=== PATIENT | female | born 1960 | race Caucasian/White ===

== ENCOUNTER 2016-02-08 15:15 | Outpatient (RCR) | payer MEDICAID ==
--- OUTSIDE RECORDS SUMMARY | 2016-02-04 15:07 | XMS REPORT | Continuity of Care Document ---
[facility] Address Unknown Phone Unavailable Care Team Providers Care Teacher Vocal Name Role Phone Marcus Richard PCP [phone] Source Comments Some departments are not documenting in the electronic medical record. If you do not see the information that you expected, contact Release of Information in the Health Information Management department at [phone] for further assistance in locating additional records.[facility] Active Allergies and Adverse Reactions Allergen Noted Date Severity Reactions Comments Erythromycin 03/23/2008 STOMACH UPSET All mycins Iodine 03/23/2008 HIVES Tolerates "BetaCept," Not Betadine. Iv Contrast Dye, Iodine 03/23/2008 HIVES Major Reaction to Containing Contrast. Latex 03/23/2008 HIVES, RASH, REDNESS Sulfa (Sulfonamide 03/23/2008 STOMACH UPSET Antibiotics) Current Medications Prescription Sig. Disp. Refills Start End Date Status Date alprazolam (XANAX) 0.5 mg Take 1 Tab by mouth Active tablet Daily. metformin (GLUCOPHAGE) Take 1 Tab by mouth Three Active 850 mg tablet Times Daily Before Meals. 30 min prior to each meal fish oil /omega-3 fatty Take 1 Cap by mouth Active acids (SEA-OMEGA) Daily. 340/1000 mg Cap MULTIVITAMINS Take 1 Cap by mouth Active (MULTI-VITAMIN PO) Daily. polysaccharide iron Take 150 mg by mouth Active complex (NIFEREX) 150 mg Twice Daily. Prescribed capsule to take bid, but has been taking 1 tab every other day, as of 03/10/09. hydrocodone/acetaminophen Take 1-2 Tabs by mouth 20 0 03/31/20 Active (VICODIN) 5/500 mg tablet Every 6 Hours as needed for Pain. senna/docusate Take 1 Tab by mouth 40 0 03/31/20 Active (SENOKOT-S) 8.6/50 mg Daily. 09 tablet levofloxacin (LEVAQUIN) Take 1 Tab by mouth 7 0 03/31/20 Active 500 mg tablet Daily. 09 hyoscyamine (LEVSIN/SL) 1 Tab Every 4 Hours as 50 1 03/31/20 Active 0.125 mg tablet needed for Cramps. 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 Pulse 80 03/31/2009 6:00 AM RETAIL ADVERTISING SALES MANAGER Temperature 36.6 C (97.9 F) 03/31/2009 6:00 AM RETAIL ADVERTISING SALES MANAGER Respiratory Rate - - Height 1.549 m (5' 1") 03/23/2009 3:00 PM RETAIL ADVERTISING SALES MANAGER Weight 68.1 kg (150 lb 2.1 oz) 03/23/2009 3:00 PM RETAIL ADVERTISING SALES MANAGER Body Mass Index 28.38 03/23/2009 3:00 PM RETAIL ADVERTISING SALES MANAGER Oxygen Saturation 95% 03/31/2009 6:00 AM RETAIL ADVERTISING SALES MANAGER Plan of Care Health Maintenance Due Date Last Done Comments Physical (Comprehensive) 1965 Exam Pertussis Vaccine 1969 Tetanus Vaccine 11/03/1975 Cervical Cancer Screening 11/03/1979 Breast Cancer Screening 1998 Colorectal Cancer 2008 Screening Influenza Vaccine 12/13/2015 Results from Last 3 Months Not on file
[2016-02-04 16:02] LABS: ANION GAP 12 MMOL/L (5-14); BLOOD UREA NITROGEN 9 MG/DL (7-18); BUN/CREATININE RATIO 23; CALCIUM 9.6 MG/DL (8.5-10.1); CARBON DIOXIDE 25 MMOL/L (21-32); CHLORIDE 103 MMOL/L (98-107); CREATININE SERUM 0.39 MG/DL (0.60-1.30); GFR ESTIMATED > 60; GLUCOSE 82 MG/DL (70-105); POTASSIUM 4.4 MMOL/L (3.6-5.0); SODIUM 140 MMOL/L (135-145)
[2016-02-04 17:00] VITALS: BP 129/73
--- NOTE | 2016-02-04 17:04 | Diagnostic Imaging Report ---
Portable AP view of the chest. INDICATION: PICC line adjustment. FINDINGS: Right PICC line is seen with the tip in the lower SVC level. The lungs are clear. The heart size is mildly enlarged. No effusion or pneumothorax. The mediastinum and sunday appear unremarkable. There is thoracolumbar scoliosis with posterior fusion spine rods seen. IMPRESSION: Right PICC line tip is at the lower SVC level. Dictated by: Dictated on workstation # [id number]
[2016-02-04] MEDS: GENTAMICIN IV SCH (17:15)
[2016-02-04] MEDS: NS IV SCH (17:15)
--- NOTE | 2016-02-04 17:54 | Diagnostic Imaging Report ---
INDICATION: PICC line. FINDINGS: Right PICC catheter malpositioned distally oriented up the neck with tip beyond the wules-ec-scoo passing along the jugular course. IMPRESSION: Malpositioned right PICC catheter distally oriented up the neck beyond the riljj-ee-pecy. Message left on Dr. Gonzalez's phone at 5:54 p.m. 02/04/2016/yvrose Dictated by: Dictated on workstation # [id number]
--- OUTSIDE RECORDS SUMMARY | 2016-02-05 10:05 | XMS REPORT | Continuity of Care Document ---
Author Author [facility] Organization [facility] Address Unknown Phone Unavailable Care Team Providers Care Manufacturing Engineering Technologist Name Role Phone Marcus Richard PCP [phone] Source Comments Some departments are not documenting in the electronic medical record. If you do not see the information that you expected, contact Release of Information in the Health Information Management department at [phone] for further assistance in locating additional records.[facility] Active Allergies and Adverse Reactions Allergen Noted [...] Taken Blood Pressure 114/70 03/31/2009 6:00 AM BLASTING WORKER Pulse 80 03/31/2009 6:00 AM BLASTING WORKER Temperature 36.6 C (97.9 F) 03/31/2009 6:00 AM BLASTING WORKER Respiratory Rate - - Height 1.549 m (5' 1") 03/23/2009 3:00 PM BLASTING WORKER Weight 68.1 kg (150 lb 2.1 oz) 03/23/2009 3:00 PM BLASTING WORKER Body Mass Index 28.38 03/23/2009 3:00 PM BLASTING WORKER Oxygen Saturation 95% 03/31/2009 6:00 AM BLASTING WORKER Plan of Care Health Maintenance Due Date Last Done Comments Physical (Comprehensive) 1965 Exam Pertussis Vaccine 1969 Tetanus Vaccine 11/03/1975 Cervical Cancer Screening 11/03/1979 Breast Cancer Screening 1998 Colorectal Cancer 2008 Screening Influenza Vaccine 12/13/2015 Results from Last 3 Months Not on file
[2016-02-05] MEDS: GENTAMICIN IV SCH (14:05)
[2016-02-05] MEDS: NS IV SCH (14:05)
[2016-02-05 15:22] VITALS: BP 118/71
[2016-02-06] MEDS: NS IV SCH (15:20)
[2016-02-06] MEDS: GENTAMICIN IV SCH (15:20)
[2016-02-06 16:18] VITALS: BP 114/75
[2016-02-07] MEDS: NS IV SCH (15:00)
[2016-02-07] MEDS: GENTAMICIN IV SCH (15:00)
[2016-02-07 16:30] VITALS: BP 110/71
[~2016-02-08] VITALS: Ht 154.9 cm; Wt 61.2 kg
[~2016-02-08 15:15] MED LIST: ALPR.5T; ALPR.5T PO; ALPR0.5T7 PO; BENZ100C8 PO; CIPR-225 PO; CIPR500S2 PO; CODE120S3 PO; CPH500CIP PO; DOXY100T61 PO; FLUC200T PO; GLUC1CAP37; GUAI10SY4 PO; HYDR-2890 PO; HYDR-3720; HYDR-3812 PO; HYDR1TAB; IPRA3AMP11 INH; KEFLEX; LEVO500T2 PO; LEVO500T69; LEVO500T69 PO; LVF500T PO; MENT3.5O TP; METF850T2; METF850T2 PO; METFOR850T PO; MULT-608 PO; NEBU1KIT17 MC; NYST1POW15 TOP; OMG1KC; OXYC10TA63 PO; OXYC10TA7 PO; Prednisone PO; SULF1TAB38; VANC250C4 PO
[2016-02-08] MEDS: NS IV SCH (15:15)
[2016-02-08] MEDS: GENTAMICIN IV SCH (15:15)
[2016-02-08 16:03] LABS: BILIRUBIN,URINE NEGATIVE (NEGATIVE); KETONES,URINE NEGATIVE (NEGATIVE); LEUKOCYTE ESTERASE ,URINE 2+ (NEGATIVE); NITRITE,URINE NEGATIVE (NEGATIVE); PH,URINE 6 (5-9); PROTEIN,URINE 1+ (NEGATIVE); UROBILINOGEN,URINE NORMAL (NORMAL)
[2016-02-08 16:14] LABS: CALCIUM OXALATE CRYSTALS,UR FEW /LPF
[2016-02-08 16:35] VITALS: BP 112/74
[2016-04-26] MEDS ORDERED: HYDR-3820 PO (20:16)
== END 2016-05-04 | disposition home or self-care (01) ==
LOC: SDC 15:15
PROVIDERS: ATTEND Family Medicine
DX: N39.0 Urinary tract infection, site not specified (principal)
CPT/HCPCS: 36415; 36569; 71010; 76937; 80048; 80170; 81000; 87077; 87088; 87186; 96365; 99211

== ENCOUNTER 2016-04-26 19:11 | Emergency (ER) | payer MEDICAID ==
[~2016-04-26] VITALS: Ht 154.9 cm; Wt 61.2 kg
--- OUTSIDE RECORDS SUMMARY | 2016-04-26 19:17 | XMS REPORT | Continuity of Care Document ---
Author Author [facility] Organization [facility] Address Unknown Phone Unavailable Care Team Providers Care Vocational Training Instructor Name Role Phone Marcus Richard PCP [phone] Source Comments Some departments are not documenting in the electronic medical record. If you do not see the information that you expected, contact Release of Information in the Health Information Management department at [phone] for further assistance in locating additional records.[facility] Active Allergies and Adverse Reactions Allergen [...] mg tablet Every 6 Hours as needed 09 for Pain. senna/docusate Take 1 Tab by [...] Taken Blood Pressure 114/70 03/31/2009 6:00 AM DIRECTOR OF FOOD AND BEVERAGE SERVICES Pulse 80 03/31/2009 6:00 AM DIRECTOR OF FOOD AND BEVERAGE SERVICES Temperature 36.6 C (97.9 F) 03/31/2009 6:00 AM DIRECTOR OF FOOD AND BEVERAGE SERVICES Respiratory Rate - - Height 1.549 m (5' 1") 03/23/2009 3:00 PM DIRECTOR OF FOOD AND BEVERAGE SERVICES Weight 68.1 kg (150 lb 2.1 oz) 03/23/2009 3:00 PM DIRECTOR OF FOOD AND BEVERAGE SERVICES Body Mass Index 28.38 03/23/2009 3:00 PM DIRECTOR OF FOOD AND BEVERAGE SERVICES Oxygen Saturation 95% 03/31/2009 6:00 AM DIRECTOR OF FOOD AND BEVERAGE SERVICES Plan of Care Health Maintenance Due Date Last Done Comments Physical (Comprehensive) 1965 Exam Pertussis Vaccine 1969 Tetanus Vaccine 11/03/1975 Cervical Cancer Screening 11/03/1979 Breast Cancer Screening 1998 Colorectal Cancer 2008 Screening Influenza Vaccine 12/13/2015 Results from Last 3 Months Not on file
[2016-04-26] MEDS ORDERED: HYDR-3820 PO (20:16)
[2016-04-26 20:55] LABS: BILIRUBIN,URINE NEGATIVE (NEGATIVE); KETONES,URINE NEGATIVE (NEGATIVE); LEUKOCYTE ESTERASE ,URINE NEGATIVE (NEGATIVE); NITRITE,URINE NEGATIVE (NEGATIVE); PH,URINE 6 (5-9); PROTEIN,URINE NEGATIVE (NEGATIVE); UROBILINOGEN,URINE NORMAL (NORMAL)
[2016-04-26 21:01] LABS: SQUAMOUS EPITHELIAL CELL,UR 0-2 /HPF
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
[2016-04-26 22:17] VITALS: BP 117/56
== END 2016-04-26 22:17 | disposition home or self-care (01) ==
LOC: EDUNIT# 19:11 → ER 19:13
DX: R10.2 Pelvic and perineal pain (principal); T83.021A Displacement of indwelling urethral catheter, initial encounter; E11.9 Type 2 diabetes mellitus without complications; F17.210 Nicotine dependence, cigarettes, uncomplicated; N31.9 Neuromuscular dysfunction of bladder, unspecified; Z79.84 Long term (current) use of oral hypoglycemic drugs
CPT/HCPCS: 51702; 81000

== ENCOUNTER 2016-05-14 15:43 | Emergency (ER) | payer MEDICAID ==
[~2016-05-14] VITALS: Ht 154.9 cm; Wt 61.2 kg
[~2016-05-14 15:43] MED LIST changes: +HYDR-3820 PO
--- OUTSIDE RECORDS SUMMARY | 2016-05-14 15:50 | XMS REPORT | Continuity of Care Document ---
Author Author [facility] Organization [facility] Address Unknown Phone Unavailable Care Team Providers Care Salesperson Automobiles Name Role Phone Marcus Richard PCP [phone] Source Comments Some departments are not documenting in the electronic medical record. If you do not see the information that you expected, contact Release of Information in the Health Information Management department at [phone] for further assistance in locating additional records.[facility] Active Allergies and Adverse Reactions Allergen Noted [...] Taken Blood Pressure 114/70 03/31/2009 6:00 AM UPFITTER Pulse 80 03/31/2009 6:00 AM UPFITTER Temperature 36.6 C (97.9 F) 03/31/2009 6:00 AM UPFITTER Respiratory Rate - - Height 1.549 m (5' 1") 03/23/2009 3:00 PM UPFITTER Weight 68.1 kg (150 lb 2.1 oz) 03/23/2009 3:00 PM UPFITTER Body Mass Index 28.38 03/23/2009 3:00 PM UPFITTER Oxygen Saturation 95% 03/31/2009 6:00 AM UPFITTER Plan of Care Health Maintenance Due Date Last Done Comments Physical (Comprehensive) 1965 Exam Pertussis Vaccine 1969 Tetanus Vaccine 11/03/1975 Cervical Cancer Screening 11/03/1979 Breast Cancer Screening 1998 Colorectal Cancer 2008 Screening Influenza Vaccine 12/13/2015 Results from Last 3 Months Not on file
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
--- NOTE | 2016-05-14 17:51 | Diagnostic Imaging Report ---
EXAMINATION: Abdominal series with PA chest INDICATION: Abdominal pain and constipation. FINDINGS: Scoliotic curvature of the thoracolumbar spine is again demonstrated with previous Hwang johanne fixation. Heart size is stable without evidence of failure. There is no focal alveolar consolidation demonstrated. There is no large effusion or pneumothorax. There are diffusely gaseous filled loops of both small and large bowel with a large degree of stool demonstrated within the colon. There is no significant small bowel dilatation to suggest obstruction. Dystrophic changes of the hips are present. The bones are diffusely osteopenic. IMPRESSION: 1. No evidence of an acute cardiopulmonary process. 2. Gas-filled small and large bowel are demonstrated without significant dilatation to suggest obstruction. There is a large degree of stool within the colon compatible with history of constipation. 3. Marked spinal scoliosis with previous bilateral Hwang johanne fixation. Dictated by: Dictated on workstation # [id number]
[2016-05-14 18:49] VITALS: BP 143/75
== END 2016-05-14 18:51 | disposition home or self-care (01) ==
LOC: EDUNIT# 15:43 → ER 15:44
DX: K59.00 Constipation, unspecified (principal); M41.9 Scoliosis, unspecified
CPT/HCPCS: 74022; 99282

== ENCOUNTER 2016-05-16 19:00 | Observation (INO) | payer MEDICAID ==
[~2016-05-16] VITALS: Ht 154.9 cm; Wt 61.2 kg
[2016-05-16 19:15] VITALS: BP 128/80
--- OUTSIDE RECORDS SUMMARY | 2016-05-16 19:31 | XMS REPORT | Continuity of Care Document ---
Author Author [facility] Organization [facility] Address Unknown Phone Unavailable Care Team Providers Care Environmental Field Office Manager Name Role Phone Marcus Richard PCP [phone] Source Comments Some departments are not documenting in the electronic medical record. 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 [employer] Pulse 80 03/31/2009 6:00 AM [employer] Temperature 36.6 C (97.9 F) 03/31/2009 6:00 AM [employer]NA[employer] Respiratory Rate - - Height 1.549 m (5' 1") 03/23/2009 3:00 PM [employer] Weight 68.1 kg (150 lb 2.1 oz) 03/23/2009 3:00 PM [employer] Body Mass Index 28.38 03/23/2009 3:00 PM [employer] Oxygen Saturation 95% 03/31/2009 6:00 AM [employer] Plan of Care Health Maintenance Due Date Last Done Comments Physical (Comprehensive) 1965 Exam Pertussis Vaccine 1969 Tetanus Vaccine 11/03/1975 Cervical Cancer Screening 11/03/1979 Breast Cancer Screening 1998 Colorectal Cancer 2008 Screening Influenza Vaccine 12/13/2015 Results from Last 3 Months Not on file
[2016-05-16] MEDS ORDERED: MINERAL OIL ENEMA 133 ML BTL PR NR (19:45)
[2016-05-16] MEDS ORDERED: PATIENT MAY USE OWN MED,SINGLE MED PO SCH (19:45)
--- NOTE | 2016-05-16 20:23 | Diagnostic Imaging Report ---
INDICATION: Patient has not defecated in 14 days, recently on antibiotics and was given Imodium to offset the diarrhea, he has been constipated since. FINDINGS: Supine view of the abdomen demonstrates a large amount of stool throughout the colon. Small bowel loops appear unremarkable. Severe scoliosis and postoperative changes are seen in the spine. Degenerative changes are present in the hips. IMPRESSION: There is a large amount of stool throughout the colon. Dictated by: Dictated on workstation # [id number]
[2016-05-16] MEDS: POLYETHYLENE GLYCOL 17 GM (MIRALAX) PACK PO SCH ×2 (20:53→23:04)
[2016-05-16] MEDS: ENOXAPARIN 30 MG/0.3 ML (LOVENOX) SYR SC SCH (20:54)
[2016-05-17] VITALS: BP 115/56
[2016-05-17] MEDS: POLYETHYLENE GLYCOL 17 GM (MIRALAX) PACK PO SCH ×6 (03:34→23:23)
[2016-05-17 04:00] VITALS: BP 125/58
[2016-05-17 04:59] LABS: BASOPHILS % (AUTO) 0 % (0-10); EOSINOPHILS # (AUTO) 0.3 10^3/uL (0.0-0.3); EOSINOPHILS % (AUTO) 3 % (0-10); LYMPHOCYTES # (AUTO) 3.6 X 10^3 (1.0-4.0); LYMPHOCYTES % (AUTO) 39 % (12-44); MEAN CORPUSCULAR HEMOGLOBIN 31 PG (25-34); MEAN CORPUSCULAR HGB CONC 32 G/DL (32-36); MEAN CORPUSCULAR VOLUME 97 FL (80-99); MONOCYTES % (AUTO) 11 % (0-12); NEUTROPHILS # (AUTO) 4.3 X 10^3 (1.8-7.8); NEUTROPHILS % (AUTO) 46 % (42-75); PLATELET COUNT 245 10^3/uL (130-400); RED BLOOD COUNT 4.02 10^6/uL (4.35-5.85); RED CELL DISTRIBUTION WIDTH 14.3 % (10.0-14.5); WHITE BLOOD COUNT 9.3 10^3/uL (4.3-11.0)
[2016-05-17 08:22] VITALS: BP 108/73
[2016-05-17] MEDS ORDERED: BISACODYL 5 MG (DULCOLAX) TABLET PO ONE (11:30)
[2016-05-17] MEDS: HYDROcodone/APAP 10 MG/325 MG (LORTAB) TAB PO SCH ×3 (11:30→23:23)
[2016-05-17] MEDS ORDERED: MINERAL OIL CONCENTRATE 99.9% 15 ML UDC PO ONE (11:30)
[2016-05-17] MEDS ORDERED: BISACODYL 10 MG SUPP (DULCOLAX) PR ONE (11:30)
[2016-05-17] MEDS ORDERED: METHYLNALTREXONE 12 MG/0.6 ML (RELISTOR) VIAL SQ ONE (11:30)
--- NOTE | 2016-05-17 11:33 | Progress Note-Hospitalist ---
Standard Progress Note Progress Notes/Assess & Plan Date Seen 05/17/16 Assess & Plan/Chief Complaint The patient is a 55-year-old white female known to me for many years. She has Charcot Minerva Tooth muscular dystrophy. She was being treated for an Escherichia coli urinary tract infection about 17 days ago. She had been placed on Macrobid and about the second day began to have diarrhea. She states that this has happened before. She is normally relatively constipated with a bowel movement every 2 days. She was given Lomotil in addition to her usual oral narcotic pain relievers. By the second day she had no more stools. She stopped the Lomotil and has not had a bowel movement for now 14 days. She was seen by Dr. Mccullough in the emergency room on 05/14 and given a more aggressive regimen to produce a bowel movement. This had been unsuccessful and she had return to the emergency room. At the behest of both Dr. Mccullough and the patient she was then admitted directly for more aggressive bowel management. The x-rays from 05/14 and 05/16 could basically be carbon copies with distended bowel and a great deal of stool albeit apparently none in the rectum. Physical exam: She is alert and precise as to dates and effects. Lungs are clear to auscultation. CV is regular without murmur. The abdomen is distended and soft. No bowel sounds are heard. Impression: Obstipation. 2.Charcot Minerva tooth muscular dystrophy. Plan: Aggressive use of laxatives. See orders. Labs Laboratory Tests 05/17/16 03:50 HONG SMART MD May 17, 2016 11:33
[2016-05-17 12:00] VITALS: BP 111/53
[2016-05-17 16:32] VITALS: BP 109/53
[2016-05-17] MEDS: metFORMIN 850 MG (GLUCOPHAGE) TAB PO SCH (17:20)
[2016-05-17] MEDS: ENOXAPARIN 30 MG/0.3 ML (LOVENOX) SYR SC SCH (19:45)
[2016-05-17] MEDS: ALPRAZolam 0.5 MG (XANAX) TAB PO PRN (19:51)
[2016-05-17 20:50] VITALS: BP 119/53
[2016-05-18] VITALS: BP 104/53
[2016-05-18] MEDS: POLYETHYLENE GLYCOL 17 GM (MIRALAX) PACK PO SCH ×6 (02:58→23:45)
[2016-05-18 04:20] VITALS: BP 97/49
[2016-05-18] MEDS: HYDROcodone/APAP 10 MG/325 MG (LORTAB) TAB PO SCH ×4 (05:59→22:49)
[2016-05-18 08:00] VITALS: BP 90/50
[2016-05-18] MEDS: metFORMIN 850 MG (GLUCOPHAGE) TAB PO SCH ×3 (08:41→16:00)
--- NOTE | 2016-05-18 10:59 | Diagnostic Imaging Report ---
CLINICAL INDICATION: Patient with history of abdominal pain and constipation. Exam: KUB x-ray. Of note, the left side of the abdomen is not completely imaged. Comparison: KUB x-ray dated 05/16/2016. Findings: There is interval decreased stool burden compared to the prior study. There is a small amount of stool in the rectosigmoid region. Air distended loops of colon are again seen which has decreased compared to the prior study. There is no evidence of intra-abdominal free air seen on this exam. Dextroscoliosis of the lumbar spine with stabilization rods again seen. IMPRESSION: 1: Interval decreased stool burden and interval decrease gaseous distention of the colon compared to the prior study. Dictated by: Dictated on workstation # [id number]
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
[2016-05-18 12:00] VITALS: BP 124/82
--- NOTE | 2016-05-18 12:01 | Progress Note-Hospitalist ---
Standard Progress Note Progress Notes/Assess & Plan Date Seen 05/18/16 Diagnosis Charcot Minerva tooth disease. 2.severe constipation. 3.diabetes on oral agents. Assess & Plan/Chief Complaint There has been no bowel activity to this point. There has been a bit of mucous with slight brown staining. Physical exam: The abdomen seems less distended and KUB suggests that the bowel gas is less. There is now active bowel sounds throughout the abdomen but particularly at the splenic flexure and downward from the left. There is some palpable peristalsis as well. Impression: Evidence of peristalsis Plan: Continue MiraLAX and had 2 Dulcolax suppositories again Labs Laboratory Tests 05/17/16 03:50 HONG SMART MD May 18, 2016 12:01
[2016-05-18] MEDS ORDERED: BISACODYL 10 MG SUPP (DULCOLAX) PR ONE (12:15)
[2016-05-18 16:45] VITALS: BP 106/52
[2016-05-18 20:42] VITALS: BP 121/56
[2016-05-18] MEDS: ENOXAPARIN 30 MG/0.3 ML (LOVENOX) SYR SC SCH (21:06)
[2016-05-19] VITALS: BP 114/54
[2016-05-19] MEDS: POLYETHYLENE GLYCOL 17 GM (MIRALAX) PACK PO SCH ×6 (03:45→23:30)
[2016-05-19] MEDS: metFORMIN 850 MG (GLUCOPHAGE) TAB PO SCH ×3 (06:11→17:24)
[2016-05-19] MEDS: HYDROcodone/APAP 10 MG/325 MG (LORTAB) TAB PO SCH ×4 (06:11→23:29)
[2016-05-19 08:40] VITALS: BP 126/66
[2016-05-19] MEDS ORDERED: FLUT16SP22 NS (10:12)
[2016-05-19] MEDS ORDERED: OXYC10TA7 PO (10:12)
[2016-05-19] MEDS ORDERED: L.AC1CAP6 PO (10:14)
[2016-05-19] MEDS ORDERED: CRAN1CAP7 PO (10:14)
[2016-05-19] MEDS: ALPRAZolam 0.5 MG (XANAX) TAB PO PRN (10:22)
[2016-05-19] MEDS ORDERED: BISACODYL 5 MG (DULCOLAX) TABLET PO NR (13:15)
--- NOTE | 2016-05-19 13:15 | Progress Note-Hospitalist ---
Standard Progress Note Progress Notes/Assess & Plan Date Seen 05/19/16 Diagnosis Charcot Minerva tooth disease. 2.severe constipation. 3.diabetes on oral agents. Assess & Plan/Chief Complaint The patient reports that she has had the passage of a small amount of semi- liquid material which is brown in color. This cannot represent a total of her stool load however it has released the pressure and she reports that she doesn' t really have the discomfort that she had on admission. She has refused her MiraLAX through the night and has been reluctant to go ahead with the soapsuds enema. I have explained the logic to her and she reports she is going to go ahead at this time. Physical exam: She is alert and oriented. Lungs are clear to auscultation. CV is regular without murmur. The abdomen is soft, bowel sounds are active. There is no tenderness to palpation Impression: Continued obstipation now day 16 since last bowel movement Plan: Dulcolax tabs by mouth and soapsuds enema HONG SMART MD May 19, 2016 13:15
[2016-05-19 16:43] VITALS: BP 115/56
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
[2016-05-19] MEDS: ENOXAPARIN 30 MG/0.3 ML (LOVENOX) SYR SC SCH (20:39)
[2016-05-20 00:40] VITALS: BP 104/51
[2016-05-20 02:44] LABS: KETONES,URINE 1+ (NEGATIVE); LEUKOCYTE ESTERASE ,URINE 3+ (NEGATIVE); NITRITE,URINE POSITIVE (NEGATIVE); PH,URINE 5 (5-9); PROTEIN,URINE 1+ (NEGATIVE); UROBILINOGEN,URINE 1 MG/DL (NORMAL)
[2016-05-20 02:59] LABS: BILIRUBIN,URINE 1+ (NEGATIVE)
[2016-05-20 03:00] LABS: WBC,URINE 50-100 /HPF
[2016-05-20] MEDS: POLYETHYLENE GLYCOL 17 GM (MIRALAX) PACK PO SCH ×2 (03:45→07:45)
[2016-05-20] MEDS: HYDROcodone/APAP 10 MG/325 MG (LORTAB) TAB PO SCH (06:31)
[2016-05-20 08:00] VITALS: BP 109/70
[2016-05-20] MEDS: metFORMIN 850 MG (GLUCOPHAGE) TAB PO SCH (09:53)
--- NOTE | 2016-05-20 10:50 | Discharge Summary-Hospitalist ---
Diagnosis/Chief Complaint Date of Admission May 16, 2016 at 19:00 Date of Discharge Discharge Date: May 20, 2016 Discharge Time: 1100 Admission Diagnosis Charcot Minerva tooth disease. 2.severe constipation. 3.diabetes on oral agents. Discharge Diagnosis 1. severe constipation following Lomotil administration 2.diabetes on oral agents. 3. Charcot Minerva tooth disease with subsequent paralysis and severe disability requiring 24/7 caretakers 4. Non-compliance with medical treatments 5. recurrent UTI culture pending at time of discharge the placed empirically on Cipro but likely colonized due to catheter Reason Hospital Visit/Course The patient is a 55-year-old white female known to me. 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 She reports that 3 weeks ago she was thought to have a urinary tract infection and had been given antibiotics. She then developed diarrhea and was given Lomotil by Derrell Ortiz at [facility]. She took that for 2 days and has not had a bowel movement since for a total of 13 days at admission. KUB shows considerable gas and stool throughout the colon but not apparently in the rectum. Her normal function is towards constipation. She uses MiraLAX and hopes for a stool every 2 days. She is also been taking opiates for back pain. Notes from 05/20/2016: Chart Review: Pt is on 4th day of observation and has been noncompliant with medical advice. Pt is currently having loose stools. Pt is suspected of being impacted in upper colon. No fever Vitals stable Ua shows 50-100 double BCs Cx pending Has hx of UTI yeast pusher: RN states that pt is stable for DC, and has been declining medical advice. Patient Interview: Dr. Huerta informs pt that she has discussed DC plans with [facility] with a follow-up with Dr. Choe tomorrow morning at 9:30. Pt states that she will manage DC transportation herself. Pt would like prescriptions sent to [facility]. Dr. Huerta discusses pending urine culture, and treatment plans. Physical exam stable. Patient is not following medical treatments and has a long history of noncompliance so we'll try to support this patient anyway possible that she will allow No fever, vital signs stable, pleasant, oriented 3 Regular rate and rhythm, clear to auscultation bilaterally Catheter in place No edema Plan: Antibiotic empirically but likely colonized and may very well discontinue antibiotics once follow-up assesses patient tomorrow and review Ucx when results when completed Follow-up with Dr. Choe tomorrow morning Scribed by Michele Rivas under the direct supervision of Dr. Huerta. Discharge Summary Discharge Physical Examination Allergies: Coded Allergies: Sulfa (Sulfonamide Antibiotics) (Unverified Allergy, Mild, 07/29/08) Iodinated Contrast Media - Oral and (Verified Allergy, Unknown, 07/30/08) latex (Verified Allergy, Unknown, 07/30/08) povidone-iodine (Unverified Allergy, Unknown, 08/28/13) soap (Unverified Allergy, Unknown, 08/28/13) Uncoded Allergies: CONTRAST DYE (Allergy, Mild, 07/29/08) EES (Allergy, Mild, 07/29/08) Vitals & I&Os Vital Signs Date Time Temp Pulse Resp B/P Pulse Ox O2 Delivery O2 Flow Rate FiO2 05/20/16 09:00 94 Room Air 05/20/16 08:00 96.8 103 24 109/70 Hospital Course Labs (last 24 hrs) Laboratory Tests 05/20/16 02:35: Urine Bacteria LARGEH, Urine Bilirubin 1+H, Urine Casts NONE, Urine Clarity SLIGHTLY CLOUDY, Urine Color YELLOW, Urine Crystals NONE, Urine Culture Indicated YES, Urine Glucose (UA) NEGATIVE, Urine Ketones 1+H, Urine Leukocyte Esterase 3+H, Urine Mucus NEGATIVE, Urine Nitrite POSITIVEH, Urine Protein 1+H, Urine RBC NONE, Urine RBC (Auto) NEGATIVE, Urine Specific [place] 1.020, Urine Squamous Epithelial Cells 2-5, Urine Urobilinogen 1, Urine WBC 50-100H, Urine pH 5 Discharge Home Medications: Active Scripts Active Cipro (Ciprofloxacin HCl) 500 Mg Tablet 500 Mg PO BID Glycolax (Polyethylene Glycol 3350) 119 Gm Powder 119 Gm PO TID Lactulose 20 Gm/30 Ml Solution 30 Gm PO QID Reported Probiotic (L.acidoph & Paracasei,B.lactis) 1 Each Capsule 1 Cap PO DAILY Cranberry Plus Vitamin C Sftgl (Cranberry Conc/Ascorbic Acid) 1 Each Capsule 1 Cap PO DAILY Oxycodone HCl 10 Mg Tablet 10 Mg PO Q6H PRN Fluticasone Propionate 16 Gm [place].susp 1 [place] NS DAILY Hydrocodon-Acetaminophn 10-325 (Hydrocodone/Acetaminophen) 1 Each Tablet 1 Tab PO Q6H PRN Metformin Hcl 850 Mg Tablet 850 Mg PO TIDAC Alprazolam 0.5 Mg Tablet 0.5 Mg PO TID PRN Multiple Vitamin (Multivitamins) 1 Tab Tablet 1 Tab PO DAILY Instructions to patient/family Please see electonic discharge instructions given to patient. Clinical Quality Measures DVT/VTE Risk/Contraindication: Risk Factor Score Per Nursin RFS Level Per Nursing on Admit: 4+=Very High SHORTY HUERTA DO May 20, 2016 10:50
[2016-05-20] MEDS ORDERED: LACT20SO2 PO (11:07)
[2016-05-20] MEDS ORDERED: POLY119P12 PO (11:07)
[2016-05-20] MEDS ORDERED: CIPR-225 PO (11:08)
--- NOTE | 2016-05-20 11:25 | Discharge Instructions ---
Discharge Instructions Discharge Medications New, Converted or Re-Newed RX: Transmitted to Pharmacy New Medications: Ciprofloxacin HCl (Cipro) 500 Mg Tablet 500 MG PO BID #14 TAB Lactulose (Lactulose) 20 Gm/30 Ml Solution 30 GM PO QID #8 OZ Polyethylene Glycol 3350 (Glycolax) 119 Gm Powder 119 GM PO TID #8 OZ Continued Medications: Alprazolam (Alprazolam) 0.5 Mg Tablet 0.5 MG PO TID PRN ANXIETY TAB Cranberry Conc/Ascorbic Acid (Cranberry Plus Vitamin C Sftgl) 1 Each Capsule 1 CAP PO DAILY CAP Fluticasone Propionate (Fluticasone Propionate) 16 Gm [place].susp 1 SPRAY NS DAILY EA Hydrocodone/Acetaminophen (Hydrocodon-Acetaminophn 10-325) 1 Each Tablet 1 TAB PO Q6H PRN PAIN TAB L.acidoph & Paracasei,B.lactis (Probiotic) 1 Each Capsule 1 CAP PO DAILY CAP Metformin Hcl (Metformin Hcl) 850 Mg Tablet 850 MG PO TIDAC TAB Multivitamins (Multiple Vitamin) 1 Tab Tablet 1 TAB PO DAILY TAB Oxycodone HCl (Oxycodone HCl) 10 Mg Tablet 10 MG PO Q6H PRN SEVERE PAIN TAB Patient Instructions Goal/Follow Up Appt: Dr Radha Choe at [facility] 05/21/16 at 0930 Patient Instructions: Take Lactulose and Miralax until bowels have completely evacuated Return to The Hospital For: Severe abdominal pain or severe vomiting Activity & Diet Discharge Diet: No Restrictions Activity as Tolerated: Yes SHORTY HUERTA DO May 20, 2016 11:25
[2016-05-20 13:17] VITALS: BP 109/70
== END 2016-05-20 13:17 | disposition home or self-care (01) ==
LOC: 4TH 19:00 → UNDOADMOB 19:00 → 4TH 19:10
PROVIDERS: ADMIT Internal Medicine; ATTEND Internal Medicine
DX: K59.00 Constipation, unspecified (principal); E11.9 Type 2 diabetes mellitus without complications; Z79.84 Long term (current) use of oral hypoglycemic drugs; G60.0 Hereditary motor and sensory neuropathy; Z91.19 Patient's noncompliance with other medical treatment and regimen; T83.511A Infection and inflammatory reaction due to indwelling urethral catheter, initial encounter
CPT/HCPCS: 36415; 74000; 81000; 82962; 85025; 87088; 87186; 99211; G0378

== ENCOUNTER 2016-09-21 18:49 | Emergency (ER) | payer MEDICAID ==
[~2016-09-21] VITALS: Ht 154.9 cm; Wt 61.2 kg
[~2016-09-21 18:49] MED LIST changes: +CRAN1CAP7 PO; +FLUT16SP22 NS; +L.AC1CAP6 PO; +LACT20SO2 PO; +POLY119P12 PO
[2016-09-21] MEDS ORDERED: AMOX1TAB11 (19:14)
--- NOTE | 2016-09-21 19:59 | ED General ---
General Chief Complaint: -Female Stated Complaint: UTI SYMPTOMS Nursing Triage Note: currently being treated for uti, reports needing outpatient iv antibiotics. Nursing Sepsis Screen: No Definite Risk Source of Information: Patient Exam Limitations: No Limitations History of Present Illness Time Seen by Provider: 19:30 Initial Comments Here with report of urinary tract infection and increasing concerns for the need for IV antibiotics. 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 She's had recent Escherichia coli infection that they have been trying to treat with Augmentin. She had a few rounds of this and it seemed to get better but then got worse over the weekend. She was being evaluated for possible PICC line placement and IV antibiotics. She was unable to wait until tomorrow because she was feeling very bad today. She reports weakness, nausea, fatigue and overall just not feeling well. Has not had vomiting. She has small rash to her chest that has not spread. She is unsure what that is related to. Denies any pain or breathing problems. Denies fever but has chills. Timing/Duration: 1 Week, Changing Over Time, Getting Worse Severity: Moderate Associated Systoms: No Chest Pain, No Cough, Fever/Chills, Loss of Appetite, Nausea/Vomiting, Rash, No Shortness of Air, No Weakness Allergies and Home Medications Allergies Coded Allergies: Sulfa (Sulfonamide Antibiotics) (Unverified Allergy, Mild, 07/29/08) Iodinated Contrast Media - Oral and (Verified Allergy, Unknown, 07/30/08) latex (Verified Allergy, Unknown, 07/30/08) povidone-iodine (Unverified Allergy, Unknown, 08/28/13) soap (Unverified Allergy, Unknown, 08/28/13) Uncoded Allergies: CONTRAST DYE (Allergy, Mild, 07/29/08) EES (Allergy, Mild, 07/29/08) Home Medications Alprazolam 0.5 Mg Tablet, 0.5 MG PO TID PRN for ANXIETY, (Reported) Amoxicillin/Potassium Clav 1 Each Tablet, #30 (Reported) Cranberry Conc/Ascorbic Acid 1 Each Capsule, 1 CAP PO DAILY, (Reported) Fluticasone Propionate 16 Gm [place].susp, 1 SPRAY NS DAILY, (Reported) L.acidoph & Paracasei,B.lactis 1 Each Capsule, 1 CAP PO DAILY, (Reported) Lactulose 20 Gm/30 Ml Solution, 30 GM PO QID, #8 Prescribed by: SHORTY HUERTA on 05/20/16 1107 Metformin Hcl 850 Mg Tablet, 850 MG PO TIDAC, (Reported) Multivitamins 1 Tab Tablet, 1 TAB PO DAILY, (Reported) Oxycodone HCl 10 Mg Tablet, 10 MG PO Q6H PRN for SEVERE PAIN, (Reported) Polyethylene Glycol 3350 119 Gm Powder, 119 GM PO TID, #8 Prescribed by: SHORTY HUERTA on 05/20/167 Constitutional: see HPI, chills, No fever, malaise EENTM: no symptoms reported Respiratory: no symptoms reported, No cough, No short of breath Cardiovascular: No chest pain, No edema, No palpitations Gastrointestinal: see HPI, No diarrhea, nausea, No vomiting Genitourinary: see HPI, No dysuria : No Musculoskeletal: no symptoms reported Skin: see HPI, rash, other (history of sacral wound that is currently under treatment.) Psychiatric/Neurological: No Symptoms Reported All Other Systems Reviewed Negative Unless Noted: Yes Past Vijupis-Dlbczn-Dsblrg Hx Patient Social History Alcohol Use: Denies Use Recreational Drug Use: No Smoking Status: Current Everyday Smoker Type Used: Cigarettes 2nd Hand Smoke Exposure: Yes Recent Foreign Travel: No Contact w/Someone Who Travel: No Recent Infectious Disease Expo: No Recent Hopitalizations: No Immunizations Up To Date Tetanus Booster (TDap): Unknown Date of Pneumonia Vaccine: Feb 28, 2011 Date of Influenza Vaccine: Mar 02, 2016 Seasonal Allergies Seasonal Allergies: Yes Surgeries HX Surgeries: Yes (HEEL CORD LENGTHENING, SPINAL FUSION, ischial tuberocity wound) Surgeries: Gallbladder, Orthopedic Respiratory Hx Respiratory Disorders: Yes Respiratory Disorders: Pneumonia Cardiovascular Hx Cardiac Disorders: No Neurological Hx Neurological Disorders: Yes ([id number], NON-AMBULATORY) Reproductive System : No Hx Reproductive Disorders: Yes 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 Genitourinary Hx Genitourinary Disorders: Yes (INDWELLING LANDRUM SINCE 2008) Genitourinary Disorders: Kidney Stones, Neurogenic Bladder, UTI-Chronic Gastrointestinal Hx Gastrointestinal Disorders: Yes (AGE 14) Gastrointestinal Disorders: Colitis, Ulcer Musculoskeletal Hx Musculoskeletal Disorders: Yes ([id number] AND IS NON-AMBULATORY) Endocrine Hx Endocrine Disorders: Yes Endocrine Disorders: Diabetes, Non-Insulin dep HEENT HX ENT Disorders: No Loss of Vision: Denies Hearing Impairment: Denies Cancer Hx Cancer: No Psychosocial Hx Psychiatric Problems: Yes Behavioral Health Disorders: Anxiety Integumentary HX Skin/Integumentary Disorder: Yes (CHRONIC SACRAL DECUB ULCER SINCE 2008) Blood Transfusions Hx Blood Disorders: No Adverse Reaction to a Blood Tr: No Reviewed Nursing Assessment Reviewed/Agree w Nursing PMH: Yes Family Medical History Family Medial History: FH: breast cancer 19 MOTHER, Onset:Unknown FH: pneumonia 19 FATHER, Onset:60 years & older Gout 19 FATHER, Onset:Unknown Hypertension 19 FATHER, Onset:Unknown Physical Exam-Suspected Sepsis Physical Exam Vital Signs Vital Sign - Last 12Hours 09/21/16 19:15 Temp 97.7 Pulse 99 Resp 18 B/P (MAP) 127/75 Pulse Ox 99 O2 Delivery Room Air Capillary Refill : Less Than 3 Seconds Blood Pressure Mean: 92 General Appearance: No Apparent Distress, WD/WN HEENT: PERRL/EOMI, Pharynx Normal Neck: Normal Inspection, Non Tender, Supple Respiratory: Lungs Clear, Normal Breath Sounds Cardiovascular: Regular Rate, Rhythm, No Murmur Gastrointestinal: Non Tender, Soft Back: Normal Inspection, No CVA Tenderness, No Vertebral Tenderness Extremity: Normal Capillary Refill, Normal Range of Motion, Non Tender Neurologic/Psychiatric: Alert, Oriented x3 Skin: normal color, warm/dry Focused Exam Lactic Acid Level Laboratory Tests Test 09/21/16 20:10 Lactic Acid Level 1.48 MMOL/L (0.50-2.00) Progress/Results/Core Measures Suspected Sepsis Recent Fever Within 48 Hours: No Infection Criteria Present: None New/Unexplained Altered Menta: No Sepsis Screen: No Definite Risk Sepsis Diagnosis: SIRS Temperature:97.7 Pulse: 99 Respiratory Rate: 18 Laboratory Tests 09/21/16 20:10: White Blood Count 9.7 Blood Pressure 127 /75 Mean: 92 Laboratory Tests 09/21/16 20:10: Creatinine 0.42L, Platelet Count 273, Total Bilirubin 0.4 Results/Orders Lab Results Laboratory Tests Test 09/21/16 20:10 Range/Units White Blood Count 9.7 4.3-11.0 10^3/uL Red Blood Count 4.75 4.35-5.85 10^6/uL Hemoglobin 14.5 11.5-16.0 G/DL Hematocrit 45 35-52 % Mean Corpuscular Volume 96 80-99 FL Mean Corpuscular Hemoglobin 31 25-34 PG Mean Corpuscular Hemoglobin Concent 32 32-36 G/DL Red Cell Distribution Width 14.1 10.0-14.5 % Platelet Count 273 130-400 10^3/uL Mean Platelet Volume 9.8 7.4-10.4 FL Neutrophils (%) (Auto) 56 42-75 % Lymphocytes (%) (Auto) 32 12-44 % Monocytes (%) (Auto) 10 0-12 % Eosinophils (%) (Auto) 2 0-10 % Basophils (%) (Auto) 0 0-10 % Neutrophils # (Auto) 5.4 1.8-7.8 X 10^3 Lymphocytes # (Auto) 3.1 1.0-4.0 X 10^3 Monocytes # (Auto) 0.9 0.0-1.0 X 10^3 Eosinophils # (Auto) 0.2 0.0-0.3 10^3/uL Basophils # (Auto) 0.0 0.0-0.1 10^3/uL Urine Color YELLOW Urine Clarity CLEAR Urine pH 6 5-9 Urine Specific [place] 1.020 1.016-1.022 Urine Protein 1+ H NEGATIVE Urine Glucose (UA) NEGATIVE NEGATIVE Urine Ketones NEGATIVE NEGATIVE Urine Nitrite POSITIVE H NEGATIVE Urine Bilirubin NEGATIVE NEGATIVE Urine Urobilinogen 1 NORMAL MG/DL Urine Leukocyte Esterase 3+ H NEGATIVE Urine RBC (Auto) 1+ H NEGATIVE Urine RBC 0-2 /HPF Urine WBC 50-100 H /HPF Urine Squamous Epithelial Cells 2-5 /HPF Urine Crystals NONE /LPF Urine Bacteria FEW H /HPF Urine Casts NONE /LPF Urine Mucus NEGATIVE /LPF Urine Culture Indicated YES Sodium Level 141 135-145 MMOL/L Potassium Level 4.0 3.6-5.0 MMOL/L Chloride Level 103 98-107 MMOL/L Carbon Dioxide Level 25 21-32 MMOL/L Anion Gap 13 5-14 MMOL/L Blood Urea Nitrogen 11 7-18 MG/DL Creatinine 0.42 L 0.60-1.30 MG/DL Estimat Glomerular Filtration Rate > 60 BUN/Creatinine Ratio 26 Glucose Level 90 70-105 MG/DL Lactic Acid Level 1.48 0.50-2.00 MMOL/L Calcium Level 10.0 8.5-10.1 MG/DL Total Bilirubin 0.4 0.1-1.0 MG/DL Aspartate Amino Transf (AST/SGOT) 38 H 5-34 U/L Alanine Aminotransferase (ALT/SGPT) 38 0-55 U/L Alkaline Phosphatase 58 40-136 U/L C-Reactive Protein High Sensitivity 1.38 H 0.00-0.50 MG/DL Total Protein 7.9 6.4-8.2 G/DL Albumin 4.3 3.2-4.5 G/DL My Orders Orders - SHIRLEY KIRKPATRICK MD Cbc With Automated Diff (09/21/16 19:53) Comprehensive Metabolic Panel (09/21/16 19:53) Hs C Reactive Protein (09/21/16 19:53) Lactic Acid Analyzer (09/21/16 19:53) Blood Culture (09/21/16 19:53) Saline Lock/Iv-Start (09/21/16 19:53) Ua Culture If Indicated (09/21/16 19:53) Urine Culture (09/21/16 20:10) Ceftriaxone Injection (Rocephin Injectio (09/21/16 20:45) Medications Given in ED Current Medications Medications Dose Ordered Sig/Bo Route Start Time Stop Time Status Last Admin Dose Admin Ceftriaxone Sodium 1000 mg/ Sodium Chloride 50 ml @ 100 mls/hr ONCE ONCE IV 09/21/16 20:45 09/21/16 21:14 DC 09/21/16 20:53 100 MLS/HR Vital Signs/I&O Vital Sign - Last 12Hours 09/21/16 19:15 Temp 97.7 Pulse 99 Resp 18 B/P (MAP) 127/75 Pulse Ox 99 O2 Delivery Room Air Capillary Refill : Less Than 3 Seconds Blood Pressure Mean: 92 Progress Note : Progress Note Seen and evaluated. IV, labs, UA, blood cultures and lactic acid ordered. I did discuss the case with Dr. Hilario at 6. Patient does have recent cultures at the clinic which show Escherichia coli infection that is sensitive to cephalosporins. Labs pending. We will evaluate for inpatient needs versus outpatient based on laboratory studies. 2114: Rocephin 1 g IV has been given for urinary tract infection noted on UA. Blood counts and markers okay currently. Blood cultures pending. We will initiate outpatient treatment with Ceftin ear. She will follow-up with her primary care doctor on . Discharged home with return precautions. Patient verbalize understanding instructions and agreement with plan. Departure Impression Impression: Primary Impression: Urinary tract infection Qualified Codes: N30.00 - Acute cystitis without hematuria Disposition: ADMITTED INPATIENT Condition: Stable Decision to Admit Reason: Admit from ER (General) Decision to Admit/Date: Sep 21, 2016 Time/Decision to Admit Time: 21:21 Departure-Patient Inst. Decision time for Depature: 21:21 Referrals: [facility] (PCP/Family) Primary Care Physician Patient Instructions: Urinary Tract Infection, Adult (DC) Add. Discharge Instructions: All discharge instructions reviewed with patient and/or family. Voiced understanding. Take medications as directed. Follow-up with your Dr. this week for recheck and further evaluation. Return for worse pain, fever, vomiting, weakness, breathing problems or other concerns as needed. Scripts Ondansetron (Ondansetron Odt) 4 Mg Tab.rapdis 4 MG PO Q6H Y for NAUSEA/VOMITING, #20 TAB 0 Refills Prov: SHIRLEY KIRKPATRICK MD 09/21/16 Cefdinir (Cefdinir) 300 Mg Capsule 300 MG PO BID, #14 CAP 0 Refills Prov: SHIRLEY KIRKPATRICK MD 09/21/16 Copy Copies To 1: JENNIFER HILARIO MD, TIMOTHY D MD Sep 21, 2016 19:59
[2016-09-21 20:24] LABS: BASOPHILS % (AUTO) 0 % (0-10); BILIRUBIN,URINE NEGATIVE (NEGATIVE); EOSINOPHILS # (AUTO) 0.2 10^3/uL (0.0-0.3); EOSINOPHILS % (AUTO) 2 % (0-10); KETONES,URINE NEGATIVE (NEGATIVE); LEUKOCYTE ESTERASE ,URINE 3+ (NEGATIVE); LYMPHOCYTES # (AUTO) 3.1 X 10^3 (1.0-4.0); LYMPHOCYTES % (AUTO) 32 % (12-44); MEAN CORPUSCULAR HEMOGLOBIN 31 PG (25-34); MEAN CORPUSCULAR HGB CONC 32 G/DL (32-36); MEAN CORPUSCULAR VOLUME 96 FL (80-99); MEAN PLATELET VOLUME 9.8 FL (7.4-10.4); MONOCYTES # (AUTO) 0.9 X 10^3 (0.0-1.0); MONOCYTES % (AUTO) 10 % (0-12); NEUTROPHILS # (AUTO) 5.4 X 10^3 (1.8-7.8); NEUTROPHILS % (AUTO) 56 % (42-75); NITRITE,URINE POSITIVE (NEGATIVE); PH,URINE 6 (5-9); PLATELET COUNT 273 10^3/uL (130-400); PROTEIN,URINE 1+ (NEGATIVE); RED BLOOD COUNT 4.75 10^6/uL (4.35-5.85); RED CELL DISTRIBUTION WIDTH 14.1 % (10.0-14.5); UROBILINOGEN,URINE 1 MG/DL (NORMAL); WHITE BLOOD COUNT 9.7 10^3/uL (4.3-11.0)
[2016-09-21 20:32] LABS: WBC,URINE 50-100 /HPF
[2016-09-21 20:40] LABS: ALANINE AMINOTRANSFERASE 38 U/L (0-55); ALBUMIN 4.3 G/DL (3.2-4.5); ANION GAP 13 MMOL/L (5-14); ASPARTATE AMINO TRANSFERASE 38 U/L (5-34); BILIRUBIN,TOTAL 0.4 MG/DL (0.1-1.0); BLOOD UREA NITROGEN 11 MG/DL (7-18); BUN/CREATININE RATIO 26; CARBON DIOXIDE 25 MMOL/L (21-32); CHLORIDE 103 MMOL/L (98-107); CREATININE SERUM 0.42 MG/DL (0.60-1.30); GFR ESTIMATED > 60; GLUCOSE 90 MG/DL (70-105); SODIUM 141 MMOL/L (135-145); TOTAL PROTEIN 7.9 G/DL (6.4-8.2); hs C REACTIVE PROTEIN 1.38 MG/DL (0.00-0.50)
[2016-09-21] MEDS ORDERED: cefTRIAXone INJECTION 1,000 MG in NS (IVPB) 50 ML IV ONE (20:45)
[2016-09-21] MEDS ORDERED: CEFD300C3 PO (21:25)
[2016-09-21] MEDS ORDERED: ONDA4TAB11 PO (21:25)
[2016-09-21 21:35] VITALS: BP 125/62
== END 2016-09-21 21:35 | disposition other institution (70) ==
LOC: EDUNIT# 18:49 → ER 18:50
DX: N39.0 Urinary tract infection, site not specified (principal); E11.9 Type 2 diabetes mellitus without complications; F17.210 Nicotine dependence, cigarettes, uncomplicated; Z87.442 Personal history of urinary calculi; Z79.84 Long term (current) use of oral hypoglycemic drugs
CPT/HCPCS: 36415; 80053; 81000; 83605; 85025; 86141; 87040; 87077; 87088

== ENCOUNTER 2016-09-30 15:53 | Outpatient (RCR) | payer MEDICAID ==
[2016-09-24 14:37] VITALS: BP_SYST 128; BP_SYST 96; BP_DIAS 58; BP_DIAS 80
[2016-09-24] MEDS: CATHETER FLUSH 10 ML SYR IV PRN (16:25)
[2016-09-24 17:25] VITALS: BP 96/58
[2016-09-25 15:09] LABS: ANION GAP 10 MMOL/L (5-14); BLOOD UREA NITROGEN 9 MG/DL (7-18); BUN/CREATININE RATIO 23 (0-20); CALCIUM 9.5 MG/DL (8.5-10.1); CARBON DIOXIDE 26 MMOL/L (21-32); CHLORIDE 104 MMOL/L (98-107); GFR ESTIMATED > 60; GLUCOSE 91 MG/DL (70-105); HEMOLYSIS 12 (0-29); ICTERUS 0.3 (0-1.9); LIPEMIA 4 (0-49); POTASSIUM 4.2 MMOL/L (3.6-5.0); SODIUM 140 MMOL/L (135-145)
[2016-09-25 15:34] VITALS: BP 149/94
[2016-09-25 16:32] VITALS: BP 149/94
[2016-09-26] MEDS: NS IV SCH (15:02)
[2016-09-26] MEDS: GENTAMICIN IV SCH (15:02)
[2016-09-26] MEDS: CATHETER FLUSH 10 ML SYR IV PRN (16:02)
[2016-09-26 16:10] VITALS: BP 110/72
[2016-09-27 15:15] VITALS: BP 106/53
[2016-09-27] MEDS: GENTAMICIN IV SCH (15:28)
[2016-09-27] MEDS: NS IV SCH (15:28)
[2016-09-27] MEDS: CATHETER FLUSH 10 ML SYR IV PRN (15:29)
[2016-09-27 16:37] VITALS: BP 106/53
[2016-09-28 16:00] VITALS: BP 136/63
[2016-09-28] MEDS: GENTAMICIN IV SCH (16:14)
[2016-09-28] MEDS: NS IV SCH (16:14)
[2016-09-29] MEDS: CATHETER FLUSH 10 ML SYR IV PRN (14:50)
[2016-09-29] MEDS: GENTAMICIN IV SCH (15:48)
[2016-09-29] MEDS: NS IV SCH (15:48)
[2016-09-29 15:58] VITALS: BP 88/55
[2016-09-29 16:55] VITALS: BP 88/55
[~2016-09-30] VITALS: Ht 154.9 cm; Wt 59.0 kg
[2016-09-30 15:53] VITALS: BP 0/0
[~2016-09-30 15:53] MED LIST changes: +AMOX1TAB11; +CEFD300C3 PO; +GENTAMICIN IV SCH; +NS IV SCH; +ONDA4TAB11 PO; +TROUGH ORDER-PHARMACY XX NR; +VANCOMYCIN 1 GM/NS 250 ML IVPB IV SCH; +VANCOMYCIN 1250 MG/NS 250 ML IVPB IV NR; +[UNRECOGNIZED DRUG - REMARK] XX NR
[2016-10-17] MEDS ORDERED: DIPH1TAB25 (22:45)
[2016-12-24] MEDS ORDERED: CEPH-507 PO (02:12)
== END 2016-12-23 | disposition home or self-care (01) ==
LOC: SDC 15:53
PROVIDERS: ATTEND Nurse Practitioner Community Health
DX: N39.0 Urinary tract infection, site not specified (principal)
CPT/HCPCS: 36415; 36569; 36592; 76937; 80048; 80170; 96365

== ENCOUNTER 2016-10-17 21:53 | Emergency (ER) | payer MEDICAID ==
[~2016-10-17] VITALS: Ht 154.9 cm; Wt 59.0 kg
[~2016-10-17 21:53] MED LIST changes: -GENTAMICIN IV SCH; -NS IV SCH; -TROUGH ORDER-PHARMACY XX NR; -VANCOMYCIN 1 GM/NS 250 ML IVPB IV SCH; -VANCOMYCIN 1250 MG/NS 250 ML IVPB IV NR; -[UNRECOGNIZED DRUG - REMARK] XX NR
--- NOTE | 2016-10-17 22:19 | ED Cardiac General ---
History of Present Illness General Chief Complaint: Chest Pain Stated Complaint: CHEST PAINS Source: patient, caregiver Exam Limitations: no limitations History of Present Illness Time seen by provider: 22:10 Initial Comments Patient was [place] to [place] [employer] with some friends and she started feeling some weird palpitations in her chest and twinges. She has no history of heart history. She does not have hypertension. She does not have thyroid disorder. She's never had a cardiac workup or heart history. She denies chest pain nausea. She does have some chills and feel a little sweaty. She says recently she was diagnosed with a UTI and she has a indwelling catheter since 2007. She says Derrell at [facility] told her it was Escherichia coli and put her on Augmentin because of her allergies to sulfa and Macrobid. She stopped taking the Augmentin 2 days ago after a vomiting you for about a day secondary to development of diarrhea. Today he sent out Imodium for her but she has not restarted the antibiotics yet. She is taking probiotics once daily at night. She had some chest discomfort earlier in the night she was out to eat but none since then. Allergies and Home Medications Allergies Coded Allergies: Sulfa (Sulfonamide Antibiotics) (Unverified Allergy, Mild, 07/29/08) Iodinated Contrast Media - Oral and (Verified Allergy, Unknown, 07/30/08) latex (Verified Allergy, Unknown, 07/30/08) povidone-iodine (Unverified Allergy, Unknown, 08/28/13) soap (Unverified Allergy, Unknown, 08/28/13) Uncoded Allergies: CONTRAST DYE (Allergy, Mild, 07/29/08) EES (Allergy, Mild, 07/29/08) Home Medications Alprazolam 0.5 Mg Tablet, 0.5 MG PO TID PRN for ANXIETY, (Reported) Amoxicillin/Potassium Clav 1 Each Tablet, #30 (Reported) Cranberry Conc/Ascorbic Acid 1 Each Capsule, 1 CAP PO DAILY, (Reported) Diphenoxylate HCl/Atropine 1 Each Tablet, #60 (Reported) Fluticasone Propionate 16 Gm [place].susp, 1 SPRAY NS DAILY, (Reported) L.acidoph & Paracasei,B.lactis 1 Each Capsule, 1 CAP PO DAILY, (Reported) Lactulose 20 Gm/30 Ml Solution, 30 GM PO QID, #8 Prescribed by: SHORTY HUERTA on 05/20/16 1107 Metformin Hcl 850 Mg Tablet, 850 MG PO TIDAC, (Reported) Multivitamins 1 Tab Tablet, 1 TAB PO DAILY, (Reported) Ondansetron 4 Mg Tab.rapdis, 4 MG PO Q6H PRN for NAUSEA/VOMITING, #20 Ref 0 Prescribed by: SHIRLEY KIRKPATRICK on 09/21/162124 Oxycodone HCl 10 Mg Tablet, 10 MG PO Q6H PRN for SEVERE PAIN, (Reported) Polyethylene Glycol 3350 119 Gm Powder, 119 GM PO TID, #8 Prescribed by: SHORTY HUERTA on 05/20/16 1107 Review of Systems Constitutional: No chills, No diaphoresis, No fever, malaise EENTM: No Eye Pain, No Ear Pain Respiratory: Denies Cough, Denies Shortness of Air Cardiovascular: See HPI, Denies Edema, Lightheadedness, Palpitations, Denies Syncope Gastrointestinal: Denies Abdomen Distended, Denies Abdominal Pain, Denies Constipated, Denies Diarrhea, Denies Nausea Genitourinary: Denies Drainage, Denies Pain Musculoskeletal: No back pain, No joint pain Skin: No dryness, No pruritus, No rash Psychiatric/Neurological: Denies Headache, Denies Numbness Past Uiqjnmz-Ifcznw-Bkhhys Hx Patient Social History Type Used: Cigarettes 2nd Hand Smoke Exposure: Yes Recent Foreign Travel: No Contact w/Someone Who Travel: No Recent Hopitalizations: No Immunizations Up To Date Tetanus Booster (TDap): Unknown Date of Pneumonia Vaccine: Feb 28, 2011 Date of Influenza Vaccine: Mar 02, 2016 Seasonal Allergies Seasonal Allergies: Yes Surgeries HX Surgeries: Yes (HEEL CORD LENGTHENING, SPINAL FUSION, ischial tuberocity wound) Surgeries: Gallbladder, Orthopedic Respiratory Hx Respiratory Disorders: Yes Respiratory Disorders: Pneumonia Cardiovascular Hx Cardiac Disorders: No Neurological Hx Neurological Disorders: Yes ([id number], NON-AMBULATORY) Reproductive System Hx Reproductive Disorders: Yes 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 Genitourinary Hx Genitourinary Disorders: Yes (INDWELLING LANDRUM SINCE 2008) Genitourinary Disorders: Kidney Stones, Neurogenic Bladder, UTI-Chronic Gastrointestinal Hx Gastrointestinal Disorders: Yes (AGE 14) Gastrointestinal Disorders: Colitis, Ulcer Musculoskeletal Hx Musculoskeletal Disorders: Yes ([id number] AND IS NON-AMBULATORY) Endocrine Hx Endocrine Disorders: Yes Endocrine Disorders: Diabetes, Non-Insulin dep HEENT HX ENT Disorders: No Loss of Vision: Denies Hearing Impairment: Denies Cancer Hx Cancer: No Psychosocial Hx Psychiatric Problems: Yes Behavioral Health Disorders: Anxiety Integumentary HX Skin/Integumentary Disorder: Yes (CHRONIC SACRAL DECUB ULCER SINCE 2008) Blood Transfusions Hx Blood Disorders: No Adverse Reaction to a Blood Tr: No Family Medical History Family Medial History: FH: breast cancer 19 MOTHER, Onset:Unknown FH: pneumonia 19 FATHER, Onset:60 years & older Gout 19 FATHER, Onset:Unknown Hypertension 19 FATHER, Onset:Unknown Physical Exam Vital Signs Vital Sign - Last 12Hours 10/17/16 21:54 Temp 98.6 Pulse 98 Resp 22 B/P (MAP) 150/76 Pulse Ox 92 O2 Delivery Room Air Capillary Refill : General Appearance: No Apparent Distress HEENT: PERRL/EOMI, Pharynx Normal Neck: Full Range of Motion, Supple Respiratory: Chest Non Tender, Lungs Clear, Normal Breath Sounds, No Accessory Muscle Use, No Respiratory Distress Cardiovascular: Regular Rate, Rhythm, No Edema, No JVD, No Murmur, Normal Peripheral Pulses Gastrointestinal: Normal Bowel Sounds, Non Tender, Soft Extremity: Normal Capillary Refill, Non Tender, No Pedal Edema Neurologic/Psychiatric: Alert, Oriented x3 Skin: Normal Color, Warm/Dry Lymphatic: No Adenopathy Progress/Results/Core Measures Results/Orders Lab Results Laboratory Tests Test 10/17/16 22:19 10/17/16 23:20 10/18/16 00:18 Range/Units White Blood Count 9.7 4.3-11.0 10^3/uL Red Blood Count 4.79 4.35-5.85 10^6/uL Hemoglobin 14.4 11.5-16.0 G/DL Hematocrit 46 35-52 % Mean Corpuscular Volume 96 80-99 FL Mean Corpuscular Hemoglobin 30 25-34 PG Mean Corpuscular Hemoglobin Concent 31 L 32-36 G/DL Red Cell Distribution Width 14.1 10.0-14.5 % Platelet Count 284 130-400 10^3/uL Mean Platelet Volume 9.4 7.4-10.4 FL Neutrophils (%) (Auto) 53 42-75 % Lymphocytes (%) (Auto) 35 12-44 % Monocytes (%) (Auto) 9 0-12 % Eosinophils (%) (Auto) 2 0-10 % Basophils (%) (Auto) 0 0-10 % Neutrophils # (Auto) 5.1 1.8-7.8 X 10^3 Lymphocytes # (Auto) 3.4 1.0-4.0 X 10^3 Monocytes # (Auto) 0.9 0.0-1.0 X 10^3 Eosinophils # (Auto) 0.2 0.0-0.3 10^3/uL Basophils # (Auto) 0.0 0.0-0.1 10^3/uL Prothrombin Time 12.8 12.2-14.7 SEC INR Comment 1.0 0.8-1.4 Activated Partial Thromboplast Time 28 24-35 SEC Sodium Level 142 135-145 MMOL/L Potassium Level 4.3 3.6-5.0 MMOL/L Chloride Level 102 98-107 MMOL/L Carbon Dioxide Level 24 21-32 MMOL/L Anion Gap 16 H 5-14 MMOL/L Blood Urea Nitrogen 10 7-18 MG/DL Creatinine 0.57 L 0.60-1.30 MG/DL Estimat Glomerular Filtration Rate > 60 BUN/Creatinine Ratio 18 Glucose Level 162 H 70-105 MG/DL Calcium Level 9.9 8.5-10.1 MG/DL Magnesium Level 2.4 1.8-2.4 MG/DL Total Bilirubin 0.4 0.1-1.0 MG/DL Aspartate Amino Transf (AST/SGOT) 32 5-34 U/L Alanine Aminotransferase (ALT/SGPT) 30 0-55 U/L Alkaline Phosphatase 70 40-136 U/L Myoglobin 22.9 10.0-92.0 NG/ML Troponin I < 0.30 < 0.30 <0.30 NG/ML Total Protein 7.9 6.4-8.2 GM/DL Albumin 4.4 3.2-4.5 GM/DL Urine Color YELLOW Urine Clarity SLIGHTLY CLOUDY Urine pH 6.5 5-9 Urine Specific [place] 1.010 L 1.016-1.022 Urine Protein 1+ H NEGATIVE Urine Glucose (UA) NEGATIVE NEGATIVE Urine Ketones NEGATIVE NEGATIVE Urine Nitrite POSITIVE H NEGATIVE Urine Bilirubin NEGATIVE NEGATIVE Urine Urobilinogen NORMAL NORMAL MG/DL Urine Leukocyte Esterase 3+ H NEGATIVE Urine RBC (Auto) 1+ H NEGATIVE Urine RBC NONE /HPF Urine WBC 25-50 H /HPF Urine Squamous Epithelial Cells 5-10 /HPF Urine Crystals NONE /LPF Urine Bacteria LARGE H /HPF Urine Casts NONE /LPF Urine Mucus NEGATIVE /LPF Urine Culture Indicated YES My Orders Orders - RAFIBEST Cbc With Automated Diff (10/17/16 22:19) Magnesium (10/17/16 22:19) Chest 1 View, Ap/Pa Only (10/17/16 22:19) Ekg Tracing (10/17/16 22:19) Cardiac Profile 1 (10/17/16 22:19) Comprehensive Metabolic Panel (10/17/16 22:19) Myoglobin Serum (10/17/16 22:19) Protime With Inr (10/17/16 22:) Partial Thromboplastin Time (10/17/16 22:19) O2 (10/17/16 22:19) Monitor-Rhythm Ecg Trace Only (10/17/16 22:19) Lipid Panel (10/18/16 06:00) Aspirin Chewable Tablet (Baby Aspirin Ch (10/17/16 22:30) Saline Lock/Iv-Start (10/17/16 22:19) Ua Culture If Indicated (10/17/16 23:00) Troponin I (10/18/16 00:30) Urine Culture (10/17/16 23:20) Medications Given in ED Current Medications Medications Dose Ordered Sig/Bo Route Start Time Stop Time Status Last Admin Dose Admin Aspirin 324 mg ONCE ONCE PO 10/17/16 22:30 10/17/16 22:31 DC 10/17/16 22:24 324 MG Vital Signs/I&O Vital Sign - Last 12Hours 10/17/16 10/17/16 21:54 21:54 Temp 98.6 Pulse 98 Resp 22 B/P (MAP) 150/76 Pulse Ox 92 O2 Delivery Room Air Room Air Progress Note : Time: 23:01 Progress Note Initial troponin and EKG were unremarkable. Patient's chest x-ray is stable in appearance as far as acute cardiopulmonary problems only chronic findings. Waiting on UA and will do a delta two-hour troponin rule out. Patient reports at this time she feels better and all of her symptoms have subsided. Departure Impression Impression: Primary Impression: UTI (urinary tract infection) Qualified Codes: N30.01 - Acute cystitis with hematuria Disposition: HOME, SELF-CARE Condition: Improved Departure-Patient Inst. Decision time for Depature: 01:20 Referrals: [facility] (PCP/Family) Primary Care Physician Patient Instructions: Chest Pain That Is Not Caused by the Heart (DC) Add. Discharge Instructions: We've ruled out tonight that anything dangerous is going on with your heart. However you do still have a strong evidence for a UTI. Since you have a culture managed by Derrell at [facility] that indicated Augmentin was a good choice I would encourage to get back on your Augmentin, double up on your probiotics, you can also eat yogurt with active culture and use the Imodium if you started having loose stools. If you started having new or worsening symptoms such as fever or nausea and vomiting this uncontrollable you should return to the ER. Otherwise he should follow-up with her primary care physician. All discharge instructions reviewed with patient and/or family. Voiced understanding. Copy Copies To 1: GILBERTO PRICE TITUS J Oct 17, 2016 22:19
[2016-10-17 22:25] LABS: BASOPHILS % (AUTO) 0 % (0-10); EOSINOPHILS # (AUTO) 0.2 10^3/uL (0.0-0.3); EOSINOPHILS % (AUTO) 2 % (0-10); LYMPHOCYTES # (AUTO) 3.4 X 10^3 (1.0-4.0); LYMPHOCYTES % (AUTO) 35 % (12-44); MEAN CORPUSCULAR HEMOGLOBIN 30 PG (25-34); MEAN CORPUSCULAR HGB CONC 31 G/DL (32-36); MEAN CORPUSCULAR VOLUME 96 FL (80-99); MEAN PLATELET VOLUME 9.4 FL (7.4-10.4); MONOCYTES # (AUTO) 0.9 X 10^3 (0.0-1.0); MONOCYTES % (AUTO) 9 % (0-12); NEUTROPHILS # (AUTO) 5.1 X 10^3 (1.8-7.8); NEUTROPHILS % (AUTO) 53 % (42-75); PLATELET COUNT 284 10^3/uL (130-400); RED BLOOD COUNT 4.79 10^6/uL (4.35-5.85); RED CELL DISTRIBUTION WIDTH 14.1 % (10.0-14.5); WHITE BLOOD COUNT 9.7 10^3/uL (4.3-11.0)
[2016-10-17] MEDS ORDERED: ASPIRIN 81 MG CHEW (CHILDREN'S ASA) PO ONE (22:30)
[2016-10-17 22:35] LABS: PROTHROMBIN TIME PATIENT 12.8 SEC (12.2-14.7)
[2016-10-17 22:43] LABS: ALANINE AMINOTRANSFERASE 30 U/L (0-55); ALBUMIN 4.4 GM/DL (3.2-4.5); ANION GAP 16 MMOL/L (5-14); ASPARTATE AMINO TRANSFERASE 32 U/L (5-34); BILIRUBIN,TOTAL 0.4 MG/DL (0.1-1.0); BLOOD UREA NITROGEN 10 MG/DL (7-18); BUN/CREATININE RATIO 18; CALCIUM 9.9 MG/DL (8.5-10.1); CARBON DIOXIDE 24 MMOL/L (21-32); CHLORIDE 102 MMOL/L (98-107); CREATININE SERUM 0.57 MG/DL (0.60-1.30); GFR ESTIMATED > 60; GLUCOSE 162 MG/DL (70-105); MAGNESIUM 2.4 MG/DL (1.8-2.4); POTASSIUM 4.3 MMOL/L (3.6-5.0); SODIUM 142 MMOL/L (135-145); TOTAL PROTEIN 7.9 GM/DL (6.4-8.2)
[2016-10-17] MEDS ORDERED: DIPH1TAB25 (22:45)
[2016-10-17 22:50] LABS: MYOGLOBIN SERUM 22.9 NG/ML (10.0-92.0)
[2016-10-17 23:26] LABS: BILIRUBIN,URINE NEGATIVE (NEGATIVE); KETONES,URINE NEGATIVE (NEGATIVE); LEUKOCYTE ESTERASE ,URINE 3+ (NEGATIVE); NITRITE,URINE POSITIVE (NEGATIVE); PH,URINE 6.5 (5-9); PROTEIN,URINE 1+ (NEGATIVE); UROBILINOGEN,URINE NORMAL (NORMAL)
[2016-10-17 23:36] LABS: WBC,URINE 25-50 /HPF
[2016-10-18 01:50] VITALS: BP 150/76
--- NOTE | 2016-10-18 08:34 | Diagnostic Imaging Report ---
INDICATION: Chest pain. COMPARISON: Comparison is made with the prior examination dated 02/04/2016. FINDINGS: There is cardiomegaly. The lungs are clear. There is no pleural effusion or pneumothorax. Mediastinum is unremarkable. IMPRESSION: No acute cardiopulmonary abnormality. Cardiomegaly. Dictated by: Dictated on workstation # [id number]
--- OUTSIDE RECORDS SUMMARY | 2016-10-21 08:19 | XMS REPORT | Continuity of Care Document ---
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 If you do not see the information that you expected, contact Release of Information in the Health Information Management department at [phone] for further assistance in locating additional records.[facility] Active Allergies and Adverse Reactions Allergen [...] Taken Blood Pressure 114/70 03/31/2009 6:00 AM FIRST LEVELER Pulse 80 03/31/2009 6:00 AM FIRST LEVELER Temperature 36.6 C (97.9 F) 03/31/2009 6:00 AM FIRST LEVELER Respiratory Rate - - Height 1.549 m (5' 1") 03/23/2009 3:00 PM FIRST LEVELER Weight 68.1 kg (150 lb 2.1 oz) 03/23/2009 3:00 PM FIRST LEVELER Body Mass Index 28.38 03/23/2009 3:00 PM FIRST LEVELER Oxygen Saturation 95% 03/31/2009 6:00 AM FIRST LEVELER Plan of Care Health Maintenance Due Date Last Done Comments Hepatitis C Screening 1958 Physical (Comprehensive) 1965 Exam Pertussis Vaccine 1969 Tetanus Vaccine 11/03/1975 Cervical Cancer Screening 11/03/1979 Breast Cancer Screening 1998 Colorectal Cancer 2008 Screening Influenza Vaccine 12/12/2016 Results from Last 3 Months Not on file
--- OUTSIDE RECORDS SUMMARY | 2016-10-21 08:31 | XMS REPORT | Continuity of Care Document ---
Author Author [facility] of [facility] Address Unknown Phone Unavailable Allergies Active Description Code Type Severity Reaction Onset Reported/Identified Relationship to Patient Clinical Status Yes CONTRAST DYE CONTRAST DYE Mild N/A 07/29/2008 Yes EES EES Mild N/A 07/29/2008 Yes Sulfa (Sulfonamide Antibiotics) [id number] Drug Allergy Mild N/A 07/29/2008 Yes Iodinated Contrast Media - IV Dye [id number] Drug Allergy Unknown N/A 07/30/2008 Yes Iodinated Contrast Media - Oral and [id number] Drug Allergy Unknown N/A 07/30/2008 Yes Iodinated Contrast- Oral and IV Dye [id number] Drug Allergy Unknown N/A 07/30/2008 Yes latex [id number] Drug Allergy Unknown N/A 07/30/[address] dye OA N/A N/A 06/03/2010 Yes erythromycin Drug Allergy N/A N/A 06/03/[address] dye OA Yes erythromycin Drug Allergy 06/03/2010 Yes sulfa drug Drug Allergy 06/03/2010 Yes Macrobid Drug Allergy N/A N/A 07/02/2010 Yes Macrobid Drug Allergy 07/02/2010 Yes voriconazole Drug Allergy N/A N/A 10/09/2010 Yes voriconazole Drug Allergy 10/09/2010 Yes Bactrim DS 800-160 mg tablet Drug Allergy N/A N/A 04/19/2012 Yes Bactrim DS 800-160 mg tablet Drug Allergy 04/19/2012 Yes povidone-iodine [id number] Drug Allergy Unknown N/A 08/28/2013 Yes Soap [id number] Drug Allergy Unknown N/A 08/28/2013 Medications Problems Date Dx Coded Attending Type Code Diagnosis Diagnosed By 02/08/2009 Ot 250.00 02/08/2009 Ot 707.00 02/08/2009 Ot 707.20 05/10/2009 Ot 707.00 05/10/2009 Ot 707.20 06/27/2009 Ot 625.9 06/27/2009 Ot 626.0 08/12/2009 Ot 707.00 08/12/2009 Ot 707.20 11/11/2009 Ot 707.00 11/11/2009 Ot 707.20 12/17/2009 Ot V53.6 02/10/2010 Ot 707.00 02/10/2010 Ot 707.20 02/26/2010 Ot 787.91 05/12/2010 Ot 707.00 05/12/2010 Ot 707.20 06/03/2010 DWAINE BENITO APRN 250.00 DIABETES MELLITUS TYPE 2 06/03/2010 DWAINE BENITO APRN 356.1 PERONEAL MUSCULAR ATROPHY 06/03/2010 DWAINE BENITO APRN 780.79 FATIGUE 06/03/2010 NEIDA TALBOT MD 250.00 DIABETES MELLITUS TYPE 2 06/03/2010 NEIDA TALBOT MD 356.1 PERONEAL MUSCULAR ATROPHY 06/03/2010 NEIDA TALBOT MD 780.79 FATIGUE 06/03/2010 250.00 DIABETES MELLITUS TYPE 2 06/03/2010 356.1 PERONEAL MUSCULAR ATROPHY 06/03/2010 780.79 FATIGUE 06/03/2010 GILBERTO PRICE DO K 250.00 DIABETES MELLITUS TYPE 2 06/03/2010 GILBERTO PRICE DO K 356.1 PERONEAL MUSCULAR ATROPHY 06/03/2010 GILBERTO PRICE DO K 780.79 FATIGUE 06/03/2010 DWAINE BENITO APRN 250.00 DIABETES MELLITUS TYPE 2 06/03/2010 DWAINE BENITO APRN 356.1 PERONEAL MUSCULAR ATROPHY 06/03/2010 DWAINE BENITO APRN 780.79 FATIGUE 06/03/2010 250.00 DIABETES MELLITUS TYPE 2 06/03/2010 356.1 PERONEAL MUSCULAR ATROPHY 06/03/2010 780.79 FATIGUE 06/03/2010 250.00 DIABETES MELLITUS TYPE 2 06/03/2010 356.1 PERONEAL MUSCULAR ATROPHY 06/03/2010 780.79 FATIGUE 06/03/2010 DWAINE BENITO APRN 250.00 DIABETES MELLITUS TYPE 2 06/03/2010 DWAINE BENITO APRN 356.1 PERONEAL MUSCULAR ATROPHY 06/03/2010 DWAINE BENITO APRN 780.79 FATIGUE 06/03/2010 250.00 DIABETES MELLITUS TYPE 2 06/03/2010 356.1 PERONEAL MUSCULAR ATROPHY 06/03/2010 780.79 FATIGUE 06/03/2010 250.00 DIABETES MELLITUS TYPE 2 06/03/2010 356.1 PERONEAL MUSCULAR ATROPHY 06/03/2010 780.79 FATIGUE 06/03/2010 DWAINE BENITO APRN 250.00 DIABETES MELLITUS TYPE 2 06/03/2010 DWAINE BENITO APRN 356.1 PERONEAL MUSCULAR ATROPHY 06/03/2010 DWAINE BENITO APRN 780.79 FATIGUE 06/03/2010 250.00 DIABETES MELLITUS TYPE 2 06/03/2010 356.1 PERONEAL MUSCULAR ATROPHY 06/03/2010 780.79 FATIGUE 06/03/2010 250.00 DIABETES MELLITUS TYPE 2 06/03/2010 356.1 PERONEAL MUSCULAR ATROPHY 06/03/2010 780.79 FATIGUE 06/03/2010 250.00 DIABETES MELLITUS TYPE 2 06/03/2010 356.1 PERONEAL MUSCULAR ATROPHY 06/03/2010 780.79 FATIGUE 06/03/2010 250.00 DIABETES MELLITUS TYPE 2 06/03/2010 356.1 PERONEAL MUSCULAR ATROPHY 06/03/2010 780.79 FATIGUE 06/03/2010 250.00 DIABETES MELLITUS TYPE 2 06/03/2010 356.1 PERONEAL MUSCULAR ATROPHY 06/03/2010 780.79 FATIGUE 06/03/2010 250.00 DIABETES MELLITUS TYPE 2 06/03/2010 356.1 PERONEAL MUSCULAR ATROPHY 06/03/2010 780.79 FATIGUE 06/03/2010 250.00 DIABETES MELLITUS TYPE 2 06/03/2010 356.1 PERONEAL MUSCULAR ATROPHY 06/03/2010 780.79 FATIGUE 06/03/2010 250.00 DIABETES MELLITUS TYPE 2 06/03/2010 356.1 PERONEAL MUSCULAR ATROPHY 06/03/2010 780.79 FATIGUE 06/03/2010 250.00 DIABETES MELLITUS TYPE 2 06/03/2010 356.1 PERONEAL MUSCULAR ATROPHY 06/03/2010 780.79 FATIGUE 06/03/2010 250.00 DIABETES MELLITUS TYPE 2 06/03/2010 356.1 PERONEAL MUSCULAR ATROPHY 06/03/2010 780.79 FATIGUE 06/03/2010 250.00 DIABETES MELLITUS TYPE 2 06/03/2010 356.1 PERONEAL MUSCULAR ATROPHY 06/03/2010 780.79 FATIGUE 06/03/2010 DWAINE BENITO APRN 250.00 DIABETES MELLITUS TYPE 2 06/03/2010 THONG HODGES, DWAINE T 356.1 PERONEAL MUSCULAR ATROPHY 06/03/2010 THONG HODGES DWAINE T 780.79 FATIGUE 06/03/2010 THONG HODGES, DWAINE T 250.00 DIABETES MELLITUS TYPE 2 06/03/2010 THONG HODGES, DWAINE T 356.1 PERONEAL MUSCULAR ATROPHY 06/03/2010 THONG HODGES DWAINE T 780.79 FATIGUE 06/03/2010 NEIDA TALBOT MD 250.00 DIABETES MELLITUS TYPE 2 06/03/2010 NEIDA TALBOT MD 356.1 PERONEAL MUSCULAR ATROPHY 06/03/2010 NEIDA TALBOT MD 780.79 FATIGUE 06/03/2010 DWAINE BENITO APRN T 250.00 DIABETES MELLITUS TYPE 2 06/03/2010 DWAINE BENITO APRN T 356.1 PERONEAL MUSCULAR ATROPHY 06/03/2010 THONG HODGES DWAINE T 780.79 FATIGUE 06/03/2010 NEIDA TALBOT MD 250.00 DIABETES MELLITUS TYPE 2 06/03/2010 NEIDA TALBOT MD 356.1 PERONEAL MUSCULAR ATROPHY 06/03/2010 NEIDA TALBOT MD 780.79 FATIGUE 06/03/2010 THONG HODGES DWAINE T 250.00 DIABETES MELLITUS TYPE 2 06/03/2010 THONG HODGES DWAINE T 356.1 PERONEAL MUSCULAR ATROPHY 06/03/2010 THONG HODGES DWAINE T 780.79 FATIGUE 06/03/2010 NEIDA TALBOT MD 250.00 DIABETES MELLITUS TYPE 2 06/03/2010 NEIDA TALBOT MD 356.1 PERONEAL MUSCULAR ATROPHY 06/03/2010 NEIDA TALBOT MD 780.79 FATIGUE 06/03/2010 THONG HODGES DWAINE T 250.00 DIABETES MELLITUS TYPE 2 06/03/2010 THONG HODGES DWAINE T 356.1 PERONEAL MUSCULAR ATROPHY 06/03/2010 THONG HODGES DWAINE T 780.79 FATIGUE 06/03/2010 THONG HODGES DWAINE T 250.00 DIABETES MELLITUS TYPE 2 06/03/2010 THONG HODGES DWAINE T 356.1 PERONEAL MUSCULAR ATROPHY 06/03/2010 THONG HODGES DWAINE T 780.79 FATIGUE 06/03/2010 THONG HODGES DWAINE T 250.00 DIABETES MELLITUS TYPE 2 06/03/2010 THONG HODGES DWAINE T 356.1 PERONEAL MUSCULAR ATROPHY 06/03/2010 THONG HODGES DWAINE T 780.79 FATIGUE 06/03/2010 THONG BUSINESS OPERATIONS MANAGER, DWAINE T 250.00 DIABETES MELLITUS TYPE 2 06/03/2010 THONG BUSINESS OPERATIONS MANAGER, DWAINE T 356.1 PERONEAL MUSCULAR ATROPHY 06/03/2010 THONG SAAVEDRAN, DWAINE T 780.79 FATIGUE 06/03/2010 THONG BUSINESS OPERATIONS MANAGER, DWAINE T 250.00 DIABETES MELLITUS TYPE 2 06/03/2010 THONG SAAVEDRAN, DWAINE T 356.1 PERONEAL MUSCULAR ATROPHY 06/03/2010 THONG SAAVEDRAN, DWAINE T 780.79 FATIGUE 06/03/2010 THONG SAAVEDRAN, DWAINE T 250.00 DIABETES MELLITUS TYPE 2 06/03/2010 THONG SAAVEDRAN, DWAINE T 356.1 PERONEAL MUSCULAR ATROPHY 06/03/2010 THONG SAAVEDRAN, DWAINE T 780.79 FATIGUE 06/03/2010 THONG SAAVEDRAN, DWAINE T 250.00 DIABETES MELLITUS TYPE 2 06/03/2010 THONG SAAVEDRAN, DWAINE T 356.1 PERONEAL MUSCULAR ATROPHY 06/03/2010 THONG HODGES, DWAINE T 780.79 FATIGUE 06/03/2010 THONG HODGES, DWAINE T 250.00 DIABETES MELLITUS TYPE 2 06/03/2010 THONG HODGES, DWAINE T 356.1 PERONEAL MUSCULAR ATROPHY 06/03/2010 THONG HODGES, DWAINE T 780.79 FATIGUE 06/03/2010 YE ANDRADE MD 250.00 DIABETES MELLITUS TYPE 2 06/03/2010 YE ANDRADE MD M 356.1 PERONEAL MUSCULAR ATROPHY 06/03/2010 YE ANDRADE MD 780.79 FATIGUE 06/03/2010 THONG HODGES, DWAINE T 250.00 DIABETES MELLITUS TYPE 2 06/03/2010 THONG HODGES, DWAINE T 356.1 PERONEAL MUSCULAR ATROPHY 06/03/2010 THONG SAAVEDRAN, DWAINE T 780.79 FATIGUE 06/03/2010 THONG SAAVEDRAN, DWAINE T 250.00 DIABETES MELLITUS TYPE 2 06/03/2010 THONG SAAVEDRAN, DWAINE T 356.1 PERONEAL MUSCULAR ATROPHY 06/03/2010 THONG SAAVEDRAN, DWAINE T 780.79 FATIGUE 06/03/2010 THONG SAAVEDRAN, DWAINE T 250.00 DIABETES MELLITUS TYPE 2 06/03/2010 THONG SAAVEDRAN, DWAINE T 356.1 PERONEAL MUSCULAR ATROPHY 06/03/2010 THONG SAAVEDRAN, DWAINE T 780.79 FATIGUE 06/03/2010 THONG HODGES, DWAINE T 250.00 DIABETES MELLITUS TYPE 2 06/03/2010 THONG SAAVEDRAN, DWAINE T 356.1 PERONEAL MUSCULAR ATROPHY 06/03/2010 THONG SAAVEDRAN, DWAINE T 780.79 FATIGUE 06/03/2010 THONG SAAVEDRAN, DWAINE T 250.00 DIABETES MELLITUS TYPE 2 06/03/2010 THONG SAAVEDRAN, DWAINE T 356.1 PERONEAL MUSCULAR ATROPHY 06/03/2010 THONG SAAVEDRAN, DWAINE T 780.79 FATIGUE 06/03/2010 THONG SAAVEDRAN, DWAINE T 250.00 DIABETES MELLITUS TYPE 2 06/03/2010 THONG SAAVEDRAN, DWAINE T 356.1 PERONEAL MUSCULAR ATROPHY 06/03/2010 THONG SAAVEDRAN, DWAINE T 780.79 FATIGUE 06/03/2010 THONG SAAVEDRAN, DWAINE T 250.00 DIABETES MELLITUS TYPE 2 06/03/2010 THONG SAAVEDRAN, DWAINE T 356.1 PERONEAL MUSCULAR ATROPHY 06/03/2010 THONG SAAVEDRAN, DWAINE T 780.79 FATIGUE 06/03/2010 THONG HODGES, DWAINE T 250.00 DIABETES MELLITUS TYPE 2 06/03/2010 THONG HODGES DWAINE T 356.1 PERONEAL MUSCULAR ATROPHY 06/03/2010 THONG HODGES DWAINE T 780.79 FATIGUE 06/03/2010 THONG HODGES, DWAINE T 250.00 DIABETES MELLITUS TYPE 2 06/03/2010 THONG HODGES, DWAINE T 356.1 PERONEAL MUSCULAR ATROPHY 06/03/2010 THONG HODGES, DWAINE T 780.79 FATIGUE 06/03/2010 NEIDA TALBOT MD 250.00 DIABETES MELLITUS TYPE 2 06/03/2010 NEIDA TALBOT MD 356.1 PERONEAL MUSCULAR ATROPHY 06/03/2010 NEIDA TALBOT MD 780.79 FATIGUE 06/03/2010 THONG HODGES, DWAINE T 250.00 DIABETES MELLITUS TYPE 2 06/03/2010 THONG HODGES, DWAINE T 356.1 PERONEAL MUSCULAR ATROPHY 06/03/2010 THONG HODGES DWAINE T 780.79 FATIGUE 06/03/2010 THONG HODGES, DWAINE T 250.00 DIABETES MELLITUS TYPE 2 06/03/2010 THONG HODGES DWAINE T 356.1 PERONEAL MUSCULAR ATROPHY 06/03/2010 THONG HODGES, DWAINE T 780.79 FATIGUE 06/03/2010 THONG HODGES DWAINE T 250.00 DIABETES MELLITUS TYPE 2 06/03/2010 THONG HODGES DWAINE T 356.1 PERONEAL MUSCULAR ATROPHY 06/03/2010 THONG HODGES DWAINE T 780.79 FATIGUE 06/03/2010 THONG BUSINESS OPERATIONS MANAGER, DWAINE T 250.00 DIABETES MELLITUS TYPE 2 06/03/2010 THONG HODGES, DWAINE T 356.1 PERONEAL MUSCULAR ATROPHY 06/03/2010 THONG HODGES, DWAINE T 780.79 FATIGUE 06/03/2010 THONG HODGES, DWAINE T 250.00 DIABETES MELLITUS TYPE 2 06/03/2010 THONG HODGES, DWAINE T 356.1 PERONEAL MUSCULAR ATROPHY 06/03/2010 THONG HODGES DWAINE T 780.79 FATIGUE 06/03/2010 THONG HODGES, DWAINE T 250.00 DIABETES MELLITUS TYPE 2 06/03/2010 THONG HODGES, DWAINE T 356.1 PERONEAL MUSCULAR ATROPHY 06/03/2010 THONG HODGES, DWAINE T 780.79 FATIGUE 06/03/2010 THONG HODGES, DWAINE T 250.00 DIABETES MELLITUS TYPE 2 06/03/2010 THONG HODGES DWAINE T 356.1 PERONEAL MUSCULAR ATROPHY 06/03/2010 THONG HODGES DWAINE T 780.79 FATIGUE 06/03/2010 NEIDA TALBOT MD 250.00 DIABETES MELLITUS TYPE 2 06/03/2010 NEIDA TALBOT MD 356.1 PERONEAL MUSCULAR ATROPHY 06/03/2010 NEIDA TALBOT MD 780.79 FATIGUE 06/03/2010 250.00 DIABETES MELLITUS TYPE 2 06/03/2010 356.1 PERONEAL MUSCULAR ATROPHY 06/03/2010 780.79 FATIGUE 06/03/2010 THONG HODGES, DWAINE T 250.00 DIABETES MELLITUS TYPE 2 06/03/2010 THONG HODGES DWAINE T 356.1 PERONEAL MUSCULAR ATROPHY 06/03/2010 THONG HODGES DWAINE T 780.79 FATIGUE 06/03/2010 THONG HODGES, DWAINE T 250.00 DIABETES MELLITUS TYPE 2 06/03/2010 THONG HODGES, DWAINE T 356.1 PERONEAL MUSCULAR ATROPHY 06/03/2010 THONG HODGES, DWAINE T 780.79 FATIGUE 06/03/2010 THONG HODGES, DWAINE T 250.00 DIABETES MELLITUS TYPE 2 06/03/2010 THONG HODGES DWAINE T 356.1 PERONEAL MUSCULAR ATROPHY 06/03/2010 THONG HODGES DWAINE T 780.79 FATIGUE 06/03/2010 THONG HODGES DWAINE T 250.00 DIABETES MELLITUS TYPE 2 06/03/2010 THONG HODGES DWAINE T 356.1 PERONEAL MUSCULAR ATROPHY 06/03/2010 THONG HODGES DWAINE T 780.79 FATIGUE 06/03/2010 THONG BUSINESS OPERATIONS MANAGER, DWAINE T 250.00 DIABETES MELLITUS TYPE 2 06/03/2010 THONG HODGES, DWAINE T 356.1 PERONEAL MUSCULAR ATROPHY 06/03/2010 THONG HODGES, DWAINE T 780.79 FATIGUE 06/03/2010 NEIDA TALBOT MD 250.00 DIABETES MELLITUS TYPE 2 06/03/2010 NEIDA TALBOT MD 356.1 PERONEAL MUSCULAR ATROPHY 06/03/2010 NEIDA TALBOT MD 780.79 FATIGUE 06/03/2010 THONG HODGES, DWAINE T 250.00 DIABETES MELLITUS TYPE 2 06/03/2010 THONG HODGES, DWAINE T 356.1 PERONEAL MUSCULAR ATROPHY 06/03/2010 THONG HODGES, DWAINE T 780.79 FATIGUE 06/03/2010 THONG HODGES, DWAINE T 250.00 DIABETES MELLITUS TYPE 2 06/03/2010 THONG HODGES DWAINE T 356.1 PERONEAL MUSCULAR ATROPHY 06/03/2010 THONG HODGES DWAINE T 780.79 FATIGUE 06/03/2010 PRICE DO, GILBERTO K 250.00 DIABETES MELLITUS TYPE 2 06/03/2010 PRICE DO, GILBERTO K 356.1 PERONEAL MUSCULAR ATROPHY 06/03/2010 PRICE DO, GILBERTO K 780.79 FATIGUE 06/03/2010 THONG HODGES, DWAINE T 250.00 DIABETES MELLITUS TYPE 2 06/03/2010 THONG HODGES DWAINE T 356.1 PERONEAL MUSCULAR ATROPHY 06/03/2010 THONG HODGES, DWAINE T 780.79 FATIGUE 06/03/2010 THONG HODGES, DWAINE T 250.00 DIABETES MELLITUS TYPE 2 06/03/2010 THONG HODGES DWAINE T 356.1 PERONEAL MUSCULAR ATROPHY 06/03/2010 THONG HODGES DWAINE T 780.79 FATIGUE 06/03/2010 THONG HODGES, DWAINE T 250.00 DIABETES MELLITUS TYPE 2 06/03/2010 THONG HODGES DWAINE T 356.1 PERONEAL MUSCULAR ATROPHY 06/03/2010 THONG HODGES DWAINE T 780.79 FATIGUE 06/03/2010 THONG HODGES, DWAINE T 250.00 DIABETES MELLITUS TYPE 2 06/03/2010 THONG HODGES DWAINE T 356.1 PERONEAL MUSCULAR ATROPHY 06/03/2010 THONG HODGES DWAINE T 780.79 FATIGUE 06/03/2010 THONG HODGES DWAINE T 250.00 DIABETES MELLITUS TYPE 2 06/03/2010 THONG HODGES DWAINE T 356.1 PERONEAL MUSCULAR ATROPHY 06/03/2010 THONG SAAVEDRAN, DWAINE T 780.79 FATIGUE 06/03/2010 PRICE DO, GILBERTO K 250.00 DIABETES MELLITUS TYPE 2 06/03/2010 PRICE DO, GILBERTO K 356.1 PERONEAL MUSCULAR ATROPHY 06/03/2010 PRICE DO, GILBERTO K 780.79 FATIGUE 06/03/2010 THONG SAAVEDRAN, DWAINE T 250.00 DIABETES MELLITUS TYPE 2 06/03/2010 THONG SAAVEDRAN, DWAINE T 356.1 PERONEAL MUSCULAR ATROPHY 06/03/2010 THONG SAAVEDRAN, DWAINE T 780.79 FATIGUE 06/03/2010 THONG BUSINESS OPERATIONS MANAGER, DWAINE T 250.00 DIABETES MELLITUS TYPE 2 06/03/2010 THONG SAAVEDRAN, DWAINE T 356.1 PERONEAL MUSCULAR ATROPHY 06/03/2010 THONG SAAVEDRAN, DWAINE T 780.79 FATIGUE 06/03/2010 THONG SAAVEDRAN, DWAINE T 250.00 DIABETES MELLITUS TYPE 2 06/03/2010 THONG SAAVEDRAN DWAINE T 356.1 PERONEAL MUSCULAR ATROPHY 06/03/2010 THONG HODGES DWAINE T 780.79 FATIGUE 06/03/2010 THONG SAAVEDRAN, DWAINE T 250.00 DIABETES MELLITUS TYPE 2 06/03/2010 THONG SAAVEDRAN, DWAINE T 356.1 PERONEAL MUSCULAR ATROPHY 06/03/2010 THONG SAAVEDRAN, DWAINE T 780.79 FATIGUE 06/03/2010 THONG SAAVEDRAN, DWAINE T 250.00 DIABETES MELLITUS TYPE 2 06/03/2010 THONG SAAVEDRAN, DWAINE T 356.1 PERONEAL MUSCULAR ATROPHY 06/03/2010 THONG SAAVEDRAN, DWAINE T 780.79 FATIGUE 06/03/2010 THONG SAAVEDRAN, DWAINE T 250.00 DIABETES MELLITUS TYPE 2 06/03/2010 THONG SAAVEDRAN, DWAINE T 356.1 PERONEAL MUSCULAR ATROPHY 06/03/2010 THONG SAAVEDRAN, DWAINE T 780.79 FATIGUE 06/03/2010 THONG SAAVEDRAN, DWAINE T 250.00 DIABETES MELLITUS TYPE 2 06/03/2010 THONG SAAVEDRAN, DWAINE T 356.1 PERONEAL MUSCULAR ATROPHY 06/03/2010 THONG SAAVEDRAN, DWAINE T 780.79 FATIGUE 06/03/2010 THONG SAAVEDRAN, DWAINE T 250.00 DIABETES MELLITUS TYPE 2 06/03/2010 THONG SAAVEDRAN DWAINE T 356.1 PERONEAL MUSCULAR ATROPHY 06/03/2010 THONG HODGES DWAINE T 780.79 FATIGUE 06/03/2010 THONG SAAVEDRAN, DWAINE T 250.00 DIABETES MELLITUS TYPE 2 06/03/2010 DWAINE BENITO APRN 356.1 PERONEAL MUSCULAR ATROPHY 06/03/2010 DWAINE BENITO APRN 780.79 FATIGUE 06/03/2010 DWAINE BENITO APRN 250.00 DIABETES MELLITUS TYPE 2 06/03/2010 DWAINE BENITO APRN 356.1 PERONEAL MUSCULAR ATROPHY 06/03/2010 DWAINE BENITO APRN 780.79 FATIGUE 06/28/2010 DWAINE BENITO APRN 268.9 VITAMIN D DEFICIENCY 06/28/2010 NEIDA TALBOT MD 268.9 VITAMIN D DEFICIENCY 06/28/2010 268.9 VITAMIN D DEFICIENCY 06/28/2010 GILBERTO PRICE DO 268.9 VITAMIN D DEFICIENCY 06/28/2010 DWAINE BENITO APRN 268.9 VITAMIN D DEFICIENCY 06/28/2010 268.9 VITAMIN D DEFICIENCY 06/28/2010 268.9 VITAMIN D DEFICIENCY 06/28/2010 DWAINE BENITO APRN 268.9 VITAMIN D DEFICIENCY 06/28/2010 268.9 VITAMIN D DEFICIENCY 06/28/2010 268.9 VITAMIN D DEFICIENCY 06/28/2010 DWAINE BENITO APRN 268.9 VITAMIN D DEFICIENCY 06/28/2010 268.9 VITAMIN D DEFICIENCY 06/28/2010 268.9 VITAMIN D DEFICIENCY 06/28/2010 268.9 VITAMIN D DEFICIENCY 06/28/2010 268.9 VITAMIN D DEFICIENCY 06/28/2010 268.9 VITAMIN D DEFICIENCY 06/28/2010 268.9 VITAMIN D DEFICIENCY 06/28/2010 268.9 VITAMIN D DEFICIENCY 06/28/2010 268.9 VITAMIN D DEFICIENCY 06/28/2010 268.9 VITAMIN D DEFICIENCY 06/28/2010 268.9 VITAMIN D DEFICIENCY 06/28/2010 268.9 VITAMIN D DEFICIENCY 06/28/2010 DWAINE BENITO APRN 268.9 VITAMIN D DEFICIENCY 06/28/2010 DWAINE BENITO APRN 268.9 VITAMIN D DEFICIENCY 06/28/2010 NEIDA TALBOT MD 268.9 VITAMIN D DEFICIENCY 06/28/2010 DWAINE BENITO APRN 268.9 VITAMIN D DEFICIENCY 06/28/2010 NEIDA TALBOT MD 268.9 VITAMIN D DEFICIENCY 06/28/2010 DWAINE BENITO APRN 268.9 VITAMIN D DEFICIENCY 06/28/2010 NEIDA TALBOT MD 268.9 VITAMIN D DEFICIENCY 06/28/2010 THONG BUSINESS OPERATIONS MANAGER, DWAINE T 268.9 VITAMIN D DEFICIENCY 06/28/2010 THONG BUSINESS OPERATIONS MANAGER DWAINE T 268.9 VITAMIN D DEFICIENCY 06/28/2010 THONG BUSINESS OPERATIONS MANAGER DWAINE T 268.9 VITAMIN D DEFICIENCY 06/28/2010 THONG BUSINESS OPERATIONS MANAGER, DWAINE T 268.9 VITAMIN D DEFICIENCY 06/28/2010 THONG BUSINESS OPERATIONS MANAGER, DWAINE T 268.9 VITAMIN D DEFICIENCY 06/28/2010 THONG BUSINESS OPERATIONS MANAGER DWAINE T 268.9 VITAMIN D DEFICIENCY 06/28/2010 THONG SAAVEDRAN DWAINE T 268.9 VITAMIN D DEFICIENCY 06/28/2010 THONG BUSINESS OPERATIONS MANAGER DWAINE T 268.9 VITAMIN D DEFICIENCY 06/28/2010 YE ANDRADE MD 268.9 VITAMIN D DEFICIENCY 06/28/2010 THONG BUSINESS OPERATIONS MANAGER DWAINE T 268.9 VITAMIN D DEFICIENCY 06/28/2010 THONG SAAVEDRAN DWAINE T 268.9 VITAMIN D DEFICIENCY 06/28/2010 THONG SAAVEDRAN DWAINE T 268.9 VITAMIN D DEFICIENCY 06/28/2010 DWAINE BENITO APRN T 268.9 VITAMIN D DEFICIENCY 06/28/2010 THONG HODGES DWAINE T 268.9 VITAMIN D DEFICIENCY 06/28/2010 THONG HODGES DWAINE T 268.9 VITAMIN D DEFICIENCY 06/28/2010 THONG SAAVEDRAN DWAINE T 268.9 VITAMIN D DEFICIENCY 06/28/2010 THONG BUSINESS OPERATIONS MANAGER DWAINE T 268.9 VITAMIN D DEFICIENCY 06/28/2010 THONG HODGES DWAINE T 268.9 VITAMIN D DEFICIENCY 06/28/2010 ANTIONE MORRISON, NEIDA 268.9 VITAMIN D DEFICIENCY 06/28/2010 THONG HODGES DWAINE T 268.9 VITAMIN D DEFICIENCY 06/28/2010 THONG HODGES DWAINE T 268.9 VITAMIN D DEFICIENCY 06/28/2010 THONG HODGES DWAINE T 268.9 VITAMIN D DEFICIENCY 06/28/2010 THONG SAAVEDRAN DWAINE T 268.9 VITAMIN D DEFICIENCY 06/28/2010 THONG HODGES DWAINE T 268.9 VITAMIN D DEFICIENCY 06/28/2010 THONG HODGES DWAINE T 268.9 VITAMIN D DEFICIENCY 06/28/2010 THONG HODGES DWAINE T 268.9 VITAMIN D DEFICIENCY 06/28/2010 NEIDA TALBOT MD 268.9 VITAMIN D DEFICIENCY 06/28/2010 268.9 VITAMIN D DEFICIENCY 06/28/2010 THONG HODGES DWAINE T 268.9 VITAMIN D DEFICIENCY 06/28/2010 THONG HODGES DWAINE T 268.9 VITAMIN D DEFICIENCY 06/28/2010 DWAINE BENITO APRN T 268.9 VITAMIN D DEFICIENCY 06/28/2010 DWAINE BENITO APRN T 268.9 VITAMIN D DEFICIENCY 06/28/2010 DWAINE BENITO APRN T 268.9 VITAMIN D DEFICIENCY 06/28/2010 NEIDA TALBOT MD 268.9 VITAMIN D DEFICIENCY 06/28/2010 DWAINE BENITO APRN T 268.9 VITAMIN D DEFICIENCY 06/28/2010 DWAINE BENITO APRN T 268.9 VITAMIN D DEFICIENCY 06/28/2010 PRICE DO GILBERTO K 268.9 VITAMIN D DEFICIENCY 06/28/2010 DWAINE BENITO APRN T 268.9 VITAMIN D DEFICIENCY 06/28/2010 DWAINE BENITO APRN T 268.9 VITAMIN D DEFICIENCY 06/28/2010 DWAINE BENITO APRN T 268.9 VITAMIN D DEFICIENCY 06/28/2010 DWAINE BENITO APRN T 268.9 VITAMIN D DEFICIENCY 06/28/2010 DWAINE BENITO APRN T 268.9 VITAMIN D DEFICIENCY 06/28/2010 PRICE DO GILBERTO K 268.9 VITAMIN D DEFICIENCY 06/28/2010 DWAINE BENITO APRN T 268.9 VITAMIN D DEFICIENCY 06/28/2010 DWAINE BENITO APRN T 268.9 VITAMIN D DEFICIENCY 06/28/2010 DWAINE BENITO APRN T 268.9 VITAMIN D DEFICIENCY 06/28/2010 DWAINE BENITO APRN T 268.9 VITAMIN D DEFICIENCY 06/28/2010 DWAINE BENITO APRN T 268.9 VITAMIN D DEFICIENCY 06/28/2010 DWAINE BENITO APRN T 268.9 VITAMIN D DEFICIENCY 06/28/2010 DWAINE BENITO APRN T 268.9 VITAMIN D DEFICIENCY 06/28/2010 DWAINE BENITO APRN T 268.9 VITAMIN D DEFICIENCY 06/28/2010 DWAINE BENITO APRN T 268.9 VITAMIN D DEFICIENCY 06/28/2010 DWAINE BENITO APRN T 268.9 VITAMIN D DEFICIENCY 07/02/2010 DWAINE BENITO APRN T 272.4 HYPERLIPIDEMIA 07/02/2010 NEIDA TALBOT MD 272.4 HYPERLIPIDEMIA 07/02/2010 272.4 HYPERLIPIDEMIA 07/02/2010 PRICE DO, GILBERTO K 272.4 HYPERLIPIDEMIA 07/02/2010 DWAINE BENITO APRN T 272.4 HYPERLIPIDEMIA 07/02/2010 272.4 HYPERLIPIDEMIA 07/02/2010 272.4 HYPERLIPIDEMIA 07/02/2010 DWAINE BENITO APRN T 272.4 HYPERLIPIDEMIA 07/02/2010 272.4 HYPERLIPIDEMIA 07/02/2010 272.4 HYPERLIPIDEMIA 07/02/2010 THONG [employer] OPERATIONS MANAGER, DWAINE T 272.4 HYPERLIPIDEMIA 07/02/2010 272.4 HYPERLIPIDEMIA 07/02/2010 272.4 HYPERLIPIDEMIA 07/02/2010 272.4 HYPERLIPIDEMIA 07/02/2010 272.4 HYPERLIPIDEMIA 07/02/2010 272.4 HYPERLIPIDEMIA 07/02/2010 272.4 HYPERLIPIDEMIA 07/02/2010 272.4 HYPERLIPIDEMIA 07/02/2010 272.4 HYPERLIPIDEMIA 07/02/2010 272.4 HYPERLIPIDEMIA 07/02/2010 272.4 HYPERLIPIDEMIA 07/02/2010 272.4 HYPERLIPIDEMIA 07/02/2010 [employer]ONG [employer] OPERATIONS MANAGER, DAWINE T 272.4 HYPERLIPIDEMIA 07/02/2010 THONG BUSINESS OPERATIONS MANAGER, DWAINE T 272.4 HYPERLIPIDEMIA 07/02/2010 NEIDA TALBOT MD 272.4 HYPERLIPIDEMIA 07/02/2010 THONG BUSINESS OPERATIONS MANAGER, DWAINE T 272.4 HYPERLIPIDEMIA 07/02/2010 NEIDA TALBOT MD 272.4 HYPERLIPIDEMIA 07/02/2010 THONG BUSINESS OPERATIONS MANAGER, DWAINE T 272.4 HYPERLIPIDEMIA 07/02/2010 NEIDA TALBOT MD 272.4 HYPERLIPIDEMIA 07/02/2010 THONG BUSINESS OPERATIONS MANAGER, DWAINE T 272.4 HYPERLIPIDEMIA 07/02/2010 THONG BUSINESS OPERATIONS MANAGER, DWAINE T 272.4 HYPERLIPIDEMIA 07/02/2010 THONG BUSINESS OPERATIONS MANAGER, DWAINE T 272.4 HYPERLIPIDEMIA 07/02/2010 THONG BUSINESS OPERATIONS MANAGER, DWAINE T 272.4 HYPERLIPIDEMIA 07/02/2010 THONG BUSINESS OPERATIONS MANAGER, DWAINE T 272.4 HYPERLIPIDEMIA 07/02/2010 THONG BUSINESS OPERATIONS MANAGER, DWAINE T 272.4 HYPERLIPIDEMIA 07/02/2010 THONG BUSINESS OPERATIONS MANAGER, DWAINE T 272.4 HYPERLIPIDEMIA 07/02/2010 THONG BUSINESS OPERATIONS MANAGER, DWAINE T 272.4 HYPERLIPIDEMIA 07/02/2010 YE ANDRADE MD 272.4 HYPERLIPIDEMIA 07/02/2010 THONG BUSINESS OPERATIONS MANAGER, DWAINE T 272.4 HYPERLIPIDEMIA 07/02/2010 THONG BUSINESS OPERATIONS MANAGER, DWAINE T 272.4 HYPERLIPIDEMIA 07/02/2010 THONG BUSINESS OPERATIONS MANAGER, DWAINE T 272.4 HYPERLIPIDEMIA 07/02/2010 THONG BUSINESS OPERATIONS MANAGER, DWAINE T 272.4 HYPERLIPIDEMIA 07/02/2010 THONG BUSINESS OPERATIONS MANAGER, DWAINE T 272.4 HYPERLIPIDEMIA 07/02/2010 THONG BUSINESS OPERATIONS MANAGER, DWAINE T 272.4 HYPERLIPIDEMIA 07/02/2010 THONG BUSINESS OPERATIONS MANAGER, DWAINE T 272.4 HYPERLIPIDEMIA 07/02/2010 THONG BUSINESS OPERATIONS MANAGER, DWAINE T 272.4 HYPERLIPIDEMIA 07/02/2010 THONG BUSINESS OPERATIONS MANAGER, DWAINE T 272.4 HYPERLIPIDEMIA 07/02/2010 NEIDA TALBOT MD 272.4 HYPERLIPIDEMIA 07/02/2010 THONG BUSINESS OPERATIONS MANAGER, DWAINE T 272.4 HYPERLIPIDEMIA 07/02/2010 THONG BUSINESS OPERATIONS MANAGER, DWAINE T 272.4 HYPERLIPIDEMIA 07/02/2010 THONG BUSINESS OPERATIONS MANAGER, DWAINE T 272.4 HYPERLIPIDEMIA 07/02/2010 THONG BUSINESS OPERATIONS MANAGER, DWAINE T 272.4 HYPERLIPIDEMIA 07/02/2010 THONG BUSINESS OPERATIONS MANAGER, DWAINE T 272.4 HYPERLIPIDEMIA 07/02/2010 THONG BUSINESS OPERATIONS MANAGER, DWAINE T 272.4 HYPERLIPIDEMIA 07/02/2010 THONG BUSINESS OPERATIONS MANAGER, DWAINE T 272.4 HYPERLIPIDEMIA 07/02/2010 NEIDA TALBOT MD 272.4 HYPERLIPIDEMIA 07/02/2010 272.4 HYPERLIPIDEMIA 07/02/2010 THONG BUSINESS OPERATIONS MANAGER, DWAINE T 272.4 HYPERLIPIDEMIA 07/02/2010 THONG BUSINESS OPERATIONS MANAGER, DWAINE T 272.4 HYPERLIPIDEMIA 07/02/2010 THONG BUSINESS OPERATIONS MANAGER, DWAINE T 272.4 HYPERLIPIDEMIA 07/02/2010 THONG BUSINESS OPERATIONS MANAGER, DWAINE T 272.4 HYPERLIPIDEMIA 07/02/2010 THONG BUSINESS OPERATIONS MANAGER, DWAINE T 272.4 HYPERLIPIDEMIA 07/02/2010 NEIDA TALBOT MD 272.4 HYPERLIPIDEMIA 07/02/2010 THONG BUSINESS OPERATIONS MANAGER, DWAINE T 272.4 HYPERLIPIDEMIA 07/02/2010 THONG BUSINESS OPERATIONS MANAGER, DWAINE T 272.4 HYPERLIPIDEMIA 07/02/2010 PRICE DO, GILBERTO K 272.4 HYPERLIPIDEMIA 07/02/2010 THONG BUSINESS OPERATIONS MANAGER, DWAINE T 272.4 HYPERLIPIDEMIA 07/02/2010 THONG BUSINESS OPERATIONS MANAGER, DWAINE T 272.4 HYPERLIPIDEMIA 07/02/2010 THONG BUSINESS OPERATIONS MANAGER, DWAINE T 272.4 HYPERLIPIDEMIA 07/02/2010 THONG BUSINESS OPERATIONS MANAGER, DWAINE T 272.4 HYPERLIPIDEMIA 07/02/2010 THONG BUSINESS OPERATIONS MANAGER, DWAINE T 272.4 HYPERLIPIDEMIA 07/02/2010 PRICE DO, GILBERTO K 272.4 HYPERLIPIDEMIA 07/02/2010 THONG BUSINESS OPERATIONS MANAGER, DWAINE T 272.4 HYPERLIPIDEMIA 07/02/2010 THONG BUSINESS OPERATIONS MANAGER, DWAINE T 272.4 HYPERLIPIDEMIA 07/02/2010 THONG BUSINESS OPERATIONS MANAGER, DWAINE T 272.4 HYPERLIPIDEMIA 07/02/2010 THONG BUSINESS OPERATIONS MANAGER, DWAINE T 272.4 HYPERLIPIDEMIA 07/02/2010 THONG BUSINESS OPERATIONS MANAGER, DWAINE T 272.4 HYPERLIPIDEMIA 07/02/2010 THONG BUSINESS OPERATIONS MANAGER, DWAINE T 272.4 HYPERLIPIDEMIA 07/02/2010 THONG BUSINESS OPERATIONS MANAGER, DWAINE T 272.4 HYPERLIPIDEMIA 07/02/2010 THONG BUSINESS OPERATIONS MANAGER, DWAINE T 272.4 HYPERLIPIDEMIA 07/02/2010 THONG BUSINESS OPERATIONS MANAGER, DWAINE T 272.4 HYPERLIPIDEMIA 07/02/2010 DWAINE BENITO APRN 272.4 HYPERLIPIDEMIA 08/07/2010 DWAIEN BENIOT APRN 707.05 CHRONIC CUTANEOUS ULCER DECUBITUS BUTTOCK 08/07/2010 DWAINE BENITO APRN V58.31 WOUND DRESSING 08/07/2010 NEIDA TALBOT MD 707.05 CHRONIC CUTANEOUS ULCER DECUBITUS BUTTOCK 08/07/2010 NEIDA TALBOT MD V58.31 WOUND DRESSING 08/07/2010 707.05 CHRONIC CUTANEOUS ULCER DECUBITUS BUTTOCK 08/07/2010 V58.31 WOUND DRESSING 08/07/2010 GILBERTO PRICE DO 707.05 CHRONIC CUTANEOUS ULCER DECUBITUS BUTTOCK 08/07/2010 GILBERTO PRICE DO V58.31 WOUND DRESSING 08/07/2010 DWAINE BENITO APRN 707.05 CHRONIC CUTANEOUS ULCER DECUBITUS BUTTOCK 08/07/2010 DWAINE BENITO APRN V58.31 WOUND DRESSING 08/07/2010 707.05 CHRONIC CUTANEOUS ULCER DECUBITUS BUTTOCK 08/07/2010 V58.31 WOUND DRESSING 08/07/2010 707.05 CHRONIC CUTANEOUS ULCER DECUBITUS BUTTOCK 08/07/2010 V58.31 WOUND DRESSING 08/07/2010 DWAINE BENITO APRN 707.05 CHRONIC CUTANEOUS ULCER DECUBITUS BUTTOCK 08/07/2010 DWAINE BENITO APRN V58.31 WOUND DRESSING 08/07/2010 707.05 CHRONIC CUTANEOUS ULCER DECUBITUS BUTTOCK 08/07/2010 V58.31 WOUND DRESSING 08/07/2010 707.05 CHRONIC CUTANEOUS ULCER DECUBITUS BUTTOCK 08/07/2010 V58.31 WOUND DRESSING 08/07/2010 DWAINE BENITO APRN 707.05 CHRONIC CUTANEOUS ULCER DECUBITUS BUTTOCK 08/07/2010 DWAINE BENITO APRN V58.31 WOUND DRESSING 08/07/2010 707.05 CHRONIC CUTANEOUS ULCER DECUBITUS BUTTOCK 08/07/2010 V58.31 WOUND DRESSING 08/07/2010 707.05 CHRONIC CUTANEOUS ULCER DECUBITUS BUTTOCK 08/07/2010 V58.31 WOUND DRESSING 08/07/2010 707.05 CHRONIC CUTANEOUS ULCER DECUBITUS BUTTOCK 08/07/2010 V58.31 WOUND DRESSING 08/07/2010 707.05 CHRONIC CUTANEOUS ULCER DECUBITUS BUTTOCK 08/07/2010 V58.31 WOUND DRESSING 08/07/2010 707.05 CHRONIC CUTANEOUS ULCER DECUBITUS BUTTOCK 08/07/2010 V58.31 WOUND DRESSING 08/07/2010 707.05 CHRONIC CUTANEOUS ULCER DECUBITUS BUTTOCK 08/07/2010 V58.31 WOUND DRESSING 08/07/2010 707.05 CHRONIC CUTANEOUS ULCER DECUBITUS BUTTOCK 08/07/2010 V58.31 WOUND DRESSING 08/07/2010 707.05 CHRONIC CUTANEOUS ULCER DECUBITUS BUTTOCK 08/07/2010 V58.31 WOUND DRESSING 08/07/2010 707.05 CHRONIC CUTANEOUS ULCER DECUBITUS BUTTOCK 08/07/2010 V58.31 WOUND DRESSING 08/07/2010 707.05 CHRONIC CUTANEOUS ULCER DECUBITUS BUTTOCK 08/07/2010 V58.31 WOUND DRESSING 08/07/2010 707.05 CHRONIC CUTANEOUS ULCER DECUBITUS BUTTOCK 08/07/2010 V58.31 WOUND DRESSING 08/07/2010 DWAINE BENITO APRN 707.05 CHRONIC CUTANEOUS ULCER DECUBITUS BUTTOCK 08/07/2010 DWAINE BENITO APRN V58.31 WOUND DRESSING 08/07/2010 DWAINE BENITO APRN 707.05 CHRONIC CUTANEOUS ULCER DECUBITUS BUTTOCK 08/07/2010 DWAINE BENITO APRN V58.31 WOUND DRESSING 08/07/2010 NEIDA TALBOT MD 707.05 CHRONIC CUTANEOUS ULCER DECUBITUS BUTTOCK 08/07/2010 NEIDA TALBOT MD V58.31 WOUND DRESSING 08/07/2010 DWAINE BENITO APRN 707.05 CHRONIC CUTANEOUS ULCER DECUBITUS BUTTOCK 08/07/2010 DWAINE BENITO APRN V58.31 WOUND DRESSING 08/07/2010 NEIDA TALBOT MD 707.05 CHRONIC CUTANEOUS ULCER DECUBITUS BUTTOCK 08/07/2010 NEIDA TALBOT MD V58.31 WOUND DRESSING 08/07/2010 DWAINE BENITO APRN 707.05 CHRONIC CUTANEOUS ULCER DECUBITUS BUTTOCK 08/07/2010 DWAINE BENITO APRN V58.31 WOUND DRESSING 08/07/2010 NEIDA TALBOT MD 707.05 CHRONIC CUTANEOUS ULCER DECUBITUS BUTTOCK 08/07/2010 NEIDA TALBOT MD V58.31 WOUND DRESSING 08/07/2010 DWAINE BENITO APRN 707.05 CHRONIC CUTANEOUS ULCER DECUBITUS BUTTOCK 08/07/2010 THONG SAAVEDRAN, DWAINE T V58.31 WOUND DRESSING 08/07/2010 THONG SAAVEDRAN, DWAINE T 707.05 CHRONIC CUTANEOUS ULCER DECUBITUS BUTTOCK 08/07/2010 THONG SAAVEDRAN, DWAINE T V58.31 WOUND DRESSING 08/07/2010 THONG SAAVEDRAN, DWAINE T 707.05 CHRONIC CUTANEOUS ULCER DECUBITUS BUTTOCK 08/07/2010 THONG SAAVEDRAN, DWAINE T V58.31 WOUND DRESSING 08/07/2010 THONG SAAVEDRAN, DWAINE T 707.05 CHRONIC CUTANEOUS ULCER DECUBITUS BUTTOCK 08/07/2010 THONG SAAVEDRAN, DWAINE T V58.31 WOUND DRESSING 08/07/2010 THONG SAAVEDRAN, DWAINE T 707.05 CHRONIC CUTANEOUS ULCER DECUBITUS BUTTOCK 08/07/2010 THONG SAAVEDRAN, DWAINE T V58.31 WOUND DRESSING 08/07/2010 THONG SAAVEDRAN, DWAINE T 707.05 CHRONIC CUTANEOUS ULCER DECUBITUS BUTTOCK 08/07/2010 THONG HODGES, DWAINE T V58.31 WOUND DRESSING 08/07/2010 DWAINE BENITO APRN T 707.05 CHRONIC CUTANEOUS ULCER DECUBITUS BUTTOCK 08/07/2010 THONG HODGES, DWAINE T V58.31 WOUND DRESSING 08/07/2010 THONG HODGES DWAINE T 707.05 CHRONIC CUTANEOUS ULCER DECUBITUS BUTTOCK 08/07/2010 THONG HODGES, DWAINE T V58.31 WOUND DRESSING 08/07/2010 YE ANDRADE MD 707.05 CHRONIC CUTANEOUS ULCER DECUBITUS BUTTOCK 08/07/2010 YE ANDRADE MD V58.31 WOUND DRESSING 08/07/2010 THONG HODGES DWAINE T 707.05 CHRONIC CUTANEOUS ULCER DECUBITUS BUTTOCK 08/07/2010 THONG HODGES DWAINE T V58.31 WOUND DRESSING 08/07/2010 THONG HODGES DWAINE T 707.05 CHRONIC CUTANEOUS ULCER DECUBITUS BUTTOCK 08/07/2010 THONG HODGES, DWAINE T V58.31 WOUND DRESSING 08/07/2010 THONG HODGES DWAINE T 707.05 CHRONIC CUTANEOUS ULCER DECUBITUS BUTTOCK 08/07/2010 THONG HODGES, DWAINE T V58.31 WOUND DRESSING 08/07/2010 DWAINE BENITO APRN T 707.05 CHRONIC CUTANEOUS ULCER DECUBITUS BUTTOCK 08/07/2010 THONG BUSINESS OPERATIONS MANAGER, DWAINE T V58.31 WOUND DRESSING 08/07/2010 THONG SAAVEDRAN, DWAINE T 707.05 CHRONIC CUTANEOUS ULCER DECUBITUS BUTTOCK 08/07/2010 THONG SAAVEDRAN, DWAINE T V58.31 WOUND DRESSING 08/07/2010 THONG SAAVEDRAN, DWAINE T 707.05 CHRONIC CUTANEOUS ULCER DECUBITUS BUTTOCK 08/07/2010 THONG SAAVEDRAN, DWAINE T V58.31 WOUND DRESSING 08/07/2010 THONG SAAVEDRAN, DWAINE T 707.05 CHRONIC CUTANEOUS ULCER DECUBITUS BUTTOCK 08/07/2010 THONG SAAVEDRAN, DWAINE T V58.31 WOUND DRESSING 08/07/2010 THONG SAAVEDRAN, DWAINE T 707.05 CHRONIC CUTANEOUS ULCER DECUBITUS BUTTOCK 08/07/2010 THONG SAAVEDRAN, DWAINE T V58.31 WOUND DRESSING 08/07/2010 THONG SAAVEDRAN, DWAINE T 707.05 CHRONIC CUTANEOUS ULCER DECUBITUS BUTTOCK 08/07/2010 THONG HODGES, DWAINE T V58.31 WOUND DRESSING 08/07/2010 NEIDA TALBOT MD 707.05 CHRONIC CUTANEOUS ULCER DECUBITUS BUTTOCK 08/07/2010 NEIDA TALBOT MD V58.31 WOUND DRESSING 08/07/2010 THONG HODGES, DWAINE T 707.05 CHRONIC CUTANEOUS ULCER DECUBITUS BUTTOCK 08/07/2010 THONG HODGES, DWAINE T V58.31 WOUND DRESSING 08/07/2010 THONG HODGES, DWAINE T 707.05 CHRONIC CUTANEOUS ULCER DECUBITUS BUTTOCK 08/07/2010 THONG HODGES, DWAINE T V58.31 WOUND DRESSING 08/07/2010 THONG HODGES, DWAINE T 707.05 CHRONIC CUTANEOUS ULCER DECUBITUS BUTTOCK 08/07/2010 THONG HODGES, DWAINE T V58.31 WOUND DRESSING 08/07/2010 THONG SAAVEDRAN, DWAINE T 707.05 CHRONIC CUTANEOUS ULCER DECUBITUS BUTTOCK 08/07/2010 THONG SAAVEDRAN, DWAINE T V58.31 WOUND DRESSING 08/07/2010 THONG SAAVEDRAN, DWAINE T 707.05 CHRONIC CUTANEOUS ULCER DECUBITUS BUTTOCK 08/07/2010 THONG SAAVEDRAN, DWAINE T V58.31 WOUND DRESSING 08/07/2010 THONG HODGES, DWAINE T 707.05 CHRONIC CUTANEOUS ULCER DECUBITUS BUTTOCK 08/07/2010 THONG HODGES DWAINE T V58.31 WOUND DRESSING 08/07/2010 THONG HODGES, DWAINE T 707.05 CHRONIC CUTANEOUS ULCER DECUBITUS BUTTOCK 08/07/2010 THONG HODGES DWAINE T V58.31 WOUND DRESSING 08/07/2010 ANTIONE MORRISON, NEIDA 707.05 CHRONIC CUTANEOUS ULCER DECUBITUS BUTTOCK 08/07/2010 ANTIONE MORRISON, NEIDA V58.31 WOUND DRESSING 08/07/2010 707.05 CHRONIC CUTANEOUS ULCER DECUBITUS BUTTOCK 08/07/2010 V58.31 WOUND DRESSING 08/07/2010 DWAINE BENITO APRN T 707.05 CHRONIC CUTANEOUS ULCER DECUBITUS BUTTOCK 08/07/2010 THONG HODGES DWAINE T V58.31 WOUND DRESSING 08/07/2010 DWAINE BENITO APRN T 707.05 CHRONIC CUTANEOUS ULCER DECUBITUS BUTTOCK 08/07/2010 DWAINE BENITO APRN T V58.31 WOUND DRESSING 08/07/2010 DWAINE BENITO APRN T 707.05 CHRONIC CUTANEOUS ULCER DECUBITUS BUTTOCK 08/07/2010 DWAINE BENITO APRN T V58.31 WOUND DRESSING 08/07/2010 DWAINE BENITO APRN 707.05 CHRONIC CUTANEOUS ULCER DECUBITUS BUTTOCK 08/07/2010 DWAINE BENITO APRN T V58.31 WOUND DRESSING 08/07/2010 DWAINE BENITO APRN T 707.05 CHRONIC CUTANEOUS ULCER DECUBITUS BUTTOCK 08/07/2010 THONG HODGES DWAINE T V58.31 WOUND DRESSING 08/07/2010 NEIDA TALBOT MD 707.05 CHRONIC CUTANEOUS ULCER DECUBITUS BUTTOCK 08/07/2010 NEIDA TALBOT MD V58.31 WOUND DRESSING 08/07/2010 DWAINE BENITO APRN 707.05 CHRONIC CUTANEOUS ULCER DECUBITUS BUTTOCK 08/07/2010 DWAINE BENITO APRN T V58.31 WOUND DRESSING 08/07/2010 DWAINE BENITO APRN T 707.05 CHRONIC CUTANEOUS ULCER DECUBITUS BUTTOCK 08/07/2010 THONG HODGES DWAINE T V58.31 WOUND DRESSING 08/07/2010 GILBERTO PRICE DO K 707.05 CHRONIC CUTANEOUS ULCER DECUBITUS BUTTOCK 08/07/2010 GILBERTO PRICE DO K V58.31 WOUND DRESSING 08/07/2010 DWAINE BENITO APRN T 707.05 CHRONIC CUTANEOUS ULCER DECUBITUS BUTTOCK 08/07/2010 DWAINE BENITO APRN T V58.31 WOUND DRESSING 08/07/2010 DWAINE BENITO APRN T 707.05 CHRONIC CUTANEOUS ULCER DECUBITUS BUTTOCK 08/07/2010 THONG HODGES DWAINE T V58.31 WOUND DRESSING 08/07/2010 DWAINE BENITO APRN T 707.05 CHRONIC CUTANEOUS ULCER DECUBITUS BUTTOCK 08/07/2010 THONG SAAVEDRAN DWAINE T V58.31 WOUND DRESSING 08/07/2010 DWAINE BENITO APRN T 707.05 CHRONIC CUTANEOUS ULCER DECUBITUS BUTTOCK 08/07/2010 THONG SAAVEDRAN DWAINE T V58.31 WOUND DRESSING 08/07/2010 THONG SAAVEDRANDWAINE T 707.05 CHRONIC CUTANEOUS ULCER DECUBITUS BUTTOCK 08/07/2010 THONG SAAVEDRAN DWAINE T V58.31 WOUND DRESSING 08/07/2010 DEE DOERNESTOA K 707.05 CHRONIC CUTANEOUS ULCER DECUBITUS BUTTOCK 08/07/2010 DEE DO GILBERTO K V58.31 WOUND DRESSING 08/07/2010 DWAINE BENITO APRN T 707.05 CHRONIC CUTANEOUS ULCER DECUBITUS BUTTOCK 08/07/2010 THONG HODGES DWAINE T V58.31 WOUND DRESSING 08/07/2010 DWAINE BENITO APRN T 707.05 CHRONIC CUTANEOUS ULCER DECUBITUS BUTTOCK 08/07/2010 THONG HODGES DWAINE T V58.31 WOUND DRESSING 08/07/2010 DWAINE BENITO APRN T 707.05 CHRONIC CUTANEOUS ULCER DECUBITUS BUTTOCK 08/07/2010 THONG HODGES DWAINE T V58.31 WOUND DRESSING 08/07/2010 DWAINE BENITO APRN T 707.05 CHRONIC CUTANEOUS ULCER DECUBITUS BUTTOCK 08/07/2010 DWAINE BENITO APRN T V58.31 WOUND DRESSING 08/07/2010 DWAINE BENITO APRN T 707.05 CHRONIC CUTANEOUS ULCER DECUBITUS BUTTOCK 08/07/2010 THONG HODGES DWAINE T V58.31 WOUND DRESSING 08/07/2010 THONG HODGES DWAINE T 707.05 CHRONIC CUTANEOUS ULCER DECUBITUS BUTTOCK 08/07/2010 THONG HODGES DWAINE T V58.31 WOUND DRESSING 08/07/2010 THONG HODGES DWAINE T 707.05 CHRONIC CUTANEOUS ULCER DECUBITUS BUTTOCK 08/07/2010 THONG HODGES DWAINE T V58.31 WOUND DRESSING 08/07/2010 DWAINE BENITO APRN T 707.05 CHRONIC CUTANEOUS ULCER DECUBITUS BUTTOCK 08/07/2010 DWAINE BENITO APRN V58.31 WOUND DRESSING 08/07/2010 DWAINE BENITO APRN 707.05 CHRONIC CUTANEOUS ULCER DECUBITUS BUTTOCK 08/07/2010 DWAINE BENITO APRN V58.31 WOUND DRESSING 08/07/2010 DWAINE BENITO APRN 707.05 CHRONIC CUTANEOUS ULCER DECUBITUS BUTTOCK 08/07/2010 DWAINE BENITO APRN V58.31 WOUND DRESSING 08/11/2010 Ot 707.00 08/11/2010 Ot 707.20 08/14/2010 DWAINE BENITO APRN 300.00 anxiety 08/14/2010 DWAINE BENITO APRN 338.29 CHRONIC PAIN 08/14/2010 NEIDA TALBOT MD 300.00 anxiety 08/14/2010 NEIDA TALBOT MD 338.29 CHRONIC PAIN 08/14/2010 300.00 anxiety 08/14/2010 338.29 CHRONIC PAIN 08/14/2010 PRICE DOGILBERTO K 300.00 anxiety 08/14/2010 PRICE DOERNESTOA K 338.29 CHRONIC PAIN 08/14/2010 DWAINE BENITO APRN 300.00 anxiety 08/14/2010 DWAINE BENITO APRN 338.29 CHRONIC PAIN 08/14/2010 300.00 anxiety 08/14/2010 338.29 CHRONIC PAIN 08/14/2010 300.00 anxiety 08/14/2010 338.29 CHRONIC PAIN 08/14/2010 DWAINE BENITO APRN 300.00 anxiety 08/14/2010 DWAINE BENITO APRN 338.29 CHRONIC PAIN 08/14/2010 300.00 anxiety 08/14/2010 338.29 CHRONIC PAIN 08/14/2010 300.00 anxiety 08/14/2010 338.29 CHRONIC PAIN 08/14/2010 DWAINE BENITO APRN 300.00 anxiety 08/14/2010 DWAINE BENITO APRN 338.29 CHRONIC PAIN 08/14/2010 300.00 anxiety 08/14/2010 338.29 CHRONIC PAIN 08/14/2010 300.00 anxiety 08/14/2010 338.29 CHRONIC PAIN 08/14/2010 300.00 anxiety 08/14/2010 338.29 CHRONIC PAIN 08/14/2010 300.00 anxiety 08/14/2010 338.29 CHRONIC PAIN 08/14/2010 300.00 anxiety 08/14/2010 338.29 CHRONIC PAIN 08/14/2010 300.00 anxiety 08/14/2010 338.29 CHRONIC PAIN 08/14/2010 300.00 anxiety 08/14/2010 338.29 CHRONIC PAIN 08/14/2010 300.00 anxiety 08/14/2010 338.29 CHRONIC PAIN 08/14/2010 300.00 anxiety 08/14/2010 338.29 CHRONIC PAIN 08/14/2010 300.00 anxiety 08/14/2010 338.29 CHRONIC PAIN 08/14/2010 300.00 anxiety 08/14/2010 338.29 CHRONIC PAIN 08/14/2010 THONG HODGES DWAINE T 300.00 anxiety 08/14/2010 THONG HODGES DWAINE T 338.29 CHRONIC PAIN 08/14/2010 THONG HODGES, DWAINE T 300.00 anxiety 08/14/2010 THONG HODGES DWAINE T 338.29 CHRONIC PAIN 08/14/2010 NEIDA TALBOT MD 300.00 anxiety 08/14/2010 NEIDA TALBOT MD 338.29 CHRONIC PAIN 08/14/2010 THONG HODGES DWAINE T 300.00 anxiety 08/14/2010 DWAINE BENITO APRN T 338.29 CHRONIC PAIN 08/14/2010 NEIDA TALBOT MD 300.00 anxiety 08/14/2010 NEIDA TALBOT MD 338.29 CHRONIC PAIN 08/14/2010 THONG HODGES DWAINE T 300.00 anxiety 08/14/2010 DWAINE BENITO APRN T 338.29 CHRONIC PAIN 08/14/2010 NEIDA TALBOT MD 300.00 anxiety 08/14/2010 NEIDA TALBOT MD 338.29 CHRONIC PAIN 08/14/2010 THONG HODGES DWAINE T 300.00 anxiety 08/14/2010 THONG HODGES DWAINE T 338.29 CHRONIC PAIN 08/14/2010 THONG HODGES DWAINE T 300.00 anxiety 08/14/2010 THONG HODGES DWAINE T 338.29 CHRONIC PAIN 08/14/2010 THONG HODGES DWAINE T 300.00 anxiety 08/14/2010 THONG HODGES DWAINE T 338.29 CHRONIC PAIN 08/14/2010 THONG HODGES DWAINE T 300.00 anxiety 08/14/2010 THONG HODGES DWAINE T 338.29 CHRONIC PAIN 08/14/2010 THONG HODGES DWAINE T 300.00 anxiety 08/14/2010 THONG HODGES DWAINE T 338.29 CHRONIC PAIN 08/14/2010 THONG HODGES DWAINE T 300.00 anxiety 08/14/2010 THONG BUSINESS OPERATIONS MANAGER, DWAINE T 338.29 CHRONIC PAIN 08/14/2010 THONG BUSINESS OPERATIONS MANAGER, DWAINE T 300.00 anxiety 08/14/2010 THONG BUSINESS OPERATIONS MANAGER, DWAINE T 338.29 CHRONIC PAIN 08/14/2010 THONG BUSINESS OPERATIONS MANAGER, DWAINE T 300.00 anxiety 08/14/2010 THONG BUSINESS OPERATIONS MANAGER, DWAINE T 338.29 CHRONIC PAIN 08/14/2010 YE ANDRADE MD 300.00 anxiety 08/14/2010 YE ANDRADE MD 338.29 CHRONIC PAIN 08/14/2010 THONG BUSINESS OPERATIONS MANAGER, DWAINE T 300.00 anxiety 08/14/2010 THONG BUSINESS OPERATIONS MANAGER, DWAINE T 338.29 CHRONIC PAIN 08/14/2010 THONG BUSINESS OPERATIONS MANAGER, DWAINE T 300.00 anxiety 08/14/2010 THONG SAAVEDRAN, DWAINE T 338.29 CHRONIC PAIN 08/14/2010 THONG SAAVEDRAN, DWAINE T 300.00 anxiety 08/14/2010 THONG SAAVEDRAN, DWAINE T 338.29 CHRONIC PAIN 08/14/2010 THONG SAAVEDRAN, DWAINE T 300.00 anxiety 08/14/2010 THONG SAAVEDRAN, DWAINE T 338.29 CHRONIC PAIN 08/14/2010 THONG SAAVEDRAN, DWAINE T 300.00 anxiety 08/14/2010 THONG BUSINESS OPERATIONS MANAGER, DWAINE T 338.29 CHRONIC PAIN 08/14/2010 THONG BUSINESS OPERATIONS MANAGER, DWAINE T 300.00 anxiety 08/14/2010 THONG BUSINESS OPERATIONS MANAGER, DWAINE T 338.29 CHRONIC PAIN 08/14/2010 THONG BUSINESS OPERATIONS MANAGER, DWAINE T 300.00 anxiety 08/14/2010 THONG BUSINESS OPERATIONS MANAGER, DWAINE T 338.29 CHRONIC PAIN 08/14/2010 THONG BUSINESS OPERATIONS MANAGER, DWAINE T 300.00 anxiety 08/14/2010 THONG HODGES, DWAINE T 338.29 CHRONIC PAIN 08/14/2010 THONG SAAVEDRAN, DWAINE T 300.00 anxiety 08/14/2010 THONG BUSINESS OPERATIONS MANAGER, DWAINE T 338.29 CHRONIC PAIN 08/14/2010 NEIDA TALBOT MD 300.00 anxiety 08/14/2010 NEIDA TALBOT MD 338.29 CHRONIC PAIN 08/14/2010 THONG HODGES, DWAINE T 300.00 anxiety 08/14/2010 THONG HODGES, DWAINE T 338.29 CHRONIC PAIN 08/14/2010 THONG HODGES, DWAINE T 300.00 anxiety 08/14/2010 THONG HODGES, DWAINE T 338.29 CHRONIC PAIN 08/14/2010 THONG HODGES, DWAINE T 300.00 anxiety 08/14/2010 THONG HODGES, DWAINE T 338.29 CHRONIC PAIN 08/14/2010 THONG HODGES, DWAINE T 300.00 anxiety 08/14/2010 THONG HODGES, DWAINE T 338.29 CHRONIC PAIN 08/14/2010 THONG HODGES, DWANIE T 300.00 anxiety 08/14/2010 THONG BUSINESS OPERATIONS MANAGER, DWAINE T 338.29 CHRONIC PAIN 08/14/2010 THONG HODGES, DWAINE T 300.00 anxiety 08/14/2010 THONG HODGES DWAINE T 338.29 CHRONIC PAIN 08/14/2010 THONG HODGES, DWAINE T 300.00 anxiety 08/14/2010 THONG HODGES, DWAINE T 338.29 CHRONIC PAIN 08/14/2010 NEIDA TALBOT MD 300.00 anxiety 08/14/2010 NEIDA TALBOT MD 338.29 CHRONIC PAIN 08/14/2010 300.00 anxiety 08/14/2010 338.29 CHRONIC PAIN 08/14/2010 THONG HODGES, DWAINE T 300.00 anxiety 08/14/2010 THONG HODGES DWAINE T 338.29 CHRONIC PAIN 08/14/2010 THONG HODGES DWAINE T 300.00 anxiety 08/14/2010 THONG HODGES DWAINE T 338.29 CHRONIC PAIN 08/14/2010 THONG HODGES, DWAINE T 300.00 anxiety 08/14/2010 THONG HODGES, DWAINE T 338.29 CHRONIC PAIN 08/14/2010 THONG HODGES DWAINE T 300.00 anxiety 08/14/2010 THONG HODGES DWAINE T 338.29 CHRONIC PAIN 08/14/2010 THONG HODGES DWAINE T 300.00 anxiety 08/14/2010 THONG HODGES DWAINE T 338.29 CHRONIC PAIN 08/14/2010 NEIDA TALBOT MD 300.00 anxiety 08/14/2010 NEIDA TALBOT MD 338.29 CHRONIC PAIN 08/14/2010 THONG HODGES DWAINE T 300.00 anxiety 08/14/2010 THONG HODGES DWAINE T 338.29 CHRONIC PAIN 08/14/2010 THONG HODGES DWAINE T 300.00 anxiety 08/14/2010 THONG HODGES DWAINE T 338.29 CHRONIC PAIN 08/14/2010 PRICE DO, GILBERTO K 300.00 anxiety 08/14/2010 PRICE DO, GILBERTO K 338.29 CHRONIC PAIN 08/14/2010 THONG HODGES DWAINE T 300.00 anxiety 08/14/2010 THONG HODGES DWAINE T 338.29 CHRONIC PAIN 08/14/2010 THONG BUSINESS OPERATIONS MANAGER, DWAINE T 300.00 anxiety 08/14/2010 THONG BUSINESS OPERATIONS MANAGER, DWAINE T 338.29 CHRONIC PAIN 08/14/2010 THONG BUSINESS OPERATIONS MANAGER, DWAINE T 300.00 anxiety 08/14/2010 THONG BUSINESS OPERATIONS MANAGER, DWAINE T 338.29 CHRONIC PAIN 08/14/2010 THONG BUSINESS OPERATIONS MANAGER, DWAINE T 300.00 anxiety 08/14/2010 THONG BUSINESS OPERATIONS MANAGER, DWAINE T 338.29 CHRONIC PAIN 08/14/2010 THONG BUSINESS OPERATIONS MANAGER, DWAINE T 300.00 anxiety 08/14/2010 THONG BUSINESS OPERATIONS MANAGER, DWAINE T 338.29 CHRONIC PAIN 08/14/2010 PRICE DO, GILBERTO K 300.00 anxiety 08/14/2010 PRICE DO, GILBERTO K 338.29 CHRONIC PAIN 08/14/2010 THONG BUSINESS OPERATIONS MANAGER, DWAINE T 300.00 anxiety 08/14/2010 THONG BUSINESS OPERATIONS MANAGER, DWAINE T 338.29 CHRONIC PAIN 08/14/2010 THONG BUSINESS OPERATIONS MANAGER, DWAINE T 300.00 anxiety 08/14/2010 THONG SAAVEDRAN, DWAINE T 338.29 CHRONIC PAIN 08/14/2010 THONG SAAVEDRAN DWAINE T 300.00 anxiety 08/14/2010 THONG BUSINESS OPERATIONS MANAGER, DWAINE T 338.29 CHRONIC PAIN 08/14/2010 THONG BUSINESS OPERATIONS MANAGER, DWAINE T 300.00 anxiety 08/14/2010 THONG BUSINESS OPERATIONS MANAGER, DWAINE T 338.29 CHRONIC PAIN 08/14/2010 THONG BUSINESS OPERATIONS MANAGER, DWAINE T 300.00 anxiety 08/14/2010 THONG BUSINESS OPERATIONS MANAGER, DWAINE T 338.29 CHRONIC PAIN 08/14/2010 THONG BUSINESS OPERATIONS MANAGER, DWAINE T 300.00 anxiety 08/14/2010 THONG BUSINESS OPERATIONS MANAGER, DWAINE T 338.29 CHRONIC PAIN 08/14/2010 THONG SAAVEDRAN, DWAINE T 300.00 anxiety 08/14/2010 [employer]ONG BUSINESS OPERATIONS MANAGER, DWAINE T 338.29 CHRONIC PAIN 08/14/2010 [employer] BUSINESS OPERATIONS MANAGER, DWAINE T 300.00 anxiety 08/14/2010 THONG BUSINESS OPERATIONS MANAGER, DWAINE T 338.29 CHRONIC PAIN 08/14/2010 [employer] BUSINESS OPERATIONS MANAGER, DWAINE T 300.00 anxiety 08/14/2010 THONG BUSINESS OPERATIONS MANAGER, DWAINE T 338.29 CHRONIC PAIN 08/14/2010 THONG BUSINESS OPERATIONS MANAGER, DWAINE T 300.00 anxiety 08/14/2010 THONG [employer] OPERATIONS MANAGER, DWAINE T 338.29 CHRONIC PAIN 09/17/2010 Ot 356.1 09/17/2010 Ot 707.09 09/17/2010 Ot 707.20 09/17/2010 Ot V53.6 09/21/2010 DWAINE BENITO APRN T 599.0 URINARY TRACT INFECTION 09/21/2010 NEIDA TALBOT MD 599.0 URINARY TRACT INFECTION 09/21/2010 599.0 URINARY TRACT INFECTION 09/21/2010 DEE GUILLAUME GILBERTO Anjali 599.0 URINARY TRACT INFECTION 09/21/2010 DWAINE BENITO APRN T 599.0 URINARY TRACT INFECTION 09/21/2010 599.0 URINARY TRACT INFECTION 09/21/2010 599.0 URINARY TRACT INFECTION 09/21/2010 DWAINE BENITO APRN T 599.0 URINARY TRACT INFECTION 09/21/2010 599.0 URINARY TRACT INFECTION 09/21/2010 599.0 URINARY TRACT INFECTION 09/21/2010 DWAINE BENITO APRN T 599.0 URINARY TRACT INFECTION 09/21/2010 599.0 URINARY TRACT INFECTION 09/21/2010 599.0 URINARY TRACT INFECTION 09/21/2010 599.0 URINARY TRACT INFECTION 09/21/2010 599.0 URINARY TRACT INFECTION 09/21/2010 599.0 URINARY TRACT INFECTION 09/21/2010 599.0 URINARY TRACT INFECTION 09/21/2010 599.0 URINARY TRACT INFECTION 09/21/2010 599.0 URINARY TRACT INFECTION 09/21/2010 599.0 URINARY TRACT INFECTION 09/21/2010 599.0 URINARY TRACT INFECTION 09/21/2010 599.0 URINARY TRACT INFECTION 09/21/2010 DWAINE BENITO APRN T 599.0 URINARY TRACT INFECTION 09/21/2010 DWAINE BENITO APRN T 599.0 URINARY TRACT INFECTION 09/21/2010 NEIDA TALBOT MD 599.0 URINARY TRACT INFECTION 09/21/2010 DWAINE BENITO APRN T 599.0 URINARY TRACT INFECTION 09/21/2010 NEIDA TALBOT MD 599.0 URINARY TRACT INFECTION 09/21/2010 DWAINE BENITO APRN T 599.0 URINARY TRACT INFECTION 09/21/2010 NEIDA TALBOT MD 599.0 URINARY TRACT INFECTION 09/21/2010 DWAINE BENITO APRN T 599.0 URINARY TRACT INFECTION 09/21/2010 DWAINE BENITO APRN T 599.0 URINARY TRACT INFECTION 09/21/2010 DWAINE BENITO APRN T 599.0 URINARY TRACT INFECTION 09/21/2010 DWAINE BENITO APRN T 599.0 URINARY TRACT INFECTION 09/21/2010 [employer] OPERATIONS MANAGER, DWAINE T 599.0 URINARY TRACT INFECTION 09/21/2010 THONG BUSINESS OPERATIONS MANAGER, DWAINE T 599.0 URINARY TRACT INFECTION 09/21/2010 THONG BUSINESS OPERATIONS MANAGER, DWAINE T 599.0 URINARY TRACT INFECTION 09/21/2010 THONG BUSINESS OPERATIONS MANAGER, DWAINE T 599.0 URINARY TRACT INFECTION 09/21/2010 RAYMOND MORRISON, YE Robles 599.0 URINARY TRACT INFECTION 09/21/2010 THONG BUSINESS OPERATIONS MANAGER, DWAINE T 599.0 URINARY TRACT INFECTION 09/21/2010 THONG BUSINESS OPERATIONS MANAGER, DWAINE T 599.0 URINARY TRACT INFECTION 09/21/2010 THONG BUSINESS OPERATIONS MANAGER, DWAINE T 599.0 URINARY TRACT INFECTION 09/21/2010 THONG BUSINESS OPERATIONS MANAGER, DWAINE T 599.0 URINARY TRACT INFECTION 09/21/2010 THONG BUSINESS OPERATIONS MANAGER, DWAINE T 599.0 URINARY TRACT INFECTION 09/21/2010 THONG BUSINESS OPERATIONS MANAGER, DWAINE T 599.0 URINARY TRACT INFECTION 09/21/2010 THONG BUSINESS OPERATIONS MANAGER, DWAINE T 599.0 URINARY TRACT INFECTION 09/21/2010 THONG BUSINESS OPERATIONS MANAGER, DWAINE T 599.0 URINARY TRACT INFECTION 09/21/2010 THONG BUSINESS OPERATIONS MANAGER, DWAINE T 599.0 URINARY TRACT INFECTION 09/21/2010 NEIDA TALBOT MD 599.0 URINARY TRACT INFECTION 09/21/2010 THONG BUSINESS OPERATIONS MANAGER, DWAINE T 599.0 URINARY TRACT INFECTION 09/21/2010 THONG BUSINESS OPERATIONS MANAGER, DWAINE T 599.0 URINARY TRACT INFECTION 09/21/2010 THONG BUSINESS OPERATIONS MANAGER, DWAINE T 599.0 URINARY TRACT INFECTION 09/21/2010 THONG BUSINESS OPERATIONS MANAGER, DWAINE T 599.0 URINARY TRACT INFECTION 09/21/2010 THONG BUSINESS OPERATIONS MANAGER, DWAINE T 599.0 URINARY TRACT INFECTION 09/21/2010 THONG BUSINESS OPERATIONS MANAGER, DWAINE T 599.0 URINARY TRACT INFECTION 09/21/2010 THONG BUSINESS OPERATIONS MANAGER, DWAINE T 599.0 URINARY TRACT INFECTION 09/21/2010 NEIDA TALBOT MD 599.0 URINARY TRACT INFECTION 09/21/2010 599.0 URINARY TRACT INFECTION 09/21/2010 THONG BUSINESS OPERATIONS MANAGER, DWAINE T 599.0 URINARY TRACT INFECTION 09/21/2010 THONG BUSINESS OPERATIONS MANAGER, DWAINE T 599.0 URINARY TRACT INFECTION 09/21/2010 THONG BUSINESS OPERATIONS MANAGER, DWAINE T 599.0 URINARY TRACT INFECTION 09/21/2010 THONG BUSINESS OPERATIONS MANAGER, DWAINE T 599.0 URINARY TRACT INFECTION 09/21/2010 THONG BUSINESS OPERATIONS MANAGER, DWAINE T 599.0 URINARY TRACT INFECTION 09/21/2010 NEIDA TALBOT MD 599.0 URINARY TRACT INFECTION 09/21/2010 THONG BUSINESS OPERATIONS MANAGER, DWAINE T 599.0 URINARY TRACT INFECTION 09/21/2010 THONG BUSINESS OPERATIONS MANAGER, DWAINE T 599.0 URINARY TRACT INFECTION 09/21/2010 PRICE DO, GILBERTO K 599.0 URINARY TRACT INFECTION 09/21/2010 THONG BUSINESS OPERATIONS MANAGER, DWAINE T 599.0 URINARY TRACT INFECTION 09/21/2010 THONG BUSINESS OPERATIONS MANAGER, DWAINE T 599.0 URINARY TRACT INFECTION 09/21/2010 THONG BUSINESS OPERATIONS MANAGER, DWAINE T 599.0 URINARY TRACT INFECTION 09/21/2010 THONG BUSINESS OPERATIONS MANAGER, DWAINE T 599.0 URINARY TRACT INFECTION 09/21/2010 THONG BUSINESS OPERATIONS MANAGER, DWAINE T 599.0 URINARY TRACT INFECTION 09/21/2010 PRICE DO, GILBERTO K 599.0 URINARY TRACT INFECTION 09/21/2010 THONG BUSINESS OPERATIONS MANAGER, DWAINE T 599.0 URINARY TRACT INFECTION 09/21/2010 THONG BUSINESS OPERATIONS MANAGER, DWAINE T 599.0 URINARY TRACT INFECTION 09/21/2010 THONG BUSINESS OPERATIONS MANAGER, DWAINE T 599.0 URINARY TRACT INFECTION 09/21/2010 THONG BUSINESS OPERATIONS MANAGER, DWAINE T 599.0 URINARY TRACT INFECTION 09/21/2010 THONG BUSINESS OPERATIONS MANAGER, DWAINE T 599.0 URINARY TRACT INFECTION 09/21/2010 THONG BUSINESS OPERATIONS MANAGER, DWAINE T 599.0 URINARY TRACT INFECTION 09/21/2010 THONG BUSINESS OPERATIONS MANAGER, DWAINE T 599.0 URINARY TRACT INFECTION 09/21/2010 THONG BUSINESS OPERATIONS MANAGER, DWAINE T 599.0 URINARY TRACT INFECTION 09/21/2010 THONG BUSINESS OPERATIONS MANAGER, DWAINE T 599.0 URINARY TRACT INFECTION 09/21/2010 THONG BUSINESS OPERATIONS MANAGER, DWAINE T 599.0 URINARY TRACT INFECTION 10/07/2010 Ot 599.0 10/07/2010 Ot V53.6 11/08/2010 THONG HODGES DWAINE T 682.9 CELLULITIS AND ABSCESS OF UNSPECIFIED SITES 11/08/2010 NEIDA TALBOT MD 682.9 CELLULITIS AND ABSCESS OF UNSPECIFIED SITES 11/08/2010 682.9 CELLULITIS AND ABSCESS OF UNSPECIFIED SITES 11/08/2010 PRICE DO, GILBERTO K 682.9 CELLULITIS AND ABSCESS OF UNSPECIFIED SITES 11/08/2010 DWAINE BENITO APRN T 682.9 CELLULITIS AND ABSCESS OF UNSPECIFIED SITES 11/08/2010 682.9 CELLULITIS AND ABSCESS OF UNSPECIFIED SITES 11/08/2010 682.9 CELLULITIS AND ABSCESS OF UNSPECIFIED SITES 11/08/2010 DWAINE BENITO APRN 682.9 CELLULITIS AND ABSCESS OF UNSPECIFIED SITES 11/08/2010 682.9 CELLULITIS AND ABSCESS OF UNSPECIFIED SITES 11/08/2010 682.9 CELLULITIS AND ABSCESS OF UNSPECIFIED SITES 11/08/2010 DWAINE BENITO APRN 682.9 CELLULITIS AND ABSCESS OF UNSPECIFIED SITES 11/08/2010 682.9 CELLULITIS AND ABSCESS OF UNSPECIFIED SITES 11/08/2010 682.9 CELLULITIS AND ABSCESS OF UNSPECIFIED SITES 11/08/2010 682.9 CELLULITIS AND ABSCESS OF UNSPECIFIED SITES 11/08/2010 682.9 CELLULITIS AND ABSCESS OF UNSPECIFIED SITES 11/08/2010 682.9 CELLULITIS AND ABSCESS OF UNSPECIFIED SITES 11/08/2010 682.9 CELLULITIS AND ABSCESS OF UNSPECIFIED SITES 11/08/2010 682.9 CELLULITIS AND ABSCESS OF UNSPECIFIED SITES 11/08/2010 682.9 CELLULITIS AND ABSCESS OF UNSPECIFIED SITES 11/08/2010 682.9 CELLULITIS AND ABSCESS OF UNSPECIFIED SITES 11/08/2010 682.9 CELLULITIS AND ABSCESS OF UNSPECIFIED SITES 11/08/2010 682.9 CELLULITIS AND ABSCESS OF UNSPECIFIED SITES 11/08/2010 DWAINE BENITO APRN 682.9 CELLULITIS AND ABSCESS OF UNSPECIFIED SITES 11/08/2010 DWAINE BENITO APRN 682.9 CELLULITIS AND ABSCESS OF UNSPECIFIED SITES 11/08/2010 NEIDA TALBOT MD 682.9 CELLULITIS AND ABSCESS OF UNSPECIFIED SITES 11/08/2010 DWAINE BENITO APRN 682.9 CELLULITIS AND ABSCESS OF UNSPECIFIED SITES 11/08/2010 NEIDA TALBOT MD 682.9 CELLULITIS AND ABSCESS OF UNSPECIFIED SITES 11/08/2010 DWAINE BENITO APRN 682.9 CELLULITIS AND ABSCESS OF UNSPECIFIED SITES 11/08/2010 NEIDA TALBOT MD 682.9 CELLULITIS AND ABSCESS OF UNSPECIFIED SITES 11/08/2010 DWAINE BENITO APRN 682.9 CELLULITIS AND ABSCESS OF UNSPECIFIED SITES 11/08/2010 DWAINE BENITO APRN 682.9 CELLULITIS AND ABSCESS OF UNSPECIFIED SITES 11/08/2010 DWAINE BENITO APRN 682.9 CELLULITIS AND ABSCESS OF UNSPECIFIED SITES 11/08/2010 DWAINE BENITO APRN T 682.9 CELLULITIS AND ABSCESS OF UNSPECIFIED SITES 11/08/2010 DWAINE BENITO APRN T 682.9 CELLULITIS AND ABSCESS OF UNSPECIFIED SITES 11/08/2010 DWAINE BENITO APRN 682.9 CELLULITIS AND ABSCESS OF UNSPECIFIED SITES 11/08/2010 DWAINE BENITO APRN 682.9 CELLULITIS AND ABSCESS OF UNSPECIFIED SITES 11/08/2010 DWAINE BENITO APRN T 682.9 CELLULITIS AND ABSCESS OF UNSPECIFIED SITES 11/08/2010 RAYMOND MORRISON, YE Robles 682.9 CELLULITIS AND ABSCESS OF UNSPECIFIED SITES 11/08/2010 DWAINE BENITO APRN 682.9 CELLULITIS AND ABSCESS OF UNSPECIFIED SITES 11/08/2010 DWAINE BENITO APRN 682.9 CELLULITIS AND ABSCESS OF UNSPECIFIED SITES 11/08/2010 DWAINE BENITO APRN 682.9 CELLULITIS AND ABSCESS OF UNSPECIFIED SITES 11/08/2010 DWAINE BENITO APRN T 682.9 CELLULITIS AND ABSCESS OF UNSPECIFIED SITES 11/08/2010 DWAINE BENITO APRN T 682.9 CELLULITIS AND ABSCESS OF UNSPECIFIED SITES 11/08/2010 DWAINE BENITO APRN T 682.9 CELLULITIS AND ABSCESS OF UNSPECIFIED SITES 11/08/2010 DWAINE BENITO APRN T 682.9 CELLULITIS AND ABSCESS OF UNSPECIFIED SITES 11/08/2010 DWAINE BENITO APRN 682.9 CELLULITIS AND ABSCESS OF UNSPECIFIED SITES 11/08/2010 DWAINE BENITO APRN 682.9 CELLULITIS AND ABSCESS OF UNSPECIFIED SITES 11/08/2010 ANTIONE MORRISON, NEIDA 682.9 CELLULITIS AND ABSCESS OF UNSPECIFIED SITES 11/08/2010 DWAINE BENITO APRN 682.9 CELLULITIS AND ABSCESS OF UNSPECIFIED SITES 11/08/2010 DWAINE BENITO APRN 682.9 CELLULITIS AND ABSCESS OF UNSPECIFIED SITES 11/08/2010 DWAINE BENITO APRN 682.9 CELLULITIS AND ABSCESS OF UNSPECIFIED SITES 11/08/2010 DWAINE BENITO APRN 682.9 CELLULITIS AND ABSCESS OF UNSPECIFIED SITES 11/08/2010 DWAINE BENITO APRN 682.9 CELLULITIS AND ABSCESS OF UNSPECIFIED SITES 11/08/2010 DWAINE BENITO APRN T 682.9 CELLULITIS AND ABSCESS OF UNSPECIFIED SITES 11/08/2010 DWAINE BENITO APRN 682.9 CELLULITIS AND ABSCESS OF UNSPECIFIED SITES 11/08/2010 NEIDA TALBOT MD 682.9 CELLULITIS AND ABSCESS OF UNSPECIFIED SITES 11/08/2010 682.9 CELLULITIS AND ABSCESS OF UNSPECIFIED SITES 11/08/2010 DWAINE BENITO APRN 682.9 CELLULITIS AND ABSCESS OF UNSPECIFIED SITES 11/08/2010 DWAINE BENITO APRN 682.9 CELLULITIS AND ABSCESS OF UNSPECIFIED SITES 11/08/2010 DWAINE BENITO APRN 682.9 CELLULITIS AND ABSCESS OF UNSPECIFIED SITES 11/08/2010 DWAINE BENITO APRN 682.9 CELLULITIS AND ABSCESS OF UNSPECIFIED SITES 11/08/2010 DWAINE BENITO APRN 682.9 CELLULITIS AND ABSCESS OF UNSPECIFIED SITES 11/08/2010 NEIDA TALBOT MD 682.9 CELLULITIS AND ABSCESS OF UNSPECIFIED SITES 11/08/2010 DWAINE BENITO APRN T 682.9 CELLULITIS AND ABSCESS OF UNSPECIFIED SITES 11/08/2010 DWAINE BNEITO APRN T 682.9 CELLULITIS AND ABSCESS OF UNSPECIFIED SITES 11/08/2010 DEE DOERNESTOA K 682.9 CELLULITIS AND ABSCESS OF UNSPECIFIED SITES 11/08/2010 DWAINE BENITO APRN T 682.9 CELLULITIS AND ABSCESS OF UNSPECIFIED SITES 11/08/2010 DWAINE BENITO APRN 682.9 CELLULITIS AND ABSCESS OF UNSPECIFIED SITES 11/08/2010 DWAINE BENITO APRN 682.9 CELLULITIS AND ABSCESS OF UNSPECIFIED SITES 11/08/2010 DWAINE BENITO APRN T 682.9 CELLULITIS AND ABSCESS OF UNSPECIFIED SITES 11/08/2010 DWAINE BENITO APRN T 682.9 CELLULITIS AND ABSCESS OF UNSPECIFIED SITES 11/08/2010 ERNESTO PRICE DOA K 682.9 CELLULITIS AND ABSCESS OF UNSPECIFIED SITES 11/08/2010 DWAINE BENITO APRN T 682.9 CELLULITIS AND ABSCESS OF UNSPECIFIED SITES 11/08/2010 DWAINE BENITO APRN T 682.9 CELLULITIS AND ABSCESS OF UNSPECIFIED SITES 11/08/2010 DWAINE BENITO APRN 682.9 CELLULITIS AND ABSCESS OF UNSPECIFIED SITES 11/08/2010 DWAINE BENITO APRN 682.9 CELLULITIS AND ABSCESS OF UNSPECIFIED SITES 11/08/2010 DWAIEN BENITO APRN 682.9 CELLULITIS AND ABSCESS OF UNSPECIFIED SITES 11/08/2010 DWAINE BENITO APRN 682.9 CELLULITIS AND ABSCESS OF UNSPECIFIED SITES 11/08/2010 DWAINE BENITO APRN 682.9 CELLULITIS AND ABSCESS OF UNSPECIFIED SITES 11/08/2010 DWAINE BENITO APRN 682.9 CELLULITIS AND ABSCESS OF UNSPECIFIED SITES 11/08/2010 DWAINE BENITO APRN 682.9 CELLULITIS AND ABSCESS OF UNSPECIFIED SITES 11/08/2010 DWAINE BENITO APRN 682.9 CELLULITIS AND ABSCESS OF UNSPECIFIED SITES 01/06/2011 DWAINE BENITO APRN V04.81 FLU DX (3 YRS AND ABOVE, IM) 01/06/2011 NEIDA TALBOT MD V04.81 FLU DX (3 YRS AND ABOVE, IM) 01/06/2011 V04.81 FLU DX (3 YRS AND ABOVE, IM) 01/06/2011 GILBERTO PRICE DO V04.81 FLU DX (3 YRS AND ABOVE, IM) 01/06/2011 DWAINE BENITO APRN V04.81 FLU DX (3 YRS AND ABOVE, IM) 01/06/2011 V04.81 FLU DX (3 YRS AND ABOVE, IM) 01/06/2011 V04.81 FLU DX (3 YRS AND ABOVE, IM) 01/06/2011 DWAINE BENITO APRN V04.81 FLU DX (3 YRS AND ABOVE, IM) 01/06/2011 V04.81 FLU DX (3 YRS AND ABOVE, IM) 01/06/2011 V04.81 FLU DX (3 YRS AND ABOVE, IM) 01/06/2011 DWAINE BENITO APRN V04.81 FLU DX (3 YRS AND ABOVE, IM) 01/06/2011 V04.81 FLU DX (3 YRS AND ABOVE, IM) 01/06/2011 V04.81 FLU DX (3 YRS AND ABOVE, IM) 01/06/2011 V04.81 FLU DX (3 YRS AND ABOVE, IM) 01/06/2011 V04.81 FLU DX (3 YRS AND ABOVE, IM) 01/06/2011 V04.81 FLU DX (3 YRS AND ABOVE, IM) 01/06/2011 V04.81 FLU DX (3 YRS AND ABOVE, IM) 01/06/2011 V04.81 FLU DX (3 YRS AND ABOVE, IM) 01/06/2011 V04.81 FLU DX (3 YRS AND ABOVE, IM) 01/06/2011 V04.81 FLU DX (3 YRS AND ABOVE, IM) 01/06/2011 V04.81 FLU DX (3 YRS AND ABOVE, IM) 01/06/2011 V04.81 FLU DX (3 YRS AND ABOVE, IM) 01/06/2011 DWAINE BENITO APRN T V04.81 FLU DX (3 YRS AND ABOVE, IM) 01/06/2011 DWAINE BENITO APRN T V04.81 FLU DX (3 YRS AND ABOVE, IM) 01/06/2011 NEIDA TALBOT MD V04.81 FLU DX (3 YRS AND ABOVE, IM) 01/06/2011 DWAINE BENITO APRN T V04.81 FLU DX (3 YRS AND ABOVE, IM) 01/06/2011 NEIDA TALBOT MD V04.81 FLU DX (3 YRS AND ABOVE, IM) 01/06/2011 DWAINE BENITO APRN T V04.81 FLU DX (3 YRS AND ABOVE, IM) 01/06/2011 NEIDA TALBOT MD V04.81 FLU DX (3 YRS AND ABOVE, IM) 01/06/2011 DWAINE BENITO APRN T V04.81 FLU DX (3 YRS AND ABOVE, IM) 01/06/2011 DWAINE BENITO APRN T V04.81 FLU DX (3 YRS AND ABOVE, IM) 01/06/2011 THONG HODGES DWAINE T V04.81 FLU DX (3 YRS AND ABOVE, IM) 01/06/2011 THONG HODGES DWAINE T V04.81 FLU DX (3 YRS AND ABOVE, IM) 01/06/2011 THONG HODGES DWAINE T V04.81 FLU DX (3 YRS AND ABOVE, IM) 01/06/2011 THONG HODGES DWAINE T V04.81 FLU DX (3 YRS AND ABOVE, IM) 01/06/2011 DWAINE BENITO APRN T V04.81 FLU DX (3 YRS AND ABOVE, IM) 01/06/2011 THONG HODGES DWAINE T V04.81 FLU DX (3 YRS AND ABOVE, IM) 01/06/2011 RAYMOND MORRISON, YE Robles V04.81 FLU DX (3 YRS AND ABOVE, IM) 01/06/2011 THONG SAAVEDRAN, DWAINE T V04.81 FLU DX (3 YRS AND ABOVE, IM) 01/06/2011 THONG BUSINESS OPERATIONS MANAGER, DWAINE T V04.81 FLU DX (3 YRS AND ABOVE, IM) 01/06/2011 THONG BUSINESS OPERATIONS MANAGER, DWAINE T V04.81 FLU DX (3 YRS AND ABOVE, IM) 01/06/2011 THONG BUSINESS OPERATIONS MANAGER, DWAINE T V04.81 FLU DX (3 YRS AND ABOVE, IM) 01/06/2011 THONG SAAVEDRAN, DWAINE T V04.81 FLU DX (3 YRS AND ABOVE, IM) 01/06/2011 THONG SAAVEDRAN, DWAINE T V04.81 FLU DX (3 YRS AND ABOVE, IM) 01/06/2011 THONG SAAVEDRAN, DWAINE T V04.81 FLU DX (3 YRS AND ABOVE, IM) 01/06/2011 THONG SAAVEDRAN, DWAINE T V04.81 FLU DX (3 YRS AND ABOVE, IM) 01/06/2011 THONG SAAVEDRAN, DWAINE T V04.81 FLU DX (3 YRS AND ABOVE, IM) 01/06/2011 NEIDA TALBOT MD V04.81 FLU DX (3 YRS AND ABOVE, IM) 01/06/2011 THONG HODGES, DWAINE T V04.81 FLU DX (3 YRS AND ABOVE, IM) 01/06/2011 THONG HODGES, DWAINE T V04.81 FLU DX (3 YRS AND ABOVE, IM) 01/06/2011 THONG SAAVEDRAN, DWAINE T V04.81 FLU DX (3 YRS AND ABOVE, IM) 01/06/2011 THONG SAAVEDRAN, DWAINE T V04.81 FLU DX (3 YRS AND ABOVE, IM) 01/06/2011 THONG HODGES, DWAINE T V04.81 FLU DX (3 YRS AND ABOVE, IM) 01/06/2011 THONG HODGES, DWAINE T V04.81 FLU DX (3 YRS AND ABOVE, IM) 01/06/2011 THONG HODGES, DWAINE T V04.81 FLU DX (3 YRS AND ABOVE, IM) 01/06/2011 NEIDA TALBOT MD V04.81 FLU DX (3 YRS AND ABOVE, IM) 01/06/2011 V04.81 FLU DX (3 YRS AND ABOVE, IM) 01/06/2011 THONG SAAVEDRAN, DWAINE T V04.81 FLU DX (3 YRS AND ABOVE, IM) 01/06/2011 THONG BUSINESS OPERATIONS MANAGER, DWAINE T V04.81 FLU DX (3 YRS AND ABOVE, IM) 01/06/2011 THONG BUSINESS OPERATIONS MANAGER, DWAINE T V04.81 FLU DX (3 YRS AND ABOVE, IM) 01/06/2011 THONG BUSINESS OPERATIONS MANAGER, DWAINE T V04.81 FLU DX (3 YRS AND ABOVE, IM) 01/06/2011 THONG SAAVEDRAN, DWAINE T V04.81 FLU DX (3 YRS AND ABOVE, IM) 01/06/2011 NEIDA TALBOT MD V04.81 FLU DX (3 YRS AND ABOVE, IM) 01/06/2011 THONG HODGES, DWAINE T V04.81 FLU DX (3 YRS AND ABOVE, IM) 01/06/2011 THONG SAAVEDRAN, DWAINE T V04.81 FLU DX (3 YRS AND ABOVE, IM) 01/06/2011 GILBERTO PRICE DO K V04.81 FLU DX (3 YRS AND ABOVE, IM) 01/06/2011 THONG SAAVEDRAN, DWAINE T V04.81 FLU DX (3 YRS AND ABOVE, IM) 01/06/2011 THONG SAAVEDRAN, DWAINE T V04.81 FLU DX (3 YRS AND ABOVE, IM) 01/06/2011 THONG SAAVEDRAN, DWAINE T V04.81 FLU DX (3 YRS AND ABOVE, IM) 01/06/2011 THONG SAAVEDRAN, DWAINE T V04.81 FLU DX (3 YRS AND ABOVE, IM) 01/06/2011 THONG SAAVEDRAN, DWAINE T V04.81 FLU DX (3 YRS AND ABOVE, IM) 01/06/2011 GILBERTO PRICE DO K V04.81 FLU DX (3 YRS AND ABOVE, IM) 01/06/2011 THONG SAAVEDRAN, DWAINE T V04.81 FLU DX (3 YRS AND ABOVE, IM) 01/06/2011 THONG SAAVEDRAN, DWAINE T V04.81 FLU DX (3 YRS AND ABOVE, IM) 01/06/2011 THONG SAAVEDRAN, DWAINE T V04.81 FLU DX (3 YRS AND ABOVE, IM) 01/06/2011 THONG SAAVEDRAN, DWAINE T V04.81 FLU DX (3 YRS AND ABOVE, IM) 01/06/2011 THONG SAAVEDRAN, DWAINE T V04.81 FLU DX (3 YRS AND ABOVE, IM) 01/06/2011 DWAINE BENITO APRN V04.81 FLU DX (3 YRS AND ABOVE, IM) 01/06/2011 DWAINE BENITO APRN V04.81 FLU DX (3 YRS AND ABOVE, IM) 01/06/2011 DWAINE BENITO APRN T V04.81 FLU DX (3 YRS AND ABOVE, IM) 01/06/2011 DWAINE BENITO APRN T V04.81 FLU DX (3 YRS AND ABOVE, IM) 01/06/2011 DWAINE BENITO APRN T V04.81 FLU DX (3 YRS AND ABOVE, IM) 03/07/2011 DWAINE BENITO APRN 780.4 DIZZINESS AND GIDDINESS 03/07/2011 NEIDA TALBOT MD 780.4 DIZZINESS AND GIDDINESS 03/07/2011 780.4 DIZZINESS AND GIDDINESS 03/07/2011 GILBERTO PRICE DO 780.4 DIZZINESS AND GIDDINESS 03/07/2011 DWAINE BENITO APRN 780.4 DIZZINESS AND GIDDINESS 03/07/2011 780.4 DIZZINESS AND GIDDINESS 03/07/2011 780.4 DIZZINESS AND GIDDINESS 03/07/2011 DWAINE BENITO APRN 780.4 DIZZINESS AND GIDDINESS 03/07/2011 780.4 DIZZINESS AND GIDDINESS 03/07/2011 780.4 DIZZINESS AND GIDDINESS 03/07/2011 DWAINE BENITO APRN 780.4 DIZZINESS AND GIDDINESS 03/07/2011 780.4 DIZZINESS AND GIDDINESS 03/07/2011 780.4 DIZZINESS AND GIDDINESS 03/07/2011 780.4 DIZZINESS AND GIDDINESS 03/07/2011 780.4 DIZZINESS AND GIDDINESS 03/07/2011 780.4 DIZZINESS AND GIDDINESS 03/07/2011 780.4 DIZZINESS AND GIDDINESS 03/07/2011 780.4 DIZZINESS AND GIDDINESS 03/07/2011 780.4 DIZZINESS AND GIDDINESS 03/07/2011 780.4 DIZZINESS AND GIDDINESS 03/07/2011 780.4 DIZZINESS AND GIDDINESS 03/07/2011 780.4 DIZZINESS AND GIDDINESS 03/07/2011 DWAINE BENITO APRN 780.4 DIZZINESS AND GIDDINESS 03/07/2011 DWAINE BENITO APRN 780.4 DIZZINESS AND GIDDINESS 03/07/2011 NEIDA TALBOT MD 780.4 DIZZINESS AND GIDDINESS 03/07/2011 DWAINE BENITO APRN T 780.4 DIZZINESS AND GIDDINESS 03/07/2011 NEIDA TALBOT MD 780.4 DIZZINESS AND GIDDINESS 03/07/2011 DWAINE BENITO APRN T 780.4 DIZZINESS AND GIDDINESS 03/07/2011 NEIDA TALBOT MD 780.4 DIZZINESS AND GIDDINESS 03/07/2011 DWAINE BENITO APRN T 780.4 DIZZINESS AND GIDDINESS 03/07/2011 THONG HODGES DWAINE T 780.4 DIZZINESS AND GIDDINESS 03/07/2011 THONG BUSINESS OPERATIONS MANAGER DWAINE T 780.4 DIZZINESS AND GIDDINESS 03/07/2011 THONG BUSINESS OPERATIONS MANAGER, DWAINE T 780.4 DIZZINESS AND GIDDINESS 03/07/2011 THONG HODGES DWAINE T 780.4 DIZZINESS AND GIDDINESS 03/07/2011 THONG BUSINESS OPERATIONS MANAGER, DWAINE T 780.4 DIZZINESS AND GIDDINESS 03/07/2011 THONG HODGES DWAINE T 780.4 DIZZINESS AND GIDDINESS 03/07/2011 DWAINE BENITO APRN T 780.4 DIZZINESS AND GIDDINESS 03/07/2011 YE ANDRADE MD 780.4 DIZZINESS AND GIDDINESS 03/07/2011 THONG BUSINESS OPERATIONS MANAGER, DWAINE T 780.4 DIZZINESS AND GIDDINESS 03/07/2011 THONG BUSINESS OPERATIONS MANAGER, DWAINE T 780.4 DIZZINESS AND GIDDINESS 03/07/2011 THONG HODGES DWAINE T 780.4 DIZZINESS AND GIDDINESS 03/07/2011 THONG HODGES DWAINE T 780.4 DIZZINESS AND GIDDINESS 03/07/2011 THONG BUSINESS OPERATIONS MANAGER, DWAINE T 780.4 DIZZINESS AND GIDDINESS 03/07/2011 THONG HODGES DWAINE T 780.4 DIZZINESS AND GIDDINESS 03/07/2011 THONG BUSINESS OPERATIONS MANAGER, DWAINE T 780.4 DIZZINESS AND GIDDINESS 03/07/2011 THONG BUSINESS OPERATIONS MANAGER, DWAINE T 780.4 DIZZINESS AND GIDDINESS 03/07/2011 THONG HODGES DWAINE T 780.4 DIZZINESS AND GIDDINESS 03/07/2011 NEIDA TALBOT MD 780.4 DIZZINESS AND GIDDINESS 03/07/2011 DWAINE BENITO APRN T 780.4 DIZZINESS AND GIDDINESS 03/07/2011 WDAINE BENITO APRN T 780.4 DIZZINESS AND GIDDINESS 03/07/2011 THONG HODGES DWAINE T 780.4 DIZZINESS AND GIDDINESS 03/07/2011 DWAINE BENITO APRN T 780.4 DIZZINESS AND GIDDINESS 03/07/2011 THONG BUSINESS OPERATIONS MANAGERDWAINE Arredondo T 780.4 DIZZINESS AND GIDDINESS 03/07/2011 THONG HODGES DWAINE T 780.4 DIZZINESS AND GIDDINESS 03/07/2011 THONG BUSINESS OPERATIONS MANAGER, DWAINE T 780.4 DIZZINESS AND GIDDINESS 03/07/2011 NEIDA TALBOT MD 780.4 DIZZINESS AND GIDDINESS 03/07/2011 780.4 DIZZINESS AND GIDDINESS 03/07/2011 DWAINE BENITO APRN T 780.4 DIZZINESS AND GIDDINESS 03/07/2011 DWAINE BENITO APRN T 780.4 DIZZINESS AND GIDDINESS 03/07/2011 DWAINE BENITO APRN T 780.4 DIZZINESS AND GIDDINESS 03/07/2011 DWAINE BENITO APRN T 780.4 DIZZINESS AND GIDDINESS 03/07/2011 DWAINE BENITO APRN T 780.4 DIZZINESS AND GIDDINESS 03/07/2011 NEIDA TALBOT MD 780.4 DIZZINESS AND GIDDINESS 03/07/2011 DWAINE BENITO APRN T 780.4 DIZZINESS AND GIDDINESS 03/07/2011 DWAINE BENITO APRN T 780.4 DIZZINESS AND GIDDINESS 03/07/2011 PRICE DO, GILBERTO K 780.4 DIZZINESS AND GIDDINESS 03/07/2011 THONG HODGES DWAINE T 780.4 DIZZINESS AND GIDDINESS 03/07/2011 THONG HODGES DWAINE T 780.4 DIZZINESS AND GIDDINESS 03/07/2011 DWAINE BENITO APRN T 780.4 DIZZINESS AND GIDDINESS 03/07/2011 DWAINE BENITO APRN T 780.4 DIZZINESS AND GIDDINESS 03/07/2011 DWAINE BENITO APRN T 780.4 DIZZINESS AND GIDDINESS 03/07/2011 PRICE DO, GILBERTO K 780.4 DIZZINESS AND GIDDINESS 03/07/2011 THONG HODGES DWAINE T 780.4 DIZZINESS AND GIDDINESS 03/07/2011 DWAINE BENITO APRN T 780.4 DIZZINESS AND GIDDINESS 03/07/2011 DWAINE BENITO APRN T 780.4 DIZZINESS AND GIDDINESS 03/07/2011 DWAINE BENITO APRN T 780.4 DIZZINESS AND GIDDINESS 03/07/2011 DWAINE BENITO APRN T 780.4 DIZZINESS AND GIDDINESS 03/07/2011 DWAINE BENITO APRN T 780.4 DIZZINESS AND GIDDINESS 03/07/2011 DWAINE BENITO APRN T 780.4 DIZZINESS AND GIDDINESS 03/07/2011 DWAINE BENITO APRN T 780.4 DIZZINESS AND GIDDINESS 03/07/2011 DWAINE BENITO APRN T 780.4 DIZZINESS AND GIDDINESS 03/07/2011 DWAINE BENITO APRN T 780.4 DIZZINESS AND GIDDINESS 04/02/2011 Ot 599.0 04/02/2011 Ot V53.6 06/18/2011 Ot 599.0 06/18/2011 Ot V53.6 10/20/2011 Ot 599.0 10/20/2011 Ot V53.6 12/04/2011 Ot 599.0 12/04/2011 Ot 709.8 12/05/2011 Ot 599.0 12/05/2011 Ot 788.1 02/03/2012 Ot 599.0 02/03/2012 Ot V53.6 03/06/2012 Ot 599.0 03/06/2012 Ot 709.8 07/23/2012 564.00 CONSTIPATION 07/23/2012 564.00 CONSTIPATION 07/23/2012 564.00 CONSTIPATION 07/23/2012 564.00 CONSTIPATION 07/23/2012 564.00 CONSTIPATION 07/23/2012 564.00 CONSTIPATION 07/23/2012 564.00 CONSTIPATION 07/23/2012 564.00 CONSTIPATION 07/23/2012 564.00 CONSTIPATION 07/23/2012 564.00 CONSTIPATION 07/23/2012 564.00 CONSTIPATION 07/23/2012 DWAINE BENITO APRN 564.00 CONSTIPATION 07/23/2012 DWAINE BENITO APRN T 564.00 CONSTIPATION 07/23/2012 NEIDA TALBOT MD 564.00 CONSTIPATION 07/23/2012 DWAINE BENITO APRN T 564.00 CONSTIPATION 07/23/2012 NEIDA TALBOT MD 564.00 CONSTIPATION 07/23/2012 DWAINE BENITO APRN 564.00 CONSTIPATION 07/23/2012 NEIDA TALBOT MD 564.00 CONSTIPATION 07/23/2012 DWAINE BENITO APRN 564.00 CONSTIPATION 07/23/2012 DWAINE BENITO APRN 564.00 CONSTIPATION 07/23/2012 DWAINE BENITO APRN 564.00 CONSTIPATION 07/23/2012 THNOG BUSINESS OPERATIONS MANAGER, DWAINE T 564.00 CONSTIPATION 07/23/2012 THONG BUSINESS OPERATIONS MANAGER, DWAINE T 564.00 CONSTIPATION 07/23/2012 THONG BUSINESS OPERATIONS MANAGER, DWAINE T 564.00 CONSTIPATION 07/23/2012 THONG BUSINESS OPERATIONS MANAGER, DWAINE T 564.00 CONSTIPATION 07/23/2012 THONG BUSINESS OPERATIONS MANAGER, DWAINE T 564.00 CONSTIPATION 07/23/2012 RAYMOND MORRISON, YE Robles 564.00 CONSTIPATION 07/23/2012 THONG BUSINESS OPERATIONS MANAGER, DWAINE T 564.00 CONSTIPATION 07/23/2012 THONG BUSINESS OPERATIONS MANAGER, DWAINE T 564.00 CONSTIPATION 07/23/2012 THONG BUSINESS OPERATIONS MANAGER, DWAINE T 564.00 CONSTIPATION 07/23/2012 THONG BUSINESS OPERATIONS MANAGER, DWAINE T 564.00 CONSTIPATION 07/23/2012 THONG BUSINESS OPERATIONS MANAGER, DWAINE T 564.00 CONSTIPATION 07/23/2012 THONG BUSINESS OPERATIONS MANAGER, DWAINE T 564.00 CONSTIPATION 07/23/2012 THONG BUSINESS OPERATIONS MANAGER, DWAINE T 564.00 CONSTIPATION 07/23/2012 THONG BUSINESS OPERATIONS MANAGER, DWAINE T 564.00 CONSTIPATION 07/23/2012 THONG BUSINESS OPERATIONS MANAGER, DWAINE T 564.00 CONSTIPATION 07/23/2012 NEIDA TALBOT MD 564.00 CONSTIPATION 07/23/2012 THONG BUSINESS OPERATIONS MANAGER, DWAINE T 564.00 CONSTIPATION 07/23/2012 THONG BUSINESS OPERATIONS MANAGER, DWAINE T 564.00 CONSTIPATION 07/23/2012 THONG BUSINESS OPERATIONS MANAGER, DWAINE T 564.00 CONSTIPATION 07/23/2012 THONG BUSINESS OPERATIONS MANAGER, DWAINE T 564.00 CONSTIPATION 07/23/2012 THONG BUSINESS OPERATIONS MANAGER, DWAINE T 564.00 CONSTIPATION 07/23/2012 THONG BUSINESS OPERATIONS MANAGER, DWAINE T 564.00 CONSTIPATION 07/23/2012 THONG BUSINESS OPERATIONS MANAGER, DWAINE T 564.00 CONSTIPATION 07/23/2012 NEIDA TALBOT MD4.00 CONSTIPATION 07/23/2012 564.00 CONSTIPATION 07/23/2012 THONG BUSINESS OPERATIONS MANAGER, DWAINE T 564.00 CONSTIPATION 07/23/2012 THONG BUSINESS OPERATIONS MANAGER, DWAINE T 564.00 CONSTIPATION 07/23/2012 THONG BUSINESS OPERATIONS MANAGER, DWAINE T 564.00 CONSTIPATION 07/23/2012 THONG BUSINESS OPERATIONS MANAGER, DWAINE T 564.00 CONSTIPATION 07/23/2012 THONG BUSINESS OPERATIONS MANAGER, DWAINE T 564.00 CONSTIPATION 07/23/2012 NEIDA TALBOT MD4.00 CONSTIPATION 07/23/2012 THONG BUSINESS OPERATIONS MANAGER, DWAINE T 564.00 CONSTIPATION 07/23/2012 THONG BUSINESS OPERATIONS MANAGER, DWAINE T 564.00 CONSTIPATION 07/23/2012 PRICE DO, GILBERTO K 564.00 CONSTIPATION 07/23/2012 THONG BUSINESS OPERATIONS MANAGER, DWAINE T 564.00 CONSTIPATION 07/23/2012 THONG BUSINESS OPERATIONS MANAGER, DWAINE T 564.00 CONSTIPATION 07/23/2012 THONG BUSINESS OPERATIONS MANAGER, DWAINE T 564.00 CONSTIPATION 07/23/2012 THONG BUSINESS OPERATIONS MANAGER, DWAINE T 564.00 CONSTIPATION 07/23/2012 PRICE DO, GILBERTO K 564.00 CONSTIPATION 07/23/2012 THONG BUSINESS OPERATIONS MANAGER, DWAINE T 564.00 CONSTIPATION 07/23/2012 THONG BUSINESS OPERATIONS MANAGER, DWAINE T 564.00 CONSTIPATION 07/23/2012 THONG BUSINESS OPERATIONS MANAGER, DWAINE T 564.00 CONSTIPATION 07/23/2012 THONG BUSINESS OPERATIONS MANAGER, DWAINE T 564.00 CONSTIPATION 07/23/2012 THONG BUSINESS OPERATIONS MANAGER, DWAINE T 564.00 CONSTIPATION 07/23/2012 THONG BUSINESS OPERATIONS MANAGER, DWAINE T 564.00 CONSTIPATION 07/23/2012 THONG BUSINESS OPERATIONS MANAGER, DWAINE T 564.00 CONSTIPATION 07/23/2012 THONG BUSINESS OPERATIONS MANAGER, DWAINE T 564.00 CONSTIPATION 07/23/2012 THONG BUSINESS OPERATIONS MANAGER, DWAINE T 564.00 CONSTIPATION 07/23/2012 THONG BUSINESS OPERATIONS MANAGER, DWAINE T 564.00 CONSTIPATION 08/11/2012 E879.6 URINARY CATHETERIZATION THE CAUSE OF ABNORMAL REACTION OF PATIENT OR OF LATER COMPLICATION WITHOUT MISADVENTURE AT TIME OF PROCED 08/11/2012 E879.6 URINARY CATHETERIZATION THE CAUSE OF ABNORMAL REACTION OF PATIENT OR OF LATER COMPLICATION WITHOUT MISADVENTURE AT TIME OF PROCED 08/11/2012 E879.6 URINARY CATHETERIZATION THE CAUSE OF ABNORMAL REACTION OF PATIENT OR OF LATER COMPLICATION WITHOUT MISADVENTURE AT TIME OF PROCED 08/11/2012 E879.6 URINARY CATHETERIZATION THE CAUSE OF ABNORMAL REACTION OF PATIENT OR OF LATER COMPLICATION WITHOUT MISADVENTURE AT TIME OF PROCED 08/11/2012 E879.6 URINARY CATHETERIZATION THE CAUSE OF ABNORMAL REACTION OF PATIENT OR OF LATER COMPLICATION WITHOUT MISADVENTURE AT TIME OF PROCED 08/11/2012 E879.6 URINARY CATHETERIZATION THE CAUSE OF ABNORMAL REACTION OF PATIENT OR OF LATER COMPLICATION WITHOUT MISADVENTURE AT TIME OF PROCED 08/11/2012 E879.6 URINARY CATHETERIZATION THE CAUSE OF ABNORMAL REACTION OF PATIENT OR OF LATER COMPLICATION WITHOUT MISADVENTURE AT TIME OF PROCED 08/11/2012 E879.6 URINARY CATHETERIZATION THE CAUSE OF ABNORMAL REACTION OF PATIENT OR OF LATER COMPLICATION WITHOUT MISADVENTURE AT TIME OF PROCED 08/11/2012 E879.6 URINARY CATHETERIZATION THE CAUSE OF ABNORMAL REACTION OF PATIENT OR OF LATER COMPLICATION WITHOUT MISADVENTURE AT TIME OF PROCED 08/11/2012 DWAINE BENITO APRN E879.6 URINARY CATHETERIZATION THE CAUSE OF ABNORMAL REACTION OF PATIENT OR OF LATER COMPLICATION WITHOUT MISADVENTURE AT TIME OF PROCED 08/11/2012 DWAINE BENITO APRN E879.6 URINARY CATHETERIZATION THE CAUSE OF ABNORMAL REACTION OF PATIENT OR OF LATER COMPLICATION WITHOUT MISADVENTURE AT TIME OF PROCED 08/11/2012 NEIDA TALBOT MD E879.6 URINARY CATHETERIZATION THE CAUSE OF ABNORMAL REACTION OF PATIENT OR OF LATER COMPLICATION WITHOUT MISADVENTURE AT TIME OF PROCED 08/11/2012 DWAINE BENITO APRN E879.6 URINARY CATHETERIZATION THE CAUSE OF ABNORMAL REACTION OF PATIENT OR OF LATER COMPLICATION WITHOUT MISADVENTURE AT TIME OF PROCED 08/11/2012 NEIDA TALBOT MD E879.6 URINARY CATHETERIZATION THE CAUSE OF ABNORMAL REACTION OF PATIENT OR OF LATER COMPLICATION WITHOUT MISADVENTURE AT TIME OF PROCED 08/11/2012 DWAINE BENITO APRN E879.6 URINARY CATHETERIZATION THE CAUSE OF ABNORMAL REACTION OF PATIENT OR OF LATER COMPLICATION WITHOUT MISADVENTURE AT TIME OF PROCED 08/11/2012 NEIDA TALBOT MD E879.6 URINARY CATHETERIZATION THE CAUSE OF ABNORMAL REACTION OF PATIENT OR OF LATER COMPLICATION WITHOUT MISADVENTURE AT TIME OF PROCED 08/11/2012 DWAINE BENITO APRN E879.6 URINARY CATHETERIZATION THE CAUSE OF ABNORMAL REACTION OF PATIENT OR OF LATER COMPLICATION WITHOUT MISADVENTURE AT TIME OF PROCED 08/11/2012 DWAINE BENITO APRN E879.6 URINARY CATHETERIZATION THE CAUSE OF ABNORMAL REACTION OF PATIENT OR OF LATER COMPLICATION WITHOUT MISADVENTURE AT TIME OF PROCED 08/11/2012 DWAINE BENITO APRN E879.6 URINARY CATHETERIZATION THE CAUSE OF ABNORMAL REACTION OF PATIENT OR OF LATER COMPLICATION WITHOUT MISADVENTURE AT TIME OF PROCED 08/11/2012 DWAINE BENITO APRN E879.6 URINARY CATHETERIZATION THE CAUSE OF ABNORMAL REACTION OF PATIENT OR OF LATER COMPLICATION WITHOUT MISADVENTURE AT TIME OF PROCED 08/11/2012 DWAINE BENITO APRN E879.6 URINARY CATHETERIZATION THE CAUSE OF ABNORMAL REACTION OF PATIENT OR OF LATER COMPLICATION WITHOUT MISADVENTURE AT TIME OF PROCED 08/11/2012 DWAINE BENITO APRN E879.6 URINARY CATHETERIZATION THE CAUSE OF ABNORMAL REACTION OF PATIENT OR OF LATER COMPLICATION WITHOUT MISADVENTURE AT TIME OF PROCED 08/11/2012 DWAINE BENITO APRN T E879.6 URINARY CATHETERIZATION THE CAUSE OF ABNORMAL REACTION OF PATIENT OR OF LATER COMPLICATION WITHOUT MISADVENTURE AT TIME OF PROCED 08/11/2012 DWAINE BENITO APRN T E879.6 URINARY CATHETERIZATION THE CAUSE OF ABNORMAL REACTION OF PATIENT OR OF LATER COMPLICATION WITHOUT MISADVENTURE AT TIME OF PROCED 08/11/2012 RAYMOND MORRISON, YE Robles E879.6 URINARY CATHETERIZATION THE CAUSE OF ABNORMAL REACTION OF PATIENT OR OF LATER COMPLICATION WITHOUT MISADVENTURE AT TIME OF PROCED 08/11/2012 DWAINE BENITO APRN E879.6 URINARY CATHETERIZATION THE CAUSE OF ABNORMAL REACTION OF PATIENT OR OF LATER COMPLICATION WITHOUT MISADVENTURE AT TIME OF PROCED 08/11/2012 DWAINE BENITO APRN E879.6 URINARY CATHETERIZATION THE CAUSE OF ABNORMAL REACTION OF PATIENT OR OF LATER COMPLICATION WITHOUT MISADVENTURE AT TIME OF PROCED 08/11/2012 DWAINE BENITO APRN T E879.6 URINARY CATHETERIZATION THE CAUSE OF ABNORMAL REACTION OF PATIENT OR OF LATER COMPLICATION WITHOUT MISADVENTURE AT TIME OF PROCED 08/11/2012 DWAINE BENITO APRN T E879.6 URINARY CATHETERIZATION THE CAUSE OF ABNORMAL REACTION OF PATIENT OR OF LATER COMPLICATION WITHOUT MISADVENTURE AT TIME OF PROCED 08/11/2012 DWAINE BENITO APRN T E879.6 URINARY CATHETERIZATION THE CAUSE OF ABNORMAL REACTION OF PATIENT OR OF LATER COMPLICATION WITHOUT MISADVENTURE AT TIME OF PROCED 08/11/2012 DWAINE BENITO APRN T E879.6 URINARY CATHETERIZATION THE CAUSE OF ABNORMAL REACTION OF PATIENT OR OF LATER COMPLICATION WITHOUT MISADVENTURE AT TIME OF PROCED 08/11/2012 DWAINE BENITO APRN T E879.6 URINARY CATHETERIZATION THE CAUSE OF ABNORMAL REACTION OF PATIENT OR OF LATER COMPLICATION WITHOUT MISADVENTURE AT TIME OF PROCED 08/11/2012 DWAINE BENITO APRN T E879.6 URINARY CATHETERIZATION THE CAUSE OF ABNORMAL REACTION OF PATIENT OR OF LATER COMPLICATION WITHOUT MISADVENTURE AT TIME OF PROCED 08/11/2012 DWAINE BENITO APRN T E879.6 URINARY CATHETERIZATION THE CAUSE OF ABNORMAL REACTION OF PATIENT OR OF LATER COMPLICATION WITHOUT MISADVENTURE AT TIME OF PROCED 08/11/2012 NEIDA TALBOT MD E879.6 URINARY CATHETERIZATION THE CAUSE OF ABNORMAL REACTION OF PATIENT OR OF LATER COMPLICATION WITHOUT MISADVENTURE AT TIME OF PROCED 08/11/2012 DWAINE BENITO APRN E879.6 URINARY CATHETERIZATION THE CAUSE OF ABNORMAL REACTION OF PATIENT OR OF LATER COMPLICATION WITHOUT MISADVENTURE AT TIME OF PROCED 08/11/2012 DWAINE BENITO APRN E879.6 URINARY CATHETERIZATION THE CAUSE OF ABNORMAL REACTION OF PATIENT OR OF LATER COMPLICATION WITHOUT MISADVENTURE AT TIME OF PROCED 08/11/2012 DWAINE BENITO APRN E879.6 URINARY CATHETERIZATION THE CAUSE OF ABNORMAL REACTION OF PATIENT OR OF LATER COMPLICATION WITHOUT MISADVENTURE AT TIME OF PROCED 08/11/2012 DWAINE BENITO APRN E879.6 URINARY CATHETERIZATION THE CAUSE OF ABNORMAL REACTION OF PATIENT OR OF LATER COMPLICATION WITHOUT MISADVENTURE AT TIME OF PROCED 08/11/2012 DWAINE BENITO APRN E879.6 URINARY CATHETERIZATION THE CAUSE OF ABNORMAL REACTION OF PATIENT OR OF LATER COMPLICATION WITHOUT MISADVENTURE AT TIME OF PROCED 08/11/2012 DWAINE BENITO APRN E879.6 URINARY CATHETERIZATION THE CAUSE OF ABNORMAL REACTION OF PATIENT OR OF LATER COMPLICATION WITHOUT MISADVENTURE AT TIME OF PROCED 08/11/2012 DWAINE BENITO APRN E879.6 URINARY CATHETERIZATION THE CAUSE OF ABNORMAL REACTION OF PATIENT OR OF LATER COMPLICATION WITHOUT MISADVENTURE AT TIME OF PROCED 08/11/2012 NEIDA TALBOT MD E879.6 URINARY CATHETERIZATION THE CAUSE OF ABNORMAL REACTION OF PATIENT OR OF LATER COMPLICATION WITHOUT MISADVENTURE AT TIME OF PROCED 08/11/2012 E879.6 URINARY CATHETERIZATION THE CAUSE OF ABNORMAL REACTION OF PATIENT OR OF LATER COMPLICATION WITHOUT MISADVENTURE AT TIME OF PROCED 08/11/2012 DWAINE BENITO APRN E879.6 URINARY CATHETERIZATION THE CAUSE OF ABNORMAL REACTION OF PATIENT OR OF LATER COMPLICATION WITHOUT MISADVENTURE AT TIME OF PROCED 08/11/2012 DWAINE BENITO APRN E879.6 URINARY CATHETERIZATION THE CAUSE OF ABNORMAL REACTION OF PATIENT OR OF LATER COMPLICATION WITHOUT MISADVENTURE AT TIME OF PROCED 08/11/2012 DWAINE BENITO APRN E879.6 URINARY CATHETERIZATION THE CAUSE OF ABNORMAL REACTION OF PATIENT OR OF LATER COMPLICATION WITHOUT MISADVENTURE AT TIME OF PROCED 08/11/2012 DWAINE BENITO APRN E879.6 URINARY CATHETERIZATION THE CAUSE OF ABNORMAL REACTION OF PATIENT OR OF LATER COMPLICATION WITHOUT MISADVENTURE AT TIME OF PROCED 08/11/2012 DWAINE BENITO APRN E879.6 URINARY CATHETERIZATION THE CAUSE OF ABNORMAL REACTION OF PATIENT OR OF LATER COMPLICATION WITHOUT MISADVENTURE AT TIME OF PROCED 08/11/2012 NEIDA TALBOT MD E879.6 URINARY CATHETERIZATION THE CAUSE OF ABNORMAL REACTION OF PATIENT OR OF LATER COMPLICATION WITHOUT MISADVENTURE AT TIME OF PROCED 08/11/2012 DWAINE BENITO APRN E879.6 URINARY CATHETERIZATION THE CAUSE OF ABNORMAL REACTION OF PATIENT OR OF LATER COMPLICATION WITHOUT MISADVENTURE AT TIME OF PROCED 08/11/2012 DWAINE BENITO APRN E879.6 URINARY CATHETERIZATION THE CAUSE OF ABNORMAL REACTION OF PATIENT OR OF LATER COMPLICATION WITHOUT MISADVENTURE AT TIME OF PROCED 08/11/2012 GILBERTO PRICE DO E879.6 URINARY CATHETERIZATION THE CAUSE OF ABNORMAL REACTION OF PATIENT OR OF LATER COMPLICATION WITHOUT MISADVENTURE AT TIME OF PROCED 08/11/2012 DWAINE BENITO APRN E879.6 URINARY CATHETERIZATION THE CAUSE OF ABNORMAL REACTION OF PATIENT OR OF LATER COMPLICATION WITHOUT MISADVENTURE AT TIME OF PROCED 08/11/2012 DWAINE BENITO APRN E879.6 URINARY CATHETERIZATION THE CAUSE OF ABNORMAL REACTION OF PATIENT OR OF LATER COMPLICATION WITHOUT MISADVENTURE AT TIME OF PROCED 08/11/2012 DWAINE BENITO APRN E879.6 URINARY CATHETERIZATION THE CAUSE OF ABNORMAL REACTION OF PATIENT OR OF LATER COMPLICATION WITHOUT MISADVENTURE AT TIME OF PROCED 08/11/2012 DWAINE BENITO APRN E879.6 URINARY CATHETERIZATION THE CAUSE OF ABNORMAL REACTION OF PATIENT OR OF LATER COMPLICATION WITHOUT MISADVENTURE AT TIME OF PROCED 08/11/2012 GILBERTO PRICE DO E879.6 URINARY CATHETERIZATION THE CAUSE OF ABNORMAL REACTION OF PATIENT OR OF LATER COMPLICATION WITHOUT MISADVENTURE AT TIME OF PROCED 08/11/2012 DWAINE BENITO APRN E879.6 URINARY CATHETERIZATION THE CAUSE OF ABNORMAL REACTION OF PATIENT OR OF LATER COMPLICATION WITHOUT MISADVENTURE AT TIME OF PROCED 08/11/2012 DWAINE BENITO APRN E879.6 URINARY CATHETERIZATION THE CAUSE OF ABNORMAL REACTION OF PATIENT OR OF LATER COMPLICATION WITHOUT MISADVENTURE AT TIME OF PROCED 08/11/2012 DWAINE BENITO APRN E879.6 URINARY CATHETERIZATION THE CAUSE OF ABNORMAL REACTION OF PATIENT OR OF LATER COMPLICATION WITHOUT MISADVENTURE AT TIME OF PROCED 08/11/2012 DWAINE BENITO APRN T E879.6 URINARY CATHETERIZATION THE CAUSE OF ABNORMAL REACTION OF PATIENT OR OF LATER COMPLICATION WITHOUT MISADVENTURE AT TIME OF PROCED 08/11/2012 DWAINE BENITO APRN E879.6 URINARY CATHETERIZATION THE CAUSE OF ABNORMAL REACTION OF PATIENT OR OF LATER COMPLICATION WITHOUT MISADVENTURE AT TIME OF PROCED 08/11/2012 DWAINE BENITO APRN E879.6 URINARY CATHETERIZATION THE CAUSE OF ABNORMAL REACTION OF PATIENT OR OF LATER COMPLICATION WITHOUT MISADVENTURE AT TIME OF PROCED 08/11/2012 DWAINE BENITO APRN E879.6 URINARY CATHETERIZATION THE CAUSE OF ABNORMAL REACTION OF PATIENT OR OF LATER COMPLICATION WITHOUT MISADVENTURE AT TIME OF PROCED 08/11/2012 DWAINE BENITO APRN E879.6 URINARY CATHETERIZATION THE CAUSE OF ABNORMAL REACTION OF PATIENT OR OF LATER COMPLICATION WITHOUT MISADVENTURE AT TIME OF PROCED 08/11/2012 DWAINE BENITO APRN E879.6 URINARY CATHETERIZATION THE CAUSE OF ABNORMAL REACTION OF PATIENT OR OF LATER COMPLICATION WITHOUT MISADVENTURE AT TIME OF PROCED 08/11/2012 DWAINE BENITO APRN T E879.6 URINARY CATHETERIZATION THE CAUSE OF ABNORMAL REACTION OF PATIENT OR OF LATER COMPLICATION WITHOUT MISADVENTURE AT TIME OF PROCED 09/13/2012 724.3 SCIATICA 09/13/2012 724.3 SCIATICA 09/13/2012 724.3 SCIATICA 09/13/2012 724.3 SCIATICA 09/13/2012 724.3 SCIATICA 09/13/2012 724.3 SCIATICA 09/13/2012 DWAINE BENITO APRN 724.3 SCIATICA 09/13/2012 DWAINE BENITO APRN 724.3 SCIATICA 09/13/2012 NEIDA TALBOT MD 724.3 SCIATICA 09/13/2012 DWAINE BENITO APRN 724.3 SCIATICA 09/13/2012 NEIDA TALBOT MD 724.3 SCIATICA 09/13/2012 DWAINE BENITO APRN 724.3 SCIATICA 09/13/2012 NEIDA TALBOT MD 724.3 SCIATICA 09/13/2012 DWAINE BENITO APRN 724.3 SCIATICA 09/13/2012 THONG BUSINESS OPERATIONS MANAGER, DWAINE T 724.3 SCIATICA 09/13/2012 THONG BUSINESS OPERATIONS MANAGER, DWAINE T 724.3 SCIATICA 09/13/2012 THONG BUSINESS OPERATIONS MANAGER, DWAINE T 724.3 SCIATICA 09/13/2012 THONG BUSINESS OPERATIONS MANAGER, DWAINE T 724.3 SCIATICA 09/13/2012 THONG BUSINESS OPERATIONS MANAGER, DWAINE T 724.3 SCIATICA 09/13/2012 THONG BUSINESS OPERATIONS MANAGER, DWAINE T 724.3 SCIATICA 09/13/2012 THONG SAAVEDRAN, DWAINE T 724.3 SCIATICA 09/13/2012 RAYMOND MORRISON, YE Robles 724.3 SCIATICA 09/13/2012 THONG BUSINESS OPERATIONS MANAGER, DWAINE T 724.3 SCIATICA 09/13/2012 THONG SAAVEDRAN, DWAINE T 724.3 SCIATICA 09/13/2012 THONG SAAVEDRAN, DWAINE T 724.3 SCIATICA 09/13/2012 THONG SAAVEDRAN, DWAINE T 724.3 SCIATICA 09/13/2012 THONG HODGES, DWAINE T 724.3 SCIATICA 09/13/2012 THONG SAAVEDRAN, DWAINE T 724.3 SCIATICA 09/13/2012 THONG SAAVEDRAN, DWAINE T 724.3 SCIATICA 09/13/2012 THONG SAAVEDRAN, DWAINE T 724.3 SCIATICA 09/13/2012 THONG HODGES, DWAINE T 724.3 SCIATICA 09/13/2012 ANTIONE MORRISON, NEIDA 724.3 SCIATICA 09/13/2012 THONG HODGES, DWAINE T 724.3 SCIATICA 09/13/2012 THONG HODGES, DWAINE T 724.3 SCIATICA 09/13/2012 THONG SAAVEDRAN, DWAINE T 724.3 SCIATICA 09/13/2012 THONG SAAVEDRAN, DWAINE T 724.3 SCIATICA 09/13/2012 THONG SAAVEDRAN, DWAINE T 724.3 SCIATICA 09/13/2012 THONG SAAVEDRAN, DWAINE T 724.3 SCIATICA 09/13/2012 THONG HODGES, DWAINE T 724.3 SCIATICA 09/13/2012 ANTIONE MORRISON, NEIDA 724.3 SCIATICA 09/13/2012 724.3 SCIATICA 09/13/2012 THONG HODGES, DWAINE T 724.3 SCIATICA 09/13/2012 THONG HODGES, DWAINE T 724.3 SCIATICA 09/13/2012 THONG BUSINESS OPERATIONS MANAGER, DWAINE T 724.3 SCIATICA 09/13/2012 THONG SAAVEDRAN, DWAINE T 724.3 SCIATICA 09/13/2012 THONG SAAVEDRAN, DWAINE T 724.3 SCIATICA 09/13/2012 NEIDA TALBOT MD 724.3 SCIATICA 09/13/2012 THONG SAAVEDRAN, DWAINE T 724.3 SCIATICA 09/13/2012 THONG SAAVEDRAN, DWAINE T 724.3 SCIATICA 09/13/2012 PRICE DO, GILBERTO K 724.3 SCIATICA 09/13/2012 THONG SAAVEDRAN, DWAINE T 724.3 SCIATICA 09/13/2012 THONG SAAVEDRAN, DWAINE T 724.3 SCIATICA 09/13/2012 THONG SAAVEDRAN, DWAINE T 724.3 SCIATICA 09/13/2012 THONG SAAVEDRAN, DWAINE T 724.3 SCIATICA 09/13/2012 PRICE DO, GILBERTO K 724.3 SCIATICA 09/13/2012 THONG SAAVEDRAN, DWAINE T 724.3 SCIATICA 09/13/2012 THONG SAAVEDRAN, DWAINE T 724.3 SCIATICA 09/13/2012 THONG SAAVEDRAN, DWAINE T 724.3 SCIATICA 09/13/2012 THONG SAAVEDRAN, DWAINE T 724.3 SCIATICA 09/13/2012 THONG SAAVEDRAN, DWAINE T 724.3 SCIATICA 09/13/2012 THONG SAAVEDRAN, DWAINE T 724.3 SCIATICA 09/13/2012 THONG SAAVEDRAN, DWAINE T 724.3 SCIATICA 09/13/2012 THONG SAAVEDRAN, DWAINE T 724.3 SCIATICA 09/13/2012 THONG HODGES, DWAINE T 724.3 SCIATICA 09/13/2012 THONG HODGES, DWAINE T 724.3 SCIATICA 11/30/2012 V76.12 MAMMOGRAM SCREENING 11/30/2012 V76.12 MAMMOGRAM SCREENING 11/30/2012 THONG HODGES, DWAINE T V76.12 MAMMOGRAM SCREENING 11/30/2012 DWAINE BENITO APRN T V76.12 MAMMOGRAM SCREENING 11/30/2012 NEIDA TALBOT MD V76.12 MAMMOGRAM SCREENING 11/30/2012 DWAINE BENITO APRN T V76.12 MAMMOGRAM SCREENING 11/30/2012 NEIDA TALBOT MD V76.12 MAMMOGRAM SCREENING 11/30/2012 DWAINE BENITO APRN T V76.12 MAMMOGRAM SCREENING 11/30/2012 ANTIONE MORRISON, NEIDA V76.12 MAMMOGRAM SCREENING 11/30/2012 THONG BUSINESS OPERATIONS MANAGER, DWAINE T V76.12 MAMMOGRAM SCREENING 11/30/2012 THONG BUSINESS OPERATIONS MANAGER, DWAINE T V76.12 MAMMOGRAM SCREENING 11/30/2012 THONG BUSINESS OPERATIONS MANAGER, DWAINE T V76.12 MAMMOGRAM SCREENING 11/30/2012 THONG BUSINESS OPERATIONS MANAGER, DWAINE T V76.12 MAMMOGRAM SCREENING 11/30/2012 THONG BUSINESS OPERATIONS MANAGER, DWAINE T V76.12 MAMMOGRAM SCREENING 11/30/2012 THONG BUSINESS OPERATIONS MANAGER, DWAINE T V76.12 MAMMOGRAM SCREENING 11/30/2012 THONG BUSINESS OPERATIONS MANAGER, DWAINE T V76.12 MAMMOGRAM SCREENING 11/30/2012 TOHNG BUSINESS OPERATIONS MANAGER, DWAINE T V76.12 MAMMOGRAM SCREENING 11/30/2012 RAYMOND MORRISON, YE Robles V76.12 MAMMOGRAM SCREENING 11/30/2012 THONG BUSINESS OPERATIONS MANAGER, DWAINE T V76.12 MAMMOGRAM SCREENING 11/30/2012 THONG BUSINESS OPERATIONS MANAGER, DWAINE T V76.12 MAMMOGRAM SCREENING 11/30/2012 THONG BUSINESS OPERATIONS MANAGER, DWAINE T V76.12 MAMMOGRAM SCREENING 11/30/2012 THONG BUSINESS OPERATIONS MANAGER, DWAINE T V76.12 MAMMOGRAM SCREENING 11/30/2012 THONG BUSINESS OPERATIONS MANAGER, DWAINE T V76.12 MAMMOGRAM SCREENING 11/30/2012 THONG BUSINESS OPERATIONS MANAGER, DWAINE T V76.12 MAMMOGRAM SCREENING 11/30/2012 THONG BUSINESS OPERATIONS MANAGER, DWAINE T V76.12 MAMMOGRAM SCREENING 11/30/2012 THONG BUSINESS OPERATIONS MANAGER, DWAINE T V76.12 MAMMOGRAM SCREENING 11/30/2012 THONG BUSINESS OPERATIONS MANAGER, DWAINE T V76.12 MAMMOGRAM SCREENING 11/30/2012 ANTIONE MORRISON, NEIDA V76.12 MAMMOGRAM SCREENING 11/30/2012 THONG BUSINESS OPERATIONS MANAGER, DWAINE T V76.12 MAMMOGRAM SCREENING 11/30/2012 THONG BUSINESS OPERATIONS MANAGER, DWAINE T V76.12 MAMMOGRAM SCREENING 11/30/2012 THONG BUSINESS OPERATIONS MANAGER, DWAINE T V76.12 MAMMOGRAM SCREENING 11/30/2012 THONG BUSINESS OPERATIONS MANAGER, DWAINE T V76.12 MAMMOGRAM SCREENING 11/30/2012 THONG BUSINESS OPERATIONS MANAGER, DWAINE T V76.12 MAMMOGRAM SCREENING 11/30/2012 THONG BUSINESS OPERATIONS MANAGER, DWAINE T V76.12 MAMMOGRAM SCREENING 11/30/2012 THONG BUSINESS OPERATIONS MANAGER, DWAINE T V76.12 MAMMOGRAM SCREENING 11/30/2012 ANTIONE MORRISON, NEIDA V76.12 MAMMOGRAM SCREENING 11/30/2012 V76.12 MAMMOGRAM SCREENING 11/30/2012 THONG BUSINESS OPERATIONS MANAGER, DWAINE T V76.12 MAMMOGRAM SCREENING 11/30/2012 THONG BUSINESS OPERATIONS MANAGER, DWAINE T V76.12 MAMMOGRAM SCREENING 11/30/2012 THONG BUSINESS OPERATIONS MANAGER, DWAINE T V76.12 MAMMOGRAM SCREENING 11/30/2012 THONG BUSINESS OPERATIONS MANAGER, DWAINE T V76.12 MAMMOGRAM SCREENING 11/30/2012 THONG BUSINESS OPERATIONS MANAGER, DWAINE T V76.12 MAMMOGRAM SCREENING 11/30/2012 NEIDA TALBOT MD V76.12 MAMMOGRAM SCREENING 11/30/2012 THONG BUSINESS OPERATIONS MANAGER, DWAINE T V76.12 MAMMOGRAM SCREENING 11/30/2012 THONG BUSINESS OPERATIONS MANAGER, DWAINE T V76.12 MAMMOGRAM SCREENING 11/30/2012 PRICE DO, GILBERTO K V76.12 MAMMOGRAM SCREENING 11/30/2012 HTONG BUSINESS OPERATIONS MANAGER, DWAINE T V76.12 MAMMOGRAM SCREENING 11/30/2012 THONG BUSINESS OPERATIONS MANAGER, DWAINE T V76.12 MAMMOGRAM SCREENING 11/30/2012 THONG BUSINESS OPERATIONS MANAGER, DWANIE T V76.12 MAMMOGRAM SCREENING 11/30/2012 THONG BUSINESS OPERATIONS MANAGER, DWAINE T V76.12 MAMMOGRAM SCREENING 11/30/2012 PRICE DO, GILBERTO K V76.12 MAMMOGRAM SCREENING 11/30/2012 THONG BUSINESS OPERATIONS MANAGER, DWAINE T V76.12 MAMMOGRAM SCREENING 11/30/2012 THONG BUSINESS OPERATIONS MANAGER, DWAINE T V76.12 MAMMOGRAM SCREENING 11/30/2012 THONG BUSINESS OPERATIONS MANAGER, DWAINE T V76.12 MAMMOGRAM SCREENING 11/30/2012 THONG BUSINESS OPERATIONS MANAGER, DWAINE T V76.12 MAMMOGRAM SCREENING 11/30/2012 THONG BUSINESS OPERATIONS MANAGER, DWAINE T V76.12 MAMMOGRAM SCREENING 11/30/2012 THONG BUSINESS OPERATIONS MANAGER, DWAINE T V76.12 MAMMOGRAM SCREENING 11/30/2012 THONG BUSINESS OPERATIONS MANAGER, DWAINE T V76.12 MAMMOGRAM SCREENING 11/30/2012 THONG BUSINESS OPERATIONS MANAGER, DWAINE T V76.12 MAMMOGRAM SCREENING 11/30/2012 THONG BUSINESS OPERATIONS MANAGER, DWAINE T V76.12 MAMMOGRAM SCREENING 11/30/2012 THONG BUSINESS OPERATIONS MANAGER, DWAINE T V76.12 MAMMOGRAM SCREENING 01/27/2013 NEIDA TALBOT MD 465.9 UPPER RESPIRATORY INFECTION 01/27/2013 THONG HODGES, DWAINE Rushing 465.9 UPPER RESPIRATORY INFECTION 01/27/2013 NEIDA TALBOT MD 465.9 UPPER RESPIRATORY INFECTION 01/27/2013 THONG BUSINESS OPERATIONS MANAGER, DWAINE T 465.9 UPPER RESPIRATORY INFECTION 01/27/2013 NEIDA TALBOT MD 465.9 UPPER RESPIRATORY INFECTION 01/27/2013 THONG BUSINESS OPERATIONS MANAGER, DWAINE T 465.9 UPPER RESPIRATORY INFECTION 01/27/2013 THONG BUSINESS OPERATIONS MANAGER, DWAINE T 465.9 UPPER RESPIRATORY INFECTION 01/27/2013 THONG BUSINESS OPERATIONS MANAGER, DWAINE T 465.9 UPPER RESPIRATORY INFECTION 01/27/2013 THONG BUSINESS OPERATIONS MANAGER, DWAINE T 465.9 UPPER RESPIRATORY INFECTION 01/27/2013 THONG BUSINESS OPERATIONS MANAGER, DWAINE T 465.9 UPPER RESPIRATORY INFECTION 01/27/2013 THONG BUSINESS OPERATIONS MANAGER, DWAINE T 465.9 UPPER RESPIRATORY INFECTION 01/27/2013 THONG BUSINESS OPERATIONS MANAGER, DWAINE T 465.9 UPPER RESPIRATORY INFECTION 01/27/2013 THONG BUSINESS OPERATIONS MANAGER, DWAINE T 465.9 UPPER RESPIRATORY INFECTION 01/27/2013 RAYMOND MORRISON, YE Robles 465.9 UPPER RESPIRATORY INFECTION 01/27/2013 THONG BUSINESS OPERATIONS MANAGER, DWAINE T 465.9 UPPER RESPIRATORY INFECTION 01/27/2013 THONG BUSINESS OPERATIONS MANAGER, DWAINE T 465.9 UPPER RESPIRATORY INFECTION 01/27/2013 THONG BUSINESS OPERATIONS MANAGER, DWAINE T 465.9 UPPER RESPIRATORY INFECTION 01/27/2013 THONG BUSINESS OPERATIONS MANAGER, DWAINE T 465.9 UPPER RESPIRATORY INFECTION 01/27/2013 THONG BUSINESS OPERATIONS MANAGER, DWAINE T 465.9 UPPER RESPIRATORY INFECTION 01/27/2013 THONG BUSINESS OPERATIONS MANAGER, DWAINE T 465.9 UPPER RESPIRATORY INFECTION 01/27/2013 THONG BUSINESS OPERATIONS MANAGER, DWAINE T 465.9 UPPER RESPIRATORY INFECTION 01/27/2013 THONG BUSINESS OPERATIONS MANAGER, DWAINE T 465.9 UPPER RESPIRATORY INFECTION 01/27/2013 THONG BUSINESS OPERATIONS MANAGER, DWAINE T 465.9 UPPER RESPIRATORY INFECTION 01/27/2013 NEIDA TALBOT MD 465.9 UPPER RESPIRATORY INFECTION 01/27/2013 THONG BUSINESS OPERATIONS MANAGER, DWAINE T 465.9 UPPER RESPIRATORY INFECTION 01/27/2013 THONG BUSINESS OPERATIONS MANAGER, DWAINE T 465.9 UPPER RESPIRATORY INFECTION 01/27/2013 THONG BUSINESS OPERATIONS MANAGER, DWAINE T 465.9 UPPER RESPIRATORY INFECTION 01/27/2013 THONG BUSINESS OPERATIONS MANAGER, DWAINE T 465.9 UPPER RESPIRATORY INFECTION 01/27/2013 THONG BUSINESS OPERATIONS MANAGER, DWAINE T 465.9 UPPER RESPIRATORY INFECTION 01/27/2013 THONG BUSINESS OPERATIONS MANAGER, DWAINE T 465.9 UPPER RESPIRATORY INFECTION 01/27/2013 THONG BUSINESS OPERATIONS MANAGER, DWAINE T 465.9 UPPER RESPIRATORY INFECTION 01/27/2013 NEIDA TALBOT MD 465.9 UPPER RESPIRATORY INFECTION 01/27/2013 465.9 UPPER RESPIRATORY INFECTION 01/27/2013 THONG BUSINESS OPERATIONS MANAGER, DWAINE T 465.9 UPPER RESPIRATORY INFECTION 01/27/2013 THONG BUSINESS OPERATIONS MANAGER, DWAINE T 465.9 UPPER RESPIRATORY INFECTION 01/27/2013 THONG BUSINESS OPERATIONS MANAGER, DWAINE T 465.9 UPPER RESPIRATORY INFECTION 01/27/2013 THONG BUSINESS OPERATIONS MANAGER, DWAINE T 465.9 UPPER RESPIRATORY INFECTION 01/27/2013 THONG BUSINESS OPERATIONS MANAGER, DWAINE T 465.9 UPPER RESPIRATORY INFECTION 01/27/2013 ANTIONE MORRISON, NEIDA 465.9 UPPER RESPIRATORY INFECTION 01/27/2013 THONG BUSINESS OPERATIONS MANAGER, DWAINE T 465.9 UPPER RESPIRATORY INFECTION 01/27/2013 THONG BUSINESS OPERATIONS MANAGER, DWAINE T 465.9 UPPER RESPIRATORY INFECTION 01/27/2013 PRICE DO, GILBERTO K 465.9 UPPER RESPIRATORY INFECTION 01/27/2013 THONG BUSINESS OPERATIONS MANAGER, DWAINE T 465.9 UPPER RESPIRATORY INFECTION 01/27/2013 THONG BUSINESS OPERATIONS MANAGER, DWAINE T 465.9 UPPER RESPIRATORY INFECTION 01/27/2013 THONG BUSINESS OPERATIONS MANAGER, DWAINE T 465.9 UPPER RESPIRATORY INFECTION 01/27/2013 THONG BUSINESS OPERATIONS MANAGER, DWAINE T 465.9 UPPER RESPIRATORY INFECTION 01/27/2013 PRICE DO, GILBERTO K 465.9 UPPER RESPIRATORY INFECTION 01/27/2013 THONG BUSINESS OPERATIONS MANAGER, DWAINE T 465.9 UPPER RESPIRATORY INFECTION 01/27/2013 THONG BUSINESS OPERATIONS MANAGER, DWAINE T 465.9 UPPER RESPIRATORY INFECTION 01/27/2013 THONG BUSINESS OPERATIONS MANAGER, DWAINE T 465.9 UPPER RESPIRATORY INFECTION 01/27/2013 THONG BUSINESS OPERATIONS MANAGER, DWAINE T 465.9 UPPER RESPIRATORY INFECTION 01/27/2013 THONG BUSINESS OPERATIONS MANAGER, DWAINE T 465.9 UPPER RESPIRATORY INFECTION 01/27/2013 THONG BUSINESS OPERATIONS MANAGER, DWAINE T 465.9 UPPER RESPIRATORY INFECTION 01/27/2013 THONG BUSINESS OPERATIONS MANAGER, DWAINE T 465.9 UPPER RESPIRATORY INFECTION 01/27/2013 THONG BUSINESS OPERATIONS MANAGER, DWAINE T 465.9 UPPER RESPIRATORY INFECTION 01/27/2013 THONG BUSINESS OPERATIONS MANAGER, DWAINE T 465.9 UPPER RESPIRATORY INFECTION 01/27/2013 THONG BUSINESS OPERATIONS MANAGER, DWAINE T 465.9 UPPER RESPIRATORY INFECTION 06/14/2013 YE ANDRADE MD 355.9 NEUROPATHY 06/14/2013 YE ANDRADE MD 788.1 pain during urination (dysuria) 06/14/2013 DWAINE BENITO APRN T 355.9 NEUROPATHY 06/14/2013 DWAINE BENITO APRN T 788.1 pain during urination (dysuria) 06/14/2013 THONG BUSINESS OPERATIONS MANAGER, DWAINE T 355.9 NEUROPATHY 06/14/2013 THONG BUSINESS OPERATIONS MANAGER, DWAINE T 788.1 DYSURIA 06/14/2013 THONG BUSINESS OPERATIONS MANAGER, DWAINE T 355.9 NEUROPATHY 06/14/2013 THONG BUSINESS OPERATIONS MANAGER, DWAINE T 788.1 DYSURIA 06/14/2013 THONG BUSINESS OPERATIONS MANAGER, DWAINE T 355.9 NEUROPATHY 06/14/2013 THONG BUSINESS OPERATIONS MANAGER, DWAINE T 788.1 DYSURIA 06/14/2013 THONG BUSINESS OPERATIONS MANAGER, DWAINE T 355.9 NEUROPATHY 06/14/2013 THONG BUSINESS OPERATIONS MANAGER, DWAINE T 788.1 DYSURIA 06/14/2013 THONG BUSINESS OPERATIONS MANAGER, DWAINE T 355.9 NEUROPATHY 06/14/2013 THONG BUSINESS OPERATIONS MANAGER, DWAINE T 788.1 DYSURIA 06/14/2013 THONG BUSINESS OPERATIONS MANAGER, DWAINE T 355.9 NEUROPATHY 06/14/2013 THONG BUSINESS OPERATIONS MANAGER, DWAINE T 788.1 DYSURIA 06/14/2013 THONG BUSINESS OPERATIONS MANAGER, DWAINE T 355.9 NEUROPATHY 06/14/2013 THONG BUSINESS OPERATIONS MANAGER, DWAINE T 788.1 DYSURIA 06/14/2013 THONG BUSINESS OPERATIONS MANAGER, DWAINE T 355.9 NEUROPATHY 06/14/2013 THONG BUSINESS OPERATIONS MANAGER, DWAINE T 788.1 DYSURIA 06/14/2013 NEIDA TALBOT MD 355.9 NEUROPATHY 06/14/2013 NEIDA TALBOT MD 788.1 DYSURIA 06/14/2013 THONG BUSINESS OPERATIONS MANAGER, DWAINE T 355.9 NEUROPATHY 06/14/2013 THONG BUSINESS OPERATIONS MANAGER, DWAINE T 788.1 DYSURIA 06/14/2013 THONG BUSINESS OPERATIONS MANAGER, DWAINE T 355.9 NEUROPATHY 06/14/2013 THONG BUSINESS OPERATIONS MANAGER, DWAINE T 788.1 DYSURIA 06/14/2013 THONG BUSINESS OPERATIONS MANAGER, DWAINE T 355.9 NEUROPATHY 06/14/2013 THONG BUSINESS OPERATIONS MANAGER, DWAINE T 788.1 DYSURIA 06/14/2013 THONG BUSINESS OPERATIONS MANAGER, DWAINE T 355.9 NEUROPATHY 06/14/2013 THONG BUSINESS OPERATIONS MANAGER, DWAINE T 788.1 DYSURIA 06/14/2013 THONG BUSINESS OPERATIONS MANAGER, DWAINE T 355.9 NEUROPATHY 06/14/2013 THONG BUSINESS OPERATIONS MANAGER, DWAINE T 788.1 DYSURIA 06/14/2013 THONG BUSINESS OPERATIONS MANAGER, DWAINE T 355.9 NEUROPATHY 06/14/2013 THONG BUSINESS OPERATIONS MANAGER, DWAINE T 788.1 DYSURIA 06/14/2013 THONG BUSINESS OPERATIONS MANAGER, DWAINE T 355.9 NEUROPATHY 06/14/2013 THONG BUSINESS OPERATIONS MANAGER, DWAINE T 788.1 DYSURIA 06/14/2013 NEIDA TALBOT MD 355.9 NEUROPATHY 06/14/2013 NEIDA TALBOT MD 788.1 DYSURIA 06/14/2013 355.9 NEUROPATHY 06/14/2013 788.1 DYSURIA 06/14/2013 THONG BUSINESS OPERATIONS MANAGER, DWAINE T 355.9 NEUROPATHY 06/14/2013 THONG BUSINESS OPERATIONS MANAGER, DWAINE T 788.1 DYSURIA 06/14/2013 THONG BUSINESS OPERATIONS MANAGER, DWAINE T 355.9 NEUROPATHY 06/14/2013 THONG BUSINESS OPERATIONS MANAGER, DWAINE T 788.1 DYSURIA 06/14/2013 THONG BUSINESS OPERATIONS MANAGER, DWAINE T 355.9 NEUROPATHY 06/14/2013 THONG BUSINESS OPERATIONS MANAGER, DWAINE T 788.1 DYSURIA 06/14/2013 DWAINE BENITO APRN T 355.9 NEUROPATHY 06/14/2013 DWAINE BENITO APRN T 788.1 DYSURIA 06/14/2013 DWAINE BENITO APRN T 355.9 NEUROPATHY 06/14/2013 DWAINE BENITO APRN T 788.1 DYSURIA 06/14/2013 NEIDA TALBOT MD 355.9 NEUROPATHY 06/14/2013 NEIDA TALBOT MD 788.1 DYSURIA 06/14/2013 DWAINE BENITO APRN T 355.9 NEUROPATHY 06/14/2013 THONG BUSINESS OPERATIONS MANAGERDWAINE Arredondo T 788.1 DYSURIA 06/14/2013 DWAINE BENITO APRN T 355.9 NEUROPATHY 06/14/2013 DWAINE BENITO APRN T 788.1 DYSURIA 06/14/2013 PRICE DO, GILBERTO K 355.9 NEUROPATHY 06/14/2013 PRICE DO, GILBERTO K 788.1 DYSURIA 06/14/2013 DWAINE BENITO APRN T 355.9 NEUROPATHY 06/14/2013 THONG BUSINESS OPERATIONS MANAGERDWAINE T 788.1 DYSURIA 06/14/2013 THONG BUSINESS OPERATIONS MANAGERDWAINE T 355.9 NEUROPATHY 06/14/2013 THONG BUSINESS OPERATIONS MANAGERDWAINE T 788.1 DYSURIA 06/14/2013 THONG BUSINESS OPERATIONS MANAGERDWAINE T 355.9 NEUROPATHY 06/14/2013 THONG BUSINESS OPERATIONS MANAGERDWAINE T 788.1 DYSURIA 06/14/2013 THONG BUSINESS OPERATIONS MANAGERDWAINE T 355.9 NEUROPATHY 06/14/2013 THONG BUSINESS OPERATIONS MANAGERDWAINE T 788.1 DYSURIA 06/14/2013 PRICE DO, GILBERTO K 355.9 NEUROPATHY 06/14/2013 PRICE DO, GILBERTO K 788.1 DYSURIA 06/14/2013 THONG SAAVEDRAN, DWAINE T 355.9 NEUROPATHY 06/14/2013 THONG BUSINESS OPERATIONS MANAGER, DWAINE T 788.1 DYSURIA 06/14/2013 THONG BUSINESS OPERATIONS MANAGER, DWAINE T 355.9 NEUROPATHY 06/14/2013 THONG BUSINESS OPERATIONS MANAGER, DWAINE T 788.1 DYSURIA 06/14/2013 THONG BUSINESS OPERATIONS MANAGER, DWAINE T 355.9 NEUROPATHY 06/14/2013 THONG SAAVEDRAN, DWAINE T 788.1 DYSURIA 06/14/2013 THONG BUSINESS OPERATIONS MANAGERDWAINE T 355.9 NEUROPATHY 06/14/2013 THONG BUSINESS OPERATIONS MANAGER, DWAINE T 788.1 DYSURIA 06/14/2013 THONG BUSINESS OPERATIONS MANAGERDWAINE T 355.9 NEUROPATHY 06/14/2013 THONG SAAVEDRANDWAINE T 788.1 DYSURIA 06/14/2013 THONG SAAVEDRANDWAINE T 355.9 NEUROPATHY 06/14/2013 THONG BUSINESS OPERATIONS MANAGERDWAINE T 788.1 DYSURIA 06/14/2013 THONG SAAVEDRANDWAINE T 355.9 NEUROPATHY 06/14/2013 DWAINE BENITO APRN T 788.1 DYSURIA 06/14/2013 DWAINE BENITO APRN T 355.9 NEUROPATHY 06/14/2013 THONG SAAVEDRANDWAINE T 788.1 DYSURIA 06/14/2013 THONG SAAVEDRANDWAINE T 355.9 NEUROPATHY 06/14/2013 THONG SAAVEDRANDWAINE T 788.1 DYSURIA 06/14/2013 DWAINE BENITO APRN T 355.9 NEUROPATHY 06/14/2013 DWAINE BENITO APRN T 788.1 DYSURIA 06/27/2013 DWAINE BENITO APRN T 847.0 SPRAIN/STRAIN NECK 06/27/2013 DWAINE BENITO APRN T 847.0 SPRAIN/STRAIN NECK 06/27/2013 DWAINE BNEITO APRN T 847.0 SPRAIN/STRAIN NECK 06/27/2013 DWAINE BENITO APRN T 847.0 SPRAIN/STRAIN NECK 06/27/2013 DWAINE BENITO APRN T 847.0 SPRAIN/STRAIN NECK 06/27/2013 DWAINE BENITO APRN T 847.0 SPRAIN/STRAIN NECK 06/27/2013 DWAINE BENITO APRN T 847.0 SPRAIN/STRAIN NECK 06/27/2013 NEIDA TALBOT MD 847.0 SPRAIN/STRAIN NECK 06/27/2013 DWAINE BENITO APRN 847.0 SPRAIN/STRAIN NECK 06/27/2013 DWAINE BENITO APRN T 847.0 SPRAIN/STRAIN NECK 06/27/2013 DWAINE BENITO APRN T 847.0 SPRAIN/STRAIN NECK 06/27/2013 DWAINE BENITO APRN T 847.0 SPRAIN/STRAIN NECK 06/27/2013 DWAINE BENITO APRN T 847.0 SPRAIN/STRAIN NECK 06/27/2013 DWAINE BENITO APRN T 847.0 SPRAIN/STRAIN NECK 06/27/2013 DWAINE BENITO APRN 847.0 SPRAIN/STRAIN NECK 06/27/2013 NEIDA TALBOT MD 847.0 SPRAIN/STRAIN NECK 06/27/2013 847.0 SPRAIN/STRAIN NECK 06/27/2013 DWAINE BENITO APRN 847.0 SPRAIN/STRAIN NECK 06/27/2013 DWAINE BENITO APRN T 847.0 SPRAIN/STRAIN NECK 06/27/2013 DWAINE EBNITO APRN T 847.0 SPRAIN/STRAIN NECK 06/27/2013 DWAINE BENITO APRN T 847.0 SPRAIN/STRAIN NECK 06/27/2013 DWAINE BENITO APRN T 847.0 SPRAIN/STRAIN NECK 06/27/2013 NEIDA TALBOT MD 847.0 SPRAIN/STRAIN NECK 06/27/2013 DWAINE BENITO APRN T 847.0 SPRAIN/STRAIN NECK 06/27/2013 DWAINE BENITO APRN T 847.0 SPRAIN/STRAIN NECK 06/27/2013 DEE GUILLAUME GILBERTO K 847.0 SPRAIN/STRAIN NECK 06/27/2013 DWAINE BENITO APRN T 847.0 SPRAIN/STRAIN NECK 06/27/2013 DWAINE BENITO APRN T 847.0 SPRAIN/STRAIN NECK 06/27/2013 DWAINE BENITO APRN T 847.0 SPRAIN/STRAIN NECK 06/27/2013 DWAINE BENITO APRN T 847.0 SPRAIN/STRAIN NECK 06/27/2013 PRICE DO, GILBERTO K 847.0 SPRAIN/STRAIN NECK 06/27/2013 DWAINE BENITO APRN T 847.0 SPRAIN/STRAIN NECK 06/27/2013 DWAINE BENITO APRN T 847.0 SPRAIN/STRAIN NECK 06/27/2013 DWAINE BENITO APRN T 847.0 SPRAIN/STRAIN NECK 06/27/2013 DWAINE BENITO APRN 847.0 SPRAIN/STRAIN NECK 06/27/2013 DWAINE BENITO APRN T 847.0 SPRAIN/STRAIN NECK 06/27/2013 DWAINE BENITO APRN T 847.0 SPRAIN/STRAIN NECK 06/27/2013 DWAINE BENITO APRN T 847.0 SPRAIN/STRAIN NECK 06/27/2013 DWAINE BENITO APRN T 847.0 SPRAIN/STRAIN NECK 06/27/2013 DWAINE BENITO APRN T 847.0 SPRAIN/STRAIN NECK 06/27/2013 DWAINE BENITO APRN T 847.0 SPRAIN/STRAIN NECK 08/03/2013 NEIDA TALBOT MD V53.6 FITTING AND ADJUSTMENT OF URINARY DEVICES 08/03/2013 DWAINE BENITO APRN V53.6 FITTING AND ADJUSTMENT OF URINARY DEVICES 08/03/2013 DWAINE BENITO APRN V53.6 FITTING AND ADJUSTMENT OF URINARY DEVICES 08/03/2013 DWAINE BENITO APRN V53.6 FITTING AND ADJUSTMENT OF URINARY DEVICES 08/03/2013 DWAINE BENITO APRN V53.6 FITTING AND ADJUSTMENT OF URINARY DEVICES 08/03/2013 DWAINE BENITO APRN V53.6 FITTING AND ADJUSTMENT OF URINARY DEVICES 08/03/2013 DWAINE BENITO APRN V53.6 FITTING AND ADJUSTMENT OF URINARY DEVICES 08/03/2013 DWAINE BENITO APRN V53.6 FITTING AND ADJUSTMENT OF URINARY DEVICES 08/03/2013 NEIDA TALBOT MD V53.6 FITTING AND ADJUSTMENT OF URINARY DEVICES 08/03/2013 V53.6 FITTING AND ADJUSTMENT OF URINARY DEVICES 08/03/2013 DWAINE BENITO APRN V53.6 FITTING AND ADJUSTMENT OF URINARY DEVICES 08/03/2013 DWAINE BENITO APRN V53.6 FITTING AND ADJUSTMENT OF URINARY DEVICES 08/03/2013 DWAINE BENITO APRN V53.6 FITTING AND ADJUSTMENT OF URINARY DEVICES 08/03/2013 DWAINE BENITO APRN V53.6 FITTING AND ADJUSTMENT OF URINARY DEVICES 08/03/2013 DWAINE BENITO APRN V53.6 FITTING AND ADJUSTMENT OF URINARY DEVICES 08/03/2013 NEIDA TALBOT MD V53.6 FITTING AND ADJUSTMENT OF URINARY DEVICES 08/03/2013 DWAINE BENITO APRN V53.6 FITTING AND ADJUSTMENT OF URINARY DEVICES 08/03/2013 DWAINE BENITO APRN V53.6 FITTING AND ADJUSTMENT OF URINARY DEVICES 08/03/2013 PRICE DOERNESTOA K V53.6 FITTING AND ADJUSTMENT OF URINARY DEVICES 08/03/2013 DWAINE BENITO APRN V53.6 FITTING AND ADJUSTMENT OF URINARY DEVICES 08/03/2013 DWAINE BENITO APRN V53.6 FITTING AND ADJUSTMENT OF URINARY DEVICES 08/03/2013 DWAINE BENITO APRN V53.6 FITTING AND ADJUSTMENT OF URINARY DEVICES 08/03/2013 DWAINE BENITO APRN V53.6 FITTING AND ADJUSTMENT OF URINARY DEVICES 08/03/2013 DEE DOGILBERTO K V53.6 FITTING AND ADJUSTMENT OF URINARY DEVICES 08/03/2013 DWAINE BENITO APRN V53.6 FITTING AND ADJUSTMENT OF URINARY DEVICES 08/03/2013 DWAINE BENITO APRN V53.6 FITTING AND ADJUSTMENT OF URINARY DEVICES 08/03/2013 DWAINE BENITO APRN V53.6 FITTING AND ADJUSTMENT OF URINARY DEVICES 08/03/2013 DWAINE BENITO APRN V53.6 FITTING AND ADJUSTMENT OF URINARY DEVICES 08/03/2013 DWAINE BENITO APRN V53.6 FITTING AND ADJUSTMENT OF URINARY DEVICES 08/03/2013 DWAINE BENITO APRN V53.6 FITTING AND ADJUSTMENT OF URINARY DEVICES 08/03/2013 DWAINE BENITO APRN V53.6 FITTING AND ADJUSTMENT OF URINARY DEVICES 08/03/2013 DWAINE BENITO APRN V53.6 FITTING AND ADJUSTMENT OF URINARY DEVICES 08/03/2013 DWAINE BENITO APRN V53.6 FITTING AND ADJUSTMENT OF URINARY DEVICES 08/03/2013 DWAINE BENITO APRN V53.6 FITTING AND ADJUSTMENT OF URINARY DEVICES 08/04/2013 DWAINE BENITO APRN 477.0 ALLERGIC RHINITIS DUE TO POLLEN 08/04/2013 DWAINE BENITO APRN 477.0 ALLERGIC RHINITIS DUE TO POLLEN 08/04/2013 DWAINE BENITO APRN 477.0 ALLERGIC RHINITIS DUE TO POLLEN 08/04/2013 DWAINE BENITO APRN 477.0 ALLERGIC RHINITIS DUE TO POLLEN 08/04/2013 DWAINE BENITO APRN 477.0 ALLERGIC RHINITIS DUE TO POLLEN 08/04/2013 DWAINE BENITO APRN 477.0 ALLERGIC RHINITIS DUE TO POLLEN 08/04/2013 DWAINE BENITO APRN 477.0 ALLERGIC RHINITIS DUE TO POLLEN 08/04/2013 NEIDA TALBOT MD 477.0 ALLERGIC RHINITIS DUE TO POLLEN 08/04/2013 477.0 ALLERGIC RHINITIS DUE TO POLLEN 08/04/2013 DWAINE BENITO APRN T 477.0 ALLERGIC RHINITIS DUE TO POLLEN 08/04/2013 DWAINE BENITO APRN T 477.0 ALLERGIC RHINITIS DUE TO POLLEN 08/04/2013 DWAINE BENITO APRN T 477.0 ALLERGIC RHINITIS DUE TO POLLEN 08/04/2013 DWAINE BENITO APRN T 477.0 ALLERGIC RHINITIS DUE TO POLLEN 08/04/2013 DWAINE BENITO APRN T 477.0 ALLERGIC RHINITIS DUE TO POLLEN 08/04/2013 NEIDA TALBOT MD 477.0 ALLERGIC RHINITIS DUE TO POLLEN 08/04/2013 DWAINE BENITO APRN T 477.0 ALLERGIC RHINITIS DUE TO POLLEN 08/04/2013 DWAINE BENITO APRN T 477.0 ALLERGIC RHINITIS DUE TO POLLEN 08/04/2013 PRICE DO, GILBERTO K 477.0 ALLERGIC RHINITIS DUE TO POLLEN 08/04/2013 DWAINE BENITO APRN T 477.0 ALLERGIC RHINITIS DUE TO POLLEN 08/04/2013 DWAINE BENITO APRN T 477.0 ALLERGIC RHINITIS DUE TO POLLEN 08/04/2013 DWAINE BENITO APRN T 477.0 ALLERGIC RHINITIS DUE TO POLLEN 08/04/2013 DWAINE BENITO APRN T 477.0 ALLERGIC RHINITIS DUE TO POLLEN 08/04/2013 PRICE DO, GILBERTO K 477.0 ALLERGIC RHINITIS DUE TO POLLEN 08/04/2013 DWAINE BENITO APRN T 477.0 ALLERGIC RHINITIS DUE TO POLLEN 08/04/2013 DWAINE BENITO APRN T 477.0 ALLERGIC RHINITIS DUE TO POLLEN 08/04/2013 DWAINE BENITO APRN T 477.0 ALLERGIC RHINITIS DUE TO POLLEN 08/04/2013 DWAINE BENITO APRN T 477.0 ALLERGIC RHINITIS DUE TO POLLEN 08/04/2013 DWAINE BENITO APRN T 477.0 ALLERGIC RHINITIS DUE TO POLLEN 08/04/2013 DWAINE BENITO APRN T 477.0 ALLERGIC RHINITIS DUE TO POLLEN 08/04/2013 DWAINE BENITO APRN T 477.0 ALLERGIC RHINITIS DUE TO POLLEN 08/04/2013 DWAINE BENITO APRN T 477.0 ALLERGIC RHINITIS DUE TO POLLEN 08/04/2013 DWAINE BENITO APRN T 477.0 ALLERGIC RHINITIS DUE TO POLLEN 08/04/2013 DWAINE BENITO APRN T 477.0 ALLERGIC RHINITIS DUE TO POLLEN 08/28/2013 BING MORRISON, HONG Alba Ot 079.99 08/28/2013 HONG SMART MD Ot 786.2 11/09/2013 NEIDA TALBOT MD 682.9 CELLULITIS AND ABSCESS OF UNSPECIFIED SITES 11/09/2013 682.9 CELLULITIS AND ABSCESS OF UNSPECIFIED SITES 11/09/2013 DWAINE BENITO APRN 682.9 CELLULITIS AND ABSCESS OF UNSPECIFIED SITES 11/09/2013 DWAINE BENITO APRN 682.9 CELLULITIS AND ABSCESS OF UNSPECIFIED SITES 11/09/2013 DWAINE BENITO APRN 682.9 CELLULITIS AND ABSCESS OF UNSPECIFIED SITES 11/09/2013 DWAINE BENITO APRN 682.9 CELLULITIS AND ABSCESS OF UNSPECIFIED SITES 11/09/2013 DWAINE BENITO APRN 682.9 CELLULITIS AND ABSCESS OF UNSPECIFIED SITES 11/09/2013 NEIDA TALBOT MD 682.9 CELLULITIS AND ABSCESS OF UNSPECIFIED SITES 11/09/2013 DWAINE BENITO APRN 682.9 CELLULITIS AND ABSCESS OF UNSPECIFIED SITES 11/09/2013 DWAINE BENITO APRN T 682.9 CELLULITIS AND ABSCESS OF UNSPECIFIED SITES 11/09/2013 PRICE DO, GILBERTO K 682.9 CELLULITIS AND ABSCESS OF UNSPECIFIED SITES 11/09/2013 DWAINE BENITO APRN T 682.9 CELLULITIS AND ABSCESS OF UNSPECIFIED SITES 11/09/2013 DWAINE BENITO APRN T 682.9 CELLULITIS AND ABSCESS OF UNSPECIFIED SITES 11/09/2013 DWAINE BENITO APRN 682.9 CELLULITIS AND ABSCESS OF UNSPECIFIED SITES 11/09/2013 DWAINE BENITO APRN 682.9 CELLULITIS AND ABSCESS OF UNSPECIFIED SITES 11/09/2013 PRICE DO, GILBERTO K 682.9 CELLULITIS AND ABSCESS OF UNSPECIFIED SITES 11/09/2013 DWAINE BENITO APRN 682.9 CELLULITIS AND ABSCESS OF UNSPECIFIED SITES 11/09/2013 DWAINE BENITO APRN 682.9 CELLULITIS AND ABSCESS OF UNSPECIFIED SITES 11/09/2013 DWAINE BENITO APRN T 682.9 CELLULITIS AND ABSCESS OF UNSPECIFIED SITES 11/09/2013 DWAINE BENITO APRN 682.9 CELLULITIS AND ABSCESS OF UNSPECIFIED SITES 11/09/2013 THONG BUSINESS OPERATIONS MANAGER, DWAINE T 682.9 CELLULITIS AND ABSCESS OF UNSPECIFIED SITES 11/09/2013 THONG BUSINESS OPERATIONS MANAGERDWAINE T 682.9 CELLULITIS AND ABSCESS OF UNSPECIFIED SITES 11/09/2013 THONG SAAVEDRANDWAINE T 682.9 CELLULITIS AND ABSCESS OF UNSPECIFIED SITES 11/09/2013 THONG BUSINESS OPERATIONS MANAGER, DWAINE T 682.9 CELLULITIS AND ABSCESS OF UNSPECIFIED SITES 11/09/2013 DWAINE BENITO APRN T 682.9 CELLULITIS AND ABSCESS OF UNSPECIFIED SITES 11/09/2013 DWAINE BENITO APRN T 682.9 CELLULITIS AND ABSCESS OF UNSPECIFIED SITES 01/16/2014 THONG SAAVEDRAN, DWAINE T 564.00 CONSTIPATION 01/16/2014 PRICE DO GILBERTO K 564.00 CONSTIPATION 01/16/2014 THONG SAAVEDRAN, DWAINE T 564.00 CONSTIPATION 01/16/2014 THONG SAAVEDRAN, DWAINE T 564.00 CONSTIPATION 01/16/2014 THONG SAAVEDRAN, DWAINE T 564.00 CONSTIPATION 01/16/2014 THONG HODGES, DWAINE T 564.00 CONSTIPATION 01/16/2014 ERNESTO PRICE DOA K 564.00 CONSTIPATION 01/16/2014 THONG BUSINESS OPERATIONS MANAGER, DWAINE T 564.00 CONSTIPATION 01/16/2014 THONG BUSINESS OPERATIONS MANAGER, DWAINE T 564.00 CONSTIPATION 01/16/2014 THONG BUSINESS OPERATIONS MANAGER, DWAINE T 564.00 CONSTIPATION 01/16/2014 THONG BUSINESS OPERATIONS MANAGER, DWAINE T 564.00 CONSTIPATION 01/16/2014 THONG BUSINESS OPERATIONS MANAGER, DWAINE T 564.00 CONSTIPATION 01/16/2014 THONG BUSINESS OPERATIONS MANAGER, DWAINE T 564.00 CONSTIPATION 01/16/2014 THONG SAAVEDRAN, DWAINE T 564.00 CONSTIPATION 01/16/2014 THONG SAAVEDRAN, DWAINE T 564.00 CONSTIPATION 01/16/2014 THONG BUSINESS OPERATIONS MANAGER, DWAINE T 564.00 CONSTIPATION 01/16/2014 THONG BUSINESS OPERATIONS MANAGER, DWAINE T 564.00 CONSTIPATION 02/25/2014 DWAINE BENITO APRN T 465.9 UPPER RESPIRATORY INFECTION 02/25/2014 DWAINE BENITO APRN T 465.9 UPPER RESPIRATORY INFECTION 02/25/2014 PRICE DO GILBERTO K 465.9 UPPER RESPIRATORY INFECTION 02/25/2014 THONG SAAVEDRANDWAINE T 465.9 UPPER RESPIRATORY INFECTION 02/25/2014 DWAINE BENITO APRN T 465.9 UPPER RESPIRATORY INFECTION 02/25/2014 DWAINE BENITO APRN T 465.9 UPPER RESPIRATORY INFECTION 02/25/2014 THONG BUSINESS OPERATIONS MANAGER, DWAINE T 465.9 UPPER RESPIRATORY INFECTION 02/25/2014 THONG BUSINESS OPERATIONS MANAGER, DWAINE T 465.9 UPPER RESPIRATORY INFECTION 02/25/2014 THONG BUSINESS OPERATIONS MANAGER, DWAINE T 465.9 UPPER RESPIRATORY INFECTION 02/25/2014 THONG BUSINESS OPERATIONS MANAGER, DWAINE T 465.9 UPPER RESPIRATORY INFECTION 02/25/2014 THONG BUSINESS OPERATIONS MANAGER, DWAINE T 465.9 UPPER RESPIRATORY INFECTION 02/25/2014 THONG BUSINESS OPERATIONS MANAGER, DWAINE T 465.9 UPPER RESPIRATORY INFECTION 02/25/2014 THONG BUSINESS OPERATIONS MANAGER, DWAINE T 465.9 UPPER RESPIRATORY INFECTION 02/27/2014 DINAH CONTEH DO Ot 493.90 02/27/2014 DINAH CONTEH DO Ot 786.2 02/27/2014 Ot 599.0 02/27/2014 Ot 599.0 02/27/2014 Ot 250.00 02/27/2014 Ot 707.00 02/27/2014 Ot 707.24 02/27/2014 Ot 592.1 02/27/2014 Ot 789.1 02/27/2014 Ot 592.1 02/27/2014 Ot V72.83 02/27/2014 Ot 592.0 02/27/2014 Ot 592.1 02/27/2014 Ot 789.09 02/27/2014 Ot 356.1 02/27/2014 Ot 733.90 02/27/2014 Ot 625.9 02/27/2014 Ot 780.60 02/27/2014 Ot 564.00 02/27/2014 Ot 593.89 02/27/2014 Ot 780.60 02/27/2014 Ot 791.9 02/27/2014 Ot 564.00 02/27/2014 Ot 789.09 02/27/2014 Ot 599.0 02/27/2014 Ot 791.9 02/27/2014 Ot 356.1 02/27/2014 Ot 599.0 02/27/2014 Ot V53.6 02/27/2014 Ot V53.6 02/27/2014 Ot 599.0 02/27/2014 Ot V53.6 02/27/2014 Ot V53.6 02/27/2014 Ot 356.1 02/27/2014 Ot 599.0 02/27/2014 Ot V53.6 02/27/2014 Ot V53.6 02/27/2014 Ot 599.0 02/27/2014 Ot V53.6 02/27/2014 Ot 599.0 02/27/2014 Ot 709.8 02/27/2014 RAYMOND MORRISON, YE Robles Ot V76.12 02/27/2014 RYAN MORRISON, APOLLO Castillo Ot 707.05 02/27/2014 RYAN MORRISON, APOLLO Castillo Ot 707.20 02/27/2014 RYAN MORRISON, APOLLO Castillo Ot 707.9 02/27/2014 RYAN MORRISON, APOLLO Castillo Ot 719.45 02/27/2014 DWAINE BENITO FIRE ADJUSTER Ot 707.05 02/27/2014 DWAINE BENITO FIRE ADJUSTER Ot 707.20 03/02/2014 GILBERTO PRICE DO Ot 250.00 03/02/2014 GILBERTO PRICE DO Ot 356.1 03/02/2014 GILBERTO PRICE DO K Ot 465.9 03/02/2014 GILBERTO PRICE DO K Ot 490 03/02/2014 GILBERTO PRICE DO Ot 707.04 03/02/2014 GILBERTO PRICE DO Ot 707.20 03/02/2014 GILBERTO PRICE DO Ot 786.59 03/02/2014 GILBERTO RPICE DO Ot V04.81 08/22/2014 Ot 592.1 08/22/2014 Ot 789.09 08/22/2014 Ot 356.1 08/22/2014 Ot 733.90 08/22/2014 Ot 625.9 08/22/2014 Ot 780.60 08/22/2014 Ot 564.00 08/22/2014 Ot 593.89 08/22/2014 Ot 780.60 08/22/2014 Ot 791.9 08/22/2014 Ot 564.00 08/22/2014 Ot 789.09 08/22/2014 Ot 599.0 08/22/2014 Ot 791.9 08/22/2014 Ot 356.1 08/22/2014 Ot 599.0 08/22/2014 Ot V53.6 08/22/2014 Ot V53.6 08/22/2014 Ot 599.0 08/22/2014 Ot V53.6 08/22/2014 Ot V53.6 08/22/2014 Ot 356.1 08/22/2014 Ot 599.0 08/22/2014 Ot V53.6 08/22/2014 Ot V53.6 08/22/2014 Ot 599.0 08/22/2014 Ot V53.6 08/22/2014 Ot 599.0 08/22/2014 Ot 709.8 08/22/2014 RAYMOND MORRISON, YE Robles Ot V76.12 08/22/2014 RYAN MORRISON, APOLLO Castillo Ot 707.05 08/22/2014 RYAN MORRISON, APOLLO Castillo Ot 707.20 08/22/2014 RYAN MORRISON, APOLLO Castillo Ot 707.9 08/22/2014 RYAN MORRISON, APOLLO Castillo Ot 719.45 08/22/2014 DWAINE BENITO Ot 707.05 08/22/2014 DWAINE BENITO Ot 707.20 08/22/2014 MATTHEW MORRISON, ALYSIA Rushing Ot 786.2 05/29/2015 WERO DO, DINAH K Ot E11.9 05/29/2015 WERO , DINAH K Ot F17.210 05/29/2015 WERO DO, DINAH K Ot N31.9 05/29/2015 WERO DO, DINAH K Ot N39.0 05/29/2015 WERO , DINAH K Ot Z79.899 07/19/2015 SHIRLEY KIRKPATRICK MD Ot F17.210 NICOTINE DEPENDENCE, CIGARETTES, UNCOMPL 07/19/2015 SHIRLEY KIRKPATRICK MD Ot 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 MOTOR AND SENSORY NEUROPATHY 07/19/2015 SHIRLEY KIRKPATRICK MD Ot 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 07/20/2015 SHIRLEY KIRKPATRICK MD Ot F17.210 07/20/2015 SHIRLEY KIRKPATRICK MD Ot G60.0 07/20/2015 SHIRLEY KIRKPATRICK MD Ot T83.098A 07/31/2015 HANLEY DO, ADALID L Ot K59.00 CONSTIPATION, UNSPECIFIED 08/01/2015 HANLEY DO, ADALID L Ot K59.00 CONSTIPATION, UNSPECIFIED 08/06/2015 HANLEY DO, ADALID L Ot K59.00 CONSTIPATION, UNSPECIFIED 01/30/2016 VICENTE MORRISON, MAIKEL Mayberry Ot E11.9 TYPE 2 DIABETES MELLITUS WITHOUT COMPLIC 01/30/2016 ALICIA ZHANG MDNT A Ot F17.210 NICOTINE DEPENDENCE, CIGARETTES, UNCOMPL 01/30/2016 ALICIA ZHANG MDNT A Ot 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 MOTOR AND SENSORY NEUROPATHY 01/30/2016 ALICIA ZHANG MDNT A Ot N39.0 URINARY TRACT INFECTION, SITE NOT SPECIF 01/30/2016 MAIKEL ZHANG MD A Ot R30.0 DYSURIA 01/30/2016 MAIKEL ZHANG MD A Ot Z79.84 [employer] (CURRENT) USE OF ORAL HYPOGLYC 01/30/2016 VICENTE MORRISON MAIKEL A Ot Z79.899 OTHER [facility] (CURRENT) DRUG THERAPY 01/31/2016 ALICIA ZHANG MDNT A Ot E11.9 TYPE 2 DIABETES MELLITUS WITHOUT COMPLIC 01/31/2016 ALICIA ZHANG MDNT A Ot F17.210 NICOTINE DEPENDENCE, CIGARETTES, UNCOMPL 01/31/2016 MAIKEL ZHANG MD A Ot 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 MOTOR AND SENSORY NEUROPATHY 01/31/2016 MAIKEL ZHANG MD A Ot N39.0 URINARY TRACT INFECTION, SITE NOT SPECIF 01/31/2016 MAIKEL ZHANG MD A Ot R30.0 DYSURIA 01/31/2016 ALICIA ZHANG MDNT A Ot Z79.84 [facility] (CURRENT) USE OF ORAL HYPOGLYC 01/31/2016 ALICIA ZHANG MDNT A Ot Z79.899 [facility] (CURRENT) DRUG THERAPY 02/05/2016 MAIKEL ZHANG MD A Ot E11.9 TYPE 2 DIABETES MELLITUS WITHOUT COMPLIC 02/05/2016 ALICIA ZHANG MDNT A Ot F17.210 NICOTINE DEPENDENCE, CIGARETTES, UNCOMPL 02/05/2016 ALICIA ZHANG MDNT A Ot 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 MOTOR AND SENSORY NEUROPATHY 02/05/2016 ALICIA ZHANG MDNT A Ot N39.0 URINARY TRACT INFECTION, SITE NOT SPECIF 02/05/2016 ALICIA ZHANG MDNT A Ot R30.0 DYSURIA 02/05/2016 VICENTE MORRISON MAIKEL A Ot Z79.84 [facility] (CURRENT) USE OF ORAL HYPOGLYC 02/05/2016 VICENTE MORRISON MAIKEL A Ot Z79.899 OTHER [facility] (CURRENT) DRUG THERAPY 02/07/2016 JOVAN CASON MD Ot N39.0 URINARY TRACT INFECTION, SITE NOT SPECIF 02/08/2016 JOVAN CASON MD Ot N39.0 URINARY TRACT INFECTION, SITE NOT SPECIF 02/26/2016 JOVAN CASON MD Ot N39.0 URINARY TRACT INFECTION, SITE NOT SPECIF 04/26/2016 ALYSIA CASTRO MD Ot E11.9 TYPE 2 DIABETES MELLITUS WITHOUT COMPLIC 04/26/2016 ALYSIA CASTRO MD Ot F17.210 NICOTINE DEPENDENCE, CIGARETTES, UNCOMPL 04/26/2016 ALYSIA CASTRO MD Ot N31.9 NEUROMUSCULAR DYSFUNCTION OF BLADDER , UN 04/26/2016 ALYSIA CASTRO MD Ot R10.2 PELVIC AND PERINEAL PAIN 04/26/2016 ALYSIA CASTRO MD Ot T83.021A DISPLACEMENT OF INDWELLING URETHRAL CATH 04/26/2016 ALYSIA CASTRO MD Ot Z79.84 [employer] (CURRENT) USE OF ORAL HYPOGLYC 04/28/2016 ALYSIA CASTRO MD Ot E11.9 TYPE 2 DIABETES MELLITUS WITHOUT COMPLIC 04/28/2016 ALYSIA CASTRO MD Ot F17.210 NICOTINE DEPENDENCE, CIGARETTES, UNCOMPL 04/28/2016 ALYSIA CASTRO MD Ot N31.9 NEUROMUSCULAR DYSFUNCTION OF BLADDER , UN 04/28/2016 ALYSIA CASTRO MD Ot R10.2 PELVIC AND PERINEAL PAIN 04/28/2016 ALYSIA CASTRO MD Ot T83.021A DISPLACEMENT OF INDWELLING URETHRAL CATH 04/28/2016 ALYSIA CASTRO MD Ot Z79.84 [employer] (CURRENT) USE OF ORAL HYPOGLYC 05/04/2016 JOVAN CASON MD Ot N39.0 URINARY TRACT INFECTION, SITE NOT SPECIF 05/06/2016 JOVAN CASON MD Ot N39.0 URINARY TRACT INFECTION, SITE NOT SPECIF 05/10/2016 JOVAN CASON MD Ot N39.0 URINARY TRACT INFECTION, SITE NOT SPECIF 05/14/2016 SHIRLEY KIRKPATRICK MD Ot K59.00 CONSTIPATION, UNSPECIFIED 05/14/2016 SHIRLEY KIRKPATRICK MD Ot M41.9 SCOLIOSIS, UNSPECIFIED 05/15/2016 SHIRLEY KIRKPATRICK MD Ot K59.00 CONSTIPATION, UNSPECIFIED 05/15/2016 SHIRLEY KIRKPATRICK MD, Ot M41.9 SCOLIOSIS, UNSPECIFIED 05/20/2016 HONG SMART MD Ot E11.9 TYPE 2 DIABETES MELLITUS WITHOUT COMPLIC 05/20/2016 HONG SMART MD Ot 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 MOTOR AND SENSORY NEUROPATHY 05/20/2016 HONG SMART MD Ot K59.00 CONSTIPATION, UNSPECIFIED 05/20/2016 HONG SMART MD Ot T83.511A I/I REACT D/T INDWELLING URETHRAL CATHET 05/20/2016 HONG SMART MD Ot Z79.84 [facility] (CURRENT) USE OF ORAL HYPOGLYC 05/20/2016 HONG SMART MD Ot Z91.19 PATIENT'S NONCOMPLIANCE W [facility] TR 09/21/2016 SHIRLEY KIRKPATRICK MD, Ot E11.9 TYPE 2 DIABETES MELLITUS WITHOUT COMPLIC 09/21/2016 SHIRLEY KIRKPATRICK MD, Ot F17.210 NICOTINE DEPENDENCE, CIGARETTES, UNCOMPL 09/21/2016 SHIRLEY KIRKPATRICK MD, Ot N39.0 URINARY TRACT INFECTION, SITE NOT SPECIF 09/21/2016 SHIRLEY KIRKPATRICK MD, Ot Z79.84 [employer] (CURRENT) USE OF ORAL HYPOGLYC 09/21/2016 SHIRLEY KIRKPATRICK MD, Ot Z87.442 PERSONAL HISTORY OF URINARY CALCULI 09/25/2016 DWAINE BENITO FIRE ADJUSTER Ot N39.0 URINARY TRACT INFECTION, SITE NOT SPECIF 09/25/2016 DWAINE BENITO FIRE ADJUSTER Ot N39.0 URINARY TRACT INFECTION, SITE NOT SPECIF 09/25/2016 DWAINE BENITO FIRE ADJUSTER Ot N39.0 URINARY TRACT INFECTION, SITE NOT SPECIF 09/26/2016 DWAINE BENITO FIRE ADJUSTER Ot N39.0 URINARY TRACT INFECTION, SITE NOT SPECIF 09/27/2016 SHIRLEY KIRKPATRICK MD, Ot E11.9 TYPE 2 DIABETES MELLITUS WITHOUT COMPLIC 09/27/2016 SHIRLEY KIRKPATRICK MD, Ot F17.210 NICOTINE DEPENDENCE, CIGARETTES, UNCOMPL 09/27/2016 SHIRLEY KIRKPATRICK MD, Ot N39.0 URINARY TRACT INFECTION, SITE NOT SPECIF 09/27/2016 SHIRLEY KIRKPATRICK MD, Ot Z79.84 [facility] (CURRENT) USE OF ORAL HYPOGLYC 09/27/2016 SHIRLEY KIRKPATRICK MD, Ot Z87.442 PERSONAL HISTORY OF URINARY CALCULI 09/27/2016 THONG DWAINE Rushing FIRE ADJUSTER Ot N39.0 URINARY TRACT INFECTION, SITE NOT SPECIF 09/27/2016 DWAINE BENITO FIRE ADJUSTER Ot N39.0 URINARY TRACT INFECTION, SITE NOT SPECIF 09/28/2016 DWAINE BENITO Сергей FIRE ADJUSTER Ot N39.0 URINARY TRACT INFECTION, SITE NOT SPECIF 09/28/2016 DWAINE BENITO FIRE ADJUSTER Ot N39.0 URINARY TRACT INFECTION, SITE NOT SPECIF 09/28/2016 DWAINE BENITO FIRE ADJUSTER Ot N39.0 URINARY TRACT INFECTION, SITE NOT SPECIF 09/29/2016 THONG DWIANE Rushing FIRE ADJUSTER Ot N39.0 URINARY TRACT INFECTION, SITE NOT SPECIF 09/29/2016 DWAINE BENITO FIRE ADJUSTER Ot N39.0 URINARY TRACT INFECTION, SITE NOT SPECIF 09/30/2016 THONG DWAINE Rushing FIRE ADJUSTER Ot N39.0 URINARY TRACT INFECTION, SITE NOT SPECIF Procedures Code [place] [address] UA W/ CULTURE IF INDICATED 03/01/2012 23936 CULTURE URINE 71434 UA W/ CULTURE IF INDICATED 03/31/2012 88629 CULTURE URINE 08751 UA W/ CULTURE IF INDICATED 04/15/2012 67174 CULTURE URINE 08/2012 64383 INSERT BLADDER CATHETER 06/04/2012 61123 INSERT TEMP BLADDER CATH 06/17/2012 18654 INSERT BLADDER CATHETER 07/02/2012 14009 INSERT BLADDER CATHETER 07/16/2012 52211 UA LONG DIP 07/26 69768 CULTURE URINE 53071 INSERT TEMP BLADDER CATH 07/30/2012 74149 CMP 08/02/2012 19825 LIPID PANEL 08/02 52577 VITAMIN D 25-HYDROXY (D2,D3, TOTAL) 08/02/2012 87913 A1C (IN-HOUSE) 95334 TSH 08/02/2012 79800 CBC 08/02/2012 65767 MAMMOGRAM, SCREENING 11/30/2012 10147 UA LONG DIP 11/30 46652 CULTURE URINE 61209 CULTURE URINE 27779 CULTURE URINE 11/2012 85981 UA W/ CULTURE IF INDICATED 04/20/2013 77122 CULTURE URINE 01/2014 69042 CULTURE WOUND (AEROBIC) 05/23/2013 50366 A1C (IN-HOUSE) 05551 UA W/ CULTURE IF INDICATED 06/20/2013 00733 CULTURE URINE 01/2014 11178 INSERT TEMP BLADDER CATH 06/22/2013 00982 UA LONG DIP 07/01 34170 CULTURE URINE 20196 INSERT TEMP BLADDER CATH 07/06/2013 48773 INSERT TEMP BLADDER CATH 07/20/2013 23138 CULTURE WOUND (AEROBIC) 07/25/2013 97158 CULTURE URINE 42056 CULTURE WOUND (AEROBIC) 11/09/[address] PELVIS W/O CONTRAST 11/10/2013 28824 CULTURE WOUND (AEROBIC) 12/09/2013 14172 UA W/MICROSCOPY 12/16/2013 57876 UA W/MICROSCOPY 12/16/2013 57900 CULTURE URINE 12/2013 26516 CULTURE URINE 02/2014 20112 UA W/ CULTURE IF INDICATED 01/04/2014 95346 CULTURE URINE 06054 CULTURE URINE 54449 CULTURE URINE Results Test Result Range Complete urinalysis with reflex to culture - 01/30/16 16:15 Urine color determination YELLOW NRG Urine clarity determination CLEAR NRG Urine pH measurement by test strip 6.5 5 -9 Specific gravity of urine by test strip 1.010 1.016-1.022 Urine protein assay by test strip, semi-quantitative NEGATIVE NEGATIVE Urine glucose detection by automated test strip NEGATIVE NEGATIVE Erythrocytes detection in urine sediment by light microscopy 1+ NEGATIVE Urine ketones detection by automated test strip NEGATIVE NEGATIVE Urine nitrite detection by test strip NEGATIVE NEGATIVE Urine total bilirubin detection by test strip NEGATIVE NEGATIVE Urine urobilinogen measurement by automated test strip (mass/volume) NORMAL NORMAL Urine leukocyte esterase detection by dipstick 3+ NEGATIVE Automated urine sediment erythrocyte count by microscopy (number/high power field) [HPF] NRG Automated urine sediment leukocyte count by microscopy (number/high power field ) [HPF] NRG Bacteria detection in urine sediment by light microscopy MODERATE NRG Squamous epithelial cells detection in urine sediment by light microscopy 10-25 NRG Crystals detection in urine sediment by light microscopy PRESENT NRG Casts detection in urine sediment by light microscopy NONE NRG Mucus detection in urine sediment by light microscopy NEGATIVE NRG Complete urinalysis with reflex to culture YES NRG Renal epithelial cells detection in urine sediment by light microscopy 0-2 NRG Calcium oxalate crystals detection in urine sediment by light microscopy RARE NRG Bacterial urine culture - 01/30/16 16:15 Bacterial urine culture [id number] NRG COLONY COUNT >100,000/ML NRG FTX;REPORTABLE SENSITIVITY REPORTED AT 0803, 02-01-16 NRG URINE CULTURE RESULTS PLUS NR Bacterial susceptibility panel - 01/30/16 16:15 Gentamicin susceptibility test by minimum inhibitory concentration 4 NRG Tobramycin susceptibility test by minimum inhibitory concentration <= NRG Piperacillin/tazobactam susceptibility test by minimum inhibitory concentration 8 NRG Ciprofloxacin susceptibility test by minimum inhibitory concentration >= NRG Meropenem susceptibility test by minimum inhibitory concentration 1 NRG Cefepime susceptibility test by minimum inhibitory concentration 16 NRG Serum or plasma gentamicin measurement (mass/volume) - 02/04/16 00:15 Serum or plasma gentamicin measurement (mass/volume) 4.6 ug/ mL <=10.0 Whole blood basic metabolic panel - 02/04/16 15:40 Serum or plasma sodium measurement (moles/volume) 140 mmol/ L 135-145 Serum or plasma potassium measurement (moles/volume) 4.4 mmol/L 3.6-5.0 Serum or plasma chloride measurement (moles/volume) 103 mmol /L 98-107 Carbon dioxide 25 mmol/L 21-32 Serum or plasma anion gap determination (moles/volume) 12 mmol/L 5-14 Serum or plasma urea nitrogen measurement (mass/volume) 9 mg /dL 7-18 Serum or plasma creatinine measurement (mass/volume) 0.39 mg /dL 0.60-1.30 Serum or plasma urea nitrogen/creatinine mass ratio 23 NRG Serum or plasma creatinine measurement with calculation of estimated glomerular filtration rate > NRG Serum or plasma glucose measurement (mass/volume) 82 mg/dL 70-105 Serum or plasma calcium measurement (mass/volume) 9.6 mg/dL 8.5-10.1 Serum or plasma gentamicin measurement (mass/volume) - 02/05/16 00:15 Serum or plasma gentamicin measurement (mass/volume) 4.6 ug/ mL <=10.0 Complete urinalysis with reflex to culture - 02/08/16 15:55 Urine color determination YELLOW NRG Urine clarity determination CLEAR NRG Urine pH measurement by test strip 6 5- 9 Specific gravity of urine by test strip 1.020 1.016-1.022 Urine protein assay by test strip, semi-quantitative 1+ NEGATIVE Urine glucose detection by automated test strip NEGATIVE NEGATIVE Erythrocytes detection in urine sediment by light microscopy 5+ NEGATIVE Urine ketones detection by automated test strip NEGATIVE NEGATIVE Urine nitrite detection by test strip NEGATIVE NEGATIVE Urine total bilirubin detection by test strip NEGATIVE NEGATIVE Urine urobilinogen measurement by automated test strip (mass/volume) NORMAL NORMAL Urine leukocyte esterase detection by dipstick 2+ NEGATIVE Automated urine sediment erythrocyte count by microscopy (number/high power field) [HPF] NRG Automated urine sediment leukocyte count by microscopy (number/high power field ) [HPF] NRG Bacteria detection in urine sediment by light microscopy NEGATIVE NRG Squamous epithelial cells detection in urine sediment by light microscopy 2-5 NRG Crystals detection in urine sediment by light microscopy PRESENT NRG Casts detection in urine sediment by light microscopy NONE NRG Mucus detection in urine sediment by light microscopy NEGATIVE NRG Complete urinalysis with reflex to culture NO NRG Calcium oxalate crystals detection in urine sediment by light microscopy FEW NRG Bacterial urine culture - 02/08/16 15:55 Bacterial urine culture [id number] NRG COLONY COUNT 10,000/ML - 100,000/ML NRG FTX;REPORTABLE SENSITIVITY REPORTED 02/10/16 11:05 NRG Bacterial susceptibility panel - 02/08/16 15:55 Gentamicin susceptibility test by minimum inhibitory concentration R NRG Vancomycin susceptibility test by minimum inhibitory concentration 1 NRG Levofloxacin susceptibility test by minimum inhibitory concentration >= NRG Tetracycline susceptibility test by minimum inhibitory concentration >= NRG Ampicillin susceptibility test by minimum inhibitory concentration <= NRG Ciprofloxacin susceptibility test by minimum inhibitory concentration R NRG Nitrofurantoin susceptibility test by minimum inhibitory concentration <= NRG Linezolid susceptibility test by minimum inhibitory concentration 2 NRG Complete urinalysis with reflex to culture - 04/26/16 20:48 Urine color determination YELLOW NRG Urine clarity determination SLIGHTLY CLOUDY NRG Urine pH measurement by test strip 6 5- 9 Specific gravity of urine by test strip 1.010 1.016-1.022 Urine protein assay by test strip, semi-quantitative NEGATIVE NEGATIVE Urine glucose detection by automated test strip NEGATIVE NEGATIVE Erythrocytes detection in urine sediment by light microscopy 5+ NEGATIVE Urine ketones detection by automated test strip NEGATIVE NEGATIVE Urine nitrite detection by test strip NEGATIVE NEGATIVE Urine total bilirubin detection by test strip NEGATIVE NEGATIVE Urine urobilinogen measurement by automated test strip (mass/volume) NORMAL NORMAL Urine leukocyte esterase detection by dipstick NEGATIVE NEGATIVE Automated urine sediment erythrocyte count by microscopy (number/high power field) NONE NRG Automated urine sediment leukocyte count by microscopy (number/high power field ) NONE NRG Bacteria detection in urine sediment by light microscopy NONE NRG Squamous epithelial cells detection in urine sediment by light microscopy 0-2 NRG Crystals detection in urine sediment by light microscopy NONE NRG Casts detection in urine sediment by light microscopy NONE NRG Mucus detection in urine sediment by light microscopy NEGATIVE NRG Complete urinalysis with reflex to culture NO NRG Capillary blood glucose measurement by glucometer (mass/volume) - 05/17/16 02: 40 Capillary blood glucose measurement by glucometer (mass/volume) 96 mg/dL 70-110 Complete blood count (CBC) with automated white blood cell (WBC) differential - 05/17/16 03:50 Blood leukocytes automated count (number/volume) 9.3 10*3/ uL 4.3-11.0 Blood erythrocytes automated count (number/volume) 4.02 10*6 /uL 4.35-5.85 Venous blood hemoglobin measurement (mass/volume) 12.5 g/dL 11.5-16.0 Blood hematocrit (volume fraction) 39 % 35-52 Automated erythrocyte mean corpuscular volume 97 [foz_us] 80-99 Automated erythrocyte mean corpuscular hemoglobin (mass per erythrocyte) 31 pg 25-34 Automated erythrocyte mean corpuscular hemoglobin concentration measurement ( mass/volume) 32 g/dL 32-36 Automated erythrocyte distribution width ratio 14.3 % 10.0-14.5 Automated blood platelet count (count/volume) 245 10*3/uL 130-400 Automated blood platelet mean volume measurement 10.0 [foz_ us] 7.4-10.4 Automated blood neutrophils/100 leukocytes 46 % 42-75 Automated blood lymphocytes/100 leukocytes 39 % 12-44 Blood monocytes/100 leukocytes 11 % 0-12 Automated blood eosinophils/100 leukocytes 3 % 0-10 Automated blood basophils/100 leukocytes 0 % 0-10 Blood neutrophils automated count (number/volume) 4.3 10*3 1.8-7.8 Blood lymphocytes automated count (number/volume) 3.6 10*3 1.0-4.0 Blood monocytes automated count (number/volume) 1.0 10*3 0.0-1.0 Automated eosinophil count 0.3 10*3/uL 0.0-0.3 Automated blood basophil count (count/volume) 0.0 10*3/uL 0.0-0.1 Capillary blood glucose measurement by glucometer (mass/volume) - 05/18/16 05: 37 Capillary blood glucose measurement by glucometer (mass/volume) 86 mg/dL 70-110 Capillary blood glucose measurement by glucometer (mass/volume) - 05/18/16 08: 54 Capillary blood glucose measurement by glucometer (mass/volume) 89 mg/dL 70-110 Capillary blood glucose measurement by glucometer (mass/volume) - 05/19/16 05: 06 Capillary blood glucose measurement by glucometer (mass/volume) 95 mg/dL 70-110 Complete urinalysis with reflex to culture - 05/20/16 02:35 Urine color determination YELLOW NRG Urine clarity determination SLIGHTLY CLOUDY NRG Urine pH measurement by test strip 5 5- 9 Specific gravity of urine by test strip 1.020 1.016-1.022 Urine protein assay by test strip, semi-quantitative 1+ NEGATIVE Urine glucose detection by automated test strip NEGATIVE NEGATIVE Erythrocytes detection in urine sediment by light microscopy NEGATIVE NEGATIVE Urine ketones detection by automated test strip 1+ NEGATIVE Urine nitrite detection by test strip POSITIVE NEGATIVE Urine total bilirubin detection by test strip 1+ NEGATIVE Urine urobilinogen measurement by automated test strip (mass/volume) 1 mg/dL NORMAL Urine leukocyte esterase detection by dipstick 3+ NEGATIVE Automated urine sediment erythrocyte count by microscopy (number/high power field) NONE NRG Automated urine sediment leukocyte count by microscopy (number/high power field ) [HPF] NRG Bacteria detection in urine sediment by light microscopy LARGE NRG Squamous epithelial cells detection in urine sediment by light microscopy 2-5 NRG Crystals detection in urine sediment by light microscopy NONE NRG Casts detection in urine sediment by light microscopy NONE NRG Mucus detection in urine sediment by light microscopy NEGATIVE NRG Complete urinalysis with reflex to culture YES NRG Bacterial urine culture - 05/20/16 02:35 Bacterial urine culture [id number] NRG COLONY COUNT >100,000/ML NRG FTX;REPORTABLE SENSITIVITY REPORTED 05/21/16 7:45 NRG Bacterial susceptibility panel - 05/20/16 02:35 Gentamicin susceptibility test by minimum inhibitory concentration >= NRG Trimethoprim/sulfamethoxazole susceptibility test by minimum inhibitoryconcentration <= NRG Ampicillin susceptibility test by minimum inhibitory concentration >= NRG Tobramycin susceptibility test by minimum inhibitory concentration 8 NRG Cefazolin susceptibility test by minimum inhibitory concentration <= NRG Ceftriaxone susceptibility test by minimum inhibitory concentration <= NRG Ampicillin/sulbactam susceptibility test by minimum inhibitory concentration 16 NRG Piperacillin/tazobactam susceptibility test by minimum inhibitory concentration <= NRG Ciprofloxacin susceptibility test by minimum inhibitory concentration >= NRG Meropenem susceptibility test by minimum inhibitory concentration <= NRG Nitrofurantoin susceptibility test by minimum inhibitory concentration <= NRG Aztreonam susceptibility test by minimum inhibitory concentration <= NRG Extended spectrum beta lactamase (ESBL) producing bacteria susceptibility test by minimum inhibitory concentration - NRG Amikacin susceptibility test by minimum inhibitory concentration S NRG Complete blood count (CBC) with automated white blood cell (WBC) differential - 09/21/16 20:10 Blood leukocytes automated count (number/volume) 9.7 10*3/ uL 4.3-11.0 Blood erythrocytes automated count (number/volume) 4.75 10*6 /uL 4.35-5.85 Venous blood hemoglobin measurement (mass/volume) 14.5 g/dL 11.5-16.0 Blood hematocrit (volume fraction) 45 % 35-52 Automated erythrocyte mean corpuscular volume 96 [foz_us] 80-99 Automated erythrocyte mean corpuscular hemoglobin (mass per erythrocyte) 31 pg 25-34 Automated erythrocyte mean corpuscular hemoglobin concentration measurement ( mass/volume) 32 g/dL 32-36 Automated erythrocyte distribution width ratio 14.1 % 10.0-14.5 Automated blood platelet count (count/volume) 273 10*3/uL 130-400 Automated blood platelet mean volume measurement 9.8 [foz_us ] 7.4-10.4 Automated blood neutrophils/100 leukocytes 56 % 42-75 Automated blood lymphocytes/100 leukocytes 32 % 12-44 Blood monocytes/100 leukocytes 10 % 0-12 Automated blood eosinophils/100 leukocytes 2 % 0-10 Automated blood basophils/100 leukocytes 0 % 0-10 Blood neutrophils automated count (number/volume) 5.4 10*3 1.8-7.8 Blood lymphocytes automated count (number/volume) 3.1 10*3 1.0-4.0 Blood monocytes automated count (number/volume) 0.9 10*3 0.0-1.0 Automated eosinophil count 0.2 10*3/uL 0.0-0.3 Automated blood basophil count (count/volume) 0.0 10*3/uL 0.0-0.1 Complete urinalysis with reflex to culture - 09/21/16 20:10 Urine color determination YELLOW NRG Urine clarity determination CLEAR NRG Urine pH measurement by test strip 6 5- 9 Specific gravity of urine by test strip 1.020 1.016-1.022 Urine protein assay by test strip, semi-quantitative 1+ NEGATIVE Urine glucose detection by automated test strip NEGATIVE NEGATIVE Erythrocytes detection in urine sediment by light microscopy 1+ NEGATIVE Urine ketones detection by automated test strip NEGATIVE NEGATIVE Urine nitrite detection by test strip POSITIVE NEGATIVE Urine total bilirubin detection by test strip NEGATIVE NEGATIVE Urine urobilinogen measurement by automated test strip (mass/volume) 1 mg/dL NORMAL Urine leukocyte esterase detection by dipstick 3+ NEGATIVE Automated urine sediment erythrocyte count by microscopy (number/high power field) [HPF] NRG Automated urine sediment leukocyte count by microscopy (number/high power field ) [HPF] NRG Bacteria detection in urine sediment by light microscopy FEW NRG Squamous epithelial cells detection in urine sediment by light microscopy 2-5 NRG Crystals detection in urine sediment by light microscopy NONE NRG Casts detection in urine sediment by light microscopy NONE NRG Mucus detection in urine sediment by light microscopy NEGATIVE NRG Complete urinalysis with reflex to culture YES NRG Blood lactic acid measurement (moles/volume) - 09/21/16 20:10 Blood lactic acid measurement (moles/volume) 1.48 mmol/L 0.50-2.00 Comprehensive metabolic panel - 09/21/16 20:10 Serum or plasma sodium measurement (moles/volume) 141 mmol/ L 135-145 Serum or plasma potassium measurement (moles/volume) 4.0 mmol/L 3.6-5.0 Serum or plasma chloride measurement (moles/volume) 103 mmol /L 98-107 Carbon dioxide 25 mmol/L 21-32 Serum or plasma anion gap determination (moles/volume) 13 mmol/L 5-14 Serum or plasma urea nitrogen measurement (mass/volume) 11 mg/dL 7-18 Serum or plasma creatinine measurement (mass/volume) 0.42 mg /dL 0.60-1.30 Serum or plasma urea nitrogen/creatinine mass ratio 26 NRG Serum or plasma creatinine measurement with calculation of estimated glomerular filtration rate > NRG Serum or plasma glucose measurement (mass/volume) 90 mg/dL 70-105 Serum or plasma calcium measurement (mass/volume) 10.0 mg/ dL 8.5-10.1 Serum or plasma total bilirubin measurement (mass/volume) 0.4 mg/dL 0.1-1.0 Serum or plasma alkaline phosphatase measurement (enzymatic activity/volume) 58 U/L 40-136 Serum or plasma aspartate aminotransferase measurement (enzymatic activity/ volume) 38 U/L 5-34 Serum or plasma alanine aminotransferase measurement (enzymatic activity/volume ) 38 U/L 0-55 Serum or plasma protein measurement (mass/volume) 7.9 g/dL 6.4-8.2 Serum or plasma albumin measurement (mass/volume) 4.3 g/dL 3.2-4.5 Serum or plasma C reactive protein measurement (mass/volume) - 09/21/16 20:10 Serum or plasma C reactive protein measurement (mass/volume) 1.38 mg/dL 0.00-0.50 Bacterial urine culture - 09/21/16 20:10 Bacterial urine culture [id number] NRG COLONY COUNT 10,000/ML - 100,000/ML NRG FTX;REPORTABLE ID/SENSITIVITY TO FOLLOW NRG Bacterial blood culture - 09/21/16 20:10 Bacterial blood culture NG NRG Bacterial blood culture - 09/21/16 20:30 Bacterial blood culture NG [facility] Whole blood basic metabolic panel - 09/25/16 14:35 Serum or plasma sodium measurement (moles/volume) 140 mmol/ L 135-145 Serum or plasma potassium measurement (moles/volume) 4.2 mmol/L 3.6-5.0 Serum or plasma chloride measurement (moles/volume) 104 mmol /L 98-107 Carbon dioxide 26 mmol/L 21-32 Serum or plasma anion gap determination (moles/volume) 10 mmol/L 5-14 Serum or plasma urea nitrogen measurement (mass/volume) 9 mg /dL 7-18 Serum or plasma creatinine measurement (mass/volume) 0.40 mg /dL 0.60-1.30 Serum or plasma urea nitrogen/creatinine mass ratio 23 0-20 Serum or plasma creatinine measurement with calculation of estimated glomerular filtration rate > NRG Serum or plasma glucose measurement (mass/volume) 91 mg/dL 70-105 Serum or plasma calcium measurement (mass/volume) 9.5 mg/dL 8.5-10.1 Gentamicin trough - 09/25/16 14:35 Gentamicin trough 0.4 ug/mL <=2.0 Gentamicin trough - 09/29/16 14:50 Gentamicin trough 0.5 ug/mL <=2.0 Complete blood count (CBC) with automated white blood cell (WBC) differential - 10/17/16 22:19 Blood leukocytes automated count (number/volume) 9.7 10*3/ uL 4.3-11.0 Blood erythrocytes automated count (number/volume) 4.79 10*6 /uL 4.35-5.85 Venous blood hemoglobin measurement (mass/volume) 14.4 g/dL 11.5-16.0 Blood hematocrit (volume fraction) 46 % 35-52 Automated erythrocyte mean corpuscular volume 96 [foz_us] 80-99 Automated erythrocyte mean corpuscular hemoglobin (mass per erythrocyte) 30 pg 25-34 Automated erythrocyte mean corpuscular hemoglobin concentration measurement ( mass/volume) 31 g/dL 32-36 Automated erythrocyte distribution width ratio 14.1 % 10.0-14.5 Automated blood platelet count (count/volume) 284 10*3/uL 130-400 Automated blood platelet mean volume measurement 9.4 [foz_us ] 7.4-10.4 Automated blood neutrophils/100 leukocytes 53 % 42-75 Automated blood lymphocytes/100 leukocytes 35 % 12-44 Blood monocytes/100 leukocytes 9 % 0-12 Automated blood eosinophils/100 leukocytes 2 % 0-10 Automated blood basophils/100 leukocytes 0 % 0-10 Blood neutrophils automated count (number/volume) 5.1 10*3 1.8-7.8 Blood lymphocytes automated count (number/volume) 3.4 10*3 1.0-4.0 Blood monocytes automated count (number/volume) 0.9 10*3 0.0-1.0 Automated eosinophil count 0.2 10*3/uL 0.0-0.3 Automated blood basophil count (count/volume) 0.0 10*3/uL 0.0-0.1 PT panel in platelet poor plasma by coagulation assay - 10/17/16 22:19 Prothrombin time (PT) in platelet poor plasma by coagulation assay 12.8 s 12.2-14.7 INR in platelet poor plasma or blood by coagulation assay 1.0 0.8-1.4 Activated partial thromboplastin time (aPTT) in platelet poor plasma bycoagulation assay - 10/17/16 22:19 Activated partial thromboplastin time (aPTT) in platelet poor plasma bycoagulation assay 28 s 24-35 Comprehensive metabolic panel - 10/17/16 22:19 Serum or plasma sodium measurement (moles/volume) 142 mmol/ L 135-145 Serum or plasma potassium measurement (moles/volume) 4.3 mmol/L 3.6-5.0 Serum or plasma chloride measurement (moles/volume) 102 mmol /L 98-107 Carbon dioxide 24 mmol/L 21-32 Serum or plasma anion gap determination (moles/volume) 16 mmol/L 5-14 Serum or plasma urea nitrogen measurement (mass/volume) 10 mg/dL 7-18 Serum or plasma creatinine measurement (mass/volume) 0.57 mg /dL 0.60-1.30 Serum or plasma urea nitrogen/creatinine mass ratio 18 NRG Serum or plasma creatinine measurement with calculation of estimated glomerular filtration rate > NRG Serum or plasma glucose measurement (mass/volume) 162 mg/dL 70-105 Serum or plasma calcium measurement (mass/volume) 9.9 mg/dL 8.5-10.1 Serum or plasma total bilirubin measurement (mass/volume) 0.4 mg/dL 0.1-1.0 Serum or plasma alkaline phosphatase measurement (enzymatic activity/volume) 70 U/L 40-136 Serum or plasma aspartate aminotransferase measurement (enzymatic activity/ volume) 32 U/L 5-34 Serum or plasma alanine aminotransferase measurement (enzymatic activity/volume ) 30 U/L 0-55 Serum or plasma protein measurement (mass/volume) 7.9 g/dL 6.4-8.2 Serum or plasma albumin measurement (mass/volume) 4.4 g/dL 3.2-4.5 Magnesium - 10/17/16 22:19 Magnesium 2.4 mg/dL 1.8-2.4 Serum or plasma troponin i.cardiac measurement (mass/volume) - 10/17/16 22:19 Serum or plasma troponin i.cardiac measurement (mass/volume) < ng/mL <0.30 Myoglobin, serum - 10/17/16 22:19 Myoglobin, serum 22.9 ng/mL 10.0-92.0 Complete urinalysis with reflex to culture - 10/17/16 23:20 Urine color determination YELLOW NRG Urine clarity determination SLIGHTLY CLOUDY NRG Urine pH measurement by test strip 6.5 5 -9 Specific gravity of urine by test strip 1.010 1.016-1.022 Urine protein assay by test strip, semi-quantitative 1+ NEGATIVE Urine glucose detection by automated test strip NEGATIVE NEGATIVE Erythrocytes detection in urine sediment by light microscopy 1+ NEGATIVE Urine ketones detection by automated test strip NEGATIVE NEGATIVE Urine nitrite detection by test strip POSITIVE NEGATIVE Urine total bilirubin detection by test strip NEGATIVE NEGATIVE Urine urobilinogen measurement by automated test strip (mass/volume) NORMAL NORMAL Urine leukocyte esterase detection by dipstick 3+ NEGATIVE Automated urine sediment erythrocyte count by microscopy (number/high power field) NONE NRG Automated urine sediment leukocyte count by microscopy (number/high power field ) [HPF] NRG Bacteria detection in urine sediment by light microscopy LARGE NRG Squamous epithelial cells detection in urine sediment by light microscopy 5-10 NRG Crystals detection in urine sediment by light microscopy NONE NRG Casts detection in urine sediment by light microscopy NONE NRG Mucus detection in urine sediment by light microscopy NEGATIVE NRG Complete urinalysis with reflex to culture YES NRG Bacterial urine culture - 10/17/16 23:20 Bacterial urine culture [id number] NRG COLONY COUNT >100,000/ML NRG FTX;REPORTABLE SENSITIVITY REPORTED 10/18/16 17:15 NR Bacterial susceptibility panel - 10/17/16 23:20 Gentamicin susceptibility test by minimum inhibitory concentration >= NRG Trimethoprim/sulfamethoxazole susceptibility test by minimum inhibitoryconcentration <= NRG Ampicillin susceptibility test by minimum inhibitory concentration >= NRG Tobramycin susceptibility test by minimum inhibitory concentration 8 NRG Cefazolin susceptibility test by minimum inhibitory concentration <= NRG Ceftriaxone susceptibility test by minimum inhibitory concentration <= NRG Ampicillin/sulbactam susceptibility test by minimum inhibitory concentration 16 NRG Piperacillin/tazobactam susceptibility test by minimum inhibitory concentration <= NRG Ciprofloxacin susceptibility test by minimum inhibitory concentration >= NRG Meropenem susceptibility test by minimum inhibitory concentration <= NRG Nitrofurantoin susceptibility test by minimum inhibitory concentration <= NRG Aztreonam susceptibility test by minimum inhibitory concentration <= NRG Extended spectrum beta lactamase (ESBL) producing bacteria susceptibility test by minimum inhibitory concentration - NR Amikacin susceptibility test by minimum inhibitory concentration S NRG Serum or plasma troponin i.cardiac measurement (mass/volume) - 10/18/16 00:18 Serum or plasma troponin i.cardiac measurement (mass/volume) < ng/mL <0.30 Encounters ACCT No. Visit Date/Time Discharge Status Pt. Type Provider Facility Loc./Unit Complaint [id number] 07/26/2014 16:57:00 07/26/2014 23: 59:59 [facility] Outpatient WDAINE BENITO APRN [id number] 07/19/2014 17:04:00 07/19/2014 23: 59:59 [facility] Outpatient DWAINE BENITO APRN Сергей [id number] 07/05/2014 16:59:00 07/05/2014 23: 59:59 [facility] Outpatient DWAINE BENITO APRN [id number] 06/21/2014 16:55:00 06/21/2014 23: 59:59 [facility] Outpatient DWAINE BENITO APRN [id number] 05/24/2014 16:53:00 05/24/2014 23: 59:59 [facility] Outpatient DWAINE BENITO APRN [id number] 05/03/2014 18:27:00 05/03/2014 23: 59:59 [facility] Outpatient DWAINE BENITO APRN Сергей [id number] 04/26/2014 17:01:00 04/26/2014 23: 59:59 [facility] Outpatient DWAINE BENITO APRN Сергей [id number] 04/12/2014 15:47:00 04/12/2014 23: 59:59 [facility] Outpatient DWAINE BENITO APRN [id number] 03/29/2014 17:08:00 03/29/2014 23: 59:59 [facility] Outpatient DWAINE BENITO APRN Сергей [id number] 03/24/2014 15:18:00 03/24/2014 23: 59:59 [facility] Outpatient DWAINE BENITO APRN Сергей [id number] 03/15/2014 16:56:00 03/15/2014 23: 59:59 [facility] Outpatient GILBERTO PRICE DO [id number] 03/03/2014 15:57:00 03/03/2014 23: 59:59 [facility] Outpatient DWAINE BENITO APRN Сергей [id number] 02/25/2014 14:23:00 02/25/2014 23: 59:59 [facility] Outpatient THOGN SAAVEDRANDWAINE Сергей [id number] 02/15/2014 17:12:00 02/15/2014 23: 59:59 [facility] Outpatient DWAINE BENITO APRN [id number] 02/01/2014 16:57:00 02/01/2014 23: 59:59 [facility] Outpatient DWAINE BENITO APRN [id number] 01/18/2014 16:59:00 01/18/2014 23: 59:59 CLS Outpatient GILBERTO PRICE DO [id number] 01/16/2014 14:37:00 01/16/2014 23: 59:59 [facility] Outpatient DWAINE BENITO APRN [id number] 01/04/2014 16:56:00 01/04/2014 23: 59:59 [facility] Outpatient DWAINE BENITO APRN [id number] 01/04/2014 16:56:00 01/04/2014 23: 59:59 CLS Outpatient NEIDA TALBOT MD [id number] 12/22/2013 14:42:00 12/22/2013 23: 59:59 [facility] Outpatient DWAINE BENITO APRN [id number] 12/21/2013 16:52:00 12/21/2013 23: 59:59 [facility] Outpatient DWAINE BENITO APRN [id number] 12/16/2013 15:18:00 12/16/2013 23: 59:59 [facility] Outpatient DWAINE BENITO APRN [id number] 12/07/2013 16:35:00 12/07/2013 23: 59:59 [facility] Outpatient DWAINE BENITO APRN [id number] 12/02/2013 15:16:00 12/02/2013 23: 59:59 [facility] Outpatient DWAINE BENITO APRN [id number] 11/09/2013 16:52:00 11/09/2013 23: 59:59 CLS Outpatient NEIDA TALBOT MD [id number] 11/04/2013 14:43:00 11/04/2013 23: 59:59 [facility] Outpatient DWAINE BENITO APRN [id number] 10/26/2013 17:00:00 10/26/2013 23: 59:59 [facility] Outpatient DWAINE BENITO APRN [id number] 10/12/2013 17:02:00 10/12/2013 23: 59:59 [facility] Outpatient DWAINE BENITO APRN [id number] 09/28/2013 16:56:00 09/28/2013 23: 59:59 [facility] Outpatient DWAINE BENITO APRN [id number] 09/14/2013 16:34:00 09/14/2013 23: 59:59 [facility] Outpatient DWAINE BENITO APRN [id number] 08/31/2013 16:23:00 08/31/2013 23: 59:59 [facility] Outpatient DWAINE BENITO APRN [id number] 08/16/2013 11:31:00 08/16/2013 23: 59:59 [facility] Outpatient DWAINE BENITO APRN [id number] 08/03/2013 16:56:00 08/03/2013 23: 59:59 CLS Outpatient NEIDA TALBOT MD [id number] 07/25/2013 15:43:00 07/25/2013 23: 59:59 [facility] Outpatient DWAINE BENITO APRN [id number] 07/20/2013 16:34:00 07/20/2013 23: 59:59 [facility] Outpatient DWAINE BENITO APRN [id number] 07/12/2013 16:40:00 07/12/2013 23: 59:59 [facility] Outpatient DWAINE BENITO APRN [id number] 07/06/2013 16:45:00 07/06/2013 23: 59:59 [facility] Outpatient DWAINE BENITO APRN [id number] 06/28/2013 11:26:00 06/28/2013 23: 59:59 [facility] Outpatient DWAINE BENITO APRN [id number] 06/27/2013 14:41:00 06/27/2013 23: 59:59 [facility] Outpatient DWAINE BENTIO APRN [id number] 06/22/2013 16:40:00 06/22/2013 23: 59:59 [facility] Outpatient DWAINE BENITO APRN [id number] 06/22/2013 16:40:00 06/22/2013 23: 59:59 [facility] Outpatient DWAINE BENITO APRN [id number] 06/20/2013 09:07:00 06/20/2013 23: 59:59 [facility] Outpatient DWAINE BENITO APRN [id number] 06/14/2013 15:48:00 06/14/2013 23: 59:59 CLS Outpatient YE ANDRADE MD [id number] 06/08/2013 16:29:00 06/08/2013 23: 59:59 C[facility] Outpatient DWAINE BENITO APRN [id number] 05/25/2013 16:54:00 05/25/2013 23: 59:59 [facility] Outpatient DWAINE BENITO APRN [id number] 05/23/2013 14:07:00 05/23/2013 23: 59:59 [facility] Outpatient DWAINE BENITO APRN [id number] 05/11/2013 17:01:00 05/11/2013 23: 59:59 [facility] Outpatient DWAINE BENITO APRN [id number] 04/27/2013 17:06:00 04/27/2013 23: 59:59 [facility] Outpatient DWAINE BENITO APRN [id number] 04/20/2013 08:39:00 04/20/2013 23: 59:59 [facility] Outpatient DWAINE BENITO APRN [id number] 04/12/2013 11:34:00 04/12/2013 23: 59:59 [facility] Outpatient DWAINE BENITO APRN [id number] 03/30/2013 16:43:00 03/30/2013 23: 59:59 [facility] Outpatient DWAINE BENITO APRN [id number] 03/16/2013 16:31:00 03/16/2013 23: 59:59 CLS Outpatient NEIDA TALBOT MD [id number] 03/11/2013 09:19:00 03/11/2013 23: 59:59 [facility] Outpatient DWAINE BENITO APRN [id number] 03/02/2013 16:47:00 03/02/2013 23: 59:59 CLS Outpatient NEIDA TALBOT MD [id number] 02/16/2013 16:40:00 02/16/2013 23: 59:59 [facility] Outpatient DWAINE BENITO APRN [id number] 02/02/2013 17:02:00 02/02/2013 23: 59:59 CLS Outpatient NEIDA TALBOT MD [id number] 01/19/2013 16:46:00 01/19/2013 23: 59:59 CLS Outpatient DWAINE BENITO APRN [id number] 01/05/2013 16:36:00 01/05/2013 23: 59:59 CLS Outpatient DWAINE BENITO APRN [id number] 07/14/2012 16:52:00 07/14/2012 23: 59:59 CLS Outpatient DWAINE BENITO APRN [id number] 06/30/2012 16:49:00 06/30/2012 23: 59:59 CLS Outpatient [id number] 06/16/2012 17:03:00 06/16/2012 23: 59:59 CLS Outpatient [id number] 06/02/2012 16:24:00 06/02/2012 23: 59:59 CLS Outpatient DWAINE BENITO APRN [id number] 05/19/2012 14:49:00 05/19/2012 23: 59:59 CLS Outpatient [id number] 05/05/2012 16:58:00 05/05/2012 23: 59:59 CLS Outpatient [id number] 04/21/2012 17:06:00 04/21/2012 23: 59:59 CLS Outpatient DWAINE BENITO APRN [id number] 04/15/2012 08:42:00 04/15/2012 23: 59:59 CLS Outpatient GILBERTO PRICE DO [id number] 04/07/2012 17:05:00 04/07/2012 23: 59:59 CLS Outpatient [id number] 03/31/2012 16:28:00 03/31/2012 23: 59:59 CLS Outpatient NEIDA TALBOT MD [id number] 03/24/2012 17:13:00 03/24/2012 23: 59:59 CLS Outpatient THONG HODGES DWAINE Сергей [id number] 02/11/2012 16:58:00 02/11/2012 23: 59:59 CLS Outpatient THONG SAAVEDRADWAINE Arredondo [id number] 11/23/2013 16:48:00 Document Registration [id number] 12/15/2012 16:50:00 Document Registration [id number] 12/01/2012 16:44:00 Document Registration [id number] 10/06/2012 16:58:00 Document Registration [id number] 09/30/2012 16:25:00 Document Registration [id number] 09/22/2012 16:17:00 Document Registration [id number] 09/13/2012 17:44:00 Document Registration [id number] 09/08/2012 16:49:00 Document Registration [id number] 08/11/2012 14:50:00 Document Registration [id number] 07/28/2012 14:23:00 Document Registration [id number] 07/26/2012 08:56:00 Document Registration [id number] 07/23/2012 15:29:00 Document Registration
== END 2016-10-18 01:50 | disposition home or self-care (01) ==
LOC: EDUNIT# 21:53 → ER 21:54
DX: N39.0 Urinary tract infection, site not specified (principal); F41.9 Anxiety disorder, unspecified; E11.9 Type 2 diabetes mellitus without complications; Z77.22 Contact with and (suspected) exposure to environmental tobacco smoke (acute) (chronic); Z98.1 Arthrodesis status; Z79.84 Long term (current) use of oral hypoglycemic drugs; Z96.0 Presence of urogenital implants; Z87.01 Personal history of pneumonia (recurrent); Z87.442 Personal history of urinary calculi
CPT/HCPCS: 36415; 71010; 80053; 81000; 83735; 83874; 84484; 85025; 85610; 85730; 87088; 87186; 93005; 93041

== ENCOUNTER 2016-12-23 21:40 | Emergency (ER) | payer MEDICAID ==
[~2016-12-23] VITALS: Ht 154.9 cm; Wt 59.0 kg
[~2016-12-23 21:40] MED LIST changes: +DIPH1TAB25
--- OUTSIDE RECORDS SUMMARY | 2016-12-23 21:48 | XMS REPORT | Clinical Summary ---
Author Author [facility] Organization [facility] Address Unknown Phone Unavailable Care Team Providers Care Coal Shooter Name Role Phone PCP Unavailable Source Comments Some departments are not documenting in the electronic medical record. If you do not see the information that you expected, contact Release of Information in the Health Information Management department at [phone] for further assistance in locating additional records.[facility] Allergies Active Allergy Reactions Severity Noted Date Comments Erythromycin STOMACH UPSET 03/23/2008 All mycins Iodine HIVES 03/23/2008 Tolerates "BetaCept," Not Betadine. Iodinated Contrast- Oral HIVES 03/23/2008 Major Reaction to And Iv Dye Contrast. Latex HIVES, RASH, REDNESS 03/23/2008 Sulfa (Sulfonamide STOMACH UPSET 03/23/2008 Antibiotics) Current Medications Prescription Sig. Disp. Refills [...] 07/12/2008 Alcohol Use Drinks/Week oz/Week Comments No Sex Assigned at Date Recorded Not on file Last Filed Vital Signs Vital Sign Reading Time Taken Blood Pressure 114/70 03/31/2009 6:00 AM [employer] Pulse 80 03/31/2009 6:00 AM [employer] Temperature 36.6 C (97.9 F) 03/31/2009 6:00 AM [employer] Respiratory Rate - - Oxygen Saturation 95% 03/31/2009 6:00 AM [employer] Inhaled Oxygen - - Concentration Weight 68.1 kg (150 lb 2.1 oz) 03/23/2009 3:00 PM [employer] Height 154.9 cm (5' 1") 03/23/2009 3:00 PM [employer] Body Mass Index 28.37 03/23/2009 3:00 PM [employer] Plan of Treatment Health Maintenance Due Date Last Done Comments HEPATITIS C SCREENING 1958 PHYSICAL (COMPREHENSIVE) 1965 EXAM PERTUSSIS VACCINE 1969 TETANUS VACCINE 11/03/1975 CERVICAL CANCER SCREENING 1988 BREAST CANCER SCREENING 1998 COLORECTAL CANCER 2008 SCREENING INFLUENZA VACCINE 12/12/2016 Results Not on filefrom Last 3 Months
--- OUTSIDE RECORDS SUMMARY | 2016-12-23 21:49 | XMS REPORT ---
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 Active 559298958 Problem Hypoglycemia E16.2 Active 167055008 Problem Constipation by delayed colonic transit K59.01 Active 83217704 Problem Mood disorder F39 Active 20276450 Problem Type 2 diabetes mellitus without complications E11.9 Active 389609497 Problem Neuropathy G62.9 Active 367245409 Problem Pressure ulcer of left hip, stage 2 L89.222 Active 072159357 Problem Controlled type 2 diabetes mellitus without complication, without long -term current use of insulin E11.9 Active 037693970 ALLERGIES Unknown Allergies SOCIAL HISTORY No smoking Hx information available PLAN OF CARE VITAL SIGNS MEDICATIONS Medication Instructions Dosage Frequency Start Date End Date Duration Status Magnesium Citrate 1.745 GM/30ML Orally Once a day as needed for constipation 30 ml Apr, Active RESULTS No Results PROCEDURES No Known procedures IMMUNIZATIONS No Known Immunizations
--- OUTSIDE RECORDS SUMMARY | 2016-12-23 21:49 | XMS REPORT ---
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 Active 686748706 Problem Hypoglycemia E16.2 Active 093681331 Problem Constipation by delayed colonic transit K59.01 Active 60546308 Problem Mood disorder F39 Active 32698436 Problem Type 2 diabetes mellitus without complications E11.9 Active 263161382 Problem Neuropathy G62.9 Active 696429344 Problem Pressure ulcer of left hip, stage 2 L89.222 Active 776288870 Problem Controlled type 2 diabetes mellitus without complication, without long -term current use of insulin E11.9 Active 007067966 ALLERGIES Substance Reaction Event Type Date Status Latex Gloves hives Drug Allergy Apr, Active Voriconazole Unknown Drug Allergy Apr, Active Macrobid constipation Drug Allergy Apr, Active Erythromycin nausea Drug Allergy Apr, Active Ceftin Unknown Drug Allergy Apr, Active Bactrim DS rash Drug Allergy Apr, Active CT dye hives Non Drug Allergy Apr, Active SOCIAL HISTORY No smoking Hx information available PLAN OF CARE VITAL SIGNS Height 61 in 2016-05-08 Temperature 98.0 degrees Fahrenheit 2016-05-08 Heart Rate 76 bpm 2016-05-08 Respiratory Rate 22 2016-05-08 Blood pressure systolic 118 mmHg 2016-05-08 Blood pressure diastolic 74 mmHg 2016-05-08 MEDICATIONS Medication Instructions Dosage Frequency Start Date End Date Duration Status Xanax 0.5 MG Orally Three times a day 1 tablet 8h Active [place] 10-325 MG Orally every 6 hrs 1 tablet as needed 6h Apr, 28 days Active Probiotic - Active Macrobid 100 MG Orally every 12 hrs 1 capsule with food 12h Apr, Apr, 10 days Active Cranberry 400 MG Orally Three times a day 1 capsule with meals 8h Active Lomotil 2.5-0.025 MG Orally Four times a day 1 tablet as needed 6h Apr, Active Zofran 8 MG Orally 3 times a day 1 tablet 8h 17 Apr, 2016 Active Metformin HCl 850 TAKE ONE TABLET BY MOUTH THREE TIMES A DAY WITH MEALS 30 Active Fluticasone Propionate 50 MCG/ACT Nasally Once a day 1 spray in each nostril 24h 15 Dec, 2015 30 day(s) Active Parafon Forte DSC 500 MG Orally 2 times a day 1 tablet 12h Apr, Jun, 30 day(s) Active RESULTS No Results PROCEDURES Procedure Date Ordered Related Diagnosis Body Site Office Visit, Est Pt., Level 2 May 08, 2016 IMMUNIZATIONS No Known Immunizations
--- OUTSIDE RECORDS SUMMARY | 2016-12-23 21:50 | XMS REPORT ---
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 Active 582046486 Problem Hypoglycemia E16.2 Active 735031765 Problem Constipation by delayed colonic transit K59.01 Active 20938524 Problem Mood disorder F39 Active 88446597 Problem Type 2 diabetes mellitus without complications E11.9 Active 684590486 Problem Neuropathy G62.9 Active 073256511 Problem Pressure ulcer of left hip, stage 2 L89.222 Active 851934699 Problem Controlled type 2 diabetes mellitus without complication, without long -term current use of insulin E11.9 Active 448808888 ALLERGIES Unknown Allergies SOCIAL HISTORY No smoking Hx information available PLAN OF CARE VITAL SIGNS MEDICATIONS Medication Instructions Dosage Frequency Start Date End Date Duration Status Macrobid 100 MG Orally every 12 hrs 1 capsule with food 12h Apr, Apr, 10 days Active Lomotil 2.5-0.025 MG Orally Four times a day 1 tablet as needed 6h Apr, Active RESULTS No Results PROCEDURES No Known procedures IMMUNIZATIONS No Known Immunizations
--- OUTSIDE RECORDS SUMMARY | 2016-12-23 21:51 | XMS REPORT ---
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 Active 178481406 Problem Hypoglycemia E16.2 Active 585408851 Problem Constipation by delayed colonic transit K59.01 Active 69590674 Problem Mood disorder F39 Active 44988614 Problem Type 2 diabetes mellitus without complications E11.9 Active 801088630 Problem Pressure ulcer of right ischium, 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 Active 839050775 Problem Pressure ulcer of left hip, stage 2 L89.222 Active 886598104 Problem Controlled type 2 diabetes mellitus without complication, without long -term current use of insulin E11.9 Active 300945100 ALLERGIES Substance Reaction Event Type Date Status Latex Gloves hives Drug Allergy Mar, Active Voriconazole Unknown Drug Allergy Mar, Active Macrobid constipation Drug Allergy Mar, Active Erythromycin nausea Drug Allergy Mar, Active Ceftin Unknown Drug Allergy Mar, Active Bactrim DS rash Drug Allergy Mar, Active CT dye hives Non Drug Allergy Mar, Active SOCIAL HISTORY No smoking Hx information available PLAN OF CARE VITAL SIGNS Height 61 in 2016-04-10 Temperature 98.1 degrees Fahrenheit 2016-04-10 Heart Rate 84 bpm 2016-04-10 Respiratory Rate 20 2016-04-10 Blood pressure systolic 114 mmHg 2016-04-10 Blood pressure diastolic 72 mmHg 2016-04-10 MEDICATIONS Medication Instructions Dosage Frequency Start Date End Date Duration Status Probiotic - Active Cranberry 400 MG Orally Three times a day 1 capsule with meals 8h Active Pyridium 100 MG Orally 3 times a day 1 capsule 8h Mar, Apr, 03 days Active Xanax 0.5 MG Orally Three times a day 1 tablet 8h Active [place] 10-325 MG Orally every 6 hrs 1 tablet as needed 6h Jul, Active Metformin HCl 850 TAKE ONE TABLET BY MOUTH THREE TIMES A DAY WITH MEALS 30 Active RESULTS No Results PROCEDURES Procedure Date Ordered Related Diagnosis Body Site Office Visit, Est Pt., Level 2 Apr 10, 2016 IMMUNIZATIONS No Known Immunizations
--- OUTSIDE RECORDS SUMMARY | 2016-12-23 21:51 | XMS REPORT ---
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 Active 637429920 Problem Hypoglycemia E16.2 Active 445991901 Problem Constipation by delayed colonic transit K59.01 Active 46965871 Problem Mood disorder F39 Active 98448724 Problem Type 2 diabetes mellitus without complications E11.9 Active 043269298 Problem Pressure ulcer of right ischium, 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 Active 757546328 Problem Pressure ulcer of left hip, stage 2 L89.222 Active 374115552 Problem Controlled type 2 diabetes mellitus without complication, without long -term current use of insulin E11.9 Active 647159151 ALLERGIES Unknown Allergies SOCIAL HISTORY No smoking Hx information available PLAN OF CARE VITAL SIGNS MEDICATIONS Medication Instructions Dosage Frequency Start Date End Date Duration Status [place] 10-325 MG Orally every 6 hrs 1 tablet as needed 6h Apr, 28 days Active RESULTS No Results PROCEDURES No Known procedures IMMUNIZATIONS No Known Immunizations
--- OUTSIDE RECORDS SUMMARY | 2016-12-23 21:52 | XMS REPORT ---
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 Active 750936418 Problem Hypoglycemia E16.2 Active 374748684 Problem Constipation by delayed colonic transit K59.01 Active 53535263 Problem Mood disorder F39 Active 21965590 Problem Type 2 diabetes mellitus without complications E11.9 Active 367533897 Problem Pressure ulcer of right ischium, 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 Active 774956085 Problem Pressure ulcer of left hip, stage 2 L89.222 Active 455323047 Problem Controlled type 2 diabetes mellitus without complication, without long -term current use of insulin E11.9 Active 063852689 ALLERGIES Unknown Allergies SOCIAL HISTORY No smoking Hx information available PLAN OF CARE VITAL SIGNS MEDICATIONS Medication Instructions Dosage Frequency Start Date End Date Duration Status Macrobid 100 MG Orally every 12 hrs 1 capsule with food 12h 18 Mar, 2016 Mar, 10 days Active RESULTS No Results PROCEDURES No Known procedures IMMUNIZATIONS No Known Immunizations
--- OUTSIDE RECORDS SUMMARY | 2016-12-23 21:52 | XMS REPORT ---
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 Active 638446879 Problem Hypoglycemia E16.2 Active 071589628 Problem Constipation by delayed colonic transit K59.01 Active 32882727 Problem Mood disorder F39 Active 06205770 Problem Type 2 diabetes mellitus without complications E11.9 Active 013602673 Problem Neuropathy G62.9 Active 463909425 Problem Pressure ulcer of left hip, stage 2 L89.222 Active 026548929 Problem Controlled type 2 diabetes mellitus without complication, without long -term current use of insulin E11.9 Active 924694879 ALLERGIES Substance Reaction Event Type Date Status [...] times a day 1 tablet 8h Active [place] 10-325 MG Orally every 6 hrs 1 tablet as needed 6h Apr, 28 days Active Parafon Forte DSC 500 MG Orally 2 times a day 1 tablet 12h Apr, Jun, 30 day(s) Active Metformin HCl 850 TAKE ONE TABLET BY MOUTH THREE TIMES A DAY WITH MEALS 30 Active Macrobid 100 MG Orally every 12 hrs 1 capsule with food 12h Apr, Apr, 10 days Active Zofran 8 MG Orally 3 times a day 1 tablet 8h Apr, Active Probiotic - Active Lomotil 2.5-0.025 MG Orally Four times a day 1 tablet as needed 6h Apr, Active Cranberry 400 MG Orally Three times a day 1 capsule with meals 8h Active RESULTS No Results PROCEDURES Procedure Date Ordered Related Diagnosis Body Site Office Visit, Est Pt., Level 2 Apr 29, 2016 IMMUNIZATIONS No Known Immunizations
--- OUTSIDE RECORDS SUMMARY | 2016-12-23 21:53 | XMS REPORT ---
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 Active 825457409 Problem Hypoglycemia E16.2 Active 236196097 Problem Constipation by delayed colonic transit K59.01 Active 94594462 Problem Mood disorder F39 Active 84635709 Problem Type 2 diabetes mellitus without complications E11.9 Active 112721304 Problem Neuropathy G62.9 Active 673402158 Problem Pressure ulcer of left hip, stage 2 L89.222 Active 166687753 Problem Controlled type 2 diabetes mellitus without complication, without long -term current use of insulin E11.9 Active 621872189 ALLERGIES Unknown Allergies SOCIAL HISTORY No smoking Hx information available PLAN OF CARE VITAL SIGNS MEDICATIONS Medication Instructions Dosage Frequency Start Date End Date Duration Status Fluticasone Propionate 50 MCG/ACT Nasally Once a day 1 spray in each nostril 24h 15 Dec, 2015 30 day(s) Active RESULTS No Results PROCEDURES No Known procedures IMMUNIZATIONS No Known Immunizations
--- OUTSIDE RECORDS SUMMARY | 2016-12-23 21:54 | XMS REPORT ---
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 Active 335285685 Problem Hypoglycemia E16.2 Active 572855781 Problem Constipation by delayed colonic transit K59.01 Active 17073022 Problem Mood disorder F39 Active 44205932 Problem Type 2 diabetes mellitus without complications E11.9 Active 458219452 Problem Neuropathy G62.9 Active 654341598 Problem Pressure ulcer of left hip, stage 2 L89.222 Active 007044578 Problem Controlled type 2 diabetes mellitus without complication, without long -term current use of insulin E11.9 Active 475441606 ALLERGIES Substance Reaction Event Type Date Status [...] OF CARE VITAL SIGNS Height 61 in 2016-04-24 Temperature 98.5 degrees Fahrenheit 2016-04-24 Heart Rate 78 bpm 2016-04-24 Respiratory Rate 24 2016-04-24 Blood pressure systolic 108 mmHg 2016-04-24 Blood pressure diastolic 78 mmHg 2016-04-24 MEDICATIONS Medication Instructions Dosage Frequency Start Date End Date Duration Status Metformin HCl 850 TAKE ONE TABLET BY MOUTH THREE TIMES A DAY WITH MEALS 30 Active [place] 10-325 MG Orally every 6 hrs 1 tablet as needed 6h Apr, 28 days Active Parafon Forte DSC 500 MG Orally 2 times a day 1 tablet 12h Apr, Jun, 30 day(s) Active Cranberry 400 MG Orally Three times a day 1 capsule with meals 8h Active Xanax 0.5 MG Orally Three times a day 1 tablet 8h Active Probiotic - Active RESULTS Name Result Date Reference Range CULTURE, URINE 2016-04-24 Urine Culture, Routine Preliminary report Result 1 Gram negative rods CULTURE, URINE 2016-04-24 Urine Culture, Routine Final report Result 1 Antimicrobial Susceptibility PROCEDURES Procedure Date Ordered Related Diagnosis Body Site Office Visit, Est Pt., Level 2 Apr 24, 2016 LAB NOT BILLED BY [facility] Apr 24, 2016 IMMUNIZATIONS No Known Immunizations
--- OUTSIDE RECORDS SUMMARY | 2016-12-23 21:54 | XMS REPORT ---
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 Active 617255354 Problem Hypoglycemia E16.2 Active 894303913 Problem Constipation by delayed colonic transit K59.01 Active 60072251 Problem Mood disorder F39 Active 77439027 Problem Type 2 diabetes mellitus without complications E11.9 Active 789059301 Problem Neuropathy G62.9 Active 868516991 Problem Pressure ulcer of left hip, stage 2 L89.222 Active 872094901 Problem Controlled type 2 diabetes mellitus without complication, without long -term current use of insulin E11.9 Active 940772417 ALLERGIES Unknown Allergies SOCIAL HISTORY No smoking Hx information available PLAN OF CARE VITAL SIGNS MEDICATIONS Unknown Medications RESULTS No Results PROCEDURES No Known procedures IMMUNIZATIONS No Known Immunizations
--- OUTSIDE RECORDS SUMMARY | 2016-12-23 21:56 | XMS REPORT ---
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 Active 843969122 Problem Hypoglycemia E16.2 Active 467627508 Problem Constipation by delayed colonic transit K59.01 Active 78060916 Problem Mood disorder F39 Active 22695848 Problem Type 2 diabetes mellitus without complications E11.9 Active 226548965 Problem Pressure ulcer of right ischium, 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 Active 854737798 Problem Pressure ulcer of left hip, stage 2 L89.222 Active 613933897 Problem Controlled type 2 diabetes mellitus without complication, without long -term current use of insulin E11.9 Active 114724097 ALLERGIES Substance Reaction Event Type Date Status [...] OF CARE VITAL SIGNS Height 61 in 2016-03-27 Temperature 98.5 degrees Fahrenheit 2016-03-27 Heart Rate 82 bpm 2016-03-27 Respiratory Rate 18 2016-03-27 Blood pressure systolic 98 mmHg 2016-03-27 Blood pressure diastolic 64 mmHg 2016-03-27 MEDICATIONS Medication Instructions Dosage Frequency Start Date End Date Duration Status Diflucan 150 MG Orally Once a day 1 tablet 24h Mar, 03 days Active [place] 10-325 MG Orally every 6 hrs 1 tablet as needed 6h Jul, Active Metformin HCl 500 MG Orally Twice a day 1 tablet with meals 12h Active RESULTS Name Result Date Reference Range CULTURE, URINE 2016-03-27 Urine Culture, Routine Preliminary report Result 1 Gram negative rods CULTURE, URINE 2016-03-27 Urine Culture, Routine Final report Result 1 Antimicrobial Susceptibility PROCEDURES Procedure Date Ordered Related Diagnosis Body Site Office Visit, Est Pt., Level 2 Mar 27, 2016 FLUARIX QUAD P-FREE 3 AND UP .50 2015Mar 27, 2016 LAB NOT BILLED BY [facility] Mar 27, 2016 SINGLE IMMUNIZATION ADMIN Mar 27, 2016 IMMUNIZATIONS Vaccine Route Administration Date Status FLUARIX QUAD P-FREE 3 AND UP .50 2015 IM Intramuscular Mar 27, 2016 Administered
[2016-12-23 22:35] LABS: BILIRUBIN,URINE NEGATIVE (NEGATIVE); KETONES,URINE NEGATIVE (NEGATIVE); LEUKOCYTE ESTERASE ,URINE 3+ (NEGATIVE); NITRITE,URINE POSITIVE (NEGATIVE); PH,URINE 6 (5-9); PROTEIN,URINE NEGATIVE (NEGATIVE); UROBILINOGEN,URINE NORMAL (NORMAL)
[2016-12-23 22:45] LABS: SQUAMOUS EPITHELIAL CELL,UR 0-2 /HPF
[2016-12-23] MEDS ORDERED: fentaNYL INJECTION 100 MCG/2 ML AMP IVP ONE (23:30)
[2016-12-23 23:35] LABS: BASOPHILS % (AUTO) 0 % (0-10); EOSINOPHILS # (AUTO) 0.4 10^3/uL (0.0-0.3); EOSINOPHILS % (AUTO) 3 % (0-10); LYMPHOCYTES # (AUTO) 4.7 X 10^3 (1.0-4.0); LYMPHOCYTES % (AUTO) 40 % (12-44); MEAN CORPUSCULAR HEMOGLOBIN 31 PG (25-34); MEAN CORPUSCULAR HGB CONC 32 G/DL (32-36); MEAN CORPUSCULAR VOLUME 97 FL (80-99); MEAN PLATELET VOLUME 10.1 FL (7.4-10.4); MONOCYTES % (AUTO) 8 % (0-12); NEUTROPHILS # (AUTO) 5.7 X 10^3 (1.8-7.8); NEUTROPHILS % (AUTO) 48 % (42-75); PLATELET COUNT 271 10^3/uL (130-400); RED BLOOD COUNT 4.47 10^6/uL (4.35-5.85); RED CELL DISTRIBUTION WIDTH 13.9 % (10.0-14.5); WHITE BLOOD COUNT 11.8 10^3/uL (4.3-11.0)
--- NOTE | 2016-12-23 23:42 | ED Abdominal Pain ---
General Chief Complaint: Abdominal/GI Problems Stated Complaint: RT SIDED ABDOMINAL PAIN Nursing Triage Note: PT BROUGHT TO ROOM BY PERSONAL WHEELCHAIR. PT IS NOT AMBULATORY. PT STATES THAT SINCE LAST THURSDAY WHEN HER URINARY CATH WAS PLACED SHE HAS BEEN HAVING LOWER RIGHT ABD PAIN AND KIDNEY PAIN. PT STATES SHE TOOK A PERCOCET AT 1900. Sepsis Screen: No Definite Risk Source of Information: Patient, Caregiver Exam Limitations: No Limitations (LO WELLS) History of Present Illness Time Seen By Provider: 22:45 Initial Comments Katarina Reno is a 56 year old woman presenting to the ED with right flank pain. She started having abdominal pain on the "left side of the bladder" on Thursday. She saw Dr. Bustamante this afternoon and says he was concerned about a kidney stone. She states she is scheduled for a cystoscopy tomorrow, and thinks probably a CT scan since they were not able to do one today. After she left his office, she started having pain on her right lower back and side and the abdominal pain decreased. The right-sided pain was partially relieved with a Percocet at 1845, but the pain has been increasing again. It is slightly relieved by leaning to the left and she has not noticed anything else making the pain better or worse. She has had some chills the last few days and her tree care foreman noted that her urine has been dark and possibly bloody when she empties her catheter bags in the mornings, but gets contract loader throughout the day. Her blood sugars have been high the last few days. Fasting glucose this morning was 161, usually in the 80s and 90s. She denies nausea, vomiting, diarrhea, chest pain, or shortness of breath. She has had constipation most of the time for the last year that she associates with her Percocet. (LO WELLS) Allergies and Home Medications Allergies Coded Allergies: Sulfa (Sulfonamide Antibiotics) (Unverified Allergy, Mild, 07/29/08) Iodinated Contrast Media - Oral and (Verified Allergy, Unknown, 07/30/08) latex (Verified Allergy, Unknown, 07/30/08) povidone-iodine (Unverified Allergy, Unknown, 08/28/13) soap (Unverified Allergy, Unknown, 08/28/13) Uncoded Allergies: CONTRAST DYE (Allergy, Mild, 07/29/08) EES (Allergy, Mild, 07/29/08) Home Medications Alprazolam 0.5 Mg Tablet, 0.5 MG PO TID PRN for ANXIETY, (Reported) Amoxicillin/Potassium Clav 1 Each Tablet, #30 (Reported) Cephalexin 500 Mg Capsule, 500 MG PO QID, #28 Prescribed by: ALYSIA BIRCH on 12/24/16 0212 Cranberry Conc/Ascorbic Acid 1 Each Capsule, 1 CAP PO DAILY, (Reported) Diphenoxylate HCl/Atropine 1 Each Tablet, #60 (Reported) Fluticasone Propionate 16 Gm [place].susp, 1 SPRAY NS DAILY, (Reported) L.acidoph & Paracasei,B.lactis 1 Each Capsule, 1 CAP PO DAILY, (Reported) Lactulose 20 Gm/30 Ml Solution, 30 GM PO QID, #8 Prescribed by: SHORTY HUERTA on 05/20/16 1107 Metformin Hcl 850 Mg Tablet, 850 MG PO TIDAC, (Reported) Multivitamins 1 Tab Tablet, 1 TAB PO DAILY, (Reported) Ondansetron 4 Mg Tab.rapdis, 4 MG PO Q6H PRN for NAUSEA/VOMITING, #20 Ref 0 Prescribed by: SHIRLEY KIRKPATRICK on 09/21/16 2125 Oxycodone HCl 10 Mg Tablet, 10 MG PO Q6H PRN for SEVERE PAIN, (Reported) Polyethylene Glycol 3350 119 Gm Powder, 119 GM PO TID, #8 Prescribed by: SHORTY HUERTA on 05/20/16 1107 Review of Systems Constitutional: chills EENTM: No Symptoms Reported Respiratory: No Symptoms Reported, Denies Cough, Denies Shortness of Air Cardiovascular: No Symptoms Reported, Denies Chest Pain Gastrointestinal: See HPI, Abdominal Pain (previously lower abdominal pain left of midline, now right low back and side pain), Constipated (most of the time for the last year), Denies Diarrhea, Denies Nausea, Denies Vomiting Genitourinary: See HPI, Flank Pain (right side), Hematuria, Other (dark urine in the mornings) Musculoskeletal: no symptoms reported Skin: no symptoms reported Psychiatric/Neurological: No Symptoms Reported Endocrine: No Symptoms Reported Hematologic/Lymphatic: No Symptoms Reported (LO WELLS) Past Lppenku-Zypqgl-Bquxju Hx Patient Social History Alcohol Use: Denies Use Number of Drinks Today: HH Alcohol Beverage of Choice: Wine Recreational Drug Use: No Smoking Status: Current Everyday Smoker Type Used: Cigarettes 2nd Hand Smoke Exposure: Yes Recent Foreign Travel: No Contact w/Someone Who Travel: No Recent Infectious Disease Expo: No Recent Hopitalizations: No Physical Abuse: No Sexual Abuse: No (LO WELLS) Immunizations Up To Date Tetanus Booster (TDap): Unknown Date of Pneumonia Vaccine: Feb 28, 2011 Date of Influenza Vaccine: Mar 02, 2016 (LO WELLS) Seasonal Allergies Seasonal Allergies: Yes (LO WELLS) Surgeries History of Surgeries: Yes (HEEL CORD LENGTHENING, SPINAL FUSION, ischial tuberocity wound) Surgeries: Gallbladder, Orthopedic (LO WELLS) Respiratory History of Respiratory Disorde: Yes Respiratory Disorders: Pneumonia (LO WELLS) Cardiovascular History of Cardiac Disorders: No (LO WELLS) Neurological History of Neurological Disord: Yes (EMRUJTY-OCVKT-GALTH, NON-AMBULATORY) (LO WELLS) Reproductive System Hx Reproductive Disorders: Yes Female Reproductive Disorders: Ovarian Cyst CLINICAL ADMISSIONS MANAGER History: Menopausal (LO WELLS) Genitourinary History of Genitourinary Disor: Yes Genitourinary Disorders: Kidney Stones, Neurogenic Bladder, UTI-Chronic (LO WELLS) Gastrointestinal History of Gastrointestinal Di: Yes Gastrointestinal Disorders: Colitis, Chronic Diarrhea, Ulcer (LO WELLS) Musculoskeletal History of Musculoskeletal Dis: Yes (PKJRHEE-LLLFC-HGSUN AND IS NON-AMBULATORY) (LO WELLS) Endocrine History of Endocrine Disorders: Yes Endocrine Disorders: Diabetes, Non-Insulin dep (LO WELLS) HEENT History of HEENT Disorders: No Loss of Vision: Denies Hearing Impairment: Denies (LO WELLS) Cancer History of Cancer: No (LO WELLS) Psychosocial History of Psychiatric Problem: Yes Behavioral Health Disorders: Anxiety Suicide Risk Score: 0 (LO WELLS) Integumentary History of Skin or Integumenta: Yes (CHRONIC SACRAL DECUB ULCER SINCE 2008) (LO WELLS) Blood Transfusions History of Blood Disorders: No Adverse Reaction to a Blood Tr: No (LO WELLS) Family Medical History Family Medial History: FH: breast cancer 19 MOTHER, Onset:Unknown FH: pneumonia 19 FATHER, Onset:60 years & older Gout 19 FATHER, Onset:Unknown Hypertension 19 FATHER, Onset:Unknown (LO WELLS) Family Medial History: FH: breast cancer 19 MOTHER, Onset:Unknown FH: pneumonia 19 FATHER, Onset:60 years & older Gout 19 FATHER, Onset:Unknown Hypertension 19 FATHER, Onset:Unknown (ALYSIA CASTRO MD) Physical Exam Vital Signs VS - Last 72 Hours, by Label 12/23/16 22:09 Temp 98.2 Pulse 84 Resp 20 B/P (MAP) 158/94 Pulse Ox 97 O2 Delivery Room Air (ALYSIA CASTRO MD) Vital Signs Capillary Refill : Less Than 3 Seconds (LO WELLS) General Appearance: mild distress, other (sitting up in wheelchair, leaning to left side) HEENT: PERRL/EOMI Neck: non-tender, normal inspection Respiratory: lungs clear, normal breath sounds, no respiratory distress, no accessory muscle use Cardiovascular: regular rate, rhythm, no gallop, no JVD, no murmur Gastrointestinal: soft, distended (mildly distended and tympanic), No guarding , No rebound, tenderness (mild LLQ tenderness to palpation, moderate tenderness lateral RLQ to palpation, right flank tenderness to percussion) Extremities: non-tender, normal inspection (normal for patient), pedal edema ( normal for patient) Back: CVA tenderness (R) Neurologic/Psychiatric: alert, normal mood/affect, oriented x 3 Skin: normal color, warm/dry (LO WELLS) Progress/Results/Core Measures Results/Orders Lab Results Laboratory Tests Test 12/23/16 22:16 12/23/16 22:26 Range/Units Urine Color YELLOW Urine Clarity CLEAR Urine pH 6 5-9 Urine Specific [place] 1.010 L 1.016-1.022 Urine Protein NEGATIVE NEGATIVE Urine Glucose (UA) NEGATIVE NEGATIVE Urine Ketones NEGATIVE NEGATIVE Urine Nitrite POSITIVE H NEGATIVE Urine Bilirubin NEGATIVE NEGATIVE Urine Urobilinogen NORMAL NORMAL MG/DL Urine Leukocyte Esterase 3+ H NEGATIVE Urine RBC (Auto) NEGATIVE NEGATIVE Urine RBC NONE /HPF Urine WBC 5-10 H /HPF Urine Squamous Epithelial Cells 0-2 /HPF Urine Crystals NONE /LPF Urine Bacteria MODERATE H /HPF Urine Casts NONE /LPF Urine Mucus NEGATIVE /LPF Urine Culture Indicated YES White Blood Count 11.8 H 4.3-11.0 10^3/uL Red Blood Count 4.47 4.35-5.85 10^6/uL Hemoglobin 13.9 11.5-16.0 G/DL Hematocrit 43 35-52 % Mean Corpuscular Volume 97 80-99 FL Mean Corpuscular Hemoglobin 31 25-34 PG Mean Corpuscular Hemoglobin Concent 32 32-36 G/DL Red Cell Distribution Width 13.9 10.0-14.5 % Platelet Count 271 130-400 10^3/uL Mean Platelet Volume 10.1 7.4-10.4 FL Neutrophils (%) (Auto) 48 42-75 % Lymphocytes (%) (Auto) 40 12-44 % Monocytes (%) (Auto) 8 0-12 % Eosinophils (%) (Auto) 3 0-10 % Basophils (%) (Auto) 0 0-10 % Neutrophils # (Auto) 5.7 1.8-7.8 X 10^3 Lymphocytes # (Auto) 4.7 H 1.0-4.0 X 10^3 Monocytes # (Auto) 1.0 0.0-1.0 X 10^3 Eosinophils # (Auto) 0.4 H 0.0-0.3 10^3/uL Basophils # (Auto) 0.0 0.0-0.1 10^3/uL Erythrocyte Sedimentation Rate 27 0-30 MM/HR Sodium Level 140 135-145 MMOL/L Potassium Level 4.4 3.6-5.0 MMOL/L Chloride Level 103 98-107 MMOL/L Carbon Dioxide Level 25 21-32 MMOL/L Anion Gap 12 5-14 MMOL/L Blood Urea Nitrogen 11 7-18 MG/DL Creatinine 0.46 L 0.60-1.30 MG/DL Estimat Glomerular Filtration Rate > 60 BUN/Creatinine Ratio 24 Glucose Level 98 70-105 MG/DL Calcium Level 9.9 8.5-10.1 MG/DL Total Bilirubin 0.4 0.1-1.0 MG/DL Aspartate Amino Transf (AST/SGOT) 35 H 5-34 U/L Alanine Aminotransferase (ALT/SGPT) 32 0-55 U/L Alkaline Phosphatase 60 40-136 U/L C-Reactive Protein High Sensitivity 0.77 H 0.00-0.50 MG/DL Total Protein 7.7 6.4-8.2 GM/DL Albumin 4.1 3.2-4.5 GM/DL (ALYSIA CASTRO MD) My Orders Orders - ALYSIA CASTRO MD Ua Culture If Indicated (12/23/16 21:44) Urine Culture (12/23/16 22:16) Cbc With Automated Diff (12/23/16 23:28) Comprehensive Metabolic Panel (12/23/16 23:28) Hs C Reactive Protein (12/23/16 23:28) Erythrocyte Sedimentation Rate (12/23/16 23:28) Saline Lock/Iv-Start (12/23/16 23:28) Fentanyl Injection (Sublimaze Injection (12/23/16 23:30) Ct Abdomen/Pelvis Wo (12/24/16 00:03) Cephalexin Capsule (Keflex Capsule) (12/24/16 02:15) Ketorolac Injection (Toradol Injection) (12/24/16 02:30) (ALYSIA CASTRO MD) Medications Given in ED Current Medications Medications Dose Ordered Sig/Bo Route Start Time Stop Time Status Last Admin Dose Admin Cephalexin HCl 500 mg ONCE ONCE PO 12/24/16 02:15 12/24/16 02:16 DC 12/24/16 02:12 500 MG Fentanyl Citrate 50 mcg ONCE ONCE IVP 12/23/16 23:30 12/23/16 23:31 DC 12/23/16 23:34 50 MCG Ketorolac Tromethamine 15 mg ONCE ONCE IVP 12/24/16 02:30 12/24/16 02:31 DC 12/24/16 02:21 15 MG (ALYSIA CASTRO MD) Vital Signs/I&O Vital Sign - Last 12Hours 12/23/16 22:09 Temp 98.2 Pulse 84 Resp 20 B/P (MAP) 158/94 Pulse Ox 97 O2 Delivery Room Air (ALYSIA CASTRO MD) Blood Pressure Mean: 115 Progress Note : Progress Note Patient interviewed, seen, and examined personally by me along with Lo Renae, 4. I agree with MS for documentation, exam, and assessment with the following additions. This patient is well-known to me from prior encounters. She reports being seen by Dr. Bustamante who was concerned she may have a ureteral stone. CT scan and cystoscopy were planned for Thursday. Patient was developing worsening right sided/flank pain which prompted the ER visit. UA demonstrated signs of infection and she had some mild leukocytosis. CT of the abdomen was performed without contrast due to allergy. No significant findings were observed aside from constipation. Specifically, no ureteral stones were identified. Patient was additionally treated with fentanyl for pain management. Patient was additionally treated with Toradol 15 mg IV and a dose of Keflex prior to dismissal. (ALYSIA CASTRO MD) Diagnostic Imaging Diagonstic Imaging: CT Plain Films/CT/US/NM/MRI: abdomen, pelvis Comments CT abdomen and pelvis was viewed by me and [facility] report reviewed. Metallic hardware obscured the imaging to some extent. There was abundant stool within the colon. No other acute abnormalities were identified. (ALYSIA CASTRO MD) Departure Impression Impression: Primary Impression: Constipation Qualified Codes: K59.00 - Constipation, unspecified Additional Impressions: Abdominal pain Qualified Codes: R10.84 - Generalized abdominal pain Urinary tract infection Qualified Codes: N39.0 - Urinary tract infection, site not specified Disposition: 01 HOME, SELF-CARE Condition: Improved Departure-Patient Inst. Decision time for Depature: 01:45 (ALYSIA CASTRO MD) Referrals: [facility] (PCP/Family) Primary Care Physician Patient Instructions: Constipation, Adult (DC), Urinary Tract Infection, Adult (DC) Add. Discharge Instructions: Complete your antibiotics as prescribed. Follow-up on the urine culture results on Thursday. Contact Dr. Bustamante in the morning to communicate the results of your CT scan and request further instructions regarding your planned cystoscopy. Drink plenty of clear liquids. Eat a diet high in fiber with plenty of fruits, vegetables, and whole grains. Avoid excessive meats, cheeses , processed foods, and fast foods as they may worsen constipation. Discuss medications for opioid-induced constipation with your primary care team. For constipation you may use MiraLAX (polyethylene glycol) 17 g (one capful) dissolved in 8-12 ounces of water or juice 1-3 times daily as needed. Return to the emergency room if symptoms worsen. All discharge instructions reviewed with patient and/or family. Voiced understanding. Scripts Cephalexin (Keflex) 500 Mg Capsule 500 MG PO QID, #28 CAP Prov: ALYSIA CASTRO MD 12/24/16 Copy Copies To 1: SANDOVAL BUSTAMANTE MD Copies To 2: JENNIFER HILARIO MDLO LEE Dec 23, 2016 23:42 ALYSIA CASTRO MD Dec 24, 2016 02:14
[2016-12-23 23:47] LABS: ALANINE AMINOTRANSFERASE 32 U/L (0-55); ALBUMIN 4.1 GM/DL (3.2-4.5); ANION GAP 12 MMOL/L (5-14); ASPARTATE AMINO TRANSFERASE 35 U/L (5-34); BILIRUBIN,TOTAL 0.4 MG/DL (0.1-1.0); BLOOD UREA NITROGEN 11 MG/DL (7-18); BUN/CREATININE RATIO 24; CALCIUM 9.9 MG/DL (8.5-10.1); CARBON DIOXIDE 25 MMOL/L (21-32); CHLORIDE 103 MMOL/L (98-107); CREATININE SERUM 0.46 MG/DL (0.60-1.30); GFR ESTIMATED > 60; GLUCOSE 98 MG/DL (70-105); POTASSIUM 4.4 MMOL/L (3.6-5.0); SODIUM 140 MMOL/L (135-145); TOTAL PROTEIN 7.7 GM/DL (6.4-8.2); hs C REACTIVE PROTEIN 0.77 MG/DL (0.00-0.50)
[2016-12-24 00:13] LABS: ERYTHROCYTE SEDIMENTATION RATE 27 MM/HR (0-30)
[2016-12-24] MEDS ORDERED: CEPH-507 PO (02:12)
[2016-12-24] MEDS ORDERED: CEPHALEXIN 250 MG (KEFLEX) CAP PO ONE (02:15)
[2016-12-24] MEDS ORDERED: KETOROLAC 30 MG/ML VIAL IVP ONE (02:30)
[2016-12-24 02:32] VITALS: BP 148/89
--- NOTE | 2016-12-24 06:59 | Diagnostic Imaging Report ---
PROCEDURE: CT abdomen and pelvis without contrast. TECHNIQUE: Multiple contiguous axial images were obtained through the abdomen and pelvis without the use of intravenous contrast. INDICATION: Right lower quadrant pain. FINDINGS: Chowdhury catheter and its retention balloon inflated within the bladder lumen. There is no abdominal pelvic free intraperitoneal air. Large amount of colonic stool diffusely without small bowel dilatation. Gallbladder absent or contracted. The liver, spleen, adrenals and pancreas nonacute. The kidneys unobstructed. No opaque kidney stone. No focal inflammatory process, the appendix can never be discretely identified. There is no pericecal edema to suggest an inflamed or abnormal underlying appendix. There is no ascites. There is extensive scoliosis and extensive postoperative changes to the spine with metallic hardware limiting sensitivity owing to beam hardening artifact. IMPRESSION: Constipation without obstruction. Chowdhury is within the urinary bladder. No hydronephrosis. No focal inflammatory process or obstructive features. No ascites or fluid collection. No perforation. Dictated by: Dictated on workstation # [id number]
== END 2016-12-24 02:32 | disposition home or self-care (01) ==
LOC: EDUNIT# 21:40 → ER 21:42
DX: N39.0 Urinary tract infection, site not specified (principal); K59.00 Constipation, unspecified; E11.9 Type 2 diabetes mellitus without complications; F41.9 Anxiety disorder, unspecified; F17.210 Nicotine dependence, cigarettes, uncomplicated; Z98.1 Arthrodesis status; Z87.442 Personal history of urinary calculi; Z87.440 Personal history of urinary (tract) infections; Z87.09 Personal history of other diseases of the respiratory system; Z80.3 Family history of malignant neoplasm of breast; Z82.49 Family history of ischemic heart disease and other diseases of the circulatory system; Z79.84 Long term (current) use of oral hypoglycemic drugs
CPT/HCPCS: 36415; 74176; 80053; 81000; 85025; 85652; 86141; 87088; 87186; 96374; 96375

== ENCOUNTER 2017-01-12 16:13 | Emergency (ER) | payer MEDICAID ==
[~2017-01-12] VITALS: Ht 154.9 cm; Wt 59.0 kg
[~2017-01-12 16:13] MED LIST changes: +CEPH-507 PO
--- OUTSIDE RECORDS SUMMARY | 2017-01-12 16:24 | XMS REPORT ---
Author Author DWAINE BENITO 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 949434723 Problem Hypoglycemia E16.2 Active 211065397 Problem Constipation by delayed colonic transit K59.01 Active 28569689 Problem Mood disorder F39 Active 75610407 Problem Type 2 diabetes mellitus without complications E11.9 Active 326484643 Problem Neuropathy G62.9 Active 475884274 Problem Pressure ulcer of left hip, stage 2 L89.222 Active 790412084 Problem Controlled type 2 diabetes mellitus without complication, without long -term current use of insulin E11.9 Active 547376819 ALLERGIES Unknown Allergies SOCIAL HISTORY No smoking Hx information available PLAN OF CARE VITAL SIGNS MEDICATIONS Unknown Medications RESULTS No Results PROCEDURES No Known procedures IMMUNIZATIONS No Known Immunizations
--- OUTSIDE RECORDS SUMMARY | 2017-01-12 16:24 | XMS REPORT | Clinical Summary ---
Author Author [facility] Address Unknown Phone Unavailable Care Team Providers Care Contract Clerk Automobile Name Role Phone PCP Unavailable Source Comments Some departments are not documenting in the electronic medical record. If you do not see the information that you expected, contact Release of Information in the Health Information Management department at [phone] for further assistance in locating additional records.[facility] Allergies Active Allergy Reactions Severity Noted Date [...] Taken Blood Pressure 114/70 03/31/2009 6:00 AM LIFE CLAIMS EXAMINER Pulse 80 03/31/2009 6:00 AM LIFE CLAIMS EXAMINER Temperature 36.6 C (97.9 F) 03/31/2009 6:00 AM LIFE CLAIMS EXAMINER Respiratory Rate - - Oxygen Saturation 95% 03/31/2009 6:00 AM LIFE CLAIMS EXAMINER Inhaled Oxygen - - Concentration Weight 68.1 kg (150 lb 2.1 oz) 03/23/2009 3:00 PM LIFE CLAIMS EXAMINER Height 154.9 cm (5' 1") 03/23/2009 3:00 PM LIFE CLAIMS EXAMINER Body Mass Index 28.37 03/23/2009 3:00 PM LIFE CLAIMS EXAMINER Plan of Treatment Health Maintenance Due Date Last Done Comments HEPATITIS C SCREENING 1958 PHYSICAL (COMPREHENSIVE) 1965 EXAM PERTUSSIS VACCINE 1969 TETANUS VACCINE 11/03/1975 CERVICAL CANCER SCREENING 1988 BREAST CANCER SCREENING 1998 COLORECTAL CANCER 2008 SCREENING INFLUENZA VACCINE 01/11/2017 Results Not on filefrom Last 3 Months
--- OUTSIDE RECORDS SUMMARY | 2017-01-12 16:25 | XMS REPORT ---
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 Active 980970288 Problem Hypoglycemia E16.2 Active 073636709 Problem Constipation by delayed colonic transit K59.01 Active 62195148 Problem Mood disorder F39 Active 27778392 Problem Type 2 diabetes mellitus without complications E11.9 Active 240560763 Problem Neuropathy G62.9 Active 764454340 Problem Pressure ulcer of left hip, stage 2 L89.222 Active 975787237 Problem Controlled type 2 diabetes mellitus without complication, without long -term current use of insulin E11.9 Active 274914157 ALLERGIES Unknown Allergies SOCIAL HISTORY No smoking Hx information available PLAN OF CARE VITAL SIGNS MEDICATIONS Medication Instructions Dosage Frequency Start Date End Date Duration Status Xanax 0.5 MG Orally Three times a day 1 tablet 8h Active RESULTS No Results PROCEDURES No Known procedures IMMUNIZATIONS No Known Immunizations
--- OUTSIDE RECORDS SUMMARY | 2017-01-12 16:25 | XMS REPORT ---
Author Author DWAINE BENITO 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 Active 987622177 Problem Hypoglycemia E16.2 Active 735434760 Problem Constipation by delayed colonic transit K59.01 Active 52216704 Problem Mood disorder F39 Active 01145017 Problem Type 2 diabetes mellitus without complications E11.9 Active 168627659 Problem Neuropathy G62.9 Active 195102501 Problem Pressure ulcer of left hip, stage 2 L89.222 Active 024136577 Problem Controlled type 2 diabetes mellitus without complication, without long -term current use of insulin E11.9 Active 455171068 ALLERGIES No Information SOCIAL HISTORY Never Assessed PLAN OF CARE VITAL SIGNS MEDICATIONS Medication Instructions Dosage Frequency Start Date End Date Duration Status Diflucan 150 MG Orally Once a day 1 tablet 24h Jun, Jun, 03 days Active RESULTS No Results PROCEDURES No Known procedures IMMUNIZATIONS No Known Immunizations MEDICAL (GENERAL) HISTORY Type Description Date Medical History type II diabetes Medical History neuropathy Medical History Charcot [place] muscular atrophy Medical History hyperlipidemia Medical History chronic cutaneous ulcer Medical History sciatica Medical History allergic rhinitis Medical History chronic urinary tract infections-indwelling mark since 2008 Medical History kidney stones Medical History chronic pain Medical History depression Medical History MRSA Surgical History cholecystectomy (open) 1986 Surgical History spine surgery-Herringtons rods coccyx to shoulder blades 1975 Surgical History lithotripsy 2008 Surgical History stone basket 2008 Hospitalization History Chest pain, leukocytosis, and dyspnea 02/2014 Hospitalization History wound infection ([facility]) 2008 Hospitalization History wound infection ([place]) 2010 Hospitalization History at for BM impaction 2017
--- OUTSIDE RECORDS SUMMARY | 2017-01-12 16:25 | XMS REPORT ---
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 Active 946044863 Problem Hypoglycemia E16.2 Active 282498362 Problem Constipation by delayed colonic transit K59.01 Active 29275106 Problem Mood disorder F39 Active 11633218 Problem Type 2 diabetes mellitus without complications E11.9 Active 378738814 Problem Neuropathy G62.9 Active 946825274 Problem Pressure ulcer of left hip, stage 2 L89.222 Active 751495098 Problem Controlled type 2 diabetes mellitus without complication, without long -term current use of insulin E11.9 Active 196660242 ALLERGIES No Information SOCIAL HISTORY Never Assessed PLAN OF CARE VITAL SIGNS MEDICATIONS Medication Instructions Dosage Frequency Start Date End Date Duration Status Cefuroxime Axetil 250 MG Orally Twice a day 1 tablet 12h May, May, 10 day(s) Active RESULTS No Results PROCEDURES No [...] infection ([facility]) 2008 Hospitalization History wound infection ([place]) 2010 Hospitalization History at for BM impaction 2017
--- OUTSIDE RECORDS SUMMARY | 2017-01-12 16:26 | XMS REPORT ---
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 Active 347114378 Problem Hypoglycemia E16.2 Active 281192192 Problem Constipation by delayed colonic transit K59.01 Active 59606504 Problem Mood disorder F39 Active 00753542 Problem Type 2 diabetes mellitus without complications E11.9 Active 873776346 Problem Neuropathy G62.9 Active 523229840 Problem Pressure ulcer of left hip, stage 2 L89.222 Active 591873535 Problem Controlled type 2 diabetes mellitus without complication, without long -term current use of insulin E11.9 Active 618497376 ALLERGIES No Information SOCIAL HISTORY Never Assessed PLAN OF CARE VITAL SIGNS MEDICATIONS Unknown [...] infection ([facility]) 2008 Hospitalization History wound infection ([place]) 2010 Hospitalization History at for BM impaction 2016
--- OUTSIDE RECORDS SUMMARY | 2017-01-12 16:26 | XMS REPORT ---
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 Active 492385283 Problem Hypoglycemia E16.2 Active 966634722 Problem Constipation by delayed colonic transit K59.01 Active 52245143 Problem Mood disorder F39 Active 09360665 Problem Type 2 diabetes mellitus without complications E11.9 Active 229393033 Problem Neuropathy G62.9 Active 523615406 Problem Pressure ulcer of left hip, stage 2 L89.222 Active 500673656 Problem Controlled type 2 diabetes mellitus without complication, without long -term current use of insulin E11.9 Active 099596624 ALLERGIES No Information SOCIAL HISTORY Never Assessed PLAN OF CARE VITAL SIGNS MEDICATIONS Unknown Medications RESULTS Name Result Date Reference Range CULTURE, URINE 2016-05-23 Urine Culture, Routine Final report Result 1 Escherichia coli Antimicrobial Susceptibility PROCEDURES Procedure Date Ordered Result Body Site LAB NOT BILLED BY [facility] May 23, 2016 IMMUNIZATIONS No Known Immunizations MEDICAL (GENERAL) HISTORY [...] dyspnea 02/2014 Hospitalization History wound infection ([facility]) 2009 Hospitalization History wound infection ([place]) 2010 Hospitalization History at for BM impaction 2017
--- OUTSIDE RECORDS SUMMARY | 2017-01-12 16:26 | XMS REPORT ---
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 Active 649626403 Problem Hypoglycemia E16.2 Active 288488449 Problem Constipation by delayed colonic transit K59.01 Active 29176129 Problem Mood disorder F39 Active 57076922 Problem Type 2 diabetes mellitus without complications E11.9 Active 388415048 Problem Neuropathy G62.9 Active 321736258 Problem Pressure ulcer of left hip, stage 2 L89.222 Active 853012443 Problem Controlled type 2 diabetes mellitus without complication, without long -term current use of insulin E11.9 Active 906511115 ALLERGIES No Information SOCIAL HISTORY Never Assessed [...] infection ([facility]) 2008 Hospitalization History wound infection ([place]) 2010 Hospitalization History at for BM impaction 2016
--- OUTSIDE RECORDS SUMMARY | 2017-01-12 16:26 | XMS REPORT ---
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 Active 521359179 Problem Hypoglycemia E16.2 Active 226824851 Problem Constipation by delayed colonic transit K59.01 Active 09710877 Problem Mood disorder F39 Active 11219149 Problem Type 2 diabetes mellitus without complications E11.9 Active 217059567 Problem Neuropathy G62.9 Active 966639079 Problem Pressure ulcer of left hip, stage 2 L89.222 Active 631732590 Problem Controlled type 2 diabetes mellitus without complication, without long -term current use of insulin E11.9 Active 493000651 ALLERGIES Substance Reaction Event Type Date Status Latex Gloves hives Drug Allergy May, Active Voriconazole Unknown Drug Allergy May, Active Macrobid constipation Drug Allergy May, Active Erythromycin nausea Drug Allergy May, Active Ceftin Unknown Drug Allergy May, Active Bactrim DS rash Drug Allergy May, Active CT dye hives Non Drug Allergy May, Active SOCIAL HISTORY Never Assessed PLAN OF CARE VITAL SIGNS Height 61 in 2016-05-22 Temperature 98.0 degrees Fahrenheit 2016-05-22 Heart Rate 82 bpm 2016-05-22 Respiratory Rate 20 2016-05-22 Blood pressure systolic 116 mmHg 2016-05-22 Blood pressure diastolic 76 mmHg 2016-05-22 MEDICATIONS Medication Instructions Dosage Frequency Start Date End Date Duration Status Parafon Forte DSC 500 MG Orally 2 times a day 1 tablet 12h 12 Apr, 2016 Jun, 30 day(s) Active Cranberry 400 MG Orally Three times a day 1 capsule with meals 8h Active Probiotic - Active Magnesium Citrate 1.745 GM/30ML Orally Once a day as needed for constipation 30 ml Apr, Active Metformin HCl 850 TAKE ONE TABLET BY MOUTH THREE TIMES A DAY WITH MEALS 30 Active [place] 10-325 MG Orally every 6 hrs 1 tablet as needed 6h Apr, 28 days Active Fluticasone Propionate 50 MCG/ACT Nasally Once a day 1 spray in each nostril 24h Dec, 30 day(s) Active Lomotil 2.5-0.025 MG Orally Four times a day 1 tablet as needed 6h Apr, Active Zofran 8 MG Orally 3 times a day 1 tablet 8h Apr, Active Xanax 0.5 MG Orally Three times a day 1 tablet 8h Active RESULTS Name Result Date Reference Range TSH 2016-05-22 TSH 2.180 0.450-4.500 CBC 2016-05-22 WBC 9.2 3.4-10.8 RBC 4.47 3.77-5.28 Hemoglobin 13.7 11.1-15.9 Hematocrit 42.2 34.0-46.6 MCV 94 79-97 MCH 30.6 26.6-33.0 MCHC 32.5 31.5-35.7 RDW 13.7 12.3-15.4 Platelets 325 150-379 Neutrophils 52 Lymphs 38 Monocytes 8 Eos 2 Basos 0 Neutrophils (Absolute) 4.7 1.4-7.0 Lymphs (Absolute) 3.5 0.7-3.1 Monocytes(Absolute) 0.7 0.1-0.9 Eos (Absolute) 0.2 0.0-0.4 Baso (Absolute) 0.0 0.0-0.2 Immature Granulocytes 0 Immature Grans (Abs) 0.0 0.0-0.1 CMP 2016-05-22 Glucose, Serum 81 65-99 BUN 8 6-24 Creatinine, Serum 0.17 0.57-1.00 eGFR If NonAfricn Am 154 >59 eGFR If Africn Am 177 >59 BUN/Creatinine Ratio 47 9-23 Sodium, Serum 144 134-144 Potassium, Serum 4.2 3.5-5.2 Chloride, Serum 101 96-106 Carbon Dioxide, Total 23 18-29 Calcium, Serum 9.5 8.7-10.2 Protein, Total, Serum 7.0 6.0-8.5 Albumin, Serum 4.2 3.5-5.5 Globulin, Total 2.8 1.5-4.5 A/G Ratio 1.5 1.1-2.5 Bilirubin, Total 0.5 0.0-1.2 Alkaline Phosphatase, S 72 39-117 AST (SGOT) 45 0-40 ALT (SGPT) 32 0-32 LIPID PANEL 2016-05-22 Cholesterol, Total 228 100-199 Triglycerides 133 0-149 HDL Cholesterol 39 >39 VLDL Cholesterol Chris 27 5-40 LDL Cholesterol Calc 162 0-99 Comment: PROCEDURES Procedure Date Ordered Result Body Site VENIPUNCT, ROUTINE* May 22, 2016 LAB NOT BILLED BY [facility] May 22, 2016 IMMUNIZATIONS No Known Immunizations MEDICAL (GENERAL) [...] and dyspnea 02/2014 Hospitalization History wound infection ([facility]) 2008 Hospitalization History wound infection ([place]) 2010 Hospitalization History at for BM impaction 2016
--- OUTSIDE RECORDS SUMMARY | 2017-01-12 16:26 | XMS REPORT ---
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 Active 646576400 Problem Hypoglycemia E16.2 Active 175903445 Problem Constipation by delayed colonic transit K59.01 Active 99747163 Problem Mood disorder F39 Active 58523594 Problem Type 2 diabetes mellitus without complications E11.9 Active 539683401 Problem Neuropathy G62.9 Active 206899282 Problem Pressure ulcer of left hip, stage 2 L89.222 Active 735946184 Problem Controlled type 2 diabetes mellitus without complication, without long -term current use of insulin E11.9 Active 360619792 ALLERGIES Substance Reaction Event Type Date Status Latex Gloves hives Drug Allergy May, Active Voriconazole Unknown Drug Allergy May, Active Macrobid constipation Drug Allergy May, Active Erythromycin nausea Drug Allergy May, Active Ceftin Unknown Drug Allergy May, Active Bactrim DS rash Drug Allergy May, Active CT dye hives Non Drug Allergy May, Active SOCIAL HISTORY Never Assessed PLAN OF CARE Activity Details Follow Up as scheduled with PCP Reason: VITAL SIGNS Height 61 in 2016-05-21 Heart Rate 80 bpm 2016-05-21 Respiratory Rate 18 2016-05-21 Blood pressure systolic 116 mmHg 2016-05-21 Blood pressure diastolic 80 mmHg 2016-05-21 MEDICATIONS Medication Instructions Dosage Frequency Start Date End Date Duration Status Parafon Forte DSC 500 MG Orally 2 times a day 1 tablet 12h 12 Apr, 2016 Jun, 30 day(s) Active Cranberry 400 MG Orally Three times a day 1 capsule with meals 8h Active Probiotic - Active Magnesium Citrate 1.745 GM/30ML Orally Once a day as needed for constipation 30 ml 30 Apr, 2016 Active Xanax 0.5 MG Orally Three times a day 1 tablet 8h Active Lomotil 2.5-0.025 MG Orally Four times a day 1 tablet as needed 6h 16 Apr, 2016 Active Zofran 8 MG Orally 3 times a day 1 tablet 8h 17 Apr, 2016 Active Metformin HCl 850 TAKE ONE TABLET BY MOUTH THREE TIMES A DAY WITH MEALS 30 Active Fluticasone Propionate 50 MCG/ACT Nasally Once a day 1 spray in each nostril 24h 15 Dec, 2015 30 day(s) Active [place] 10-325 MG Orally every 6 hrs 1 [...] and dyspnea 02/2014 Hospitalization History wound infection ([facility]) 2008 Hospitalization History wound infection ([place]) 2010 Hospitalization History at for BM impaction 2016
--- OUTSIDE RECORDS SUMMARY | 2017-01-12 16:28 | XMS REPORT ---
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 Active 944563224 Problem Hypoglycemia E16.2 Active 580800058 Problem Constipation by delayed colonic transit K59.01 Active 36029429 Problem Mood disorder F39 Active 30325032 Problem Type 2 diabetes mellitus without complications E11.9 Active 790373122 Problem Neuropathy G62.9 Active 077464137 Problem Pressure ulcer of left hip, stage 2 L89.222 Active 496159153 Problem Controlled type 2 diabetes mellitus without complication, without long -term current use of insulin E11.9 Active 017610480 ALLERGIES No Information SOCIAL HISTORY Never Assessed [...] infection ([facility]) 2008 Hospitalization History wound infection ([place]) 2010 Hospitalization History at for BM impaction 2016
--- OUTSIDE RECORDS SUMMARY | 2017-01-12 16:28 | XMS REPORT ---
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 Active 305323333 Problem Hypoglycemia E16.2 Active 660280570 Problem Constipation by delayed colonic transit K59.01 Active 40685453 Problem Mood disorder F39 Active 21427405 Problem Type 2 diabetes mellitus without complications E11.9 Active 346055077 Problem Neuropathy G62.9 Active 664258212 Problem Pressure ulcer of left hip, stage 2 L89.222 Active 528293448 Problem Controlled type 2 diabetes mellitus without complication, without long -term current use of insulin E11.9 Active 427348030 ALLERGIES No Information SOCIAL HISTORY Never Assessed PLAN OF CARE VITAL SIGNS MEDICATIONS Medication Instructions Dosage Frequency Start Date End Date Duration Status Percocet 10-325 MG Orally every 4 hrs 1 tablet as needed 4h May, Active RESULTS No Results PROCEDURES No Known [...] and dyspnea 02/2014 Hospitalization History wound infection ([place]) 2008 Hospitalization History wound infection ([place]) 2010 Hospitalization History at for BM impaction 2017
--- OUTSIDE RECORDS SUMMARY | 2017-01-12 16:29 | XMS REPORT ---
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 Active 704768041 Problem Hypoglycemia E16.2 Active 946456908 Problem Constipation by delayed colonic transit K59.01 Active 34541285 Problem Mood disorder F39 Active 44059034 Problem Type 2 diabetes mellitus without complications E11.9 Active 157371173 Problem Neuropathy G62.9 Active 734242311 Problem Pressure ulcer of left hip, stage 2 L89.222 Active 689439044 Problem Controlled type 2 diabetes mellitus without complication, without long -term current use of insulin E11.9 Active 910884241 ALLERGIES No Information SOCIAL HISTORY Never Assessed [...] infection ([facility]) 2008 Hospitalization History wound infection ([place]) 2010 Hospitalization History at for BM impaction 2016
--- OUTSIDE RECORDS SUMMARY | 2017-01-12 16:32 | XMS REPORT ---
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 Active 575204484 Problem Hypoglycemia E16.2 Active 414890063 Problem Constipation by delayed colonic transit K59.01 Active 91687437 Problem Mood disorder F39 Active 49483017 Problem Type 2 diabetes mellitus without complications E11.9 Active 356470145 Problem Neuropathy G62.9 Active 357591808 Problem Pressure ulcer of left hip, stage 2 L89.222 Active 067614497 Problem Controlled type 2 diabetes mellitus without complication, without long -term current use of insulin E11.9 Active 806994082 ALLERGIES No Information SOCIAL HISTORY Never Assessed [...] infection ([facility]) 2008 Hospitalization History wound infection ([place]) 2010 Hospitalization History at for BM impaction 2016
--- NOTE | 2017-01-12 18:06 | ED GU-Female ---
General Chief Complaint: -Female Stated Complaint: UTI/RASH/DIARRHEA Nursing Triage Note: PT STATES SHE HAS A UTI, WAS TREATED FOR ONE ABOUT 2 WEEKS AGO HERE IN THE ER. FEELING SICK, WENT TO [facility] LAST THURSDAY AND TREATED WITH ANOTHER ABX, CEFTIN, THAT GAVE HER DIARRHEA AND A RASH. RASH RESOLVED WHEN SHE QUIT TAKING THE ABX. Nursing Sepsis Screen: No Definite Risk Source: patient, other, caregiver Exam Limitations: no limitations ([facility]ST MCKEE) History of Present Illness Time seen by provider: 17:57 Initial Comments Patient presents to ER by private conveyance with a caregiver with chief complaint she is having some burning pain darkened urine and floaters in her urinary collection bag consistent with urinary tract. She started having the symptoms 5 or 6 days ago and went to her primary care physician who did not collect a UA but put her on Ceftin. She took the Ceftin until about Thursday but immediately started having a rash that she was not tolerant of so she decided to come here instead. She says about 4 weeks ago she had a urinary tract infection and was treated with Keflex which worked really well for her but when she got done with the 10 days of Keflex she did forgot to go back on her prophylactic dose of Keflex from the urologist and feels this contributed to her urinary tract infection. She does have an indwelling catheter. She's had no nausea, fever, chills, cough, short of breath, chest pain, constipation. Her diarrhea is loose stools with no blood in it. ([facility]ST MCKEE) Allergies and Home Medications Allergies Coded Allergies: Sulfa (Sulfonamide Antibiotics) (Unverified Allergy, Mild, 07/29/08) Iodinated Contrast Media - Oral and (Verified Allergy, Unknown, 07/30/08) latex (Verified Allergy, Unknown, 07/30/08) povidone-iodine (Unverified Allergy, Unknown, 08/28/13) soap (Unverified Allergy, Unknown, 08/28/13) Uncoded Allergies: CONTRAST DYE (Allergy, Mild, 07/29/08) EES (Allergy, Mild, 07/29/08) Home Medications Alprazolam 0.5 Mg Tablet, 0.5 MG PO TID PRN for ANXIETY, (Reported) Amoxicillin/Potassium Clav 1 Each Tablet, #30 (Reported) Ampicillin Trihydrate 500 Mg Capsule, 500 MG PO TID, #45 FOR INFECTION Prescribed by: DINAH MILAN on 01/12/17 1838 Cephalexin 500 Mg Capsule, 500 MG PO QID, #28 Prescribed by: ALYSIA BIRCH on 12/24/16 0212 Cranberry Conc/Ascorbic Acid 1 Each Capsule, 1 CAP PO DAILY, (Reported) Diphenoxylate HCl/Atropine 1 Each Tablet, #60 (Reported) Fluticasone Propionate 16 Gm [place].susp, 1 SPRAY NS DAILY, (Reported) L.acidoph & Paracasei,B.lactis 1 Each Capsule, 1 CAP PO DAILY, (Reported) Lactulose 20 Gm/30 Ml Solution, 30 GM PO QID, #8 Prescribed by: SHORTY HUERTA on 05/20/16 1107 Metformin Hcl 850 Mg Tablet, 850 MG PO TIDAC, (Reported) Multivitamins 1 Tab Tablet, 1 TAB PO DAILY, (Reported) Nitrofurantoin Monohyd/M-Cryst 100 Mg Capsule, 100 MG PO BID, #30 Prescribed by: DINAH MILAN on 01/12/171837 Ondansetron 4 Mg Tab.rapdis, 4 MG PO Q6H PRN for NAUSEA/VOMITING, #20 Ref 0 Prescribed by: SHIRLEY KIRKPATRICK on 09/21/162124 Oxycodone HCl 10 Mg Tablet, 10 MG PO Q6H PRN for SEVERE PAIN, (Reported) Polyethylene Glycol 3350 119 Gm Powder, 119 GM PO TID, #8 Prescribed by: SHORTY HUERTA on 05/20/16 1107 Constitutional: No chills, No diaphoresis, No fever, No malaise EENTM: No ear pain, No eye pain Respiratory: No cough, No short of breath Cardiovascular: No chest pain, No edema Gastrointestinal: No abdominal pain, No constipation, diarrhea, No nausea, No vomiting Genitourinary: burning, denies discharge (no vaginal), dysuria : No Musculoskeletal: No back pain, No joint pain Skin: see HPI, No pruritus, rash (since resolved when she stopped taking the captain on Thursday.) Psychiatric/Neurological: Denies Headache, Denies Numbness, Denies Paresthesia ([facility]) Past Yesmcht-Mxxkpv-Renojd Hx Patient Social History Alcohol Use: Occasionally Uses Number of Drinks Today: HH Alcohol Beverage of Choice: Wine Recreational Drug Use: No Smoking Status: Current Everyday Smoker Type Used: Cigarettes 2nd Hand Smoke Exposure: Yes Recent Foreign Travel: No Contact w/Someone Who Travel: No Recent Infectious Disease Expo: No Recent Hopitalizations: No (BEST MCKEE) Immunizations Up To Date Tetanus Booster (TDap): Unknown Date of Pneumonia Vaccine: Feb 28, 2011 Date of Influenza Vaccine: Mar 02, 2016 (BEST MCKEE) Seasonal Allergies Seasonal Allergies: Yes ([facility]ST MCKEE) Surgeries History of Surgeries: Yes (HEEL CORD LENGTHENING, SPINAL FUSION, ischial tuberocity wound) Surgeries: Gallbladder, Orthopedic ([facility] M[facility]EE) Respiratory History of Respiratory Disorde: Yes Respiratory Disorders: Pneumonia ([facility]) Cardiovascular History of Cardiac Disorders: No ([facility]) Neurological History of Neurological Disord: Yes ([id number], NON-AMBULATORY) (BEST MCKEE) Reproductive System Hx Reproductive Disorders: Yes Female Reproductive Disorders: Ovarian Cyst MAXILLOFACIAL PROSTHETICS DENTIST History: Menopausal ([facility]ST MCKEE) Genitourinary History of Genitourinary Disor: Yes Genitourinary Disorders: Kidney Stones, Neurogenic Bladder, UTI-Chronic ([facility] M[facility]) Gastrointestinal History of Gastrointestinal Di: Yes Gastrointestinal Disorders: Colitis, Chronic Diarrhea, Ulcer ([facility]ST MCKEE) Musculoskeletal History of Musculoskeletal Dis: Yes ([id number] AND IS NON-AMBULATORY) (BEST MCKEE) Endocrine History of Endocrine Disorders: Yes Endocrine Disorders: Diabetes, Non-Insulin dep ([facility]) HEENT History of HEENT Disorders: No Loss of Vision: Denies Hearing Impairment: Denies (BEST MCKEE) Cancer History of Cancer: No (BEST MCKEE) Psychosocial History of Psychiatric Problem: Yes Behavioral Health Disorders: Anxiety ([facility]ST MCKEE) Integumentary History of Skin or Integumenta: Yes (CHRONIC SACRAL DECUB ULCER SINCE 2008) (BEST MCKEE) Blood Transfusions History of Blood Disorders: No Adverse Reaction to a Blood Tr: No ([facility]ST MCKEE) Family Medical History Family Medial History: FH: breast cancer 19 MOTHER, Onset:Unknown FH: pneumonia 19 FATHER, Onset:60 years & older Gout 19 FATHER, Onset:Unknown Hypertension 19 FATHER, Onset:Unknown (BEST MCKEE) Family Medial History: FH: breast cancer 19 MOTHER, Onset:Unknown FH: pneumonia 19 FATHER, Onset:60 years & older Gout 19 FATHER, Onset:Unknown Hypertension 19 FATHER, Onset:Unknown (WERODINAH Anjali GUILLAUME) Physical Exam Vital Signs Vital Sign - Last 12Hours 01/12/17 17:45 Temp 96.9 Pulse 75 Resp 20 B/P (MAP) 123/71 O2 Delivery Room Air (WERODINAH Anjali DO) Vital Signs Capillary Refill : Less Than 3 Seconds (BEST MCKEE) General Appearance: WD/WN, no apparent distress HEENT: PERRL/EOMI, pharynx normal Neck: non-tender, normal inspection Cardiovascular: normal peripheral pulses, no edema Respiratory: no respiratory distress, no accessory muscle use Gastrointestinal: normal bowel sounds, non tender, soft Back: normal inspection, no CVA tenderness Extremities: no pedal edema, normal capillary refill Neurologic/Psychiatric: alert, normal mood/affect, oriented x 3 Skin: normal color, warm/dry, No rash (BEST MCKEE) Progress/Results/Core Measures Results/Orders Lab Results Laboratory Tests Test 01/12/17 18:05 Range/Units Urine Color YELLOW Urine Clarity SLIGHTLY CLOUDY Urine pH 7 5-9 Urine Specific [place] 1.005 L 1.016-1.022 Urine Protein NEGATIVE NEGATIVE Urine Glucose (UA) NEGATIVE NEGATIVE Urine Ketones NEGATIVE NEGATIVE Urine Nitrite POSITIVE H NEGATIVE Urine Bilirubin NEGATIVE NEGATIVE Urine Urobilinogen NORMAL NORMAL MG/DL Urine Leukocyte Esterase 3+ H NEGATIVE Urine RBC (Auto) 2+ H NEGATIVE Urine RBC 0-2 /HPF Urine WBC 10-25 H /HPF Urine Squamous Epithelial Cells 10-25 H /HPF Urine Crystals NONE /LPF Urine Bacteria LARGE H /HPF Urine Casts NONE /LPF Urine Mucus NEGATIVE /LPF Urine Culture Indicated YES (WERODINAH Anjali GUILLAUME) Vital Signs/I&O Vital Sign - Last 12Hours 01/12/17 17:45 Temp 96.9 Pulse 75 Resp 20 B/P (MAP) 123/71 O2 Delivery Room Air (WERODINAH K DO) Blood Pressure Mean: 88 Progress Note : Time: 18:06 Progress Note We will obtain a urinalysis and pass over her care to Dr. Milan. (BEST MCKEE) Progress Note : Progress Note 180--ASSUMED CARE FROM DR. MCKEE, PENDING REVIEWED URINE C&S FROM 12/28/16--GREW OUT E.COLI + LACTOBACILLUS--WILL TREAT ACCORDING TO SENSITIVITY (DINAH MILAN DO) Departure Impression Impression: Primary Impression: Urinary tract infection Additional Impression: Chronic indwelling Chowdhury catheter Disposition: HOME, SELF-CARE Condition: Stable Departure-Patient Inst. Referrals: [facility] (PCP/Family) Primary Care Physician Patient Instructions: How to Prevent Catheter Associated Urinary Tract Infections, Urinary Tract Infection, Adult (DC) Add. Discharge Instructions: LOTS OF CLEAR LIQUIDS INCREASE YOUR PROBIOTIC TO 2 PILLS 4 TIMES A DAY WHILE ON ANTIBIOTICS FOLLOW UP WITH [facility] OR YOUR UROLOGIST IN 7-10 DAYS FOR RECHECK All discharge instructions reviewed with patient and/or family. Voiced understanding. Scripts Ampicillin Trihydrate (Ampicillin Trihydrate) 500 Mg Capsule 500 MG PO TID, #45 CAP FOR INFECTION Prov: DINAH MILAN DO 01/12/17 Nitrofurantoin Monohyd/M-Cryst (Macrobid 100 mg Capsule) 100 Mg Capsule 100 MG PO BID, #30 CAP Prov: DINAH MILAN DO 01/12/17 [facility]EE Jan 12, 2017 18:06 DINAH MILAN DO Jan 12, 2017 18:20
[2017-01-12 18:14] LABS: BILIRUBIN,URINE NEGATIVE (NEGATIVE); KETONES,URINE NEGATIVE (NEGATIVE); LEUKOCYTE ESTERASE ,URINE 3+ (NEGATIVE); NITRITE,URINE POSITIVE (NEGATIVE); PH,URINE 7 (5-9); PROTEIN,URINE NEGATIVE (NEGATIVE); UROBILINOGEN,URINE NORMAL (NORMAL)
[2017-01-12] MEDS ORDERED: AMPI500C9 PO (18:38)
[2017-01-12] MEDS ORDERED: NITR-65 PO (18:38)
[2017-01-12 18:53] VITALS: BP 123/71
== END 2017-01-12 18:53 | disposition home or self-care (01) ==
LOC: EDUNIT# 16:13 → ER 16:14
DX: N39.0 Urinary tract infection, site not specified (principal); E11.9 Type 2 diabetes mellitus without complications; F41.9 Anxiety disorder, unspecified; F17.210 Nicotine dependence, cigarettes, uncomplicated; Z79.84 Long term (current) use of oral hypoglycemic drugs; Z80.3 Family history of malignant neoplasm of breast; Z98.1 Arthrodesis status; Z87.01 Personal history of pneumonia (recurrent); Z87.448 Personal history of other diseases of urinary system; Z87.19 Personal history of other diseases of the digestive system; Z96.0 Presence of urogenital implants
CPT/HCPCS: 81000; 87077; 87088; 99282

== ENCOUNTER → 2017-04-16 | Outpatient (CLI) | payer MEDICAID ==
[~2017-04-16] MED LIST changes: +ACHD5005 PO; +AMPI500C9 PO; -HYDR-3812 PO; +METF500T4 PO; +NITR-65 PO; +OXYC-465 PO
--- NOTE | 2017-04-16 16:01 | Diagnostic Imaging Report ---
PROCEDURE: CT abdomen and pelvis without contrast. TECHNIQUE: Multiple contiguous axial images were obtained through the abdomen and pelvis without the use of intravenous contrast. INDICATION: Abdominal distention and pain. The previous CT abdomen/pelvis exam of 12/24/2016 noted constipation without obstruction. FINDINGS: On this study, there still appears to be a fair amount of fecal material throughout the colon. This includes several dense collections of fecal material in the sigmoid colon. There is no sign of an obstructive mass, however. There is also somewhat greater distention of the small bowel by gas than noted on the prior exam. There is no evidence for a bowel obstruction, however. The appendix was not well visualized, but there are no indirect signs of acute appendicitis. As noted on the prior exam, there is a Chowdhury catheter within the bladder and the bladder is decompressed. The uterus is not well visualized and may be surgically absent. The liver, spleen, pancreas, adrenals, kidneys, aorta, and inferior vena cava show no sign of an acute abnormality. The small low-density lesion associated with the left adrenal gland seen on the prior study is again evident. The stomach is not well distended and consequently difficult to assess. The lung bases are generally clear. As noted on the prior exam, there is pronounced dextroscoliosis of the thoracolumbar spine with orthopedic fixation rods extending from the mid thoracic region to the lower lumbar spine. These finding seem similar to the prior exam. There is no obvious breast mass. The images through the pelvis do show that there is thickening of the skin of the right buttock. There is no decubitus ulcer formation identified, however. IMPRESSION: 1. As noted on the prior exam, there is a fair amount of fecal material throughout the colon. There is no sign of an obstructive mass. 2. There is no acute abnormality of the abdomen or pelvis identified. 3. The pronounced dextroscoliosis of the thoracolumbar spine and the orthopedic hardware seen previously are again evident and do not seem to have changed significantly. Dictated by: Dictated on workstation # [id number]
== END ==
LOC: RAD 13:39
PROVIDERS: ATTEND Nurse Practitioner Community Health
DX: K56.699 Other intestinal obstruction unspecified as to partial versus complete obstruction (principal); M41.85 Other forms of scoliosis, thoracolumbar region; Z96.7 Presence of other bone and tendon implants
CPT/HCPCS: 74176

== ENCOUNTER 2017-04-17 17:55 | Inpatient (IN) | payer MEDICAID ==
[~2017-04-17] VITALS: Ht 154.9 cm; Wt 56.7 kg
[~2017-04-17 17:55] MED LIST changes: -METF500T4 PO; -OXYC-465 PO
[2017-04-17] MEDS ORDERED: NS IV 1000 ML 1,000 ML IV ONE (18:10)
[2017-04-17 18:37] LABS: BASOPHILS % (AUTO) 0 % (0-10); EOSINOPHILS # (AUTO) 0.2 10^3/uL (0.0-0.3); EOSINOPHILS % (AUTO) 2 % (0-10); HEMATOCRIT 40 % (35-52); HEMOGLOBIN 14.2 G/DL (11.5-16.0); LYMPHOCYTES % (AUTO) 36 % (12-44); MEAN CORPUSCULAR HEMOGLOBIN 31 PG (25-34); MEAN CORPUSCULAR HGB CONC 35 G/DL (32-36); MEAN CORPUSCULAR VOLUME 87 FL (80-99); MEAN PLATELET VOLUME 9.6 FL (7.4-10.4); MONOCYTES # (AUTO) 0.9 X 10^3 (0.0-1.0); MONOCYTES % (AUTO) 8 % (0-12); NEUTROPHILS # (AUTO) 6.1 X 10^3 (1.8-7.8); NEUTROPHILS % (AUTO) 54 % (42-75); PLATELET COUNT 260 10^3/uL (130-400); RED BLOOD COUNT 4.61 10^6/uL (4.35-5.85); RED CELL DISTRIBUTION WIDTH 13.7 % (10.0-14.5); WHITE BLOOD COUNT 11.3 10^3/uL (4.3-11.0)
[2017-04-17 19:01] LABS: ALANINE AMINOTRANSFERASE 40 U/L (0-55); ALBUMIN 4.2 GM/DL (3.2-4.5); ALKALINE PHOSPHATASE 78 U/L (40-136); BILIRUBIN,TOTAL 0.4 MG/DL (0.1-1.0); BUN/CREATININE RATIO 17; CALCIUM 9.7 MG/DL (8.5-10.1); CARBON DIOXIDE 24 MMOL/L (21-32); CHLORIDE 101 MMOL/L (98-107); CREATININE SERUM 0.42 MG/DL (0.60-1.30); GFR ESTIMATED > 60; GLUCOSE 93 MG/DL (70-105); MAGNESIUM 2.1 MG/DL (1.8-2.4); POTASSIUM 3.9 MMOL/L (3.6-5.0); SODIUM 141 MMOL/L (135-145)
--- NOTE | 2017-04-17 19:19 | Diagnostic Imaging Report ---
EXAM: ABDOMEN/KUB 1VIEW INDICATION: Abdominal pain. No bowel movement. COMPARISON: CT abdomen and pelvis without contrast 04/16/2017. FINDINGS: Nonspecific bowel gas pattern. Moderate stool burden in the visualized colon, similar to yesterday's CT. Postoperative changes in the visualized spine. No acute osseous findings. IMPRESSION: Nonspecific bowel gas pattern. Stool burden appears similar to yesterday's CT. Dictated by: Dictated on workstation # [id number]
--- NOTE | 2017-04-17 19:32 | ED GI ---
General Chief Complaint: Abdominal/GI Problems Stated Complaint: NO BOWEL MOVEMENT Nursing Triage Note: pt states has no bowel movement x 16 days; states that she had "pastey" diarrhea for her last bowel movement on that Thursday. Currently taking Miralax, senokot, tried soap suds and one fleets enema without only having mucus results. pt states usually goes at least every other day. pt was treated with diflucan for a uti at the beginning of the week. Recently stopped 850mg of metformin per [place], [facility] but restarted d/t too high bs. Sepsis Screen: No Definite Risk History of Present Illness Time Seen By Provider: 18:30 Initial Comments 56-year-old female Patient reports no stool for 16 days. She had an outpatient CT scan of her abdomen and pelvis yesterday which showed retained stool with no signs of bowel obstruction. She reports that with digital removal they have had small pieces of hard formed stool. She tried a fleets enema yesterday with mucous return. She denies abdominal pain. She does report having an appetite and has increased her water intake. She is wheelchair-bound and has assistance with her care at home. Timing/Duration: Other (16 days) Severity/Quality: Mild Location: Generalized Abdomen Radiation: No Radiation Activities at Onset: None Associated Symptoms: Denies Symptoms Allergies and Home Medications Allergies Coded Allergies: Sulfa (Sulfonamide Antibiotics) (Unverified Allergy, Mild, 07/29/08) Iodinated Contrast- Oral and IV Dye (Verified Allergy, Unknown, 07/30/08) latex (Verified Allergy, Unknown, 07/30/08) povidone-iodine (Unverified Allergy, Unknown, 08/28/13) soap (Unverified Allergy, Unknown, 08/28/13) Uncoded Allergies: CONTRAST DYE (Allergy, Mild, 07/29/08) EES (Allergy, Mild, 07/29/08) Home Medications Alprazolam 0.5 Mg Tablet, 0.5 MG PO TID PRN for ANXIETY, (Reported) Amoxicillin/Potassium Clav 1 Each Tablet, #30 (Reported) Ampicillin Trihydrate 500 Mg Capsule, 500 MG PO TID, #45 FOR INFECTION Prescribed by: DINAH CONTEH on 01/12/17 8368 Cephalexin 500 Mg Capsule, 500 MG PO QID, #28 Prescribed by: ALYSIA BIRCH on 12/24/16 0212 Cranberry Conc/Ascorbic Acid 1 Each Capsule, 1 CAP PO DAILY, (Reported) Diphenoxylate HCl/Atropine 1 Each Tablet, #60 (Reported) Fluticasone Propionate 16 Gm [place].susp, 1 SPRAY NS DAILY, (Reported) L.acidoph & Paracasei,B.lactis 1 Each Capsule, 1 CAP PO DAILY, (Reported) Lactulose 20 Gm/30 Ml Solution, 30 GM PO QID, #8 Prescribed by: SHORTY HUERTA on 05/20/16 1107 Metformin Hcl 850 Mg Tablet, 850 MG PO TIDAC, (Reported) Multivitamins 1 Tab Tablet, 1 TAB PO DAILY, (Reported) Nitrofurantoin Monohyd/M-Cryst 100 Mg Capsule, 100 MG PO BID, #30 Prescribed by: DINAH CONTEH on 01/12/17 1838 Ondansetron 4 Mg Tab.rapdis, 4 MG PO Q6H PRN for NAUSEA/VOMITING, #20 Ref 0 Prescribed by: SHIRLEY KIRKPATRICK on 09/21/165 Oxycodone HCl 10 Mg Tablet, 10 MG PO Q6H PRN for SEVERE PAIN, (Reported) Polyethylene Glycol 3350 119 Gm Powder, 119 GM PO TID, #8 Prescribed by: SHORTY HUERTA on 05/20/16 1107 Review of Systems Constitutional: no symptoms reported, see HPI Gastrointestinal: See HPI, Constipated All Other Systems Reviewed Negative Unless Noted: Yes Past Fdtvvhh-Mmuewk-Qybvjp Hx Patient Social History Alcohol Use: Occasionally Uses Number of Drinks Today: Alcohol Beverage of Choice: Wine Recreational Drug Use: No Smoking Status: Current Someday Smoker Type Used: Cigarettes 2nd Hand Smoke Exposure: Yes Recent Foreign Travel: No Contact w/Someone Who Travel: No Recent Infectious Disease Expo: No Recent Hopitalizations: No Immunizations Up To Date Tetanus Booster (TDap): Unknown Date of Pneumonia Vaccine: Feb 28, 2011 Date of Influenza Vaccine: Mar 02, 2016 Seasonal Allergies Seasonal Allergies: Yes Surgeries History of Surgeries: Yes (HEEL CORD LENGTHENING, SPINAL FUSION, ischial tuberocity wound) Surgeries: Gallbladder, Orthopedic Respiratory History of Respiratory Disorde: Yes Respiratory Disorders: Pneumonia Cardiovascular History of Cardiac Disorders: No Neurological History of Neurological Disord: Yes ([id number], NON-AMBULATORY) Reproductive System : No Hx Reproductive Disorders: Yes 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 Genitourinary History of Genitourinary Disor: Yes Genitourinary Disorders: Kidney Stones, Neurogenic Bladder, UTI-Chronic Gastrointestinal History of Gastrointestinal Di: Yes Gastrointestinal Disorders: Colitis, Chronic Diarrhea, Ulcer Musculoskeletal History of Musculoskeletal Dis: Yes (NACOVNE-[id number]-UUQUV AND IS NON-AMBULATORY) Endocrine History of Endocrine Disorders: Yes Endocrine Disorders: Diabetes, Non-Insulin dep HEENT History of HEENT Disorders: No Loss of Vision: Denies Hearing Impairment: Denies Cancer History of Cancer: No Psychosocial History of Psychiatric Problem: Yes Behavioral Health Disorders: Anxiety Integumentary History of Skin or Integumenta: Yes (CHRONIC SACRAL DECUB ULCER SINCE 2008) Blood Transfusions History of Blood Disorders: No Adverse Reaction to a Blood Tr: No Reviewed Nursing Assessment Reviewed/Agree w Nursing PMH: Yes Family Medical History Family Medial History: FH: breast cancer 19 MOTHER, Onset:Unknown FH: pneumonia 19 FATHER, Onset:60 years & older Gout 19 FATHER, Onset:Unknown Hypertension 19 FATHER, Onset:Unknown Physical Exam Vital Signs VS - Last 72 Hours, by Label 04/17/17 18:02 Temp 98.7 Pulse 97 Resp 18 B/P (MAP) 149/71 (97) Pulse Ox 96 O2 Delivery Room Air Capillary Refill : Less Than 3 Seconds General Appearance: WD/WN, no apparent distress HEENT: normal ENT inspection, TMs normal, pharynx normal Neck: non-tender, full range of motion, No lymphadenopathy (R), No lymphadenopathy (L) Respiratory: chest non-tender, lungs clear, normal breath sounds, no respiratory distress Cardiovascular: normal peripheral pulses, regular rate, rhythm Gastrointestinal: normal bowel sounds, non tender, No soft (firm), distended, No rebound, No tenderness Neurologic/Psychiatric: alert, normal mood/affect, oriented x 3 Skin: normal color, warm/dry Progress/Results/Core Measures Results/Orders Lab Results Laboratory Tests Test 04/17/17 18:30 Range/Units White Blood Count 11.3 H 4.3-11.0 10^3/uL Red Blood Count 4.61 4.35-5.85 10^6/uL Hemoglobin 14.2 11.5-16.0 G/DL Hematocrit 40 35-52 % Mean Corpuscular Volume 87 80-99 FL Mean Corpuscular Hemoglobin 31 25-34 PG Mean Corpuscular Hemoglobin Concent 35 32-36 G/DL Red Cell Distribution Width 13.7 10.0-14.5 % Platelet Count 260 130-400 10^3/uL Mean Platelet Volume 9.6 7.4-10.4 FL Neutrophils (%) (Auto) 54 42-75 % Lymphocytes (%) (Auto) 36 12-44 % Monocytes (%) (Auto) 8 0-12 % Eosinophils (%) (Auto) 2 0-10 % Basophils (%) (Auto) 0 0-10 % Neutrophils # (Auto) 6.1 1.8-7.8 X 10^3 Lymphocytes # (Auto) 4.0 1.0-4.0 X 10^3 Monocytes # (Auto) 0.9 0.0-1.0 X 10^3 Eosinophils # (Auto) 0.2 0.0-0.3 10^3/uL Basophils # (Auto) 0.0 0.0-0.1 10^3/uL Sodium Level 141 135-145 MMOL/L Potassium Level 3.9 3.6-5.0 MMOL/L Chloride Level 101 98-107 MMOL/L Carbon Dioxide Level 24 21-32 MMOL/L Anion Gap 16 H 5-14 MMOL/L Blood Urea Nitrogen 7 7-18 MG/DL Creatinine 0.42 L 0.60-1.30 MG/DL Estimat Glomerular Filtration Rate > 60 BUN/Creatinine Ratio 17 Glucose Level 93 70-105 MG/DL Calcium Level 9.7 8.5-10.1 MG/DL Magnesium Level 2.1 1.8-2.4 MG/DL Total Bilirubin 0.4 0.1-1.0 MG/DL Aspartate Amino Transf (AST/SGOT) 45 H 5-34 U/L Alanine Aminotransferase (ALT/SGPT) 40 0-55 U/L Alkaline Phosphatase 78 40-136 U/L C-Reactive Protein High Sensitivity 3.20 H 0.00-0.50 MG/DL Total Protein 8.0 6.4-8.2 GM/DL Albumin 4.2 3.2-4.5 GM/DL My Orders Orders - MARK ORDOÑEZ Cbc With Automated Diff (04/17/17 18:10) Comprehensive Metabolic Panel (04/17/17 18:10) Hs C Reactive Protein (04/17/17 18:10) Magnesium (04/17/17 18:10) Ua Culture If Indicated (04/17/17 18:10) Abdomen/Kub 1view (04/17/17 18:10) Saline Lock/Iv-Start (04/17/17 18:10) Ns Iv 1000 Ml (Sodium Chloride 0.9%) (04/17/17 18:10) Medications Given in ED Current Medications Medications Dose Ordered Sig/Bo Route Start Time Stop Time Status Last Admin Dose Admin Sodium Chloride 1,000 ml @ 0 mls/hr Q0M ONCE IV 04/17/17 18:10 04/17/17 18:12 DC 04/17/17 19:43 0 MLS/HR Vital Signs/I&O Vital Sign - Last 12Hours 04/17/17 18:02 Temp 98.7 Pulse 97 Resp 18 B/P (MAP) 149/71 (97) Pulse Ox 96 O2 Delivery Room Air Blood Pressure Mean: 97 Progress Note : Time: 18:30 Progress Note Initial evaluation completed, will get x-ray of the abdomen and labs 1944 labs within normal limits, spoke to Dr. Cason by phone, agreed to accept patient for observation admission. Patient agreeable with this plan of care. 2030 UA shows UTI, will start Cipro 500 mg po q 12 hours. Patient reports having diarrhea with many antibiotics but she does not believe she has trouble with Cipro. Diagnostic Imaging Diagonstic Imaging: Xray Plain Films/CT/US/NM/MRI: abdomen Comments NAME: LEW GUZMAN [facility] REC#: [id number] PT STATUS: REG ER : 1960 PHYSICIAN: MARK ORDOÑEZ ADMIT DATE: 04/17/17/ER Draft Date of Exam:04/17/17 ABDOMEN/KUB 1VIEW EXAM: ABDOMEN/KUB 1VIEW INDICATION: Abdominal pain. No bowel movement. COMPARISON: CT abdomen and pelvis without contrast 04/16/2017. FINDINGS: Nonspecific bowel gas pattern. Moderate stool burden in the visualized colon, similar to yesterday's CT. Postoperative changes in the visualized spine. No acute osseous findings. IMPRESSION: Nonspecific bowel gas pattern. Stool burden appears similar to yesterday's CT. Dictated on workstation # [id number] Dict: 04/17/171911 Trans: 04/17/171917 [facility] [id number] Interpreted by: LILIAN ZUNIGA MD Electronically signed by: Yousif Imaging: CT Plain Films/CT/US/NM/MRI: abdomen, pelvis Comments NAME: LEW GUZMAN [facility] REC#: [id number] PHYSICIAN: DWAINE BENITO CC: DWAINE BENITO; NOE DELGADO MD Page 2 of 2 RADIOLOGY REPORT VIA [place], [place] CC: DWAINE BENITO; NOE DELGADO MD Page 1 of 2 RADIOLOGY REPORT NAME: LEW GUZMAN [facility] REC#: [id number] PT STATUS: REG CLI : 1960 PHYSICIAN: DWAINE BENITO ADMIT DATE: 04/16/17/RAD Signed Date of Exam: 04/16/17 CT ABDOMEN/PELVIS WO PROCEDURE: CT abdomen and pelvis without contrast. TECHNIQUE: Multiple contiguous axial images were obtained through the abdomen and pelvis without the use of intravenous contrast. INDICATION: Abdominal distention and pain. The previous CT abdomen/pelvis exam of 12/24/2016 noted constipation without obstruction. FINDINGS: On this study, there still appears to be a fair amount of fecal material throughout the colon. This includes several dense collections of fecal material in the sigmoid colon. There is no sign of an obstructive mass, however. There is also somewhat greater distention of the small bowel by gas than noted on the prior exam. There is no evidence for a bowel obstruction, however. The appendix was not well visualized, but there are no indirect signs of acute appendicitis. As noted on the prior exam, there is a Chowdhury catheter within the bladder and the bladder is decompressed. The uterus is not well visualized and may be surgically absent. The liver, spleen, pancreas, adrenals, kidneys, aorta, and inferior vena cava show no sign of an acute abnormality. The small low-density lesion associated with the left adrenal gland seen on the prior study is again evident. The stomach is not well distended and consequently difficult to assess. The lung bases are generally clear. As noted on the prior exam, there is pronounced dextroscoliosis of the thoracolumbar spine with orthopedic fixation rods extending from the mid thoracic region to the lower lumbar spine. These finding seem similar to the prior exam. There is no obvious breast mass. The images through the pelvis do show that there is thickening of the skin of the right buttock. There is no decubitus ulcer formation identified, however. IMPRESSION: 1. As noted on the prior exam, there is a fair amount of fecal material throughout the colon. There is no sign of an obstructive mass. 2. There is no acute abnormality of the abdomen or pelvis identified. 3. The pronounced dextroscoliosis of the thoracolumbar spine and the orthopedic hardware seen previously are again evident and do not seem to have changed significantly. Dictated by: Dictated on workstation # [id number] Dict: 04/16/17 1540 Trans: 04/16/17 1718 Interpreted by: NOE DELGADO MD Electronically signed by: NOE DELGADO MD 04/16/17 1718 Reviewed: Reviewed by Me Departure Impression Impression: Primary Impression: Constipation Qualified Codes: K59.01 - Slow transit constipation Disposition: 09 ADMITTED INPATIENT Condition: Stable Admissions Decision to Admit Reason: Admit from ER (General) Decision to Admit/Date: Apr 17, 2017 Time/Decision to Admit Time: 19:45 Departure-Patient Inst. Referrals: GILBERTO PRICE DO (PCP) Primary Care Physician DWAINE BENITO (Family) Primary Care Physician Copy Copies To 1: JOVAN CASON MD, AMY ARNP Apr 17, 2017 19:32
[2017-04-17 20:21] LABS: BILIRUBIN,URINE NEGATIVE (NEGATIVE); CLARITY,URINE VERY CLOUDY; COLOR,URINE YELLOW; GLUCOSE, URINE (UA) NEGATIVE (NEGATIVE); KETONES,URINE NEGATIVE (NEGATIVE); LEUKOCYTE ESTERASE ,URINE 3+ (NEGATIVE); NITRITE,URINE POSITIVE (NEGATIVE); PH,URINE 5 (5-9); PROTEIN,URINE 1+ (NEGATIVE); UROBILINOGEN,URINE NORMAL (NORMAL)
[2017-04-17 20:28] LABS: RBC,URINE 0-2 /HPF
[2017-04-17 20:29] LABS: BACTERIA,URINE LARGE /HPF
[2017-04-17 21:06] VITALS: BP 125/60
[2017-04-17] MEDS ORDERED: ONDANSETRON 4 MG/2 ML (SDV) Z0FRAN IV PRN (21:30)
[2017-04-17] MEDS: NS IV 1000 ML 1,000 ML IV SCH (21:53)
[2017-04-17] MEDS: CIPROFLOXACIN 500 MG (CIPRO) TABLET PO SCH (21:53)
[2017-04-17 23:59] VITALS: BP 116/57
--- OUTSIDE RECORDS SUMMARY | 2017-04-18 00:38 | XMS REPORT ---
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 Active 144882670 Problem Hypoglycemia E16.2 Active 856096351 Problem Constipation by delayed colonic transit K59.01 Active 60547554 Problem Mood disorder F39 Active 45010111 Problem Type 2 diabetes mellitus without complications E11.9 Active 465752050 Problem Neuropathy G62.9 Active 289279173 Problem Pressure ulcer of left hip, stage 2 L89.222 Active 874172953 Problem Controlled type 2 diabetes mellitus without complication, without long -term current use of insulin E11.9 Active 301737162 ALLERGIES No Information SOCIAL HISTORY Never Assessed PLAN OF CARE VITAL SIGNS Height 61 in 2016-06-19 Temperature 98.5 degrees Fahrenheit 2016-06-19 Heart Rate 88 bpm 2016-06-19 Respiratory Rate 18 2016-06-19 Blood pressure systolic 104 mmHg 2016-06-19 Blood pressure diastolic 64 mmHg 2016-06-19 MEDICATIONS Unknown Medications RESULTS No Results PROCEDURES [...] and dyspnea 02/2014 Hospitalization History wound infection ([facility]) 2008 Hospitalization History wound infection ([place]) 2010 Hospitalization History at for BM impaction 2017
--- OUTSIDE RECORDS SUMMARY | 2017-04-18 00:38 | XMS REPORT | Clinical Summary ---
Author Author [facility] Organization [facility] Address Unknown Phone Unavailable Care Team Providers Care Formula Room Worker Name Role Phone PCP Unavailable Source Comments Some departments are not documenting in the electronic medical record. If you do not see the information that you expected, contact Release of Information in the Health Information Management department at [phone] for further assistance in locating additional records.[facility] Allergies Active Allergy Reactions Severity Noted [...] Taken Blood Pressure 114/70 03/31/2009 6:00 AM [employer] Pulse 80 03/31/2009 6:00 AM [employer] Temperature 36.6 C (97.9 F) 03/31/2009 6:00 AM [employer] Respiratory Rate - - Oxygen Saturation 95% 03/31/2009 6:00 AM [employer] Inhaled Oxygen - - Concentration Weight 68.1 kg (150 lb 2.1 oz) 03/23/2009 3:00 PM [employer] Height 154.9 cm (5' 1") 03/23/2009 3:00 PM [employer] Body Mass Index 28.37 03/23/2009 3:00 PM [employer] Plan of Treatment Health Maintenance Due Date Last Done Comments HEPATITIS C SCREENING 1960 PHYSICAL (COMPREHENSIVE) 1965 EXAM PERTUSSIS VACCINE 1969 TETANUS VACCINE 11/03/1975 CERVICAL CANCER SCREENING 1988 BREAST CANCER SCREENING 1998 COLORECTAL CANCER 2008 SCREENING INFLUENZA VACCINE 11/11/2016 Results Not on filefrom Last 3 Months
--- OUTSIDE RECORDS SUMMARY | 2017-04-18 00:41 | XMS REPORT ---
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 Active 761939693 Problem Hypoglycemia E16.2 Active 929747660 Problem Constipation by delayed colonic transit K59.01 Active 18058109 Problem Mood disorder F39 Active 82077838 Problem Type 2 diabetes mellitus without complications E11.9 Active 470821140 Problem Neuropathy G62.9 Active 281563623 Problem Pressure ulcer of left hip, stage 2 L89.222 Active 938316143 Problem Controlled type 2 diabetes mellitus without complication, without long -term current use of insulin E11.9 Active 850678219 ALLERGIES Substance Reaction Event Type Date Status Latex Gloves hives Drug Allergy Sep, Active Voriconazole Unknown Drug Allergy Sep, Active Macrobid constipation Drug Allergy Sep, Active Erythromycin nausea Drug Allergy Sep, Active Ceftin Unknown Drug Allergy Sep, Active Bactrim DS rash Drug Allergy Sep, Active CT dye hives Non Drug Allergy Sep, Active SOCIAL HISTORY Never Assessed PLAN OF CARE VITAL SIGNS Height 61 in 2016-09-11 Temperature 98.2 degrees Fahrenheit 2016-09-11 Heart Rate 72 bpm 2016-09-11 Respiratory Rate 20 2016-09-11 MEDICATIONS Medication Instructions Dosage Frequency Start Date End Date Duration Status Multi Complete Active Augmentin 500-125 MG Orally 3 times a day 1 tablet 8h August, Active Fluticasone Propionate 50 MCG/ACT Nasally Once a day 1 spray in each nostril 24h Dec, 30 day(s) Active Lexapro 10 mg Orally Once a day 1 tablet 24h Sep, 30 day(s) Active Cranberry 400 MG Orally Three times a day 1 capsule with meals 8h Active Biotin Active Probiotic - Active Metformin HCl 850 TAKE ONE TABLET BY MOUTH THREE TIMES A DAY WITH MEALS 30 Active Percocet 10-325 MG Orally every 4 hrs 1 tablet as needed 4h Sep, 28 days Active Xanax 0.5 MG Orally Three times a day 1 tablet 8h 28 days Active RESULTS Name Result Date Reference Range CULTURE, URINE 2016-09-11 Urine Culture, Routine Final report Result 1 Antimicrobial Susceptibility PROCEDURES Procedure Date Ordered Result Body Site LAB NOT BILLED BY [facility] September 11, 2016 IMMUNIZATIONS No Known Immunizations MEDICAL (GENERAL) [...] and dyspnea 02/2014 Hospitalization History wound infection ([facility]) 2008 Hospitalization History wound infection ([place]) 2010 Hospitalization History at for BM impaction 2017
--- OUTSIDE RECORDS SUMMARY | 2017-04-18 00:42 | XMS REPORT ---
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 Active 957385722 Problem Hypoglycemia E16.2 Active 981991638 Problem Constipation by delayed colonic transit K59.01 Active 72467705 Problem Mood disorder F39 Active 08308063 Problem Type 2 diabetes mellitus without complications E11.9 Active 069209425 Problem Neuropathy G62.9 Active 273113937 Problem Pressure ulcer of left hip, stage 2 L89.222 Active 922893837 Problem Controlled type 2 diabetes mellitus without complication, without long -term current use of insulin E11.9 Active 639548284 ALLERGIES No Information SOCIAL HISTORY Never Assessed [...] infection ([facility]) 2008 Hospitalization History wound infection ([place]) 2010 Hospitalization History at for BM impaction 2016
--- OUTSIDE RECORDS SUMMARY | 2017-04-18 00:42 | XMS REPORT ---
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 Active 164513646 Problem Hypoglycemia E16.2 Active 268384030 Problem Constipation by delayed colonic transit K59.01 Active 40347025 Problem Mood disorder F39 Active 99645630 Problem Type 2 diabetes mellitus without complications E11.9 Active 366957036 Problem Neuropathy G62.9 Active 180192961 Problem Pressure ulcer of left hip, stage 2 L89.222 Active 984550726 Problem Controlled type 2 diabetes mellitus without complication, without long -term current use of insulin E11.9 Active 058663835 ALLERGIES No Information SOCIAL HISTORY Never Assessed PLAN OF CARE VITAL SIGNS MEDICATIONS Medication Instructions Dosage Frequency Start Date End Date Duration Status Percocet 10-325 MG Orally every 4 hrs 1 tablet as needed 4h Jun, Active RESULTS No Results PROCEDURES No Known [...] infection ([facility]) 2008 Hospitalization History wound infection ([place]) 2010 Hospitalization History at for BM impaction 2017
--- OUTSIDE RECORDS SUMMARY | 2017-04-18 00:42 | XMS REPORT ---
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 Active 146827792 Problem Hypoglycemia E16.2 Active 563899609 Problem Constipation by delayed colonic transit K59.01 Active 47056394 Problem Mood disorder F39 Active 27028086 Problem Type 2 diabetes mellitus without complications E11.9 Active 178818304 Problem Neuropathy G62.9 Active 083509303 Problem Pressure ulcer of left hip, stage 2 L89.222 Active 776401750 Problem Controlled type 2 diabetes mellitus without complication, without long -term current use of insulin E11.9 Active 809277338 ALLERGIES Substance Reaction Event Type Date Status Latex Gloves hives Drug Allergy Jun, Active Voriconazole Unknown Drug Allergy Jun, Active Macrobid constipation Drug Allergy Jun, Active Erythromycin nausea Drug Allergy Jun, Active Ceftin Unknown Drug Allergy Jun, Active Bactrim DS rash Drug Allergy Jun, Active CT dye hives Non Drug Allergy Jun, Active SOCIAL HISTORY Never Assessed PLAN OF CARE VITAL SIGNS Height 61 in 2016-07-03 Temperature 98.3 degrees Fahrenheit 2016-07-03 Heart Rate 78 bpm 2016-07-03 Respiratory Rate 18 2016-07-03 Blood pressure systolic 118 mmHg 2016-07-03 Blood pressure diastolic 70 mmHg 2016-07-03 MEDICATIONS Medication Instructions Dosage Frequency Start Date End Date Duration Status Cranberry 400 MG Orally Three times a day 1 capsule with meals 8h Active Metformin HCl 850 TAKE ONE TABLET BY MOUTH THREE TIMES A DAY WITH MEALS 30 Active Probiotic - Active Fluticasone Propionate 50 MCG/ACT Nasally Once a day 1 spray in each nostril 24h Dec, 30 day(s) Active Xanax 0.5 MG Orally Three times a day 1 tablet 8h Active Percocet 10-325 MG Orally every 4 hrs 1 tablet as needed 4h Jun, Active Magnesium Citrate 1.745 GM/30ML Orally Once a day as needed for constipation 30 ml Apr, Active [place] 10-325 MG Orally every 6 hrs 1 tablet as needed 6h Apr, 28 days Active RESULTS Name Result Date Reference Range A1C (IN HOUSE) 2016-07-03 A1C IN HOUSE 5.3 4.3 - 5.6 % Previous A1c N/A Lot [id number] Exp date 04/2018 PROCEDURES Procedure Date Ordered Result Body Site GLYCATED HEMOGLOBIN TEST July 03, 2016 IMMUNIZATIONS No Known Immunizations MEDICAL (GENERAL) [...] and dyspnea 02/2014 Hospitalization History wound infection ([facility]) 2008 Hospitalization History wound infection ([place]) 2010 Hospitalization History at for BM impaction 2016
--- OUTSIDE RECORDS SUMMARY | 2017-04-18 00:43 | XMS REPORT ---
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 Active 345617498 Problem Hypoglycemia E16.2 Active 901060829 Problem Constipation by delayed colonic transit K59.01 Active 38067238 Problem Mood disorder F39 Active 58867823 Problem Type 2 diabetes mellitus without complications E11.9 Active 718679645 Problem Neuropathy G62.9 Active 862801072 Problem Pressure ulcer of left hip, stage 2 L89.222 Active 927661555 Problem Controlled type 2 diabetes mellitus without complication, without long -term current use of insulin E11.9 Active 525164130 ALLERGIES No Information SOCIAL HISTORY Never Assessed PLAN OF CARE VITAL SIGNS MEDICATIONS Medication Instructions Dosage Frequency Start Date End Date Duration Status Augmentin 500-125 MG Orally 3 times a day 1 tablet 8h August, Active RESULTS No Results PROCEDURES No Known [...] infection ([facility]) 2008 Hospitalization History wound infection ([place]) 2010 Hospitalization History at for BM impaction 2017
--- OUTSIDE RECORDS SUMMARY | 2017-04-18 00:43 | XMS REPORT ---
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 Active 440645453 Problem Hypoglycemia E16.2 Active 645780459 Problem Constipation by delayed colonic transit K59.01 Active 94570351 Problem Mood disorder F39 Active 30165129 Problem Type 2 diabetes mellitus without complications E11.9 Active 686349535 Problem Neuropathy G62.9 Active 965876179 Problem Pressure ulcer of left hip, stage 2 L89.222 Active 033903695 Problem Controlled type 2 diabetes mellitus without complication, without long -term current use of insulin E11.9 Active 780516882 ALLERGIES Substance Reaction Event Type Date Status Latex Gloves hives Drug Allergy August, Active Voriconazole Unknown Drug Allergy August, Active Macrobid constipation Drug Allergy August, Active Erythromycin nausea Drug Allergy August, Active Ceftin Unknown Drug Allergy August, Active Bactrim DS rash Drug Allergy August, Active CT dye hives Non Drug Allergy August, Active SOCIAL HISTORY Never Assessed PLAN OF CARE VITAL SIGNS Height 61 in 2016-08-28 Temperature 98.5 degrees Fahrenheit 2016-08-28 Heart Rate 76 bpm 2016-08-28 Respiratory Rate 22 2016-08-28 Blood pressure systolic 114 mmHg 2016-08-28 Blood pressure diastolic 62 mmHg 2016-08-28 MEDICATIONS Medication Instructions Dosage Frequency Start Date End Date Duration Status Xanax 0.5 MG Orally Three times a day 1 tablet 8h 28 days Active Cranberry 400 MG Orally Three times a day 1 capsule with meals 8h Active Metformin HCl 850 TAKE ONE TABLET BY MOUTH THREE TIMES A DAY WITH MEALS 30 Active Multi Complete Active Percocet 10-325 MG Orally every 4 hrs 1 tablet as needed 4h August, 28 days Active Probiotic - Active Fluticasone Propionate 50 MCG/ACT Nasally Once a day 1 spray in each nostril 24h Dec, 30 day(s) Active Biotin Active RESULTS No Results PROCEDURES No Known [...] and dyspnea 02/2014 Hospitalization History wound infection ([facility]) 2008 Hospitalization History wound infection ([place]) 2010 Hospitalization History at for BM impaction 2016
--- OUTSIDE RECORDS SUMMARY | 2017-04-18 00:43 | XMS REPORT ---
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 Active 804593154 Problem Hypoglycemia E16.2 Active 509639584 Problem Constipation by delayed colonic transit K59.01 Active 45101384 Problem Mood disorder F39 Active 22261915 Problem Type 2 diabetes mellitus without complications E11.9 Active 280902079 Problem Neuropathy G62.9 Active 444379670 Problem Pressure ulcer of left hip, stage 2 L89.222 Active 924808834 Problem Controlled type 2 diabetes mellitus without complication, without long -term current use of insulin E11.9 Active 084945804 ALLERGIES No Information SOCIAL HISTORY Never Assessed PLAN OF CARE VITAL SIGNS MEDICATIONS Medication Instructions Dosage Frequency Start Date End Date Duration Status Percocet 10-325 MG Orally every 4 hrs 1 tablet as needed 4h August, 28 days Active Probiotic - Active Metformin HCl 850 TAKE ONE TABLET BY MOUTH THREE TIMES A DAY WITH MEALS 30 Active Augmentin 500-125 MG Orally 3 times a day 1 tablet 8h August,August 10 days Active Cranberry 400 MG Orally Three times a day 1 capsule with meals 8h Active Xanax 0.5 MG Orally Three times a day 1 tablet 8h 28 days Active Multi Complete Active Biotin Active Fluticasone Propionate 50 MCG/ACT Nasally Once a day 1 spray in each nostril 24h Dec, 30 day(s) Active RESULTS No Results PROCEDURES [...] and dyspnea 02/2014 Hospitalization History wound infection ([facility]) 2008 Hospitalization History wound infection ([place]) 2010 Hospitalization History at for BM impaction 2017
--- OUTSIDE RECORDS SUMMARY | 2017-04-18 00:43 | XMS REPORT ---
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 Active 427996926 Problem Hypoglycemia E16.2 Active 299052634 Problem Constipation by delayed colonic transit K59.01 Active 15953036 Problem Mood disorder F39 Active 73104292 Problem Type 2 diabetes mellitus without complications E11.9 Active 954448489 Problem Neuropathy G62.9 Active 083979131 Problem Pressure ulcer of left hip, stage 2 L89.222 Active 995268824 Problem Controlled type 2 diabetes mellitus without complication, without long -term current use of insulin E11.9 Active 794574406 ALLERGIES Substance Reaction Event Type Date Status [...] OF CARE VITAL SIGNS Height 61 in 2016-06-05 Temperature 98.6 degrees Fahrenheit 2016-06-05 Heart Rate 84 bpm 2016-06-05 Respiratory Rate 20 2016-06-05 Blood pressure systolic 122 mmHg 2016-06-05 Blood pressure diastolic 72 mmHg 2016-06-05 MEDICATIONS Medication Instructions Dosage Frequency Start Date End Date Duration Status Probiotic - Active Parafon Forte DSC 500 MG Orally 2 times a day 1 tablet 12h 12 Apr, 2016 Jun, 30 day(s) Active Cranberry 400 MG Orally Three times a day 1 capsule with meals 8h Active [place] 10-325 MG Orally every 6 hrs 1 tablet as needed 6h Apr, 28 days Active Metformin HCl 850 TAKE ONE TABLET BY MOUTH THREE TIMES A DAY WITH MEALS 30 Active Lomotil 2.5-0.025 MG Orally Four times a day 1 tablet as needed 6h 16 Apr, 2016 Active Fluticasone Propionate 50 MCG/ACT Nasally Once a day 1 spray in each nostril 24h 15 Dec, 2015 30 day(s) Active Cefuroxime Axetil 250 MG Orally Twice a day 1 tablet 12h 13 May, 2016 May, 10 day(s) Active Zofran 8 MG Orally 3 times a day 1 tablet 8h 17 Apr, 2016 Active Xanax 0.5 MG Orally Three times a day 1 tablet 8h Active Magnesium Citrate 1.745 GM/30ML Orally Once [...] and dyspnea 02/2014 Hospitalization History wound infection ([facility]) 2008 Hospitalization History wound infection ([place]) 2010 Hospitalization History at for BM impaction 2016
--- OUTSIDE RECORDS SUMMARY | 2017-04-18 00:43 | XMS REPORT ---
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 Active 171534618 Problem Hypoglycemia E16.2 Active 871164723 Problem Constipation by delayed colonic transit K59.01 Active 36910750 Problem Mood disorder F39 Active 02954450 Problem Type 2 diabetes mellitus without complications E11.9 Active 607713493 Problem Neuropathy G62.9 Active 328012252 Problem Pressure ulcer of left hip, stage 2 L89.222 Active 473827873 Problem Controlled type 2 diabetes mellitus without complication, without long -term current use of insulin E11.9 Active 144108512 ALLERGIES No Information SOCIAL HISTORY Never Assessed PLAN OF CARE VITAL SIGNS MEDICATIONS Medication Instructions Dosage Frequency Start Date End Date Duration Status Augmentin 875-125 MG Orally every 12 hrs 1 tablet 12h August, 2 Sep, 2016 10 day(s) Active RESULTS No Results PROCEDURES [...] infection ([facility]) 2009 Hospitalization History wound infection ([place]) 2010 Hospitalization History at for BM impaction 2017
--- OUTSIDE RECORDS SUMMARY | 2017-04-18 00:45 | XMS REPORT ---
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 Active 469423509 Problem Hypoglycemia E16.2 Active 937837184 Problem Constipation by delayed colonic transit K59.01 Active 32515719 Problem Mood disorder F39 Active 96077118 Problem Type 2 diabetes mellitus without complications E11.9 Active 543984407 Problem Neuropathy G62.9 Active 618785479 Problem Pressure ulcer of left hip, stage 2 L89.222 Active 416222793 Problem Controlled type 2 diabetes mellitus without complication, without long -term current use of insulin E11.9 Active 495895323 ALLERGIES No Information SOCIAL HISTORY Never Assessed [...] infection ([facility]) 2008 Hospitalization History wound infection ([place]) 2010 Hospitalization History at for BM impaction 2016
--- OUTSIDE RECORDS SUMMARY | 2017-04-18 00:46 | XMS REPORT ---
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 Active 874095689 Problem Hypoglycemia E16.2 Active 755360251 Problem Constipation by delayed colonic transit K59.01 Active 29683891 Problem Mood disorder F39 Active 08607149 Problem Type 2 diabetes mellitus without complications E11.9 Active 228162497 Problem Neuropathy G62.9 Active 175214775 Problem Pressure ulcer of left hip, stage 2 L89.222 Active 804749896 Problem Controlled type 2 diabetes mellitus without complication, without long -term current use of insulin E11.9 Active 863618586 ALLERGIES No Information SOCIAL HISTORY Never Assessed PLAN OF CARE VITAL SIGNS MEDICATIONS Medication Instructions Dosage Frequency Start Date End Date Duration Status Percocet 10-325 MG Orally every 4 hrs 1 tablet as needed 4h Sep, 28 days Active Xanax 0.5 MG Orally Three times a day 1 tablet 8h 28 days Active RESULTS No Results PROCEDURES [...] and dyspnea 02/2014 Hospitalization History wound infection ([facility]) 2008 Hospitalization History wound infection ([place]) 2010 Hospitalization History at for BM impaction 2017
--- OUTSIDE RECORDS SUMMARY | 2017-04-18 00:52 | XMS REPORT | Continuity of Care Document ---
Author Author [facility] Address Unknown Phone Unavailable Allergies Active Description Code Type Severity Reaction Onset Reported/Identified Relationship to Patient Clinical Status Yes CONTRAST DYE CONTRAST DYE Mild N/A 07/29/2008 Yes EES EES Mild N/A 07/29/2008 Yes Sulfa (Sulfonamide Antibiotics) [id number] Drug Allergy Mild N/A 2008 Yes Iodinated Contrast Media - IV Dye [id number] Drug Allergy Unknown N/A 07/30 Yes Iodinated Contrast Media - Oral and [id number] Drug Allergy Unknown N/A Yes Iodinated Contrast- Oral and IV Dye [id number] Drug Allergy Unknown N/A Yes latex [id number] Drug Allergy Unknown N/A 07/30/[address] dye OA N/A N/A 06/03/2010 Yes erythromycin Drug Allergy N/ A N/A 06/03/[address] dye OA 06/03/2010 Yes erythromycin Drug Allergy 06/03/2010 Yes sulfa drug Drug Allergy 06/03/2010 Yes Macrobid Drug Allergy N/A N/A 07/02/2010 Yes Macrobid Drug Allergy 07/02/2010 Yes voriconazole Drug Allergy N/ A N/A 10/09/2010 Yes voriconazole Drug Allergy 10/09/2010 Yes Bactrim DS 800-160 mg tablet Drug Allergy N/A N/A 04/19/2012 Yes Bactrim DS 800-160 mg tablet Drug Allergy 04/19/2012 Yes povidone-iodine [id number] Drug Allergy Unknown N/A 08/28/2013 Yes Soap [id number] Drug Allergy Unknown N/A 08/28/2013 Medications There is no data. Problems Date Dx Coded Attending Type Code [...] 06/03/2010 780.79 FATIGUE 06/03/2010 GILBERTO PRICE DO 250.00 DIABETES MELLITUS TYPE 2 06/03/2010 GILBERTO PRICE DO 356.1 PERONEAL MUSCULAR ATROPHY 06/03/2010 GILBERTO PRICE DO 780.79 FATIGUE 06/03/2010 DWAINE BENITO APRN 250.00 [...] MUSCULAR ATROPHY 06/03/2010 780.79 FATIGUE 06/03/2010 THONG INDEPENDENT PRODUCER, DWAINE T 250.00 DIABETES MELLITUS TYPE 2 [...] T 356.1 PERONEAL MUSCULAR ATROPHY 06/03/2010 THONG INDEPENDENT PRODUCER, DWAINE T 780.79 FATIGUE 06/03/2010 THONG INDEPENDENT PRODUCER, DWAINE T 250.00 DIABETES MELLITUS TYPE 2 06/03/2010 THONG SAAVEDRAN, DWAINE T 356.1 PERONEAL MUSCULAR ATROPHY 06/03/2010 THONG INDEPENDENT PRODUCER, DWAINE T 780.79 FATIGUE 06/03/2010 THONG INDEPENDENT PRODUCER, DWAINE T 250.00 DIABETES MELLITUS TYPE 2 06/03/2010 THONG SAAVEDRAN, DWAINE T 356.1 PERONEAL MUSCULAR ATROPHY 06/03/2010 THONG SAAVEDRAN, DWAINE T 780.79 FATIGUE 06/03/2010 THONG INDEPENDENT PRODUCER, DWAINE T 250.00 DIABETES MELLITUS TYPE 2 [...] T 356.1 PERONEAL MUSCULAR ATROPHY 06/03/2010 THONG HDOGES, DWAINE T 780.79 FATIGUE 06/03/2010 YE ANDRADE MD 250.00 DIABETES MELLITUS TYPE 2 06/03/2010 YE ANDRADE MD 356.1 PERONEAL MUSCULAR ATROPHY 06/03/2010 YE ANDRADE [...] 250.00 DIABETES MELLITUS TYPE 2 06/03/2010 THONG INDEPENDENT PRODUCER, DWAINE T 356.1 PERONEAL MUSCULAR ATROPHY 06/03/2010 [...] DWAINE T 780.79 FATIGUE 06/03/2010 THONG HODGES, DWAIEN T 250.00 DIABETES MELLITUS TYPE 2 06/03/2010 THONG HODGES DWAINE T 356.1 PERONEAL MUSCULAR ATROPHY 06/03/2010 THONG HODGES, DWAINE T 780.79 FATIGUE 06/03/2010 THONG HODGES, DWAINE T 250.00 DIABETES MELLITUS TYPE 2 06/03/2010 THONG HODGES, DWAINE T 356.1 PERONEAL MUSCULAR ATROPHY 06/03/2010 THONG HODGES, DWAINE T 780.79 FATIGUE 06/03/2010 NEIDA TABLOT MD 250.00 DIABETES MELLITUS TYPE 2 06/03/2010 [...] T 250.00 DIABETES MELLITUS TYPE 2 06/03/2010 THOGN HODGES, DWAINE T 356.1 PERONEAL MUSCULAR ATROPHY 06/03/2010 THONG HODGES DWAINE T 780.79 FATIGUE 06/03/2010 THONG HODGES DWAINE T 250.00 DIABETES MELLITUS TYPE 2 06/03/2010 THONG HODGES DWAINE T 356.1 PERONEAL MUSCULAR ATROPHY 06/03/2010 THONG HODGES DWAINE T 780.79 FATIGUE 06/03/2010 THONG HODGES DWAINE T 250.00 DIABETES MELLITUS TYPE 2 06/03/2010 THONG HODGES DWAINE T 356.1 PERONEAL MUSCULAR ATROPHY 06/03/2010 THONG INDEPENDENT PRODUCER, DWAINE T 780.79 FATIGUE 06/03/2010 THONG HODGES, [...] 250.00 DIABETES MELLITUS TYPE 2 06/03/2010 THONG INDEPENDENT PRODUCER, DWAINE T 356.1 PERONEAL MUSCULAR ATROPHY 06/03/2010 [...] HODGES DWAINE T 780.79 FATIGUE 06/03/2010 THONG INDEPENDENT PRODUCER, DWAINE T 250.00 DIABETES MELLITUS TYPE 2 [...] MD 268.9 VITAMIN D DEFICIENCY 06/28/2010 THONG INDEPENDENT PRODUCER, DWAINE T 268.9 VITAMIN D DEFICIENCY 06/28/2010 THONG INDEPENDENT PRODUCER DWAINE T 268.9 VITAMIN D DEFICIENCY 06/28/2010 THONG INDEPENDENT PRODUCER DWAINE T 268.9 VITAMIN D DEFICIENCY 06/28/2010 THONG INDEPENDENT PRODUCER, DWAINE T 268.9 VITAMIN D DEFICIENCY 06/28/2010 THONG INDEPENDENT PRODUCER, DWAINE T 268.9 VITAMIN D DEFICIENCY 06/28/2010 THONG INDEPENDENT PRODUCER, DWAINE T 268.9 VITAMIN D DEFICIENCY 06/28/2010 THONG INDEPENDENT PRODUCER DWAINE T 268.9 VITAMIN D DEFICIENCY 06/28/2010 THONG INDEPENDENT PRODUCER DWAINE T 268.9 VITAMIN D DEFICIENCY 06/28/2010 RAYMOND MORRISON, YE Robles 268.9 VITAMIN D DEFICIENCY 06/28/2010 THONG INDEPENDENT PRODUCER DWAINE T 268.9 VITAMIN D DEFICIENCY 06/28/2010 THONG SAAVEDRAN DWAINE T 268.9 VITAMIN D DEFICIENCY 06/28/2010 THONG SAAVEDRAN DWAINE T 268.9 VITAMIN D DEFICIENCY 06/28/2010 THONG HODGES DWAINE T 268.9 VITAMIN D DEFICIENCY 06/28/2010 THONG HODGES DWAIEN T 268.9 VITAMIN D DEFICIENCY 06/28/2010 THONG SAAVEDRAN DWAINE T 268.9 VITAMIN D DEFICIENCY 06/28/2010 THONG SAAVEDRAN DWAINE T 268.9 VITAMIN D DEFICIENCY 06/28/2010 THONG HODGES DWAINE T 268.9 VITAMIN D DEFICIENCY 06/28/2010 THONG HODGES DWAINE T 268.9 VITAMIN D DEFICIENCY 06/28/2010 NEIDA TALBOT MD 268.9 VITAMIN D DEFICIENCY 06/28/2010 THONG HODGES [...] DWAINE T 268.9 VITAMIN D DEFICIENCY 06/28/2010 ENIDA TALBOT MD 268.9 VITAMIN D DEFICIENCY 06/28/2010 [...] T 268.9 VITAMIN D DEFICIENCY 06/28/2010 PRICE DO, GILBERTO K 268.9 VITAMIN D DEFICIENCY 06/28/2010 DWAINE BENITO APRN T 268.9 VITAMIN D DEFICIENCY 06/28/2010 DWAINE BENITO APRN T 268.9 VITAMIN D DEFICIENCY 06/28/2010 DWAINE BENITO APRN T 268.9 VITAMIN D DEFICIENCY 06/28/2010 DWAINE BENITO APRN T 268.9 VITAMIN D DEFICIENCY 06/28/2010 DWAINE BENITO APRN T 268.9 VITAMIN D DEFICIENCY 06/28/2010 PRICE DO, GILBERTO K 268.9 VITAMIN D DEFICIENCY 06/28/2010 [...] 272.4 HYPERLIPIDEMIA 07/02/2010 272.4 HYPERLIPIDEMIA 07/02/2010 THONG INDEPENDENT PRODUCER, DWAINE T 272.4 HYPERLIPIDEMIA 07/02/2010 272.4 HYPERLIPIDEMIA 07/02/2010 272.4 HYPERLIPIDEMIA 07/02/2010 272.4 HYPERLIPIDEMIA 07/02/2010 272.4 HYPERLIPIDEMIA 07/02/2010 272.4 HYPERLIPIDEMIA 07/02/2010 272.4 HYPERLIPIDEMIA 07/02/2010 272.4 HYPERLIPIDEMIA 07/02/2010 272.4 HYPERLIPIDEMIA 07/02/2010 272.4 HYPERLIPIDEMIA 07/02/2010 272.4 HYPERLIPIDEMIA 07/02/2010 272.4 HYPERLIPIDEMIA 07/02/2010 THONG INDEPENDENT PRODUCER, DWAINE T 272.4 HYPERLIPIDEMIA 07/02/2010 THONG INDEPENDENT PRODUCER, DWAINE T 272.4 HYPERLIPIDEMIA 07/02/2010 NEIDA TALBOT MD 272.4 HYPERLIPIDEMIA 07/02/2010 THONG INDEPENDENT PRODUCER, DWAINE T 272.4 HYPERLIPIDEMIA 07/02/2010 NEIDA TALBOT MD 272.4 HYPERLIPIDEMIA 07/02/2010 THONG INDEPENDENT PRODUCER, DWAINE T 272.4 HYPERLIPIDEMIA 07/02/2010 NEIDA TALBOT MD 272.4 HYPERLIPIDEMIA 07/02/2010 THONG INDEPENDENT PRODUCER, DWAINE T 272.4 HYPERLIPIDEMIA 07/02/2010 THONG INDEPENDENT PRODUCER, DWAINE T 272.4 HYPERLIPIDEMIA 07/02/2010 THONG INDEPENDENT PRODUCER, DWAINE T 272.4 HYPERLIPIDEMIA 07/02/2010 THONG INDEPENDENT PRODUCER, DWAINE T 272.4 HYPERLIPIDEMIA 07/02/2010 THONG INDEPENDENT PRODUCER, DWAINE T 272.4 HYPERLIPIDEMIA 07/02/2010 THONG INDEPENDENT PRODUCER, DWAINE T 272.4 HYPERLIPIDEMIA 07/02/2010 THONG INDEPENDENT PRODUCER, DWAINE T 272.4 HYPERLIPIDEMIA 07/02/2010 THONG INDEPENDENT PRODUCER, DWAINE T 272.4 HYPERLIPIDEMIA 07/02/2010 YE ANDRADE MD 272.4 HYPERLIPIDEMIA 07/02/2010 THONG INDEPENDENT PRODUCER, DWAINE T 272.4 HYPERLIPIDEMIA 07/02/2010 THONG INDEPENDENT PRODUCER, DWAINE T 272.4 HYPERLIPIDEMIA 07/02/2010 THONG INDEPENDENT PRODUCER, DWAINE T 272.4 HYPERLIPIDEMIA 07/02/2010 THONG INDEPENDENT PRODUCER, DWAINE T 272.4 HYPERLIPIDEMIA 07/02/2010 THONG INDEPENDENT PRODUCER, DWAINE T 272.4 HYPERLIPIDEMIA 07/02/2010 THONG INDEPENDENT PRODUCER, DWAINE T 272.4 HYPERLIPIDEMIA 07/02/2010 THONG INDEPENDENT PRODUCER, DWAINE T 272.4 HYPERLIPIDEMIA 07/02/2010 THONG INDEPENDENT PRODUCER, DWAINE T 272.4 HYPERLIPIDEMIA 07/02/2010 THONG INDEPENDENT PRODUCER, DWAINE T 272.4 HYPERLIPIDEMIA 07/02/2010 NEIDA TALBOT MD 272.4 HYPERLIPIDEMIA 07/02/2010 THONG INDEPENDENT PRODUCER, DWAINE T 272.4 HYPERLIPIDEMIA 07/02/2010 THONG INDEPENDENT PRODUCER, DWAINE T 272.4 HYPERLIPIDEMIA 07/02/2010 THONG INDEPENDENT PRODUCER, DWAINE T 272.4 HYPERLIPIDEMIA 07/02/2010 THONG INDEPENDENT PRODUCER, DWAINE T 272.4 HYPERLIPIDEMIA 07/02/2010 THONG INDEPENDENT PRODUCER, DWAINE T 272.4 HYPERLIPIDEMIA 07/02/2010 THONG INDEPENDENT PRODUCER, DWAINE T 272.4 HYPERLIPIDEMIA 07/02/2010 THONG INDEPENDENT PRODUCER, DWAINE T 272.4 HYPERLIPIDEMIA 07/02/2010 NEIDA TALBOT MD 272.4 HYPERLIPIDEMIA 07/02/2010 272.4 HYPERLIPIDEMIA 07/02/2010 THONG INDEPENDENT PRODUCER, DWAINE T 272.4 HYPERLIPIDEMIA 07/02/2010 THONG INDEPENDENT PRODUCER, DWAINE T 272.4 HYPERLIPIDEMIA 07/02/2010 THONG INDEPENDENT PRODUCER, DWAINE T 272.4 HYPERLIPIDEMIA 07/02/2010 THONG INDEPENDENT PRODUCER, DWAINE T 272.4 HYPERLIPIDEMIA 07/02/2010 THONG INDEPENDENT PRODUCER, DWAINE T 272.4 HYPERLIPIDEMIA 07/02/2010 NEIDA TALBOT MD 272.4 HYPERLIPIDEMIA 07/02/2010 THONG INDEPENDENT PRODUCER, DWAINE T 272.4 HYPERLIPIDEMIA 07/02/2010 THONG INDEPENDENT PRODUCER, DWAINE T 272.4 HYPERLIPIDEMIA 07/02/2010 PRICE DO, GILBERTO K 272.4 HYPERLIPIDEMIA 07/02/2010 THONG INDEPENDENT PRODUCER, DWAINE T 272.4 HYPERLIPIDEMIA 07/02/2010 THONG INDEPENDENT PRODUCER, DWAINE T 272.4 HYPERLIPIDEMIA 07/02/2010 THONG INDEPENDENT PRODUCER, DWAINE T 272.4 HYPERLIPIDEMIA 07/02/2010 THONG INDEPENDENT PRODUCER, DWAINE T 272.4 HYPERLIPIDEMIA 07/02/2010 THONG INDEPENDENT PRODUCER, DWAINE T 272.4 HYPERLIPIDEMIA 07/02/2010 PRICE DO, GILBERTO K 272.4 HYPERLIPIDEMIA 07/02/2010 THONG INDEPENDENT PRODUCER, DWAINE T 272.4 HYPERLIPIDEMIA 07/02/2010 THONG INDEPENDENT PRODUCER, DWAINE T 272.4 HYPERLIPIDEMIA 07/02/2010 THONG INDEPENDENT PRODUCER, DWAINE T 272.4 HYPERLIPIDEMIA 07/02/2010 THONG INDEPENDENT PRODUCER, DWAINE T 272.4 HYPERLIPIDEMIA 07/02/2010 THONG INDEPENDENT PRODUCER, DWAINE T 272.4 HYPERLIPIDEMIA 07/02/2010 THONG INDEPENDENT PRODUCER, DWAINE T 272.4 HYPERLIPIDEMIA 07/02/2010 THONG INDEPENDENT PRODUCER, DWAINE T 272.4 HYPERLIPIDEMIA 07/02/2010 THONG INDEPENDENT PRODUCER, DWAINE T 272.4 HYPERLIPIDEMIA 07/02/2010 THONG INDEPENDENT PRODUCER, DWAINE T 272.4 HYPERLIPIDEMIA 07/02/2010 DWAINE BENITO APRN 272.4 HYPERLIPIDEMIA 08/07/2010 DWANIE BENITO APRN 707.05 CHRONIC CUTANEOUS ULCER DECUBITUS [...] TALBOT MD V58.31 WOUND DRESSING 08/07/2010 THONG INDEPENDENT PRODUCER, DWAINE T 707.05 CHRONIC CUTANEOUS ULCER DECUBITUS [...] DWAINE T V58.31 WOUND DRESSING 08/07/2010 THONG SAAVEDRAN DWAINE T 707.05 CHRONIC CUTANEOUS ULCER DECUBITUS [...] HODGES DWAINE T V58.31 WOUND DRESSING 08/07/2010 YE ANDRADE MD 707.05 CHRONIC CUTANEOUS ULCER DECUBITUS BUTTOCK 08/07/2010 YE ANDRADE MD V58.31 WOUND DRESSING 08/07/2010 DWAINE BENITO [...] CHRONIC CUTANEOUS ULCER DECUBITUS BUTTOCK 08/07/2010 THONG INDEPENDENT PRODUCER, DWAINE T V58.31 WOUND DRESSING 08/07/2010 THONG [...] SAAVEDRAN, DWAINE T V58.31 WOUND DRESSING 08/07/2010 DWAINE [...] BENITO APRN T V58.31 WOUND DRESSING 08/07/2010 DWAIEN BENITO APRN T 707.05 CHRONIC CUTANEOUS ULCER [...] 707.05 CHRONIC CUTANEOUS ULCER DECUBITUS BUTTOCK 08/07/2010 ERNESTO PRICE DOA K V58.31 WOUND DRESSING 08/07/2010 DWAINE BENITO [...] SAAVEDRAN DWAINE T V58.31 WOUND DRESSING 08/07/2010 GILBERTO PRICE DO K 707.05 CHRONIC CUTANEOUS ULCER DECUBITUS BUTTOCK 08/07/2010 ERNESTO PRICE DOA K V58.31 WOUND DRESSING 08/07/2010 DWAINE BENITO [...] 300.00 anxiety 08/14/2010 338.29 CHRONIC PAIN 08/14/2010 GILBERTO PRICE DO 300.00 anxiety 08/14/2010 GILBERTO PRICE DO 338.29 CHRONIC PAIN 08/14/2010 DWAINE BENITO APRN [...] 08/14/2010 NEIDA TALBOT MD 300.00 anxiety 08/14/2010 ENIDA TALBOT MD 338.29 CHRONIC PAIN 08/14/2010 THONG [...] HODGES DWAINE T 300.00 anxiety 08/14/2010 THONG INDEPENDENT PRODUCER, DWAINE T 338.29 CHRONIC PAIN 08/14/2010 THONG INDEPENDENT PRODUCER, DWAINE T 300.00 anxiety 08/14/2010 THONG INDEPENDENT PRODUCER, DWAINE T 338.29 CHRONIC PAIN 08/14/2010 THONG INDEPENDENT PRODUCER, DWAINE T 300.00 anxiety 08/14/2010 THONG INDEPENDENT PRODUCER, DWAINE T 338.29 CHRONIC PAIN 08/14/2010 YE ANDRADE MD 300.00 anxiety 08/14/2010 YE ANDRADE MD 338.29 CHRONIC PAIN 08/14/2010 THONG INDEPENDENT PRODUCER, DWAINE T 300.00 anxiety 08/14/2010 THONG INDEPENDENT PRODUCER, DWAINE T 338.29 CHRONIC PAIN 08/14/2010 THONG INDEPENDENT PRODUCER, DWAINE T 300.00 anxiety 08/14/2010 THONG SAAVEDRAN, DWAINE T 338.29 CHRONIC PAIN 08/14/2010 THONG SAAVEDRAN, DWAINE T 300.00 anxiety 08/14/2010 THONG HODGES DWAINE T 338.29 CHRONIC PAIN 08/14/2010 THONG HODGES, DWAINE T 300.00 anxiety 08/14/2010 THONG SAAVEDRAN DWAINE T 338.29 CHRONIC PAIN 08/14/2010 THONG INDEPENDENT PRODUCER, DWAINE T 300.00 anxiety 08/14/2010 THONG INDEPENDENT PRODUCER, DWAINE T 338.29 CHRONIC PAIN 08/14/2010 THONG INDEPENDENT PRODUCER, DWAINE T 300.00 anxiety 08/14/2010 THONG INDEPENDENT PRODUCER, DWAINE T 338.29 CHRONIC PAIN 08/14/2010 THONG INDEPENDENT PRODUCER, DWAINE T 300.00 anxiety 08/14/2010 THONG INDEPENDENT PRODUCER, DWAINE T 338.29 CHRONIC PAIN 08/14/2010 THONG HODGES, DWAINE T 300.00 anxiety 08/14/2010 THONG HODGES DWAINE T 338.29 CHRONIC PAIN 08/14/2010 THONG INDEPENDENT PRODUCER, DWAINE T 300.00 anxiety 08/14/2010 THONG INDEPENDENT PRODUCER, DWAINE T 338.29 CHRONIC PAIN 08/14/2010 NEIDA TALBOT MD 300.00 anxiety 08/14/2010 NEIDA TALBOT MD 338.29 CHRONIC PAIN 08/14/2010 THONG HODGES DWAINE T 300.00 anxiety 08/14/2010 THONG HODGES, [...] HODGES DWAINE T 300.00 anxiety 08/14/2010 THONG HODGES, [...] BENITO APRN T 338.29 CHRONIC PAIN 08/14/2010 PRICE DO, GILBERTO K 300.00 anxiety 08/14/2010 PRICE DO, GILBERTO K 338.29 CHRONIC PAIN 08/14/2010 THONG HODGES DWAINE T 300.00 anxiety 08/14/2010 THONG HODGES DWAINE T 338.29 CHRONIC PAIN 08/14/2010 THONG INDEPENDENT PRODUCER, DWAINE T 300.00 anxiety 08/14/2010 THONG INDEPENDENT PRODUCER, WDAINE T 338.29 CHRONIC PAIN 08/14/2010 THONG INDEPENDENT PRODUCER, DWAINE T 300.00 anxiety 08/14/2010 THONG INDEPENDENT PRODUCER, DWAINE T 338.29 CHRONIC PAIN 08/14/2010 THONG INDEPENDENT PRODUCER, DWAINE T 300.00 anxiety 08/14/2010 THONG INDEPENDENT PRODUCER, DWAINE T 338.29 CHRONIC PAIN 08/14/2010 THONG INDEPENDENT PRODUCER, DWAINE T 300.00 anxiety 08/14/2010 THONG INDEPENDENT PRODUCER, DWAINE T 338.29 CHRONIC PAIN 08/14/2010 PRICE DO, GILBERTO K 300.00 anxiety 08/14/2010 PRICE DO, GILBERTO K 338.29 CHRONIC PAIN 08/14/2010 THONG INDEPENDENT PRODUCER, DWAINE T 300.00 anxiety 08/14/2010 THONG INDEPENDENT PRODUCER, DWAINE T 338.29 CHRONIC PAIN 08/14/2010 THONG INDEPENDENT PRODUCER, DWAINE T 300.00 anxiety 08/14/2010 THONG INDEPENDENT PRODUCER, DWAINE T 338.29 CHRONIC PAIN 08/14/2010 THONG INDEPENDENT PRODUCER, DWAINE T 300.00 anxiety 08/14/2010 THONG INDEPENDENT PRODUCER, DWAINE T 338.29 CHRONIC PAIN 08/14/2010 THONG INDEPENDENT PRODUCER, DWAINE T 300.00 anxiety 08/14/2010 THONG INDEPENDENT PRODUCER, DWAINE T 338.29 CHRONIC PAIN 08/14/2010 THONG INDEPENDENT PRODUCER, DWAINE T 300.00 anxiety 08/14/2010 THONG INDEPENDENT PRODUCER, DWAINE T 338.29 CHRONIC PAIN 08/14/2010 THONG INDEPENDENT PRODUCER, DWAINE T 300.00 anxiety 08/14/2010 THONG INDEPENDENT PRODUCER, DWAINE T 338.29 CHRONIC PAIN 08/14/2010 THONG INDEPENDENT PRODUCER, DWAINE T 300.00 anxiety 08/14/2010 THONG INDEPENDENT PRODUCER, DWAINE T 338.29 CHRONIC PAIN 08/14/2010 THONG INDEPENDENT PRODUCER, DWAINE T 300.00 anxiety 08/14/2010 THONG INDEPENDENT PRODUCER, DWAINE T 338.29 CHRONIC PAIN 08/14/2010 THONG INDEPENDENT PRODUCER, DWAINE T 300.00 anxiety 08/14/2010 THONG INDEPENDENT PRODUCER, DWAINE T 338.29 CHRONIC PAIN 08/14/2010 THONG INDEPENDENT PRODUCER, DWAINE T 300.00 anxiety 08/14/2010 THONG INDEPENDENT PRODUCER, DWAINE T 338.29 CHRONIC PAIN 09/17/2010 Ot [...] 09/21/2010 599.0 URINARY TRACT INFECTION 09/21/2010 DWAINE BENIOT APRN T 599.0 URINARY TRACT INFECTION 09/21/2010 [...] T 599.0 URINARY TRACT INFECTION 09/21/2010 THONG INDEPENDENT PRODUCER, DWAINE T 599.0 URINARY TRACT INFECTION 09/21/2010 THONG INDEPENDENT PRODUCER, DWAINE T 599.0 URINARY TRACT INFECTION 09/21/2010 THONG INDEPENDENT PRODUCER, DWAINE T 599.0 URINARY TRACT INFECTION 09/21/2010 THONG INDEPENDENT PRODUCER, DWAINE T 599.0 URINARY TRACT INFECTION 09/21/2010 RAYMOND MORRISON, YE M 599.0 URINARY TRACT INFECTION 09/21/2010 THONG INDEPENDENT PRODUCER, DWAINE T 599.0 URINARY TRACT INFECTION 09/21/2010 THONG INDEPENDENT PRODUCER, DWAINE T 599.0 URINARY TRACT INFECTION 09/21/2010 THONG INDEPENDENT PRODUCER, DWAINE T 599.0 URINARY TRACT INFECTION 09/21/2010 THONG INDEPENDENT PRODUCER, DWAINE T 599.0 URINARY TRACT INFECTION 09/21/2010 THONG INDEPENDENT PRODUCER, DWAINE T 599.0 URINARY TRACT INFECTION 09/21/2010 THONG INDEPENDENT PRODUCER, DWAINE T 599.0 URINARY TRACT INFECTION 09/21/2010 THONG INDEPENDENT PRODUCER, DWAINE T 599.0 URINARY TRACT INFECTION 09/21/2010 THONG INDEPENDENT PRODUCER, DWAINE T 599.0 URINARY TRACT INFECTION 09/21/2010 THONG INDEPENDENT PRODUCER, DWAINE T 599.0 URINARY TRACT INFECTION 09/21/2010 ANTIONE MORRISON, NEIDA 599.0 URINARY TRACT INFECTION 09/21/2010 THONG INDEPENDENT PRODUCER, DWAINE T 599.0 URINARY TRACT INFECTION 09/21/2010 THONG INDEPENDENT PRODUCER, DWAINE T 599.0 URINARY TRACT INFECTION 09/21/2010 THONG INDEPENDENT PRODUCER, DWAINE T 599.0 URINARY TRACT INFECTION 09/21/2010 THONG INDEPENDENT PRODUCER, DWAINE T 599.0 URINARY TRACT INFECTION 09/21/2010 THONG INDEPENDENT PRODUCER, DWAINE T 599.0 URINARY TRACT INFECTION 09/21/2010 THONG INDEPENDENT PRODUCER, DWAINE T 599.0 URINARY TRACT INFECTION 09/21/2010 THONG INDEPENDENT PRODUCER, DWAINE T 599.0 URINARY TRACT INFECTION 09/21/2010 NEIDA TALBOT MD 599.0 URINARY TRACT INFECTION 09/21/2010 599.0 URINARY TRACT INFECTION 09/21/2010 THONG INDEPENDENT PRODUCER, DWAINE T 599.0 URINARY TRACT INFECTION 09/21/2010 THONG INDEPENDENT PRODUCER, DWAINE T 599.0 URINARY TRACT INFECTION 09/21/2010 THONG INDEPENDENT PRODUCER, DWAINE T 599.0 URINARY TRACT INFECTION 09/21/2010 THONG INDEPENDENT PRODUCER, DWAINE T 599.0 URINARY TRACT INFECTION 09/21/2010 THONG HODGES, DWAINE T 599.0 URINARY TRACT INFECTION 09/21/2010 NEIDA TALBOT MD 599.0 URINARY TRACT INFECTION 09/21/2010 THONG INDEPENDENT PRODUCER, DWAINE T 599.0 URINARY TRACT INFECTION 09/21/2010 THONG INDEPENDENT PRODUCER, DWAINE T 599.0 URINARY TRACT INFECTION 09/21/2010 PRICE DO, GILBERTO K 599.0 URINARY TRACT INFECTION 09/21/2010 THONG INDEPENDENT PRODUCER, DWAINE T 599.0 URINARY TRACT INFECTION 09/21/2010 THONG INDEPENDENT PRODUCER, DWAINE T 599.0 URINARY TRACT INFECTION 09/21/2010 THONG INDEPENDENT PRODUCER, DWAINE T 599.0 URINARY TRACT INFECTION 09/21/2010 THONG INDEPENDENT PRODUCER, DWAINE T 599.0 URINARY TRACT INFECTION 09/21/2010 THONG INDEPENDENT PRODUCER, DWAINE T 599.0 URINARY TRACT INFECTION 09/21/2010 PRICE DO, GILBERTO K 599.0 URINARY TRACT INFECTION 09/21/2010 THONG INDEPENDENT PRODUCER, DWAINE T 599.0 URINARY TRACT INFECTION 09/21/2010 THONG INDEPENDENT PRODUCERDWAINE T 599.0 URINARY TRACT INFECTION 09/21/2010 THONG INDEPENDENT PRODUCER, DWAINE T 599.0 URINARY TRACT INFECTION 09/21/2010 THONG INDEPENDENT PRODUCER, DWAINE T 599.0 URINARY TRACT INFECTION 09/21/2010 THONG INDEPENDENT PRODUCER, DWAINE T 599.0 URINARY TRACT INFECTION 09/21/2010 THONG INDEPENDENT PRODUCER, DWAINE T 599.0 URINARY TRACT INFECTION 09/21/2010 THONG INDEPENDENT PRODUCER, DWAINE T 599.0 URINARY TRACT INFECTION 09/21/2010 THONG INDEPENDENT PRODUCER, DWAINE T 599.0 URINARY TRACT INFECTION 09/21/2010 THONG INDEPENDENT PRODUCER, DWAINE T 599.0 URINARY TRACT INFECTION 09/21/2010 THONG INDEPENDENT PRODUCER, DWAINE T 599.0 URINARY TRACT INFECTION 10/07/2010 Ot 599.0 10/07/2010 Ot V53.6 11/08/2010 DWAINE BENITO APRN T 682.9 CELLULITIS AND ABSCESS OF UNSPECIFIED SITES 11/08/2010 NEIDA TALBOT MD 682.9 CELLULITIS AND ABSCESS OF UNSPECIFIED SITES 11/08/2010 682.9 CELLULITIS AND ABSCESS OF UNSPECIFIED SITES 11/08/2010 PRCIE DO, GILBERTO K 682.9 CELLULITIS AND ABSCESS [...] CELLULITIS AND ABSCESS OF UNSPECIFIED SITES 11/08/2010 THONG INDEPENDENT PRODUCER, DWAINE T 682.9 CELLULITIS AND ABSCESS OF [...] CELLULITIS AND ABSCESS OF UNSPECIFIED SITES 11/08/2010 GILBERTO PRICE DO 682.9 CELLULITIS AND ABSCESS OF UNSPECIFIED SITES [...] DX (3 YRS AND ABOVE, IM) 01/06/2011 DAWINE BENITO APRN T V04.81 FLU DX (3 [...] (3 YRS AND ABOVE, IM) 01/06/2011 THONG INDEPENDENT PRODUCER, DWAINE T V04.81 FLU DX (3 YRS AND ABOVE, IM) 01/06/2011 THONG INDEPENDENT PRODUCER, DWAINE T V04.81 FLU DX (3 YRS AND ABOVE, IM) 01/06/2011 THONG INDEPENDENT PRODUCER, DWAINE T V04.81 FLU DX (3 YRS AND ABOVE, IM) 01/06/2011 THONG SAAVEDRAN, DWAINE T V04.81 FLU DX (3 YRS AND ABOVE, IM) 01/06/2011 NEIDA TALBOT MD V04.81 FLU DX (3 YRS AND ABOVE, IM) 01/06/2011 THONG HODGES, DWAINE T V04.81 FLU DX (3 YRS AND ABOVE, IM) 01/06/2011 THONG HODGES, DWAINE T V04.81 FLU DX (3 YRS AND ABOVE, IM) 01/06/2011 PRICE DO, GILBERTO K V04.81 FLU DX (3 YRS AND ABOVE, IM) 01/06/2011 THOGN SAAVEDRAN, DWAINE T V04.81 FLU DX (3 [...] DX (3 YRS AND ABOVE, IM) 01/06/2011 RPICE DO, GILBERTO K V04.81 FLU DX (1 YRS AND [...] MD 780.4 DIZZINESS AND GIDDINESS 03/07/2011 THONG INDEPENDENT PRODUCER, DWAINE T 780.4 DIZZINESS AND GIDDINESS 03/07/2011 THONG HODGES DWAINE T 780.4 DIZZINESS AND GIDDINESS 03/07/2011 THONG HODGES DWAINE T 780.4 DIZZINESS AND GIDDINESS 03/07/2011 THONG HODGES DWAINE T 780.4 DIZZINESS AND GIDDINESS 03/07/2011 THONG HODGES DWAINE T 780.4 DIZZINESS AND GIDDINESS 03/07/2011 THONG HODGES DWAINE T 780.4 DIZZINESS AND GIDDINESS 03/07/2011 HTONG HODGES DWAINE T 780.4 DIZZINESS AND GIDDINESS 03/07/2011 THONG HODGES DWAINE T 780.4 DIZZINESS AND GIDDINESS 03/07/2011 THONG HODGES DWAINE T 780.4 DIZZINESS AND GIDDINESS 03/07/2011 NEIDA TALBOT MD 780.4 DIZZINESS AND GIDDINESS 03/07/2011 DWAINE BENITO APRN T 780.4 DIZZINESS AND GIDDINESS 03/07/2011 DWAINE BENITO APRN T 780.4 DIZZINESS AND GIDDINESS 03/07/2011 THONG HODGES DWAINE T 780.4 DIZZINESS AND GIDDINESS 03/07/2011 THONG INDEPENDENT PRODUCER DWAINE T 780.4 DIZZINESS AND GIDDINESS 03/07/2011 THONG INDEPENDENT PRODUCERDWAINE Arredondo T 780.4 DIZZINESS AND GIDDINESS 03/07/2011 THONG INDEPENDENT PRODUCERDWAINE T 780.4 DIZZINESS AND GIDDINESS 03/07/2011 DWAINE BENITO APRN T 780.4 DIZZINESS AND GIDDINESS 03/07/2011 NEIDA TALBOT MD 780.4 DIZZINESS AND GIDDINESS 03/07/2011 780.4 DIZZINESS AND GIDDINESS 03/07/2011 THNOG INDEPENDENT PRODUCERDWAINE Arredondo T 780.4 DIZZINESS AND GIDDINESS 03/07/2011 DWAINE [...] GILBERTO K 780.4 DIZZINESS AND GIDDINESS 03/07/2011 DWAINE BENITO APRN T 780.4 DIZZINESS AND GIDDINESS 03/07/2011 DWAINE BENITO APRN T 780.4 DIZZINESS AND GIDDINESS 03/07/2011 DWAINE BENITO APRN T 780.4 DIZZINESS AND GIDDINESS 03/07/2011 DWAINE BENITO APRN T 780.4 DIZZINESS AND GIDDINESS 03/07/2011 THONG HODGES DWAINE T 780.4 DIZZINESS AND GIDDINESS 03/07/2011 PRICE DO, GILBERTO K 780.4 DIZZINESS AND GIDDINESS 03/07/2011 DWAINE BENITO [...] 07/23/2012 564.00 CONSTIPATION 07/23/2012 DWAINE BENITO APRN T 564.00 CONSTIPATION 07/23/2012 DWAINE BENITO APRN T 564.00 CONSTIPATION 07/23/2012 NEIDA TALBOT MD 564.00 CONSTIPATION 07/23/2012 DWAINE BENITO APRN T 564.00 CONSTIPATION 07/23/2012 NEIDA TALBOT MD 564.00 CONSTIPATION 07/23/2012 DWAINE BENITO APRN T 564.00 CONSTIPATION 07/23/2012 NEIDA TALBOT MD 564.00 CONSTIPATION 07/23/2012 DWAINE BENITO APRN T 564.00 CONSTIPATION 07/23/2012 DWAINE BENITO APRN 564.00 CONSTIPATION 07/23/2012 DWAINE BENITO APRN T 564.00 CONSTIPATION 07/23/2012 THONG INDEPENDENT PRODUCER, DWAINE T 564.00 CONSTIPATION 07/23/2012 THONG INDEPENDENT PRODUCER, DWAINE T 564.00 CONSTIPATION 07/23/2012 THONG INDEPENDENT PRODUCER, DWAINE T 564.00 CONSTIPATION 07/23/2012 THONG INDEPENDENT PRODUCER, DWAINE T 564.00 CONSTIPATION 07/23/2012 THONG INDEPENDENT PRODUCER, DWAINE T 564.00 CONSTIPATION 07/23/2012 YE ANDRADE MD 564.00 CONSTIPATION 07/23/2012 THONG INDEPENDENT PRODUCER, DWAINE T 564.00 CONSTIPATION 07/23/2012 THONG INDEPENDENT PRODUCER, DWAINE T 564.00 CONSTIPATION 07/23/2012 THONG INDEPENDENT PRODUCER, DWAINE T 564.00 CONSTIPATION 07/23/2012 THONG INDEPENDENT PRODUCER, DWAINE T 564.00 CONSTIPATION 07/23/2012 THONG INDEPENDENT PRODUCER, DWAINE T 564.00 CONSTIPATION 07/23/2012 THONG INDEPENDENT PRODUCER, DWAINE T 564.00 CONSTIPATION 07/23/2012 THONG INDEPENDENT PRODUCER, DWAINE T 564.00 CONSTIPATION 07/23/2012 THONG INDEPENDENT PRODUCER, DWAINE T 564.00 CONSTIPATION 07/23/2012 THONG INDEPENDENT PRODUCER, DWAINE T 564.00 CONSTIPATION 07/23/2012 NEIDA TALBOT MD 564.00 CONSTIPATION 07/23/2012 THONG INDEPENDENT PRODUCER, DWAINE T 564.00 CONSTIPATION 07/23/2012 THONG INDEPENDENT PRODUCER, DWAINE T 564.00 CONSTIPATION 07/23/2012 THONG INDEPENDENT PRODUCER, DWAINE T 564.00 CONSTIPATION 07/23/2012 THONG INDEPENDENT PRODUCER, DWAINE T 564.00 CONSTIPATION 07/23/2012 THONG INDEPENDENT PRODUCER, DWAINE T 564.00 CONSTIPATION 07/23/2012 THONG INDEPENDENT PRODUCER, DWAINE T 564.00 CONSTIPATION 07/23/2012 THONG INDEPENDENT PRODUCER, DWAINE T 564.00 CONSTIPATION 07/23/2012 NEIDA TALBOT MD 564.00 CONSTIPATION 07/23/2012 564.00 CONSTIPATION 07/23/2012 THONG INDEPENDENT PRODUCER, DWAINE T 564.00 CONSTIPATION 07/23/2012 THONG INDEPENDENT PRODUCER, DWAINE T 564.00 CONSTIPATION 07/23/2012 THONG INDEPENDENT PRODUCER, DWAINE T 564.00 CONSTIPATION 07/23/2012 THONG INDEPENDENT PRODUCER, DWAINE T 564.00 CONSTIPATION 07/23/2012 THONG SAAVEDRAN, DWAINE T 564.00 CONSTIPATION 07/23/2012 NEIDA TALBOT MD 564.00 CONSTIPATION 07/23/2012 THONG INDEPENDENT PRODUCER, DWAINE T 564.00 CONSTIPATION 07/23/2012 THONG INDEPENDENT PRODUCER, DWAINE T 564.00 CONSTIPATION 07/23/2012 PRICE DO, GILBERTO K 564.00 CONSTIPATION 07/23/2012 THONG INDEPENDENT PRODUCER, DWAINE T 564.00 CONSTIPATION 07/23/2012 THONG INDEPENDENT PRODUCER, DWAINE T 564.00 CONSTIPATION 07/23/2012 THONG INDEPENDENT PRODUCER, DWAINE T 564.00 CONSTIPATION 07/23/2012 THONG INDEPENDENT PRODUCER, DWAINE T 564.00 CONSTIPATION 07/23/2012 PRICE DO, GILBERTO K 564.00 CONSTIPATION 07/23/2012 THONG INDEPENDENT PRODUCER, DWAINE T 564.00 CONSTIPATION 07/23/2012 THONG INDEPENDENT PRODUCER, DWAINE T 564.00 CONSTIPATION 07/23/2012 THONG INDEPENDENT PRODUCER, DWAINE T 564.00 CONSTIPATION 07/23/2012 THONG INDEPENDENT PRODUCER, DWAINE T 564.00 CONSTIPATION 07/23/2012 THONG INDEPENDENT PRODUCER, DWAINE T 564.00 CONSTIPATION 07/23/2012 THONG INDEPENDENT PRODUCER, DWAINE T 564.00 CONSTIPATION 07/23/2012 THONG INDEPENDENT PRODUCER, DWAINE T 564.00 CONSTIPATION 07/23/2012 THONG INDEPENDENT PRODUCER, DWAINE T 564.00 CONSTIPATION 07/23/2012 THONG INDEPENDENT PRODUCER, DWAINE T 564.00 CONSTIPATION 07/23/2012 THONG INDEPENDENT PRODUCER, DWAINE T 564.00 CONSTIPATION 08/11/2012 E879.6 URINARY [...] WITHOUT MISADVENTURE AT TIME OF PROCED 08/11/2012 THONG INDEPENDENT PRODUCER, DWAINE T E879.6 URINARY CATHETERIZATION THE CAUSE OF [...] WITHOUT MISADVENTURE AT TIME OF PROCED 08/11/2012 YE ANDRADE MD E879.6 URINARY CATHETERIZATION THE CAUSE OF [...] WITHOUT MISADVENTURE AT TIME OF PROCED 08/11/2012 DWIANE BENITO APRN E879.6 URINARY CATHETERIZATION THE CAUSE [...] NEIDA TALBOT MD 724.3 SCIATICA 09/13/2012 THONG INDEPENDENT PRODUCER, DWAINE T 724.3 SCIATICA 09/13/2012 THONG INDEPENDENT PRODUCER, DWAINE T 724.3 SCIATICA 09/13/2012 THONG INDEPENDENT PRODUCER, DWAINE T 724.3 SCIATICA 09/13/2012 THONG INDEPENDENT PRODUCER, DWAINE T 724.3 SCIATICA 09/13/2012 THONG INDEPENDENT PRODUCER, DWAINE T 724.3 SCIATICA 09/13/2012 THONG INDEPENDENT PRODUCER, DWAINE T 724.3 SCIATICA 09/13/2012 THONG INDEPENDENT PRODUCER, DWAINE T 724.3 SCIATICA 09/13/2012 THONG INDEPENDENT PRODUCER, DWAINE T 724.3 SCIATICA 09/13/2012 RAYMOND MORRISON, YE Robles 724.3 SCIATICA 09/13/2012 THONG INDEPENDENT PRODUCER, DWAINE T 724.3 SCIATICA 09/13/2012 THONG INDEPENDENT PRODUCER, DWAINE T 724.3 SCIATICA 09/13/2012 THONG INDEPENDENT PRODUCER, DWAINE T 724.3 SCIATICA 09/13/2012 THONG SAAVEDRAN, DWAINE T 724.3 SCIATICA 09/13/2012 THONG SAAVEDRAN, DWAINE T 724.3 SCIATICA 09/13/2012 THONG SAAVEDRAN, DWAINE T 724.3 SCIATICA 09/13/2012 THONG SAAVEDRAN, DWAINE T 724.3 SCIATICA 09/13/2012 THONG SAAVEDRAN, DWAINE T 724.3 SCIATICA 09/13/2012 THONG SAAVEDRAN, DWAINE T 724.3 SCIATICA 09/13/2012 ANTIONE MORRISON, NEIDA 724.3 SCIATICA 09/13/2012 THONG HODGES, DWAINE T 724.3 SCIATICA 09/13/2012 THONG SAAVEDRAN, DWAINE T 724.3 SCIATICA 09/13/2012 THONG SAAVEDRAN, DWAINE T 724.3 SCIATICA 09/13/2012 THONG INDEPENDENT PRODUCER, DWAINE T 724.3 SCIATICA 09/13/2012 THONG INDEPENDENT PRODUCER, DWAINE T 724.3 SCIATICA 09/13/2012 THONG SAAVEDRAN, DWAINE T 724.3 SCIATICA 09/13/2012 THONG SAAVEDRAN, DWAINE T 724.3 SCIATICA 09/13/2012 ANTIONE MORRISON, NEIDA 724.3 SCIATICA 09/13/2012 724.3 SCIATICA 09/13/2012 THONG HODGES, DWAINE T 724.3 SCIATICA 09/13/2012 THONG SAAVEDRAN, DWAINE T 724.3 SCIATICA 09/13/2012 THONG HODGES, DWAINE T 724.3 SCIATICA 09/13/2012 THONG SAAVEDRAN, DWAINE T 724.3 SCIATICA 09/13/2012 THONG SAAVEDRAN, DWAINE T 724.3 SCIATICA 09/13/2012 ANTIONE MORRISON, [...] PRICE DO, GILBERTO K 724.3 SCIATICA 09/13/2012 TOHNG HODGES, DWAINE T 724.3 SCIATICA 09/13/2012 THONG [...] MAMMOGRAM SCREENING 11/30/2012 V76.12 MAMMOGRAM SCREENING 11/30/2012 DWAINE BENITO APRN T V76.12 MAMMOGRAM SCREENING 11/30/2012 DWAINE BENITO APRN T V76.12 MAMMOGRAM SCREENING 11/30/2012 NEIDA TALBOT MD V76.12 MAMMOGRAM SCREENING 11/30/2012 DWAINE BENITO APRN T V76.12 MAMMOGRAM SCREENING 11/30/2012 NEIDA TALBOT MD V76.12 MAMMOGRAM SCREENING 11/30/2012 DWAINE BENITO APRN T V76.12 MAMMOGRAM SCREENING 11/30/2012 ANTIONE MORRISON, NEIDA V76.12 MAMMOGRAM SCREENING 11/30/2012 THONG INDEPENDENT PRODUCER, DWAINE T V76.12 MAMMOGRAM SCREENING 11/30/2012 THONG INDEPENDENT PRODUCER, DWAINE T V76.12 MAMMOGRAM SCREENING 11/30/2012 THONG INDEPENDENT PRODUCER, DWAINE T V76.12 MAMMOGRAM SCREENING 11/30/2012 THONG INDEPENDENT PRODUCER, DWAINE T V76.12 MAMMOGRAM SCREENING 11/30/2012 THONG INDEPENDENT PRODUCER, DWAINE T V76.12 MAMMOGRAM SCREENING 11/30/2012 THONG INDEPENDENT PRODUCER, DWAINE T V76.12 MAMMOGRAM SCREENING 11/30/2012 THONG INDEPENDENT PRODUCER, DWAINE T V76.12 MAMMOGRAM SCREENING 11/30/2012 THONG INDEPENDENT PRODUCER, DWAINE T V76.12 MAMMOGRAM SCREENING 11/30/2012 RAYMOND MORRISON, YE Robles V76.12 MAMMOGRAM SCREENING 11/30/2012 THONG INDEPENDENT PRODUCER, DWAINE T V76.12 MAMMOGRAM SCREENING 11/30/2012 THONG INDEPENDENT PRODUCER, DWAINE T V76.12 MAMMOGRAM SCREENING 11/30/2012 THONG INDEPENDENT PRODUCER, DWAINE T V76.12 MAMMOGRAM SCREENING 11/30/2012 THONG INDEPENDENT PRODUCER, DWAINE T V76.12 MAMMOGRAM SCREENING 11/30/2012 THONG INDEPENDENT PRODUCER, DWAINE T V76.12 MAMMOGRAM SCREENING 11/30/2012 THONG INDEPENDENT PRODUCER, DWAINE T V76.12 MAMMOGRAM SCREENING 11/30/2012 THONG INDEPENDENT PRODUCER, DWAINE T V76.12 MAMMOGRAM SCREENING 11/30/2012 THONG INDEPENDENT PRODUCER, DWAINE T V76.12 MAMMOGRAM SCREENING 11/30/2012 THONG INDEPENDENT PRODUCER, DWAINE T V76.12 MAMMOGRAM SCREENING 11/30/2012 ANTIONE MORRISON, NEIDA V76.12 MAMMOGRAM SCREENING 11/30/2012 THONG INDEPENDENT PRODUCER, DWAINE T V76.12 MAMMOGRAM SCREENING 11/30/2012 THONG INDEPENDENT PRODUCER, DWAINE T V76.12 MAMMOGRAM SCREENING 11/30/2012 THONG INDEPENDENT PRODUCER, DWAINE T V76.12 MAMMOGRAM SCREENING 11/30/2012 THONG INDEPENDENT PRODUCER, DWAINE T V76.12 MAMMOGRAM SCREENING 11/30/2012 THONG INDEPENDENT PRODUCER, DWAINE T V76.12 MAMMOGRAM SCREENING 11/30/2012 THONG INDEPENDENT PRODUCER, DWAINE T V76.12 MAMMOGRAM SCREENING 11/30/2012 THONG INDEPENDENT PRODUCER, DWAINE T V76.12 MAMMOGRAM SCREENING 11/30/2012 ANTIONE MORRISON, NEIDA V76.12 MAMMOGRAM SCREENING 11/30/2012 V76.12 MAMMOGRAM SCREENING 11/30/2012 THONG INDEPENDENT PRODUCER, DWAINE T V76.12 MAMMOGRAM SCREENING 11/30/2012 THONG INDEPENDENT PRODUCER, DWAINE T V76.12 MAMMOGRAM SCREENING 11/30/2012 THONG INDEPENDENT PRODUCER, DWAINE T V76.12 MAMMOGRAM SCREENING 11/30/2012 THONG INDEPENDENT PRODUCER, DWAINE T V76.12 MAMMOGRAM SCREENING 11/30/2012 THONG INDEPENDENT PRODUCER, DWAINE T V76.12 MAMMOGRAM SCREENING 11/30/2012 ANTIONE MORRISON, NEIDA V76.12 MAMMOGRAM SCREENING 11/30/2012 THONG INDEPENDENT PRODUCER, DWAINE T V76.12 MAMMOGRAM SCREENING 11/30/2012 THONG INDEPENDENT PRODUCER, DWAINE T V76.12 MAMMOGRAM SCREENING 11/30/2012 PRICE DO, GILBERTO K V76.12 MAMMOGRAM SCREENING 11/30/2012 THONG INDEPENDENT PRODUCER, DWAINE T V76.12 MAMMOGRAM SCREENING 11/30/2012 THONG INDEPENDENT PRODUCER, DWAINE T V76.12 MAMMOGRAM SCREENING 11/30/2012 THONG INDEPENDENT PRODUCER, DWAINE T V76.12 MAMMOGRAM SCREENING 11/30/2012 THONG INDEPENDENT PRODUCER, DWAINE T V76.12 MAMMOGRAM SCREENING 11/30/2012 PRICE DO, GILBERTO K V76.12 MAMMOGRAM SCREENING 11/30/2012 THONG INDEPENDENT PRODUCER, DWAINE T V76.12 MAMMOGRAM SCREENING 11/30/2012 THONG INDEPENDENT PRODUCER, DWAINE T V76.12 MAMMOGRAM SCREENING 11/30/2012 THONG INDEPENDENT PRODUCER, DWAINE T V76.12 MAMMOGRAM SCREENING 11/30/2012 THONG INDEPENDENT PRODUCER, DWAINE T V76.12 MAMMOGRAM SCREENING 11/30/2012 THONG INDEPENDENT PRODUCER, DWAINE T V76.12 MAMMOGRAM SCREENING 11/30/2012 THONG INDEPENDENT PRODUCER, DWAINE T V76.12 MAMMOGRAM SCREENING 11/30/2012 THONG INDEPENDENT PRODUCER, DWAINE T V76.12 MAMMOGRAM SCREENING 11/30/2012 THONG INDEPENDENT PRODUCER, DWAINE T V76.12 MAMMOGRAM SCREENING 11/30/2012 THONG INDEPENDENT PRODUCER, DWAINE T V76.12 MAMMOGRAM SCREENING 11/30/2012 THONG INDEPENDENT PRODUCER, DWAINE T V76.12 MAMMOGRAM SCREENING 01/27/2013 NEIDA TALBOT MD 465.9 UPPER RESPIRATORY INFECTION 01/27/2013 THONG HODGES, DWAINE Rushing 465.9 UPPER RESPIRATORY INFECTION 01/27/2013 HUERTER MD, NEIDA 465.9 UPPER RESPIRATORY INFECTION 01/27/2013 THOGN INDEPENDENT PRODUCER, DWAINE T 465.9 UPPER RESPIRATORY INFECTION 01/27/2013 NEIDA TALBOT MD 465.9 UPPER RESPIRATORY INFECTION 01/27/2013 THONG INDEPENDENT PRODUCER, DWAINE T 465.9 UPPER RESPIRATORY INFECTION 01/27/2013 THONG INDEPENDENT PRODUCER, DWAINE T 465.9 UPPER RESPIRATORY INFECTION 01/27/2013 THONG INDEPENDENT PRODUCER, DWAINE T 465.9 UPPER RESPIRATORY INFECTION 01/27/2013 THONG INDEPENDENT PRODUCER, DWAINE T 465.9 UPPER RESPIRATORY INFECTION 01/27/2013 THONG INDEPENDENT PRODUCER, DWAINE T 465.9 UPPER RESPIRATORY INFECTION 01/27/2013 THONG INDEPENDENT PRODUCER, DWAINE T 465.9 UPPER RESPIRATORY INFECTION 01/27/2013 THONG INDEPENDENT PRODUCER, DWAINE T 465.9 UPPER RESPIRATORY INFECTION 01/27/2013 THONG INDEPENDENT PRODUCER, DWAINE T 465.9 UPPER RESPIRATORY INFECTION 01/27/2013 RAYMOND MORRISON, YE Robles 465.9 UPPER RESPIRATORY INFECTION 01/27/2013 THONG INDEPENDENT PRODUCER, DWAINE T 465.9 UPPER RESPIRATORY INFECTION 01/27/2013 THONG INDEPENDENT PRODUCER, DWAINE T 465.9 UPPER RESPIRATORY INFECTION 01/27/2013 THONG INDEPENDENT PRODUCER, DWAINE T 465.9 UPPER RESPIRATORY INFECTION 01/27/2013 THONG INDEPENDENT PRODUCER, DWAINE T 465.9 UPPER RESPIRATORY INFECTION 01/27/2013 THONG INDEPENDENT PRODUCER, DWAINE T 465.9 UPPER RESPIRATORY INFECTION 01/27/2013 THONG INDEPENDENT PRODUCER, DWAINE T 465.9 UPPER RESPIRATORY INFECTION 01/27/2013 THONG INDEPENDENT PRODUCER, DWAINE T 465.9 UPPER RESPIRATORY INFECTION 01/27/2013 THONG INDEPENDENT PRODUCER, DWAINE T 465.9 UPPER RESPIRATORY INFECTION 01/27/2013 THONG INDEPENDENT PRODUCER, DWAINE T 465.9 UPPER RESPIRATORY INFECTION 01/27/2013 NEIDA TALBOT MD 465.9 UPPER RESPIRATORY INFECTION 01/27/2013 THONG INDEPENDENT PRODUCER, DWAINE T 465.9 UPPER RESPIRATORY INFECTION 01/27/2013 THONG INDEPENDENT PRODUCER, DWAINE T 465.9 UPPER RESPIRATORY INFECTION 01/27/2013 THONG INDEPENDENT PRODUCER, DWAINE T 465.9 UPPER RESPIRATORY INFECTION 01/27/2013 THONG INDEPENDENT PRODUCER, DWAINE T 465.9 UPPER RESPIRATORY INFECTION 01/27/2013 THONG INDEPENDENT PRODUCER, DWAINE T 465.9 UPPER RESPIRATORY INFECTION 01/27/2013 THONG INDEPENDENT PRODUCER, DWAINE T 465.9 UPPER RESPIRATORY INFECTION 01/27/2013 THONG INDEPENDENT PRODUCER, DWAINE T 465.9 UPPER RESPIRATORY INFECTION 01/27/2013 NEIDA TALBOT MD 465.9 UPPER RESPIRATORY INFECTION 01/27/2013 465.9 UPPER RESPIRATORY INFECTION 01/27/2013 THONG INDEPENDENT PRODUCER, DWAINE T 465.9 UPPER RESPIRATORY INFECTION 01/27/2013 THONG INDEPENDENT PRODUCER, DWAINE T 465.9 UPPER RESPIRATORY INFECTION 01/27/2013 THONG INDEPENDENT PRODUCER, DWAINE T 465.9 UPPER RESPIRATORY INFECTION 01/27/2013 THONG INDEPENDENT PRODUCER, DWAINE T 465.9 UPPER RESPIRATORY INFECTION 01/27/2013 THONG INDEPENDENT PRODUCER, DWAINE T 465.9 UPPER RESPIRATORY INFECTION 01/27/2013 NEIDA TALBOT MD 465.9 UPPER RESPIRATORY INFECTION 01/27/2013 THONG INDEPENDENT PRODUCER, DWAINE T 465.9 UPPER RESPIRATORY INFECTION 01/27/2013 THONG INDEPENDENT PRODUCER, DWAINE T 465.9 UPPER RESPIRATORY INFECTION 01/27/2013 PRICE DO, GILBERTO K 465.9 UPPER RESPIRATORY INFECTION 01/27/2013 THONG INDEPENDENT PRODUCER, DWAINE T 465.9 UPPER RESPIRATORY INFECTION 01/27/2013 THONG INDEPENDENT PRODUCER, DWAINE T 465.9 UPPER RESPIRATORY INFECTION 01/27/2013 THONG INDEPENDENT PRODUCER, DWAINE T 465.9 UPPER RESPIRATORY INFECTION 01/27/2013 THONG INDEPENDENT PRODUCER, DWAINE T 465.9 UPPER RESPIRATORY INFECTION 01/27/2013 PRICE DO, GILBERTO K 465.9 UPPER RESPIRATORY INFECTION 01/27/2013 THONG INDEPENDENT PRODUCER, DWAINE T 465.9 UPPER RESPIRATORY INFECTION 01/27/2013 THONG INDEPENDENT PRODUCER, DWAINE T 465.9 UPPER RESPIRATORY INFECTION 01/27/2013 THONG INDEPENDENT PRODUCER, DWAINE T 465.9 UPPER RESPIRATORY INFECTION 01/27/2013 THONG INDEPENDENT PRODUCER, DWAINE T 465.9 UPPER RESPIRATORY INFECTION 01/27/2013 THONG INDEPENDENT PRODUCER, DWAINE T 465.9 UPPER RESPIRATORY INFECTION 01/27/2013 THONG INDEPENDENT PRODUCER, DWAINE T 465.9 UPPER RESPIRATORY INFECTION 01/27/2013 THONG INDEPENDENT PRODUCER, DWAINE T 465.9 UPPER RESPIRATORY INFECTION 01/27/2013 THONG INDEPENDENT PRODUCER, DWAINE T 465.9 UPPER RESPIRATORY INFECTION 01/27/2013 THONG INDEPENDENT PRODUCER, DWAINE T 465.9 UPPER RESPIRATORY INFECTION 01/27/2013 THONG INDEPENDENT PRODUCER, DWAINE T 465.9 UPPER RESPIRATORY INFECTION 06/14/2013 YE ANDRADE MD 355.9 NEUROPATHY 06/14/2013 YE ANDRADE MD 788.1 pain during urination (dysuria) 06/14/2013 DWAINE BENITO APRN T 355.9 NEUROPATHY 06/14/2013 THONG HODGES DWAINE T 788.1 pain during urination (dysuria) 06/14/2013 THONG INDEPENDENT PRODUCER, DWAINE T 355.9 NEUROPATHY 06/14/2013 THONG INDEPENDENT PRODUCER, DWAINE T 788.1 DYSURIA 06/14/2013 THONG INDEPENDENT PRODUCER, DWAINE T 355.9 NEUROPATHY 06/14/2013 THONG INDEPENDENT PRODUCER, DWAINE T 788.1 DYSURIA 06/14/2013 THONG INDEPENDENT PRODUCER, DWAINE T 355.9 NEUROPATHY 06/14/2013 THONG INDEPENDENT PRODUCER, DWAINE T 788.1 DYSURIA 06/14/2013 THONG INDEPENDENT PRODUCER, DWAINE T 355.9 NEUROPATHY 06/14/2013 THONG INDEPENDENT PRODUCER, DWAINE T 788.1 DYSURIA 06/14/2013 THONG INDEPENDENT PRODUCER, DWAINE T 355.9 NEUROPATHY 06/14/2013 THONG INDEPENDENT PRODUCER, DWAINE T 788.1 DYSURIA 06/14/2013 THONG INDEPENDENT PRODUCER, DWAINE T 355.9 NEUROPATHY 06/14/2013 THONG INDEPENDENT PRODUCER, DWAINE T 788.1 DYSURIA 06/14/2013 THONG INDEPENDENT PRODUCER, DWAINE T 355.9 NEUROPATHY 06/14/2013 THONG INDEPENDENT PRODUCER, DWAINE T 788.1 DYSURIA 06/14/2013 THONG INDEPENDENT PRODUCER, DWAINE T 355.9 NEUROPATHY 06/14/2013 THONG INDEPENDENT PRODUCER, DWAINE T 788.1 DYSURIA 06/14/2013 NEIDA TALBOT MD 355.9 NEUROPATHY 06/14/2013 NEIDA TALBOT MD 788.1 DYSURIA 06/14/2013 THONG INDEPENDENT PRODUCER, DWAINE T 355.9 NEUROPATHY 06/14/2013 THONG INDEPENDENT PRODUCER, DWAINE T 788.1 DYSURIA 06/14/2013 THONG INDEPENDENT PRODUCER, DWAINE T 355.9 NEUROPATHY 06/14/2013 THONG INDEPENDENT PRODUCER, DWAINE T 788.1 DYSURIA 06/14/2013 THONG INDEPENDENT PRODUCER, DWAINE T 355.9 NEUROPATHY 06/14/2013 THONG INDEPENDENT PRODUCER, DWAINE T 788.1 DYSURIA 06/14/2013 THONG INDEPENDENT PRODUCER, DWAINE T 355.9 NEUROPATHY 06/14/2013 THONG INDEPENDENT PRODUCER, DWAINE T 788.1 DYSURIA 06/14/2013 THONG INDEPENDENT PRODUCER, DWAINE T 355.9 NEUROPATHY 06/14/2013 THONG INDEPENDENT PRODUCER, DWAINE T 788.1 DYSURIA 06/14/2013 THONG INDEPENDENT PRODUCER, DWAINE T 355.9 NEUROPATHY 06/14/2013 THONG INDEPENDENT PRODUCER, DWAINE T 788.1 DYSURIA 06/14/2013 THONG INDEPENDENT PRODUCER, DWAINE T 355.9 NEUROPATHY 06/14/2013 THONG INDEPENDENT PRODUCER, DWAINE T 788.1 DYSURIA 06/14/2013 NEIDA TALBOT MD 355.9 NEUROPATHY 06/14/2013 NEIDA TALBOT MD 788.1 DYSURIA 06/14/2013 355.9 NEUROPATHY 06/14/2013 788.1 DYSURIA 06/14/2013 THONG INDEPENDENT PRODUCER, DWAINE T 355.9 NEUROPATHY 06/14/2013 THONG INDEPENDENT PRODUCER, DWAINE T 788.1 DYSURIA 06/14/2013 THONG INDEPENDENT PRODUCER, DWAINE T 355.9 NEUROPATHY 06/14/2013 THONG INDEPENDENT PRODUCER, DWAINE T 788.1 DYSURIA 06/14/2013 THONG INDEPENDENT PRODUCER, DWAINE T 355.9 NEUROPATHY 06/14/2013 THONG INDEPENDENT PRODUCER, DWAINE T 788.1 DYSURIA 06/14/2013 THONG SAAVEDRAN, DWAINE T 355.9 NEUROPATHY 06/14/2013 THONG INDEPENDENT PRODUCER, DWAINE T 788.1 DYSURIA 06/14/2013 DWAINE BENITO APRN T 355.9 NEUROPATHY 06/14/2013 DWAINE BENITO APRN T 788.1 DYSURIA 06/14/2013 NEIDA TALBOT MD 355.9 NEUROPATHY 06/14/2013 NEIDA TALBOT MD 788.1 DYSURIA 06/14/2013 THONG SAAVEDRAN, DWAINE T 355.9 NEUROPATHY 06/14/2013 THONG HODGES, DWAINE T 788.1 DYSURIA 06/14/2013 DWAINE BENITO APRN T 355.9 NEUROPATHY 06/14/2013 THONG INDEPENDENT PRODUCERDWAINE Arredondo T 788.1 DYSURIA 06/14/2013 PRICE DO, GILBERTO K 355.9 NEUROPATHY 06/14/2013 PRICE DO, GILBERTO K 788.1 DYSURIA 06/14/2013 THONG SAAVEDRANDWAINE T 355.9 NEUROPATHY 06/14/2013 THONG INDEPENDENT PRODUCERDWAINE T 788.1 DYSURIA 06/14/2013 THONG INDEPENDENT PRODUCER, DWAINE T 355.9 NEUROPATHY 06/14/2013 THONG INDEPENDENT PRODUCER, DWAINE T 788.1 DYSURIA 06/14/2013 THONG INDEPENDENT PRODUCERDWAINE T 355.9 NEUROPATHY 06/14/2013 THONG INDEPENDENT PRODUCER, DWAINE T 788.1 DYSURIA 06/14/2013 THONG INDEPENDENT PRODUCERDWAINE Arredondo T 355.9 NEUROPATHY 06/14/2013 DWAINE BENITO APRN T 788.1 DYSURIA 06/14/2013 PRICE DO, GILBERTO K 355.9 NEUROPATHY 06/14/2013 PRICE DO, GILBERTO K 788.1 DYSURIA 06/14/2013 THONG INDEPENDENT PRODUCER, DWAINE T 355.9 NEUROPATHY 06/14/2013 THONG INDEPENDENT PRODUCER, DWAINE T 788.1 DYSURIA 06/14/2013 THONG INDEPENDENT PRODUCER, DWAINE T 355.9 NEUROPATHY 06/14/2013 THONG INDEPENDENT PRODUCER, DWAINE T 788.1 DYSURIA 06/14/2013 THONG INDEPENDENT PRODUCER, DWAINE T 355.9 NEUROPATHY 06/14/2013 THONG INDEPENDENT PRODUCERDWAINE T 788.1 DYSURIA 06/14/2013 THONG INDEPENDENT PRODUCERDWAINE T 355.9 NEUROPATHY 06/14/2013 THONG INDEPENDENT PRODUCER, DWAINE T 788.1 DYSURIA 06/14/2013 THONG INDEPENDENT PRODUCERDWAINE T 355.9 NEUROPATHY 06/14/2013 THONG INDEPENDENT PRODUCERDWAINE T 788.1 DYSURIA 06/14/2013 THONG INDEPENDENT PRODUCERDWAINE T 355.9 NEUROPATHY 06/14/2013 THONG INDEPENDENT PRODUCERDWAINE T 788.1 DYSURIA 06/14/2013 THONG INDEPENDENT PRODUCERDWAINE T 355.9 NEUROPATHY 06/14/2013 THONG INDEPENDENT PRODUCERDWAINE T 788.1 DYSURIA 06/14/2013 THONG INDEPENDENT PRODUCERDWAINE T 355.9 NEUROPATHY 06/14/2013 THONG INDEPENDENT PRODUCERDWAINE T 788.1 DYSURIA 06/14/2013 THONG INDEPENDENT PRODUCERDWAINE T 355.9 NEUROPATHY 06/14/2013 THONG INDEPENDENT PRODUCERDWAINE T 788.1 DYSURIA 06/14/2013 THONG INDEPENDENT PRODUCERDWAINE T 355.9 NEUROPATHY 06/14/2013 THONG INDEPENDENT PRODUCERDWAINE T 788.1 DYSURIA 06/27/2013 DWAINE BENITO APRN [...] NEIDA TALBOT MD 847.0 SPRAIN/STRAIN NECK 06/27/2013 DWANIE BENITO APRN T 847.0 SPRAIN/STRAIN NECK 06/27/2013 [...] NEIDA TALBOT MD 847.0 SPRAIN/STRAIN NECK 06/27/2013 DAWINE BENITO APRN T 847.0 SPRAIN/STRAIN NECK 06/27/2013 DWAINE BENITO APRN T 847.0 SPRAIN/STRAIN NECK 06/27/2013 ERNESTO PRICE DOA K 847.0 SPRAIN/STRAIN NECK 06/27/2013 DWAINE BENITO APRN T 847.0 SPRAIN/STRAIN NECK 06/27/2013 DWAINE BENITO APRN T 847.0 SPRAIN/STRAIN NECK 06/27/2013 DWAINE BENITO APRN T 847.0 SPRAIN/STRAIN NECK 06/27/2013 DWAINE BENITO APRN T 847.0 SPRAIN/STRAIN NECK 06/27/2013 PRICE DO GILBERTO K 847.0 SPRAIN/STRAIN NECK 06/27/2013 DWAINE [...] AND ADJUSTMENT OF URINARY DEVICES 08/03/2013 PRICE DO GILBERTO K V53.6 FITTING AND ADJUSTMENT OF URINARY [...] BING MORRISON, HONG Alba Ot 079.99 08/28/2013 BING MORRISON, HONG Alba Ot 786.2 11/09/2013 NEIDA TALBOT MD 682.9 [...] AND ABSCESS OF UNSPECIFIED SITES 11/09/2013 PRICE DO GILBERTO K 682.9 CELLULITIS AND ABSCESS OF UNSPECIFIED SITES 11/09/2013 DWAINE BENITO APRN 682.9 CELLULITIS AND ABSCESS OF UNSPECIFIED SITES 11/09/2013 DWAINE BENITO APRN 682.9 CELLULITIS AND ABSCESS OF UNSPECIFIED SITES 11/09/2013 DWAINE BENITO APRN 682.9 CELLULITIS AND ABSCESS OF UNSPECIFIED SITES 11/09/2013 DWAINE BENITO APRN 682.9 CELLULITIS AND ABSCESS OF UNSPECIFIED SITES 11/09/2013 THONG INDEPENDENT PRODUCER, DWAINE T 682.9 CELLULITIS AND ABSCESS OF UNSPECIFIED SITES 11/09/2013 THONG INDEPENDENT PRODUCERDWAINE T 682.9 CELLULITIS AND ABSCESS OF UNSPECIFIED [...] SAAVEDRAN, DWAINE T 564.00 CONSTIPATION 01/16/2014 THONG INDEPENDENT PRODUCER, DWAINE T 564.00 CONSTIPATION 01/16/2014 THONG INDEPENDENT PRODUCER, DWAINE T 564.00 CONSTIPATION 01/16/2014 THONG SAAVEDRAN, DWAIEN T 564.00 CONSTIPATION 01/16/2014 PRICE DOERNESTOA K 564.00 CONSTIPATION 01/16/2014 THONG INDEPENDENT PRODUCER, DWAINE T 564.00 CONSTIPATION 01/16/2014 THONG INDEPENDENT PRODUCER, DWAINE T 564.00 CONSTIPATION 01/16/2014 THONG INDEPENDENT PRODUCER, DWAINE T 564.00 CONSTIPATION 01/16/2014 THONG INDEPENDENT PRODUCER, DWAINE T 564.00 CONSTIPATION 01/16/2014 THONG INDEPENDENT PRODUCER, DWAINE T 564.00 CONSTIPATION 01/16/2014 THONG INDEPENDENT PRODUCER, DWAINE T 564.00 CONSTIPATION 01/16/2014 THONG INDEPENDENT PRODUCER, DWAINE T 564.00 CONSTIPATION 01/16/2014 THONG INDEPENDENT PRODUCER, DWAINE T 564.00 CONSTIPATION 01/16/2014 THONG INDEPENDENT PRODUCER, DWAINE T 564.00 CONSTIPATION 01/16/2014 THONG INDEPENDENT PRODUCER, DWAINE T 564.00 CONSTIPATION 02/25/2014 DWAINE BENITO APRN T 465.9 UPPER RESPIRATORY INFECTION 02/25/2014 DWAINE BENITO APRN T 465.9 UPPER RESPIRATORY INFECTION 02/25/2014 PRICE DO, GILBERTO K 465.9 UPPER RESPIRATORY INFECTION 02/25/2014 THONG SAAVEDRANDWAINE T 465.9 UPPER RESPIRATORY INFECTION 02/25/2014 DWAINE BENITO APRN T 465.9 UPPER RESPIRATORY INFECTION 02/25/2014 THONG INDEPENDENT PRODUCER, DWAINE T 465.9 UPPER RESPIRATORY INFECTION 02/25/2014 THONG INDEPENDENT PRODUCER, DWAINE T 465.9 UPPER RESPIRATORY INFECTION 02/25/2014 THONG INDEPENDENT PRODUCER, DWAINE T 465.9 UPPER RESPIRATORY INFECTION 02/25/2014 THONG INDEPENDENT PRODUCER, DWAINE T 465.9 UPPER RESPIRATORY INFECTION 02/25/2014 THONG INDEPENDENT PRODUCER, DWAINE T 465.9 UPPER RESPIRATORY INFECTION 02/25/2014 THONG INDEPENDENT PRODUCER, DWAINE T 465.9 UPPER RESPIRATORY INFECTION 02/25/2014 THONG INDEPENDENT PRODUCER, DWAINE T 465.9 UPPER RESPIRATORY INFECTION 02/25/2014 THONG INDEPENDENT PRODUCER, DWAINE T 465.9 UPPER RESPIRATORY INFECTION 02/27/2014 DINAH CONTEH DO Ot 493.90 02/27/2014 DINAH CNOTEH DO Ot 786.2 02/27/2014 Ot 599.0 02/27/2014 [...] APOLLO Castillo Ot 719.45 02/27/2014 DWAINE BENITO STRESS TEST TECHNICIAN Ot 707.05 02/27/2014 DWAINE BENITO STRESS TEST TECHNICIAN Ot 707.20 03/02/2014 GILBERTO PRICE DO K Ot 250.00 03/02/2014 GILBERTO PRICE DO K Ot 356.1 03/02/2014 GILBERTO PRICE DO K Ot 465.9 03/02/2014 GILBERTO PRICE DO K Ot 490 03/02/2014 PRICE DOGILBERTO Ot 707.04 03/02/2014 GILBERTO PRICE DO Ot 707.20 03/02/2014 GILBERTO PRICE DO K Ot 786.59 03/02/2014 GILBERTO PRICE DO Ot V04.81 08/22/2014 Ot 592.1 08/22/2014 [...] MATTHEW MORRISON, ALYSIA Rushing Ot 786.2 05/29/2015 DAVID CONTEH DOA K Ot E11.9 05/29/2015 WERO , DINAH K Ot F17.210 05/29/2015 WERO , DINAH K Ot N31.9 05/29/2015 WERO , DINAH K Ot N39.0 05/29/2015 WERO GUILLAUME, DINAH K Ot Z79.899 07/19/2015 SHIRLEY KIRKPATRICK MD Ot F17.210 NICOTINE DEPENDENCE, CIGARETTES, UNCOMPL 07/19/2015 SHIRLEY KIRKPATRICK MD Ot 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 MOTOR AND SENSORY NEUROPATHY 07/19/2015 SHIRLEY KIRKPATRICK MD Ot 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 07/20/2015 SHIRLEY KIRKPATRICK MD Ot F17.210 07/20/2015 SHIRLEY KIRKPATRICK MD Ot G60.0 07/20/2015 SHIRLEY KIRKPATRICK MD Ot T83.098A 07/31/2015 HANLEY DO, ADALID L Ot K59.00 CONSTIPATION, UNSPECIFIED 08/01/2015 HANLEY DO, ADALID L Ot K59.00 CONSTIPATION, UNSPECIFIED 08/06/2015 HANLEY DO, ADALID L Ot K59.00 CONSTIPATION, UNSPECIFIED 01/30/2016 VICENTE MORRISON, MAIKEL A Ot E11.9 TYPE 2 DIABETES MELLITUS WITHOUT COMPLIC 01/30/2016 VICENTE MORRISON MAIKEL A Ot F17.210 NICOTINE DEPENDENCE, CIGARETTES, UNCOMPL 01/30/2016 ALICIA ZHANG MDNT A Ot 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 MOTOR AND SENSORY NEUROPATHY 01/30/2016 ALICIA ZHANG MDNT A Ot N39.0 URINARY TRACT INFECTION, SITE NOT SPECIF 01/30/2016 MAIKEL ZHANG MD A Ot R30.0 DYSURIA 01/30/2016 ALICIA ZHANG MDNT A Ot Z79.84 ALF (CURRENT) USE OF ORAL HYPOGLYC 01/30/2016 VICENTE MORRISON MAIKEL A Ot Z79.899 OTHER SOCIAL GROUP WORKER (CURRENT) DRUG THERAPY 01/31/2016 MAIKEL ZHANG MD A Ot E11.9 TYPE 2 DIABETES MELLITUS WITHOUT COMPLIC 01/31/2016 ALICIA ZHANG MDNT A Ot F17.210 NICOTINE DEPENDENCE, CIGARETTES, UNCOMPL 01/31/2016 MAIKEL ZHANG MD A Ot 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 MOTOR AND SENSORY NEUROPATHY 01/31/2016 MAIKEL ZHANG MD A Ot N39.0 URINARY TRACT INFECTION, SITE NOT SPECIF 01/31/2016 ALICIA ZHANG MDNT A Ot R30.0 DYSURIA 01/31/2016 ALICIA ZHANG MDNT A Ot Z79.84 ALF (CURRENT) USE OF ORAL HYPOGLYC 01/31/2016 VICENTE MORRISON MAIKEL A Ot Z79.899 OTHER SOCIAL GROUP WORKER (CURRENT) DRUG THERAPY 02/05/2016 MAIKEL ZHANG MD A Ot E11.9 TYPE 2 DIABETES MELLITUS WITHOUT COMPLIC 02/05/2016 ALICIA ZHANG MDNT A Ot F17.210 NICOTINE DEPENDENCE, CIGARETTES, UNCOMPL 02/05/2016 ALICIA ZHANG MDNT A Ot 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 MOTOR AND SENSORY NEUROPATHY 02/05/2016 ALICIA ZHANG MDNT A Ot N39.0 URINARY TRACT INFECTION, SITE NOT SPECIF 02/05/2016 ALICIA ZHANG MDNT A Ot R30.0 DYSURIA 02/05/2016 ALICIA ZHANG MDNT A Ot Z79.84 ALF (CURRENT) USE OF ORAL HYPOGLYC 02/05/2016 VICENTE MORRISON MAIKEL A Ot Z79.899 OTHER SOCIAL GROUP WORKER (CURRENT) DRUG THERAPY 02/07/2016 JOVAN CASON MD [...] CASTRO MD Ot N31.9 NEUROMUSCULAR DYSFUNCTION OF BLADDER, UN 04/26/2016 ALYSIA CASTRO MD Ot R10.2 PELVIC AND PERINEAL PAIN 04/26/2016 ALYSIA CASTRO MD Ot T83.021A DISPLACEMENT OF INDWELLING URETHRAL CATH 04/26/2016 ALYSIA CASTRO MD Ot Z79.84 SOCIAL GROUP WORKER (CURRENT) USE OF ORAL HYPOGLYC 04/28/2016 ALYSIA CASTRO MD Ot E11.9 TYPE 2 DIABETES MELLITUS WITHOUT COMPLIC 04/28/2016 ALYSIA CASTRO MD Ot F17.210 NICOTINE DEPENDENCE, CIGARETTES, UNCOMPL 04/28/2016 ALYSIA CASTRO MD Ot N31.9 NEUROMUSCULAR DYSFUNCTION OF BLADDER, UN 04/28/2016 ALYSIA CASTRO MD Ot R10.2 PELVIC AND PERINEAL PAIN 04/28/2016 ALYSIA CASTRO MD Ot T83.021A DISPLACEMENT OF INDWELLING URETHRAL CATH 04/28/2016 ALYSIA CASTRO MD Ot Z79.84 ALF (CURRENT) USE OF ORAL HYPOGLYC 05/04/2016 JOVAN [...] Ot M41.9 SCOLIOSIS, UNSPECIFIED 05/20/2016 HONG SMART MD, Ot E11.9 TYPE 2 DIABETES MELLITUS WITHOUT COMPLIC 05/20/2016 HONG SMART MD Ot 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 MOTOR AND SENSORY NEUROPATHY 05/20/2016 HONG SMART MD Ot K59.00 CONSTIPATION, UNSPECIFIED 05/20/2016 HONG SMART MD Ot T83.511A I/I REACT D/T INDWELLING URETHRAL CATHET 05/20/2016 HONG SMART MD, Ot Z79.84 SOCIAL GROUP WORKER (CURRENT) USE OF ORAL HYPOGLYC 05/20/2016 HONG SMART MD Ot Z91.19 PATIENT'S NONCOMPLIANCE W [facility] 09/21/2016 SHIRLEY KIRKPATRICK MD, Ot E11.9 TYPE 2 DIABETES MELLITUS WITHOUT COMPLIC 09/21/2016 SHIRLEY KIRKPATRICK MD, Ot F17.210 NICOTINE DEPENDENCE, CIGARETTES, UNCOMPL 09/21/2016 SHIRLEY KIRKPATRICK MD, Ot N39.0 URINARY TRACT INFECTION, SITE NOT SPECIF 09/21/2016 SHIRLEY KIRKPATRICK MD, Ot Z79.84 ALF (CURRENT) USE OF ORAL HYPOGLYC 09/21/2016 SHIRLEY KIRKPATRICK MD, Ot Z87.442 PERSONAL HISTORY OF URINARY CALCULI 09/25/2016 DWAINE BENITO STRESS TEST TECHNICIAN Ot N39.0 URINARY TRACT INFECTION, SITE NOT SPECIF 09/25/2016 DWAINE BENITO STRESS TEST TECHNICIAN Ot N39.0 URINARY TRACT INFECTION, SITE NOT SPECIF 09/25/2016 DWAINE BENITO STRESS TEST TECHNICIAN Ot N39.0 URINARY TRACT INFECTION, SITE NOT SPECIF 09/26/2016 DWAINE BENITO STRESS TEST TECHNICIAN Ot N39.0 URINARY TRACT INFECTION, SITE NOT SPECIF 09/27/2016 SHIRLEY KIRKPATRICK MD, Ot E11.9 TYPE 2 DIABETES MELLITUS WITHOUT COMPLIC 09/27/2016 SHIRLEY KIRKPATRICK MD, Ot F17.210 NICOTINE DEPENDENCE, CIGARETTES, UNCOMPL 09/27/2016 SHIRLEY KIRKPATRICK MD, Ot N39.0 URINARY TRACT INFECTION, SITE NOT SPECIF 09/27/2016 SHIRLEY KIRKPATRICK MD, Ot Z79.84 SOCIAL GROUP WORKER (CURRENT) USE OF ORAL HYPOGLYC 09/27/2016 SHIRLEY KIRKPATRICK MD Ot Z87.442 PERSONAL HISTORY OF URINARY CALCULI 09/27/2016 DWAINE BENITO STRESS TEST TECHNICIAN Ot N39.0 URINARY TRACT INFECTION, SITE NOT SPECIF 09/27/2016 DWAINE BENITO STRESS TEST TECHNICIAN Ot N39.0 URINARY TRACT INFECTION, SITE NOT SPECIF 09/28/2016 DWAINE BENITO STRESS TEST TECHNICIAN Ot N39.0 URINARY TRACT INFECTION, SITE NOT SPECIF 09/28/2016 DWAINE BENITO STRESS TEST TECHNICIAN Ot N39.0 URINARY TRACT INFECTION, SITE NOT SPECIF 09/28/2016 THONGDWAINE STRESS TEST TECHNICIAN Ot N39.0 URINARY TRACT INFECTION, SITE NOT SPECIF 09/29/2016 THONGDWAINE STRESS TEST TECHNICIAN Ot N39.0 URINARY TRACT INFECTION, SITE NOT SPECIF 09/29/2016 THONGDWAINE STRESS TEST TECHNICIAN Ot N39.0 URINARY TRACT INFECTION, SITE NOT SPECIF 09/30/2016 DWAINE BENITO STRESS TEST TECHNICIAN Ot N39.0 URINARY TRACT INFECTION, SITE NOT SPECIF 10/18/2016 BEST MCKEE MD Ot E11.9 TYPE 2 DIABETES MELLITUS WITHOUT COMPLIC 10/18/2016 BEST MCKEE MD Ot F41.9 ANXIETY DISORDER, UNSPECIFIED 10/18/2016 BEST MCKEE MD Ot N39.0 URINARY TRACT INFECTION, SITE NOT SPECIF 10/18/2016 BEST MCKEE MD Ot R00.2 PALPITATIONS 10/18/2016 BEST MCKEE MD Ot Z77.22 CNTCT W AND EXPSR TO ENVIRON TOBACCO SMO 10/18/2016 BEST MCKEE MD Ot Z79.84 SOCIAL GROUP WORKER (CURRENT) USE OF ORAL HYPOGLYC 10/18/2016 BEST MCKEE MD Ot Z87.01 PERSONAL HISTORY OF PNEUMONIA (RECURRENT 10/18/2016 BEST MCKEE MD Ot Z87.442 PERSONAL HISTORY OF URINARY CALCULI 10/18/2016 BEST MCKEE MD Ot Z96.0 PRESENCE OF UROGENITAL IMPLANTS 10/18/2016 BEST MCKEE MD Ot Z98.1 ARTHRODESIS STATUS 10/20/2016 BEST MCKEE MD Ot E11.9 TYPE 2 DIABETES MELLITUS WITHOUT COMPLIC 10/20/2016 BEST MCKEE MD Ot F17.210 NICOTINE DEPENDENCE, CIGARETTES, UNCOMPL 10/20/2016 BEST MCKEE MD Ot F41.9 ANXIETY DISORDER, UNSPECIFIED 10/20/2016 BEST MCKEE MD Ot N39.0 URINARY TRACT INFECTION, SITE NOT SPECIF 10/20/2016 BEST MCKEE MD Ot R00.2 PALPITATIONS 10/20/2016 BEST MCKEE MD, Ot Z79.84 ALF (CURRENT) USE OF ORAL HYPOGLYC 10/20/2016 BEST MCKEE MD Ot Z87.01 PERSONAL HISTORY OF PNEUMONIA (RECURRENT 10/20/2016 BEST MCKEE MD, Ot Z87.442 PERSONAL HISTORY OF URINARY CALCULI 10/20/2016 BEST MCKEE MD Ot Z96.0 PRESENCE OF UROGENITAL IMPLANTS 10/20/2016 BEST MCKEE MD, Ot Z98.1 ARTHRODESIS STATUS 11/25/2016 DWAINE BENITO Ot N39.0 URINARY TRACT INFECTION, SITE NOT SPECIF 12/23/2016 DWAINE BENITO STRESS TEST TECHNICIAN Ot N39.0 URINARY TRACT INFECTION, SITE NOT SPECIF 12/24/2016 ALYSIA CASTRO MD Ot E11.9 TYPE 2 DIABETES MELLITUS WITHOUT COMPLIC 12/24/2016 ALYSIA CASTRO MD Ot F17.210 NICOTINE DEPENDENCE, CIGARETTES, UNCOMPL 12/24/2016 ALYSIA CASTRO MD Ot F41.9 ANXIETY DISORDER, UNSPECIFIED 12/24/2016 ALYSIA CASTRO MD Ot K59.00 CONSTIPATION, UNSPECIFIED 12/24/2016 ALYSIA CASTRO MD, Ot N39.0 URINARY TRACT INFECTION, SITE NOT SPECIF 12/24/2016 ALYSIA CASTRO MD Ot R10.9 UNSPECIFIED ABDOMINAL PAIN 12/24/2016 ALYSIA CASTRO MD, Ot Z79.84 ALF (CURRENT) USE OF ORAL HYPOGLYC 12/24/2016 ALYSIA CASTRO MD, Ot Z80.3 FAMILY HISTORY OF MALIGNANT NEOPLASM OF 12/24/2016 ALYSIA CASTRO MD, Ot Z82.49 FAMILY HX OF ISCHEM HEART DIS AND OTH DI 12/24/2016 ALYSIA CASTRO MD, Ot Z87.09 PERSONAL HISTORY OF OTHER DISEASES OF 12/24/2016 ALYSIA CASTRO MD Ot Z87.440 PERSONAL HISTORY OF URINARY (TRACT) INFE 12/24/2016 ALYSIA CASTRO MD Ot Z87.442 PERSONAL HISTORY OF URINARY CALCULI 12/24/2016 ALYSIA CASTRO MD Ot Z98.1 ARTHRODESIS STATUS 12/24/2016 DWAINE BENITO Ot N39.0 URINARY TRACT INFECTION, SITE NOT SPECIF 12/25/2016 ALYSIA CASTRO MD Ot E11.9 TYPE 2 DIABETES MELLITUS WITHOUT COMPLIC 12/25/2016 ALYSIA CASTRO MD Ot F17.210 NICOTINE DEPENDENCE, CIGARETTES, UNCOMPL 12/25/2016 ALYSIA CASTRO MD Ot F41.9 ANXIETY DISORDER, UNSPECIFIED 12/25/2016 ALYSIA CASTRO MD Ot K59.00 CONSTIPATION, UNSPECIFIED 12/25/2016 ALYSIA CASTRO MD Ot N39.0 URINARY TRACT INFECTION, SITE NOT SPECIF 12/25/2016 ALYSIA CASTRO MD Ot R10.9 UNSPECIFIED ABDOMINAL PAIN 12/25/2016 ALYSIA CASTRO MD Ot Z79.84 ALF (CURRENT) USE OF ORAL HYPOGLYC 12/25/2016 ALYSIA CASTRO MD Ot Z80.3 FAMILY HISTORY OF MALIGNANT NEOPLASM OF 12/25/2016 ALYSIA CASTRO MD Ot Z82.49 FAMILY HX OF ISCHEM HEART DIS AND OTH DI 12/25/2016 ALYSIA CASTRO MD Ot Z87.09 PERSONAL HISTORY OF OTHER DISEASES OF TH 12/25/2016 ALYSIA CASTRO MD Ot Z87.440 PERSONAL HISTORY OF URINARY (TRACT) INFE 12/25/2016 ALYSIA CASTRO MD Ot Z87.442 PERSONAL HISTORY OF URINARY CALCULI 12/25/2016 ALYSIA CASTRO MD Ot Z98.1 ARTHRODESIS STATUS 12/29/2016 ALYSIA CASTRO MD Ot E11.9 TYPE 2 DIABETES MELLITUS WITHOUT COMPLIC 12/29/2016 ALYSIA CASTRO MD Ot F17.210 NICOTINE DEPENDENCE, CIGARETTES, UNCOMPL 12/29/2016 ALYSIA CASTRO MD Ot F41.9 ANXIETY DISORDER, UNSPECIFIED 12/29/2016 ALYSIA CASTRO MD Ot K59.00 CONSTIPATION, UNSPECIFIED 12/29/2016 ALYSIA CASTRO MD Ot N39.0 URINARY TRACT INFECTION, SITE NOT SPECIF 12/29/2016 ALYSIA CASTRO MD Ot R10.9 UNSPECIFIED ABDOMINAL PAIN 12/29/2016 ALYSIA CASTRO MD Ot Z79.84 SOCIAL GROUP WORKER (CURRENT) USE OF ORAL HYPOGLYC 12/29/2016 ALYSIA CASTRO MD Ot Z80.3 FAMILY HISTORY OF MALIGNANT NEOPLASM OF 12/29/2016 ALYSIA CASTRO MD Ot Z82.49 FAMILY HX OF ISCHEM HEART DIS AND OTH DI 12/29/2016 ALYSIA CASTRO MD Ot Z87.09 PERSONAL HISTORY OF OTHER DISEASES OF 12/29/2016 ALYSIA CASTRO MD Ot Z87.440 PERSONAL HISTORY OF URINARY (TRACT) INFE 12/29/2016 ALYSIA CASTRO MD Ot Z87.442 PERSONAL HISTORY OF URINARY CALCULI 12/29/2016 ALYSIA CASTRO MD Ot Z98.1 ARTHRODESIS STATUS 01/12/2017 DINAH CONTEH DO Ot E11.9 TYPE 2 DIABETES MELLITUS WITHOUT COMPLIC 01/12/2017 DINAH CONTEH DO Ot F17.210 NICOTINE DEPENDENCE, CIGARETTES, UNCOMPL 01/12/2017 DINAH CONTEH DO Ot F41.9 ANXIETY DISORDER, UNSPECIFIED 01/12/2017 DINAH CONTEH DO Ot N39.0 URINARY TRACT INFECTION, SITE NOT SPECIF 01/12/2017 DINAH CONTEH DO Ot Z79.84 ALF (CURRENT) USE OF ORAL HYPOGLYC 01/12/2017 DINAH CONTEH DO Ot Z80.3 FAMILY HISTORY OF MALIGNANT NEOPLASM OF 01/12/2017 DINAH CONTEH DO Ot Z87.01 PERSONAL HISTORY OF PNEUMONIA (RECURRENT 01/12/2017 DINAH CONTEH DO Ot Z87.19 PERSONAL HISTORY OF OTHER DISEASES OF TH 01/12/2017 DINAH CONTEH DO Ot Z87.448 PERSONAL HISTORY OF OTHER DISEASES OF UR 01/12/2017 DINAH CONTEH DO Ot Z96.0 PRESENCE OF UROGENITAL IMPLANTS 01/12/2017 DINAH CONTEH DO Ot Z98.1 ARTHRODESIS STATUS 01/14/2017 DINAH CONTEH DO Ot E11.9 TYPE 2 DIABETES MELLITUS WITHOUT COMPLIC 01/14/2017 DINAH CONTEH DO Ot F17.210 NICOTINE DEPENDENCE, CIGARETTES, UNCOMPL 01/14/2017 DINAH CONTEH DO Ot F41.9 ANXIETY DISORDER, UNSPECIFIED 01/14/2017 DINAH CONTEH DO Ot N39.0 URINARY TRACT INFECTION, SITE NOT SPECIF 01/14/2017 DINAH CONTEH DO Ot Z79.84 ALF (CURRENT) USE OF ORAL HYPOGLYC 01/14/2017 WERO GUILLAUME DINAH Alba Ot Z80.3 FAMILY HISTORY OF MALIGNANT NEOPLASM OF 01/14/2017 DINAH CONTEH DO Ot Z87.01 PERSONAL HISTORY OF PNEUMONIA (RECURRENT 01/14/2017 WERO GUILLAUME DINAH Alba Ot Z87.19 PERSONAL HISTORY OF OTHER DISEASES OF TH 01/14/2017 DINAH CONTEH DO Anjali Ot Z87.448 PERSONAL HISTORY OF OTHER DISEASES OF UR 01/14/2017 DINAH CONTEH DO Ot Z96.0 PRESENCE OF UROGENITAL IMPLANTS 01/14/2017 DINAH CONTEH DO Ot Z98.1 ARTHRODESIS STATUS Procedures Code Description [place] [address] UA W/ CULTURE IF INDICATED 03/01/2012 67151 CULTURE URINE 03/03/2012 65476 UA W/ CULTURE IF INDICATED 03/31/2012 13988 CULTURE URINE 04/02/2012 90729 UA W/ CULTURE IF INDICATED 04/15/2012 14269 CULTURE URINE 04/17/2012 18106 INSERT BLADDER CATHETER 06/04/2012 80275 INSERT TEMP BLADDER CATH 06/17/2012 32405 INSERT BLADDER CATHETER 07/02/2012 66236 INSERT BLADDER CATHETER 07/16/2012 83375 UA LONG DIP 07/26/2012 31312 CULTURE URINE 07/28/2012 22080 INSERT TEMP BLADDER CATH 07/30/2012 90824 CMP 08/02/2012 78887 LIPID PANEL 08/02/2012 78327 VITAMIN D 25-HYDROXY (D2,D3 , TOTAL) 08/02/2012 65558 A1C (IN-HOUSE) 08/02/2012 03231 TSH 08/02/2012 54678 CBC 08/02/2012 28606 MAMMOGRAM, SCREENING 11/30/2012 81970 UA LONG DIP 11/30/2012 76047 CULTURE URINE 12/01/2012 64860 CULTURE URINE 12/02/2012 78718 CULTURE URINE 02/18/2013 12997 UA W/ CULTURE IF INDICATED 04/20/2013 06284 CULTURE URINE 04/22/2013 81582 CULTURE WOUND (AEROBIC) 05/23/2013 71043 A1C (IN-HOUSE) 06/14/2013 05277 UA W/ CULTURE IF INDICATED 06/20/2013 24918 CULTURE URINE 06/20/2013 90073 INSERT TEMP BLADDER CATH 06/22/2013 95525 UA LONG DIP 07/01/2013 09386 CULTURE URINE 07/02/2013 78148 INSERT TEMP BLADDER CATH 07/06/2013 51550 INSERT TEMP BLADDER CATH 07/20/2013 78174 CULTURE WOUND (AEROBIC) 07/25/2013 70740 CULTURE URINE 08/04/2013 27615 CULTURE WOUND (AEROBIC) 11/09/[address] PELVIS W/O CONTRAST 11/10/2013 24339 CULTURE WOUND (AEROBIC) 12/09/2013 40931 UA W/MICROSCOPY 12/16/2013 13860 UA W/MICROSCOPY 12/16/2013 31157 CULTURE URINE 12/20/2013 54417 CULTURE URINE 12/22/2013 17600 UA W/ CULTURE IF INDICATED 01/04/2014 20703 CULTURE URINE 01/04/2014 10909 CULTURE URINE 05/03/2014 29224 CULTURE URINE 05/05/2014 Results Test Result Range Complete urinalysis with reflex to culture - 01/30/16 16:15 Urine color determination YELLOW NRG Urine clarity determination CLEAR NRG Urine pH measurement by test strip 6.5 5-9 Specific gravity of urine by test strip 1.010 1.016- 1.022 Urine protein assay by test strip, semi-quantitative [...] culture - 01/30/16 16:15 Bacterial urine culture [id number] NRG COLONY COUNT >100,000/ML NRG FTX;REPORTABLE SENSITIVITY REPORTED AT 0803, 02-01-16 NRG URINE CULTURE RESULTS PLUS NRG Bacterial susceptibility panel - 01/30/16 16:15 Gentamicin susceptibility test by minimum inhibitory concentration 4 NRG Tobramycin susceptibility test by minimum inhibitory concentration < = NRG Piperacillin/tazobactam susceptibility test by minimum inhibitory concentration 8 NRG Ciprofloxacin susceptibility test by minimum inhibitory concentration >= NRG Meropenem susceptibility test by minimum inhibitory concentration 1 NRG Cefepime susceptibility test by minimum inhibitory concentration 16 NRG Serum or plasma gentamicin measurement (mass/volume) - 02/04/16 00:15 Serum or plasma gentamicin measurement (mass/volume) 4.6 ug/mL <=10.0 Whole blood basic metabolic panel - 02/04/16 15:40 Serum or plasma sodium measurement (moles/volume) 140 mmol/L 135-145 Serum or plasma potassium measurement (moles/volume) 4.4 mmol/L 3.6-5.0 Serum or plasma chloride measurement (moles/volume) 103 mmol/L 98-107 Carbon dioxide 25 mmol/L 21-32 Serum or plasma anion gap determination (moles/volume) 12 mmol/L 5-14 Serum or plasma urea nitrogen measurement (mass/volume) 9 mg/dL 7-18 Serum or plasma creatinine measurement (mass/volume) 0.39 mg/dL 0.60-1.30 Serum or plasma urea nitrogen/creatinine mass ratio 23 NRG Serum or plasma creatinine measurement with calculation of estimated glomerular filtration rate > NRG Serum or plasma glucose measurement (mass/volume) 82 mg/dL 70-105 Serum or plasma calcium measurement (mass/volume) 9.6 mg/dL 8.5-10.1 Serum or plasma gentamicin measurement (mass/volume) - 02/05/16 00:15 Serum or plasma gentamicin measurement (mass/volume) 4.6 ug/mL <=10.0 Complete urinalysis with reflex to culture - 02/08/16 15:55 Urine color determination YELLOW NRG Urine clarity determination CLEAR NRG Urine pH measurement by test strip 6 5-9 Specific gravity of urine by test strip 1.020 1.016- 1.022 Urine protein assay by test strip, semi-quantitative [...] culture - 02/08/16 15:55 Bacterial urine culture [id number] NRG COLONY COUNT 10,000/ML - 100,000/ML NRG FTX;REPORTABLE SENSITIVITY REPORTED 02/10/16 11:05 NRG Bacterial susceptibility panel - 02/08/16 15:55 Gentamicin susceptibility test by minimum inhibitory concentration R NRG Vancomycin susceptibility test by minimum inhibitory concentration 1 NRG Levofloxacin susceptibility test by minimum inhibitory concentration >= NRG Tetracycline susceptibility test by minimum inhibitory concentration >= NRG Ampicillin susceptibility test by minimum inhibitory concentration < = NRG Ciprofloxacin susceptibility test by minimum inhibitory concentration R NRG Nitrofurantoin susceptibility test by minimum inhibitory concentration <= NRG Linezolid susceptibility test by minimum inhibitory concentration 2 NRG Complete urinalysis with reflex to culture - 04/26/16 20:48 Urine color determination YELLOW NRG Urine clarity determination SLIGHTLY CLOUDY NRG Urine pH measurement by test strip 6 5-9 Specific gravity of urine by test strip 1.010 1.016- 1.022 Urine protein assay by test strip, semi-quantitative [...] 03:50 Blood leukocytes automated count (number/volume) 9.3 10*3/uL 4.3-11.0 Blood erythrocytes automated count (number/volume) 4.02 10*6/uL 4.35-5.85 Venous blood hemoglobin measurement (mass/volume) 12.5 [...] Automated blood platelet mean volume measurement 10.0 [foz_us] 7.4-10.4 Automated blood neutrophils/100 leukocytes 46 % [...] Urine pH measurement by test strip 5 5-9 Specific gravity of urine by test strip 1.020 1.016- 1.022 Urine protein assay by test strip, semi-quantitative [...] culture - 05/20/16 02:35 Bacterial urine culture [id number] NRG COLONY COUNT >100,000/ML NRG FTX;REPORTABLE SENSITIVITY REPORTED 05/21/16 7:45 NRG Bacterial susceptibility panel - 05/20/16 02:35 Gentamicin susceptibility test by minimum inhibitory concentration > = NRG Trimethoprim/sulfamethoxazole susceptibility test by minimum inhibitoryconcentration <= NRG Ampicillin susceptibility test by minimum inhibitory concentration > = NRG Tobramycin susceptibility test by minimum inhibitory concentration 8 NRG Cefazolin susceptibility test by minimum inhibitory concentration < = NRG Ceftriaxone susceptibility test by minimum inhibitory concentration <= NRG Ampicillin/sulbactam susceptibility test by minimum inhibitory concentration 16 NRG Piperacillin/tazobactam susceptibility test by minimum inhibitory concentration <= NRG Ciprofloxacin susceptibility test by minimum inhibitory concentration >= NRG Meropenem susceptibility test by minimum inhibitory concentration < = NRG Nitrofurantoin susceptibility test by minimum inhibitory concentration <= NRG Aztreonam susceptibility test by minimum inhibitory concentration < = NRG Extended spectrum beta lactamase (ESBL) producing bacteria susceptibility test by minimum inhibitory concentration - NRG Amikacin susceptibility test by minimum inhibitory concentration S NRG Complete blood count (CBC) with automated white blood cell (WBC) differential - 09/21/16 20:10 Blood leukocytes automated count (number/volume) 9.7 10*3/uL 4.3-11.0 Blood erythrocytes automated count (number/volume) 4.75 10*6/uL 4.35-5.85 Venous blood hemoglobin measurement (mass/volume) 14.5 [...] Automated blood platelet mean volume measurement 9.8 [foz_us] 7.4-10.4 Automated blood neutrophils/100 leukocytes 56 % [...] Urine pH measurement by test strip 6 5-9 Specific gravity of urine by test strip 1.020 1.016- 1.022 Urine protein assay by test strip, semi-quantitative [...] Serum or plasma sodium measurement (moles/volume) 141 mmol/L 135-145 Serum or plasma potassium measurement (moles/volume) 4.0 mmol/L 3.6-5.0 Serum or plasma chloride measurement (moles/volume) 103 mmol/L 98-107 Carbon dioxide 25 mmol/L 21-32 Serum or plasma anion gap determination (moles/volume) 13 mmol/L 5-14 Serum or plasma urea nitrogen measurement (mass/volume) 11 mg/dL 7-18 Serum or plasma creatinine measurement (mass/volume) 0.42 mg/dL 0.60-1.30 Serum or plasma urea nitrogen/creatinine mass ratio 26 NRG Serum or plasma creatinine measurement with calculation of estimated glomerular filtration rate > NRG Serum or plasma glucose measurement (mass/volume) 90 mg/dL 70-105 Serum or plasma calcium measurement (mass/volume) 10.0 mg/dL 8.5-10.1 Serum or plasma total bilirubin [...] plasma C reactive protein measurement (mass/volume) 1.38 mg /dL 0.00-0.50 Bacterial urine culture - 09/21/16 20:10 Bacterial urine culture [id number] NRG COLONY COUNT 10,000/ML - 100,000/ML NRG FTX;REPORTABLE ID/SENSITIVITY TO FOLLOW NRG Bacterial blood culture - 09/21/16 20:10 Bacterial blood culture NG NRG Bacterial blood culture - 09/21/16 20:30 Bacterial blood culture NG NR Whole blood basic metabolic panel - 09/25/16 14:35 Serum or plasma sodium measurement (moles/volume) 140 mmol/L 135-145 Serum or plasma potassium measurement (moles/volume) 4.2 mmol/L 3.6-5.0 Serum or plasma chloride measurement (moles/volume) 104 mmol/L 98-107 Carbon dioxide 26 mmol/L 21-32 Serum or plasma anion gap determination (moles/volume) 10 mmol/L 5-14 Serum or plasma urea nitrogen measurement (mass/volume) 9 mg/dL 7-18 Serum or plasma creatinine measurement (mass/volume) 0.40 mg/dL 0.60-1.30 Serum or plasma urea nitrogen/creatinine mass ratio 23 0 -20 Serum or plasma creatinine measurement with calculation [...] 22:19 Blood leukocytes automated count (number/volume) 9.7 10*3/uL 4.3-11.0 Blood erythrocytes automated count (number/volume) 4.79 10*6/uL 4.35-5.85 Venous blood hemoglobin measurement (mass/volume) 14.4 [...] Automated blood platelet mean volume measurement 9.4 [foz_us] 7.4-10.4 Automated blood neutrophils/100 leukocytes 53 % [...] Serum or plasma sodium measurement (moles/volume) 142 mmol/L 135-145 Serum or plasma potassium measurement (moles/volume) 4.3 mmol/L 3.6-5.0 Serum or plasma chloride measurement (moles/volume) 102 mmol/L 98-107 Carbon dioxide 24 mmol/L 21-32 Serum or plasma anion gap determination (moles/volume) 16 mmol/L 5-14 Serum or plasma urea nitrogen measurement (mass/volume) 10 mg/dL 7-18 Serum or plasma creatinine measurement (mass/volume) 0.57 mg/dL 0.60-1.30 Serum or plasma urea nitrogen/creatinine mass [...] or plasma troponin i.cardiac measurement (mass/volume) < ng/ mL <0.30 Myoglobin, serum - 10/17/16 22:19 Myoglobin, serum 22.9 ng/mL 10.0-92.0 Complete urinalysis with reflex to culture - 10/17/16 23:20 Urine color determination YELLOW NRG Urine clarity determination SLIGHTLY CLOUDY NRG Urine pH measurement by test strip 6.5 5-9 Specific gravity of urine by test strip 1.010 1.016- 1.022 Urine protein assay by test strip, semi-quantitative [...] culture - 10/17/16 23:20 Bacterial urine culture [id number] NRG COLONY COUNT >100,000/ML NRG FTX;REPORTABLE SENSITIVITY REPORTED 10/18/16 17:15 NRG Bacterial susceptibility panel - 10/17/16 23:20 Gentamicin susceptibility test by minimum inhibitory concentration > = NRG Trimethoprim/sulfamethoxazole susceptibility test by minimum inhibitoryconcentration <= NRG Ampicillin susceptibility test by minimum inhibitory concentration > = NRG Tobramycin susceptibility test by minimum inhibitory concentration 8 NRG Cefazolin susceptibility test by minimum inhibitory concentration < = NRG Ceftriaxone susceptibility test by minimum inhibitory concentration <= NRG Ampicillin/sulbactam susceptibility test by minimum inhibitory concentration 16 NRG Piperacillin/tazobactam susceptibility test by minimum inhibitory concentration <= NRG Ciprofloxacin susceptibility test by minimum inhibitory concentration >= NRG Meropenem susceptibility test by minimum inhibitory concentration < = NRG Nitrofurantoin susceptibility test by minimum inhibitory concentration <= NRG Aztreonam susceptibility test by minimum inhibitory concentration < = NRG Extended spectrum beta lactamase (ESBL) producing bacteria susceptibility test by minimum inhibitory concentration - NRG Amikacin susceptibility test by minimum inhibitory concentration S NRG Serum or plasma troponin i.cardiac measurement (mass/volume) - 10/18/16 00:18 Serum or plasma troponin i.cardiac measurement (mass/volume) < ng/ mL <0.30 Complete urinalysis with reflex to culture - 12/23/16 22:16 Urine color determination YELLOW NRG Urine clarity determination CLEAR NRG Urine pH measurement by test strip 6 5-9 Specific gravity of urine by test strip 1.010 1.016- 1.022 Urine protein assay by test strip, semi-quantitative [...] culture YES NRG Bacterial urine culture - 12/23/16 22:16 Bacterial urine culture [id number] NRG COLONY COUNT >100,000/ML NRG FTX;REPORTABLE SENSITIVITY REPORTED 12/25/16 7:30 NRG FREE TEXT ENTRY 2 PLUS, NRG FREE TEXT ENTRY 3 LACTOBACILLUS 10-100,000/ML NRG Bacterial susceptibility panel - 12/23/16 22:16 Gentamicin susceptibility test by minimum inhibitory concentration > = NRG Trimethoprim/sulfamethoxazole susceptibility test by minimum inhibitoryconcentration <= NRG Ampicillin susceptibility test by minimum inhibitory concentration > = NRG Tobramycin susceptibility test by minimum inhibitory concentration 8 NRG Cefazolin susceptibility test by minimum inhibitory concentration < = NRG Ceftriaxone susceptibility test by minimum inhibitory concentration <= NRG Ampicillin/sulbactam susceptibility test by minimum inhibitory concentration 16 NRG Piperacillin/tazobactam susceptibility test by minimum inhibitory concentration <= NRG Ciprofloxacin susceptibility test by minimum inhibitory concentration >= NRG Meropenem susceptibility test by minimum inhibitory concentration < = NRG Nitrofurantoin susceptibility test by minimum inhibitory concentration <= NRG Aztreonam susceptibility test by minimum inhibitory concentration < = NRG Extended spectrum beta lactamase (ESBL) producing bacteria susceptibility test by minimum inhibitory concentration - NRG Complete blood count (CBC) with automated white blood cell (WBC) differential - 12/23/16 22:26 Blood leukocytes automated count (number/volume) 11.8 10*3/uL 4.3-11.0 Blood erythrocytes automated count (number/volume) 4.47 10*6/uL 4.35-5.85 Venous blood hemoglobin measurement (mass/volume) 13.9 g/dL 11.5-16.0 Blood hematocrit (volume fraction) 43 % 35-52 Automated erythrocyte mean corpuscular volume 97 [foz_us] 80-99 Automated erythrocyte mean corpuscular hemoglobin (mass per erythrocyte) 31 pg 25-34 Automated erythrocyte mean corpuscular hemoglobin concentration measurement ( mass/volume) 32 g/dL 32-36 Automated erythrocyte distribution width ratio 13.9 % 10.0-14.5 Automated blood platelet count (count/volume) 271 10*3/uL 130-400 Automated blood platelet mean volume measurement 10.1 [foz_us] 7.4-10.4 Automated blood neutrophils/100 leukocytes 48 % 42-75 Automated blood lymphocytes/100 leukocytes 40 % 12-44 Blood monocytes/100 leukocytes 8 % 0-12 Automated blood eosinophils/100 leukocytes 3 % 0-10 Automated blood basophils/100 leukocytes 0 % 0-10 Blood neutrophils automated count (number/volume) 5.7 10*3 1.8-7.8 Blood lymphocytes automated count (number/volume) 4.7 10*3 1.0-4.0 Blood monocytes automated count (number/volume) 1.0 10*3 0.0-1.0 Automated eosinophil count 0.4 10*3/uL 0.0-0.3 Automated blood basophil count (count/volume) 0.0 10*3/uL 0.0-0.1 Comprehensive metabolic panel - 12/23/16 22:26 Serum or plasma sodium measurement (moles/volume) 140 mmol/L 135-145 Serum or plasma potassium measurement (moles/volume) 4.4 mmol/L 3.6-5.0 Serum or plasma chloride measurement (moles/volume) 103 mmol/L 98-107 Carbon dioxide 25 mmol/L 21-32 Serum or plasma anion gap determination (moles/volume) 12 mmol/L 5-14 Serum or plasma urea nitrogen measurement (mass/volume) 11 mg/dL 7-18 Serum or plasma creatinine measurement (mass/volume) 0.46 mg/dL 0.60-1.30 Serum or plasma urea nitrogen/creatinine mass ratio 24 NRG Serum or plasma creatinine measurement with calculation of estimated glomerular filtration rate > NRG Serum or plasma glucose measurement (mass/volume) 98 mg/dL 70-105 Serum or plasma calcium measurement (mass/volume) 9.9 mg/dL 8.5-10.1 Serum or plasma total bilirubin measurement (mass/volume) 0.4 mg/dL 0.1-1.0 Serum or plasma alkaline phosphatase measurement (enzymatic activity/volume) 60 U/L 40-136 Serum or plasma aspartate aminotransferase measurement (enzymatic activity/ volume) 35 U/L 5-34 Serum or plasma alanine aminotransferase measurement (enzymatic activity/volume ) 32 U/L 0-55 Serum or plasma protein measurement (mass/volume) 7.7 g/dL 6.4-8.2 Serum or plasma albumin measurement (mass/volume) 4.1 g/dL 3.2-4.5 Serum or plasma C reactive protein measurement (mass/volume) - 12/23/16 22:26 Serum or plasma C reactive protein measurement (mass/volume) 0.77 mg /dL 0.00-0.50 Erythrocyte sedimentation rate by westergren method - 12/23/16 22:26 Erythrocyte sedimentation rate by westergren method 27 mm 0-30 Complete urinalysis with reflex to culture - 01/12/17 18:05 Urine color determination YELLOW NRG Urine clarity determination SLIGHTLY CLOUDY NRG Urine pH measurement by test strip 7 5-9 Specific gravity of urine by test strip 1.005 1.016- 1.022 Urine protein assay by test strip, semi-quantitative NEGATIVE NEGATIVE Urine glucose detection by automated test strip NEGATIVE NEGATIVE Erythrocytes detection in urine sediment by light microscopy 2+ NEGATIVE Urine ketones detection by automated test [...] culture YES NRG Bacterial urine culture - 01/12/17 18:05 Bacterial urine culture [id number] NRG COLONY COUNT >100,000/ML NRG FTX;REPORTABLE SENSITIVITY REPORTED 01/14/17 10:15 NRG FREE TEXT ENTRY 2 PLUS, NRG FREE TEXT ENTRY 3 LACTOBACILLUS 10-100,000/ML NRG Bacterial susceptibility panel - 01/12/17 18:05 Gentamicin susceptibility test by minimum inhibitory concentration > = NRG Trimethoprim/sulfamethoxazole susceptibility test by minimum inhibitoryconcentration <= NRG Ampicillin susceptibility test by minimum inhibitory concentration > = NRG Tobramycin susceptibility test by minimum inhibitory concentration 2 NRG Cefazolin susceptibility test by minimum inhibitory concentration < = NRG Ceftriaxone susceptibility test by minimum inhibitory concentration <= NRG Ampicillin/sulbactam susceptibility test by minimum inhibitory concentration 16 NRG Piperacillin/tazobactam susceptibility test by minimum inhibitory concentration <= NRG Ciprofloxacin susceptibility test by minimum inhibitory concentration >= NRG Meropenem susceptibility test by minimum inhibitory concentration < = NRG Nitrofurantoin susceptibility test by minimum inhibitory concentration <= NRG Aztreonam susceptibility test by minimum inhibitory concentration < = NRG Extended spectrum beta lactamase (ESBL) producing bacteria susceptibility test by minimum inhibitory concentration - NRG Complete blood count (CBC) with automated white blood cell (WBC) differential - 04/17/17 18:30 Blood leukocytes automated count (number/volume) 11.3 10*3/uL 4.3-11.0 Blood erythrocytes automated count (number/volume) 4.61 10*6/uL 4.35-5.85 Venous blood hemoglobin measurement (mass/volume) 14.2 g/dL 11.5-16.0 Blood hematocrit (volume fraction) 40 % 35-52 Automated erythrocyte mean corpuscular volume 87 [foz_us] 80-99 Automated erythrocyte mean corpuscular hemoglobin (mass per erythrocyte) 31 pg 25-34 Automated erythrocyte mean corpuscular hemoglobin concentration measurement ( mass/volume) 35 g/dL 32-36 Automated erythrocyte distribution width ratio 13.7 % 10.0-14.5 Automated blood platelet count (count/volume) 260 10*3/uL 130-400 Automated blood platelet mean volume measurement 9.6 [foz_us] 7.4-10.4 Automated blood neutrophils/100 leukocytes 54 % 42-75 Automated blood lymphocytes/100 leukocytes 36 % 12-44 Blood monocytes/100 leukocytes 8 % 0-12 Automated blood eosinophils/100 leukocytes 2 % 0-10 Automated blood basophils/100 leukocytes 0 % 0-10 Blood neutrophils automated count (number/volume) 6.1 10*3 1.8-7.8 Blood lymphocytes automated count (number/volume) 4.0 10*3 1.0-4.0 Blood monocytes automated count (number/volume) 0.9 10*3 0.0-1.0 Automated eosinophil count 0.2 10*3/uL 0.0-0.3 Automated blood basophil count (count/volume) 0.0 10*3/uL 0.0-0.1 Comprehensive metabolic panel - 04/17/17 18:30 Serum or plasma sodium measurement (moles/volume) 141 mmol/L 135-145 Serum or plasma potassium measurement (moles/volume) 3.9 mmol/L 3.6-5.0 Serum or plasma chloride measurement (moles/volume) 101 mmol/L 98-107 Carbon dioxide 24 mmol/L 21-32 Serum or plasma anion gap determination (moles/volume) 16 mmol/L 5-14 Serum or plasma urea nitrogen measurement (mass/volume) 7 mg/dL 7-18 Serum or plasma creatinine measurement (mass/volume) 0.42 mg/dL 0.60-1.30 Serum or plasma urea nitrogen/creatinine mass ratio 17 NRG Serum or plasma creatinine measurement with calculation of estimated glomerular filtration rate > NRG Serum or plasma glucose measurement (mass/volume) 93 mg/dL 70-105 Serum or plasma calcium measurement (mass/volume) 9.7 mg/dL 8.5-10.1 Serum or plasma total bilirubin measurement (mass/volume) 0.4 mg/dL 0.1-1.0 Serum or plasma alkaline phosphatase measurement (enzymatic activity/volume) 78 U/L 40-136 Serum or plasma aspartate aminotransferase measurement (enzymatic activity/ volume) 45 U/L 5-34 Serum or plasma alanine aminotransferase measurement (enzymatic activity/volume ) 40 U/L 0-55 Serum or plasma protein measurement (mass/volume) 8.0 g/dL 6.4-8.2 Serum or plasma albumin measurement (mass/volume) 4.2 g/dL 3.2-4.5 Magnesium - 04/17/17 18:30 Magnesium 2.1 mg/dL 1.8-2.4 Serum or plasma C reactive protein measurement (mass/volume) - 04/17/17 18:30 Serum or plasma C reactive protein measurement (mass/volume) 3.20 mg /dL 0.00-0.50 Complete urinalysis with reflex to culture - 04/17/17 20:16 Urine color determination YELLOW NRG Urine clarity determination VERY CLOUDY NRG Urine pH measurement by test strip 5 5-9 Specific gravity of urine by test strip 1.020 1.016- 1.022 Urine protein assay by test strip, semi-quantitative [...] urinalysis with reflex to culture YES NRG Encounters ACCT No. Visit Date/Time Discharge Status Pt. Type Provider Facility Loc./Unit Complaint [id number] 07/26/2014 16:57:00 07/26/2014 23:59:59 CLS Outpatient DWAINE BENITO APRN [id number] 07/19/2014 17:04:00 07/19/2014 23:59:59 CLS Outpatient DWAINE BENITO APRN [id number] 07/05/2014 16:59:00 07/05/2014 23:59:59 CLS Outpatient DWAINE BENITO APRN [id number] 06/21/2014 16:55:00 06/21/2014 23:59:59 CLS Outpatient DWAINE BENITO APRN [id number] 05/24/2014 16:53:00 05/24/2014 23:59:59 CLS Outpatient DWAINE BENITO APRN [id number] 05/03/2014 18:27:00 05/03/2014 23:59:59 CLS Outpatient DWAINE BENITO APRN [id number] 04/26/2014 17:01:00 04/26/2014 23:59:59 CLS Outpatient DWAINE BENITO APRN [id number] 04/12/2014 15:47:00 04/12/2014 23:59:59 CLS Outpatient DWAINE BENITO APRN [id number] 03/29/2014 17:08:00 03/29/2014 23:59:59 CLS Outpatient DWAINE BENITO APRN [id number] 03/24/2014 15:18:00 03/24/2014 23:59:59 CLS Outpatient DWAINE BENITO APRN [id number] 03/15/2014 16:56:00 03/15/2014 23:59:59 CLS Outpatient DEE GUILLAUME GILBERTO Anjali [id number] 03/03/2014 15:57:00 03/03/2014 23:59:59 CLS Outpatient DWAINE BENITO APRN [id number] 02/25/2014 14:23:00 02/25/2014 23:59:59 CLS Outpatient DWAINE BENITO APRN [id number] 02/15/2014 17:12:00 02/15/2014 23:59:59 CLS Outpatient DWAINE BENITO APRN [id number] 02/01/2014 16:57:00 02/01/2014 23:59:59 CLS Outpatient DWAINE BENITO APRN [id number] 01/18/2014 16:59:00 01/18/2014 23:59:59 CLS Outpatient GILBERTO PRICE DO [id number] 01/16/2014 14:37:00 01/16/2014 23:59:59 CLS Outpatient DWAINE BENITO APRN [id number] 01/04/2014 16:56:00 01/04/2014 23:59:59 CLS Outpatient DWAINE BENITO APRN [id number] 01/04/2014 16:56:00 01/04/2014 23:59:59 CLS Outpatient NEIDA TALBOT MD [id number] 12/22/2013 14:42:00 12/22/2013 23:59:59 CLS Outpatient DWAINE BENITO APRN [id number] 12/21/2013 16:52:00 12/21/2013 23:59:59 CLS Outpatient DWAINE BENITO APRN [id number] 12/16/2013 15:18:00 12/16/2013 23:59:59 CLS Outpatient DWAINE BENITO APRN [id number] 12/07/2013 16:35:00 12/07/2013 23:59:59 CLS Outpatient DWAINE BENITO APRN [id number] 12/02/2013 15:16:00 12/02/2013 23:59:59 CLS Outpatient DWAINE BENITO APRN [id number] 11/09/2013 16:52:00 11/09/2013 23:59:59 CLS Outpatient NEIDA TALBOT MD [id number] 11/04/2013 14:43:00 11/04/2013 23:59:59 CLS Outpatient DWAINE BENITO APRN [id number] 10/26/2013 17:00:00 10/26/2013 23:59:59 CLS Outpatient DWAINE BENITO APRN [id number] 10/12/2013 17:02:00 10/12/2013 23:59:59 CLS Outpatient DWAINE BENITO APRN [id number] 09/28/2013 16:56:00 09/28/2013 23:59:59 CLS Outpatient DWAINE BENITO APRN [id number] 09/14/2013 16:34:00 09/14/2013 23:59:59 CLS Outpatient DWAINE BENITO APRN [id number] 08/31/2013 16:23:00 08/31/2013 23:59:59 CLS Outpatient DWAINE BENITO APRN [id number] 08/16/2013 11:31:00 08/16/2013 23:59:59 CLS Outpatient DWAINE BENITO APRN [id number] 08/03/2013 16:56:00 08/03/2013 23:59:59 CLS Outpatient NEIDA TALBOT MD [id number] 07/25/2013 15:43:00 07/25/2013 23:59:59 CLS Outpatient DWAINE BENITO APRN [id number] 07/20/2013 16:34:00 07/20/2013 23:59:59 CLS Outpatient DWAINE BENITO APRN [id number] 07/12/2013 16:40:00 07/12/2013 23:59:59 CLS Outpatient DWAINE BENITO APRN [id number] 07/06/2013 16:45:00 07/06/2013 23:59:59 CLS Outpatient DWAINE BENITO APRN [id number] 06/28/2013 11:26:00 06/28/2013 23:59:59 CLS Outpatient DWAINE BENITO APRN [id number] 06/27/2013 14:41:00 06/27/2013 23:59:59 CLS Outpatient DWAINE BENITO APRN [id number] 06/22/2013 16:40:00 06/22/2013 23:59:59 CLS Outpatient DWAINE BENITO APRN [id number] 06/22/2013 16:40:00 06/22/2013 23:59:59 CLS Outpatient DWAINE BENITO APRN [id number] 06/20/2013 09:07:00 06/20/2013 23:59:59 CLS Outpatient DWAINE BENITO APRN [id number] 06/14/2013 15:48:00 06/14/2013 23:59:59 CLS Outpatient YE ANDRADE MD [id number] 06/08/2013 16:29:00 06/08/2013 23:59:59 CLS Outpatient DWAIEN BENITO APRN [id number] 05/25/2013 16:54:00 05/25/2013 23:59:59 CLS Outpatient DWAINE BENITO APRN [id number] 05/23/2013 14:07:00 05/23/2013 23:59:59 CLS Outpatient DWAINE BENITO APRN [id number] 05/11/2013 17:01:00 05/11/2013 23:59:59 CLS Outpatient DWAINE BENITO APRN [id number] 04/27/2013 17:06:00 04/27/2013 23:59:59 CLS Outpatient DWAINE BENITO APRN [id number] 04/20/2013 08:39:00 04/20/2013 23:59:59 CLS Outpatient DWAINE BENITO APRN [id number] 04/12/2013 11:34:00 04/12/2013 23:59:59 CLS Outpatient DWAINE BENITO APRN [id number] 03/30/2013 16:43:00 03/30/2013 23:59:59 CLS Outpatient DWAINE BENITO APRN [id number] 03/16/2013 16:31:00 03/16/2013 23:59:59 CLS Outpatient NEIDA TALBOT MD [id number] 03/11/2013 09:19:00 03/11/2013 23:59:59 CLS Outpatient DWAINE BENITO APRN [id number] 03/02/2013 16:47:00 03/02/2013 23:59:59 CLS Outpatient NEIDA TALBOT MD [id number] 02/16/2013 16:40:00 02/16/2013 23:59:59 CLS Outpatient DWAINE BENITO APRN [id number] 02/02/2013 17:02:00 02/02/2013 23:59:59 CLS Outpatient NEIDA TALBOT MD [id number] 01/19/2013 16:46:00 01/19/2013 23:59:59 CLS Outpatient DWAINE BENITO APRN [id number] 01/05/2013 16:36:00 01/05/2013 23:59:59 CLS Outpatient DWAINE BENIOT APRN [id number] 07/14/2012 16:52:00 07/14/2012 23:59:59 CLS Outpatient DWAINE BENITO APRN [id number] 06/30/2012 16:49:00 06/30/2012 23:59:59 CLS Outpatient [id number] 06/16/2012 17:03:00 06/16/2012 23:59:59 CLS Outpatient [id number] 06/02/2012 16:24:00 06/02/2012 23:59:59 CLS Outpatient DWAINE BENITO APRN [id number] 05/19/2012 14:49:00 05/19/2012 23:59:59 CLS Outpatient [id number] 05/05/2012 16:58:00 05/05/2012 23:59:59 CLS Outpatient [id number] 04/21/2012 17:06:00 04/21/2012 23:59:59 CLS Outpatient DWAINE BENITO APRN [id number] 04/15/2012 08:42:00 04/15/2012 23:59:59 CLS Outpatient GILBERTO PRICE DO [id number] 04/07/2012 17:05:00 04/07/2012 23:59:59 CLS Outpatient [id number] 03/31/2012 16:28:00 03/31/2012 23:59:59 CLS Outpatient NEIDA TALBOT MD [id number] 03/24/2012 17:13:00 03/24/2012 23:59:59 CLS Outpatient DWAINE BENITO APRN [id number] 02/11/2012 16:58:00 02/11/2012 23:59:59 CLS Outpatient DWAINE BENITO APRN [id number] 11/23/2013 16:48:00 Document Registration [id number] 12/15/2012 16:50:00 Document Registration [id number] 12/01/2012 16:44:00 Document Registration [id number] 10/06/2012 16:58:00 Document Registration [id number] 09/30/2012 16:25:00 Document Registration [id number] 09/22/2012 16:17:00 Document Registration [id number] 09/13/2012 17:44:00 Document Registration [id number] 09/08/2012 16:49:00 Document Registration [id number] 08/11/2012 14:50:00 Document Registration [id number] 07/28/2012 14:23:00 Document Registration [id number] 07/26/2012 08:56:00 Document Registration [id number] 07/23/2012 15:29:00 Document Registration [id number] 01/12/2017 16:14:00 01/12/2017 18:53:00 DIS Emergency DINAH CONTEH DO [facility] ER UTI/RASH/DIARRHEA [id number] 12/24/2016 08:06:00 12/24/2016 23:59:59 CLS Preadmit SANDOVAL BUSTAMANTE MD [facility] RAD HEMATURIA [id number] 12/24/2016 00:22:00 12/24/2016 23:59:59 CLS Preadmit 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 RECURRENT RESISTANT UTI [id number] 12/23/2016 21:42:00 12/24/2016 02:32:00 DIS Emergency MATTHEW MORRISON, ALYSIA Rushing [facility] ER RT SIDED ABDOMINAL PAIN [id number] 09/30/2016 15:53:00 12/23/2016 00:01:00 DIS Outpatient DWAINE BENITOP [facility] RECURRENT RESISTANT UTI [id number] 10/17/2016 21:54:00 10/18/2016 01:50:00 DIS Emergency BEST MCKEE MD [facility] ER CHEST PAINS [id number] 09/21/2016 18:50:00 09/21/2016 21:35:00 DIS Emergency SHIRLEY KIRKPATRICK MD [facility] ER UTI SYMPTOMS [id number] 05/16/2016 19:10:00 05/20/2016 13:17:00 DIS Inpatient BING MORRISON, HONG Alba [facility] 4TH CONSTIPATION [id number] 05/16/2016 18:21:00 05/16/2016 18:21:00 CAN Preadmit SHIRLEY KIRKPATRICK MD [facility] ER CONSTIPATION [id number] 05/14/2016 15:44:00 05/14/2016 18:51:00 DIS Emergency SHIRLEY KIRKPATRICK MD [facility] ER CONSTIPATION [id number] 05/05/2016 00:10:00 05/05/2016 23:59:59 CLS Preadmit JOVAN CASON MD [facility] UTI [id number] 02/08/2016 15:15:00 05/04/2016 00:01:00 DIS Outpatient JOVAN CASON MD [facility] UTI [id number] 04/26/2016 19:13:00 04/26/2016 22:17:00 DIS Emergency ALYSIA CASTRO MD [facility] ER CATHETER ISSUES, NOT FLOWING [id number] 01/30/2016 15:32:00 01/30/2016 17:32:00 DIS Emergency MAIKEL ZHANG MD [facility] ER UTI [id number] 07/31/2015 17:03:00 07/31/2015 18:35:00 DIS Emergency HANLEY ADALID GUILLAUME [facility] ER [id number] 07/19/2015 01:38:00 07/19/2015 03:06:00 DIS Emergency SHIRLEY KIRKPATRICK MD [facility] ER [id number] 05/29/2015 17:47:00 05/29/2015 19:17:00 DIS Emergency WERO DODINAH K [facility] ER [id number] 08/22/2014 13:25:00 08/22/2014 15:11:00 DIS Emergency MATTHEW MORRISON, ALYSIA Rushing [facility] ER [id number] 03/01/2014 20:13:00 03/02/2014 19:45:00 DIS Inpatient PRICE GILBERTO GUILLAUME Anjali [facility] CSD [id number] 02/27/2014 11:35:00 02/27/2014 16:27:00 DIS Emergency WERO DODINAH [facility] ER [id number] 11/22/2013 16:34:00 11/22/2013 23:59:59 CLS Outpatient DWAINE BENITO [facility] RAD [id number] 10/20/2013 16:05:00 10/20/2013 23:59:59 CLS Outpatient APOLLO DAVIS MD [facility] RAD [id number] 08/28/2013 14:46:00 08/28/2013 15:40:00 DIS Emergency HONG SMART MD [facility] ER [id number] 12/10/2012 14:49:00 12/10/2012 23:59:59 CLS Outpatient YE ANDRADE MD [facility] RAD [id number] 04/17/2017 18:38:00 Document Registration [id number] 08/22/2014 14:35:00 Document Registration [id number] 03/07/2012 00:00:00 Document Registration [id number] 02/04/2012 00:00:00 Document Registration [id number] 12/29/2011 14:30:00 Document Registration [id number] 12/13/2011 11:08:00 Document Registration [id number] 12/05/2011 14:44:00 Document Registration [id number] 09/13/2011 13:30:00 Document Registration [id number] 09/03/2011 20:35:00 Document Registration [id number] 06/18/2011 20:18:00 Document Registration [id number] 04/01/2011 13:51:00 Document Registration [id number] 12/24/2010 20:32:00 Document Registration [id number] 12/10/2010 20:25:00 Document Registration [id number] 11/25/2010 21:35:00 Document Registration [id number] 11/12/2010 21:05:00 Document Registration [id number] 10/23/2010 19:59:00 Document Registration [id number] 10/07/2010 00:22:00 Document Registration [id number] 09/30/2010 20:46:00 Document Registration [id number] 09/27/2010 17:03:00 Document Registration [id number] 09/16/2010 20:43:00 Document Registration [id number] 08/09/2010 13:21:00 Document Registration [id number] 06/03/2010 19:21:00 Document Registration [id number] 05/17/2010 15:29:00 Document Registration [id number] 05/06/2010 19:00:00 Document Registration [id number] 02/04/2010 17:15:00 Document Registration [id number] 01/08/2010 15:39:00 Document Registration [id number] 12/17/2009 01:35:00 Document Registration [id number] 11/29/2009 13:35:00 Document Registration [id number] 11/09/2009 14:00:00 Document Registration [id number] 11/08/2009 09:17:00 Document Registration [id number] 14:48:00 Document Registration [id number] 08/10/2009 15:30:00 Document Registration [id number] 06/26/2009 14:24:00 Document Registration [id number] 06/07/2009 15:19:00 Document Registration [id number] 05/07/2009 18:00:00 Document Registration [id number] 03/06/2009 14:46:00 Document Registration [id number] 02/08/2009 17:00:00 Document Registration [id number] 01/19/2009 16:38:00 Document Registration [id number] 01/16/2009 13:11:00 Document Registration [id number] 01/13/2009 14:36:00 Document Registration [id number] 11/07/2008 15:18:00 Document Registration [id number] 10/31/2008 13:51:00 Document Registration [id number] 10/16/2008 11:32:00 Document Registration
[2017-04-18] MEDS ORDERED: INFLUENZA TRIvalent 2017-2018 0.5 ML/45 MCG SYR IM ONE (07:30)
[2017-04-18 08:10] VITALS: BP 102/54
[2017-04-18] MEDS: CIPROFLOXACIN 500 MG (CIPRO) TABLET PO SCH ×2 (09:12→21:00)
[2017-04-18] MEDS: BISACODYL 5 MG (DULCOLAX) TABLET PO SCH ×3 (09:12→21:00)
[2017-04-18] MEDS ORDERED: OXYC-465 PO (09:25)
[2017-04-18] MEDS ORDERED: METF500T4 PO (09:52)
[2017-04-18] MEDS ORDERED: ALPRAZolam 0.5 MG (XANAX) TAB PO PRN (11:15)
--- NOTE | 2017-04-18 11:29 | History & Physicial (CHS) ---
HPI History of Present Illness: 56 yo female who is wheelchair bound secondary to Jnqqceo-Fljav-Ripor and on chronic opiate therapy presented to ER with complaint of now bowel movement for 17 days. She has been taking miralax at home the last few days without benefit. She is nauseated but has no vomiting. She denies fever, but has had cold symptoms with congestion, cough and loss of voice over last day and a half. She has an indwelling urinary catheter which was changed before last and is typically changed every 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 She has had problems with recurrent urinary tract infections in the past. Chart review from clinic notes that she had called on 04/14 with original concern and used Fleet's enema x 1 without results, plan was for repeat the following day, but she reported Dr. Richard recommended mineral oil, which she tried without relief x [address] scan was obtained which showed moderate stool without obstruction, she was to continue mineral oil enemas, senokot, miralax daily and go to ER if no success. Source: patient Date seen by provider: Apr 18, 2017 Time Seen by Provider: 10:45 Attending Physician Jovan Cason MD PCP Eloise Byers DO Consult Date of Admission Apr 17, 2017 at 8:02 pm Home Medications Home Medications Reviewed patient Home Medication Reconciliation Form Allergies Coded Allergies: Sulfa (Sulfonamide Antibiotics) (Unverified Allergy, Mild, 07/29/08) Iodinated Contrast- Oral and IV Dye (Verified Allergy, Unknown, 07/30/08) latex (Verified Allergy, Unknown, 07/30/08) povidone-iodine (Unverified Allergy, Unknown, 08/28/13) soap (Unverified Allergy, Unknown, 08/28/13) Uncoded Allergies: CONTRAST DYE (Allergy, Mild, 07/29/08) EES (Allergy, Mild, 07/29/08) IMX-Lteusk-Allzjx Hx Patient Social History Alcohol Use: Occasionally Uses Recreational Drug Use: No Smoking Status: Current Someday Smoker Type Used: Cigarettes 2nd Hand Smoke Exposure: Yes Recent Foreign Travel: No Contact w/other who traveled: No Recent Hopitalizations: No Recent Infectious Disease Expo: No Physical Abuse Screen: No Sexual Abuse: No Immunizations Up To Date Tetanus Booster (TDap): Unknown Date of Pneumonia Vaccine: Feb 28, 2011 Date of Influenza Vaccine: Mar 02, 2016 Past Medical History Past Medical History 1. Xsdvlkv-Jfstq-Attaq 2. Indwelling Urinary Catheter- with changes at the clinic 3. Tobaccoism 4. History of Kidney Stone 5. Frequent Urinary Tract Infections 6. Wheelchair bound 7. Diabetes Mellitus 8. Chronic Back Pain 9. 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 Colitis Past Surgical History 1. Cholecystectomy 2. Genital Wound Debridement 2008 3. Kidney Stone basket with stent 2008 [facility] 4. Lithotripsy- 2008 with [facility] 5. Rt. Leg Surgery 1966 6. Muscle Bx 1968 7. Lt and Rt. Ankle Closed Reduction, Rt. Humerus Rt. Femur 99 8. Left Femur Fx, Right Tibia Fibula, 1981 9. Hwang Rods 1975 Family Medical History Family History: FH: breast cancer 19 MOTHER, Onset:Unknown FH: pneumonia 19 FATHER, Onset:60 years & older Gout 19 FATHER, Onset:Unknown Hypertension 19 FATHER, Onset:Unknown Review of Systems ([facility]) Constitutional: No chills, No fever EENTM: nose congestion Respiratory: cough Cardiovascular: No chest pain Gastrointestinal: see HPI Genitourinary: no symptoms reported Musculoskeletal: back pain, muscle pain Skin: see HPI Psychiatric/Neurological: No Symptoms Reported Reviewed Test Results Reviewed Test Results Lab Laboratory Tests Test 04/17/17 18:30 04/17/17 20:16 Range/Units White Blood Count 11.3 H 4.3-11.0 10^3/uL Red Blood Count 4.61 4.35-5.85 10^6/uL Hemoglobin 14.2 11.5-16.0 G/DL Hematocrit 40 35-52 % Mean Corpuscular Volume 87 80-99 FL Mean Corpuscular Hemoglobin 31 25-34 PG Mean Corpuscular Hemoglobin Concent 35 32-36 G/DL Red Cell Distribution Width 13.7 10.0-14.5 % Platelet Count 260 130-400 10^3/uL Mean Platelet Volume 9.6 7.4-10.4 FL Neutrophils (%) (Auto) 54 42-75 % Lymphocytes (%) (Auto) 36 12-44 % Monocytes (%) (Auto) 8 0-12 % Eosinophils (%) (Auto) 2 0-10 % Basophils (%) (Auto) 0 0-10 % Neutrophils # (Auto) 6.1 1.8-7.8 X 10^3 Lymphocytes # (Auto) 4.0 1.0-4.0 X 10^3 Monocytes # (Auto) 0.9 0.0-1.0 X 10^3 Eosinophils # (Auto) 0.2 0.0-0.3 10^3/uL Basophils # (Auto) 0.0 0.0-0.1 10^3/uL Sodium Level 141 135-145 MMOL/L Potassium Level 3.9 3.6-5.0 MMOL/L Chloride Level 101 98-107 MMOL/L Carbon Dioxide Level 24 21-32 MMOL/L Anion Gap 16 H 5-14 MMOL/L Blood Urea Nitrogen 7 7-18 MG/DL Creatinine 0.42 L 0.60-1.30 MG/DL Estimat Glomerular Filtration Rate > 60 BUN/Creatinine Ratio 17 Glucose Level 93 70-105 MG/DL Calcium Level 9.7 8.5-10.1 MG/DL Magnesium Level 2.1 1.8-2.4 MG/DL Total Bilirubin 0.4 0.1-1.0 MG/DL Aspartate Amino Transf (AST/SGOT) 45 H 5-34 U/L Alanine Aminotransferase (ALT/SGPT) 40 0-55 U/L Alkaline Phosphatase 78 40-136 U/L C-Reactive Protein High Sensitivity 3.20 H 0.00-0.50 MG/DL Total Protein 8.0 6.4-8.2 GM/DL Albumin 4.2 3.2-4.5 GM/DL Urine Color YELLOW Urine Clarity VERY CLOUDY H Urine pH 5 5-9 Urine Specific [place] 1.020 1.016-1.022 Urine Protein 1+ H NEGATIVE Urine Glucose (UA) NEGATIVE NEGATIVE Urine Ketones NEGATIVE NEGATIVE Urine Nitrite POSITIVE H NEGATIVE Urine Bilirubin NEGATIVE NEGATIVE Urine Urobilinogen NORMAL NORMAL MG/DL Urine Leukocyte Esterase 3+ H NEGATIVE Urine RBC (Auto) 1+ H NEGATIVE Urine RBC 0-2 /HPF Urine WBC 10-25 H /HPF Urine Squamous Epithelial Cells 5-10 /HPF Urine Crystals NONE /LPF Urine Bacteria LARGE H /HPF Urine Casts NONE /LPF Urine Mucus NEGATIVE /LPF Urine Culture Indicated YES Radiology Abd x-ray 04/17: IMPRESSION: Nonspecific bowel gas pattern. Stool burden appears similar to yesterday's CT. Physical Exam-([facility]) Physical Exam Vital Signs VS - Last 72 Hours, by Label 04/17/17 04/17/17 04/17/17 04/17/17 18:02 21:06 21:10 23:59 Temp 98.7 98.4 98.4 98.1 Pulse 97 77 77 89 Resp 18 18 18 18 B/P (MAP) 149/71 (97) 125/60 (81) 116/57 (76) Pulse Ox 96 99 99 97 O2 Delivery Room Air Room Air Room Air Room Air 04/18/17 08:10 Temp 97.4 Pulse 60 Resp 16 B/P (MAP) 102/54 (70) Pulse Ox 98 O2 Delivery Room Air Capillary Refill : Less Than 3 Seconds General Appearance: WD/WN, no apparent distress Respiratory: lungs clear, normal breath sounds Cardiovascular: regular rate, rhythm, no murmur Gastrointestinal: non tender, soft, abnormal bowel sounds (hypoactive) Extremities: no pedal edema Neurologic/Psychiatric: alert, normal mood/affect Skin: normal color, warm/dry Clinical Quality Measures DVT/VTE Risk/Contraindication: Risk Factor Score Per Nursin RFS Level Per Nursing on Admit: 4+=Very High Assessment/Plan Assessment/Plan (1) Constipation Status: Acute Assessment & Plan: Failed outpatient treatment with miralax daily, senokot and Fleet's enema and mineral oil enema. Xray without obstruction. Is on chronic opiate therapy. Soap suds enema overnight x 3 with small amount of stool, will try methylnatrexone today given chronic opiate therapy, increase miralax to TID Qualifiers: Qualified Codes: K59.03 - Drug induced constipation (2) Cough Status: Acute Assessment & Plan: Symptoms and vitals/labs consistent with viral upper respiratory infection, symptomatic treatment (3) Pressure ulcer of right ischium Status: Chronic Assessment & Plan: Air mattress Will increase dressing changes to daily given frequent enemas, etc during hospitalization- clean with saline, cover with Aquacell with silver and medipore (4) Diabetes mellitus type 2, controlled, without complications Status: Chronic Assessment & Plan: Diabetic diet Resume home metformin (5) Chronic pain Status: Chronic Assessment & Plan: Continue home Percocet Qualifiers: Qualified Codes: G89.29 - Other chronic pain (6) Chronic indwelling Chowdhury catheter Status: Chronic Assessment & Plan: Not due for change yet, UA/culture concerning for possible infection, however unclear if may be colonization. (7) Urinary tract infection Status: Acute Assessment & Plan: UA/culture concerning for possible infection, however unclear if may be colonization. Started on cipro from ER, will follow up sensitivities. Qualifiers: Qualified Codes: T83.511A - Infection and inflammatory reaction due to indwelling urethral catheter, initial encounter; N39.0 - Urinary tract infection , site not specified (8) DVT prophylaxis Status: Acute Assessment & Plan: Enoxaparin, SCDs JOVAN CASON MD Apr 18, 2017 11:29 am
[2017-04-18] MEDS ORDERED: oxyCODONE/APAP 10/325MG (PERCOCET 10) TABLET PO PRN (11:30)
[2017-04-18] MEDS ORDERED: METHYLNALTREXONE 12 MG/0.6 ML (RELISTOR) VIAL SQ NR (11:30)
[2017-04-18] MEDS: POLYETHYLENE GLYCOL 17 GM (MIRALAX) PACK PO SCH ×2 (12:59→21:00)
[2017-04-18] MEDS ORDERED: PATIENT MAY USE OWN MEDS, ALL MC SCH (14:15)
[2017-04-18 15:47] VITALS: BP 104/55
[2017-04-18] MEDS ORDERED: SALINE NASAL SPRAY (OCEAN) 45 ML BTL PRN (16:15)
[2017-04-18] MEDS ORDERED: metFORMIN 500 MG (GLUCOPHAGE) TAB PO SCH (17:00)
[2017-04-18] MEDS: ENOXAPARIN 40 MG/0.4 ML (LOVENOX) SYR SC SCH (17:42)
[2017-04-18] MEDS: NS IV 1000 ML 1,000 ML IV SCH (17:42)
[2017-04-18] MEDS: metFORMIN 500 MG (GLUCOPHAGE) TAB PO SCH (17:43)
[2017-04-18] MEDS ORDERED: NON-FORMULARY MEDICATION 1 EA EA (Cranberry Conc/Ascorbic Acid (Cranberry Plus Vitamin C S PO SCH (21:00)
[2017-04-18] MEDS ORDERED: POLYETHYLENE GLYCOL 17 GM (MIRALAX) PACK PO SCH (21:00)
[2017-04-18] MEDS ORDERED: PARACASEI B LACTIS PO SCH (21:00)
[2017-04-18] MEDS: LACTOBACILLUS Acidoph/Bulgar (LACTINEX/FLORANEX) TAB PO SCH (21:00)
[2017-04-18] MEDS ORDERED: ACIDOPH PO SCH (21:00)
[2017-04-18] MEDS: oxyCODONE/APAP 10/325MG (PERCOCET 10) TABLET PO PRN (21:02)
[2017-04-18] MEDS: ALPRAZolam 0.5 MG (XANAX) TAB PO PRN (21:03)
[2017-04-19 00:52] VITALS: BP 99/53
[2017-04-19 03:22] VITALS: BP 107/55
[2017-04-19] MEDS ORDERED: MAGNESIUM CITRATE 300 ML BTL PO ONE (06:15)
--- NOTE | 2017-04-19 06:26 | Progress Note (SOAP) ---
Subjective Subjective/Events-last exam Chart review notes 2 bowel movements yesterday, patient reports no bowel movements, but no abdominal pain. Review of Systems Date Seen by Provider: Apr 19, 2017 Time Seen by Provider: 05:59 Objective Exam Last Set of Vital Signs Vital Signs Date Time Temp Pulse Resp B/P (MAP) Pulse Ox O2 Delivery O2 Flow Rate FiO2 04/19/17 03:22 107/55 (72) 04/19/17 00:52 97.2 64 17 96 Room Air Capillary Refill : Less Than 3 Seconds I&O Intake and Output 04/19/17 00:00 Intake Total 2200 ml Output Total 3230 ml Balance -1030 ml Intake Oral 1200 ml IV Total 1000 ml Output Urine Total 3230 ml # Bowel Movements 2 General: Alert, No Acute Distress Lungs: Clear to Auscultation, Normal Air Movement Heart: Regular Rate, No Murmurs Abdomen: Normal Bowel Sounds, No Tenderness Psych/Mental Status: Mental Status NL Results/Procedures Lab Microbiology 04/17/17 Urine Culture - Preliminary, Resulted Escherichia Coli Radiology Abd x-ray 04/17: IMPRESSION: Nonspecific bowel gas pattern. Stool burden appears similar to yesterday's CT. Assessment/Plan Assessment/Plan (1) Constipation Status: Acute Assessment & Plan: Failed outpatient treatment with miralax daily, senokot and Fleet's enema and mineral oil enema. Xray without obstruction. Is on chronic opiate therapy. Soap suds enema overnight x 3 with small amount of stool, will try methylnatrexone today given chronic opiate therapy, increase miralax to TID / methylnatrexone and soap suds enema x 3 repeated with small stool, will give magnesium citrate today, consider milk and molasses enema Qualifiers: Qualified Codes: K59.03 - Drug induced constipation (2) Cough Status: Acute (3) Pressure ulcer of right ischium Status: Chronic Assessment & Plan: Air mattress Will increase dressing changes to daily given frequent enemas, etc during hospitalization- clean with saline, cover with Aquacell with silver and medipore (4) Diabetes mellitus type 2, controlled, without complications Status: Chronic Assessment & Plan: Diabetic diet Resume home metformin (5) Chronic pain Status: Chronic Qualifiers: Qualified Codes: G89.29 - Other chronic pain (6) Chronic indwelling Chowdhury catheter Status: Chronic Assessment & Plan: Not due for change yet, UA/culture concerning for possible infection, however unclear if may be colonization. (7) Urinary tract infection Status: Acute Assessment & Plan: UA/culture concerning for possible infection, however unclear if may be colonization. Started on cipro from ER, will follow up sensitivities. Qualifiers: Qualified Codes: T83.511A - Infection and inflammatory reaction due to indwelling urethral catheter, initial encounter; N39.0 - Urinary tract infection , site not specified (8) DVT prophylaxis Status: Acute Assessment & Plan: Enoxaparin, SCDs Clinical Quality Measures DVT/VTE Risk/Contraindication: Risk Factor Score Per Nursin RFS Level Per Nursing on Admit: 4+=Very High OJVAN CASON MD Apr 19, 2017 6:26 am
[2017-04-19 08:40] VITALS: BP 114/55
[2017-04-19] MEDS ORDERED: NON-FORMULARY MEDICATION 1 EA EA (Multivitamins (Multiple Vitamin) 1 TAB) PO SCH (09:00)
[2017-04-19] MEDS: metFORMIN 500 MG (GLUCOPHAGE) TAB PO SCH ×2 (10:06→17:16)
[2017-04-19] MEDS: BISACODYL 5 MG (DULCOLAX) TABLET PO SCH ×3 (10:06→21:37)
[2017-04-19] MEDS: POLYETHYLENE GLYCOL 17 GM (MIRALAX) PACK PO SCH ×3 (10:07→21:37)
[2017-04-19] MEDS: MULTIVIT W/MINERALS TAB (THERAGRAN M) PO SCH (10:07)
[2017-04-19] MEDS: CIPROFLOXACIN 500 MG (CIPRO) TABLET PO SCH (10:07)
[2017-04-19] MEDS: FLUTICASONE NASAL SPRAY (FLONASE) 16 GM BTL NS SCH (10:08)
[2017-04-19] MEDS: oxyCODONE/APAP 10/325MG (PERCOCET 10) TABLET PO PRN ×2 (10:27→18:53)
[2017-04-19] MEDS: ALPRAZolam 0.5 MG (XANAX) TAB PO PRN ×2 (10:27→21:35)
[2017-04-19] MEDS ORDERED: MULT1TAB69 PO (13:08)
[2017-04-19] MEDS ORDERED: BIOT10004 PO (13:08)
[2017-04-19] MEDS ORDERED: ALPR0.5T7 PO (13:08)
[2017-04-19] MEDS ORDERED: FLUC150T2 PO (13:08)
[2017-04-19] MEDS: NS IV 1000 ML 1,000 ML IV SCH (13:32)
[2017-04-19] MEDS ORDERED: METHYLNALTREXONE 12 MG/0.6 ML (RELISTOR) VIAL SQ NR (14:00)
[2017-04-19] MEDS ORDERED: cefTRIAXone 1 GM (ROCEPHIN) VIAL ONE (14:21)
[2017-04-19] MEDS ORDERED: NS (IVPB) 50 ML ONE (14:22)
[2017-04-19] MEDS: cefTRIAXone INJECTION 1,000 MG in NS (IVPB) 50 ML IV SCH (14:28)
[2017-04-19] MEDS: ENOXAPARIN 40 MG/0.4 ML (LOVENOX) SYR SC SCH (15:55)
[2017-04-19 16:18] VITALS: BP 100/54
[2017-04-19] MEDS: LACTOBACILLUS Acidoph/Bulgar (LACTINEX/FLORANEX) TAB PO SCH (21:37)
[2017-04-20] VITALS: BP 128/66
[2017-04-20] MEDS: ACETAMINOPHEN 325 MG TABLET/CAPLET (TYLENOL) PO PRN ×4 (00:43→15:00)
[2017-04-20] MEDS: oxyCODONE/APAP 10/325MG (PERCOCET 10) TABLET PO PRN ×4 (00:56→13:41)
[2017-04-20 04:00] VITALS: BP 111/54
[2017-04-20 07:17] LABS: BUN/CREATININE RATIO 20; CALCIUM 8.3 MG/DL (8.5-10.1); CARBON DIOXIDE 23 MMOL/L (21-32); CHLORIDE 108 MMOL/L (98-107); CREATININE SERUM 0.35 MG/DL (0.60-1.30); GFR ESTIMATED > 60; GLUCOSE 85 MG/DL (70-105); MAGNESIUM 2.2 MG/DL (1.8-2.4); POTASSIUM 4.2 MMOL/L (3.6-5.0); SODIUM 140 MMOL/L (135-145)
[2017-04-20 08:58] VITALS: BP 86/48
[2017-04-20] MEDS: POLYETHYLENE GLYCOL 17 GM (MIRALAX) PACK PO SCH ×3 (09:07→19:24)
[2017-04-20] MEDS: MULTIVIT W/MINERALS TAB (THERAGRAN M) PO SCH (09:07)
[2017-04-20] MEDS: metFORMIN 500 MG (GLUCOPHAGE) TAB PO SCH ×2 (09:07→15:57)
[2017-04-20] MEDS: NS IV 1000 ML 1,000 ML IV SCH (09:07)
[2017-04-20] MEDS: BISACODYL 5 MG (DULCOLAX) TABLET PO SCH ×3 (09:07→19:24)
[2017-04-20] MEDS: cefTRIAXone INJECTION 1,000 MG in NS (IVPB) 50 ML IV SCH (09:08)
[2017-04-20] MEDS: FLUTICASONE NASAL SPRAY (FLONASE) 16 GM BTL NS SCH (09:08)
[2017-04-20 09:21] VITALS: BP 92/55
[2017-04-20] MEDS ORDERED: CEPH-507 PO (11:40)
--- NOTE | 2017-04-20 12:05 | Discharge Instructions ---
Discharge [facility] Discharge Medications New, Converted or Re-Newed RX: Other Continued Medications: Alprazolam (Alprazolam) 0.5 Mg Tablet 0.5 MG PO TID PRN for ANXIETY Biotin (Biotin) 1,000 Mcg Tab.chew 2000 MCG PO DAILY, TAB TAKES 2 (1,000 MCG) GUMMIES Cranberry Conc/Ascorbic Acid (Cranberry Plus Vitamin C Sftgl) 1 Each Capsule 2 CAP PO HS, CAP Fluconazole (Fluconazole) 150 Mg Tablet 150 MG PO DAILY FILLED 04/18/17 #3 FOR A 3 DAY THERAPY Fluticasone Propionate (Fluticasone Propionate) 16 Gm [place].susp 1 SPRAY NS DAILY, EA L.acidoph & Paracasei,B.lactis (Probiotic) 1 Each Capsule 2 CAP PO HS, CAP Metformin HCl (Metformin HCl) 500 Mg Tablet 250 MG PO BID, TAB TAKES 1/2 OF A (500 MG) TABLET Multivitamin (Multivitamins) 1 Each Tablet 1 TAB PO DAILY, TAB Oxycodone HCl/Acetaminophen (Oxycodone-Acetaminophen 10-325) 1 Each Tablet 1 TAB PO Q4H PRN for PAIN-MODERATE Patient Instructions Goal/Follow Up Appt: WITH [facility]IL[facility] ON THURSDAY PREVIOUSLY SCHEDULED Patient Instructions: PLEASE TAKE YOUR REGIMEN PRESCRIBED. WE HAVE ADDED KEFLEX TO TREAT THE URINARY TRACT INFECTION. Return to The Hospital For: INABILITY TO PASS STOOL, FEVER >100.5 Activity & Diet Discharge Diet: No Restrictions Activity as Tolerated: Yes Orders-Post D/C & Referrals Pneu Vac Indicated: Yes Copy Copies To 1: NILO MEZA APRN, MD Apr 20, 2017 11:34
--- NOTE | 2017-04-20 12:05 | Discharge Summary ---
Diagnosis/Chief Complaint Date of Admission Apr 17, 2017 at 20:02 Date of Discharge Apr 20, 2017 Admission Diagnosis Admission Diagnosis SEE BELOW Discharge Diagnosis (1) Constipation Status: Acute Assessment & Plan: Failed outpatient treatment with miralax daily, senokot and Fleet's enema and mineral oil enema. Xray without obstruction. Is on chronic opiate therapy. Soap suds enema overnight x 3 with small amount of stool, will try methylnatrexone today given chronic opiate therapy, increase miralax to TID 1/7 methylnatrexone and soap suds enema x 3 repeated with small stool, will give magnesium citrate today, consider milk and molasses enema Qualifiers: Qualified Codes: K59.03 - Drug induced constipation DISCHARGE: Encouraged pt not to wait quite so long next time. Pt agreeable to go home today because her bowels have started moving successfully. (2) Cough Status: Acute DISCHARGE: No acute issues (3) Pressure ulcer of right ischium Status: Chronic Assessment & Plan: Air mattress Will increase dressing changes to daily given frequent enemas, etc during hospitalization- clean with saline, cover with Aquacell with silver and medipore DISCHARGE: Continue current regimen at discharge. (4) Diabetes mellitus type 2, controlled, without complications Status: Chronic Assessment & Plan: Diabetic diet Resume home metformin DISCHARGE: NO changes (5) Chronic pain Status: Chronic Qualifiers: Qualified Codes: G89.29 - Other chronic pain DISCHARGE: No changes (6) Chronic indwelling Chowdhury catheter Status: Chronic Assessment & Plan: Not due for change yet, UA/culture concerning for possible infection, however unclear if may be colonization. DISCHARGE: to be changed by Derrell on (7) Urinary tract infection Status: Acute Assessment & Plan: UA/culture concerning for possible infection, however unclear if may be colonization. Started on cipro from ER, will follow up sensitivities. Qualifiers: Qualified Codes: T83.511A - Infection and inflammatory reaction due to indwelling urethral catheter, initial encounter; N39.0 - Urinary tract infection , site not specified DISCHARGE: will DC on Keflex. MDR E coli. This was initially thought to be sterile pyuria. However, she had a temp overnight. This has sense resolved and patient has no complaints today. Chief Complaint/HPI Chief Complaint/HPI 56 yo female who is wheelchair bound secondary to Pcziuer-Exhcr-Qmjei and on chronic opiate therapy presented to ER with complaint of now bowel movement for 17 days. She has been taking miralax at home the last few days without benefit. She is nauseated but has no vomiting. She denies fever, but has had cold symptoms with congestion, cough and loss of voice over last day and a half. She has an indwelling urinary catheter which was changed before last and is typically changed every 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 She has had problems with recurrent urinary tract infections in the past. Chart review from clinic notes that she had called on 04/14 with original concern and used Fleet's enema x 1 without results, plan was for repeat the following day, but she reported Dr. Richard recommended mineral oil, which she tried without relief x [address] scan was obtained which showed moderate stool without obstruction, she was to continue mineral oil enemas, senokot, miralax daily and go to ER if no success. Discharge Summary-Simple/Stand Consultations Discharge Physical Examination Allergies: Coded Allergies: Sulfa (Sulfonamide Antibiotics) (Unverified Allergy, Mild, 07/29/08) Iodinated Contrast- Oral and IV Dye (Verified Allergy, Unknown, 07/30/08) latex (Verified Allergy, Unknown, 07/30/08) povidone-iodine (Unverified Allergy, Unknown, 08/28/13) soap (Unverified Allergy, Unknown, 08/28/13) Uncoded Allergies: CONTRAST DYE (Allergy, Mild, 07/29/08) EES (Allergy, Mild, 07/29/08) Vitals & I&Os Vital Sign - Last 12Hours Date Time Temp Pulse Resp B/P (MAP) Pulse Ox O2 Delivery O2 Flow Rate FiO2 04/20/17 09:21 92/55 (67) 04/20/17 08:58 98.4 61 16 95 Room Air Intake and Output 04/20/17 00:00 Intake Total 2322 ml Output Total 1275 ml Balance 1047 ml General Appearance: Alert, Oriented X3, Cooperative, No Acute Distress Respiratory: Clear to Auscultation, Normal Air Movement Cardiovascular: Regular Rate, Normal S1, Normal S2, No Murmurs, Gallops, Rubs Abdominal: Normal Bowel Sounds, Soft, No Tenderness, No Hepatosplenomegaly, No Masses Extremities: No Clubbing, No Cyanosis, No Edema Neuro: Other (pt with poor muscle tone c/w chronic condition) Hospital Course See final discharge diagnosis. Radiology Reviewed Abd x-ray 04/17: IMPRESSION: Nonspecific bowel gas pattern. Stool burden appears similar to yesterday's CT. Discharge Instructions to patient/family Please see electronic discharge instructions given to patient. Discharge Medications Reviewed and agree with Discharge Medication list on patient's Discharge Instruction sheet Clinical Quality Measures DVT/VTE Risk/Contraindication: Risk Factor Score Per Nursin RFS Level Per Nursing on Admit: 4+=Very High Copy Copies To 1: NILO MEZA APRN, MD Apr 20, 2017 12:05
[2017-04-20] MEDS: ALPRAZolam 0.5 MG (XANAX) TAB PO PRN ×2 (12:37→22:24)
[2017-04-20] MEDS: ENOXAPARIN 40 MG/0.4 ML (LOVENOX) SYR SC SCH (15:55)
[2017-04-20 16:43] VITALS: BP 87/73
[2017-04-20] MEDS: LACTOBACILLUS Acidoph/Bulgar (LACTINEX/FLORANEX) TAB PO SCH (20:33)
[2017-04-21] MEDS: IBUPROFEN 800 MG (MOTRIN) TAB PO PRN (00:05)
[2017-04-21 00:17] VITALS: BP 129/60
[2017-04-21] MEDS: NS IV 1000 ML 1,000 ML IV SCH (06:10)
[2017-04-21] MEDS: MULTIVIT W/MINERALS TAB (THERAGRAN M) PO SCH (06:10)
[2017-04-21] MEDS: metFORMIN 500 MG (GLUCOPHAGE) TAB PO SCH ×2 (06:11→18:29)
[2017-04-21 08:00] VITALS: BP 97/55
[2017-04-21] MEDS: cefTRIAXone INJECTION 1,000 MG in NS (IVPB) 50 ML IV SCH (09:30)
[2017-04-21] MEDS: BISACODYL 5 MG (DULCOLAX) TABLET PO SCH ×4 (09:30→20:27)
[2017-04-21] MEDS: FLUTICASONE NASAL SPRAY (FLONASE) 16 GM BTL NS SCH (09:31)
[2017-04-21] MEDS: POLYETHYLENE GLYCOL 17 GM (MIRALAX) PACK PO SCH ×3 (09:33→20:27)
[2017-04-21 09:52] LABS: BASOPHILS % (AUTO) 0 % (0-10); EOSINOPHILS # (AUTO) 0.1 10^3/uL (0.0-0.3); EOSINOPHILS % (AUTO) 1 % (0-10); HEMATOCRIT 36 % (35-52); HEMOGLOBIN 11.6 G/DL (11.5-16.0); LYMPHOCYTES # (AUTO) 1.7 X 10^3 (1.0-4.0); LYMPHOCYTES % (AUTO) 34 % (12-44); MEAN CORPUSCULAR HEMOGLOBIN 31 PG (25-34); MEAN CORPUSCULAR HGB CONC 32 G/DL (32-36); MEAN CORPUSCULAR VOLUME 97 FL (80-99); MEAN PLATELET VOLUME 9.7 FL (7.4-10.4); MONOCYTES # (AUTO) 0.9 X 10^3 (0.0-1.0); MONOCYTES % (AUTO) 18 % (0-12); NEUTROPHILS # (AUTO) 2.3 X 10^3 (1.8-7.8); NEUTROPHILS % (AUTO) 46 % (42-75); PLATELET COUNT 164 10^3/uL (130-400); RED CELL DISTRIBUTION WIDTH 14.7 % (10.0-14.5)
[2017-04-21 10:16] LABS: BAND NEUTROPHILS 4 %; BASOPHILS % (MANUAL) 0 %; EOSINOPHILS % (MANUAL) 0 %; LYMPHOCYTES % (MANUAL) 35 %; MONOCYTES % (MANUAL) 12 %; NEUTROPHILS % (MANUAL) 49 %; RBC MORPH NORMAL
--- NOTE | 2017-04-21 12:12 | Progress Note (SOAP) ---
Subjective Subjective/Events-last exam We had initially discharged Katarina, but she spiked a fever overnight. For this reason, we decided to keep her and do a work up. She has a slight cough but no other symptoms. She does not have abdominal pain (that is quite better), no pain with her catheter, no sputum production. Review of Systems Date Seen by Provider: Apr 21, 2017 Time Seen by Provider: 09:00 General: No Chills HEENT: No Head Aches Pulmonary: No Dyspnea, Cough Cardiovascular: No: Chest Pain Gastrointestinal: No: Nausea Genitourinary: No Dysuria Objective Exam Last Set of Vital Signs Vital Signs Date Time Temp Pulse Resp B/P (MAP) Pulse Ox O2 Delivery O2 Flow Rate FiO2 04/21/17 08:00 96.2 66 24 97/55 (69) 96 Room Air Capillary Refill : Less Than 3 Seconds I&O Intake and Output 04/21/17 00:00 Intake Total 1340 ml Output Total 2300 ml Balance -960 ml Intake Oral 1340 ml Output Urine Total 2300 ml # Bowel Movements 2 General: Alert, No Acute Distress Lungs: Clear to Auscultation, Normal Air Movement Heart: Regular Rate, Normal S1, Normal S2, No Murmurs, Gallops, Rubs Abdomen: Normal Bowel Sounds, Soft, No Tenderness, No Hepatosplenomegaly, No Masses Results/Procedures Lab Laboratory Tests 04/21/17 09:45: White Blood Count 5.0, Red Blood Count 3.70L, Hemoglobin 11.6, Hematocrit 36, Mean Corpuscular Volume 97, Mean Corpuscular Hemoglobin 31, Mean Corpuscular Hemoglobin Concent 32, Red Cell Distribution Width 14.7H, Platelet Count 164, Mean Platelet Volume 9.7, Neutrophils (%) (Auto) 46, Lymphocytes (%) (Auto) 34, Monocytes (%) (Auto) 18H, Eosinophils (%) (Auto) 1, Basophils (%) (Auto) 0, Neutrophils # (Auto) 2.3, Lymphocytes # (Auto) 1.7, Monocytes # (Auto) 0.9, Eosinophils # (Auto) 0.1, Basophils # (Auto) 0.0, Neutrophils % (Manual) 49, Lymphocytes % (Manual) 35, Monocytes % (Manual) 12, Eosinophils % (Manual) 0, Basophils % (Manual) 0, Band Neutrophils 4, Blood Morphology Comment NORMAL Microbiology 04/17/17 Urine Culture - Final, Complete Escherichia Coli Lactobacillus Species Radiology Abd x-ray 04/17: IMPRESSION: Nonspecific bowel gas pattern. Stool burden appears similar to yesterday's CT. Assessment/Plan Assessment/Plan Plan (1) Constipation Status: Acute Assessment & Plan: Failed outpatient treatment with miralax daily, senokot and Fleet's enema and mineral oil enema. Xray without obstruction. Is on chronic opiate therapy. Soap suds enema overnight x 3 with small amount of stool, will try methylnatrexone today given chronic opiate therapy, increase miralax to TID 04/19 methylnatrexone and soap suds enema x 3 repeated with small stool, will give magnesium citrate today, consider milk and molasses enema Qualifiers: Qualified Codes: K59.03 - Drug induced constipation DISCHARGE: Encouraged pt not to wait quite so long next time. Pt agreeable to go home today because her bowels have started moving successfully. 04/21 - resolved (2) Cough Status: Acute DISCHARGE: No acute issues 04/21 - cough with fever. will check flu swab. CXR today shows fluid, so will give a dose of lasix IVF. this would certainly explain the temps as well. (3) Pressure ulcer of right ischium Status: Chronic Assessment & Plan: Air mattress Will increase dressing changes to daily given frequent enemas, etc during hospitalization- clean with saline, cover with Aquacell with silver and medipore DISCHARGE: Continue current regimen at discharge. (4) Diabetes mellitus type 2, controlled, without complications Status: Chronic Assessment & Plan: Diabetic diet Resume home metformin DISCHARGE: NO changes (5) Chronic pain Status: Chronic Qualifiers: Qualified Codes: G89.29 - Other chronic pain DISCHARGE: No changes (6) Chronic indwelling Chowdhury catheter Status: Chronic Assessment & Plan: Not due for change yet, UA/culture concerning for possible infection, however unclear if may be colonization. DISCHARGE: to be changed by Derrell on (7) Urinary tract infection Status: Acute Assessment & Plan: UA/culture concerning for possible infection, however unclear if may be colonization. Started on cipro from ER, will follow up sensitivities. Qualifiers: Qualified Codes: T83.511A - Infection and inflammatory reaction due to indwelling urethral catheter, initial encounter; N39.0 - Urinary tract infection , site not specified DISCHARGE: will DC on Keflex. MDR E coli. This was initially thought to be sterile pyuria. However, she had a temp overnight. This has sense resolved and patient has no complaints today. 04/21 - do not suspect this is related. will dc on the keflex. (1) Constipation Status: Acute Qualifiers: Qualified Codes: K59.03 - Drug induced constipation (2) Cough Status: Acute (3) Pressure ulcer of right ischium Status: Chronic (4) Diabetes mellitus type 2, controlled, without complications Status: Chronic (5) Chronic pain Status: Chronic Qualifiers: Qualified Codes: G89.29 - Other chronic pain (6) Chronic indwelling Chowdhury catheter Status: Chronic (7) Urinary tract infection Status: Acute Qualifiers: Qualified Codes: T83.511A - Infection and inflammatory reaction due to indwelling urethral catheter, initial encounter; N39.0 - Urinary tract infection , site not specified (8) DVT prophylaxis Status: Acute Clinical Quality Measures DVT/VTE Risk/Contraindication: Risk Factor Score Per Nursin RFS Level Per Nursing on Admit: 4+=Very High NILO JONES MD Apr 21, 2017 12:12
[2017-04-21] MEDS: oxyCODONE/APAP 10/325MG (PERCOCET 10) TABLET PO PRN ×3 (13:45→23:09)
[2017-04-21] MEDS: ALPRAZolam 0.5 MG (XANAX) TAB PO PRN ×2 (13:45→20:25)
[2017-04-21] MEDS: ENOXAPARIN 40 MG/0.4 ML (LOVENOX) SYR SC SCH (15:49)
[2017-04-21 16:30] VITALS: BP 130/58
--- NOTE | 2017-04-21 16:40 | Diagnostic Imaging Report ---
INDICATION: Fever of unknown origin. EXAMINATION: AP and lateral views of the chest are obtained. COMPARISON: Comparison is made with study of 10/17/2016. FINDINGS: Study is somewhat limited due to positioning and technique. Overall heart size and pulmonary vascularity are at the upper limits of normal. There is no evidence of pneumothorax. Extensive thoracic spinal deformity and posterior rods are noted. There is blunting of the posterior costophrenic sulcus on the lateral view. No consolidation is seen. IMPRESSION: Limited study with apparent development of pleural fluid since previous examination. If indicated, follow study may be of value for further assessment. Dictated by: Dictated on workstation # [id number]
[2017-04-21] MEDS ORDERED: FUROSEMIDE 40 MG/4 ML INJ (LASIX) IVP NR (20:00)
[2017-04-21] MEDS ORDERED: FUROSEMIDE 40 MG/4 ML INJ (LASIX) ONE (20:13)
[2017-04-21] MEDS: LACTOBACILLUS Acidoph/Bulgar (LACTINEX/FLORANEX) TAB PO SCH ×2 (20:21→20:26)
[2017-04-21] MEDS: RT-ALBUTEROL/IPRATROPIUM 3 ML (DUONEB) VIAL INH SCH ×2 (22:40→22:55)
[2017-04-21 22:55] VITALS: BP 124/79
[2017-04-22] VITALS: BP 124/79
[2017-04-22] MEDS ORDERED: RT-ALBUTEROL/IPRATROPIUM 3 ML (DUONEB) VIAL INH PRN (01:45)
[2017-04-22] MEDS: RT-ALBUTEROL/IPRATROPIUM 3 ML (DUONEB) VIAL INH SCH ×4 (02:41→14:03)
[2017-04-22] MEDS: oxyCODONE/APAP 10/325MG (PERCOCET 10) TABLET PO PRN ×2 (03:00→12:03)
[2017-04-22] MEDS: IBUPROFEN 800 MG (MOTRIN) TAB PO PRN (04:10)
[2017-04-22 07:24] LABS: HEMOGLOBIN 12.3 G/DL (11.5-16.0); MEAN PLATELET VOLUME 9.7 FL (7.4-10.4); RED BLOOD COUNT 3.88 10^6/uL (4.35-5.85); RED CELL DISTRIBUTION WIDTH 14.6 % (10.0-14.5); WHITE BLOOD COUNT 5.7 10^3/uL (4.3-11.0)
[2017-04-22 07:44] LABS: BUN/CREATININE RATIO 21; CALCIUM 8.6 MG/DL (8.5-10.1); CARBON DIOXIDE 25 MMOL/L (21-32); CHLORIDE 102 MMOL/L (98-107); CREATININE SERUM 0.39 MG/DL (0.60-1.30); GFR ESTIMATED > 60; GLUCOSE 87 MG/DL (70-105); POTASSIUM 3.7 MMOL/L (3.6-5.0); SODIUM 139 MMOL/L (135-145)
[2017-04-22] MEDS: MULTIVIT W/MINERALS TAB (THERAGRAN M) PO SCH (09:13)
[2017-04-22] MEDS: POLYETHYLENE GLYCOL 17 GM (MIRALAX) PACK PO SCH ×2 (09:14→12:04)
[2017-04-22] MEDS: metFORMIN 500 MG (GLUCOPHAGE) TAB PO SCH (09:14)
[2017-04-22] MEDS: BISACODYL 5 MG (DULCOLAX) TABLET PO SCH ×2 (09:14→12:04)
[2017-04-22] MEDS: FLUTICASONE NASAL SPRAY (FLONASE) 16 GM BTL NS SCH (09:15)
[2017-04-22] MEDS: cefTRIAXone INJECTION 1,000 MG in NS (IVPB) 50 ML IV SCH (09:16)
[2017-04-22] MEDS ORDERED: FUROSEMIDE 40 MG/4 ML INJ (LASIX) IVP NR (11:35)
[2017-04-22] MEDS: ALPRAZolam 0.5 MG (XANAX) TAB PO PRN (12:03)
[2017-04-22] MEDS: ENOXAPARIN 40 MG/0.4 ML (LOVENOX) SYR SC SCH (15:41)
[2017-04-23] MEDS ORDERED: OSLT75C PO (13:12)
--- NOTE | 2017-04-23 13:17 | Discharge Summary ---
Diagnosis/Chief Complaint Date of Admission Apr 20, 2017 at 16:15 Date of Discharge Apr 22, 2017 at 16:19 Admission Diagnosis Admission Diagnosis SEE BELOW Discharge Diagnosis (1) Constipation Status: Acute Assessment & Plan: Failed outpatient treatment with miralax daily, senokot and Fleet's enema and mineral oil enema. Xray without obstruction. Is on chronic opiate therapy. Soap suds enema overnight x 3 with small amount of stool, will try methylnatrexone today given chronic opiate therapy, increase miralax to TID 04/19 methylnatrexone and soap suds enema x 3 repeated with small stool, will give magnesium citrate today, consider milk and molasses enema Qualifiers: Qualified Codes: K59.03 - Drug induced constipation DISCHARGE: Encouraged pt not to wait quite so long next time. Pt agreeable to go home today because her bowels have started moving successfully. 04/21 - resolved (2) Cough Status: Acute DISCHARGE: No acute issues 04/21 - cough with fever. will check flu swab. CXR today shows fluid, so will give a dose of lasix IVF. this would certainly explain the temps as well. 04/22 - Pt feeling better this morning after the lasix. No fevers in 24h. Will DC home with close follow up on . (3) Pressure ulcer of right ischium Status: Chronic Assessment & Plan: Air mattress Will increase dressing changes to daily given frequent enemas, etc during hospitalization- clean with saline, cover with Aquacell with silver and medipore DISCHARGE: Continue current regimen at discharge. (4) Diabetes mellitus type 2, controlled, without complications Status: Chronic Assessment & Plan: Diabetic diet Resume home metformin DISCHARGE: NO changes (5) Chronic pain Status: Chronic Qualifiers: Qualified Codes: G89.29 - Other chronic pain DISCHARGE: No changes (6) Chronic indwelling Chowdhury catheter Status: Chronic Assessment & Plan: Not due for change yet, UA/culture concerning for possible infection, however unclear if may be colonization. DISCHARGE: to be changed by Derrell on (7) Urinary tract infection Status: Acute Assessment & Plan: UA/culture concerning for possible infection, however unclear if may be colonization. Started on cipro from ER, will follow up sensitivities. Qualifiers: Qualified Codes: T83.511A - Infection and inflammatory reaction due to indwelling urethral catheter, initial encounter; N39.0 - Urinary tract infection , site not specified DISCHARGE: will DC on Keflex. MDR E coli. This was initially thought to be sterile pyuria. However, she had a temp overnight. This has sense resolved and patient has no complaints today. 04/21 - do not suspect this is related. will dc on the keflex. Chief Complaint/HPI Chief Complaint/HPI 56 yo female who is wheelchair bound secondary to [id number] and on chronic opiate therapy presented to ER with complaint of now bowel movement for 17 days. She has been taking miralax at home the last few days without benefit. She is nauseated but has no vomiting. She denies fever, but has had cold symptoms with congestion, cough and loss of voice over last day and a half. She has an indwelling urinary catheter which was changed before last and is typically changed every 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 She has had problems with recurrent urinary tract infections in the past. Chart review from clinic notes that she had called on 04/14 with original concern and used Fleet's enema x 1 without results, plan was for repeat the following day, but she reported Dr. Richard recommended mineral oil, which she tried without relief x [address] scan was obtained which showed moderate stool without obstruction, she was to continue mineral oil enemas, senokot, miralax daily and go to ER if no success. Discharge Summary-Simple/Stand Consultations Discharge Physical Examination Allergies: Coded Allergies: Sulfa (Sulfonamide Antibiotics) (Unverified Allergy, Mild, 07/29/08) Iodinated Contrast- Oral and IV Dye (Verified Allergy, Unknown, 07/30/08) latex (Verified Allergy, Unknown, 07/30/08) povidone-iodine (Unverified Allergy, Unknown, 08/28/13) soap (Unverified Allergy, Unknown, 08/28/13) Uncoded Allergies: CONTRAST DYE (Allergy, Mild, 07/29/08) EES (Allergy, Mild, 07/29/08) Vitals & I&Os Vital Sign - Last 12Hours Date Time Temp Pulse Resp B/P (MAP) Pulse Ox O2 Delivery O2 Flow Rate FiO2 04/22/17 14:03 93 Nasal Cannula 4.00 04/22/17 07:01 97.7 04/22/17 00:00 90 20 124/79 (94) Intake and Output 04/23/17 00:00 Intake Total 750 ml Output Total 1500 ml Balance -750 ml General Appearance: Alert, Oriented X3, Cooperative, No Acute Distress Respiratory: Clear to Auscultation, Normal Air Movement Cardiovascular: Regular Rate, Normal S1, Normal S2, No Murmurs, Gallops, Rubs Abdominal: Normal Bowel Sounds, Soft, No Tenderness, No Hepatosplenomegaly, No Masses Extremities: No Clubbing, No Cyanosis, No Edema Hospital Course See final discharge diagnosis. Labs Laboratory Tests Test 04/21/17 09:45 04/22/17 07:14 Range/Units White Blood Count 5.0 5.7 4.3-11.0 10^3/uL Red Blood Count 3.70 L 3.88 L 4.35-5.85 10^6/uL Hemoglobin 11.6 12.3 11.5-16.0 G/DL Hematocrit 36 37 35-52 % Mean Corpuscular Volume 97 95 80-99 FL Mean Corpuscular Hemoglobin 31 32 25-34 PG Mean Corpuscular Hemoglobin Concent 32 33 32-36 G/DL Red Cell Distribution Width 14.7 H 14.6 H 10.0-14.5 % Platelet Count 164 156 130-400 10^3/uL Mean Platelet Volume 9.7 9.7 7.4-10.4 FL Neutrophils (%) (Auto) 46 42-75 % Lymphocytes (%) (Auto) 34 12-44 % Monocytes (%) (Auto) 18 H 0-12 % Eosinophils (%) (Auto) 1 0-10 % Basophils (%) (Auto) 0 0-10 % Neutrophils # (Auto) 2.3 1.8-7.8 X 10^3 Lymphocytes # (Auto) 1.7 1.0-4.0 X 10^3 Monocytes # (Auto) 0.9 0.0-1.0 X 10^3 Eosinophils # (Auto) 0.1 0.0-0.3 10^3/uL Basophils # (Auto) 0.0 0.0-0.1 10^3/uL Neutrophils % (Manual) 49 % Lymphocytes % (Manual) 35 % Monocytes % (Manual) 12 % Eosinophils % (Manual) 0 % Basophils % (Manual) 0 % Band Neutrophils 4 % Blood Morphology Comment NORMAL Sodium Level 139 135-145 MMOL/L Potassium Level 3.7 3.6-5.0 MMOL/L Chloride Level 102 98-107 MMOL/L Carbon Dioxide Level 25 21-32 MMOL/L Anion Gap 12 5-14 MMOL/L Blood Urea Nitrogen 8 7-18 MG/DL Creatinine 0.39 L 0.60-1.30 MG/DL Estimat Glomerular Filtration Rate > 60 BUN/Creatinine Ratio 21 Glucose Level 87 70-105 MG/DL Calcium Level 8.6 8.5-10.1 MG/DL Radiology Reviewed Abd x-ray 04/17: IMPRESSION: Nonspecific bowel gas pattern. Stool burden appears similar to yesterday's CT. Discharge Instructions to patient/family Please see electronic discharge instructions given to patient. Discharge Medications Reviewed and agree with Discharge Medication list on patient's Discharge Instruction sheet Clinical Quality Measures DVT/VTE Risk/Contraindication: Risk Factor Score Per Nursin RFS Level Per Nursing on Admit: 4+=Very High Copy Copies To 1: NILO MEZA APRN, MD Apr 23, 2017 13:17
== END 2017-04-22 16:19 | disposition home or self-care (01) | DRG 392 ==
LOC: EDUNIT# 17:55 → ER 17:56 → UNDOADMOB 20:02 → 4TH 20:02 → OBSVTOIN 04-20 16:15 → INTOOBSV 04-20 16:15
PROVIDERS: ADMIT Family Medicine; ATTEND Family Medicine
DX: K59.03 Drug induced constipation (principal); T40.2X5A Adverse effect of other opioids, initial encounter; T83.511A Infection and inflammatory reaction due to indwelling urethral catheter, initial encounter; N39.0 Urinary tract infection, site not specified; R05 Cough; L89.219 Pressure ulcer of right hip, unspecified stage; G60.0 Hereditary motor and sensory neuropathy; Z99.3 Dependence on wheelchair; G89.29 Other chronic pain; Z79.891 Long term (current) use of opiate analgesic; F17.210 Nicotine dependence, cigarettes, uncomplicated; Z87.442 Personal history of urinary calculi; Z79.84 Long term (current) use of oral hypoglycemic drugs; M54.9 Dorsalgia, unspecified; F32.9 Major depressive disorder, single episode, unspecified
CPT/HCPCS: 36415; 71046; 74018; 80048; 80053; 81000; 83735; 85007; 85025; 85027; 86141; 87040; 87088; 87186; 94640; 94664; 94760; G0378

== ENCOUNTER 2017-04-22 20:28 | Emergency (ER) | payer MEDICAID ==
[~2017-04-22] VITALS: Ht 154.9 cm; Wt 56.7 kg
[~2017-04-22 20:28] MED LIST changes: +BIOT10004 PO; +FLUC150T2 PO; +METF500T4 PO; +MULT1TAB69 PO; +OXYC-465 PO
[2017-04-22] MEDS ORDERED: RX-OSELTAMIVIR 75 MG (TAMIFLU) BOX OF 10 PO STA (23:10)
[2017-04-22] MEDS ORDERED: RT-ALBUTEROL/IPRATROPIUM 3 ML (DUONEB) VIAL INH ONE (23:45)
[2017-04-23] MEDS ORDERED: RX-ALBUTEROL INHALER (PROAIR) 8 GM IH STA (00:25)
[2017-04-23] MEDS ORDERED: RX-ALBUTEROL INHALER (PROAIR) 8 GM IH ONE (00:25)
--- NOTE | 2017-04-23 00:29 | ED General ---
General Chief Complaint: Fever-Adult/Adol Stated Complaint: FEVER;NOT FEELING WELL Nursing Triage Note: pt was just dc'd from the hospital today. she was being treated for constipation. she received ivf as part of her treatment which caused fluid on her lungs. she was treated with lasix today, which produced 1300ml urine output. she had breathing treatments et IS while in the hospital. she admits to productive cough. she reports she has been unable to produce sputum with her cough since 0430 this morning. reports fever of 101.1 this evening. progressively feeling more weak et fatigued. denies soa, but sao2 is 88% on room air. Nursing Sepsis Screen: No Definite Risk Source of Information: Patient, Old Records Exam Limitations: No Limitations History of Present Illness Time Seen by Provider: 22:00 Initial Comments This 56-year-old woman presents to the emergency room with complaints of shortness of air, cough, and fever. She had recently been admitted to the hospital for treatment of constipation. She had some fluid overload and was subsequently treated with Lasix. She was also diagnosed with urinary tract infection and was started on Keflex. Allergies and Home Medications Allergies Coded Allergies: Sulfa (Sulfonamide Antibiotics) (Unverified Allergy, Mild, 07/29/08) Iodinated Contrast- Oral and IV Dye (Verified Allergy, Unknown, 07/30/08) latex (Verified Allergy, Unknown, 07/30/08) povidone-iodine (Unverified Allergy, Unknown, 08/28/13) soap (Unverified Allergy, Unknown, 08/28/13) Uncoded Allergies: CONTRAST DYE (Allergy, Mild, 07/29/08) EES (Allergy, Mild, 07/29/08) Home Medications Alprazolam 0.5 Mg Tablet, 0.5 MG PO TID PRN for ANXIETY, (Reported) Biotin 1,000 Mcg Tab.chew, 2,000 MCG PO DAILY, (Reported) TAKES 2 (1,000 MCG) GUMMIES Cephalexin 500 Mg Capsule, 500 MG PO QID for 5 Days, #20 Ref 0 Prescribed by: NILO JONES on 04/20/17 1140 Cranberry Conc/Ascorbic Acid 1 Each Capsule, 2 CAP PO HS, (Reported) Fluticasone Propionate 16 Gm [place].susp, 1 SPRAY NS DAILY, (Reported) L.acidoph & Paracasei,B.lactis 1 Each Capsule, 2 CAP PO HS, (Reported) Metformin HCl 500 Mg Tablet, 250 MG PO BID, (Reported) TAKES 1/2 OF A (500 MG) TABLET Multivitamin 1 Each Tablet, 1 TAB PO DAILY, (Reported) Oxycodone HCl/Acetaminophen 1 Each Tablet, 1 TAB PO Q4H PRN for PAIN-MODERATE, ( Reported) Constitutional: see HPI EENTM: no symptoms reported Respiratory: see HPI Cardiovascular: no symptoms reported Gastrointestinal: see HPI Genitourinary: see HPI : No Musculoskeletal: no symptoms reported Skin: no symptoms reported Hematologic/Lymphatic: No Symptoms Reported Past Bzthrpx-Ngrtvv-Hbsper Hx Patient Social History Alcohol Use: Denies Use Number of Drinks Today: Alcohol Beverage of Choice: Wine Recreational Drug Use: No Smoking Status: Current Everyday Smoker Type Used: Cigarettes Former Smoker, Quit: Apr 13, 2017 2nd Hand Smoke Exposure: Yes Recent Foreign Travel: No Contact w/Someone Who Travel: No Recent Infectious Disease Expo: No Recent Hopitalizations: No Physical Abuse: No Sexual Abuse: No Mistreated: No Fear: No Immunizations Up To Date Tetanus Booster (TDap): Unknown Date of Pneumonia Vaccine: Feb 28, 2011 Date of Influenza Vaccine: Mar 02, 2016 Seasonal Allergies Seasonal Allergies: Yes Surgeries History of Surgeries: Yes (HEEL CORD LENGTHENING, SPINAL FUSION, ischial tuberocity wound) Surgeries: Gallbladder, Orthopedic Respiratory History of Respiratory Disorde: Yes Respiratory Disorders: Pneumonia Currently Using CPAP: No Currently Using BIPAP: No Cardiovascular History of Cardiac Disorders: No Neurological History of Neurological Disord: Yes ([id number], NON-AMBULATORY) Reproductive System Hx Reproductive Disorders: Yes 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 Genitourinary History of Genitourinary Disor: Yes Genitourinary Disorders: Kidney Stones, Neurogenic Bladder, UTI-Chronic Gastrointestinal History of Gastrointestinal Di: Yes Gastrointestinal Disorders: Colitis, Chronic Diarrhea, Ulcer Musculoskeletal History of Musculoskeletal Dis: Yes ([id number] AND IS NON-AMBULATORY) Musculoskeletal Disorders: Osteoporosis, Arthritis, Fractures Endocrine History of Endocrine Disorders: Yes Endocrine Disorders: Diabetes, Non-Insulin dep HEENT History of HEENT Disorders: No Loss of Vision: Denies Hearing Impairment: Denies Cancer History of Cancer: No Psychosocial History of Psychiatric Problem: Yes Behavioral Health Disorders: Anxiety Suicide Risk Score: 0 Integumentary History of Skin or Integumenta: Yes (CHRONIC SACRAL DECUB ULCER SINCE 2008) Blood Transfusions History of Blood Disorders: No Adverse Reaction to a Blood Tr: No Family Medical History Family Medial History: FH: breast cancer 19 MOTHER, Onset:Unknown FH: pneumonia 19 FATHER, Onset:60 years & older Gout 19 FATHER, Onset:Unknown Hypertension 19 FATHER, Onset:Unknown Physical Exam Vital Signs Vital Sign - Last 12Hours 04/22/17 21:18 Temp 98.0 Pulse 90 Resp 20 B/P (MAP) 122/66 (84) Pulse Ox 93 O2 Delivery Nasal Cannula O2 Flow Rate 2.00 Capillary Refill : Less Than 3 Seconds General Appearance: WD/WN, Mild Distress (tachypnea) HEENT: PERRL/EOMI, TMs Normal, Normal ENT Inspection, Pharynx Normal Neck: Normal Inspection Respiratory: Lungs Clear, No Accessory Muscle Use, No Respiratory Distress, Decreased Breath Sounds, Other (decreased breath sounds in the bases. Tachypnea. Increased work of breathing) Cardiovascular: Regular Rate, Rhythm, No Edema, Normal Peripheral Pulses Gastrointestinal: Normal Bowel Sounds, Non Tender, Soft Extremity: Normal Inspection, No Pedal Edema, Other (chronic disfigurement from Lgtiqbq-Trzic-Zukok) Neurologic/Psychiatric: Alert, Oriented x3, No Motor/Sensory Deficits, Normal Mood/Affect, shape carver II-XII Norm as Tested Skin: Normal Color, Warm/Dry Progress/Results/Core Measures Suspected Sepsis Recent Fever Within 48 Hours: Yes Infection Criteria Present: Suspected New Infection New/Unexplained Altered Menta: No Sepsis Screen: No Definite Risk Sepsis Diagnosis: SIRS Temperature:98.0 Pulse: 90 Respiratory Rate: 20 Blood Pressure 122 /66 Mean: 84 Results/Orders Micro Results Microbiology 04/22/17 Influenza Types A,B Antigen (AURELIO) - Final, Complete My Orders Orders - ALYSIA CASTRO MD Chest 1 View, Ap/Pa Only (04/22/17 22:00) Influenza A And B Antigens (04/22/17 22:00) Rx-Oseltamivir Caps (Rx-Tamiflu Caps) (04/22/17 23:10) Albuterol/Ipra Inhalation Soln (Duoneb I (04/22/17 23:45) Svn Sm Volume Nebulizer Rt-Rfs (04/22/17 23:42) Rx-Albuterol Inhaler (Rx-Proair) (04/23/17 00:25) Rx-Albuterol Inhaler (Rx-Proair) (04/23/17 00:25) Acetaminophen Tablet/Caplet (Tylenol T (04/23/17 00:30) Medications Given in ED Current Medications Medications Dose Ordered Sig/Bo Route Start Time Stop Time Status Last Admin Dose Admin Acetaminophen 650 mg ONCE ONCE PO 04/23/17 00:30 04/23/17 00:31 DC 04/23/17 00:39 650 MG Albuterol/ Ipratropium 3 ml ONCE ONCE INH 04/22/17 23:45 04/22/17 23:46 DC 04/22/17 23:48 3 ML Vital Signs/I&O Vital Sign - Last 12Hours 04/22/17 04/22/17 04/23/17 04/23/17 21:18 23:49 00:30 00:40 Temp 98.0 Pulse 90 89 Resp 20 18 B/P (MAP) 122/66 (84) Pulse Ox 93 96 91 O2 Delivery Nasal Cannula Nasal Cannula Room Air Room Air O2 Flow Rate 2.00 2.00 Capillary Refill : Less Than 3 Seconds Blood Pressure Mean: 84 Progress Note : Progress Note Patient was found to have influenza B. She initially had oxygen saturations in the upper 80s and required oxygen by nasal cannula. Patient received a DuoNeb treatment and was maintaining oxygen saturations in the 90-93 percent range after the nebulizer. She also had improved aeration on auscultation after the treatment. We discussed admission for observation versus dismissal home with dispensing of an albuterol inhaler. Patient elects to return home. She was dispensed with a take-home packet of Tamiflu as well as an inhaler with spacer. Respiratory therapy provided education on proper use. Patient also received Tylenol while in the ER. Her urine culture from her prior admission was reviewed. Patient was prescribed Keflex which seemed appropriate given sensitivity to cephalosporins on the culture. Patient was given Tylenol for her fever since she did not have any home. Diagnostic Imaging Diagonstic Imaging: Xray Plain Films/CT/US/NM/MRI: chest Comments Chest x-ray viewed by me and compared with prior. Atelectasis in the bases, otherwise unremarkable. Report not yet available. Departure Impression Impression: Primary Impression: Influenza B Disposition: 01 HOME, SELF-CARE Condition: Improved Departure-Patient Inst. Decision time for Depature: 00:20 Referrals: GILBERTO PRICE DO (PCP) Primary Care Physician DWAINE BENITO (Family) Primary Care Physician Patient Instructions: Flu, Adult (DC) Add. Discharge Instructions: Complete your antibiotics as prescribed. Take your first dose tonight when you return home. Complete Tamiflu as prescribed. You may take Tylenol ( acetaminophen) up to 650 mg every 6 hours as needed for fever and pain. Add ibuprofen up to 400 mg every 6 hours as needed for further relief of pain or fever. Please return to the emergency room if you have worsening symptoms, especially if you have worsening shortness of breath not relieved by the inhaler. All discharge instructions reviewed with patient and/or family. Voiced understanding. Copy Copies To 1: GILBERTO PRICE JOSHUA T MD Apr 23, 2017 00:29
[2017-04-23] MEDS ORDERED: ACETAMINOPHEN 325 MG TABLET/CAPLET (TYLENOL) PO ONE (00:30)
[2017-04-23 00:40] VITALS: BP 120/62
--- NOTE | 2017-04-23 07:50 | Diagnostic Imaging Report ---
INDICATION: Cough and fever Portable chest 10:08 PM Heart size and pulmonary vascularity are normal. Lungs are clear. There are no effusions or pneumothoraces. Patient has had orthopedic johanne placement in the spine for scoliosis. IMPRESSION: No acute abnormalities in the chest Dictated by: Dictated on workstation # [id number]
[2017-04-23] MEDS ORDERED: OSLT75C PO (13:12)
--- OUTSIDE RECORDS SUMMARY | 2017-04-23 19:25 | XMS REPORT | Clinical Summary ---
Author Author [facility] Organization [facility] Address Unknown Phone Unavailable Care Team Providers Care Alcohol Rubber Name Role Phone PCP Unavailable Source Comments Some departments are not documenting in the electronic medical record. If you do not see the information that you expected, contact Release of Information in the Health Information Management department at [phone] for further assistance in locating additional records.[facility] Allergies Active Allergy Reactions Severity Noted [...] Taken Blood Pressure 114/70 03/31/2009 6:00 AM HEALTH DIRECTOR Pulse 80 03/31/2009 6:00 AM HEALTH DIRECTOR Temperature 36.6 C (97.9 F) 03/31/2009 6:00 AM HEALTH DIRECTOR Respiratory Rate - - Oxygen Saturation 95% 03/31/2009 6:00 AM HEALTH DIRECTOR Inhaled Oxygen - - Concentration Weight 68.1 kg (150 lb 2.1 oz) 03/23/2009 3:00 PM HEALTH DIRECTOR Height 154.9 cm (5' 1") 03/23/2009 3:00 PM HEALTH DIRECTOR Body Mass Index 28.37 03/23/2009 3:00 PM HEALTH DIRECTOR Plan of Treatment Health Maintenance Due Date Last Done Comments HEPATITIS C SCREENING 1958 PHYSICAL (COMPREHENSIVE) 1965 EXAM PERTUSSIS VACCINE 1969 TETANUS VACCINE 11/03/1975 CERVICAL CANCER SCREENING 1988 BREAST CANCER SCREENING 1998 COLORECTAL CANCER 2008 SCREENING INFLUENZA VACCINE 11/11/2016 Results Not on filefrom Last 3 Months
--- OUTSIDE RECORDS SUMMARY | 2017-04-23 19:39 | XMS REPORT | Continuity of Care Document ---
Author Author [facility] Address Unknown Phone Unavailable Allergies Active Description Code Type Severity Reaction Onset Reported/Identified Relationship to Patient Clinical Status Yes CONTRAST DYE CONTRAST DYE Mild N/A 07/29/2008 Yes EES EES Mild N/A 07/29/2008 Yes Sulfa (Sulfonamide Antibiotics) [id number] Drug Allergy Mild N/A 2008 Yes Iodinated Contrast Media - IV Dye [id number] Drug Allergy Unknown N/A 07/30 Yes Iodinated Contrast Media - Oral and [id number] Drug Allergy Unknown N/A Yes Iodinated Contrast- Oral and IV Dye [id number] Drug Allergy Unknown N/A Yes latex [id number] Drug Allergy Unknown N/A 07/30/[address] [...] mg tablet Drug Allergy 04/19/2012 Yes povidone-iodine [id number] Drug Allergy Unknown N/A 08/28/2013 Yes Soap [id number] Drug Allergy Unknown N/A 08/28/2013 Medications There [...] MUSCULAR ATROPHY 06/03/2010 780.79 FATIGUE 06/03/2010 THONG CLERK TELEVISION PRODUCTION, DWAINE T 250.00 DIABETES MELLITUS TYPE 2 [...] T 356.1 PERONEAL MUSCULAR ATROPHY 06/03/2010 THONG CLERK TELEVISION PRODUCTION, DWAINE T 780.79 FATIGUE 06/03/2010 THONG CLERK TELEVISION PRODUCTION, DWAINE T 250.00 DIABETES MELLITUS TYPE 2 06/03/2010 THONG SAAVEDRAN, DWAINE T 356.1 PERONEAL MUSCULAR ATROPHY 06/03/2010 THONG CLERK TELEVISION PRODUCTION, DWAINE T 780.79 FATIGUE 06/03/2010 THONG CLERK TELEVISION PRODUCTION, DWAINE T 250.00 DIABETES MELLITUS TYPE 2 06/03/2010 THONG SAAVEDRAN, DWAINE T 356.1 PERONEAL MUSCULAR ATROPHY 06/03/2010 THONG SAAVEDRAN, DWAINE T 780.79 FATIGUE 06/03/2010 THONG CLERK TELEVISION PRODUCTION, DWAINE T 250.00 DIABETES MELLITUS TYPE 2 [...] DWAINE T 780.79 FATIGUE 06/03/2010 THONG HODGES, DWANIE T 250.00 DIABETES MELLITUS TYPE 2 06/03/2010 THONG SAAVEDRAN, DWAINE T 356.1 PERONEAL MUSCULAR ATROPHY 06/03/2010 THONG SAAVEDRAN, DWAINE T 780.79 FATIGUE 06/03/2010 THONG SAAVEDRAN, DAWINE T 250.00 DIABETES MELLITUS TYPE 2 06/03/2010 THONG CLERK TELEVISION PRODUCTION, DWAINE T 356.1 PERONEAL MUSCULAR ATROPHY 06/03/2010 [...] HODGES, DWAINE T 780.79 FATIGUE 06/03/2010 THONG HDOGES, DWAINE T 250.00 DIABETES MELLITUS TYPE 2 [...] DIABETES MELLITUS TYPE 2 06/03/2010 THONG HODGES, WDAINE T 356.1 PERONEAL MUSCULAR ATROPHY 06/03/2010 THONG HODGES DWAINE T 780.79 FATIGUE 06/03/2010 THONG HODGES DWAINE T 250.00 DIABETES MELLITUS TYPE 2 06/03/2010 THONG HODGES DWAINE T 356.1 PERONEAL MUSCULAR ATROPHY 06/03/2010 THONG HODGES DWAINE T 780.79 FATIGUE 06/03/2010 THONG HODGES DWAINE T 250.00 DIABETES MELLITUS TYPE 2 06/03/2010 THONG HODGES DWAINE T 356.1 PERONEAL MUSCULAR ATROPHY 06/03/2010 THONG CLERK TELEVISION PRODUCTION, DWAINE T 780.79 FATIGUE 06/03/2010 THONG HODGES, DWAINE T 250.00 DIABETES MELLITUS TYPE 2 06/03/2010 TOHNG HODGES, DWAINE T 356.1 PERONEAL MUSCULAR ATROPHY 06/03/2010 THONG HODGES, DWAINE T 780.79 FATIGUE 06/03/2010 NEIDA TALBOT MD 250.00 DIABETES MELLITUS TYPE 2 06/03/2010 NEIDA TALBOT MD 356.1 PERONEAL MUSCULAR ATROPHY 06/03/2010 NEIDA TALBOT MD 780.79 FATIGUE 06/03/2010 THONG HODGES, DWIANE T 250.00 DIABETES MELLITUS TYPE 2 06/03/2010 THONG HOGDES DWAINE T 356.1 PERONEAL MUSCULAR ATROPHY 06/03/2010 [...] 250.00 DIABETES MELLITUS TYPE 2 06/03/2010 THONG CLERK TELEVISION PRODUCTION, DWAINE T 356.1 PERONEAL MUSCULAR ATROPHY 06/03/2010 [...] HODGES DWAINE T 780.79 FATIGUE 06/03/2010 THONG CLERK TELEVISION PRODUCTION, DWAINE T 250.00 DIABETES MELLITUS TYPE 2 [...] MD 268.9 VITAMIN D DEFICIENCY 06/28/2010 THONG CLERK TELEVISION PRODUCTION, DWAINE T 268.9 VITAMIN D DEFICIENCY 06/28/2010 THONG CLERK TELEVISION PRODUCTION DWAINE T 268.9 VITAMIN D DEFICIENCY 06/28/2010 THONG CLERK TELEVISION PRODUCTION DWAINE T 268.9 VITAMIN D DEFICIENCY 06/28/2010 THONG CLERK TELEVISION PRODUCTION, DWAINE T 268.9 VITAMIN D DEFICIENCY 06/28/2010 THONG CLERK TELEVISION PRODUCTION, DWAINE T 268.9 VITAMIN D DEFICIENCY 06/28/2010 THONG CLERK TELEVISION PRODUCTION, DWAINE T 268.9 VITAMIN D DEFICIENCY 06/28/2010 THONG CLERK TELEVISION PRODUCTION DWAINE T 268.9 VITAMIN D DEFICIENCY 06/28/2010 THONG CLERK TELEVISION PRODUCTION DWAINE T 268.9 VITAMIN D DEFICIENCY 06/28/2010 RAYMOND MORRISON, YE Robles 268.9 VITAMIN D DEFICIENCY 06/28/2010 THONG CLERK TELEVISION PRODUCTION DWAINE T 268.9 VITAMIN D DEFICIENCY 06/28/2010 [...] K 268.9 VITAMIN D DEFICIENCY 06/28/2010 DWAINE BENTIO APRN T 268.9 VITAMIN D DEFICIENCY 06/28/2010 [...] 272.4 HYPERLIPIDEMIA 07/02/2010 272.4 HYPERLIPIDEMIA 07/02/2010 THONG CLERK TELEVISION PRODUCTION, DWAINE T 272.4 HYPERLIPIDEMIA 07/02/2010 272.4 HYPERLIPIDEMIA 07/02/2010 272.4 HYPERLIPIDEMIA 07/02/2010 272.4 HYPERLIPIDEMIA 07/02/2010 272.4 HYPERLIPIDEMIA 07/02/2010 272.4 HYPERLIPIDEMIA 07/02/2010 272.4 HYPERLIPIDEMIA 07/02/2010 272.4 HYPERLIPIDEMIA 07/02/2010 272.4 HYPERLIPIDEMIA 07/02/2010 272.4 HYPERLIPIDEMIA 07/02/2010 272.4 HYPERLIPIDEMIA 07/02/2010 272.4 HYPERLIPIDEMIA 07/02/2010 THONG CLERK TELEVISION PRODUCTION, DWAINE T 272.4 HYPERLIPIDEMIA 07/02/2010 THONG CLERK TELEVISION PRODUCTION, DWAINE T 272.4 HYPERLIPIDEMIA 07/02/2010 NEIDA TALBOT MD 272.4 HYPERLIPIDEMIA 07/02/2010 THONG CLERK TELEVISION PRODUCTION, DWAINE T 272.4 HYPERLIPIDEMIA 07/02/2010 NEIDA TALBOT MD 272.4 HYPERLIPIDEMIA 07/02/2010 THONG CLERK TELEVISION PRODUCTION, DWAINE T 272.4 HYPERLIPIDEMIA 07/02/2010 NEIDA TALBOT MD 272.4 HYPERLIPIDEMIA 07/02/2010 THONG CLERK TELEVISION PRODUCTION, DWAINE T 272.4 HYPERLIPIDEMIA 07/02/2010 THONG CLERK TELEVISION PRODUCTION, DWAINE T 272.4 HYPERLIPIDEMIA 07/02/2010 THONG CLERK TELEVISION PRODUCTION, DWAINE T 272.4 HYPERLIPIDEMIA 07/02/2010 THONG CLERK TELEVISION PRODUCTION, DWAINE T 272.4 HYPERLIPIDEMIA 07/02/2010 THONG CLERK TELEVISION PRODUCTION, DWAINE T 272.4 HYPERLIPIDEMIA 07/02/2010 THONG CLERK TELEVISION PRODUCTION, DWAINE T 272.4 HYPERLIPIDEMIA 07/02/2010 THONG CLERK TELEVISION PRODUCTION, DWAINE T 272.4 HYPERLIPIDEMIA 07/02/2010 THONG CLERK TELEVISION PRODUCTION, DWAINE T 272.4 HYPERLIPIDEMIA 07/02/2010 YE ANDRADE MD 272.4 HYPERLIPIDEMIA 07/02/2010 THONG CLERK TELEVISION PRODUCTION, DWAINE T 272.4 HYPERLIPIDEMIA 07/02/2010 THONG CLERK TELEVISION PRODUCTION, DWAINE T 272.4 HYPERLIPIDEMIA 07/02/2010 THONG CLERK TELEVISION PRODUCTION, DWAINE T 272.4 HYPERLIPIDEMIA 07/02/2010 THONG CLERK TELEVISION PRODUCTION, DWAINE T 272.4 HYPERLIPIDEMIA 07/02/2010 THONG CLERK TELEVISION PRODUCTION, DWAINE T 272.4 HYPERLIPIDEMIA 07/02/2010 THONG CLERK TELEVISION PRODUCTION, DWAINE T 272.4 HYPERLIPIDEMIA 07/02/2010 THONG CLERK TELEVISION PRODUCTION, DWAINE T 272.4 HYPERLIPIDEMIA 07/02/2010 THONG CLERK TELEVISION PRODUCTION, DWAINE T 272.4 HYPERLIPIDEMIA 07/02/2010 THONG CLERK TELEVISION PRODUCTION, DWAINE T 272.4 HYPERLIPIDEMIA 07/02/2010 NEIDA TALBOT MD 272.4 HYPERLIPIDEMIA 07/02/2010 THONG CLERK TELEVISION PRODUCTION, DWAINE T 272.4 HYPERLIPIDEMIA 07/02/2010 THONG CLERK TELEVISION PRODUCTION, DWAINE T 272.4 HYPERLIPIDEMIA 07/02/2010 THONG CLERK TELEVISION PRODUCTION, DWAINE T 272.4 HYPERLIPIDEMIA 07/02/2010 THONG CLERK TELEVISION PRODUCTION, DWAINE T 272.4 HYPERLIPIDEMIA 07/02/2010 THONG CLERK TELEVISION PRODUCTION, DWAINE T 272.4 HYPERLIPIDEMIA 07/02/2010 THONG CLERK TELEVISION PRODUCTION, DWAINE T 272.4 HYPERLIPIDEMIA 07/02/2010 THONG CLERK TELEVISION PRODUCTION, DWAINE T 272.4 HYPERLIPIDEMIA 07/02/2010 NEIDA TALBOT MD 272.4 HYPERLIPIDEMIA 07/02/2010 272.4 HYPERLIPIDEMIA 07/02/2010 THONG CLERK TELEVISION PRODUCTION, DWAINE T 272.4 HYPERLIPIDEMIA 07/02/2010 THONG CLERK TELEVISION PRODUCTION, DWAINE T 272.4 HYPERLIPIDEMIA 07/02/2010 THONG CLERK TELEVISION PRODUCTION, DWAINE T 272.4 HYPERLIPIDEMIA 07/02/2010 THONG CLERK TELEVISION PRODUCTION, DWAINE T 272.4 HYPERLIPIDEMIA 07/02/2010 THONG CLERK TELEVISION PRODUCTION, DWAINE T 272.4 HYPERLIPIDEMIA 07/02/2010 NEIDA TALBOT MD 272.4 HYPERLIPIDEMIA 07/02/2010 THONG CLERK TELEVISION PRODUCTION, DWAINE T 272.4 HYPERLIPIDEMIA 07/02/2010 THONG CLERK TELEVISION PRODUCTION, DWAINE T 272.4 HYPERLIPIDEMIA 07/02/2010 PRICE DO, GILBERTO K 272.4 HYPERLIPIDEMIA 07/02/2010 THONG CLERK TELEVISION PRODUCTION, DWAINE T 272.4 HYPERLIPIDEMIA 07/02/2010 THONG CLERK TELEVISION PRODUCTION, DWAINE T 272.4 HYPERLIPIDEMIA 07/02/2010 THONG CLERK TELEVISION PRODUCTION, DWAINE T 272.4 HYPERLIPIDEMIA 07/02/2010 THONG CLERK TELEVISION PRODUCTION, DWAINE T 272.4 HYPERLIPIDEMIA 07/02/2010 THONG CLERK TELEVISION PRODUCTION, DWAINE T 272.4 HYPERLIPIDEMIA 07/02/2010 PRICE DO, GILBERTO K 272.4 HYPERLIPIDEMIA 07/02/2010 THONG CLERK TELEVISION PRODUCTION, DWAINE T 272.4 HYPERLIPIDEMIA 07/02/2010 THONG CLERK TELEVISION PRODUCTION, DWAINE T 272.4 HYPERLIPIDEMIA 07/02/2010 THONG CLERK TELEVISION PRODUCTION, DWAINE T 272.4 HYPERLIPIDEMIA 07/02/2010 THONG CLERK TELEVISION PRODUCTION, DWAINE T 272.4 HYPERLIPIDEMIA 07/02/2010 THONG CLERK TELEVISION PRODUCTION, DWAINE T 272.4 HYPERLIPIDEMIA 07/02/2010 THONG CLERK TELEVISION PRODUCTION, DWAINE T 272.4 HYPERLIPIDEMIA 07/02/2010 THONG CLERK TELEVISION PRODUCTION, DWAINE T 272.4 HYPERLIPIDEMIA 07/02/2010 THONG CLERK TELEVISION PRODUCTION, DWAINE T 272.4 HYPERLIPIDEMIA 07/02/2010 THONG CLERK TELEVISION PRODUCTION, DWAINE T 272.4 HYPERLIPIDEMIA 07/02/2010 DWAINE BENITO APRN 272.4 HYPERLIPIDEMIA 08/07/2010 DWAINE BENITO APRN 707.05 CHRONIC CUTANEOUS [...] CHRONIC CUTANEOUS ULCER DECUBITUS BUTTOCK 08/07/2010 DWAINE BENTIO APRN V58.31 WOUND DRESSING 08/07/2010 NEIDA TALBOT [...] TALBOT MD V58.31 WOUND DRESSING 08/07/2010 THONG CLERK TELEVISION PRODUCTION, DWAINE T 707.05 CHRONIC CUTANEOUS ULCER DECUBITUS [...] CHRONIC CUTANEOUS ULCER DECUBITUS BUTTOCK 08/07/2010 THONG CLERK TELEVISION PRODUCTION, DWAINE T V58.31 WOUND DRESSING 08/07/2010 THONG [...] DWAINE T V58.31 WOUND DRESSING 08/07/2010 GILBERTO RPICE DO K 707.05 CHRONIC CUTANEOUS ULCER DECUBITUS [...] NEIDA TALBOT MD 338.29 CHRONIC PAIN 08/14/2010 THNOG HODGES DWAINE T 300.00 anxiety 08/14/2010 THONG [...] HODGES DWAINE T 300.00 anxiety 08/14/2010 THONG CLERK TELEVISION PRODUCTION, DWAINE T 338.29 CHRONIC PAIN 08/14/2010 THONG CLERK TELEVISION PRODUCTION, DWAINE T 300.00 anxiety 08/14/2010 THONG CLERK TELEVISION PRODUCTION, DWAINE T 338.29 CHRONIC PAIN 08/14/2010 THONG CLERK TELEVISION PRODUCTION, DWAINE T 300.00 anxiety 08/14/2010 THONG CLERK TELEVISION PRODUCTION, DWAINE T 338.29 CHRONIC PAIN 08/14/2010 YE ANDRADE MD 300.00 anxiety 08/14/2010 YE ANDRADE MD 338.29 CHRONIC PAIN 08/14/2010 THONG CLERK TELEVISION PRODUCTION, DWAINE T 300.00 anxiety 08/14/2010 THONG CLERK TELEVISION PRODUCTION, DWAINE T 338.29 CHRONIC PAIN 08/14/2010 THONG CLERK TELEVISION PRODUCTION, DWAINE T 300.00 anxiety 08/14/2010 THONG SAAVEDRAN, DWAINE T 338.29 CHRONIC PAIN 08/14/2010 THONG SAAVEDRAN, DWAINE T 300.00 anxiety 08/14/2010 THONG HODGES DWAINE T 338.29 CHRONIC PAIN 08/14/2010 THONG HODGES, DWAINE T 300.00 anxiety 08/14/2010 THONG SAAVEDRAN DWAINE T 338.29 CHRONIC PAIN 08/14/2010 THONG CLERK TELEVISION PRODUCTION, DWAINE T 300.00 anxiety 08/14/2010 THONG CLERK TELEVISION PRODUCTION, DWAINE T 338.29 CHRONIC PAIN 08/14/2010 THONG CLERK TELEVISION PRODUCTION, DWAINE T 300.00 anxiety 08/14/2010 THONG CLERK TELEVISION PRODUCTION, DWAINE T 338.29 CHRONIC PAIN 08/14/2010 THONG CLERK TELEVISION PRODUCTION, DWAINE T 300.00 anxiety 08/14/2010 THONG CLERK TELEVISION PRODUCTION, DWAINE T 338.29 CHRONIC PAIN 08/14/2010 THONG HODGES, DWAINE T 300.00 anxiety 08/14/2010 THONG HODGES DWAINE T 338.29 CHRONIC PAIN 08/14/2010 THONG CLERK TELEVISION PRODUCTION, DWAINE T 300.00 anxiety 08/14/2010 THONG CLERK TELEVISION PRODUCTION, DWAINE T 338.29 CHRONIC PAIN 08/14/2010 NEIDA [...] DWAINE T 338.29 CHRONIC PAIN 08/14/2010 THONG CLERK TELEVISION PRODUCTION, DWAINE T 300.00 anxiety 08/14/2010 THONG CLERK TELEVISION PRODUCTION, DWAINE T 338.29 CHRONIC PAIN 08/14/2010 THONG CLERK TELEVISION PRODUCTION, DWAINE T 300.00 anxiety 08/14/2010 THONG CLERK TELEVISION PRODUCTION, DWAINE T 338.29 CHRONIC PAIN 08/14/2010 THONG CLERK TELEVISION PRODUCTION, DWAINE T 300.00 anxiety 08/14/2010 THONG CLERK TELEVISION PRODUCTION, DWAINE T 338.29 CHRONIC PAIN 08/14/2010 THONG CLERK TELEVISION PRODUCTION, DWAINE T 300.00 anxiety 08/14/2010 THONG CLERK TELEVISION PRODUCTION, DWAINE T 338.29 CHRONIC PAIN 08/14/2010 PRICE DO, GILBERTO K 300.00 anxiety 08/14/2010 PRICE DO, GILBERTO K 338.29 CHRONIC PAIN 08/14/2010 THONG CLERK TELEVISION PRODUCTION, DWAINE T 300.00 anxiety 08/14/2010 THONG CLERK TELEVISION PRODUCTION, DWAINE T 338.29 CHRONIC PAIN 08/14/2010 THONG CLERK TELEVISION PRODUCTION, DWAINE T 300.00 anxiety 08/14/2010 THONG CLERK TELEVISION PRODUCTION, DWAINE T 338.29 CHRONIC PAIN 08/14/2010 THONG CLERK TELEVISION PRODUCTION, DWAINE T 300.00 anxiety 08/14/2010 THONG CLERK TELEVISION PRODUCTION, DWAINE T 338.29 CHRONIC PAIN 08/14/2010 THONG CLERK TELEVISION PRODUCTION, DWAINE T 300.00 anxiety 08/14/2010 THONG CLERK TELEVISION PRODUCTION, DWAINE T 338.29 CHRONIC PAIN 08/14/2010 THONG CLERK TELEVISION PRODUCTION, DWAINE T 300.00 anxiety 08/14/2010 THONG CLERK TELEVISION PRODUCTION, DWAINE T 338.29 CHRONIC PAIN 08/14/2010 THONG CLERK TELEVISION PRODUCTION, DWAINE T 300.00 anxiety 08/14/2010 THONG CLERK TELEVISION PRODUCTION, DWAINE T 338.29 CHRONIC PAIN 08/14/2010 THONG CLERK TELEVISION PRODUCTION, DWAINE T 300.00 anxiety 08/14/2010 THONG CLERK TELEVISION PRODUCTION, DWAINE T 338.29 CHRONIC PAIN 08/14/2010 THONG CLERK TELEVISION PRODUCTION, DWAINE T 300.00 anxiety 08/14/2010 THONG CLERK TELEVISION PRODUCTION, DWAINE T 338.29 CHRONIC PAIN 08/14/2010 THONG CLERK TELEVISION PRODUCTION, DWAINE T 300.00 anxiety 08/14/2010 THONG CLERK TELEVISION PRODUCTION, DWAINE T 338.29 CHRONIC PAIN 08/14/2010 THONG CLERK TELEVISION PRODUCTION, DWAINE T 300.00 anxiety 08/14/2010 THONG CLERK TELEVISION PRODUCTION, DWAINE T 338.29 CHRONIC PAIN 09/17/2010 Ot [...] T 599.0 URINARY TRACT INFECTION 09/21/2010 THONG CLERK TELEVISION PRODUCTION, DWAINE T 599.0 URINARY TRACT INFECTION 09/21/2010 THONG CLERK TELEVISION PRODUCTION, DWAINE T 599.0 URINARY TRACT INFECTION 09/21/2010 THONG CLERK TELEVISION PRODUCTION, DWAINE T 599.0 URINARY TRACT INFECTION 09/21/2010 THONG CLERK TELEVISION PRODUCTION, DWAINE T 599.0 URINARY TRACT INFECTION 09/21/2010 RAYMOND MORRISON, YE M 599.0 URINARY TRACT INFECTION 09/21/2010 THONG CLERK TELEVISION PRODUCTION, DWAINE T 599.0 URINARY TRACT INFECTION 09/21/2010 THONG CLERK TELEVISION PRODUCTION, DWAINE T 599.0 URINARY TRACT INFECTION 09/21/2010 THONG CLERK TELEVISION PRODUCTION, DWAINE T 599.0 URINARY TRACT INFECTION 09/21/2010 THONG CLERK TELEVISION PRODUCTION, DWAINE T 599.0 URINARY TRACT INFECTION 09/21/2010 THONG CLERK TELEVISION PRODUCTION, DWAINE T 599.0 URINARY TRACT INFECTION 09/21/2010 THONG CLERK TELEVISION PRODUCTION, DWAINE T 599.0 URINARY TRACT INFECTION 09/21/2010 THONG CLERK TELEVISION PRODUCTION, DWAINE T 599.0 URINARY TRACT INFECTION 09/21/2010 THONG CLERK TELEVISION PRODUCTION, DWAINE T 599.0 URINARY TRACT INFECTION 09/21/2010 THONG CLERK TELEVISION PRODUCTION, DWAINE T 599.0 URINARY TRACT INFECTION 09/21/2010 ANTIONE MORRISON, NEIDA 599.0 URINARY TRACT INFECTION 09/21/2010 THONG CLERK TELEVISION PRODUCTION, DWAINE T 599.0 URINARY TRACT INFECTION 09/21/2010 THONG CLERK TELEVISION PRODUCTION, DWAINE T 599.0 URINARY TRACT INFECTION 09/21/2010 THONG CLERK TELEVISION PRODUCTION, DWAINE T 599.0 URINARY TRACT INFECTION 09/21/2010 THONG CLERK TELEVISION PRODUCTION, DWAINE T 599.0 URINARY TRACT INFECTION 09/21/2010 THONG CLERK TELEVISION PRODUCTION, DWAINE T 599.0 URINARY TRACT INFECTION 09/21/2010 THONG CLERK TELEVISION PRODUCTION, DWAINE T 599.0 URINARY TRACT INFECTION 09/21/2010 THONG CLERK TELEVISION PRODUCTION, DWAINE T 599.0 URINARY TRACT INFECTION 09/21/2010 NEIDA TALBOT MD 599.0 URINARY TRACT INFECTION 09/21/2010 599.0 URINARY TRACT INFECTION 09/21/2010 THONG CLERK TELEVISION PRODUCTION, DWAINE T 599.0 URINARY TRACT INFECTION 09/21/2010 THONG CLERK TELEVISION PRODUCTION, DWAINE T 599.0 URINARY TRACT INFECTION 09/21/2010 THONG CLERK TELEVISION PRODUCTION, DWAINE T 599.0 URINARY TRACT INFECTION 09/21/2010 THONG CLERK TELEVISION PRODUCTION, DWAINE T 599.0 URINARY TRACT INFECTION 09/21/2010 THONG HODGES, DWAINE T 599.0 URINARY TRACT INFECTION 09/21/2010 NEIDA TALBOT MD 599.0 URINARY TRACT INFECTION 09/21/2010 THONG CLERK TELEVISION PRODUCTION, DWAINE T 599.0 URINARY TRACT INFECTION 09/21/2010 THONG CLERK TELEVISION PRODUCTION, DWAINE T 599.0 URINARY TRACT INFECTION 09/21/2010 PRICE DO, GILBERTO K 599.0 URINARY TRACT INFECTION 09/21/2010 THONG CLERK TELEVISION PRODUCTION, DWAINE T 599.0 URINARY TRACT INFECTION 09/21/2010 THONG CLERK TELEVISION PRODUCTION, DWAINE T 599.0 URINARY TRACT INFECTION 09/21/2010 THONG CLERK TELEVISION PRODUCTION, DWAINE T 599.0 URINARY TRACT INFECTION 09/21/2010 THONG CLERK TELEVISION PRODUCTION, DWAINE T 599.0 URINARY TRACT INFECTION 09/21/2010 THONG CLERK TELEVISION PRODUCTION, DWAINE T 599.0 URINARY TRACT INFECTION 09/21/2010 PRICE DO, GILBERTO K 599.0 URINARY TRACT INFECTION 09/21/2010 THONG CLERK TELEVISION PRODUCTION, DWAINE T 599.0 URINARY TRACT INFECTION 09/21/2010 THONG CLERK TELEVISION PRODUCTIONDWAINE T 599.0 URINARY TRACT INFECTION 09/21/2010 THONG CLERK TELEVISION PRODUCTION, DWAINE T 599.0 URINARY TRACT INFECTION 09/21/2010 THONG CLERK TELEVISION PRODUCTION, DWAINE T 599.0 URINARY TRACT INFECTION 09/21/2010 THONG CLERK TELEVISION PRODUCTION, DWAINE T 599.0 URINARY TRACT INFECTION 09/21/2010 THONG CLERK TELEVISION PRODUCTION, DWAINE T 599.0 URINARY TRACT INFECTION 09/21/2010 THONG CLERK TELEVISION PRODUCTION, DWAINE T 599.0 URINARY TRACT INFECTION 09/21/2010 THONG CLERK TELEVISION PRODUCTION, DWAINE T 599.0 URINARY TRACT INFECTION 09/21/2010 THONG CLERK TELEVISION PRODUCTION, DWAINE T 599.0 URINARY TRACT INFECTION 09/21/2010 THONG CLERK TELEVISION PRODUCTION, DWAINE T 599.0 URINARY TRACT INFECTION 10/07/2010 [...] AND ABSCESS OF UNSPECIFIED SITES 11/08/2010 THONG CLERK TELEVISION PRODUCTION, DWAINE T 682.9 CELLULITIS AND ABSCESS OF [...] (3 YRS AND ABOVE, IM) 01/06/2011 THONG CLERK TELEVISION PRODUCTION, DWAINE T V04.81 FLU DX (3 YRS AND ABOVE, IM) 01/06/2011 THOGN CLERK TELEVISION PRODUCTION, DWAINE T V04.81 FLU DX (3 YRS AND ABOVE, IM) 01/06/2011 THONG CLERK TELEVISION PRODUCTION, DWAINE T V04.81 FLU DX (3 YRS [...] (3 YRS AND ABOVE, IM) 01/06/2011 THONG SAVAEDRAN, DWAINE T V04.81 FLU DX (1 YRS [...] MD 780.4 DIZZINESS AND GIDDINESS 03/07/2011 THONG CLERK TELEVISION PRODUCTION, DWAINE T 780.4 DIZZINESS AND GIDDINESS 03/07/2011 THONG HODGES DWAINE T 780.4 DIZZINESS AND GIDDINESS 03/07/2011 THONG OHDGES DWAINE T 780.4 DIZZINESS AND GIDDINESS 03/07/2011 [...] T 780.4 DIZZINESS AND GIDDINESS 03/07/2011 THONG CLERK TELEVISION PRODUCTION DWAINE T 780.4 DIZZINESS AND GIDDINESS 03/07/2011 THONG CLERK TELEVISION PRODUCTIONDWAINE Arredondo T 780.4 DIZZINESS AND GIDDINESS 03/07/2011 THONG CLERK TELEVISION PRODUCTIONDWAINE T 780.4 DIZZINESS AND GIDDINESS 03/07/2011 DWAINE BENITO APRN T 780.4 DIZZINESS AND GIDDINESS 03/07/2011 NEIDA TALBOT MD 780.4 DIZZINESS AND GIDDINESS 03/07/2011 780.4 DIZZINESS AND GIDDINESS 03/07/2011 THONG CLERK TELEVISION PRODUCTIONDWAINE Arredondo T 780.4 DIZZINESS AND GIDDINESS 03/07/2011 [...] BENITO APRN T 564.00 CONSTIPATION 07/23/2012 THONG CLERK TELEVISION PRODUCTION, DWAINE T 564.00 CONSTIPATION 07/23/2012 THONG CLERK TELEVISION PRODUCTION, DWAINE T 564.00 CONSTIPATION 07/23/2012 THONG CLERK TELEVISION PRODUCTION, DWAINE T 564.00 CONSTIPATION 07/23/2012 THONG CLERK TELEVISION PRODUCTION, DWAINE T 564.00 CONSTIPATION 07/23/2012 THONG CLERK TELEVISION PRODUCTION, DWAINE T 564.00 CONSTIPATION 07/23/2012 YE ANDRADE MD 564.00 CONSTIPATION 07/23/2012 THONG CLERK TELEVISION PRODUCTION, DWAINE T 564.00 CONSTIPATION 07/23/2012 THONG CLERK TELEVISION PRODUCTION, DWAINE T 564.00 CONSTIPATION 07/23/2012 THONG CLERK TELEVISION PRODUCTION, DWAINE T 564.00 CONSTIPATION 07/23/2012 THONG CLERK TELEVISION PRODUCTION, DWAINE T 564.00 CONSTIPATION 07/23/2012 THONG CLERK TELEVISION PRODUCTION, DWAINE T 564.00 CONSTIPATION 07/23/2012 THONG CLERK TELEVISION PRODUCTION, DWAINE T 564.00 CONSTIPATION 07/23/2012 THONG CLERK TELEVISION PRODUCTION, DWAINE T 564.00 CONSTIPATION 07/23/2012 THONG CLERK TELEVISION PRODUCTION, DWAINE T 564.00 CONSTIPATION 07/23/2012 THONG CLERK TELEVISION PRODUCTION, DWAINE T 564.00 CONSTIPATION 07/23/2012 NEIDA TALBOT MD 564.00 CONSTIPATION 07/23/2012 THONG CLERK TELEVISION PRODUCTION, DWAINE T 564.00 CONSTIPATION 07/23/2012 THONG CLERK TELEVISION PRODUCTION, DWAINE T 564.00 CONSTIPATION 07/23/2012 THONG CLERK TELEVISION PRODUCTION, DWAINE T 564.00 CONSTIPATION 07/23/2012 THONG CLERK TELEVISION PRODUCTION, DWAINE T 564.00 CONSTIPATION 07/23/2012 THONG CLERK TELEVISION PRODUCTION, DWAINE T 564.00 CONSTIPATION 07/23/2012 THONG CLERK TELEVISION PRODUCTION, DWAINE T 564.00 CONSTIPATION 07/23/2012 THONG CLERK TELEVISION PRODUCTION, DWAINE T 564.00 CONSTIPATION 07/23/2012 NEIDA TALBOT MD 564.00 CONSTIPATION 07/23/2012 564.00 CONSTIPATION 07/23/2012 THONG CLERK TELEVISION PRODUCTION, DWAINE T 564.00 CONSTIPATION 07/23/2012 THONG CLERK TELEVISION PRODUCTION, DWAINE T 564.00 CONSTIPATION 07/23/2012 THONG CLERK TELEVISION PRODUCTION, DWAINE T 564.00 CONSTIPATION 07/23/2012 THONG CLERK TELEVISION PRODUCTION, DWAINE T 564.00 CONSTIPATION 07/23/2012 THONG SAAVEDRAN, DWAINE T 564.00 CONSTIPATION 07/23/2012 NEIDA TALBOT MD 564.00 CONSTIPATION 07/23/2012 THONG CLERK TELEVISION PRODUCTION, DWAINE T 564.00 CONSTIPATION 07/23/2012 THONG CLERK TELEVISION PRODUCTION, DWAINE T 564.00 CONSTIPATION 07/23/2012 PRICE DO, GILBERTO K 564.00 CONSTIPATION 07/23/2012 THONG CLERK TELEVISION PRODUCTION, DWAINE T 564.00 CONSTIPATION 07/23/2012 THONG CLERK TELEVISION PRODUCTION, DWAINE T 564.00 CONSTIPATION 07/23/2012 THONG CLERK TELEVISION PRODUCTION, DWAINE T 564.00 CONSTIPATION 07/23/2012 THONG CLERK TELEVISION PRODUCTION, DWAINE T 564.00 CONSTIPATION 07/23/2012 PRICE DO, GILBERTO K 564.00 CONSTIPATION 07/23/2012 THONG CLERK TELEVISION PRODUCTION, DWAINE T 564.00 CONSTIPATION 07/23/2012 THONG CLERK TELEVISION PRODUCTION, DWAINE T 564.00 CONSTIPATION 07/23/2012 THONG CLERK TELEVISION PRODUCTION, DWAINE T 564.00 CONSTIPATION 07/23/2012 THONG CLERK TELEVISION PRODUCTION, DWAINE T 564.00 CONSTIPATION 07/23/2012 THONG CLERK TELEVISION PRODUCTION, DWAINE T 564.00 CONSTIPATION 07/23/2012 THONG CLERK TELEVISION PRODUCTION, DWAINE T 564.00 CONSTIPATION 07/23/2012 THONG CLERK TELEVISION PRODUCTION, DWAINE T 564.00 CONSTIPATION 07/23/2012 THONG CLERK TELEVISION PRODUCTION, DWAINE T 564.00 CONSTIPATION 07/23/2012 THONG CLERK TELEVISION PRODUCTION, DWAINE T 564.00 CONSTIPATION 07/23/2012 THONG CLERK TELEVISION PRODUCTION, DWAINE T 564.00 CONSTIPATION 08/11/2012 E879.6 URINARY [...] MISADVENTURE AT TIME OF PROCED 08/11/2012 THONG CLERK TELEVISION PRODUCTION, DWAINE T E879.6 URINARY CATHETERIZATION THE CAUSE [...] NEIDA TALBOT MD 724.3 SCIATICA 09/13/2012 THONG CLERK TELEVISION PRODUCTION, DWAINE T 724.3 SCIATICA 09/13/2012 THONG CLERK TELEVISION PRODUCTION, DWAINE T 724.3 SCIATICA 09/13/2012 THONG CLERK TELEVISION PRODUCTION, DWAINE T 724.3 SCIATICA 09/13/2012 THONG CLERK TELEVISION PRODUCTION, DWAINE T 724.3 SCIATICA 09/13/2012 THONG CLERK TELEVISION PRODUCTION, DWAINE T 724.3 SCIATICA 09/13/2012 THONG CLERK TELEVISION PRODUCTION, DWAINE T 724.3 SCIATICA 09/13/2012 THONG CLERK TELEVISION PRODUCTION, DWAINE T 724.3 SCIATICA 09/13/2012 THONG CLERK TELEVISION PRODUCTION, DWAINE T 724.3 SCIATICA 09/13/2012 RAYMOND MORRISON, YE Robles 724.3 SCIATICA 09/13/2012 THONG CLERK TELEVISION PRODUCTION, DWAINE T 724.3 SCIATICA 09/13/2012 THONG CLERK TELEVISION PRODUCTION, DWAINE T 724.3 SCIATICA 09/13/2012 THONG CLERK TELEVISION PRODUCTION, DWAINE T 724.3 SCIATICA 09/13/2012 THONG SAAVEDRAN, [...] SAAVEDRAN, DWAINE T 724.3 SCIATICA 09/13/2012 THONG CLERK TELEVISION PRODUCTION, DWAINE T 724.3 SCIATICA 09/13/2012 THONG CLERK TELEVISION PRODUCTION, DWAINE T 724.3 SCIATICA 09/13/2012 THONG SAAVEDRAN, [...] DO, GILBERTO K 724.3 SCIATICA 09/13/2012 THONG HODGES, DWAINE T [...] MORRISON, NEIDA V76.12 MAMMOGRAM SCREENING 11/30/2012 THONG CLERK TELEVISION PRODUCTION, DWAINE T V76.12 MAMMOGRAM SCREENING 11/30/2012 THONG CLERK TELEVISION PRODUCTION, DWAINE T V76.12 MAMMOGRAM SCREENING 11/30/2012 THONG CLERK TELEVISION PRODUCTION, DWAINE T V76.12 MAMMOGRAM SCREENING 11/30/2012 THONG CLERK TELEVISION PRODUCTION, DWAINE T V76.12 MAMMOGRAM SCREENING 11/30/2012 THONG CLERK TELEVISION PRODUCTION, DWAINE T V76.12 MAMMOGRAM SCREENING 11/30/2012 THONG CLERK TELEVISION PRODUCTION, DWAINE T V76.12 MAMMOGRAM SCREENING 11/30/2012 THONG CLERK TELEVISION PRODUCTION, DWAINE T V76.12 MAMMOGRAM SCREENING 11/30/2012 THONG CLERK TELEVISION PRODUCTION, DWAINE T V76.12 MAMMOGRAM SCREENING 11/30/2012 RAYMOND MORRISON, YE Robles V76.12 MAMMOGRAM SCREENING 11/30/2012 THONG CLERK TELEVISION PRODUCTION, DWAINE T V76.12 MAMMOGRAM SCREENING 11/30/2012 THONG CLERK TELEVISION PRODUCTION, DWAINE T V76.12 MAMMOGRAM SCREENING 11/30/2012 THONG CLERK TELEVISION PRODUCTION, DWAINE T V76.12 MAMMOGRAM SCREENING 11/30/2012 THONG CLERK TELEVISION PRODUCTION, DWAINE T V76.12 MAMMOGRAM SCREENING 11/30/2012 THONG CLERK TELEVISION PRODUCTION, DWAINE T V76.12 MAMMOGRAM SCREENING 11/30/2012 THONG CLERK TELEVISION PRODUCTION, DWAINE T V76.12 MAMMOGRAM SCREENING 11/30/2012 THONG CLERK TELEVISION PRODUCTION, DWAINE T V76.12 MAMMOGRAM SCREENING 11/30/2012 THONG CLERK TELEVISION PRODUCTION, DWAINE T V76.12 MAMMOGRAM SCREENING 11/30/2012 THONG CLERK TELEVISION PRODUCTION, DWAINE T V76.12 MAMMOGRAM SCREENING 11/30/2012 ANTIONE MORRISON, NEIDA V76.12 MAMMOGRAM SCREENING 11/30/2012 THONG CLERK TELEVISION PRODUCTION, DWAINE T V76.12 MAMMOGRAM SCREENING 11/30/2012 THONG CLERK TELEVISION PRODUCTION, DWAINE T V76.12 MAMMOGRAM SCREENING 11/30/2012 THONG CLERK TELEVISION PRODUCTION, DWAINE T V76.12 MAMMOGRAM SCREENING 11/30/2012 THONG CLERK TELEVISION PRODUCTION, DWAINE T V76.12 MAMMOGRAM SCREENING 11/30/2012 THONG CLERK TELEVISION PRODUCTION, DWAINE T V76.12 MAMMOGRAM SCREENING 11/30/2012 THONG CLERK TELEVISION PRODUCTION, DWAINE T V76.12 MAMMOGRAM SCREENING 11/30/2012 THONG CLERK TELEVISION PRODUCTION, DWAINE T V76.12 MAMMOGRAM SCREENING 11/30/2012 ANTIONE MORRISON, NEIDA V76.12 MAMMOGRAM SCREENING 11/30/2012 V76.12 MAMMOGRAM SCREENING 11/30/2012 THONG CLERK TELEVISION PRODUCTION, DWAINE T V76.12 MAMMOGRAM SCREENING 11/30/2012 THONG CLERK TELEVISION PRODUCTION, DWAINE T V76.12 MAMMOGRAM SCREENING 11/30/2012 THONG CLERK TELEVISION PRODUCTION, DWAINE T V76.12 MAMMOGRAM SCREENING 11/30/2012 THONG CLERK TELEVISION PRODUCTION, DWAINE T V76.12 MAMMOGRAM SCREENING 11/30/2012 THONG CLERK TELEVISION PRODUCTION, DWAINE T V76.12 MAMMOGRAM SCREENING 11/30/2012 ANTIONE MORRISON, NEIDA V76.12 MAMMOGRAM SCREENING 11/30/2012 THONG CLERK TELEVISION PRODUCTION, DWAINE T V76.12 MAMMOGRAM SCREENING 11/30/2012 THONG CLERK TELEVISION PRODUCTION, DWAINE T V76.12 MAMMOGRAM SCREENING 11/30/2012 PRICE DO, GILBERTO K V76.12 MAMMOGRAM SCREENING 11/30/2012 THONG CLERK TELEVISION PRODUCTION, DWAINE T V76.12 MAMMOGRAM SCREENING 11/30/2012 THONG CLERK TELEVISION PRODUCTION, DWAINE T V76.12 MAMMOGRAM SCREENING 11/30/2012 THONG CLERK TELEVISION PRODUCTION, DWAINE T V76.12 MAMMOGRAM SCREENING 11/30/2012 THONG CLERK TELEVISION PRODUCTION, DWAINE T V76.12 MAMMOGRAM SCREENING 11/30/2012 PRICE DO, GILBERTO K V76.12 MAMMOGRAM SCREENING 11/30/2012 THONG CLERK TELEVISION PRODUCTION, DWAINE T V76.12 MAMMOGRAM SCREENING 11/30/2012 THONG CLERK TELEVISION PRODUCTION, DWAINE T V76.12 MAMMOGRAM SCREENING 11/30/2012 THONG CLERK TELEVISION PRODUCTION, DWAINE T V76.12 MAMMOGRAM SCREENING 11/30/2012 THONG CLERK TELEVISION PRODUCTION, DWAINE T V76.12 MAMMOGRAM SCREENING 11/30/2012 THONG CLERK TELEVISION PRODUCTION, DWAINE T V76.12 MAMMOGRAM SCREENING 11/30/2012 THONG CLERK TELEVISION PRODUCTION, DWAINE T V76.12 MAMMOGRAM SCREENING 11/30/2012 THONG CLERK TELEVISION PRODUCTION, DWAINE T V76.12 MAMMOGRAM SCREENING 11/30/2012 THONG CLERK TELEVISION PRODUCTION, DWAINE T V76.12 MAMMOGRAM SCREENING 11/30/2012 THONG CLERK TELEVISION PRODUCTION, DWAINE T V76.12 MAMMOGRAM SCREENING 11/30/2012 THONG CLERK TELEVISION PRODUCTION, DWAINE T V76.12 MAMMOGRAM SCREENING 01/27/2013 NEIDA TALBOT MD 465.9 UPPER RESPIRATORY INFECTION 01/27/2013 THONG HODGES, DWAINE Rushing 465.9 UPPER RESPIRATORY INFECTION 01/27/2013 HUERTER MD, NEIDA 465.9 UPPER RESPIRATORY INFECTION 01/27/2013 THONG CLERK TELEVISION PRODUCTION, DWAINE T 465.9 UPPER RESPIRATORY INFECTION 01/27/2013 NEIDA TALBOT MD 465.9 UPPER RESPIRATORY INFECTION 01/27/2013 THONG CLERK TELEVISION PRODUCTION, DWAINE T 465.9 UPPER RESPIRATORY INFECTION 01/27/2013 THONG CLERK TELEVISION PRODUCTION, DWAINE T 465.9 UPPER RESPIRATORY INFECTION 01/27/2013 THONG CLERK TELEVISION PRODUCTION, DWAINE T 465.9 UPPER RESPIRATORY INFECTION 01/27/2013 THONG CLERK TELEVISION PRODUCTION, DWAINE T 465.9 UPPER RESPIRATORY INFECTION 01/27/2013 THONG CLERK TELEVISION PRODUCTION, DWAINE T 465.9 UPPER RESPIRATORY INFECTION 01/27/2013 THONG CLERK TELEVISION PRODUCTION, DWAINE T 465.9 UPPER RESPIRATORY INFECTION 01/27/2013 THONG CLERK TELEVISION PRODUCTION, DWAINE T 465.9 UPPER RESPIRATORY INFECTION 01/27/2013 THONG CLERK TELEVISION PRODUCTION, DWAINE T 465.9 UPPER RESPIRATORY INFECTION 01/27/2013 RAYMOND MORRISON, YE Robles 465.9 UPPER RESPIRATORY INFECTION 01/27/2013 THONG CLERK TELEVISION PRODUCTION, DWAINE T 465.9 UPPER RESPIRATORY INFECTION 01/27/2013 THONG CLERK TELEVISION PRODUCTION, DWAINE T 465.9 UPPER RESPIRATORY INFECTION 01/27/2013 THONG CLERK TELEVISION PRODUCTION, DWAINE T 465.9 UPPER RESPIRATORY INFECTION 01/27/2013 THONG CLERK TELEVISION PRODUCTION, DWAINE T 465.9 UPPER RESPIRATORY INFECTION 01/27/2013 THONG CLERK TELEVISION PRODUCTION, DWAINE T 465.9 UPPER RESPIRATORY INFECTION 01/27/2013 THONG CLERK TELEVISION PRODUCTION, DWAINE T 465.9 UPPER RESPIRATORY INFECTION 01/27/2013 THONG CLERK TELEVISION PRODUCTION, DWAINE T 465.9 UPPER RESPIRATORY INFECTION 01/27/2013 THONG CLERK TELEVISION PRODUCTION, DWAINE T 465.9 UPPER RESPIRATORY INFECTION 01/27/2013 THONG CLERK TELEVISION PRODUCTION, DWAINE T 465.9 UPPER RESPIRATORY INFECTION 01/27/2013 NEIDA TALBOT MD 465.9 UPPER RESPIRATORY INFECTION 01/27/2013 THONG CLERK TELEVISION PRODUCTION, DWAINE T 465.9 UPPER RESPIRATORY INFECTION 01/27/2013 THONG CLERK TELEVISION PRODUCTION, DWAINE T 465.9 UPPER RESPIRATORY INFECTION 01/27/2013 THONG CLERK TELEVISION PRODUCTION, DWAINE T 465.9 UPPER RESPIRATORY INFECTION 01/27/2013 THONG CLERK TELEVISION PRODUCTION, DWAINE T 465.9 UPPER RESPIRATORY INFECTION 01/27/2013 THONG CLERK TELEVISION PRODUCTION, DWAINE T 465.9 UPPER RESPIRATORY INFECTION 01/27/2013 THONG CLERK TELEVISION PRODUCTION, DWAINE T 465.9 UPPER RESPIRATORY INFECTION 01/27/2013 THONG CLERK TELEVISION PRODUCTION, DWAINE T 465.9 UPPER RESPIRATORY INFECTION 01/27/2013 NEIDA TALBOT MD 465.9 UPPER RESPIRATORY INFECTION 01/27/2013 465.9 UPPER RESPIRATORY INFECTION 01/27/2013 THONG CLERK TELEVISION PRODUCTION, DWAINE T 465.9 UPPER RESPIRATORY INFECTION 01/27/2013 THONG CLERK TELEVISION PRODUCTION, DWAINE T 465.9 UPPER RESPIRATORY INFECTION 01/27/2013 THONG CLERK TELEVISION PRODUCTION, DWAIEN T 465.9 UPPER RESPIRATORY INFECTION 01/27/2013 THONG CLERK TELEVISION PRODUCTION, DWAINE T 465.9 UPPER RESPIRATORY INFECTION 01/27/2013 THONG CLERK TELEVISION PRODUCTION, DWAINE T 465.9 UPPER RESPIRATORY INFECTION 01/27/2013 NEIDA TALBOT MD 465.9 UPPER RESPIRATORY INFECTION 01/27/2013 THONG CLERK TELEVISION PRODUCTION, DWAINE T 465.9 UPPER RESPIRATORY INFECTION 01/27/2013 THONG CLERK TELEVISION PRODUCTION, DWAINE T 465.9 UPPER RESPIRATORY INFECTION 01/27/2013 PRICE DO, GILBERTO K 465.9 UPPER RESPIRATORY INFECTION 01/27/2013 THONG CLERK TELEVISION PRODUCTION, DWAINE T 465.9 UPPER RESPIRATORY INFECTION 01/27/2013 THONG CLERK TELEVISION PRODUCTION, DWAINE T 465.9 UPPER RESPIRATORY INFECTION 01/27/2013 THONG CLERK TELEVISION PRODUCTION, DWAINE T 465.9 UPPER RESPIRATORY INFECTION 01/27/2013 THONG CLERK TELEVISION PRODUCTION, DWAINE T 465.9 UPPER RESPIRATORY INFECTION 01/27/2013 PRICE DO, GILBERTO K 465.9 UPPER RESPIRATORY INFECTION 01/27/2013 THONG CLERK TELEVISION PRODUCTION, DWAINE T 465.9 UPPER RESPIRATORY INFECTION 01/27/2013 THONG CLERK TELEVISION PRODUCTION, DWAINE T 465.9 UPPER RESPIRATORY INFECTION 01/27/2013 THONG CLERK TELEVISION PRODUCTION, DWAINE T 465.9 UPPER RESPIRATORY INFECTION 01/27/2013 THONG CLERK TELEVISION PRODUCTION, DWAINE T 465.9 UPPER RESPIRATORY INFECTION 01/27/2013 THONG CLERK TELEVISION PRODUCTION, DWAINE T 465.9 UPPER RESPIRATORY INFECTION 01/27/2013 THONG CLERK TELEVISION PRODUCTION, DWAINE T 465.9 UPPER RESPIRATORY INFECTION 01/27/2013 THONG CLERK TELEVISION PRODUCTION, DWAINE T 465.9 UPPER RESPIRATORY INFECTION 01/27/2013 THONG CLERK TELEVISION PRODUCTION, DWAINE T 465.9 UPPER RESPIRATORY INFECTION 01/27/2013 THONG CLERK TELEVISION PRODUCTION, DWAINE T 465.9 UPPER RESPIRATORY INFECTION 01/27/2013 THONG CLERK TELEVISION PRODUCTION, DWAINE T 465.9 UPPER RESPIRATORY INFECTION 06/14/2013 YE ANDRADE MD 355.9 NEUROPATHY 06/14/2013 YE ANDRADE MD 788.1 pain during urination (dysuria) 06/14/2013 DWAINE BENITO APRN T 355.9 NEUROPATHY 06/14/2013 THONG HODGES DWAINE T 788.1 pain during urination (dysuria) 06/14/2013 THONG CLERK TELEVISION PRODUCTION, DWAINE T 355.9 NEUROPATHY 06/14/2013 THONG CLERK TELEVISION PRODUCTION, DWAINE T 788.1 DYSURIA 06/14/2013 THONG CLERK TELEVISION PRODUCTION, DWAINE T 355.9 NEUROPATHY 06/14/2013 THONG CLERK TELEVISION PRODUCTION, DWAINE T 788.1 DYSURIA 06/14/2013 THONG CLERK TELEVISION PRODUCTION, DWAINE T 355.9 NEUROPATHY 06/14/2013 THONG CLERK TELEVISION PRODUCTION, DWAINE T 788.1 DYSURIA 06/14/2013 THONG CLERK TELEVISION PRODUCTION, DWAINE T 355.9 NEUROPATHY 06/14/2013 THONG CLERK TELEVISION PRODUCTION, DWAINE T 788.1 DYSURIA 06/14/2013 THONG CLERK TELEVISION PRODUCTION, DWAINE T 355.9 NEUROPATHY 06/14/2013 THONG CLERK TELEVISION PRODUCTION, DWAINE T 788.1 DYSURIA 06/14/2013 THONG CLERK TELEVISION PRODUCTION, DWAINE T 355.9 NEUROPATHY 06/14/2013 THONG CLERK TELEVISION PRODUCTION, DWAINE T 788.1 DYSURIA 06/14/2013 THONG CLERK TELEVISION PRODUCTION, DWAINE T 355.9 NEUROPATHY 06/14/2013 THONG CLERK TELEVISION PRODUCTION, WDAINE T 788.1 DYSURIA 06/14/2013 THONG CLERK TELEVISION PRODUCTION, DWAINE T 355.9 NEUROPATHY 06/14/2013 THONG CLERK TELEVISION PRODUCTION, DWAINE T 788.1 DYSURIA 06/14/2013 NEIDA TALBOT MD 355.9 NEUROPATHY 06/14/2013 NEIDA TALBOT MD 788.1 DYSURIA 06/14/2013 THONG CLERK TELEVISION PRODUCTION, DWAINE T 355.9 NEUROPATHY 06/14/2013 THONG CLERK TELEVISION PRODUCTION, DWAINE T 788.1 DYSURIA 06/14/2013 THONG CLERK TELEVISION PRODUCTION, DWAINE T 355.9 NEUROPATHY 06/14/2013 THONG CLERK TELEVISION PRODUCTION, DWAINE T 788.1 DYSURIA 06/14/2013 THONG CLERK TELEVISION PRODUCTION, DWAINE T 355.9 NEUROPATHY 06/14/2013 THONG CLERK TELEVISION PRODUCTION, DWAINE T 788.1 DYSURIA 06/14/2013 THONG CLERK TELEVISION PRODUCTION, DWAINE T 355.9 NEUROPATHY 06/14/2013 THONG CLERK TELEVISION PRODUCTION, DWAINE T 788.1 DYSURIA 06/14/2013 THONG CLERK TELEVISION PRODUCTION, DWAINE T 355.9 NEUROPATHY 06/14/2013 THONG CLERK TELEVISION PRODUCTION, DWAINE T 788.1 DYSURIA 06/14/2013 THONG CLERK TELEVISION PRODUCTION, DWAINE T 355.9 NEUROPATHY 06/14/2013 THONG CLERK TELEVISION PRODUCTION, DWAINE T 788.1 DYSURIA 06/14/2013 THONG CLERK TELEVISION PRODUCTION, DWAINE T 355.9 NEUROPATHY 06/14/2013 THONG CLERK TELEVISION PRODUCTION, DWAINE T 788.1 DYSURIA 06/14/2013 NEIDA TALBOT MD 355.9 NEUROPATHY 06/14/2013 NEIDA TALBOT MD 788.1 DYSURIA 06/14/2013 355.9 NEUROPATHY 06/14/2013 788.1 DYSURIA 06/14/2013 THONG CLERK TELEVISION PRODUCTION, DWAINE T 355.9 NEUROPATHY 06/14/2013 THONG CLERK TELEVISION PRODUCTION, DWAINE T 788.1 DYSURIA 06/14/2013 THONG CLERK TELEVISION PRODUCTION, DWAINE T 355.9 NEUROPATHY 06/14/2013 THONG CLERK TELEVISION PRODUCTION, DWAINE T 788.1 DYSURIA 06/14/2013 THONG CLERK TELEVISION PRODUCTION, DWAINE T 355.9 NEUROPATHY 06/14/2013 THONG CLERK TELEVISION PRODUCTION, DWAINE T 788.1 DYSURIA 06/14/2013 THONG SAAVEDRAN, DWAINE T 355.9 NEUROPATHY 06/14/2013 THONG CLERK TELEVISION PRODUCTION, DWAINE T 788.1 DYSURIA 06/14/2013 DWAINE BENITO APRN T 355.9 NEUROPATHY 06/14/2013 DWAINE BENITO APRN T 788.1 DYSURIA 06/14/2013 NEIDA TALBOT MD 355.9 NEUROPATHY 06/14/2013 NEIDA TALBOT MD 788.1 DYSURIA 06/14/2013 THONG SAAVEDRAN, DWAINE T 355.9 NEUROPATHY 06/14/2013 THONG HODGES, DWAINE T 788.1 DYSURIA 06/14/2013 DWAINE BENITO APRN T 355.9 NEUROPATHY 06/14/2013 THONG CLERK TELEVISION PRODUCTIONDWAINE Arredondo T 788.1 DYSURIA 06/14/2013 PRICE DO, GILBERTO K 355.9 NEUROPATHY 06/14/2013 PRICE DO, GILBERTO K 788.1 DYSURIA 06/14/2013 THONG SAAVEDRANDWAINE T 355.9 NEUROPATHY 06/14/2013 THONG CLERK TELEVISION PRODUCTIONDWAINE T 788.1 DYSURIA 06/14/2013 THONG CLERK TELEVISION PRODUCTION, DWAINE T 355.9 NEUROPATHY 06/14/2013 THONG CLERK TELEVISION PRODUCTION, DWAINE T 788.1 DYSURIA 06/14/2013 THONG CLERK TELEVISION PRODUCTIONDWAINE T 355.9 NEUROPATHY 06/14/2013 THONG CLERK TELEVISION PRODUCTION, DWAINE T 788.1 DYSURIA 06/14/2013 THONG CLERK TELEVISION PRODUCTIONDWAINE Arredondo T 355.9 NEUROPATHY 06/14/2013 DWAINE BENITO APRN T 788.1 DYSURIA 06/14/2013 PRICE DO, GILBERTO K 355.9 NEUROPATHY 06/14/2013 PRICE DO, GILBERTO K 788.1 DYSURIA 06/14/2013 THONG CLERK TELEVISION PRODUCTION, DWAINE T 355.9 NEUROPATHY 06/14/2013 THONG CLERK TELEVISION PRODUCTION, DWAINE T 788.1 DYSURIA 06/14/2013 THONG CLERK TELEVISION PRODUCTION, DWAINE T 355.9 NEUROPATHY 06/14/2013 THONG CLERK TELEVISION PRODUCTION, DWAINE T 788.1 DYSURIA 06/14/2013 THONG CLERK TELEVISION PRODUCTION, DWAINE T 355.9 NEUROPATHY 06/14/2013 THONG CLERK TELEVISION PRODUCTIONDWAINE T 788.1 DYSURIA 06/14/2013 THONG CLERK TELEVISION PRODUCTIONDWAINE T 355.9 NEUROPATHY 06/14/2013 THONG CLERK TELEVISION PRODUCTION, DWAINE T 788.1 DYSURIA 06/14/2013 THONG CLERK TELEVISION PRODUCTIONDWAINE T 355.9 NEUROPATHY 06/14/2013 THONG CLERK TELEVISION PRODUCTIONDWAINE T 788.1 DYSURIA 06/14/2013 THONG CLERK TELEVISION PRODUCTIONDWAINE T 355.9 NEUROPATHY 06/14/2013 THONG CLERK TELEVISION PRODUCTIONDWAINE T 788.1 DYSURIA 06/14/2013 THONG CLERK TELEVISION PRODUCTIONDWAINE T 355.9 NEUROPATHY 06/14/2013 THONG CLERK TELEVISION PRODUCTIONDWAINE T 788.1 DYSURIA 06/14/2013 THONG CLERK TELEVISION PRODUCTIONDWAINE T 355.9 NEUROPATHY 06/14/2013 THONG CLERK TELEVISION PRODUCTIONDWAINE T 788.1 DYSURIA 06/14/2013 THONG CLERK TELEVISION PRODUCTIONDWAINE T 355.9 NEUROPATHY 06/14/2013 THONG CLERK TELEVISION PRODUCTIONDWAINE T 788.1 DYSURIA 06/14/2013 THONG CLERK TELEVISION PRODUCTIONDWAINE T 355.9 NEUROPATHY 06/14/2013 THONG CLERK TELEVISION PRODUCTIONDWAINE T 788.1 DYSURIA 06/27/2013 DWAINE BENITO APRN [...] AND ABSCESS OF UNSPECIFIED SITES 11/09/2013 THONG CLERK TELEVISION PRODUCTION, DWAINE T 682.9 CELLULITIS AND ABSCESS OF UNSPECIFIED SITES 11/09/2013 THONG CLERK TELEVISION PRODUCTIONDWAINE T 682.9 CELLULITIS AND ABSCESS OF UNSPECIFIED [...] SAAVEDRAN, DWAINE T 564.00 CONSTIPATION 01/16/2014 THONG CLERK TELEVISION PRODUCTION, DWAINE T 564.00 CONSTIPATION 01/16/2014 THONG CLERK TELEVISION PRODUCTION, DWAINE T 564.00 CONSTIPATION 01/16/2014 THONG SAAVEDRAN, DWAINE T 564.00 CONSTIPATION 01/16/2014 PRICE DOERNESTOA K 564.00 CONSTIPATION 01/16/2014 THONG CLERK TELEVISION PRODUCTION, DWAINE T 564.00 CONSTIPATION 01/16/2014 THONG CLERK TELEVISION PRODUCTION, DWAINE T 564.00 CONSTIPATION 01/16/2014 THONG CLERK TELEVISION PRODUCTION, DWAINE T 564.00 CONSTIPATION 01/16/2014 THONG CLERK TELEVISION PRODUCTION, DWAINE T 564.00 CONSTIPATION 01/16/2014 THONG CLERK TELEVISION PRODUCTION, DWAINE T 564.00 CONSTIPATION 01/16/2014 THONG CLERK TELEVISION PRODUCTION, DWAINE T 564.00 CONSTIPATION 01/16/2014 THONG CLERK TELEVISION PRODUCTION, DWAINE T 564.00 CONSTIPATION 01/16/2014 THONG CLERK TELEVISION PRODUCTION, DWAINE T 564.00 CONSTIPATION 01/16/2014 THONG CLERK TELEVISION PRODUCTION, DWAINE T 564.00 CONSTIPATION 01/16/2014 THONG CLERK TELEVISION PRODUCTION, DWAINE T 564.00 CONSTIPATION 02/25/2014 DWAINE BENITO APRN T 465.9 UPPER RESPIRATORY INFECTION 02/25/2014 DWAINE BENITO APRN T 465.9 UPPER RESPIRATORY INFECTION 02/25/2014 PRICE DO, GILBERTO K 465.9 UPPER RESPIRATORY INFECTION 02/25/2014 THONG SAAVEDRANDWAINE T 465.9 UPPER RESPIRATORY INFECTION 02/25/2014 DWAINE BENITO APRN T 465.9 UPPER RESPIRATORY INFECTION 02/25/2014 THONG CLERK TELEVISION PRODUCTION, DWAINE T 465.9 UPPER RESPIRATORY INFECTION 02/25/2014 THONG CLERK TELEVISION PRODUCTION, DWAINE T 465.9 UPPER RESPIRATORY INFECTION 02/25/2014 THONG CLERK TELEVISION PRODUCTION, DWAINE T 465.9 UPPER RESPIRATORY INFECTION 02/25/2014 THONG CLERK TELEVISION PRODUCTION, DWAINE T 465.9 UPPER RESPIRATORY INFECTION 02/25/2014 THONG CLERK TELEVISION PRODUCTION, DWAINE T 465.9 UPPER RESPIRATORY INFECTION 02/25/2014 THONG CLERK TELEVISION PRODUCTION, DWAINE T 465.9 UPPER RESPIRATORY INFECTION 02/25/2014 THONG CLERK TELEVISION PRODUCTION, DWAINE T 465.9 UPPER RESPIRATORY INFECTION 02/25/2014 THONG CLERK TELEVISION PRODUCTION, DWAINE T 465.9 UPPER RESPIRATORY INFECTION 02/27/2014 [...] APOLLO Castillo Ot 719.45 02/27/2014 DWAINE BENITO GLASS BENDER Ot 707.05 02/27/2014 DWAINE BENITO GLASS BENDER Ot 707.20 03/02/2014 GILBERTO PRICE DO K [...] DAVID CONTEH DOA K Ot E11.9 05/29/2015 WEOR , DINAH K Ot F17.210 05/29/2015 WERO , DINAH K Ot N31.9 05/29/2015 WERO , DINAH K Ot N39.0 05/29/2015 WERO GUILLAUME, DINAH K Ot Z79.899 07/19/2015 SHIRLEY KIRKPATRICK MD Ot F17.210 NICOTINE DEPENDENCE, CIGARETTES, UNCOMPL 07/19/2015 SHIRLEY KIRKPATRICK MD Ot 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 MOTOR AND SENSORY NEUROPATHY 07/19/2015 SHIRLEY KIRKPATRICK MD Ot T83.098A [facility] COMPL OF OTH INDWELLING URETHRAL CA [...] 01/30/2016 ALICIA ZHANG MDNT A Ot Z79.84 PENITENTIARY (CURRENT) USE OF ORAL HYPOGLYC 01/30/2016 VICENTE MORRISON MAIKEL A Ot Z79.899 OTHER SENIOR [employer]S OFFICER (CURRENT) DRUG THERAPY 01/31/2016 MAIKEL ZHANG MD [...] 01/31/2016 ALICIA ZHANG MDNT A Ot Z79.84 PENITENTIARY (CURRENT) USE OF ORAL HYPOGLYC 01/31/2016 VICENTE MORRISON MAIKEL A Ot Z79.899 OTHER SENIOR [employer]S OFFICER (CURRENT) DRUG THERAPY 02/05/2016 MAIKEL ZHANG MD [...] 02/05/2016 ALICIA ZHANG MDNT A Ot Z79.84 PENITENTIARY (CURRENT) USE OF ORAL HYPOGLYC 02/05/2016 VICENTE MORRISON MAIKEL A Ot Z79.899 OTHER SENIOR GRANTS OFFICER (CURRENT) DRUG THERAPY 02/07/2016 JOVAN CASON MD [...] CATH 04/26/2016 ALYSIA CASTRO MD Ot Z79.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 04/28/2016 ALYSIA [...] CATH 04/28/2016 ALYSIA CASTRO MD Ot Z79.84 PENITENTIARY (CURRENT) USE OF ORAL HYPOGLYC 05/04/2016 JOVAN [...] CATHET 05/20/2016 HONG SMART MD, Ot Z79.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 05/20/2016 HONG SMART MD Ot Z91.19 PATIENT'S NONCOMPLIANCE W [facility] MEDICAL TR 09/21/2016 SHIRLEY KIRKPATRIKC MD, Ot E11.9 TYPE 2 DIABETES MELLITUS WITHOUT COMPLIC 09/21/2016 SHIRLEY KIRKPATRICK MD, Ot F17.210 NICOTINE DEPENDENCE, CIGARETTES, UNCOMPL 09/21/2016 SHIRLEY KIRKPATRICK MD, Ot N39.0 URINARY TRACT INFECTION, SITE NOT SPECIF 09/21/2016 SHIRLEY KIRKPATRICK MD, Ot Z79.84 PENITENTIARY (CURRENT) USE OF ORAL HYPOGLYC 09/21/2016 SHIRLEY KIRKPATRICK MD, Ot Z87.442 PERSONAL HISTORY OF URINARY CALCULI 09/25/2016 DWAINE BENITO GLASS BENDER Ot N39.0 URINARY TRACT INFECTION, SITE NOT SPECIF 09/25/2016 DWAINE BENITO GLASS BENDER Ot N39.0 URINARY TRACT INFECTION, SITE NOT SPECIF 09/25/2016 DWAINE BENITO GLASS BENDER Ot N39.0 URINARY TRACT INFECTION, SITE NOT SPECIF 09/26/2016 DWAINE BENITO GLASS BENDER Ot N39.0 URINARY TRACT INFECTION, SITE NOT SPECIF 09/27/2016 SHIRLEY KIRKPATRICK MD, Ot E11.9 TYPE 2 DIABETES MELLITUS WITHOUT COMPLIC 09/27/2016 SHIRLEY KIRKPATRICK MD, Ot F17.210 NICOTINE DEPENDENCE, CIGARETTES, UNCOMPL 09/27/2016 SHIRLEY KIRKPATRICK MD, Ot N39.0 URINARY TRACT INFECTION, SITE NOT SPECIF 09/27/2016 SHIRLEY KIRKPATRICK MD, Ot 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.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 09/27/2016 SHIRLEY KIRKPATRICK MD Ot Z87.442 PERSONAL HISTORY OF URINARY CALCULI 09/27/2016 DWAINE BENITO GLASS BENDER Ot N39.0 URINARY TRACT INFECTION, SITE NOT SPECIF 09/27/2016 DWAINE BENITO GLASS BENDER Ot N39.0 URINARY TRACT INFECTION, SITE NOT SPECIF 09/28/2016 DWAINE BENITO GLASS BENDER Ot N39.0 URINARY TRACT INFECTION, SITE NOT SPECIF 09/28/2016 DWAINE BENITO GLASS BENDER Ot N39.0 URINARY TRACT INFECTION, SITE NOT SPECIF 09/28/2016 THONGWDAINE GLASS BENDER Ot N39.0 URINARY TRACT INFECTION, SITE NOT SPECIF 09/29/2016 THONGDWAINE GLASS BENDER Ot N39.0 URINARY TRACT INFECTION, SITE NOT SPECIF 09/29/2016 THONGDWAINE GLASS BENDER Ot N39.0 URINARY TRACT INFECTION, SITE NOT SPECIF 09/30/2016 DWAINE BENITO GLASS BENDER Ot N39.0 URINARY TRACT INFECTION, SITE NOT [...] SMO 10/18/2016 BEST MCKEE MD Ot Z79.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 10/18/2016 BEST [...] PALPITATIONS 10/20/2016 BEST MCKEE MD, Ot Z79.84 PENITENTIARY (CURRENT) USE OF ORAL HYPOGLYC 10/20/2016 BEST MCKEE MD Ot Z87.01 PERSONAL HISTORY OF PNEUMONIA (RECURRENT 10/20/2016 BEST MCKEE MD, Ot Z87.442 PERSONAL HISTORY OF URINARY CALCULI 10/20/2016 BEST MCKEE MD Ot Z96.0 PRESENCE OF UROGENITAL IMPLANTS 10/20/2016 BEST MCKEE MD, Ot Z98.1 ARTHRODESIS STATUS 11/25/2016 DWAINE BENITO Ot N39.0 URINARY TRACT INFECTION, SITE NOT SPECIF 12/23/2016 DWAINE BENITO GLASS BENDER Ot N39.0 URINARY TRACT INFECTION, SITE NOT [...] PAIN 12/24/2016 ALYSIA CASTRO MD, Ot Z79.84 PENITENTIARY (CURRENT) USE OF ORAL HYPOGLYC 12/24/2016 ALYSIA [...] PAIN 12/25/2016 ALYSIA CASTRO MD Ot Z79.84 PENITENTIARY (CURRENT) USE OF ORAL HYPOGLYC 12/25/2016 ALYSIA [...] PAIN 12/29/2016 ALYSIA CASTRO MD Ot 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.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 12/29/2016 ALYSIA [...] SPECIF 01/12/2017 DINAH CONTEH DO Ot Z79.84 PENITENTIARY (CURRENT) USE OF ORAL HYPOGLYC 01/12/2017 DINAH [...] URINARY TRACT INFECTION, SITE NOT SPECIF 01/14/2017 WERO GUILLAUME DINAH Alba Ot Z79.84 PENITENTIARY (CURRENT) USE OF ORAL HYPOGLYC 01/14/2017 WERO GUILLAUME DINAH Alba Ot Z80.3 FAMILY HISTORY OF MALIGNANT NEOPLASM OF 01/14/2017 WERO GUILLAUME DINAH Alba Ot Z87.01 PERSONAL HISTORY OF PNEUMONIA (RECURRENT 01/14/2017 WERO GUILLAUME DINAH Alba Ot Z87.19 PERSONAL HISTORY OF OTHER DISEASES OF TH 01/14/2017 WERO GUILLAUME DINAH Anjali Ot Z87.448 PERSONAL HISTORY OF OTHER DISEASES OF UR 01/14/2017 WERO GUILLAUME DINAH Alba Ot Z96.0 PRESENCE OF UROGENITAL IMPLANTS 01/14/2017 DINAH CONTEH DO Ot Z98.1 ARTHRODESIS STATUS 04/17/2017 DWAINE BENITO Ot K56.699 OTHER INTESTNL OBST UNSP TO PARTIAL V 04/17/2017 DWAINE BENITO Ot M41.85 OTHER FORMS OF SCOLIOSIS, THORACOLUMBAR 04/17/2017 DWAINE BENITO Ot Z96.7 PRESENCE OF OTHER BONE AND TENDON IMPLAN Procedures Code Description [place] [address] UA W/ CULTURE IF INDICATED 03/01/2012 64496 CULTURE URINE 03/03/2012 59533 UA W/ CULTURE IF INDICATED 03/31/2012 98783 CULTURE URINE 04/02/2012 62825 UA W/ CULTURE IF INDICATED 04/15/2012 81524 CULTURE URINE 04/17/2012 23036 INSERT BLADDER CATHETER 06/04/2012 15506 INSERT TEMP BLADDER CATH 06/17/2012 63392 INSERT BLADDER CATHETER 07/02/2012 18408 INSERT BLADDER CATHETER 07/16/2012 79149 UA LONG DIP 07/26/2012 12693 CULTURE URINE 07/28/2012 43553 INSERT TEMP BLADDER CATH 07/30/2012 51496 CMP 08/02/2012 52177 LIPID PANEL 08/02/2012 89458 VITAMIN D 25-HYDROXY (D2,D3 , TOTAL) 08/02/2012 21382 A1C (IN-HOUSE) 08/02/2012 61974 TSH 08/02/2012 60003 CBC 08/02/2012 37790 MAMMOGRAM, SCREENING 11/30/2012 28749 UA LONG DIP 11/30/2012 01678 CULTURE URINE 12/01/2012 81044 CULTURE URINE 12/02/2012 53282 CULTURE URINE 02/18/2013 49455 UA W/ CULTURE IF INDICATED 04/20/2013 42407 CULTURE URINE 04/22/2013 16673 CULTURE WOUND (AEROBIC) 05/23/2013 43587 A1C (IN-HOUSE) 06/14/2013 51206 UA W/ CULTURE IF INDICATED 06/20/2013 60650 CULTURE URINE 06/20/2013 18932 INSERT TEMP BLADDER CATH 06/22/2013 63012 UA LONG DIP 07/01/2013 07773 CULTURE URINE 07/02/2013 33909 INSERT TEMP BLADDER CATH 07/06/2013 11335 INSERT TEMP BLADDER CATH 07/20/2013 44975 CULTURE WOUND (AEROBIC) 07/25/2013 16886 CULTURE URINE 08/04/2013 04584 CULTURE WOUND (AEROBIC) 11/09/[address] PELVIS W/O CONTRAST 11/10/2013 38842 CULTURE WOUND (AEROBIC) 12/09/2013 15695 UA W/MICROSCOPY 12/16/2013 42295 UA W/MICROSCOPY 12/16/2013 93494 CULTURE URINE 12/20/2013 55889 CULTURE URINE 12/22/2013 87455 UA W/ CULTURE IF INDICATED 01/04/2014 25701 CULTURE URINE 01/04/2014 76773 CULTURE URINE 05/03/2014 [id number] CULTURE URINE 05/05/2014 Results Test Result Range [...] culture - 01/30/16 16:15 Bacterial urine culture [id number] NRG COLONY COUNT >100,000/ML NRG FTX;REPORTABLE SENSITIVITY [place]PORTED AT 0803, 10--16 NRG URINE CULTURE RESULTS PLUS NRG Bacterial [...] culture - 02/08/16 15:55 Bacterial urine culture [id number] NRG COLONY COUNT 10,000/ML - 100,000/ML NRG [...] culture - 05/20/16 02:35 Bacterial urine culture [id number] NRG COLONY COUNT >100,000/ML NRG FTX;REPORTABLE SENSITIVITY [...] culture - 09/21/16 20:10 Bacterial urine culture [id number] NRG COLONY COUNT 10,000/ML - 100,000/ML NRG FTX;REPORTABLE ID/SENSITIVITY TO FOLLOW NRG Bacterial blood culture - 09/21/16 20:10 Bacterial blood culture NG NRG Bacterial blood culture - 09/21/16 20:30 Bacterial blood culture NG NRG Whole blood basic metabolic panel - 09/25/16 [...] culture - 10/17/16 23:20 Bacterial urine culture [id number] NRG COLONY COUNT >100,000/ML NRG FTX;REPORTABLE SENSITIVITY [...] culture - 12/23/16 22:16 Bacterial urine culture [id number] NRG COLONY COUNT >100,000/ML NRG FTX;REPORTABLE SENSITIVITY REPORTED 12/25/16 7:30 NRG FREE TEXT ENTRY 2 PLUS, NRG FREE TEXT ENTRY 3 LACTOBACILLUS 10-100,000/ML NR Bacterial susceptibility panel - 12/23/16 22:16 Gentamicin [...] test by minimum inhibitory concentration - NR Complete blood count (CBC) with automated white [...] culture - 01/12/17 18:05 Bacterial urine culture [id number] NRG COLONY COUNT >100,000/ML NRG FTX;REPORTABLE SENSITIVITY [...] culture YES NRG Bacterial urine culture - 04/17/17 20:16 Bacterial urine culture [id number] NRG COLONY COUNT 10,000/ML - 100,000/ML NRG FTX;REPORTABLE SENSITIVITY REPORTED 04/19 06:40 NR Bacterial susceptibility panel - 04/17/17 20:16 Gentamicin susceptibility test by minimum inhibitory concentration > = NRG Trimethoprim/sulfamethoxazole susceptibility test by minimum inhibitoryconcentration S NRG Ampicillin susceptibility test by minimum inhibitory concentration > = NRG Tobramycin susceptibility test by minimum inhibitory concentration 8 NRG Cefazolin susceptibility test by minimum inhibitory concentration < = NRG Ceftriaxone susceptibility test by minimum inhibitory concentration <= NRG Ampicillin/sulbactam susceptibility test by minimum inhibitory concentration R NRG Piperacillin/tazobactam susceptibility test by minimum inhibitory concentration S NRG Ciprofloxacin susceptibility test by minimum inhibitory concentration >= NRG Meropenem susceptibility test by minimum inhibitory concentration < = NRG Nitrofurantoin susceptibility test by minimum inhibitory concentration <= NRG Aztreonam susceptibility test by minimum inhibitory concentration < = NRG Extended spectrum beta lactamase (ESBL) producing bacteria susceptibility test by minimum inhibitory concentration - [facility] Whole blood basic metabolic panel - 04/20/17 05:12 Serum or plasma sodium measurement (moles/volume) 140 mmol/L 135-145 Serum or plasma potassium measurement (moles/volume) 4.2 mmol/L 3.6-5.0 Serum or plasma chloride measurement (moles/volume) 108 mmol/L 98-107 Carbon dioxide 23 mmol/L 21-32 Serum or plasma anion gap determination (moles/volume) 9 mmol/L 5-14 Serum or plasma urea nitrogen measurement (mass/volume) 7 mg/dL 7-18 Serum or plasma creatinine measurement (mass/volume) 0.35 mg/dL 0.60-1.30 Serum or plasma urea nitrogen/creatinine mass ratio 20 NRG Serum or plasma creatinine measurement with calculation of estimated glomerular filtration rate > NRG Serum or plasma glucose measurement (mass/volume) 85 mg/dL 70-105 Serum or plasma calcium measurement (mass/volume) 8.3 mg/dL 8.5-10.1 Magnesium - 04/20/17 05:12 Magnesium 2.2 mg/dL 1.8-2.4 Bacterial blood culture - 04/20/17 16:25 Bacterial blood culture NG NRG Bacterial blood culture - 04/20/17 16:30 Bacterial blood culture NG NRG Blood CBC with ordered manual differential panel - 04/21/17 09:45 Blood leukocytes automated count (number/volume) 5.0 10*3/uL 4.3-11.0 Blood erythrocytes automated count (number/volume) 3.70 10*6/uL 4.35-5.85 Venous blood hemoglobin measurement (mass/volume) 11.6 g/dL 11.5-16.0 Blood hematocrit (volume fraction) 36 % 35-52 Automated erythrocyte mean corpuscular volume 97 [foz_us] 80-99 Automated erythrocyte mean corpuscular hemoglobin (mass per erythrocyte) 31 pg 25-34 Automated erythrocyte mean corpuscular hemoglobin concentration measurement ( mass/volume) 32 g/dL 32-36 Automated erythrocyte distribution width ratio 14.7 % 10.0-14.5 Automated blood platelet count (count/volume) 164 10*3/uL 130-400 Automated blood platelet mean volume measurement 9.7 [foz_us] 7.4-10.4 Automated blood neutrophils/100 leukocytes 46 % 42-75 Automated blood lymphocytes/100 leukocytes 34 % 12-44 Blood monocytes/100 leukocytes 12 % NRG Automated blood eosinophils/100 leukocytes 1 % 0-10 Automated blood basophils/100 leukocytes 0 % 0-10 Blood neutrophils automated count (number/volume) 2.3 10*3 1.8-7.8 Blood lymphocytes automated count (number/volume) 1.7 10*3 1.0-4.0 Blood monocytes automated count (number/volume) 0.9 10*3 0.0-1.0 Automated eosinophil count 0.1 10*3/uL 0.0-0.3 Automated blood basophil count (count/volume) 0.0 10*3/uL 0.0-0.1 Manual blood segmented neutrophils/100 leukocytes 49 % NRG Blood band neutrophils/100 leukocytes 4 % NRG Manual blood lymphocytes/100 leukocytes 35 % NRG Manual eosinophils/100 leukocytes in nose 0 % NRG Manual blood basophils/100 leukocytes 0 % NR Blood erythrocyte morphology finding identification [facility] Automated blood complete blood count (hemogram) panel - 04/22/17 07:14 Blood leukocytes automated count (number/volume) 5.7 10*3/uL 4.3-11.0 Blood erythrocytes automated count (number/volume) 3.88 10*6/uL 4.35-5.85 Venous blood hemoglobin measurement (mass/volume) 12.3 g/dL 11.5-16.0 Blood hematocrit (volume fraction) 37 % 35-52 Automated erythrocyte mean corpuscular volume 95 [foz_us] 80-99 Automated erythrocyte mean corpuscular hemoglobin (mass per erythrocyte) 32 pg 25-34 Automated erythrocyte mean corpuscular hemoglobin concentration measurement ( mass/volume) 33 g/dL 32-36 Automated erythrocyte distribution width ratio 14.6 % 10.0-14.5 Automated blood platelet count (count/volume) 156 10*3/uL 130-400 Automated blood platelet mean volume measurement 9.7 [foz_us] 7.4-10.4 Whole blood basic metabolic panel - 04/22/17 07:14 Serum or plasma sodium measurement (moles/volume) 139 mmol/L 135-145 Serum or plasma potassium measurement (moles/volume) 3.7 mmol/L 3.6-5.0 Serum or plasma chloride measurement (moles/volume) 102 mmol/L 98-107 Carbon dioxide 25 mmol/L 21-32 Serum or plasma anion gap determination (moles/volume) 12 mmol/L 5-14 Serum or plasma urea nitrogen measurement (mass/volume) 8 mg/dL 7-18 Serum or plasma creatinine measurement (mass/volume) 0.39 mg/dL 0.60-1.30 Serum or plasma urea nitrogen/creatinine mass ratio 21 NRG Serum or plasma creatinine measurement with calculation of estimated glomerular filtration rate > NRG Serum or plasma glucose measurement (mass/volume) 87 mg/dL 70-105 Serum or plasma calcium measurement (mass/volume) 8.6 mg/dL 8.5-10.1 Influenza virus A and B antigen detection - 04/22/17 22:16 CALL POSITIVES (F1 HELP) CALLED TO [place] IN ED AT 2237 NR FLU RESULT POSITIVE FOR INFLUENZA B ANTIGEN, NEG FOR A ANTIGEN, BY IA [facility] Complete blood count (CBC) with automated white blood cell (WBC) differential - 04/23/17 10:15 Blood leukocytes automated count (number/volume) 6.2 10*3/uL 4.3-11.0 Blood erythrocytes automated count (number/volume) 4.27 10*6/uL 4.35-5.85 Venous blood hemoglobin measurement (mass/volume) 13.4 g/dL 11.5-16.0 Blood hematocrit (volume fraction) 40 % 35-52 Automated erythrocyte mean corpuscular volume 94 [foz_us] 80-99 Automated erythrocyte mean corpuscular hemoglobin (mass per erythrocyte) 31 pg 25-34 Automated erythrocyte mean corpuscular hemoglobin concentration measurement ( mass/volume) 33 g/dL 32-36 Automated erythrocyte distribution width ratio 14.7 % 10.0-14.5 Automated blood platelet count (count/volume) 158 10*3/uL 130-400 Automated blood platelet mean volume measurement 10.1 [foz_us] 7.4-10.4 Automated blood neutrophils/100 leukocytes 63 % 42-75 Automated blood lymphocytes/100 leukocytes 23 % 12-44 Blood monocytes/100 leukocytes 13 % 0-12 Automated blood eosinophils/100 leukocytes 1 % 0-10 Automated blood basophils/100 leukocytes 0 % 0-10 Blood neutrophils automated count (number/volume) 3.9 10*3 1.8-7.8 Blood lymphocytes automated count (number/volume) 1.5 10*3 1.0-4.0 Blood monocytes automated count (number/volume) 0.8 10*3 0.0-1.0 Automated eosinophil count 0.0 10*3/uL 0.0-0.3 Automated blood basophil count (count/volume) 0.0 10*3/uL 0.0-0.1 Blood lactic acid measurement (moles/volume) - 04/23/17 10:15 Blood lactic acid measurement (moles/volume) 0.84 mmol/L 0.50-2.00 PT panel in platelet poor plasma by coagulation assay - 04/23/17 10:15 Prothrombin time (PT) in platelet poor plasma by coagulation assay 12.2 s 12.2-14.7 INR in platelet poor plasma or blood by coagulation assay 0.9 0.8-1.4 Activated partial thromboplastin time (aPTT) in platelet poor plasma bycoagulation assay - 04/23/17 10:15 Activated partial thromboplastin time (aPTT) in platelet poor plasma bycoagulation assay 22 s 24-35 Comprehensive metabolic panel - 04/23/17 10:15 Serum or plasma sodium measurement (moles/volume) 137 mmol/L 135-145 Serum or plasma potassium measurement (moles/volume) 3.5 mmol/L 3.6-5.0 Serum or plasma chloride measurement (moles/volume) 96 mmol/L 98-107 Carbon dioxide 26 mmol/L 21-32 Serum or plasma anion gap determination (moles/volume) 15 mmol/L 5-14 Serum or plasma urea nitrogen measurement (mass/volume) 9 mg/dL 7-18 Serum or plasma creatinine measurement (mass/volume) 0.43 mg/dL 0.60-1.30 Serum or plasma urea nitrogen/creatinine mass ratio 21 NRG Serum or plasma creatinine measurement with calculation of estimated glomerular filtration rate > NRG Serum or plasma glucose measurement (mass/volume) 88 mg/dL 70-105 Serum or plasma calcium measurement (mass/volume) 9.1 mg/dL 8.5-10.1 Serum or plasma total bilirubin measurement (mass/volume) 0.3 mg/dL 0.1-1.0 Serum or plasma alkaline phosphatase measurement (enzymatic activity/volume) 62 U/L 40-136 Serum or plasma aspartate aminotransferase measurement (enzymatic activity/ volume) 96 U/L 5-34 Serum or plasma alanine aminotransferase measurement (enzymatic activity/volume ) 62 U/L 0-55 Serum or plasma protein measurement (mass/volume) 7.3 g/dL 6.4-8.2 Serum or plasma albumin measurement (mass/volume) 3.8 g/dL 3.2-4.5 Encounters ACCT No. Visit Date/Time Discharge Status Pt. Type Provider Facility Loc./Unit Complaint [id number] 07/26/2014 16:57:00 07/26/2014 23:59:59 [facility] Outpatient DWAINE BENITO APRN [id number] 07/19/2014 17:04:00 07/19/2014 23:59:59 [facility] Outpatient DWAINE BENITO APRN [id number] 07/05/2014 16:59:00 07/05/2014 23:59:59 CLS Outpatient DWAINE BENITO APRN [id number] 06/21/2014 16:55:00 06/21/2014 23:59:59 CLS Outpatient DWAINE BENITO APRN [id number] 05/24/2014 16:53:00 05/24/2014 23:59:59 CLS Outpatient DWAINE BENITO APRN [id number] 05/03/2014 18:27:00 05/03/2014 23:59:59 CLS Outpatient DWAINE BENITO APRN [id number] 04/26/2014 17:01:00 04/26/2014 23:59:59 CLS Outpatient DWAINE BENITO APRN [id number] 04/12/2014 15:47:00 04/12/2014 23:59:59 CLS Outpatient DWAINE BENITO APRN [id number] 03/29/2014 17:08:00 03/29/2014 23:59:59 CLS Outpatient DWAINE BENITO APRN [id number] 03/24/2014 15:18:00 03/24/2014 23:59:59 CLS Outpatient DWAINE BENITO APRN [id number] 03/15/2014 16:56:00 03/15/2014 23:59:59 CLS Outpatient GILBERTO PRICE DO [id number] 03/03/2014 15:57:00 03/03/2014 23:59:59 CLS Outpatient DWAINE BENITO APRN [id number] 02/25/2014 14:23:00 02/25/2014 23:59:59 CLS Outpatient DWAINE BENITO APRN [id number] 02/15/2014 17:12:00 02/15/2014 23:59:59 CLS Outpatient DWAINE BENITO APRN [id number] 02/01/2014 16:57:00 02/01/2014 23:59:59 CLS Outpatient DWAINE BENITO APRN [id number] 01/18/2014 16:59:00 01/18/2014 23:59:59 CLS Outpatient DEE GUILLAUMEGILBERTO [id number] 01/16/2014 14:37:00 01/16/2014 23:59:59 CLS Outpatient DWAINE BENITO APRN [id number] 01/04/2014 16:56:00 01/04/2014 23:59:59 CLS Outpatient DWAINE BENITO APRN [id number] 01/04/2014 16:56:00 01/04/2014 23:59:59 CLS Outpatient NEIDA TALBOT MD [id number] 12/22/2013 14:42:00 12/22/2013 23:59:59 CLS Outpatient DWAINE BENITO APRN [id number] 12/21/2013 16:52:00 12/21/2013 23:59:59 CLS Outpatient DWAINE BENITO APRN [id number] 12/16/2013 15:18:00 12/16/2013 23:59:59 CLS Outpatient DWAINE BENITO APRN [id number] 12/07/2013 16:35:00 12/07/2013 23:59:59 CLS Outpatient DWAINE BENITO APRN [id number] 12/02/2013 15:16:00 12/02/2013 23:59:59 CLS Outpatient DWAINE BENITO APRN [id number] 11/09/2013 16:52:00 11/09/2013 23:59:59 CLS Outpatient NEIDA TALBOT MD [id number] 11/04/2013 14:43:00 11/04/2013 23:59:59 CLS Outpatient DWAINE BENITO APRN [id number] 10/26/2013 17:00:00 10/26/2013 23:59:59 CLS Outpatient DWAINE BENITO APRN [id number] 10/12/2013 17:02:00 10/12/2013 23:59:59 CLS Outpatient DWAINE BENITO APRN [id number] 09/28/2013 16:56:00 09/28/2013 23:59:59 CLS Outpatient DWAINE BENITO APRN [id number] 09/14/2013 16:34:00 09/14/2013 23:59:59 CLS Outpatient DWAINE BENITO APRN [id number] 08/31/2013 16:23:00 08/31/2013 23:59:59 CLS Outpatient DWAINE BENITO APRN [id number] 08/16/2013 11:31:00 08/16/2013 23:59:59 CLS Outpatient DWAINE BENITO APRN [id number] 08/03/2013 16:56:00 08/03/2013 23:59:59 CLS Outpatient NEIDA TALBOT MD [id number] 07/25/2013 15:43:00 07/25/2013 23:59:59 CLS Outpatient DWAINE BENITO APRN [id number] 07/20/2013 16:34:00 07/20/2013 23:59:59 CLS Outpatient DWAINE BENITO APRN [id number] 07/12/2013 16:40:00 07/12/2013 23:59:59 CLS Outpatient DWAINE BENITO APRN [id number] 07/06/2013 16:45:00 07/06/2013 23:59:59 CLS Outpatient DWAINE BENITO APRN [id number] 06/28/2013 11:26:00 06/28/2013 23:59:59 CLS Outpatient DWAINE BENITO APRN [id number] 06/27/2013 14:41:00 06/27/2013 23:59:59 CLS Outpatient DWAINE BENITO APRN [id number] 06/22/2013 16:40:00 06/22/2013 23:59:59 CLS Outpatient DWAINE BENITO APRN [id number] 06/22/2013 16:40:00 06/22/2013 23:59:59 CLS Outpatient DWAINE BENITO APRN [id number] 06/20/2013 09:07:00 06/20/2013 23:59:59 CLS Outpatient DWAINE BENITO APRN [id number] 06/14/2013 15:48:00 06/14/2013 23:59:59 CLS Outpatient YE ANDRADE MD [id number] 06/08/2013 16:29:00 06/08/2013 23:59:59 CLS Outpatient DWAINE BENITO APRN [id number] 05/25/2013 16:54:00 05/25/2013 23:59:59 CLS Outpatient DWAINE BENITO APRN [id number] 05/23/2013 14:07:00 05/23/2013 23:59:59 CLS Outpatient DWAINE BENITO APRN [id number] 05/11/2013 17:01:00 05/11/2013 23:59:59 CLS Outpatient DWAINE BENITO APRN [id number] 04/27/2013 17:06:00 04/27/2013 23:59:59 CLS Outpatient DWAINE BENITO APRN [id number] 04/20/2013 08:39:00 04/20/2013 23:59:59 CLS Outpatient DWAINE BENITO APRN [id number] 04/12/2013 11:34:00 04/12/2013 23:59:59 CLS Outpatient DWAINE BENITO APRN [id number] 03/30/2013 16:43:00 03/30/2013 23:59:59 CLS Outpatient DWAINE BENITO APRN [id number] 03/16/2013 16:31:00 03/16/2013 23:59:59 CLS Outpatient NEIDA TALBOT MD [id number] 03/11/2013 09:19:00 03/11/2013 23:59:59 CLS Outpatient DWAINE BENITO APRN [id number] 03/02/2013 16:47:00 03/02/2013 23:59:59 CLS Outpatient NEIDA TALBOT MD [id number] 02/16/2013 16:40:00 02/16/2013 23:59:59 CLS Outpatient DWAINE BENITO APRN [id number] 02/02/2013 17:02:00 02/02/2013 23:59:59 CLS Outpatient NEIDA TALBOT MD [id number] 01/19/2013 16:46:00 01/19/2013 23:59:59 CLS Outpatient DWAINE BENITO APRN [id number] 01/05/2013 16:36:00 01/05/2013 23:59:59 CLS Outpatient DWAINE BENITO APRN [id number] 07/14/2012 16:52:00 07/14/2012 23:59:59 CLS Outpatient DWAINE BENITO APRN [id number] 06/30/2012 16:49:00 06/30/2012 23:59:59 CLS Outpatient [id number] 06/16/2012 17:03:00 06/16/2012 23:59:59 CLS Outpatient [id number] 06/02/2012 16:24:00 06/02/2012 23:59:59 CLS Outpatient DWAINE BENITO APRN [id number] 05/19/2012 14:49:00 05/19/2012 23:59:59 CLS Outpatient [id number] 05/05/2012 16:58:00 05/05/2012 23:59:59 CLS Outpatient [id number] 04/21/2012 17:06:00 04/21/2012 23:59:59 CLS Outpatient DWAINE BENITO APRN [id number] 04/15/2012 08:42:00 04/15/2012 23:59:59 CLS Outpatient GILBERTO PRICE DO [id number] 04/07/2012 17:05:00 04/07/2012 23:59:59 CLS Outpatient [id number] 03/31/2012 16:28:00 03/31/2012 23:59:59 CLS Outpatient NEIDA TALBOT MD [id number] 03/24/2012 17:13:00 03/24/2012 23:59:59 CLS Outpatient DWAINE BENITO APRN [id number] 02/11/2012 16:58:00 02/11/2012 23:59:59 CLS Outpatient DWAINE BENITO APRN Сергей [id number] 11/23/2013 16:48:00 Document Registration [id number] 12/15/2012 16:50:00 Document Registration [id number] 12/01/2012 16:44:00 Document Registration [id number] 10/06/2012 16:58:00 Document Registration [id number] 09/30/2012 16:25:00 Document Registration [id number] 09/22/2012 16:17:00 Document Registration [id number] 09/13/2012 17:44:00 Document Registration [id number] 09/08/2012 16:49:00 Document Registration [id number] 08/11/2012 14:50:00 Document Registration [id number] 07/28/2012 14:23:00 Document Registration [id number] 07/26/2012 08:56:00 Document Registration [id number] 07/23/2012 15:29:00 Document Registration [id number] 04/16/2017 13:39:00 04/16/2017 23:59:59 CLS Outpatient DWAINE BENITO Via [facility] RAD K56.99 INTESTINAL OBSTRUCTION [id number] 01/12/2017 16:14:00 01/12/2017 18:53:00 DIS Emergency DINAH CONTEH DO Via [facility] ER UTI/RASH/DIARRHEA [id number] 12/24/2016 08:06:00 12/24/2016 23:59:59 CLS Preadmit SANDOVAL BUSTAMANET MD Via [facility] RAD HEMATURIA [id number] 12/24/2016 00:22:00 12/24/2016 23:59:59 CLS Preadmit DWAINE BENITO Via [facility] SDC RECURRENT RESISTANT UTI [id number] 12/23/2016 21:42:00 12/24/2016 02:32:00 DIS Emergency ALYSIA CASTRO MD Via [facility] ER RT SIDED ABDOMINAL PAIN [id number] 09/30/2016 15:53:00 12/23/2016 00:01:00 DIS Outpatient DWAINE BENITO Via [facility] SDC RECURRENT RESISTANT UTI [id number] 10/17/2016 21:54:00 10/18/2016 01:50:00 DIS Emergency RAFI MORRISON, BEST Castillo Via [facility] ER CHEST PAINS [id number] 09/21/2016 18:50:00 09/21/2016 21:35:00 DIS Emergency SHIRLEY KIRKPATRICK MD Via [facility] ER UTI SYMPTOMS [id number] 05/16/2016 19:10:00 05/20/2016 13:17:00 DIS Inpatient BING MORRISON, HONG Alba Via [facility] 4TH CONSTIPATION [id number] 05/16/2016 18:21:00 05/16/2016 18:21:00 CAN Preadmit SHIRLEY KIRKPATRICK MD Via [facility] ER CONSTIPATION [id number] 05/14/2016 15:44:00 05/14/2016 18:51:00 DIS Emergency SHIRLEY KIRKPATRICK MD Via [facility] ER CONSTIPATION [id number] 05/05/2016 00:10:00 05/05/2016 23:59:59 CLS Preadmit JOVAN CASON MD Via [facility] UTI [id number] 02/08/2016 15:15:00 05/04/2016 00:01:00 DIS Outpatient JOVAN CASON MD Via [facility] UTI [id number] 04/26/2016 19:13:00 04/26/2016 22:17:00 DIS Emergency ALYSIA CASTRO MD Via [facility] ER CATHETER ISSUES, NOT FLOWING [id number] 01/30/2016 15:32:00 01/30/2016 17:32:00 DIS Emergency MAIKEL ZHANG MD Via [facility] ER UTI [id number] 07/31/2015 17:03:00 07/31/2015 18:35:00 DIS Emergency ADALID HANLEY DO [facility] ER [id number] 07/19/2015 01:38:00 07/19/2015 03:06:00 DIS Emergency SHIRLEY KIRKPATRICK MD Via [facility] ER [id number] 05/29/2015 17:47:00 05/29/2015 19:17:00 DIS Emergency WERO DODINAH [facility] ER [id number] 08/22/2014 13:25:00 08/22/2014 15:11:00 DIS Emergency MATTHEW MORRISON, ALYSIA Rushing [facility] ER [id number] 03/01/2014 20:13:00 03/02/2014 19:45:00 DIS Inpatient GILBERTO PRICE DO Via [facility] CSD [id number] 02/27/2014 11:35:00 02/27/2014 16:27:00 DIS Emergency WERO DODINAH [facility] ER [id number] 11/22/2013 16:34:00 11/22/2013 23:59:59 CLS Outpatient DWAINE BENITO [facility] RAD [id number] 10/20/2013 16:05:00 10/20/2013 23:59:59 CLS Outpatient RYAN MORRISON, APOLLO Castillo [facility] RAD [id number] 08/28/2013 14:46:00 08/28/2013 15:40:00 DIS Emergency BING MORRISON, HONG Alba Via [facility] ER [id number] 12/10/2012 14:49:00 12/10/2012 23:59:59 CLS Outpatient RAYMOND MORRISON, YE Robles Via [facility] RAD [id number] 04/23/2017 10:41:00 Document Registration [id number] 04/22/2017 22:37:00 Document Registration [id number] 04/17/2017 20:02:00 ACT Inpatient JOVAN CASON MD Via [address] CONSTIPATION [id number] 08/22/2014 14:35:00 Document Registration [id number] 03/07/2012 00:00:00 Document Registration [id number] 02/04/2012 00:00:00 Document Registration [id number] 12/29/2011 14:30:00 Document Registration [id number] 12/13/2011 11:08:00 Document Registration [id number] 12/05/2011 14:44:00 Document Registration [id number] 09/13/2011 13:30:00 Document Registration [id number] 09/03/2011 20:35:00 Document Registration [id number] 06/18/2011 20:18:00 Document Registration [id number] 04/01/2011 13:51:00 Document Registration [id number] 12/24/2010 20:32:00 Document Registration [id number] 12/10/2010 20:25:00 Document Registration [id number] 11/25/2010 21:35:00 Document Registration [id number] 11/12/2010 21:05:00 Document Registration [id number] 10/23/2010 19:59:00 Document Registration [id number] 10/07/2010 00:22:00 Document Registration [id number] 09/30/2010 20:46:00 Document Registration [id number] 09/27/2010 17:03:00 Document Registration [id number] 09/16/2010 20:43:00 Document Registration [id number] 08/09/2010 13:21:00 Document Registration [id number] 06/03/2010 19:21:00 Document Registration [id number] 05/17/2010 15:29:00 Document Registration [id number] 05/06/2010 19:00:00 Document Registration [id number] 02/04/2010 17:15:00 Document Registration [id number] 01/08/2010 15:39:00 Document Registration [id number] 12/17/2009 01:35:00 Document Registration [id number] 11/29/2009 13:35:00 Document Registration [id number] 11/09/2009 14:00:00 Document Registration [id number] 11/08/2009 09:17:00 Document Registration [id number] 14:48:00 Document Registration [id number] 08/10/2009 15:30:00 Document Registration [id number] 06/26/2009 14:24:00 Document Registration [id number] 06/07/2009 15:19:00 Document Registration [id number] 05/07/2009 18:00:00 Document Registration [id number] 03/06/2009 14:46:00 Document Registration [id number] 02/08/2009 17:00:00 Document Registration [id number] 01/19/2009 16:38:00 Document Registration [id number] 01/16/2009 13:11:00 Document Registration [id number] 01/13/2009 14:36:00 Document Registration [id number] 11/07/2008 15:18:00 Document Registration [id number] 10/31/2008 13:51:00 Document Registration [id number] 10/16/2008 11:32:00 Document Registration
== END 2017-04-23 00:42 | disposition home or self-care (01) ==
LOC: EDUNIT# 20:28 → ER 20:33
DX: J10.1 Influenza due to other identified influenza virus with other respiratory manifestations (principal); M81.0 Age-related osteoporosis without current pathological fracture; E11.9 Type 2 diabetes mellitus without complications; F41.9 Anxiety disorder, unspecified; F17.210 Nicotine dependence, cigarettes, uncomplicated; Z79.84 Long term (current) use of oral hypoglycemic drugs; Z98.1 Arthrodesis status; Z80.3 Family history of malignant neoplasm of breast; Z87.01 Personal history of pneumonia (recurrent); Z87.448 Personal history of other diseases of urinary system; Z87.19 Personal history of other diseases of the digestive system
CPT/HCPCS: 71045; 87804; 94640; 99283

== ENCOUNTER 2017-04-23 09:46 | Inpatient (IN) | payer MEDICAID ==
[~2017-04-23] VITALS: Ht 154.9 cm; Wt 61.2 kg
--- NOTE | 2017-04-23 10:11 | ED General ---
General Stated Complaint: SOA Source of Information: Patient, EMS Exam Limitations: No Limitations History of Present Illness Time Seen by Provider: 10:00 Initial Comments Here with report of shortness of air that has worsened this morning. Seen last night and diagnosed with influenza B. Initiated on Tamiflu at that time. We' ll get this morning short of breath and use the albuterol inhaler that she was provided. She states that that didn't work and EMS was called. Initial O2 sat at the house was 92 percent. Patient is febrile this morning and initial O2 sat here was 87 percent on room air and this was after a DuoNeb treatment by EMS. Denies nausea and vomiting. She was in the hospital for several days for profound constipation and discharged yesterday. States the constipation problems or improved. Denies nausea or vomiting. Does complain of muscle aches and overall weakness. Timing/Duration: 24 Hours Severity: Moderate Associated Systoms: Cough, Fever/Chills, No Headaches, No Nausea/Vomiting, Shortness of Air, Weakness Allergies and Home Medications Allergies Coded Allergies: Sulfa (Sulfonamide Antibiotics) (Unverified Allergy, Mild, 07/29/08) Iodinated Contrast- Oral and IV Dye (Verified Allergy, Unknown, 07/30/08) latex (Verified Allergy, Unknown, 07/30/08) povidone-iodine (Unverified Allergy, Unknown, 08/28/13) soap (Unverified Allergy, Unknown, 08/28/13) Uncoded Allergies: CONTRAST DYE (Allergy, Mild, 07/29/08) EES (Allergy, Mild, 07/29/08) Home Medications Alprazolam 0.5 Mg Tablet, 0.5 MG PO TID PRN for ANXIETY, (Reported) Biotin 1,000 Mcg Tab.chew, 2,000 MCG PO DAILY, (Reported) TAKES 2 (1,000 MCG) GUMMIES Cephalexin 500 Mg Capsule, 500 MG PO QID for 5 Days, #20 Ref 0 Prescribed by: NILO JONES on 04/20/17 1140 Cranberry Conc/Ascorbic Acid 1 Each Capsule, 2 CAP PO HS, (Reported) Fluticasone Propionate 16 Gm [place].susp, 1 SPRAY NS DAILY, (Reported) L.acidoph & Paracasei,B.lactis 1 Each Capsule, 2 CAP PO HS, (Reported) Metformin HCl 500 Mg Tablet, 250 MG PO BID, (Reported) TAKES 1/2 OF A (500 MG) TABLET Multivitamin 1 Each Tablet, 1 TAB PO DAILY, (Reported) Oxycodone HCl/Acetaminophen 1 Each Tablet, 1 TAB PO Q4H PRN for PAIN-MODERATE, ( Reported) Constitutional: see HPI, chills, fever, malaise, weakness EENTM: nose congestion, No throat pain Respiratory: short of breath, wheezing Cardiovascular: No chest pain, No edema Gastrointestinal: No abdominal pain, No nausea, No vomiting Genitourinary: no symptoms reported Musculoskeletal: no symptoms reported All Other Systems Reviewed Negative Unless Noted: Yes Past Hfoksqh-Pyqevl-Kxbgwf Hx Patient Social History Alcohol Use: Occasionally Uses Alcohol Beverage of Choice: Wine Smoking Status: Former Smoker Type Used: Cigarettes Former Smoker, Quit: Apr 13, 2017 2nd Hand Smoke Exposure: Yes Recent Hopitalizations: No Immunizations Up To Date Tetanus Booster (TDap): Unknown Date of Pneumonia Vaccine: Feb 28, 2011 Date of Influenza Vaccine: Mar 02, 2016 Seasonal Allergies Seasonal Allergies: Yes Surgeries History of Surgeries: Yes (HEEL CORD LENGTHENING, SPINAL FUSION, ischial tuberocity wound) Surgeries: Gallbladder, Orthopedic Respiratory History of Respiratory Disorde: Yes Respiratory Disorders: Pneumonia Currently Using CPAP: No Currently Using BIPAP: No Cardiovascular History of Cardiac Disorders: No Neurological History of Neurological Disord: Yes ([id number], NON-AMBULATORY) Reproductive System Hx Reproductive Disorders: Yes 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 Genitourinary History of Genitourinary Disor: Yes Genitourinary Disorders: Kidney Stones, Neurogenic Bladder, UTI-Chronic Gastrointestinal History of Gastrointestinal Di: Yes Gastrointestinal Disorders: Colitis, Chronic Diarrhea, Ulcer Musculoskeletal History of Musculoskeletal Dis: Yes ([id number] AND IS NON-AMBULATORY) Musculoskeletal Disorders: Osteoporosis, Arthritis, Fractures Endocrine History of Endocrine Disorders: Yes Endocrine Disorders: Diabetes, Non-Insulin dep HEENT History of HEENT Disorders: No Loss of Vision: Denies Hearing Impairment: Denies Cancer History of Cancer: No Psychosocial History of Psychiatric Problem: Yes Behavioral Health Disorders: Anxiety Integumentary History of Skin or Integumenta: Yes (CHRONIC SACRAL DECUB ULCER SINCE 2008) Blood Transfusions History of Blood Disorders: No Adverse Reaction to a Blood Tr: No Reviewed Nursing Assessment Reviewed/Agree w Nursing PMH: Yes Family Medical History Family Medial History: FH: breast cancer 19 MOTHER, Onset:Unknown FH: pneumonia 19 FATHER, Onset:60 years & older Gout 19 FATHER, Onset:Unknown Hypertension 19 FATHER, Onset:Unknown Physical Exam-Suspected Sepsis Physical Exam Vital Signs Vital Sign - Last 12Hours 04/23/17 04/23/17 04/23/17 09:46 09:50 11:31 Temp 100.5 Pulse 98 Resp 24 B/P (MAP) 117/75 (89) Pulse Ox 92 O2 Delivery Room Air O2 Flow Rate 3.00 FiO2 50 Capillary Refill : General Appearance: WD/WN, Mild Distress HEENT: PERRL/EOMI (respiratory), Pharynx Normal Neck: Non Tender, Supple Respiratory: No Accessory Muscle Use, Decreased Breath Sounds (this summer that ), Wheezing Cardiovascular: Regular Rate, Rhythm, No Murmur Gastrointestinal: Non Tender, Soft Back: Normal Inspection, No CVA Tenderness, No Vertebral Tenderness Extremity: Normal Range of Motion, Non Tender Neurologic/Psychiatric: Alert, Oriented x3 Skin: normal color, warm/dry Focused Exam Evaluation Lactate Level Laboratory Tests 04/23/17 10:15: Lactic Acid Level 0.84 Lactic Acid Level Laboratory Tests Test 04/23/17 10:15 Lactic Acid Level 0.84 MMOL/L (0.50-2.00) Progress/Results/Core Measures Suspected Sepsis SIRS Temperature: Pulse: Respiratory Rate: Laboratory Tests 04/23/17 10:15: White Blood Count 6.2 Blood Pressure / Mean: Laboratory Tests 04/23/17 10:15: Lactic Acid Level 0.84 Laboratory Tests 04/23/17 10:15: Creatinine 0.43L, INR Comment 0.9, Platelet Count 158, Total Bilirubin 0.3 Results/Orders Lab Results Laboratory Tests Test 04/23/17 10:15 Range/Units White Blood Count 6.2 4.3-11.0 10^3/uL Red Blood Count 4.27 L 4.35-5.85 10^6/uL Hemoglobin 13.4 11.5-16.0 G/DL Hematocrit 40 35-52 % Mean Corpuscular Volume 94 80-99 FL Mean Corpuscular Hemoglobin 31 25-34 PG Mean Corpuscular Hemoglobin Concent 33 32-36 G/DL Red Cell Distribution Width 14.7 H 10.0-14.5 % Platelet Count 158 130-400 10^3/uL Mean Platelet Volume 10.1 7.4-10.4 FL Neutrophils (%) (Auto) 63 42-75 % Lymphocytes (%) (Auto) 23 12-44 % Monocytes (%) (Auto) 13 H 0-12 % Eosinophils (%) (Auto) 1 0-10 % Basophils (%) (Auto) 0 0-10 % Neutrophils # (Auto) 3.9 1.8-7.8 X 10^3 Lymphocytes # (Auto) 1.5 1.0-4.0 X 10^3 Monocytes # (Auto) 0.8 0.0-1.0 X 10^3 Eosinophils # (Auto) 0.0 0.0-0.3 10^3/uL Basophils # (Auto) 0.0 0.0-0.1 10^3/uL Prothrombin Time 12.2 12.2-14.7 SEC INR Comment 0.9 0.8-1.4 Activated Partial Thromboplast Time 22 L 24-35 SEC Sodium Level 137 135-145 MMOL/L Potassium Level 3.5 L 3.6-5.0 MMOL/L Chloride Level 96 L 98-107 MMOL/L Carbon Dioxide Level 26 21-32 MMOL/L Anion Gap 15 H 5-14 MMOL/L Blood Urea Nitrogen 9 7-18 MG/DL Creatinine 0.43 L 0.60-1.30 MG/DL Estimat Glomerular Filtration Rate > 60 BUN/Creatinine Ratio 21 Glucose Level 88 70-105 MG/DL Lactic Acid Level 0.84 0.50-2.00 MMOL/L Calcium Level 9.1 8.5-10.1 MG/DL Total Bilirubin 0.3 0.1-1.0 MG/DL Aspartate Amino Transf (AST/SGOT) 96 H 5-34 U/L Alanine Aminotransferase (ALT/SGPT) 62 H 0-55 U/L Alkaline Phosphatase 62 40-136 U/L Total Protein 7.3 6.4-8.2 GM/DL Albumin 3.8 3.2-4.5 GM/DL My Orders Orders - SHIRLEY KIRKPATRICK MD Cbc With Automated Diff (04/23/17 10:00) Comprehensive Metabolic Panel (04/23/17 10:00) Lactic Acid Analyzer (04/23/17 10:00) Blood Culture (04/23/17 10:00) Sputum Culture (04/23/17 10:00) Protime With Inr (04/23/17 10:00) Partial Thromboplastin Time (04/23/17 10:00) Chest 1 View, Ap/Pa Only (04/23/17 10:00) O2 (04/23/17 10:00) Vital Signs Adult Sepsis Patie Q1H (04/23/17 10:00) Remove Rings In Anticipation O (04/23/17 10:00) Albuterol Pre-Mix Nebs (Rt) (Proventil (04/23/17 10:14) Albuterol Pre-Mix Nebs (Rt) (Proventil (04/23/17 10:29) Svn Sm Volume Nebulizer Rt-Rfs (04/23/17 10:29) Acetaminophen Tablet (Tylenol Tablet) (04/23/17 10:30) Albuterol Pre-Mix Nebs (Rt) (Proventil (04/23/17 10:29) Acetaminophen Tablet/Caplet (Tylenol T (04/23/17 10:33) Lorazepam Injection (Ativan Injection) (04/23/17 10:45) Prednisone Tablet (Deltasone Tablet) (04/23/17 11:30) Medications Given in ED Current Medications Medications Dose Ordered Sig/Bo Route Start Time Stop Time Status Last Admin Dose Admin Acetaminophen 650 mg ONCE ONCE PO 04/23/17 10:30 04/23/17 10:32 DC 04/23/17 10:39 650 MG Albuterol Sulfate 2.5 mg STK-MED ONCE .ROUTE 04/23/17 10:14 04/23/17 10:17 DC 04/23/17 10:19 2.5 MG Lorazepam 0.5 mg ONCE ONCE IVP 04/23/17 10:45 04/23/17 10:46 DC 04/23/17 10:48 0.5 MG Vital Signs/I&O Vital Sign - Last 12Hours 04/23/17 04/23/17 04/23/17 04/23/17 09:46 09:50 10:19 10:39 Temp 100.5 100.5 Pulse 98 Resp 24 B/P (MAP) 117/75 (89) Pulse Ox 92 92 94 O2 Delivery Room Air Nasal Cannula O2 Flow Rate 3.00 2.00 04/23/17 04/23/17 10:40 11:31 Temp 100.5 Pulse Ox 94 O2 Delivery Vapotherm O2 Flow Rate 20.00 FiO2 50 Capillary Refill : Progress Note : Progress Note Seen and evaluated. Sepsis protocol initiated. Patient did require O2 was placed at 2 L via nasal cannula. Albuterol neb ordered. Patient did receive Tamiflu last night but did not bring it back with her today. We will attempt to get the 5 day pack that she was started on last night. Patient will require admission due to hypoxia requiring oxygen and she is very high risk related to her underlying comorbidities for significant pneumonia or sequela from influenza. Pending labs and x-ray. Monitor patient. Patient received a second albuterol neb and actually became more short of breath. 02 increased to 3 L via nasal cannula. Ativan 0.5 mg IV given. Monitor patient. 1119: Patient 's O2 saturations 88-90 percent on 3 L. I did order Vapotherm. I did discuss the case with Dr. Nilo Jones. She will admit the patient, inpatient status for respiratory distress and influenza. Anticipate admission to med telemetry if Vapotherm proves to be effective. 1158: O2 sats 95-96 percent and better after they put their initiation. Admit, inpatient status to bed telemetry. Patient agrees with plan. Prednisone 40 mg by mouth initiated. Diagnostic Imaging Diagonstic Imaging: Xray Plain Films/CT/US/NM/MRI: chest Comments NAME: LEW GUZMAN [facility] REC#: [id number] PT STATUS: REG ER : 1960 PHYSICIAN: SHIRLEY KIRKPATRICK MD ADMIT DATE: 04/23/17/ER Signed Date of Exam: 04/23/17 CHEST 1 VIEW, AP/PA ONLY INDICATION: Lower respiratory infection EXAM: Portable chest at 10:28 AM FINDINGS: Heart size and pulmonary vascularity are normal. The lungs are clear. There are no effusions or pneumothoraces. IMPRESSION: Negative chest. Dictated by: Dictated on workstation # [id number] Dict: 04/23/17 1042 Trans: 04/23/17 1108 Interpreted by: SHIRLEY DREW MD Electronically signed by: SHIRLEY DREW MD 04/23/17 1108 Departure Communication (Admissions) Time/Spoke to Admitting Phy: 11:19 Impression Impression: Primary Impression: Respiratory distress Additional Impressions: Influenza B Hypoxia Disposition: ADMITTED INPATIENT Condition: Stable Admissions Decision to Admit Reason: Admit from ER (General) Decision to Admit/Date: Apr 23, 2017 Time/Decision to Admit Time: 11:19 Departure-Patient Inst. Referrals: GILBERTO PRICE DO (PCP) Primary Care Physician DWAINE BENITO (Family) Primary Care Physician SHIRLEY KIRKPATRICK MD Apr 23, 2017 10:11
[2017-04-23] MEDS ORDERED: RT-ALBUTEROL SULF 2.5 MG/3 ML PRE-MIX VIAL ONE ×2 (10:14→10:29)
[2017-04-23] MEDS ORDERED: RT-ALBUTEROL SULF 2.5 MG/3 ML PRE-MIX VIAL INH STA (10:29)
[2017-04-23] MEDS ORDERED: ACETAMINOPHEN 500 MG TAB (TYLENOL) PO ONE (10:30)
[2017-04-23] MEDS ORDERED: ACETAMINOPHEN 325 MG TABLET/CAPLET (TYLENOL) ONE (10:33)
[2017-04-23 10:37] LABS: BASOPHILS % (AUTO) 0 % (0-10); EOSINOPHILS % (AUTO) 1 % (0-10); HEMATOCRIT 40 % (35-52); HEMOGLOBIN 13.4 G/DL (11.5-16.0); LYMPHOCYTES # (AUTO) 1.5 X 10^3 (1.0-4.0); LYMPHOCYTES % (AUTO) 23 % (12-44); MEAN CORPUSCULAR HEMOGLOBIN 31 PG (25-34); MEAN CORPUSCULAR HGB CONC 33 G/DL (32-36); MEAN CORPUSCULAR VOLUME 94 FL (80-99); MEAN PLATELET VOLUME 10.1 FL (7.4-10.4); MONOCYTES # (AUTO) 0.8 X 10^3 (0.0-1.0); MONOCYTES % (AUTO) 13 % (0-12); NEUTROPHILS # (AUTO) 3.9 X 10^3 (1.8-7.8); NEUTROPHILS % (AUTO) 63 % (42-75); PLATELET COUNT 158 10^3/uL (130-400); RED BLOOD COUNT 4.27 10^6/uL (4.35-5.85); RED CELL DISTRIBUTION WIDTH 14.7 % (10.0-14.5); WHITE BLOOD COUNT 6.2 10^3/uL (4.3-11.0)
[2017-04-23] MEDS ORDERED: LORazepam INJ 2 MG/ML (ATIVAN) VIAL IVP ONE (10:45)
--- NOTE | 2017-04-23 10:47 | Diagnostic Imaging Report ---
INDICATION: Lower respiratory infection EXAM: Portable chest at 10:28 AM FINDINGS: Heart size and pulmonary vascularity are normal. The lungs are clear. There are no effusions or pneumothoraces. IMPRESSION: Negative chest. Dictated by: Dictated on workstation # [id number]
[2017-04-23 10:58] LABS: INR 0.9 (0.8-1.4); PROTHROMBIN TIME PATIENT 12.2 SEC (12.2-14.7)
[2017-04-23 11:01] LABS: ALANINE AMINOTRANSFERASE 62 U/L (0-55); ALBUMIN 3.8 GM/DL (3.2-4.5); ALKALINE PHOSPHATASE 62 U/L (40-136); BILIRUBIN,TOTAL 0.3 MG/DL (0.1-1.0); BUN/CREATININE RATIO 21; CALCIUM 9.1 MG/DL (8.5-10.1); CARBON DIOXIDE 26 MMOL/L (21-32); CHLORIDE 96 MMOL/L (98-107); CREATININE SERUM 0.43 MG/DL (0.60-1.30); GFR ESTIMATED > 60; GLUCOSE 88 MG/DL (70-105); POTASSIUM 3.5 MMOL/L (3.6-5.0); SODIUM 137 MMOL/L (135-145); TOTAL PROTEIN 7.3 GM/DL (6.4-8.2)
[2017-04-23] MEDS ORDERED: predniSONE 20 MG TAB PO ONE (11:30)
[2017-04-23] MEDS ORDERED: OSLT75C PO (13:12)
[2017-04-23] MEDS ORDERED: LORazepam INJ 2 MG/ML (ATIVAN) VIAL IV PRN (13:30)
[2017-04-23] MEDS ORDERED: CATHETER FLUSH 10 ML SYR IV PRN (13:30)
[2017-04-23] MEDS: NS IV 1000 ML 1,000 ML IV SCH (14:14)
[2017-04-23 16:00] VITALS: BP 112/52
[2017-04-23] MEDS: CEPHALEXIN 250 MG (KEFLEX) CAP PO SCH ×2 (17:42→20:42)
[2017-04-23] MEDS: metFORMIN 500 MG (GLUCOPHAGE) TAB PO SCH (17:42)
[2017-04-23] MEDS: oxyCODONE/APAP 10/325MG (PERCOCET 10) TABLET PO PRN ×2 (17:51→23:33)
[2017-04-23] MEDS: RT-ALBUTEROL/IPRATROPIUM 3 ML (DUONEB) VIAL INH SCH ×2 (19:08→22:41)
[2017-04-23 19:51] VITALS: BP 120/58
--- OUTSIDE RECORDS SUMMARY | 2017-04-23 20:21 | XMS REPORT | Clinical Summary ---
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 If you do not see the information that you expected, contact Release of Information in the Health Information Management department at [phone] for further assistance in locating additional records.[facility] Allergies Active Allergy Reactions Severity [...] Taken Blood Pressure 114/70 03/31/2009 6:00 AM HOME CARE ATTENDANT Pulse 80 03/31/2009 6:00 AM HOME CARE ATTENDANT Temperature 36.6 C (97.9 F) 03/31/2009 6:00 AM HOME CARE ATTENDANT Respiratory Rate - - Oxygen Saturation 95% 03/31/2009 6:00 AM HOME CARE ATTENDANT Inhaled Oxygen - - Concentration Weight 68.1 kg (150 lb 2.1 oz) 03/23/2009 3:00 PM HOME CARE ATTENDANT Height 154.9 cm (5' 1") 03/23/2009 3:00 PM HOME CARE ATTENDANT Body Mass Index 28.37 03/23/2009 3:00 PM HOME CARE ATTENDANT Plan of Treatment Health Maintenance Due Date Last Done Comments HEPATITIS C SCREENING 1958 PHYSICAL (COMPREHENSIVE) 1965 EXAM PERTUSSIS VACCINE 1969 TETANUS VACCINE 11/03/1975 CERVICAL CANCER SCREENING 1988 BREAST CANCER SCREENING 1998 COLORECTAL CANCER 2008 SCREENING INFLUENZA VACCINE 11/11/2016 Results Not on filefrom Last 3 Months
--- OUTSIDE RECORDS SUMMARY | 2017-04-23 20:34 | XMS REPORT | Continuity of Care Document ---
Author Author [facility] Address Unknown Phone Unavailable Allergies Active Description Code Type Severity Reaction Onset Reported/Identified Relationship to Patient Clinical Status Yes CONTRAST DYE CONTRAST DYE Mild N/A 07/29/2008 Yes EES EES Mild N/A 07/29/2008 Yes Sulfa (Sulfonamide Antibiotics) [id number] Drug Allergy Mild N/A 2008 Yes Iodinated Contrast Media - IV Dye [id number] Drug Allergy Unknown N/A 07/30 Yes Iodinated Contrast Media - Oral and [id number] Drug Allergy Unknown N/A Yes Iodinated Contrast- Oral and IV Dye [id number] Drug Allergy Unknown N/A Yes latex [id number] Drug Allergy Unknown N/A 07/30/[address] [...] mg tablet Drug Allergy 04/19/2012 Yes povidone-iodine [id number] Drug Allergy Unknown N/A 08/28/2013 Yes Soap [id number] Drug Allergy Unknown N/A 08/28/2013 Medications There [...] APRN 250.00 DIABETES MELLITUS TYPE 2 06/03/2010 DWANIE BENITO APRN 356.1 PERONEAL MUSCULAR ATROPHY 06/03/2010 [...] MUSCULAR ATROPHY 06/03/2010 780.79 FATIGUE 06/03/2010 THONG STICK PULLER, DWAINE T 250.00 DIABETES MELLITUS TYPE 2 [...] MD 250.00 DIABETES MELLITUS TYPE 2 06/03/2010 NEDIA TALBOT MD 356.1 PERONEAL MUSCULAR ATROPHY 06/03/2010 [...] T 356.1 PERONEAL MUSCULAR ATROPHY 06/03/2010 THONG STICK PULLER, DWAINE T 780.79 FATIGUE 06/03/2010 THONG STICK PULLER, DWAINE T 250.00 DIABETES MELLITUS TYPE 2 06/03/2010 THONG SAAVEDRAN, DWAINE T 356.1 PERONEAL MUSCULAR ATROPHY 06/03/2010 THONG STICK PULLER, DWAINE T 780.79 FATIGUE 06/03/2010 THONG STICK PULLER, DWAINE T 250.00 DIABETES MELLITUS TYPE 2 06/03/2010 TOHNG SAAVEDRAN, DWAINE T 356.1 PERONEAL MUSCULAR ATROPHY 06/03/2010 THONG SAAVEDRAN, DWAINE T 780.79 FATIGUE 06/03/2010 THONG STICK PULLER, DWAINE T 250.00 DIABETES MELLITUS TYPE 2 [...] 250.00 DIABETES MELLITUS TYPE 2 06/03/2010 THONG STICK PULLER, DWAINE T 356.1 PERONEAL MUSCULAR ATROPHY 06/03/2010 [...] THONG HODGES DWAINE T 780.79 FATIGUE 06/03/2010 THNOG HODGES DWAINE T 250.00 DIABETES MELLITUS TYPE [...] T 356.1 PERONEAL MUSCULAR ATROPHY 06/03/2010 THONG STICK PULLER, DWAINE T 780.79 FATIGUE 06/03/2010 THONG HODGES, [...] 250.00 DIABETES MELLITUS TYPE 2 06/03/2010 THONG STICK PULLER, DWAINE T 356.1 PERONEAL MUSCULAR ATROPHY 06/03/2010 THONG SAAVEDRAN, DWAINE T 780.79 FATIGUE 06/03/2010 PRICE DO, GILBERTO K 250.00 DIABETES MELLITUS TYPE 2 06/03/2010 PRICE DO, GILBETRO K 356.1 PERONEAL MUSCULAR ATROPHY 06/03/2010 PRICE [...] HODGES DWAINE T 780.79 FATIGUE 06/03/2010 THONG STICK PULLER, DWAINE T 250.00 DIABETES MELLITUS TYPE 2 [...] MD 268.9 VITAMIN D DEFICIENCY 06/28/2010 THONG STICK PULLER, DWIANE T 268.9 VITAMIN D DEFICIENCY 06/28/2010 THONG STICK PULLER DWAINE T 268.9 VITAMIN D DEFICIENCY 06/28/2010 THONG STICK PULLER DWAINE T 268.9 VITAMIN D DEFICIENCY 06/28/2010 THONG STICK PULLER, DWAINE T 268.9 VITAMIN D DEFICIENCY 06/28/2010 THONG STICK PULLER, DWAINE T 268.9 VITAMIN D DEFICIENCY 06/28/2010 THONG STICK PULLER, DWAINE T 268.9 VITAMIN D DEFICIENCY 06/28/2010 THONG STICK PULLER DWAINE T 268.9 VITAMIN D DEFICIENCY 06/28/2010 THONG STICK PULLER DWAINE T 268.9 VITAMIN D DEFICIENCY 06/28/2010 RAYMOND MORRISON, YE Robles 268.9 VITAMIN D DEFICIENCY 06/28/2010 THONG STICK PULLER DWAINE T 268.9 VITAMIN D DEFICIENCY 06/28/2010 [...] 268.9 VITAMIN D DEFICIENCY 06/28/2010 THONG HODGES WDAINE T 268.9 VITAMIN D DEFICIENCY 06/28/2010 DWAINE [...] APRN T 268.9 VITAMIN D DEFICIENCY 07/02/2010 DWANIE BENITO APRN T 272.4 HYPERLIPIDEMIA 07/02/2010 NEIDA TALBOT MD 272.4 HYPERLIPIDEMIA 07/02/2010 272.4 HYPERLIPIDEMIA 07/02/2010 PRICE DO, GILBERTO K 272.4 HYPERLIPIDEMIA 07/02/2010 DWAINE BENITO APRN T 272.4 HYPERLIPIDEMIA 07/02/2010 272.4 HYPERLIPIDEMIA 07/02/2010 272.4 HYPERLIPIDEMIA 07/02/2010 DWAINE BENITO APRN T 272.4 HYPERLIPIDEMIA 07/02/2010 272.4 HYPERLIPIDEMIA 07/02/2010 272.4 HYPERLIPIDEMIA 07/02/2010 THONG STICK PULLER, DWAINE T 272.4 HYPERLIPIDEMIA 07/02/2010 272.4 HYPERLIPIDEMIA 07/02/2010 272.4 HYPERLIPIDEMIA 07/02/2010 272.4 HYPERLIPIDEMIA 07/02/2010 272.4 HYPERLIPIDEMIA 07/02/2010 272.4 HYPERLIPIDEMIA 07/02/2010 272.4 HYPERLIPIDEMIA 07/02/2010 272.4 HYPERLIPIDEMIA 07/02/2010 272.4 HYPERLIPIDEMIA 07/02/2010 272.4 HYPERLIPIDEMIA 07/02/2010 272.4 HYPERLIPIDEMIA 07/02/2010 272.4 HYPERLIPIDEMIA 07/02/2010 THONG STICK PULLER, DWAINE T 272.4 HYPERLIPIDEMIA 07/02/2010 THONG STICK PULLER, DWAINE T 272.4 HYPERLIPIDEMIA 07/02/2010 NEIDA TALBOT MD 272.4 HYPERLIPIDEMIA 07/02/2010 THONG STICK PULLER, DWAINE T 272.4 HYPERLIPIDEMIA 07/02/2010 NEIDA TALBOT MD 272.4 HYPERLIPIDEMIA 07/02/2010 THONG STICK PULLER, DWAINE T 272.4 HYPERLIPIDEMIA 07/02/2010 NEIDA TALBOT MD 272.4 HYPERLIPIDEMIA 07/02/2010 THONG STICK PULLER, DWAINE T 272.4 HYPERLIPIDEMIA 07/02/2010 THONG STICK PULLER, DWAINE T 272.4 HYPERLIPIDEMIA 07/02/2010 THONG STICK PULLER, DWAINE T 272.4 HYPERLIPIDEMIA 07/02/2010 THONG STICK PULLER, DWAINE T 272.4 HYPERLIPIDEMIA 07/02/2010 THONG STICK PULLER, DWAINE T 272.4 HYPERLIPIDEMIA 07/02/2010 THONG STICK PULLER, DWAINE T 272.4 HYPERLIPIDEMIA 07/02/2010 THONG STICK PULLER, DWAINE T 272.4 HYPERLIPIDEMIA 07/02/2010 THONG STICK PULLER, DWAINE T 272.4 HYPERLIPIDEMIA 07/02/2010 YE ANDRADE MD 272.4 HYPERLIPIDEMIA 07/02/2010 THONG STICK PULLER, DWAINE T 272.4 HYPERLIPIDEMIA 07/02/2010 THONG STICK PULLER, DWAINE T 272.4 HYPERLIPIDEMIA 07/02/2010 THONG STICK PULLER, DWAINE T 272.4 HYPERLIPIDEMIA 07/02/2010 THONG STICK PULLER, DWAINE T 272.4 HYPERLIPIDEMIA 07/02/2010 THONG STICK PULLER, DWAINE T 272.4 HYPERLIPIDEMIA 07/02/2010 THONG STICK PULLER, DWAINE T 272.4 HYPERLIPIDEMIA 07/02/2010 THONG STICK PULLER, DWAINE T 272.4 HYPERLIPIDEMIA 07/02/2010 THONG STICK PULLER, DWAINE T 272.4 HYPERLIPIDEMIA 07/02/2010 THONG STICK PULLER, DWAINE T 272.4 HYPERLIPIDEMIA 07/02/2010 NEIDA TALBOT MD 272.4 HYPERLIPIDEMIA 07/02/2010 THONG STICK PULLER, DWAINE T 272.4 HYPERLIPIDEMIA 07/02/2010 THONG STICK PULLER, DWAINE T 272.4 HYPERLIPIDEMIA 07/02/2010 THONG STICK PULLER, DWAINE T 272.4 HYPERLIPIDEMIA 07/02/2010 THONG STICK PULLER, DWAINE T 272.4 HYPERLIPIDEMIA 07/02/2010 THONG STICK PULLER, DWAINE T 272.4 HYPERLIPIDEMIA 07/02/2010 THONG STICK PULLER, DWAINE T 272.4 HYPERLIPIDEMIA 07/02/2010 THONG STICK PULLER, DWAINE T 272.4 HYPERLIPIDEMIA 07/02/2010 NEIDA TALBOT MD 272.4 HYPERLIPIDEMIA 07/02/2010 272.4 HYPERLIPIDEMIA 07/02/2010 THONG STICK PULLER, DWAINE T 272.4 HYPERLIPIDEMIA 07/02/2010 THONG STICK PULLER, DWAINE T 272.4 HYPERLIPIDEMIA 07/02/2010 THONG STICK PULLER, DWAINE T 272.4 HYPERLIPIDEMIA 07/02/2010 THONG STICK PULLER, DWAINE T 272.4 HYPERLIPIDEMIA 07/02/2010 THONG STICK PULLER, DWAINE T 272.4 HYPERLIPIDEMIA 07/02/2010 NEIDA TALBOT MD 272.4 HYPERLIPIDEMIA 07/02/2010 THONG STICK PULLER, DWAINE T 272.4 HYPERLIPIDEMIA 07/02/2010 THONG STICK PULLER, DWAINE T 272.4 HYPERLIPIDEMIA 07/02/2010 PRICE DO, GILBERTO K 272.4 HYPERLIPIDEMIA 07/02/2010 THONG STICK PULLER, DWAINE T 272.4 HYPERLIPIDEMIA 07/02/2010 THONG STICK PULLER, DWAINE T 272.4 HYPERLIPIDEMIA 07/02/2010 THONG STICK PULLER, DWAINE T 272.4 HYPERLIPIDEMIA 07/02/2010 THONG STICK PULLER, DWAINE T 272.4 HYPERLIPIDEMIA 07/02/2010 THONG STICK PULLER, DWAINE T 272.4 HYPERLIPIDEMIA 07/02/2010 PRICE DO, GILBERTO K 272.4 HYPERLIPIDEMIA 07/02/2010 THONG STICK PULLER, DWAINE T 272.4 HYPERLIPIDEMIA 07/02/2010 THONG STICK PULLER, DWAINE T 272.4 HYPERLIPIDEMIA 07/02/2010 THONG STICK PULLER, DWAINE T 272.4 HYPERLIPIDEMIA 07/02/2010 THONG STICK PULLER, DWAINE T 272.4 HYPERLIPIDEMIA 07/02/2010 THONG STICK PULLER, DWAINE T 272.4 HYPERLIPIDEMIA 07/02/2010 THONG STICK PULLER, DWAINE T 272.4 HYPERLIPIDEMIA 07/02/2010 THONG STICK PULLER, DWAINE T 272.4 HYPERLIPIDEMIA 07/02/2010 THONG STICK PULLER, DWAINE T 272.4 HYPERLIPIDEMIA 07/02/2010 THONG STICK PULLER, DWAINE T 272.4 HYPERLIPIDEMIA 07/02/2010 DWAINE BENITO [...] TALBOT MD V58.31 WOUND DRESSING 08/07/2010 THONG STICK PULLER, DWAINE T 707.05 CHRONIC CUTANEOUS ULCER DECUBITUS [...] CUTANEOUS ULCER DECUBITUS BUTTOCK 08/07/2010 THONG HODGES DWIANE T V58.31 WOUND DRESSING 08/07/2010 YE ANDRADE [...] CHRONIC CUTANEOUS ULCER DECUBITUS BUTTOCK 08/07/2010 THONG STICK PULLER, DWAINE T V58.31 WOUND DRESSING 08/07/2010 THONG [...] HODGES DWAINE T V58.31 WOUND DRESSING 08/07/2010 THOGN HODGES DWAINE T 707.05 CHRONIC CUTANEOUS ULCER [...] CHRONIC CUTANEOUS ULCER DECUBITUS BUTTOCK 08/07/2010 THONG HDOGES DWAINE T V58.31 WOUND DRESSING 08/07/2010 TOHNG HODGES DWAINE T 707.05 CHRONIC CUTANEOUS ULCER [...] HODGES DWAINE T 300.00 anxiety 08/14/2010 THONG STICK PULLER, DWAINE T 338.29 CHRONIC PAIN 08/14/2010 THONG STICK PULLER, DWAINE T 300.00 anxiety 08/14/2010 THONG STICK PULLER, DWAINE T 338.29 CHRONIC PAIN 08/14/2010 THONG STICK PULLER, DWAINE T 300.00 anxiety 08/14/2010 THONG STICK PULLER, DWAINE T 338.29 CHRONIC PAIN 08/14/2010 YE ANDRADE MD 300.00 anxiety 08/14/2010 YE ANDRADE MD 338.29 CHRONIC PAIN 08/14/2010 THONG STICK PULLER, DWAINE T 300.00 anxiety 08/14/2010 THONG STICK PULLER, DWAINE T 338.29 CHRONIC PAIN 08/14/2010 THONG STICK PULLER, DWAINE T 300.00 anxiety 08/14/2010 THONG SAAVEDRAN, DWAINE T 338.29 CHRONIC PAIN 08/14/2010 THONG SAAVEDRAN, DWAINE T 300.00 anxiety 08/14/2010 THONG HODGES DWAINE T 338.29 CHRONIC PAIN 08/14/2010 THONG HODGES, DWAINE T 300.00 anxiety 08/14/2010 THONG SAAVEDRAN DWAINE T 338.29 CHRONIC PAIN 08/14/2010 THONG STICK PULLER, DWAINE T 300.00 anxiety 08/14/2010 THONG STICK PULLER, DWAINE T 338.29 CHRONIC PAIN 08/14/2010 THONG STICK PULLER, DWAINE T 300.00 anxiety 08/14/2010 THONG STICK PULLER, DWAINE T 338.29 CHRONIC PAIN 08/14/2010 THONG STICK PULLER, DWAINE T 300.00 anxiety 08/14/2010 THONG STICK PULLER, DWAINE T 338.29 CHRONIC PAIN 08/14/2010 THONG HODGES, DWAINE T 300.00 anxiety 08/14/2010 THONG HODGES DWAINE T 338.29 CHRONIC PAIN 08/14/2010 THONG STICK PULLER, DWAINE T 300.00 anxiety 08/14/2010 THONG STICK PULLER, DWAINE T 338.29 CHRONIC PAIN 08/14/2010 NEIDA TALBOT MD 300.00 anxiety 08/14/2010 NEIDA TALBOT MD 338.29 CHRONIC PAIN 08/14/2010 THONG HODGES DWAINE T 300.00 anxiety 08/14/2010 THONG HOGDES, DWAINE T 338.29 CHRONIC PAIN 08/14/2010 THONG [...] DWAINE T 338.29 CHRONIC PAIN 08/14/2010 THONG STICK PULLER, DWAINE T 300.00 anxiety 08/14/2010 THONG STICK PULLER, DWAINE T 338.29 CHRONIC PAIN 08/14/2010 THONG STICK PULLER, DWAINE T 300.00 anxiety 08/14/2010 THONG STICK PULLER, DWAINE T 338.29 CHRONIC PAIN 08/14/2010 THONG STICK PULLER, DWAINE T 300.00 anxiety 08/14/2010 THONG STICK PULLER, DWAINE T 338.29 CHRONIC PAIN 08/14/2010 THONG STICK PULLER, DWAINE T 300.00 anxiety 08/14/2010 THONG STICK PULLER, DWAINE T 338.29 CHRONIC PAIN 08/14/2010 PRICE DO, GILBERTO K 300.00 anxiety 08/14/2010 PRICE DO, GILBERTO K 338.29 CHRONIC PAIN 08/14/2010 THONG STICK PULLER, DWAINE T 300.00 anxiety 08/14/2010 THONG STICK PULLER, DWAINE T 338.29 CHRONIC PAIN 08/14/2010 THONG STICK PULLER, DWAINE T 300.00 anxiety 08/14/2010 THONG STICK PULLER, DWAINE T 338.29 CHRONIC PAIN 08/14/2010 THONG STICK PULLER, DWAINE T 300.00 anxiety 08/14/2010 THONG STICK PULLER, DWAINE T 338.29 CHRONIC PAIN 08/14/2010 THONG STICK PULLER, DWAINE T 300.00 anxiety 08/14/2010 THONG STICK PULLER, DWAINE T 338.29 CHRONIC PAIN 08/14/2010 THONG STICK PULLER, DWAINE T 300.00 anxiety 08/14/2010 THONG STICK PULLER, DWAINE T 338.29 CHRONIC PAIN 08/14/2010 THONG STICK PULLER, DWAINE T 300.00 anxiety 08/14/2010 THONG STICK PULLER, DWAINE T 338.29 CHRONIC PAIN 08/14/2010 THONG STICK PULLER, DWAINE T 300.00 anxiety 08/14/2010 THONG STICK PULLER, DWAINE T 338.29 CHRONIC PAIN 08/14/2010 THONG STICK PULLER, DWAINE T 300.00 anxiety 08/14/2010 THONG STICK PULLER, DWAINE T 338.29 CHRONIC PAIN 08/14/2010 THONG STICK PULLER, DWAINE T 300.00 anxiety 08/14/2010 THONG STICK PULLER, DWAINE T 338.29 CHRONIC PAIN 08/14/2010 THONG STICK PULLER, DWAINE T 300.00 anxiety 08/14/2010 THONG STICK PULLER, DWAINE T 338.29 CHRONIC PAIN 09/17/2010 Ot [...] T 599.0 URINARY TRACT INFECTION 09/21/2010 THONG STICK PULLER, DWAINE T 599.0 URINARY TRACT INFECTION 09/21/2010 THONG STICK PULLER, DWAINE T 599.0 URINARY TRACT INFECTION 09/21/2010 THONG STICK PULLER, DWAINE T 599.0 URINARY TRACT INFECTION 09/21/2010 THONG STICK PULLER, DWAINE T 599.0 URINARY TRACT INFECTION 09/21/2010 RAYMOND MORRISON, YE M 599.0 URINARY TRACT INFECTION 09/21/2010 THONG STICK PULLER, DWAINE T 599.0 URINARY TRACT INFECTION 09/21/2010 THONG STICK PULLER, DWAINE T 599.0 URINARY TRACT INFECTION 09/21/2010 HTONG STICK PULLER, DWAINE T 599.0 URINARY TRACT INFECTION 09/21/2010 THONG STICK PULLER, DWAINE T 599.0 URINARY TRACT INFECTION 09/21/2010 THONG STICK PULLER, DWAINE T 599.0 URINARY TRACT INFECTION 09/21/2010 THONG STICK PULLER, DWAINE T 599.0 URINARY TRACT INFECTION 09/21/2010 THONG STICK PULLER, DWAINE T 599.0 URINARY TRACT INFECTION 09/21/2010 THONG STICK PULLER, DWAINE T 599.0 URINARY TRACT INFECTION 09/21/2010 THONG STICK PULLER, DWAINE T 599.0 URINARY TRACT INFECTION 09/21/2010 ANTIONE MORRISON, NEIDA 599.0 URINARY TRACT INFECTION 09/21/2010 THONG STICK PULLER, DWAINE T 599.0 URINARY TRACT INFECTION 09/21/2010 THONG STICK PULLER, DWAINE T 599.0 URINARY TRACT INFECTION 09/21/2010 THONG STICK PULLER, DWAINE T 599.0 URINARY TRACT INFECTION 09/21/2010 THONG STICK PULLER, DWAINE T 599.0 URINARY TRACT INFECTION 09/21/2010 THONG STICK PULLER, DWAINE T 599.0 URINARY TRACT INFECTION 09/21/2010 THONG STICK PULLER, DWAINE T 599.0 URINARY TRACT INFECTION 09/21/2010 THONG STICK PULLER, DWAINE T 599.0 URINARY TRACT INFECTION 09/21/2010 NEIDA TALBOT MD 599.0 URINARY TRACT INFECTION 09/21/2010 599.0 URINARY TRACT INFECTION 09/21/2010 THONG STICK PULLER, DWAINE T 599.0 URINARY TRACT INFECTION 09/21/2010 THONG STICK PULLER, DWAINE T 599.0 URINARY TRACT INFECTION 09/21/2010 THONG STICK PULLER, DWAINE T 599.0 URINARY TRACT INFECTION 09/21/2010 THONG STICK PULLER, DWAINE T 599.0 URINARY TRACT INFECTION 09/21/2010 THONG HODGES, DWAINE T 599.0 URINARY TRACT INFECTION 09/21/2010 NEIDA TALBOT MD 599.0 URINARY TRACT INFECTION 09/21/2010 THONG STICK PULLER, DWAINE T 599.0 URINARY TRACT INFECTION 09/21/2010 THONG STICK PULLER, DWAINE T 599.0 URINARY TRACT INFECTION 09/21/2010 PRICE DO, GILBERTO K 599.0 URINARY TRACT INFECTION 09/21/2010 THONG STICK PULLER, DWAINE T 599.0 URINARY TRACT INFECTION 09/21/2010 THONG STICK PULLER, DWAINE T 599.0 URINARY TRACT INFECTION 09/21/2010 THONG STICK PULLER, DWAINE T 599.0 URINARY TRACT INFECTION 09/21/2010 THONG STICK PULLER, DWAINE T 599.0 URINARY TRACT INFECTION 09/21/2010 THONG STICK PULLER, DWAINE T 599.0 URINARY TRACT INFECTION 09/21/2010 PRICE DO, GILBERTO K 599.0 URINARY TRACT INFECTION 09/21/2010 THONG STICK PULLER, DWAINE T 599.0 URINARY TRACT INFECTION 09/21/2010 THONG STICK PULLERDWAINE T 599.0 URINARY TRACT INFECTION 09/21/2010 THONG STICK PULLER, DWAINE T 599.0 URINARY TRACT INFECTION 09/21/2010 THONG STICK PULLER, DWAINE T 599.0 URINARY TRACT INFECTION 09/21/2010 THONG STICK PULLER, DWAINE T 599.0 URINARY TRACT INFECTION 09/21/2010 THONG STICK PULLER, DWAINE T 599.0 URINARY TRACT INFECTION 09/21/2010 THONG STICK PULLER, DWAINE T 599.0 URINARY TRACT INFECTION 09/21/2010 THONG STICK PULLER, DWAINE T 599.0 URINARY TRACT INFECTION 09/21/2010 THONG STICK PULLER, DWAINE T 599.0 URINARY TRACT INFECTION 09/21/2010 THONG STICK PULLER, DWAINE T 599.0 URINARY TRACT INFECTION 10/07/2010 [...] AND ABSCESS OF UNSPECIFIED SITES 11/08/2010 THONG STICK PULLER, DWAINE T 682.9 CELLULITIS AND ABSCESS OF [...] (3 YRS AND ABOVE, IM) 01/06/2011 THONG STICK PULLER, DWAINE T V04.81 FLU DX (3 YRS AND ABOVE, IM) 01/06/2011 THONG STICK PULLER, DWAINE T V04.81 FLU DX (3 YRS AND ABOVE, IM) 01/06/2011 THONG STICK PULLER, DWAINE T V04.81 FLU DX (3 YRS [...] MD 780.4 DIZZINESS AND GIDDINESS 03/07/2011 THONG STICK PULLER, DWAINE T 780.4 DIZZINESS AND GIDDINESS 03/07/2011 [...] T 780.4 DIZZINESS AND GIDDINESS 03/07/2011 THONG STICK PULLER DWAINE T 780.4 DIZZINESS AND GIDDINESS 03/07/2011 THONG STICK PULLERDWAINE Arredondo T 780.4 DIZZINESS AND GIDDINESS 03/07/2011 THONG STICK PULLERDWAINE T 780.4 DIZZINESS AND GIDDINESS 03/07/2011 DWAINE BENITO APRN T 780.4 DIZZINESS AND GIDDINESS 03/07/2011 NEIDA TALBOT MD 780.4 DIZZINESS AND GIDDINESS 03/07/2011 780.4 DIZZINESS AND GIDDINESS 03/07/2011 THONG STICK PULLERDWAINE Arredondo T 780.4 DIZZINESS AND GIDDINESS 03/07/2011 [...] BENITO APRN T 564.00 CONSTIPATION 07/23/2012 THONG STICK PULLER, DAWINE T 564.00 CONSTIPATION 07/23/2012 THONG STICK PULLER, DWAINE T 564.00 CONSTIPATION 07/23/2012 THONG STICK PULLER, DWAINE T 564.00 CONSTIPATION 07/23/2012 THONG STICK PULLER, DWAINE T 564.00 CONSTIPATION 07/23/2012 THONG STICK PULLER, DWAINE T 564.00 CONSTIPATION 07/23/2012 YE ANDRADE MD 564.00 CONSTIPATION 07/23/2012 THONG STICK PULLER, DWAINE T 564.00 CONSTIPATION 07/23/2012 THONG STICK PULLER, DWAINE T 564.00 CONSTIPATION 07/23/2012 THONG STICK PULLER, DWAINE T 564.00 CONSTIPATION 07/23/2012 THONG STICK PULLER, DWAINE T 564.00 CONSTIPATION 07/23/2012 THONG STICK PULLER, DWAINE T 564.00 CONSTIPATION 07/23/2012 THONG STICK PULLER, DWAINE T 564.00 CONSTIPATION 07/23/2012 THONG STICK PULLER, DWAINE T 564.00 CONSTIPATION 07/23/2012 THONG STICK PULLER, DWAINE T 564.00 CONSTIPATION 07/23/2012 THONG STICK PULLER, DWAINE T 564.00 CONSTIPATION 07/23/2012 NEIDA TALBOT MD 564.00 CONSTIPATION 07/23/2012 THONG STICK PULLER, DWAINE T 564.00 CONSTIPATION 07/23/2012 THONG STICK PULLER, DWAINE T 564.00 CONSTIPATION 07/23/2012 THONG STICK PULLER, DWAINE T 564.00 CONSTIPATION 07/23/2012 THONG STICK PULLER, DWAINE T 564.00 CONSTIPATION 07/23/2012 THONG STICK PULLER, DWAINE T 564.00 CONSTIPATION 07/23/2012 THONG STICK PULLER, DWAINE T 564.00 CONSTIPATION 07/23/2012 THONG STICK PULLER, DWAINE T 564.00 CONSTIPATION 07/23/2012 NEIDA TALBOT MD 564.00 CONSTIPATION 07/23/2012 564.00 CONSTIPATION 07/23/2012 THONG STICK PULLER, DWAINE T 564.00 CONSTIPATION 07/23/2012 THONG STICK PULLER, DWAINE T 564.00 CONSTIPATION 07/23/2012 THONG STICK PULLER, DWAINE T 564.00 CONSTIPATION 07/23/2012 THONG STICK PULLER, DWAINE T 564.00 CONSTIPATION 07/23/2012 THONG SAAVEDRAN, DWAINE T 564.00 CONSTIPATION 07/23/2012 NEIDA TALBOT MD 564.00 CONSTIPATION 07/23/2012 THONG STICK PULLER, DWAINE T 564.00 CONSTIPATION 07/23/2012 THONG STICK PULLER, DWAINE T 564.00 CONSTIPATION 07/23/2012 PRICE DO, GILBERTO K 564.00 CONSTIPATION 07/23/2012 THONG STICK PULLER, DWAINE T 564.00 CONSTIPATION 07/23/2012 THONG STICK PULLER, DWAINE T 564.00 CONSTIPATION 07/23/2012 THONG STICK PULLER, DWAINE T 564.00 CONSTIPATION 07/23/2012 THONG STICK PULLER, DWAINE T 564.00 CONSTIPATION 07/23/2012 PRICE DO, GILBERTO K 564.00 CONSTIPATION 07/23/2012 THONG STICK PULLER, DWAINE T 564.00 CONSTIPATION 07/23/2012 THONG STICK PULLER, DWAINE T 564.00 CONSTIPATION 07/23/2012 THONG STICK PULLER, DWAINE T 564.00 CONSTIPATION 07/23/2012 THONG STICK PULLER, DWAINE T 564.00 CONSTIPATION 07/23/2012 THONG STICK PULLER, DWAINE T 564.00 CONSTIPATION 07/23/2012 THONG STICK PULLER, DWAINE T 564.00 CONSTIPATION 07/23/2012 THONG STICK PULLER, DWAINE T 564.00 CONSTIPATION 07/23/2012 THONG STICK PULLER, DWANIE T 564.00 CONSTIPATION 07/23/2012 THONG STICK PULLER, DWAINE T 564.00 CONSTIPATION 07/23/2012 THONG STICK PULLER, DWAINE T 564.00 CONSTIPATION 08/11/2012 E879.6 URINARY [...] MISADVENTURE AT TIME OF PROCED 08/11/2012 DWAINE BENIOT APRN E879.6 URINARY CATHETERIZATION THE CAUSE OF [...] MISADVENTURE AT TIME OF PROCED 08/11/2012 THONG STICK PULLER, DWAINE T E879.6 URINARY CATHETERIZATION THE CAUSE [...] NEIDA TALBOT MD 724.3 SCIATICA 09/13/2012 THONG STICK PULLER, DWAINE T 724.3 SCIATICA 09/13/2012 THONG STICK PULLER, DWAINE T 724.3 SCIATICA 09/13/2012 THONG STICK PULLER, DWAINE T 724.3 SCIATICA 09/13/2012 THONG STICK PULLER, DWAINE T 724.3 SCIATICA 09/13/2012 THONG STICK PULLER, DWAINE T 724.3 SCIATICA 09/13/2012 THONG STICK PULLER, DWAINE T 724.3 SCIATICA 09/13/2012 THONG STICK PULLER, DWAINE T 724.3 SCIATICA 09/13/2012 THONG STICK PULLER, DWAINE T 724.3 SCIATICA 09/13/2012 RAYMOND MORRISON, YE Robles 724.3 SCIATICA 09/13/2012 THONG STICK PULLER, DWAINE T 724.3 SCIATICA 09/13/2012 THONG STICK PULLER, DWAINE T 724.3 SCIATICA 09/13/2012 THONG STICK PULLER, DWAINE T 724.3 SCIATICA 09/13/2012 THONG SAAVEDRAN, [...] SAAVEDRAN, DWAINE T 724.3 SCIATICA 09/13/2012 THONG STICK PULLER, DWAINE T 724.3 SCIATICA 09/13/2012 THONG STICK PULLER, DWAINE T 724.3 SCIATICA 09/13/2012 THONG SAAVEDRAN, [...] HODGES, DWAINE T 724.3 SCIATICA 09/13/2012 THONG SAAVERDAN, DWAINE T 724.3 SCIATICA 09/13/2012 THONG HODGES, [...] MORRISON, NEIDA V76.12 MAMMOGRAM SCREENING 11/30/2012 THONG STICK PULLER, DWAINE T V76.12 MAMMOGRAM SCREENING 11/30/2012 THONG STICK PULLER, DWAINE T V76.12 MAMMOGRAM SCREENING 11/30/2012 THONG STICK PULLER, DWAINE T V76.12 MAMMOGRAM SCREENING 11/30/2012 THONG STICK PULLER, DWAINE T V76.12 MAMMOGRAM SCREENING 11/30/2012 THONG STICK PULLER, DWAINE T V76.12 MAMMOGRAM SCREENING 11/30/2012 THONG STICK PULLER, DWAINE T V76.12 MAMMOGRAM SCREENING 11/30/2012 THONG STICK PULLER, DWAINE T V76.12 MAMMOGRAM SCREENING 11/30/2012 THONG STICK PULLER, DWAINE T V76.12 MAMMOGRAM SCREENING 11/30/2012 RAYMOND MORRISON, YE Robles V76.12 MAMMOGRAM SCREENING 11/30/2012 THONG STICK PULLER, DWAINE T V76.12 MAMMOGRAM SCREENING 11/30/2012 THONG STICK PULLER, DWAINE T V76.12 MAMMOGRAM SCREENING 11/30/2012 THONG STICK PULLER, DWAINE T V76.12 MAMMOGRAM SCREENING 11/30/2012 THONG STICK PULLER, DWAINE T V76.12 MAMMOGRAM SCREENING 11/30/2012 THONG STICK PULLER, DWAINE T V76.12 MAMMOGRAM SCREENING 11/30/2012 THONG STICK PULLER, DWAINE T V76.12 MAMMOGRAM SCREENING 11/30/2012 THONG STICK PULLER, DWAINE T V76.12 MAMMOGRAM SCREENING 11/30/2012 THONG STICK PULLER, DWAINE T V76.12 MAMMOGRAM SCREENING 11/30/2012 THONG STICK PULLER, DWAINE T V76.12 MAMMOGRAM SCREENING 11/30/2012 ANTIONE MORRISON, NEIDA V76.12 MAMMOGRAM SCREENING 11/30/2012 THONG STICK PULLER, DWAINE T V76.12 MAMMOGRAM SCREENING 11/30/2012 THONG STICK PULLER, DWAINE T V76.12 MAMMOGRAM SCREENING 11/30/2012 THONG STICK PULLER, DWAINE T V76.12 MAMMOGRAM SCREENING 11/30/2012 THONG STICK PULLER, DWAINE T V76.12 MAMMOGRAM SCREENING 11/30/2012 THONG STICK PULLER, DWAINE T V76.12 MAMMOGRAM SCREENING 11/30/2012 THONG STICK PULLER, DWAINE T V76.12 MAMMOGRAM SCREENING 11/30/2012 THONG STICK PULLER, DWAINE T V76.12 MAMMOGRAM SCREENING 11/30/2012 ANTIONE MORRISON, NEIDA V76.12 MAMMOGRAM SCREENING 11/30/2012 V76.12 MAMMOGRAM SCREENING 11/30/2012 THONG STICK PULLER, DWAINE T V76.12 MAMMOGRAM SCREENING 11/30/2012 THONG STICK PULLER, DWAINE T V76.12 MAMMOGRAM SCREENING 11/30/2012 THONG STICK PULLER, DWAINE T V76.12 MAMMOGRAM SCREENING 11/30/2012 THONG STICK PULLER, DWAINE T V76.12 MAMMOGRAM SCREENING 11/30/2012 THONG STICK PULLER, DWAINE T V76.12 MAMMOGRAM SCREENING 11/30/2012 ANTIONE MORRISON, NEIDA V76.12 MAMMOGRAM SCREENING 11/30/2012 THONG STICK PULLER, DWAINE T V76.12 MAMMOGRAM SCREENING 11/30/2012 THONG STICK PULLER, DWAINE T V76.12 MAMMOGRAM SCREENING 11/30/2012 PRICE DO, GILBERTO K V76.12 MAMMOGRAM SCREENING 11/30/2012 THONG STICK PULLER, DWAINE T V76.12 MAMMOGRAM SCREENING 11/30/2012 THONG STICK PULLER, DWAINE T V76.12 MAMMOGRAM SCREENING 11/30/2012 THONG STICK PULLER, DWAINE T V76.12 MAMMOGRAM SCREENING 11/30/2012 THONG STICK PULLER, DWAINE T V76.12 MAMMOGRAM SCREENING 11/30/2012 PRICE DO, GILBERTO K V76.12 MAMMOGRAM SCREENING 11/30/2012 THONG STICK PULLER, DWAINE T V76.12 MAMMOGRAM SCREENING 11/30/2012 THONG STICK PULLER, DWAINE T V76.12 MAMMOGRAM SCREENING 11/30/2012 THONG STICK PULLER, DWAINE T V76.12 MAMMOGRAM SCREENING 11/30/2012 THONG STICK PULLER, DWAINE T V76.12 MAMMOGRAM SCREENING 11/30/2012 THONG STICK PULLER, DWAINE T V76.12 MAMMOGRAM SCREENING 11/30/2012 THONG STICK PULLER, DWAINE T V76.12 MAMMOGRAM SCREENING 11/30/2012 THONG STICK PULLER, DWAINE T V76.12 MAMMOGRAM SCREENING 11/30/2012 THONG STICK PULLER, DWAINE T V76.12 MAMMOGRAM SCREENING 11/30/2012 THONG STICK PULLER, DWAINE T V76.12 MAMMOGRAM SCREENING 11/30/2012 THONG STICK PULLER, DWAINE T V76.12 MAMMOGRAM SCREENING 01/27/2013 NEIDA TALBOT MD 465.9 UPPER RESPIRATORY INFECTION 01/27/2013 THONG HODGES, DWAINE Rushing 465.9 UPPER RESPIRATORY INFECTION 01/27/2013 HUERTER MD, NEIDA 465.9 UPPER RESPIRATORY INFECTION 01/27/2013 THONG STICK PULLER, DWAINE T 465.9 UPPER RESPIRATORY INFECTION 01/27/2013 NEIDA TALBOT MD 465.9 UPPER RESPIRATORY INFECTION 01/27/2013 THONG STICK PULLER, DWAINE T 465.9 UPPER RESPIRATORY INFECTION 01/27/2013 THONG STICK PULLER, DWAINE T 465.9 UPPER RESPIRATORY INFECTION 01/27/2013 THONG STICK PULLER, DWAINE T 465.9 UPPER RESPIRATORY INFECTION 01/27/2013 THONG STICK PULLER, DWAINE T 465.9 UPPER RESPIRATORY INFECTION 01/27/2013 THONG STICK PULLER, DWAINE T 465.9 UPPER RESPIRATORY INFECTION 01/27/2013 THONG STICK PULLER, DWAINE T 465.9 UPPER RESPIRATORY INFECTION 01/27/2013 THONG STICK PULLER, DWAINE T 465.9 UPPER RESPIRATORY INFECTION 01/27/2013 THONG STICK PULLER, DWAINE T 465.9 UPPER RESPIRATORY INFECTION 01/27/2013 RAYMOND MORRISON, YE Robles 465.9 UPPER RESPIRATORY INFECTION 01/27/2013 THONG STICK PULLER, DWAINE T 465.9 UPPER RESPIRATORY INFECTION 01/27/2013 THONG STICK PULLER, DWAINE T 465.9 UPPER RESPIRATORY INFECTION 01/27/2013 THONG STICK PULLER, DWAINE T 465.9 UPPER RESPIRATORY INFECTION 01/27/2013 THONG STICK PULLER, DWAINE T 465.9 UPPER RESPIRATORY INFECTION 01/27/2013 THONG STICK PULLER, DWAINE T 465.9 UPPER RESPIRATORY INFECTION 01/27/2013 THONG STICK PULLER, DWAINE T 465.9 UPPER RESPIRATORY INFECTION 01/27/2013 THONG STICK PULLER, DWAINE T 465.9 UPPER RESPIRATORY INFECTION 01/27/2013 THONG STICK PULLER, DWAINE T 465.9 UPPER RESPIRATORY INFECTION 01/27/2013 THONG STICK PULLER, DWAINE T 465.9 UPPER RESPIRATORY INFECTION 01/27/2013 NEIDA TALBOT MD 465.9 UPPER RESPIRATORY INFECTION 01/27/2013 THONG STICK PULLER, DWAINE T 465.9 UPPER RESPIRATORY INFECTION 01/27/2013 THONG STICK PULLER, DWAINE T 465.9 UPPER RESPIRATORY INFECTION 01/27/2013 THONG STICK PULLER, DWAINE T 465.9 UPPER RESPIRATORY INFECTION 01/27/2013 THONG STICK PULLER, DWAINE T 465.9 UPPER RESPIRATORY INFECTION 01/27/2013 THONG STICK PULLER, DWAINE T 465.9 UPPER RESPIRATORY INFECTION 01/27/2013 THONG STICK PULLER, DWAINE T 465.9 UPPER RESPIRATORY INFECTION 01/27/2013 THONG STICK PULLER, DWAINE T 465.9 UPPER RESPIRATORY INFECTION 01/27/2013 NEIDA TALBOT MD 465.9 UPPER RESPIRATORY INFECTION 01/27/2013 465.9 UPPER RESPIRATORY INFECTION 01/27/2013 THONG STICK PULLER, DWAINE T 465.9 UPPER RESPIRATORY INFECTION 01/27/2013 THONG STICK PULLER, DWAINE T 465.9 UPPER RESPIRATORY INFECTION 01/27/2013 THONG STICK PULLER, DWAINE T 465.9 UPPER RESPIRATORY INFECTION 01/27/2013 THONG STICK PULLER, DWAINE T 465.9 UPPER RESPIRATORY INFECTION 01/27/2013 THONG STICK PULLER, DWAINE T 465.9 UPPER RESPIRATORY INFECTION 01/27/2013 NEIDA TALBOT MD 465.9 UPPER RESPIRATORY INFECTION 01/27/2013 THONG STICK PULLER, DWAINE T 465.9 UPPER RESPIRATORY INFECTION 01/27/2013 THONG STICK PULLER, DWAINE T 465.9 UPPER RESPIRATORY INFECTION 01/27/2013 PRICE DO, GILBERTO K 465.9 UPPER RESPIRATORY INFECTION 01/27/2013 THONG STICK PULLER, DWAINE T 465.9 UPPER RESPIRATORY INFECTION 01/27/2013 THONG STICK PULLER, DWAINE T 465.9 UPPER RESPIRATORY INFECTION 01/27/2013 THONG STICK PULLER, DWAINE T 465.9 UPPER RESPIRATORY INFECTION 01/27/2013 THONG STICK PULLER, DWAINE T 465.9 UPPER RESPIRATORY INFECTION 01/27/2013 PRICE DO, GILBERTO K 465.9 UPPER RESPIRATORY INFECTION 01/27/2013 THONG STICK PULLER, DWAINE T 465.9 UPPER RESPIRATORY INFECTION 01/27/2013 THONG STICK PULLER, DWAINE T 465.9 UPPER RESPIRATORY INFECTION 01/27/2013 THONG STICK PULLER, DWAINE T 465.9 UPPER RESPIRATORY INFECTION 01/27/2013 THONG STICK PULLER, DWAINE T 465.9 UPPER RESPIRATORY INFECTION 01/27/2013 THONG STICK PULLER, DWAINE T 465.9 UPPER RESPIRATORY INFECTION 01/27/2013 THONG STICK PULLER, DWAINE T 465.9 UPPER RESPIRATORY INFECTION 01/27/2013 THONG STICK PULLER, DWAINE T 465.9 UPPER RESPIRATORY INFECTION 01/27/2013 THONG STICK PULLER, DWAINE T 465.9 UPPER RESPIRATORY INFECTION 01/27/2013 THONG STICK PULLER, DWAINE T 465.9 UPPER RESPIRATORY INFECTION 01/27/2013 THONG STICK PULLER, DWAINE T 465.9 UPPER RESPIRATORY INFECTION 06/14/2013 YE ANDRADE MD 355.9 NEUROPATHY 06/14/2013 YE ANDRADE MD 788.1 pain during urination (dysuria) 06/14/2013 DWAINE BENITO APRN T 355.9 NEUROPATHY 06/14/2013 THONG HODGES DWAINE T 788.1 pain during urination (dysuria) 06/14/2013 THONG STICK PULLER, DWAINE T 355.9 NEUROPATHY 06/14/2013 THONG STICK PULLER, DWAINE T 788.1 DYSURIA 06/14/2013 THONG STICK PULLER, DWAINE T 355.9 NEUROPATHY 06/14/2013 THONG STICK PULLER, DWAINE T 788.1 DYSURIA 06/14/2013 THONG STICK PULLER, DWAINE T 355.9 NEUROPATHY 06/14/2013 THONG STICK PULLER, DWAINE T 788.1 DYSURIA 06/14/2013 THONG STICK PULLER, DWAINE T 355.9 NEUROPATHY 06/14/2013 THONG STICK PULLER, DWAINE T 788.1 DYSURIA 06/14/2013 THONG STICK PULLER, DWAINE T 355.9 NEUROPATHY 06/14/2013 THONG STICK PULLER, DWAINE T 788.1 DYSURIA 06/14/2013 HTONG STICK PULLER, DWAINE T 355.9 NEUROPATHY 06/14/2013 THONG STICK PULLER, DWAINE T 788.1 DYSURIA 06/14/2013 THONG STICK PULLER, DWAINE T 355.9 NEUROPATHY 06/14/2013 THONG STICK PULLER, DWAINE T 788.1 DYSURIA 06/14/2013 THONG STICK PULLER, DWAINE T 355.9 NEUROPATHY 06/14/2013 THONG STICK PULLER, DWAINE T 788.1 DYSURIA 06/14/2013 NEIDA TALBOT MD 355.9 NEUROPATHY 06/14/2013 NEIDA TALBOT MD 788.1 DYSURIA 06/14/2013 THONG STICK PULLER, DWAINE T 355.9 NEUROPATHY 06/14/2013 THONG STICK PULLER, DWAINE T 788.1 DYSURIA 06/14/2013 THONG STICK PULLER, DWAINE T 355.9 NEUROPATHY 06/14/2013 THONG STICK PULLER, DWAINE T 788.1 DYSURIA 06/14/2013 THONG STICK PULLER, DWAINE T 355.9 NEUROPATHY 06/14/2013 THONG STICK PULLER, DWAINE T 788.1 DYSURIA 06/14/2013 THONG STICK PULLER, DWAINE T 355.9 NEUROPATHY 06/14/2013 THONG STICK PULLER, DWAINE T 788.1 DYSURIA 06/14/2013 THONG STICK PULLER, DWAINE T 355.9 NEUROPATHY 06/14/2013 THONG STICK PULLER, DWAINE T 788.1 DYSURIA 06/14/2013 THONG STICK PULLER, DWAINE T 355.9 NEUROPATHY 06/14/2013 THONG STICK PULLER, DWAINE T 788.1 DYSURIA 06/14/2013 THONG STICK PULLER, DWAINE T 355.9 NEUROPATHY 06/14/2013 THONG STICK PULLER, DWAINE T 788.1 DYSURIA 06/14/2013 NEIDA TALBOT MD 355.9 NEUROPATHY 06/14/2013 NEIDA TALBOT MD 788.1 DYSURIA 06/14/2013 355.9 NEUROPATHY 06/14/2013 788.1 DYSURIA 06/14/2013 THONG STICK PULLER, DWAINE T 355.9 NEUROPATHY 06/14/2013 THONG STICK PULLER, DWAINE T 788.1 DYSURIA 06/14/2013 THONG STICK PULLER, DWAINE T 355.9 NEUROPATHY 06/14/2013 THONG STICK PULLER, DWAINE T 788.1 DYSURIA 06/14/2013 THONG STICK PULLER, DWAINE T 355.9 NEUROPATHY 06/14/2013 THONG STICK PULLER, DWAINE T 788.1 DYSURIA 06/14/2013 THONG SAAVEDRAN, DWAINE T 355.9 NEUROPATHY 06/14/2013 THONG STICK PULLER, DWAINE T 788.1 DYSURIA 06/14/2013 DWAINE BENITO APRN T 355.9 NEUROPATHY 06/14/2013 DWAINE BENITO APRN T 788.1 DYSURIA 06/14/2013 NEIDA TALBOT MD 355.9 NEUROPATHY 06/14/2013 NEIDA TALBOT MD 788.1 DYSURIA 06/14/2013 THONG SAAVEDRAN, DWAINE T 355.9 NEUROPATHY 06/14/2013 THONG HODGES, DWAINE T 788.1 DYSURIA 06/14/2013 DWAINE BENITO APRN T 355.9 NEUROPATHY 06/14/2013 THONG STICK PULLERDWAINE Arredondo T 788.1 DYSURIA 06/14/2013 PRICE DO, GILBERTO K 355.9 NEUROPATHY 06/14/2013 PRICE DO, GILBERTO K 788.1 DYSURIA 06/14/2013 THONG SAAVEDRANDWAINE T 355.9 NEUROPATHY 06/14/2013 THONG STICK PULLERDWAINE T 788.1 DYSURIA 06/14/2013 THONG STICK PULLER, DWAINE T 355.9 NEUROPATHY 06/14/2013 THONG STICK PULLER, DWAINE T 788.1 DYSURIA 06/14/2013 THONG STICK PULLERDWAINE T 355.9 NEUROPATHY 06/14/2013 THONG STICK PULLER, DWAINE T 788.1 DYSURIA 06/14/2013 THONG STICK PULLERDWAINE Arredondo T 355.9 NEUROPATHY 06/14/2013 DWAINE BENITO APRN T 788.1 DYSURIA 06/14/2013 PRICE DO, GILBERTO K 355.9 NEUROPATHY 06/14/2013 PRICE DO, GILBERTO K 788.1 DYSURIA 06/14/2013 THONG STICK PULLER, DWAINE T 355.9 NEUROPATHY 06/14/2013 THONG STICK PULLER, DWAINE T 788.1 DYSURIA 06/14/2013 THONG STICK PULLER, DWAINE T 355.9 NEUROPATHY 06/14/2013 THONG STICK PULLER, DWAINE T 788.1 DYSURIA 06/14/2013 THONG STICK PULLER, DWAINE T 355.9 NEUROPATHY 06/14/2013 THONG STICK PULLERDWAINE T 788.1 DYSURIA 06/14/2013 THONG STICK PULLERDWAINE T 355.9 NEUROPATHY 06/14/2013 THONG STICK PULLER, DWAINE T 788.1 DYSURIA 06/14/2013 THONG STICK PULLERDWAINE T 355.9 NEUROPATHY 06/14/2013 THONG STICK PULLERDWAINE T 788.1 DYSURIA 06/14/2013 THONG STICK PULLERDWAINE T 355.9 NEUROPATHY 06/14/2013 THONG STICK PULLERDWAINE T 788.1 DYSURIA 06/14/2013 THONG STICK PULLERDWAINE T 355.9 NEUROPATHY 06/14/2013 THONG STICK PULLERDWAINE T 788.1 DYSURIA 06/14/2013 THONG STICK PULLERDWAINE T 355.9 NEUROPATHY 06/14/2013 THONG STICK PULLERDWAINE T 788.1 DYSURIA 06/14/2013 THONG STICK PULLERDWAINE T 355.9 NEUROPATHY 06/14/2013 THONG STICK PULLERDWAINE T 788.1 DYSURIA 06/14/2013 THONG STICK PULLERDWAINE T 355.9 NEUROPATHY 06/14/2013 THONG STICK PULLERDWAINE T 788.1 DYSURIA 06/27/2013 DWAINE BENITO APRN [...] AND ADJUSTMENT OF URINARY DEVICES 08/03/2013 DWAINE BNEITO APRN V53.6 FITTING AND ADJUSTMENT OF URINARY [...] BING MORRISON, HONG Alba Ot 786.2 11/09/2013 NIEDA TALBOT MD 682.9 CELLULITIS AND ABSCESS OF [...] AND ABSCESS OF UNSPECIFIED SITES 11/09/2013 THONG STICK PULLER, DWAINE T 682.9 CELLULITIS AND ABSCESS OF UNSPECIFIED SITES 11/09/2013 THONG STICK PULLERDWAINE T 682.9 CELLULITIS AND ABSCESS OF UNSPECIFIED [...] SAAVEDRAN, DWAINE T 564.00 CONSTIPATION 01/16/2014 THONG STICK PULLER, DWAINE T 564.00 CONSTIPATION 01/16/2014 THONG STICK PULLER, DWAINE T 564.00 CONSTIPATION 01/16/2014 THONG SAAVEDRAN, DWAINE T 564.00 CONSTIPATION 01/16/2014 PRICE DOERNESTOA K 564.00 CONSTIPATION 01/16/2014 THONG STICK PULLER, DWAINE T 564.00 CONSTIPATION 01/16/2014 THONG STICK PULLER, DWAINE T 564.00 CONSTIPATION 01/16/2014 THONG STICK PULLER, DWAINE T 564.00 CONSTIPATION 01/16/2014 THONG STICK PULLER, DWAINE T 564.00 CONSTIPATION 01/16/2014 THONG STICK PULLER, DWAINE T 564.00 CONSTIPATION 01/16/2014 THONG STICK PULLER, DWAINE T 564.00 CONSTIPATION 01/16/2014 THONG STICK PULLER, DWAINE T 564.00 CONSTIPATION 01/16/2014 THONG STICK PULLER, DWAINE T 564.00 CONSTIPATION 01/16/2014 THONG STICK PULLER, DWAINE T 564.00 CONSTIPATION 01/16/2014 THONG STICK PULLER, DWAINE T 564.00 CONSTIPATION 02/25/2014 DWAINE BENITO APRN T 465.9 UPPER RESPIRATORY INFECTION 02/25/2014 DWAINE BENITO APRN T 465.9 UPPER RESPIRATORY INFECTION 02/25/2014 PRICE DO, GILBERTO K 465.9 UPPER RESPIRATORY INFECTION 02/25/2014 THONG SAAVEDRANDWAINE T 465.9 UPPER RESPIRATORY INFECTION 02/25/2014 DWAINE BENITO APRN T 465.9 UPPER RESPIRATORY INFECTION 02/25/2014 THONG STICK PULLER, DWAINE T 465.9 UPPER RESPIRATORY INFECTION 02/25/2014 THONG STICK PULLER, DWAINE T 465.9 UPPER RESPIRATORY INFECTION 02/25/2014 THONG STICK PULLER, DWAINE T 465.9 UPPER RESPIRATORY INFECTION 02/25/2014 THONG STICK PULLER, DWAINE T 465.9 UPPER RESPIRATORY INFECTION 02/25/2014 THONG STICK PULLER, DWAINE T 465.9 UPPER RESPIRATORY INFECTION 02/25/2014 THONG STICK PULLER, DWAINE T 465.9 UPPER RESPIRATORY INFECTION 02/25/2014 THONG STICK PULLER, DWAINE T 465.9 UPPER RESPIRATORY INFECTION 02/25/2014 THONG STICK PULLER, DWAINE T 465.9 UPPER RESPIRATORY INFECTION 02/27/2014 [...] APOLLO Castillo Ot 719.45 02/27/2014 DWAINE BENITO [employer] MACHINE OPERATOR Ot 707.05 02/27/2014 DWAINE BENITO [employer] MACHINE OPERATOR Ot 707.20 03/02/2014 GILBERTO PRICE DO K [...] NEUROPATHY 07/19/2015 SHIRLEY KIRKPATRICK MD Ot T83.098A [facility] COMPL OF OTH INDWELLING URETHRAL CA [...] 01/30/2016 ALICIA ZHANG MDNT A Ot Z79.84 PRISON (CURRENT) USE OF ORAL HYPOGLYC 01/30/2016 VICENTE MORRISON MAIKEL A Ot Z79.899 OTHER SUPPORT DBA (CURRENT) DRUG THERAPY 01/31/2016 MAIKEL ZHANG MD [...] 01/31/2016 ALICIA ZHANG MDNT A Ot Z79.84 PRISON (CURRENT) USE OF ORAL HYPOGLYC 01/31/2016 VICENTE MORRISON MAIKEL A Ot Z79.899 OTHER SUPPORT DBA (CURRENT) DRUG THERAPY 02/05/2016 MAIKEL ZHANG MD [...] 02/05/2016 ALICIA ZHANG MDNT A Ot Z79.84 PRISON (CURRENT) USE OF ORAL HYPOGLYC 02/05/2016 VICENTE MORRISON MAIKEL A Ot Z79.899 OTHER SUPPORT DBA (CURRENT) DRUG THERAPY 02/07/2016 JOVAN CASON MD [...] CATH 04/26/2016 ALYSIA CASTRO MD Ot Z79.84 SUPPORT DBA (CURRENT) USE OF ORAL HYPOGLYC 04/28/2016 ALYSIA [...] CATH 04/28/2016 ALYSIA CASTRO MD Ot Z79.84 PRISON (CURRENT) USE OF ORAL HYPOGLYC 05/04/2016 JOVAN [...] CATHET 05/20/2016 HONG SMART MD, Ot Z79.84 SUPPORT DBA (CURRENT) USE OF ORAL HYPOGLYC 05/20/2016 HONG SMART MD Ot Z91.19 PATIENT'S NONCOMPLIANCE W [facility] MEDICAL TR 09/21/2016 SHIRLEY KIRKPATRICK MD, Ot E11.9 TYPE 2 DIABETES MELLITUS WITHOUT COMPLIC 09/21/2016 SHIRLEY KIRKPATRICK MD, Ot F17.210 NICOTINE DEPENDENCE, CIGARETTES, UNCOMPL 09/21/2016 SHIRLEY KIRKPATRICK MD, Ot N39.0 URINARY TRACT INFECTION, SITE NOT SPECIF 09/21/2016 SHIRLEY KIRKPATRICK MD, Ot Z79.84 PRISON (CURRENT) USE OF ORAL HYPOGLYC 09/21/2016 SHIRLEY KIRKPATRICK MD, Ot Z87.442 PERSONAL HISTORY OF URINARY CALCULI 09/25/2016 DWAINE BENITO [employer] MACHINE OPERATOR Ot N39.0 URINARY TRACT INFECTION, SITE NOT SPECIF 09/25/2016 DWAINE BENITO [employer] MACHINE OPERATOR Ot N39.0 URINARY TRACT INFECTION, SITE NOT SPECIF 09/25/2016 DWAINE BENITO [employer] MACHINE OPERATOR Ot N39.0 URINARY TRACT INFECTION, SITE NOT SPECIF 09/26/2016 DWAINE BENITO [employer] MACHINE OPERATOR Ot N39.0 URINARY TRACT INFECTION, SITE NOT SPECIF 09/27/2016 SHIRLEY KIRKPATRICK MD, Ot E11.9 TYPE 2 DIABETES MELLITUS WITHOUT COMPLIC 09/27/2016 SHIRLEY KIRKPATRICK MD, Ot F17.210 NICOTINE DEPENDENCE, CIGARETTES, UNCOMPL 09/27/2016 SHIRLEY KIRKPATRICK MD, Ot N39.0 URINARY TRACT INFECTION, SITE NOT SPECIF 09/27/2016 SHIRLEY KIRKPATRICK MD, Ot Z79.84 SUPPORT DBA (CURRENT) USE OF ORAL HYPOGLYC 09/27/2016 SHIRLEY KIRKPATRICK MD Ot Z87.442 PERSONAL HISTORY OF URINARY CALCULI 09/27/2016 DWAINE BENITO [employer] MACHINE OPERATOR Ot N39.0 URINARY TRACT INFECTION, SITE NOT SPECIF 09/27/2016 DWAINE BENITO [employer] MACHINE OPERATOR Ot N39.0 URINARY TRACT INFECTION, SITE NOT SPECIF 09/28/2016 DWAINE BENITO [employer] MACHINE OPERATOR Ot N39.0 URINARY TRACT INFECTION, SITE NOT SPECIF 09/28/2016 DWAINE BENITO [employer] MACHINE OPERATOR Ot N39.0 URINARY TRACT INFECTION, SITE NOT SPECIF 09/28/2016 THONGDWAINE [employer] MACHINE OPERATOR Ot N39.0 URINARY TRACT INFECTION, SITE NOT SPECIF 09/29/2016 THONGDWAINE [employer] MACHINE OPERATOR Ot N39.0 URINARY TRACT INFECTION, SITE NOT SPECIF 09/29/2016 THONGDWAINE [employer] MACHINE OPERATOR Ot N39.0 URINARY TRACT INFECTION, SITE NOT SPECIF 09/30/2016 DWAINE BENITO [employer] MACHINE OPERATOR Ot N39.0 URINARY TRACT INFECTION, SITE NOT [...] SMO 10/18/2016 BEST MCKEE MD Ot Z79.84 SUPPORT DBA (CURRENT) USE OF ORAL HYPOGLYC 10/18/2016 BEST [...] BEST MCKEE MD Ot R00.2 PALPITATIONS 10/20/2016 BETS MCKEE MD, Ot Z79.84 PRISON (CURRENT) USE OF ORAL HYPOGLYC 10/20/2016 BEST MCKEE MD Ot Z87.01 PERSONAL HISTORY OF PNEUMONIA (RECURRENT 10/20/2016 BEST MCKEE MD, Ot Z87.442 PERSONAL HISTORY OF URINARY CALCULI 10/20/2016 BEST MCKEE MD Ot Z96.0 PRESENCE OF UROGENITAL IMPLANTS 10/20/2016 BEST MCKEE MD, Ot Z98.1 ARTHRODESIS STATUS 11/25/2016 DWAINE BENITO Ot N39.0 URINARY TRACT INFECTION, SITE NOT SPECIF 12/23/2016 DWAINE BENITO [employer] MACHINE OPERATOR Ot N39.0 URINARY TRACT INFECTION, SITE NOT [...] PAIN 12/24/2016 ALYSIA CASTRO MD, Ot Z79.84 PRISON (CURRENT) USE OF ORAL HYPOGLYC 12/24/2016 ALYSIA [...] PAIN 12/25/2016 ALYSIA CASTRO MD Ot Z79.84 PRISON (CURRENT) USE OF ORAL HYPOGLYC 12/25/2016 ALYSIA [...] PAIN 12/29/2016 ALYSIA CASTRO MD Ot Z79.84 SUPPORT DBA (CURRENT) USE OF ORAL HYPOGLYC 12/29/2016 ALYSIA CASTRO MD Ot Z80.3 FAMILY HISTORY OF MALIGNANT NEOPLASM OF 12/29/2016 AYLSIA CASTRO MD Ot Z82.49 FAMILY HX OF [...] SPECIF 01/12/2017 DINAH CONTEH DO Ot Z79.84 PRISON (CURRENT) USE OF ORAL HYPOGLYC 01/12/2017 DINAH [...] 01/14/2017 WERO GUILLAUME DINAH Alba Ot Z79.84 PRISON (CURRENT) USE OF ORAL HYPOGLYC 01/14/2017 WERO [...] Procedures Code Description [place] [address] UA W/ CULTURE IF INDICATED 03/01/2012 47194 CULTURE URINE 03/03/2012 39884 UA W/ CULTURE IF INDICATED 03/31/2012 57595 CULTURE URINE 04/02/2012 71916 UA W/ CULTURE IF INDICATED 04/15/2012 00662 CULTURE URINE 04/17/2012 26167 INSERT BLADDER CATHETER 06/04/2012 15721 INSERT TEMP BLADDER CATH 06/17/2012 72414 INSERT BLADDER CATHETER 07/02/2012 05160 INSERT BLADDER CATHETER 07/16/2012 70270 UA LONG DIP 07/26/2012 04289 CULTURE URINE 07/28/2012 58020 INSERT TEMP BLADDER CATH 07/30/2012 71772 CMP 08/02/2012 75056 LIPID PANEL 08/02/2012 86475 VITAMIN D 25-HYDROXY (D2,D3 , TOTAL) 08/02/2012 53121 A1C (IN-HOUSE) 08/02/2012 65074 TSH 08/02/2012 93174 CBC 08/02/2012 62435 MAMMOGRAM, SCREENING 11/30/2012 34573 UA LONG DIP 11/30/2012 36540 CULTURE URINE 12/01/2012 68822 CULTURE URINE 12/02/2012 72278 CULTURE URINE 02/18/2013 76162 UA W/ CULTURE IF INDICATED 04/20/2013 54421 CULTURE URINE 04/22/2013 78838 CULTURE WOUND (AEROBIC) 05/23/2013 32460 A1C (IN-HOUSE) 06/14/2013 02493 UA W/ CULTURE IF INDICATED 06/20/2013 94354 CULTURE URINE 06/20/2013 17879 INSERT TEMP BLADDER CATH 06/22/2013 05301 UA LONG DIP 07/01/2013 81509 CULTURE URINE 07/02/2013 34346 INSERT TEMP BLADDER CATH 07/06/2013 49736 INSERT TEMP BLADDER CATH 07/20/2013 69021 CULTURE WOUND (AEROBIC) 07/25/2013 62672 CULTURE URINE 08/04/2013 64776 CULTURE WOUND (AEROBIC) 11/09/[address] PELVIS W/O CONTRAST 11/10/2013 92071 CULTURE WOUND (AEROBIC) 12/09/2013 42193 UA W/MICROSCOPY 12/16/2013 71056 UA W/MICROSCOPY 12/16/2013 35174 CULTURE URINE 12/20/2013 42317 CULTURE URINE 12/22/2013 71006 UA W/ CULTURE IF INDICATED 01/04/2014 39782 CULTURE URINE 01/04/2014 48803 CULTURE URINE 05/03/2014 88802 CULTURE URINE 05/05/2014 Results Test Result Range [...] culture - 01/30/16 16:15 Bacterial urine culture [id number] NRG COLONY COUNT >100,000/ML NRG FTX;REPORTABLE SENSITIVITY [...] culture - 02/08/16 15:55 Bacterial urine culture [id number] NRG COLONY COUNT 10,000/ML - 100,000/ML NRG [...] culture - 05/20/16 02:35 Bacterial urine culture [id number] NRG COLONY COUNT >100,000/ML NRG FTX;REPORTABLE SENSITIVITY [...] culture - 09/21/16 20:10 Bacterial urine culture [id number] NRG COLONY COUNT 10,000/ML - 100,000/ML NRG [...] culture - 10/17/16 23:20 Bacterial urine culture [id number] NRG COLONY COUNT >100,000/ML NRG FTX;REPORTABLE SENSITIVITY [...] culture - 12/23/16 22:16 Bacterial urine culture [id number] NRG COLONY COUNT >100,000/ML NRG FTX;REPORTABLE SENSITIVITY [...] culture - 01/12/17 18:05 Bacterial urine culture [id number] NRG COLONY COUNT >100,000/ML NRG FTX;REPORTABLE SENSITIVITY [...] culture - 04/17/17 20:16 Bacterial urine culture [id number] NRG COLONY COUNT 10,000/ML - 100,000/ML NRG [...] susceptibility test by minimum inhibitory concentration - [facility] Whole blood basic metabolic panel - 04/20/17 [...] NR Blood erythrocyte morphology finding identification NORMAL [facility] Automated blood complete blood count (hemogram) panel [...] ANTIGEN, NEG FOR A ANTIGEN, BY IA [facility] Complete blood count (CBC) with automated white [...] Status Pt. Type Provider Facility Loc./Unit Complaint [id number] 07/26/2014 16:57:00 07/26/2014 23:59:59 [facility] Outpatient DWAINE BENITO APRN [id number] 07/19/2014 17:04:00 07/19/2014 23:59:59 [facility] Outpatient DWAINE BENITO APRN [id number] 07/05/2014 16:59:00 07/05/2014 23:59:59 [facility] Outpatient DWAINE BENITO APRN [id number] 06/21/2014 16:55:00 06/21/2014 23:59:59 C[facility] Outpatient DWAINE BENITO APRN [id number] 05/24/2014 16:53:00 05/24/2014 23:59:59 [facility] Outpatient DWAINE BENITO APRN [id number] 05/03/2014 18:27:00 05/03/2014 23:59:59 CLS Outpatient DWAINE BENITO APRN [id number] 04/26/2014 17:01:00 04/26/2014 23:59:59 CLS Outpatient DWAINE BENITO APRN [id number] 04/12/2014 15:47:00 04/12/2014 23:59:59 CLS Outpatient DWAINE BENITO APRN [id number] 03/29/2014 17:08:00 03/29/2014 23:59:59 CLS Outpatient DWAINE BENITO APRN [id number] 03/24/2014 15:18:00 03/24/2014 23:59:59 CLS Outpatient DWAINE BENITO APRN [id number] 03/15/2014 16:56:00 03/15/2014 23:59:59 CLS Outpatient GILBERTO PRICE DO [id number] 03/03/2014 15:57:00 03/03/2014 23:59:59 CLS Outpatient DWAINE BENITO APRN [id number] 02/25/2014 14:23:00 02/25/2014 23:59:59 CLS Outpatient DWAINE BENITO APRN [id number] 02/15/2014 17:12:00 02/15/2014 23:59:59 CLS Outpatient DWAINE BENITO APRN [id number] 02/01/2014 16:57:00 02/01/2014 23:59:59 CLS Outpatient DWAINE BENITO APRN [id number] 01/18/2014 16:59:00 01/18/2014 23:59:59 CLS Outpatient DEE GUILLAUMEGILBERTO [id number] 01/16/2014 14:37:00 01/16/2014 23:59:59 CLS Outpatient DWAINE BENITO APRN [id number] 01/04/2014 16:56:00 01/04/2014 23:59:59 CLS Outpatient DWAINE BENITO APRN [id number] 01/04/2014 16:56:00 01/04/2014 23:59:59 CLS Outpatient NEIDA TALBOT MD [id number] 12/22/2013 14:42:00 12/22/2013 23:59:59 CLS Outpatient DWAINE BENITO APRN [id number] 12/21/2013 16:52:00 12/21/2013 23:59:59 CLS Outpatient DWAINE BENITO APRN [id number] 12/16/2013 15:18:00 12/16/2013 23:59:59 CLS Outpatient DWAINE BENITO APRN [id number] 12/07/2013 16:35:00 12/07/2013 23:59:59 CLS Outpatient DWAINE BENITO APRN [id number] 12/02/2013 15:16:00 12/02/2013 23:59:59 CLS Outpatient DWAINE BENITO APRN [id number] 11/09/2013 16:52:00 11/09/2013 23:59:59 CLS Outpatient NEIDA TALBOT MD [id number] 11/04/2013 14:43:00 11/04/2013 23:59:59 CLS Outpatient DWAINE BENITO APRN [id number] 10/26/2013 17:00:00 10/26/2013 23:59:59 CLS Outpatient DWAINE BENITO APRN [id number] 10/12/2013 17:02:00 10/12/2013 23:59:59 CLS Outpatient DWAINE BENITO APRN [id number] 09/28/2013 16:56:00 09/28/2013 23:59:59 CLS Outpatient DWAINE BENITO APRN [id number] 09/14/2013 16:34:00 09/14/2013 23:59:59 CLS Outpatient DWAINE BENITO APRN [id number] 08/31/2013 16:23:00 08/31/2013 23:59:59 CLS Outpatient DWAINE BENITO APRN [id number] 08/16/2013 11:31:00 08/16/2013 23:59:59 CLS Outpatient DWAINE BENITO APRN [id number] 08/03/2013 16:56:00 08/03/2013 23:59:59 CLS Outpatient NEIDA TALBOT MD [id number] 07/25/2013 15:43:00 07/25/2013 23:59:59 CLS Outpatient DWAINE BENITO APRN [id number] 07/20/2013 16:34:00 07/20/2013 23:59:59 CLS Outpatient DWAINE BENITO APRN [id number] 07/12/2013 16:40:00 07/12/2013 23:59:59 CLS Outpatient DWAINE BENITO APRN [id number] 07/06/2013 16:45:00 07/06/2013 23:59:59 CLS Outpatient DWAINE BENITO APRN [id number] 06/28/2013 11:26:00 06/28/2013 23:59:59 CLS Outpatient DWAINE BENITO APRN [id number] 06/27/2013 14:41:00 06/27/2013 23:59:59 CLS Outpatient DWAINE BENITO APRN [id number] 06/22/2013 16:40:00 06/22/2013 23:59:59 CLS Outpatient DWAINE BENITO APRN [id number] 06/22/2013 16:40:00 06/22/2013 23:59:59 CLS Outpatient DWAINE BENITO APRN [id number] 06/20/2013 09:07:00 06/20/2013 23:59:59 CLS Outpatient DWAINE BENITO APRN [id number] 06/14/2013 15:48:00 06/14/2013 23:59:59 CLS Outpatient YE ANDRADE MD [id number] 06/08/2013 16:29:00 06/08/2013 23:59:59 CLS Outpatient DWAINE BENITO APRN [id number] 05/25/2013 16:54:00 05/25/2013 23:59:59 CLS Outpatient DWAINE BENITO APRN [id number] 05/23/2013 14:07:00 05/23/2013 23:59:59 CLS Outpatient DWAINE BENITO APRN [id number] 05/11/2013 17:01:00 05/11/2013 23:59:59 CLS Outpatient DWAINE BENITO APRN [id number] 04/27/2013 17:06:00 04/27/2013 23:59:59 CLS Outpatient DWAINE BENITO APRN [id number] 04/20/2013 08:39:00 04/20/2013 23:59:59 CLS Outpatient DWAINE BENITO APRN [id number] 04/12/2013 11:34:00 04/12/2013 23:59:59 CLS Outpatient DWAINE BENITO APRN [id number] 03/30/2013 16:43:00 03/30/2013 23:59:59 CLS Outpatient DWAINE BENITO APRN [id number] 03/16/2013 16:31:00 03/16/2013 23:59:59 CLS Outpatient NEIDA TALBOT MD [id number] 03/11/2013 09:19:00 03/11/2013 23:59:59 CLS Outpatient DWAINE BENITO APRN [id number] 03/02/2013 16:47:00 03/02/2013 23:59:59 CLS Outpatient NEIDA TALBOT MD [id number] 02/16/2013 16:40:00 02/16/2013 23:59:59 CLS Outpatient DWAINE BENITO APRN [id number] 02/02/2013 17:02:00 02/02/2013 23:59:59 CLS Outpatient NEIDA TALBOT MD [id number] 01/19/2013 16:46:00 01/19/2013 23:59:59 CLS Outpatient DWAINE BENITO APRN [id number] 01/05/2013 16:36:00 01/05/2013 23:59:59 CLS Outpatient DWAINE BENITO APRN [id number] 07/14/2012 16:52:00 07/14/2012 23:59:59 CLS Outpatient DWAINE BENITO APRN [id number] 06/30/2012 16:49:00 06/30/2012 23:59:59 CLS Outpatient [id number] 06/16/2012 17:03:00 06/16/2012 23:59:59 CLS Outpatient [id number] 06/02/2012 16:24:00 06/02/2012 23:59:59 CLS Outpatient DWAINE BENITO APRN [id number] 05/19/2012 14:49:00 05/19/2012 23:59:59 CLS Outpatient [id number] 05/05/2012 16:58:00 05/05/2012 23:59:59 CLS Outpatient [id number] 04/21/2012 17:06:00 04/21/2012 23:59:59 CLS Outpatient DWAINE BENITO APRN [id number] 04/15/2012 08:42:00 04/15/2012 23:59:59 CLS Outpatient GILBERTO PRICE DO [id number] 04/07/2012 17:05:00 04/07/2012 23:59:59 CLS Outpatient [id number] 03/31/2012 16:28:00 03/31/2012 23:59:59 CLS Outpatient NEIDA TALBOT MD [id number] 03/24/2012 17:13:00 03/24/2012 23:59:59 CLS Outpatient DWAINE BENITO APRN [id number] 02/11/2012 16:58:00 02/11/2012 23:59:59 CLS Outpatient DWAINE BENITO APRN Сергей [id number] 11/23/2013 16:48:00 Document Registration [id number] 12/15/2012 16:50:00 Document Registration [id number] 12/01/2012 16:44:00 Document Registration [id number] 10/06/2012 16:58:00 Document Registration [id number] 09/30/2012 16:25:00 Document Registration [id number] 09/22/2012 16:17:00 Document Registration [id number] 09/13/2012 17:44:00 Document Registration [id number] 09/08/2012 16:49:00 Document Registration [id number] 08/11/2012 14:50:00 Document Registration [id number] 07/28/2012 14:23:00 Document Registration [id number] 07/26/2012 08:56:00 Document Registration [id number] 07/23/2012 15:29:00 Document Registration [id number] 04/16/2017 13:39:00 04/16/2017 23:59:59 CLS Outpatient DWAINE BENITO Via [facility] RAD K56.99 INTESTINAL OBSTRUCTION [id number] 01/12/2017 16:14:00 01/12/2017 18:53:00 DIS Emergency DINAH CONTEH DO Via [facility] ER UTI/RASH/DIARRHEA [id number] 12/24/2016 08:06:00 12/24/2016 23:59:59 CLS Preadmit SANDOVAL BUSTAMANTE MD Via [facility] RAD HEMATURIA [id number] 12/24/2016 00:22:00 12/24/2016 23:59:59 CLS Preadmit DWAINE BENITO Via [facility] SDC RECURRENT RESISTANT UTI [id number] 12/23/2016 21:42:00 12/24/2016 02:32:00 DIS Emergency ALYSIA CASTRO MD Via [facility] ER RT SIDED ABDOMINAL PAIN [id number] 09/30/2016 15:53:00 12/23/2016 00:01:00 DIS Outpatient DWAINE BENITO Via [facility] SDC RECURRENT RESISTANT UTI [id number] 10/17/2016 21:54:00 10/18/2016 01:50:00 DIS Emergency RAFI MORRISON, BEST Castillo Via [facility] ER CHEST PAINS [id number] 09/21/2016 18:50:00 09/21/2016 21:35:00 DIS Emergency SHIRLEY KIRKPATRICK MD Via [facility] ER UTI SYMPTOMS [id number] 05/16/2016 19:10:00 05/20/2016 13:17:00 DIS Inpatient BING MORRISON, HONG Alba Via [facility] 4TH CONSTIPATION [id number] 05/16/2016 18:21:00 05/16/2016 18:21:00 CAN Preadmit SHIRLEY KIRKPATRICK MD Via [facility] ER CONSTIPATION [id number] 05/14/2016 15:44:00 05/14/2016 18:51:00 DIS Emergency SHIRLEY KIRKPATRICK MD Via [facility] ER CONSTIPATION [id number] 05/05/2016 00:10:00 05/05/2016 23:59:59 CLS Preadmit JOVAN CASON MD Via [facility] UTI [id number] 02/08/2016 15:15:00 05/04/2016 00:01:00 DIS Outpatient JOVAN CASON MD Via [facility] UTI [id number] 04/26/2016 19:13:00 04/26/2016 22:17:00 DIS Emergency ALYSIA CASTRO MD Via [facility] ER CATHETER ISSUES, NOT FLOWING [id number] 01/30/2016 15:32:00 01/30/2016 17:32:00 DIS Emergency MAIKEL ZHANG MD Via [facility] ER UTI [id number] 07/31/2015 17:03:00 07/31/2015 18:35:00 DIS Emergency ADALID HANLEY DO Via [facility] ER [id number] 07/19/2015 01:38:00 07/19/2015 03:06:00 DIS Emergency SHIRLEY KIRKPATRICK MD Via [facility] ER [id number] 05/29/2015 17:47:00 05/29/2015 19:17:00 DIS Emergency WERO DODINAH Via [facility] ER [id number] 08/22/2014 13:25:00 08/22/2014 15:11:00 DIS Emergency MATTHEW MORRISON, ALYSIA Rushing Via [facility] ER [id number] 03/01/2014 20:13:00 03/02/2014 19:45:00 DIS Inpatient GILBERTO PRICE DO Via [facility] CSD [id number] 02/27/2014 11:35:00 02/27/2014 16:27:00 DIS Emergency WERO DODINAH Via [facility] ER [id number] 11/22/2013 16:34:00 11/22/2013 23:59:59 CLS Outpatient DWAINE BENITO Via [facility] RAD [id number] 10/20/2013 16:05:00 10/20/2013 23:59:59 CLS Outpatient RYAN MORRISON, APOLLO Castillo [facility] RAD [id number] 08/28/2013 14:46:00 08/28/2013 15:40:00 DIS Emergency BING MORRISON, HONG Alba Via [facility] ER [id number] 12/10/2012 14:49:00 12/10/2012 23:59:59 CLS Outpatient RAYMOND MORRISON, YE Robles Via [facility] RAD [id number] 04/23/2017 10:41:00 Document Registration [id number] 04/22/2017 22:37:00 Document Registration [id number] 04/17/2017 20:02:00 ACT Inpatient JOVAN CASON MD Via [address] CONSTIPATION [id number] 08/22/2014 14:35:00 Document Registration [id number] 03/07/2012 00:00:00 Document Registration [id number] 02/04/2012 00:00:00 Document Registration [id number] 12/29/2011 14:30:00 Document Registration [id number] 12/13/2011 11:08:00 Document Registration [id number] 12/05/2011 14:44:00 Document Registration [id number] 09/13/2011 13:30:00 Document Registration [id number] 09/03/2011 20:35:00 Document Registration [id number] 06/18/2011 20:18:00 Document Registration [id number] 04/01/2011 13:51:00 Document Registration [id number] 12/24/2010 20:32:00 Document Registration [id number] 12/10/2010 20:25:00 Document Registration [id number] 11/25/2010 21:35:00 Document Registration [id number] 11/12/2010 21:05:00 Document Registration [id number] 10/23/2010 19:59:00 Document Registration [id number] 10/07/2010 00:22:00 Document Registration [id number] 09/30/2010 20:46:00 Document Registration [id number] 09/27/2010 17:03:00 Document Registration [id number] 09/16/2010 20:43:00 Document Registration [id number] 08/09/2010 13:21:00 Document Registration [id number] 06/03/2010 19:21:00 Document Registration [id number] 05/17/2010 15:29:00 Document Registration [id number] 05/06/2010 19:00:00 Document Registration [id number] 02/04/2010 17:15:00 Document Registration [id number] 01/08/2010 15:39:00 Document Registration [id number] 12/17/2009 01:35:00 Document Registration [id number] 11/29/2009 13:35:00 Document Registration [id number] 11/09/2009 14:00:00 Document Registration [id number] 11/08/2009 09:17:00 Document Registration [id number] 14:48:00 Document Registration [id number] 08/10/2009 15:30:00 Document Registration [id number] 06/26/2009 14:24:00 Document Registration [id number] 06/07/2009 15:19:00 Document Registration [id number] 05/07/2009 18:00:00 Document Registration [id number] 03/06/2009 14:46:00 Document Registration [id number] 02/08/2009 17:00:00 Document Registration [id number] 01/19/2009 16:38:00 Document Registration [id number] 01/16/2009 13:11:00 Document Registration [id number] 01/13/2009 14:36:00 Document Registration [id number] 11/07/2008 15:18:00 Document Registration [id number] 10/31/2008 13:51:00 Document Registration [id number] 10/16/2008 11:32:00 Document Registration
[2017-04-23] MEDS: OSELTAMIVIR 75 MG (TAMIFLU) BOX OF 10 PO SCH (20:42)
[2017-04-23] MEDS: LACTOBACILLUS Acidoph/Bulgar (LACTINEX/FLORANEX) TAB PO SCH (20:42)
[2017-04-23] MEDS ORDERED: OSELTAMIVIR 75 MG (TAMIFLU) BOX OF 10 PO SCH (21:00)
--- OUTSIDE RECORDS SUMMARY | 2017-04-23 21:11 | XMS REPORT | Clinical Summary ---
Author Author [facility] Organization [facility] Address Unknown Phone Unavailable Care Team Providers Care Feed Crusher Operator Name Role Phone PCP Unavailable Source Comments Some departments are not documenting in the electronic medical record. If you do not see the information that you expected, contact Release of Information in the Health Information Management department at [phone] for further assistance in locating additional records.[facility] Allergies Active Allergy Reactions Severity Noted [...] Taken Blood Pressure 114/70 03/31/2009 6:00 AM [employer] Pulse 80 03/31/2009 6:00 AM [employer] Temperature 36.6 C (97.9 F) 03/31/2009 6:00 AM [employer] Respiratory Rate - - Oxygen Saturation 95% 03/31/2009 6:00 AM [employer] Inhaled Oxygen - - Concentration Weight 68.1 kg (150 lb 2.1 oz) 03/23/2009 3:00 PM [employer] Height 154.9 cm (5' 1") 03/23/2009 3:00 PM [employer] Body Mass Index 28.37 03/23/2009 3:00 PM [employer] Plan of Treatment Health Maintenance Due Date Last Done Comments HEPATITIS C SCREENING 1958 PHYSICAL (COMPREHENSIVE) 1965 EXAM PERTUSSIS VACCINE 1969 TETANUS VACCINE 11/03/1975 CERVICAL CANCER SCREENING 1988 BREAST CANCER SCREENING 1998 COLORECTAL CANCER 2008 SCREENING INFLUENZA VACCINE 11/11/2016 Results Not on filefrom Last 3 Months
--- OUTSIDE RECORDS SUMMARY | 2017-04-23 21:27 | XMS REPORT | Continuity of Care Document ---
Author Author [facility] Address Unknown Phone Unavailable Allergies Active Description Code Type Severity Reaction Onset Reported/Identified Relationship to Patient Clinical Status Yes CONTRAST DYE CONTRAST DYE Mild N/A 07/29/2008 Yes EES EES Mild N/A 07/29/2008 Yes Sulfa (Sulfonamide Antibiotics) [id number] Drug Allergy Mild N/A 2008 Yes Iodinated Contrast Media - IV Dye [id number] Drug Allergy Unknown N/A 07/30 Yes Iodinated Contrast Media - Oral and [id number] Drug Allergy Unknown N/A Yes Iodinated Contrast- Oral and IV Dye [id number] Drug Allergy Unknown N/A Yes latex [id number] Drug Allergy Unknown N/A 07/30/[address] [...] mg tablet Drug Allergy 04/19/2012 Yes povidone-iodine [id number] Drug Allergy Unknown N/A 08/28/2013 Yes Soap [id number] Drug Allergy Unknown N/A 08/28/2013 Medications There [...] MUSCULAR ATROPHY 06/03/2010 780.79 FATIGUE 06/03/2010 THONG POLICE MAGISTRATE, DWAINE T 250.00 DIABETES MELLITUS TYPE 2 [...] T 356.1 PERONEAL MUSCULAR ATROPHY 06/03/2010 THONG POLICE MAGISTRATE, DWAINE T 780.79 FATIGUE 06/03/2010 THONG POLICE MAGISTRATE, DWAINE T 250.00 DIABETES MELLITUS TYPE 2 06/03/2010 THONG SAAVEDRAN, DWAINE T 356.1 PERONEAL MUSCULAR ATROPHY 06/03/2010 THONG POLICE MAGISTRATE, DWAINE T 780.79 FATIGUE 06/03/2010 THONG POLICE MAGISTRATE, DWAINE T 250.00 DIABETES MELLITUS TYPE 2 06/03/2010 THONG SAAVEDRAN, DWAINE T 356.1 PERONEAL MUSCULAR ATROPHY 06/03/2010 THONG SAAVEDRAN, DWAINE T 780.79 FATIGUE 06/03/2010 THONG POLICE MAGISTRATE, DWAINE T 250.00 DIABETES MELLITUS TYPE 2 [...] 250.00 DIABETES MELLITUS TYPE 2 06/03/2010 THONG POLICE MAGISTRATE, DWAINE T 356.1 PERONEAL MUSCULAR ATROPHY 06/03/2010 [...] T 356.1 PERONEAL MUSCULAR ATROPHY 06/03/2010 THONG POLICE MAGISTRATE, DWAINE T 780.79 FATIGUE 06/03/2010 THONG HODGES, [...] 250.00 DIABETES MELLITUS TYPE 2 06/03/2010 TOHNG POLICE MAGISTRATE, DWAINE T 356.1 PERONEAL MUSCULAR ATROPHY 06/03/2010 [...] HODGES DWAINE T 780.79 FATIGUE 06/03/2010 THONG POLICE MAGISTRATE, DWAINE T 250.00 DIABETES MELLITUS TYPE 2 [...] MD 268.9 VITAMIN D DEFICIENCY 06/28/2010 THONG POLICE MAGISTRATE, DWAINE T 268.9 VITAMIN D DEFICIENCY 06/28/2010 THONG POLICE MAGISTRATE DWAINE T 268.9 VITAMIN D DEFICIENCY 06/28/2010 THONG POLICE MAGISTRATE DWAINE T 268.9 VITAMIN D DEFICIENCY 06/28/2010 THONG POLICE MAGISTRATE, DWAINE T 268.9 VITAMIN D DEFICIENCY 06/28/2010 THONG POLICE MAGISTRATE, DWAINE T 268.9 VITAMIN D DEFICIENCY 06/28/2010 THONG POLICE MAGISTRATE, DWAINE T 268.9 VITAMIN D DEFICIENCY 06/28/2010 THONG POLICE MAGISTRATE DWAINE T 268.9 VITAMIN D DEFICIENCY 06/28/2010 THONG POLICE MAGISTRATE DWAINE T 268.9 VITAMIN D DEFICIENCY 06/28/2010 RAYMOND MORRISON, YE Robles 268.9 VITAMIN D DEFICIENCY 06/28/2010 THONG POLICE MAGISTRATE DWAINE T 268.9 VITAMIN D DEFICIENCY 06/28/2010 [...] T 268.9 VITAMIN D DEFICIENCY 06/28/2010 DWAINE BEINTO APRN T 268.9 VITAMIN D DEFICIENCY 06/28/2010 [...] 272.4 HYPERLIPIDEMIA 07/02/2010 272.4 HYPERLIPIDEMIA 07/02/2010 THONG POLICE MAGISTRATE, DWAINE T 272.4 HYPERLIPIDEMIA 07/02/2010 272.4 HYPERLIPIDEMIA 07/02/2010 272.4 HYPERLIPIDEMIA 07/02/2010 272.4 HYPERLIPIDEMIA 07/02/2010 272.4 HYPERLIPIDEMIA 07/02/2010 272.4 HYPERLIPIDEMIA 07/02/2010 272.4 HYPERLIPIDEMIA 07/02/2010 272.4 HYPERLIPIDEMIA 07/02/2010 272.4 HYPERLIPIDEMIA 07/02/2010 272.4 HYPERLIPIDEMIA 07/02/2010 272.4 HYPERLIPIDEMIA 07/02/2010 272.4 HYPERLIPIDEMIA 07/02/2010 THONG POLICE MAGISTRATE, DWAINE T 272.4 HYPERLIPIDEMIA 07/02/2010 THONG POLICE MAGISTRATE, DWAINE T 272.4 HYPERLIPIDEMIA 07/02/2010 NEIDA TALBOT MD 272.4 HYPERLIPIDEMIA 07/02/2010 THONG POLICE MAGISTRATE, DWAINE T 272.4 HYPERLIPIDEMIA 07/02/2010 NEIDA TALBOT MD 272.4 HYPERLIPIDEMIA 07/02/2010 THONG POLICE MAGISTRATE, DWAINE T 272.4 HYPERLIPIDEMIA 07/02/2010 NEIDA TALBOT MD 272.4 HYPERLIPIDEMIA 07/02/2010 THONG POLICE MAGISTRATE, DWAINE T 272.4 HYPERLIPIDEMIA 07/02/2010 THONG POLICE MAGISTRATE, DWAINE T 272.4 HYPERLIPIDEMIA 07/02/2010 THONG POLICE MAGISTRATE, DWAINE T 272.4 HYPERLIPIDEMIA 07/02/2010 THONG POLICE MAGISTRATE, DWAINE T 272.4 HYPERLIPIDEMIA 07/02/2010 THONG POLICE MAGISTRATE, DWAINE T 272.4 HYPERLIPIDEMIA 07/02/2010 THONG POLICE MAGISTRATE, DWAINE T 272.4 HYPERLIPIDEMIA 07/02/2010 THONG POLICE MAGISTRATE, DWAINE T 272.4 HYPERLIPIDEMIA 07/02/2010 THONG POLICE MAGISTRATE, DWAINE T 272.4 HYPERLIPIDEMIA 07/02/2010 YE ANDRADE MD 272.4 HYPERLIPIDEMIA 07/02/2010 THONG POLICE MAGISTRATE, DWAINE T 272.4 HYPERLIPIDEMIA 07/02/2010 THONG POLICE MAGISTRATE, DWAINE T 272.4 HYPERLIPIDEMIA 07/02/2010 THONG POLICE MAGISTRATE, DWAINE T 272.4 HYPERLIPIDEMIA 07/02/2010 THONG POLICE MAGISTRATE, DWAINE T 272.4 HYPERLIPIDEMIA 07/02/2010 THONG POLICE MAGISTRATE, DWAINE T 272.4 HYPERLIPIDEMIA 07/02/2010 THONG POLICE MAGISTRATE, DWAINE T 272.4 HYPERLIPIDEMIA 07/02/2010 THONG POLICE MAGISTRATE, DWAIEN T 272.4 HYPERLIPIDEMIA 07/02/2010 THONG POLICE MAGISTRATE, DWAINE T 272.4 HYPERLIPIDEMIA 07/02/2010 THONG POLICE MAGISTRATE, DWAINE T 272.4 HYPERLIPIDEMIA 07/02/2010 NEIDA TALBOT MD 272.4 HYPERLIPIDEMIA 07/02/2010 THONG POLICE MAGISTRATE, DWAINE T 272.4 HYPERLIPIDEMIA 07/02/2010 THONG POLICE MAGISTRATE, DWAINE T 272.4 HYPERLIPIDEMIA 07/02/2010 THONG POLICE MAGISTRATE, DWAINE T 272.4 HYPERLIPIDEMIA 07/02/2010 THONG POLICE MAGISTRATE, DWAINE T 272.4 HYPERLIPIDEMIA 07/02/2010 THONG POLICE MAGISTRATE, DWAINE T 272.4 HYPERLIPIDEMIA 07/02/2010 THONG POLICE MAGISTRATE, DWAINE T 272.4 HYPERLIPIDEMIA 07/02/2010 THONG POLICE MAGISTRATE, DWAINE T 272.4 HYPERLIPIDEMIA 07/02/2010 NEIDA TALBOT MD 272.4 HYPERLIPIDEMIA 07/02/2010 272.4 HYPERLIPIDEMIA 07/02/2010 THONG POLICE MAGISTRATE, DWAINE T 272.4 HYPERLIPIDEMIA 07/02/2010 THONG POLICE MAGISTRATE, DWAINE T 272.4 HYPERLIPIDEMIA 07/02/2010 THONG POLICE MAGISTRATE, DWAINE T 272.4 HYPERLIPIDEMIA 07/02/2010 THONG POLICE MAGISTRATE, DWAINE T 272.4 HYPERLIPIDEMIA 07/02/2010 THONG POLICE MAGISTRATE, DWAINE T 272.4 HYPERLIPIDEMIA 07/02/2010 NEIDA TALBOT MD 272.4 HYPERLIPIDEMIA 07/02/2010 THONG POLICE MAGISTRATE, DWAINE T 272.4 HYPERLIPIDEMIA 07/02/2010 THONG POLICE MAGISTRATE, DWAINE T 272.4 HYPERLIPIDEMIA 07/02/2010 PRICE DO, GILBERTO K 272.4 HYPERLIPIDEMIA 07/02/2010 THONG POLICE MAGISTRATE, DWAINE T 272.4 HYPERLIPIDEMIA 07/02/2010 THONG POLICE MAGISTRATE, DWAINE T 272.4 HYPERLIPIDEMIA 07/02/2010 THONG POLICE MAGISTRATE, DWAINE T 272.4 HYPERLIPIDEMIA 07/02/2010 THONG POLICE MAGISTRATE, DWAINE T 272.4 HYPERLIPIDEMIA 07/02/2010 THONG POLICE MAGISTRATE, DWAINE T 272.4 HYPERLIPIDEMIA 07/02/2010 PRICE DO, GILBERTO K 272.4 HYPERLIPIDEMIA 07/02/2010 THONG POLICE MAGISTRATE, DWAINE T 272.4 HYPERLIPIDEMIA 07/02/2010 THONG POLICE MAGISTRATE, DWAINE T 272.4 HYPERLIPIDEMIA 07/02/2010 THONG POLICE MAGISTRATE, DWAINE T 272.4 HYPERLIPIDEMIA 07/02/2010 THONG POLICE MAGISTRATE, DWAINE T 272.4 HYPERLIPIDEMIA 07/02/2010 THONG POLICE MAGISTRATE, DWAINE T 272.4 HYPERLIPIDEMIA 07/02/2010 THONG POLICE MAGISTRATE, DWAINE T 272.4 HYPERLIPIDEMIA 07/02/2010 THONG POLICE MAGISTRATE, DWAINE T 272.4 HYPERLIPIDEMIA 07/02/2010 THONG POLICE MAGISTRATE, DWAINE T 272.4 HYPERLIPIDEMIA 07/02/2010 THONG POLICE MAGISTRATE, DWAINE T 272.4 HYPERLIPIDEMIA 07/02/2010 DWAINE BENITO [...] CHRONIC CUTANEOUS ULCER DECUBITUS BUTTOCK 08/07/2010 DWAINE BNEITO APRN V58.31 WOUND DRESSING 08/07/2010 707.05 CHRONIC [...] TALBOT MD V58.31 WOUND DRESSING 08/07/2010 THONG POLICE MAGISTRATE, DWAINE T 707.05 CHRONIC CUTANEOUS ULCER DECUBITUS [...] CHRONIC CUTANEOUS ULCER DECUBITUS BUTTOCK 08/07/2010 THONG POLICE MAGISTRATE, DWAINE T V58.31 WOUND DRESSING 08/07/2010 THONG [...] DOA K V58.31 WOUND DRESSING 08/07/2010 DWAINE BENTIO APRN T 707.05 CHRONIC CUTANEOUS ULCER DECUBITUS [...] CHRONIC CUTANEOUS ULCER DECUBITUS BUTTOCK 08/07/2010 THONG HOGDES DWAINE T V58.31 WOUND DRESSING 08/07/2010 DWAINE [...] HODGES DWAINE T 300.00 anxiety 08/14/2010 THONG POLICE MAGISTRATE, DWAINE T 338.29 CHRONIC PAIN 08/14/2010 THONG POLICE MAGISTRATE, DWAINE T 300.00 anxiety 08/14/2010 THONG POLICE MAGISTRATE, DWAINE T 338.29 CHRONIC PAIN 08/14/2010 THONG POLICE MAGISTRATE, DWAINE T 300.00 anxiety 08/14/2010 THONG POLICE MAGISTRATE, DWAINE T 338.29 CHRONIC PAIN 08/14/2010 YE ANDRADE MD 300.00 anxiety 08/14/2010 YE ANDRADE MD 338.29 CHRONIC PAIN 08/14/2010 THONG POLICE MAGISTRATE, DWAINE T 300.00 anxiety 08/14/2010 THONG POLICE MAGISTRATE, DWAINE T 338.29 CHRONIC PAIN 08/14/2010 THONG POLICE MAGISTRATE, DWAINE T 300.00 anxiety 08/14/2010 THONG SAAVEDRAN, DWAINE T 338.29 CHRONIC PAIN 08/14/2010 THONG SAAVEDRAN, DWAINE T 300.00 anxiety 08/14/2010 THONG HODGES DWAINE T 338.29 CHRONIC PAIN 08/14/2010 THONG HODGES, DWAINE T 300.00 anxiety 08/14/2010 THONG SAAVEDRAN DWAINE T 338.29 CHRONIC PAIN 08/14/2010 THONG POLICE MAGISTRATE, DWAINE T 300.00 anxiety 08/14/2010 THONG POLICE MAGISTRATE, DWAINE T 338.29 CHRONIC PAIN 08/14/2010 THONG POLICE MAGISTRATE, DWAINE T 300.00 anxiety 08/14/2010 THONG POLICE MAGISTRATE, DWAINE T 338.29 CHRONIC PAIN 08/14/2010 THONG POLICE MAGISTRATE, DWAINE T 300.00 anxiety 08/14/2010 THONG POLICE MAGISTRATE, DWAINE T 338.29 CHRONIC PAIN 08/14/2010 THONG HODGES, DWAINE T 300.00 anxiety 08/14/2010 THONG HODGES DWAINE T 338.29 CHRONIC PAIN 08/14/2010 THONG POLICE MAGISTRATE, DWAINE T 300.00 anxiety 08/14/2010 THONG POLICE MAGISTRATE, DWAINE T 338.29 CHRONIC PAIN 08/14/2010 NEIDA [...] THONG HODGES DWAINE T 300.00 anxiety 08/14/2010 HTONG HODGES DWAINE T 338.29 CHRONIC PAIN 08/14/2010 THONG POLICE MAGISTRATE, DWAINE T 300.00 anxiety 08/14/2010 THONG POLICE MAGISTRATE, DWAINE T 338.29 CHRONIC PAIN 08/14/2010 THONG POLICE MAGISTRATE, DWAINE T 300.00 anxiety 08/14/2010 THONG POLICE MAGISTRATE, DWAINE T 338.29 CHRONIC PAIN 08/14/2010 THONG POLICE MAGISTRATE, DWAINE T 300.00 anxiety 08/14/2010 THONG POLICE MAGISTRATE, DWAINE T 338.29 CHRONIC PAIN 08/14/2010 THONG POLICE MAGISTRATE, DWAINE T 300.00 anxiety 08/14/2010 THONG POLICE MAGISTRATE, DWAINE T 338.29 CHRONIC PAIN 08/14/2010 PRICE DO, GILBERTO K 300.00 anxiety 08/14/2010 PRICE DO, GILBERTO K 338.29 CHRONIC PAIN 08/14/2010 THONG POLICE MAGISTRATE, DWAINE T 300.00 anxiety 08/14/2010 THONG POLICE MAGISTRATE, DWAINE T 338.29 CHRONIC PAIN 08/14/2010 THONG POLICE MAGISTRATE, DWAINE T 300.00 anxiety 08/14/2010 THONG POLICE MAGISTRATE, DWAINE T 338.29 CHRONIC PAIN 08/14/2010 THONG POLICE MAGISTRATE, DWAINE T 300.00 anxiety 08/14/2010 THONG POLICE MAGISTRATE, DWAINE T 338.29 CHRONIC PAIN 08/14/2010 THONG POLICE MAGISTRATE, DWAINE T 300.00 anxiety 08/14/2010 THONG POLICE MAGISTRATE, DWAINE T 338.29 CHRONIC PAIN 08/14/2010 THONG POLICE MAGISTRATE, DWAINE T 300.00 anxiety 08/14/2010 THONG POLICE MAGISTRATE, DWAINE T 338.29 CHRONIC PAIN 08/14/2010 THONG POLICE MAGISTRATE, DWAINE T 300.00 anxiety 08/14/2010 THONG POLICE MAGISTRATE, DWAINE T 338.29 CHRONIC PAIN 08/14/2010 THONG POLICE MAGISTRATE, DWAINE T 300.00 anxiety 08/14/2010 THONG POLICE MAGISTRATE, DWAINE T 338.29 CHRONIC PAIN 08/14/2010 THONG POLICE MAGISTRATE, DWAINE T 300.00 anxiety 08/14/2010 THONG POLICE MAGISTRATE, DWAINE T 338.29 CHRONIC PAIN 08/14/2010 THONG POLICE MAGISTRATE, DWAINE T 300.00 anxiety 08/14/2010 THONG POLICE MAGISTRATE, DWAINE T 338.29 CHRONIC PAIN 08/14/2010 THONG POLICE MAGISTRATE, DWAINE T 300.00 anxiety 08/14/2010 THONG POLICE MAGISTRATE, DWAINE T 338.29 CHRONIC PAIN 09/17/2010 Ot [...] T 599.0 URINARY TRACT INFECTION 09/21/2010 THONG POLICE MAGISTRATE, DWAINE T 599.0 URINARY TRACT INFECTION 09/21/2010 THONG POLICE MAGISTRATE, DWAINE T 599.0 URINARY TRACT INFECTION 09/21/2010 THONG POLICE MAGISTRATE, DWAINE T 599.0 URINARY TRACT INFECTION 09/21/2010 THONG POLICE MAGISTRATE, DWAINE T 599.0 URINARY TRACT INFECTION 09/21/2010 RAYMOND MORRISON, YE M 599.0 URINARY TRACT INFECTION 09/21/2010 THONG POLICE MAGISTRATE, DWAINE T 599.0 URINARY TRACT INFECTION 09/21/2010 THONG POLICE MAGISTRATE, DWAINE T 599.0 URINARY TRACT INFECTION 09/21/2010 THONG POLICE MAGISTRATE, DWAINE T 599.0 URINARY TRACT INFECTION 09/21/2010 THONG POLICE MAGISTRATE, DWAINE T 599.0 URINARY TRACT INFECTION 09/21/2010 THONG POLICE MAGISTRATE, DWAINE T 599.0 URINARY TRACT INFECTION 09/21/2010 THONG POLICE MAGISTRATE, DWAINE T 599.0 URINARY TRACT INFECTION 09/21/2010 THONG POLICE MAGISTRATE, DWAINE T 599.0 URINARY TRACT INFECTION 09/21/2010 THONG POLICE MAGISTRATE, DWAINE T 599.0 URINARY TRACT INFECTION 09/21/2010 THONG POLICE MAGISTRATE, DWAINE T 599.0 URINARY TRACT INFECTION 09/21/2010 ANTIONE MORRISON, NEIDA 599.0 URINARY TRACT INFECTION 09/21/2010 THONG POLICE MAGISTRATE, DWAINE T 599.0 URINARY TRACT INFECTION 09/21/2010 THONG POLICE MAGISTRATE, DWAINE T 599.0 URINARY TRACT INFECTION 09/21/2010 THONG POLICE MAGISTRATE, DWAINE T 599.0 URINARY TRACT INFECTION 09/21/2010 THONG POLICE MAGISTRATE, DWAINE T 599.0 URINARY TRACT INFECTION 09/21/2010 THONG POLICE MAGISTRATE, DWAINE T 599.0 URINARY TRACT INFECTION 09/21/2010 THONG POLICE MAGISTRATE, DWAINE T 599.0 URINARY TRACT INFECTION 09/21/2010 THONG POLICE MAGISTRATE, DWAINE T 599.0 URINARY TRACT INFECTION 09/21/2010 NEIDA TALBOT MD 599.0 URINARY TRACT INFECTION 09/21/2010 599.0 URINARY TRACT INFECTION 09/21/2010 THONG POLICE MAGISTRATE, DWAINE T 599.0 URINARY TRACT INFECTION 09/21/2010 THONG POLICE MAGISTRATE, DWAINE T 599.0 URINARY TRACT INFECTION 09/21/2010 THONG POLICE MAGISTRATE, DWAINE T 599.0 URINARY TRACT INFECTION 09/21/2010 THONG POLICE MAGISTRATE, DWAINE T 599.0 URINARY TRACT INFECTION 09/21/2010 THONG HODGES, DWAINE T 599.0 URINARY TRACT INFECTION 09/21/2010 NEIDA TALBOT MD 599.0 URINARY TRACT INFECTION 09/21/2010 THONG POLICE MAGISTRATE, DWAINE T 599.0 URINARY TRACT INFECTION 09/21/2010 THONG POLICE MAGISTRATE, DWAINE T 599.0 URINARY TRACT INFECTION 09/21/2010 PRICE DO, GILBERTO K 599.0 URINARY TRACT INFECTION 09/21/2010 THONG POLICE MAGISTRATE, DWAINE T 599.0 URINARY TRACT INFECTION 09/21/2010 THONG POLICE MAGISTRATE, DWAINE T 599.0 URINARY TRACT INFECTION 09/21/2010 THONG POLICE MAGISTRATE, DWAINE T 599.0 URINARY TRACT INFECTION 09/21/2010 THONG POLICE MAGISTRATE, DWAINE T 599.0 URINARY TRACT INFECTION 09/21/2010 THONG POLICE MAGISTRATE, DWAINE T 599.0 URINARY TRACT INFECTION 09/21/2010 PRICE DO, GILBERTO K 599.0 URINARY TRACT INFECTION 09/21/2010 THONG POLICE MAGISTRATE, DWAINE T 599.0 URINARY TRACT INFECTION 09/21/2010 THONG POLICE MAGISTRATEDWAINE T 599.0 URINARY TRACT INFECTION 09/21/2010 THONG POLICE MAGISTRATE, DWAINE T 599.0 URINARY TRACT INFECTION 09/21/2010 THONG POLICE MAGISTRATE, DWAINE T 599.0 URINARY TRACT INFECTION 09/21/2010 THONG POLICE MAGISTRATE, DWAINE T 599.0 URINARY TRACT INFECTION 09/21/2010 THONG POLICE MAGISTRATE, DWAINE T 599.0 URINARY TRACT INFECTION 09/21/2010 THONG POLICE MAGISTRATE, DWAINE T 599.0 URINARY TRACT INFECTION 09/21/2010 THONG POLICE MAGISTRATE, DWAINE T 599.0 URINARY TRACT INFECTION 09/21/2010 TOHNG POLICE MAGISTRATE, DWAINE T 599.0 URINARY TRACT INFECTION 09/21/2010 THONG POLICE MAGISTRATE, DWAINE T 599.0 URINARY TRACT INFECTION 10/07/2010 [...] AND ABSCESS OF UNSPECIFIED SITES 11/08/2010 THONG POLICE MAGISTRATE, DWAINE T 682.9 CELLULITIS AND ABSCESS OF [...] AND ABSCESS OF UNSPECIFIED SITES 11/08/2010 DWAINE BEINTO APRN 682.9 CELLULITIS AND ABSCESS OF UNSPECIFIED [...] (3 YRS AND ABOVE, IM) 01/06/2011 THONG POLICE MAGISTRATE, DWAINE T V04.81 FLU DX (3 YRS AND ABOVE, IM) 01/06/2011 THONG POLICE MAGISTRATE, DWAINE T V04.81 FLU DX (3 YRS AND ABOVE, IM) 01/06/2011 THONG POLICE MAGISTRATE, DWAINE T V04.81 FLU DX (3 YRS AND ABOVE, IM) 01/06/2011 THONG SAAVEDRAN, DWAINE T V04.81 FLU DX (3 YRS AND ABOVE, IM) 01/06/2011 ENIDA TALBOT MD V04.81 FLU DX (3 YRS [...] MD 780.4 DIZZINESS AND GIDDINESS 03/07/2011 THONG POLICE MAGISTRATE, DWAINE T 780.4 DIZZINESS AND GIDDINESS 03/07/2011 [...] T 780.4 DIZZINESS AND GIDDINESS 03/07/2011 THONG POLICE MAGISTRATE DWAINE T 780.4 DIZZINESS AND GIDDINESS 03/07/2011 THONG POLICE MAGISTRATEDWAINE Arredondo T 780.4 DIZZINESS AND GIDDINESS 03/07/2011 THONG POLICE MAGISTRATEDWAINE T 780.4 DIZZINESS AND GIDDINESS 03/07/2011 DWAINE BENITO APRN T 780.4 DIZZINESS AND GIDDINESS 03/07/2011 NEIDA TALBOT MD 780.4 DIZZINESS AND GIDDINESS 03/07/2011 780.4 DIZZINESS AND GIDDINESS 03/07/2011 THONG POLICE MAGISTRATEDWAINE Arredondo T 780.4 DIZZINESS AND GIDDINESS 03/07/2011 [...] NEIDA TALBOT MD 564.00 CONSTIPATION 07/23/2012 DWAINE BENIOT APRN T 564.00 CONSTIPATION 07/23/2012 NEIDA TALBOT MD 564.00 CONSTIPATION 07/23/2012 DWAINE BENITO APRN T 564.00 CONSTIPATION 07/23/2012 NEIDA TALBOT MD 564.00 CONSTIPATION 07/23/2012 DWAINE BENITO APRN T 564.00 CONSTIPATION 07/23/2012 DWAINE BENITO APRN 564.00 CONSTIPATION 07/23/2012 DWAINE BENITO APRN T 564.00 CONSTIPATION 07/23/2012 THONG POLICE MAGISTRATE, DWAINE T 564.00 CONSTIPATION 07/23/2012 THONG POLICE MAGISTRATE, DWAINE T 564.00 CONSTIPATION 07/23/2012 THONG POLICE MAGISTRATE, DWAINE T 564.00 CONSTIPATION 07/23/2012 THONG POLICE MAGISTRATE, DWAINE T 564.00 CONSTIPATION 07/23/2012 THONG POLICE MAGISTRATE, DWAINE T 564.00 CONSTIPATION 07/23/2012 YE ANDRADE MD 564.00 CONSTIPATION 07/23/2012 THONG POLICE MAGISTRATE, DWAINE T 564.00 CONSTIPATION 07/23/2012 THONG POLICE MAGISTRATE, DWAINE T 564.00 CONSTIPATION 07/23/2012 THONG POLICE MAGISTRATE, DWAINE T 564.00 CONSTIPATION 07/23/2012 THONG POLICE MAGISTRATE, DWAINE T 564.00 CONSTIPATION 07/23/2012 THONG POLICE MAGISTRATE, DWAINE T 564.00 CONSTIPATION 07/23/2012 THONG POLICE MAGISTRATE, DWAINE T 564.00 CONSTIPATION 07/23/2012 THONG POLICE MAGISTRATE, DWAINE T 564.00 CONSTIPATION 07/23/2012 THONG POLICE MAGISTRATE, DWAINE T 564.00 CONSTIPATION 07/23/2012 THONG POLICE MAGISTRATE, DWAINE T 564.00 CONSTIPATION 07/23/2012 NEIDA TALBOT MD 564.00 CONSTIPATION 07/23/2012 THONG POLICE MAGISTRATE, DWAINE T 564.00 CONSTIPATION 07/23/2012 THONG POLICE MAGISTRATE, DWAINE T 564.00 CONSTIPATION 07/23/2012 THONG POLICE MAGISTRATE, DWAINE T 564.00 CONSTIPATION 07/23/2012 THONG POLICE MAGISTRATE, DWAINE T 564.00 CONSTIPATION 07/23/2012 THONG POLICE MAGISTRATE, DWAINE T 564.00 CONSTIPATION 07/23/2012 THONG POLICE MAGISTRATE, DWAINE T 564.00 CONSTIPATION 07/23/2012 THONG POLICE MAGISTRATE, DWAINE T 564.00 CONSTIPATION 07/23/2012 NEIDA TALBOT MD 564.00 CONSTIPATION 07/23/2012 564.00 CONSTIPATION 07/23/2012 THONG POLICE MAGISTRATE, DWAINE T 564.00 CONSTIPATION 07/23/2012 THONG POLICE MAGISTRATE, DWAINE T 564.00 CONSTIPATION 07/23/2012 THONG POLICE MAGISTRATE, DWAINE T 564.00 CONSTIPATION 07/23/2012 THONG POLICE MAGISTRATE, DWAINE T 564.00 CONSTIPATION 07/23/2012 THONG SAAVEDRAN, DWAINE T 564.00 CONSTIPATION 07/23/2012 NEIDA TALBOT MD 564.00 CONSTIPATION 07/23/2012 THONG POLICE MAGISTRATE, DWAINE T 564.00 CONSTIPATION 07/23/2012 THONG POLICE MAGISTRATE, DWAINE T 564.00 CONSTIPATION 07/23/2012 PRICE DO, GILBERTO K 564.00 CONSTIPATION 07/23/2012 THONG POLICE MAGISTRATE, DWAINE T 564.00 CONSTIPATION 07/23/2012 THONG POLICE MAGISTRATE, DWAINE T 564.00 CONSTIPATION 07/23/2012 THONG POLICE MAGISTRATE, DWAINE T 564.00 CONSTIPATION 07/23/2012 THONG POLICE MAGISTRATE, DWAINE T 564.00 CONSTIPATION 07/23/2012 PRICE DO, GILBERTO K 564.00 CONSTIPATION 07/23/2012 THONG POLICE MAGISTRATE, DWAINE T 564.00 CONSTIPATION 07/23/2012 THONG POLICE MAGISTRATE, DWAINE T 564.00 CONSTIPATION 07/23/2012 THONG POLICE MAGISTRATE, DWAINE T 564.00 CONSTIPATION 07/23/2012 THONG POLICE MAGISTRATE, DWAINE T 564.00 CONSTIPATION 07/23/2012 THONG POLICE MAGISTRATE, DWAINE T 564.00 CONSTIPATION 07/23/2012 THONG POLICE MAGISTRATE, DWAINE T 564.00 CONSTIPATION 07/23/2012 THONG POLICE MAGISTRATE, DWAINE T 564.00 CONSTIPATION 07/23/2012 THONG POLICE MAGISTRATE, DWAINE T 564.00 CONSTIPATION 07/23/2012 THONG POLICE MAGISTRATE, DWAINE T 564.00 CONSTIPATION 07/23/2012 THONG POLICE MAGISTRATE, DWAINE T 564.00 CONSTIPATION 08/11/2012 E879.6 URINARY [...] WITHOUT MISADVENTURE AT TIME OF PROCED 08/11/2012 WDAINE BENITO APRN E879.6 URINARY CATHETERIZATION THE CAUSE [...] MISADVENTURE AT TIME OF PROCED 08/11/2012 THONG POLICE MAGISTRATE, DWAINE T E879.6 URINARY CATHETERIZATION THE CAUSE [...] 09/13/2012 NEIDA TALBOT MD 724.3 SCIATICA 09/13/2012 THNOG POLICE MAGISTRATE, DWAINE T 724.3 SCIATICA 09/13/2012 THONG POLICE MAGISTRATE, DWAINE T 724.3 SCIATICA 09/13/2012 THONG POLICE MAGISTRATE, DWAINE T 724.3 SCIATICA 09/13/2012 THONG POLICE MAGISTRATE, DWAINE T 724.3 SCIATICA 09/13/2012 THONG POLICE MAGISTRATE, DWAINE T 724.3 SCIATICA 09/13/2012 THONG POLICE MAGISTRATE, DWAINE T 724.3 SCIATICA 09/13/2012 THONG POLICE MAGISTRATE, DWAINE T 724.3 SCIATICA 09/13/2012 THONG POLICE MAGISTRATE, DWAINE T 724.3 SCIATICA 09/13/2012 RAYMOND MORRISON, YE Robles 724.3 SCIATICA 09/13/2012 THONG POLICE MAGISTRATE, DWAINE T 724.3 SCIATICA 09/13/2012 THONG POLICE MAGISTRATE, DWAINE T 724.3 SCIATICA 09/13/2012 THONG POLICE MAGISTRATE, DWAINE T 724.3 SCIATICA 09/13/2012 THONG SAAVEDRAN, [...] SAAVEDRAN, DWAINE T 724.3 SCIATICA 09/13/2012 [employer] POL[employer] MAGISTRATE, DWAINE T 724.3 SCIATICA 09/13/2012 [employer] POLICE MAGISTRATE, DWAINE T 724.3 SCIATICA 09/13/2012 THONG SAAVEDRAN, [...] GILBERTO K 724.3 SCIATICA 09/13/2012 THONG SAAVEDRAN, DWIANE T 724.3 SCIATICA 09/13/2012 THONG SAAVEDRAN, DWAINE [...] MORRISON, NEIDA V76.12 MAMMOGRAM SCREENING 11/30/2012 [employer] MAG[employer], DWAINE T V76.12 MAMMOGRAM SCREENING 11/30/2012 [employer] POL[employer] MAGISTRATE, DWAINE T V76.12 MAMMOGRAM SCREENING 11/30/2012 [employer] POLICE MAGISTRATE, DWAINE T V76.12 MAMMOGRAM SCREENING 11/30/2012 [employer] POLICE MAGISTRATE, DWAINE T V76.12 MAMMOGRAM SCREENING 11/30/2012 [employer] POL[employer] MAGISTRATE, DWAINE T V76.12 MAMMOGRAM SCREENING 11/30/2012 [employer] POLICE MAGISTRATE, DWAINE T V76.12 MAMMOGRAM SCREENING 11/30/2012 [employer] POL[employer] MAGISTRATE, DWAINE T V76.12 MAMMOGRAM SCREENING 11/30/2012 [employer] MAGISTRATE, DWAINE T V76.12 MAMMOGRAM SCREENING 11/30/2012 RAYMOND MORRISON, YE Robles V76.12 MAMMOGRAM SCREENING 11/30/2012 [employer] POL[employer] MAGISTRATE, DWAINE T V76.12 MAMMOGRAM SCREENING 11/30/2012 [employer] POL[employer] MAGISTRATE, DWAINE T V76.12 MAMMOGRAM SCREENING 11/30/2012 [employer] POLICE MAGISTRATE, DWAINE T V76.12 MAMMOGRAM SCREENING 11/30/2012 [employer] POL[employer] MAGISTRATE, DWAINE T V76.12 MAMMOGRAM SCREENING 11/30/2012 [employer] POLICE MAGISTRATE, DWAINE T V76.12 MAMMOGRAM SCREENING 11/30/2012 [employer] POLICE MAGISTRATE, DWAINE T V76.12 MAMMOGRAM SCREENING 11/30/2012 [employer] POLICE MAGISTRATE, DWAINE T V76.12 MAMMOGRAM SCREENING 11/30/2012 [employer] POL[employer] MAGISTRATE, DWAINE T V76.12 MAMMOGRAM SCREENING 11/30/2012 [employer] POL[employer] MAGISTRATE, DWAINE T V76.12 MAMMOGRAM SCREENING 11/30/2012 ANTIONE MORRISON, NEIDA V76.12 MAMMOGRAM SCREENING 11/30/2012 [employer] MAGISTRATE, DWAINE T V76.12 MAMMOGRAM SCREENING 11/30/2012 [employer] POL[employer] MAGISTRATE, DWAINE T V76.12 MAMMOGRAM SCREENING 11/30/2012 [employer] POLICE MAGISTRATE, DWAINE T V76.12 MAMMOGRAM SCREENING 11/30/2012 [employer] POLICE MAGISTRATE, DWAINE T V76.12 MAMMOGRAM SCREENING 11/30/2012 [employer] POLICE MAGISTRATE, DWAINE T V76.12 MAMMOGRAM SCREENING 11/30/2012 [employer] POLICE MAGISTRATE, DWAINE T V76.12 MAMMOGRAM SCREENING 11/30/2012 [employer] POL[employer] MAGISTRATE, DWAINE T V76.12 MAMMOGRAM SCREENING 11/30/2012 ANTIONE MORRISON, NEIDA V76.12 MAMMOGRAM SCREENING 11/30/2012 V76.12 MAMMOGRAM SCREENING 11/30/2012 [employer] POL[employer] MAGISTRATE, DWAINE T V76.12 MAMMOGRAM SCREENING 11/30/2012 [employer] POLICE MAGISTRATE, DWAINE T V76.12 MAMMOGRAM SCREENING 11/30/2012 [employer] POLICE MAGISTRATE, DWAINE T V76.12 MAMMOGRAM SCREENING 11/30/2012 [employer] POLICE MAGISTRATE, DWAINE T V76.12 MAMMOGRAM SCREENING 11/30/2012 [employer] POLICE MAGISTRATE, DWAINE T V76.12 MAMMOGRAM SCREENING 11/30/2012 ANTIONE MORRISON, NEIDA V76.12 MAMMOGRAM SCREENING 11/30/2012 [employer] MAGISTRATE, DWAINE T V76.12 MAMMOGRAM SCREENING 11/30/2012 [employer] POL[employer] MAGISTRATE, DWAINE T V76.12 MAMMOGRAM SCREENING 11/30/2012 PRICE DO, GILBERTO K V76.12 MAMMOGRAM SCREENING 11/30/2012 [employer] MAGISTRATE, DWAINE T V76.12 MAMMOGRAM SCREENING 11/30/2012 [employer] POL[employer] MAGISTRATE, DWAINE T V76.12 MAMMOGRAM SCREENING 11/30/2012 [employer] POLICE MAGISTRATE, DWAINE T V76.12 MAMMOGRAM SCREENING 11/30/2012 [employer] POL[employer] MAGISTRATE, DWAINE T V76.12 MAMMOGRAM SCREENING 11/30/2012 PRICE DO, GILBERTO K V76.12 MAMMOGRAM SCREENING 11/30/2012 THONG POLICE MAGISTRATE, DWAINE T V76.12 MAMMOGRAM SCREENING 11/30/2012 THONG POLICE MAGISTRATE, DWAINE T V76.12 MAMMOGRAM SCREENING 11/30/2012 THONG POLICE MAGISTRATE, DWAINE T V76.12 MAMMOGRAM SCREENING 11/30/2012 THONG POLICE MAGISTRATE, DWAINE T V76.12 MAMMOGRAM SCREENING 11/30/2012 THONG POLICE MAGISTRATE, DWAINE T V76.12 MAMMOGRAM SCREENING 11/30/2012 THONG POLICE MAGISTRATE, DWAINE T V76.12 MAMMOGRAM SCREENING 11/30/2012 THONG POLICE MAGISTRATE, DWAINE T V76.12 MAMMOGRAM SCREENING 11/30/2012 THONG POLICE MAGISTRATE, DWAINE T V76.12 MAMMOGRAM SCREENING 11/30/2012 THONG POLICE MAGISTRATE, DWAINE T V76.12 MAMMOGRAM SCREENING 11/30/2012 THONG POLICE MAGISTRATE, DWAINE T V76.12 MAMMOGRAM SCREENING 01/27/2013 NEIDA TALBOT MD 465.9 UPPER RESPIRATORY INFECTION 01/27/2013 THONG HODGES, DWAINE Rushing 465.9 UPPER RESPIRATORY INFECTION 01/27/2013 HUERTER MD, NEIDA 465.9 UPPER RESPIRATORY INFECTION 01/27/2013 THONG POLICE MAGISTRATE, DWAINE T 465.9 UPPER RESPIRATORY INFECTION 01/27/2013 NEIDA TALBOT MD 465.9 UPPER RESPIRATORY INFECTION 01/27/2013 THONG POLICE MAGISTRATE, DWAINE T 465.9 UPPER RESPIRATORY INFECTION 01/27/2013 THONG POLICE MAGISTRATE, DWAINE T 465.9 UPPER RESPIRATORY INFECTION 01/27/2013 THONG POLICE MAGISTRATE, DWAINE T 465.9 UPPER RESPIRATORY INFECTION 01/27/2013 THONG POLICE MAGISTRATE, DWAINE T 465.9 UPPER RESPIRATORY INFECTION 01/27/2013 THONG POLICE MAGISTRATE, DWAINE T 465.9 UPPER RESPIRATORY INFECTION 01/27/2013 THONG POLICE MAGISTRATE, DWAINE T 465.9 UPPER RESPIRATORY INFECTION 01/27/2013 THONG POLICE MAGISTRATE, DWAINE T 465.9 UPPER RESPIRATORY INFECTION 01/27/2013 THONG POLICE MAGISTRATE, DWAINE T 465.9 UPPER RESPIRATORY INFECTION 01/27/2013 RAYMOND MORRISON, YE Robles 465.9 UPPER RESPIRATORY INFECTION 01/27/2013 THONG POLICE MAGISTRATE, DWAINE T 465.9 UPPER RESPIRATORY INFECTION 01/27/2013 THONG POLICE MAGISTRATE, DWAINE T 465.9 UPPER RESPIRATORY INFECTION 01/27/2013 THONG POLICE MAGISTRATE, DWAINE T 465.9 UPPER RESPIRATORY INFECTION 01/27/2013 THONG POLICE MAGISTRATE, DWAINE T 465.9 UPPER RESPIRATORY INFECTION 01/27/2013 THONG POLICE MAGISTRATE, DWAINE T 465.9 UPPER RESPIRATORY INFECTION 01/27/2013 THONG POLICE MAGISTRATE, DWAINE T 465.9 UPPER RESPIRATORY INFECTION 01/27/2013 THONG POLICE MAGISTRATE, DWAINE T 465.9 UPPER RESPIRATORY INFECTION 01/27/2013 THONG POLICE MAGISTRATE, DWAINE T 465.9 UPPER RESPIRATORY INFECTION 01/27/2013 THONG POLICE MAGISTRATE, DWAINE T 465.9 UPPER RESPIRATORY INFECTION 01/27/2013 NEIDA TALBOT MD 465.9 UPPER RESPIRATORY INFECTION 01/27/2013 THONG POLICE MAGISTRATE, DWAINE T 465.9 UPPER RESPIRATORY INFECTION 01/27/2013 THONG POLICE MAGISTRATE, DWAINE T 465.9 UPPER RESPIRATORY INFECTION 01/27/2013 THONG POLICE MAGISTRATE, DWAINE T 465.9 UPPER RESPIRATORY INFECTION 01/27/2013 THONG POLICE MAGISTRATE, DWAINE T 465.9 UPPER RESPIRATORY INFECTION 01/27/2013 THONG POLICE MAGISTRATE, DWAINE T 465.9 UPPER RESPIRATORY INFECTION 01/27/2013 THONG POLICE MAGISTRATE, DWAINE T 465.9 UPPER RESPIRATORY INFECTION 01/27/2013 TOHNG POLICE MAGISTRATE, DWAINE T 465.9 UPPER RESPIRATORY INFECTION 01/27/2013 NEIDA TALBOT MD 465.9 UPPER RESPIRATORY INFECTION 01/27/2013 465.9 UPPER RESPIRATORY INFECTION 01/27/2013 THONG POLICE MAGISTRATE, DWAINE T 465.9 UPPER RESPIRATORY INFECTION 01/27/2013 THONG POLICE MAGISTRATE, DWAINE T 465.9 UPPER RESPIRATORY INFECTION 01/27/2013 THONG POLICE MAGISTRATE, DWAINE T 465.9 UPPER RESPIRATORY INFECTION 01/27/2013 THONG POLICE MAGISTRATE, DWAINE T 465.9 UPPER RESPIRATORY INFECTION 01/27/2013 THONG POLICE MAGISTRATE, DWAINE T 465.9 UPPER RESPIRATORY INFECTION 01/27/2013 NEIDA TALBOT MD 465.9 UPPER RESPIRATORY INFECTION 01/27/2013 THONG POLICE MAGISTRATE, DWAINE T 465.9 UPPER RESPIRATORY INFECTION 01/27/2013 THONG POLICE MAGISTRATE, DWAINE T 465.9 UPPER RESPIRATORY INFECTION 01/27/2013 PRICE DO, GILBERTO K 465.9 UPPER RESPIRATORY INFECTION 01/27/2013 THONG POLICE MAGISTRATE, DWAINE T 465.9 UPPER RESPIRATORY INFECTION 01/27/2013 THONG POLICE MAGISTRATE, DWAINE T 465.9 UPPER RESPIRATORY INFECTION 01/27/2013 THONG POLICE MAGISTRATE, DWAINE T 465.9 UPPER RESPIRATORY INFECTION 01/27/2013 THONG POLICE MAGISTRATE, DWAINE T 465.9 UPPER RESPIRATORY INFECTION 01/27/2013 PRICE DO, GILBERTO K 465.9 UPPER RESPIRATORY INFECTION 01/27/2013 THONG POLICE MAGISTRATE, DWAINE T 465.9 UPPER RESPIRATORY INFECTION 01/27/2013 THONG POLICE MAGISTRATE, DWAINE T 465.9 UPPER RESPIRATORY INFECTION 01/27/2013 THONG POLICE MAGISTRATE, DWAINE T 465.9 UPPER RESPIRATORY INFECTION 01/27/2013 THONG POLICE MAGISTRATE, DWAINE T 465.9 UPPER RESPIRATORY INFECTION 01/27/2013 THONG POLICE MAGISTRATE, DWAINE T 465.9 UPPER RESPIRATORY INFECTION 01/27/2013 THONG POLICE MAGISTRATE, DWAINE T 465.9 UPPER RESPIRATORY INFECTION 01/27/2013 THONG POLICE MAGISTRATE, DWAINE T 465.9 UPPER RESPIRATORY INFECTION 01/27/2013 THONG POLICE MAGISTRATE, DWAINE T 465.9 UPPER RESPIRATORY INFECTION 01/27/2013 THONG POLICE MAGISTRATE, DWAINE T 465.9 UPPER RESPIRATORY INFECTION 01/27/2013 THONG POLICE MAGISTRATE, DWAINE T 465.9 UPPER RESPIRATORY INFECTION 06/14/2013 YE ANDRADE MD 355.9 NEUROPATHY 06/14/2013 YE ANDRADE MD 788.1 pain during urination (dysuria) 06/14/2013 DWAINE BENITO APRN T 355.9 NEUROPATHY 06/14/2013 THONG HODGES DWAINE T 788.1 pain during urination (dysuria) 06/14/2013 THONG POLICE MAGISTRATE, DWAINE T 355.9 NEUROPATHY 06/14/2013 THONG POLICE MAGISTRATE, DWAINE T 788.1 DYSURIA 06/14/2013 THONG POLICE MAGISTRATE, DWAINE T 355.9 NEUROPATHY 06/14/2013 THONG POLICE MAGISTRATE, DWAINE T 788.1 DYSURIA 06/14/2013 THONG POLICE MAGISTRATE, DWAINE T 355.9 NEUROPATHY 06/14/2013 THONG POLICE MAGISTRATE, DWAINE T 788.1 DYSURIA 06/14/2013 THONG POLICE MAGISTRATE, DWAINE T 355.9 NEUROPATHY 06/14/2013 THONG POLICE MAGISTRATE, DWAINE T 788.1 DYSURIA 06/14/2013 THONG POLICE MAGISTRATE, DWAINE T 355.9 NEUROPATHY 06/14/2013 THONG POLICE MAGISTRATE, DWAINE T 788.1 DYSURIA 06/14/2013 THONG POLICE MAGISTRATE, DWAINE T 355.9 NEUROPATHY 06/14/2013 THONG POLICE MAGISTRATE, DWAINE T 788.1 DYSURIA 06/14/2013 THONG POLICE MAGISTRATE, DWAINE T 355.9 NEUROPATHY 06/14/2013 THONG POLICE MAGISTRATE, DWAINE T 788.1 DYSURIA 06/14/2013 THONG POLICE MAGISTRATE, DWAINE T 355.9 NEUROPATHY 06/14/2013 THONG POLICE MAGISTRATE, DWAINE T 788.1 DYSURIA 06/14/2013 NEIDA TALBOT MD 355.9 NEUROPATHY 06/14/2013 NEIDA TALBOT MD 788.1 DYSURIA 06/14/2013 THONG POLICE MAGISTRATE, DWAINE T 355.9 NEUROPATHY 06/14/2013 THONG POLICE MAGISTRATE, DWAINE T 788.1 DYSURIA 06/14/2013 THONG POLICE MAGISTRATE, DWAINE T 355.9 NEUROPATHY 06/14/2013 THONG POLICE MAGISTRATE, DWAINE T 788.1 DYSURIA 06/14/2013 THONG POLICE MAGISTRATE, DWAINE T 355.9 NEUROPATHY 06/14/2013 THONG POLICE MAGISTRATE, DWAINE T 788.1 DYSURIA 06/14/2013 THONG POLICE MAGISTRATE, DWAINE T 355.9 NEUROPATHY 06/14/2013 THONG POLICE MAGISTRATE, DWAINE T 788.1 DYSURIA 06/14/2013 THONG POLICE MAGISTRATE, DWAINE T 355.9 NEUROPATHY 06/14/2013 THONG POLICE MAGISTRATE, DWAINE T 788.1 DYSURIA 06/14/2013 THONG POLICE MAGISTRATE, DWAINE T 355.9 NEUROPATHY 06/14/2013 THONG POLICE MAGISTRATE, DWAINE T 788.1 DYSURIA 06/14/2013 THONG POLICE MAGISTRATE, DWAINE T 355.9 NEUROPATHY 06/14/2013 THONG POLICE MAGISTRATE, DWAINE T 788.1 DYSURIA 06/14/2013 NEIDA TALBOT MD 355.9 NEUROPATHY 06/14/2013 NEIDA TALBOT MD 788.1 DYSURIA 06/14/2013 355.9 NEUROPATHY 06/14/2013 788.1 DYSURIA 06/14/2013 THONG POLICE MAGISTRATE, DWAINE T 355.9 NEUROPATHY 06/14/2013 THONG POLICE MAGISTRATE, DWAINE T 788.1 DYSURIA 06/14/2013 THONG POLICE MAGISTRATE, DWAINE T 355.9 NEUROPATHY 06/14/2013 THONG POLICE MAGISTRATE, DWAINE T 788.1 DYSURIA 06/14/2013 THONG POLICE MAGISTRATE, DWAINE T 355.9 NEUROPATHY 06/14/2013 THONG POLICE MAGISTRATE, DWAINE T 788.1 DYSURIA 06/14/2013 THONG SAAVEDRAN, DWAINE T 355.9 NEUROPATHY 06/14/2013 THONG POLICE MAGISTRATE, DWAINE T 788.1 DYSURIA 06/14/2013 DWAINE BENITO APRN T 355.9 NEUROPATHY 06/14/2013 DWAINE BENITO APRN T 788.1 DYSURIA 06/14/2013 NEIDA TALBOT MD 355.9 NEUROPATHY 06/14/2013 NEIDA TALBOT MD 788.1 DYSURIA 06/14/2013 THONG SAAVEDRAN, DWAINE T 355.9 NEUROPATHY 06/14/2013 THONG HODGES, DWAINE T 788.1 DYSURIA 06/14/2013 DWAINE BENITO APRN T 355.9 NEUROPATHY 06/14/2013 THONG POLICE MAGISTRATEDWAINE Arredondo T 788.1 DYSURIA 06/14/2013 PRICE DO, GILBERTO K 355.9 NEUROPATHY 06/14/2013 PRICE DO, GILBERTO K 788.1 DYSURIA 06/14/2013 THONG SAAVEDRANDWAINE T 355.9 NEUROPATHY 06/14/2013 THONG POLICE MAGISTRATEDWAINE T 788.1 DYSURIA 06/14/2013 THONG POLICE MAGISTRATE, DWAINE T 355.9 NEUROPATHY 06/14/2013 THONG POLICE MAGISTRATE, DWAINE T 788.1 DYSURIA 06/14/2013 THONG POLICE MAGISTRATEDWAINE T 355.9 NEUROPATHY 06/14/2013 THONG POLICE MAGISTRATE, DWAINE T 788.1 DYSURIA 06/14/2013 THONG POLICE MAGISTRATEDWAINE Arredondo T 355.9 NEUROPATHY 06/14/2013 DWAINE BENITO APRN T 788.1 DYSURIA 06/14/2013 PRICE DO, GILBERTO K 355.9 NEUROPATHY 06/14/2013 PRICE DO, GILBERTO K 788.1 DYSURIA 06/14/2013 THONG POLICE MAGISTRATE, DWAINE T 355.9 NEUROPATHY 06/14/2013 THONG POLICE MAGISTRATE, DWAINE T 788.1 DYSURIA 06/14/2013 THONG POLICE MAGISTRATE, DWAINE T 355.9 NEUROPATHY 06/14/2013 THONG POLICE MAGISTRATE, DWAINE T 788.1 DYSURIA 06/14/2013 THONG POLICE MAGISTRATE, DWAINE T 355.9 NEUROPATHY 06/14/2013 THONG POLICE MAGISTRATEDWAINE T 788.1 DYSURIA 06/14/2013 THONG POLICE MAGISTRATEDWAINE T 355.9 NEUROPATHY 06/14/2013 THONG POLICE MAGISTRATE, DWAINE T 788.1 DYSURIA 06/14/2013 THONG POLICE MAGISTRATEDWAINE T 355.9 NEUROPATHY 06/14/2013 THONG POLICE MAGISTRATEDWAINE T 788.1 DYSURIA 06/14/2013 THONG POLICE MAGISTRATEDWAINE T 355.9 NEUROPATHY 06/14/2013 THOGN POLICE MAGISTRATEDWAINE T 788.1 DYSURIA 06/14/2013 THONG POLICE MAGISTRATEDWAINE T 355.9 NEUROPATHY 06/14/2013 THONG POLICE MAGISTRATEDWAINE T 788.1 DYSURIA 06/14/2013 THONG POLICE MAGISTRATEDWAINE T 355.9 NEUROPATHY 06/14/2013 THONG POLICE MAGISTRATEDWAINE T 788.1 DYSURIA 06/14/2013 THONG POLICE MAGISTRATEDWAINE T 355.9 NEUROPATHY 06/14/2013 THONG POLICE MAGISTRATEDWAINE T 788.1 DYSURIA 06/14/2013 THONG POLICE MAGISTRATEDWAINE T 355.9 NEUROPATHY 06/14/2013 THONG POLICE MAGISTRATEDWAINE T 788.1 DYSURIA 06/27/2013 DWAINE BENITO APRN T 847.0 SPRAIN/STRAIN NECK 06/27/2013 DWAINE BENITO APRN T 847.0 SPRAIN/STRAIN NECK 06/27/2013 DWAINE BENITO APRN T 847.0 SPRAIN/STRAIN NECK 06/27/2013 DWAINE BENITO APRN T 847.0 SPRAIN/STRAIN NECK 06/27/2013 DWAINE BENITO APRN T 847.0 SPRAIN/STRAIN NECK 06/27/2013 DWAINE BENTIO APRN T 847.0 SPRAIN/STRAIN NECK 06/27/2013 DWAINE [...] AND ABSCESS OF UNSPECIFIED SITES 11/09/2013 DWAINE BEINTO APRN 682.9 CELLULITIS AND ABSCESS OF UNSPECIFIED [...] AND ABSCESS OF UNSPECIFIED SITES 11/09/2013 THONG POLICE MAGISTRATE, DWAINE T 682.9 CELLULITIS AND ABSCESS OF UNSPECIFIED SITES 11/09/2013 THONG POLICE MAGISTRATEDWAINE T 682.9 CELLULITIS AND ABSCESS OF UNSPECIFIED [...] SAAVEDRAN, DWAINE T 564.00 CONSTIPATION 01/16/2014 THONG POLICE MAGISTRATE, DWAINE T 564.00 CONSTIPATION 01/16/2014 THONG POLICE MAGISTRATE, DWAINE T 564.00 CONSTIPATION 01/16/2014 THONG SAAVEDRAN, DWAINE T 564.00 CONSTIPATION 01/16/2014 PRICE DOERNESTOA K 564.00 CONSTIPATION 01/16/2014 THONG POLICE MAGISTRATE, DWAINE T 564.00 CONSTIPATION 01/16/2014 THONG POLICE MAGISTRATE, DWAINE T 564.00 CONSTIPATION 01/16/2014 THONG POLICE MAGISTRATE, DWAINE T 564.00 CONSTIPATION 01/16/2014 THOGN POLICE MAGISTRATE, DWAINE T 564.00 CONSTIPATION 01/16/2014 THONG POLICE MAGISTRATE, DWAINE T 564.00 CONSTIPATION 01/16/2014 THONG POLICE MAGISTRATE, DWAINE T 564.00 CONSTIPATION 01/16/2014 THONG POLICE MAGISTRATE, DWAINE T 564.00 CONSTIPATION 01/16/2014 THONG POLICE MAGISTRATE, DWAINE T 564.00 CONSTIPATION 01/16/2014 THONG POLICE MAGISTRATE, DWAINE T 564.00 CONSTIPATION 01/16/2014 THONG POLICE MAGISTRATE, DWAINE T 564.00 CONSTIPATION 02/25/2014 DWAINE BENITO APRN T 465.9 UPPER RESPIRATORY INFECTION 02/25/2014 DWAINE BENITO APRN T 465.9 UPPER RESPIRATORY INFECTION 02/25/2014 PRICE DO, GILBERTO K 465.9 UPPER RESPIRATORY INFECTION 02/25/2014 THONG SAAVEDRANDWAINE T 465.9 UPPER RESPIRATORY INFECTION 02/25/2014 DWAINE BENITO APRN T 465.9 UPPER RESPIRATORY INFECTION 02/25/2014 THONG POLICE MAGISTRATE, DWAINE T 465.9 UPPER RESPIRATORY INFECTION 02/25/2014 THONG POLICE MAGISTRATE, DWAINE T 465.9 UPPER RESPIRATORY INFECTION 02/25/2014 THONG POLICE MAGISTRATE, DWAINE T 465.9 UPPER RESPIRATORY INFECTION 02/25/2014 THONG POLICE MAGISTRATE, DWAINE T 465.9 UPPER RESPIRATORY INFECTION 02/25/2014 THONG POLICE MAGISTRATE, DWAINE T 465.9 UPPER RESPIRATORY INFECTION 02/25/2014 THONG POLICE MAGISTRATE, DWAINE T 465.9 UPPER RESPIRATORY INFECTION 02/25/2014 THONG POLICE MAGISTRATE, DWAINE T 465.9 UPPER RESPIRATORY INFECTION 02/25/2014 THONG POLICE MAGISTRATE, DWAINE T 465.9 UPPER RESPIRATORY INFECTION 02/27/2014 [...] APOLLO Castillo Ot 719.45 02/27/2014 DWAINE BENITO ENTERPRISE ACCOUNT EXECUTIVE Ot 707.05 02/27/2014 DWAINE BENITO ENTERPRISE ACCOUNT EXECUTIVE Ot 707.20 03/02/2014 GILBERTO PRICE DO K [...] 599.0 08/22/2014 Ot 709.8 08/22/2014 RAYMOND MORRISON, EY Robles Ot V76.12 08/22/2014 RYAN MORRISON, APOLLO [...] NEUROPATHY 07/19/2015 SHIRLEY KIRKPATRICK MD Ot 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 07/20/2015 [...] 01/30/2016 ALICIA ZHANG MDNT A Ot Z79.84 DETENTION (CURRENT) USE OF ORAL HYPOGLYC 01/30/2016 VICENTE MORRISON MAIKEL A Ot 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.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 01/31/2016 MAIKEL ZHANG MD [...] 01/31/2016 ALICIA ZHANG MDNT A Ot Z79.84 DETENTION (CURRENT) USE OF ORAL HYPOGLYC 01/31/2016 VICENTE MORRISON MAIKEL A Ot 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.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 02/05/2016 MAIKEL ZHANG MD [...] 02/05/2016 ALICIA ZHANG MDNT A Ot Z79.84 DETENTION (CURRENT) USE OF ORAL HYPOGLYC 02/05/2016 VICENTE MORRISON MAIKEL A Ot 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.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 02/07/2016 JOVAN CASON MD [...] CATH 04/26/2016 ALYSIA CASTRO MD Ot Z79.84 AUTOMOTIVE PORTER (CURRENT) USE OF ORAL HYPOGLYC 04/28/2016 ALYSIA [...] CATH 04/28/2016 ALYSIA CASTRO MD Ot Z79.84 DETENTION (CURRENT) USE OF ORAL HYPOGLYC 05/04/2016 JOVAN [...] CATHET 05/20/2016 HONG SMART MD, Ot Z79.84 AUTOMOTIVE PORTER (CURRENT) USE OF ORAL HYPOGLYC 05/20/2016 HONG SMART MD Ot Z91.19 PATIENT'S NONCOMPLIANCE W [facility] 09/21/2016 SHIRLEY KIRKPATRICK MD, Ot E11.9 TYPE 2 DIABETES MELLITUS WITHOUT COMPLIC 09/21/2016 SHIRLEY KIRKPATRICK MD, Ot F17.210 NICOTINE DEPENDENCE, CIGARETTES, UNCOMPL 09/21/2016 SHIRLEY KIRKPATRICK MD, Ot N39.0 URINARY TRACT INFECTION, SITE NOT SPECIF 09/21/2016 SHIRLEY KIRKPATRICK MD, Ot Z79.84 DETENTION (CURRENT) USE OF ORAL HYPOGLYC 09/21/2016 SHIRLEY KIRKPATRICK MD, Ot Z87.442 PERSONAL HISTORY OF URINARY CALCULI 09/25/2016 DWAINE BENITO ENTERPRISE ACCOUNT EXECUTIVE Ot N39.0 URINARY TRACT INFECTION, SITE NOT SPECIF 09/25/2016 DWAINE BENITO ENTERPRISE ACCOUNT EXECUTIVE Ot N39.0 URINARY TRACT INFECTION, SITE NOT SPECIF 09/25/2016 DWAINE BENITO ENTERPRISE ACCOUNT EXECUTIVE Ot N39.0 URINARY TRACT INFECTION, SITE NOT SPECIF 09/26/2016 DWAINE BENITO ENTERPRISE ACCOUNT EXECUTIVE Ot N39.0 URINARY TRACT INFECTION, SITE NOT SPECIF 09/27/2016 SHIRLEY KIRKPATRICK MD, Ot E11.9 TYPE 2 DIABETES MELLITUS WITHOUT COMPLIC 09/27/2016 SHIRLEY KIRKPATRICK MD, Ot F17.210 NICOTINE DEPENDENCE, CIGARETTES, UNCOMPL 09/27/2016 SHIRLEY KIRKPATRICK MD, Ot N39.0 URINARY TRACT INFECTION, SITE NOT SPECIF 09/27/2016 SHIRLEY KIRKPATRICK MD, Ot 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.84 AUTOMOTIVE PORTER (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) USE OF ORAL HYPOGLYC 09/27/2016 SHIRLEY KIRKPATRICK MD Ot Z87.442 PERSONAL HISTORY OF URINARY CALCULI 09/27/2016 DWAINE BENITO ENTERPRISE ACCOUNT EXECUTIVE Ot N39.0 URINARY TRACT INFECTION, SITE NOT SPECIF 09/27/2016 DWAINE BENITO ENTERPRISE ACCOUNT EXECUTIVE Ot N39.0 URINARY TRACT INFECTION, SITE NOT SPECIF 09/28/2016 DWAINE BENITO ENTERPRISE ACCOUNT EXECUTIVE Ot N39.0 URINARY TRACT INFECTION, SITE NOT SPECIF 09/28/2016 DWAINE BENITO ENTERPRISE ACCOUNT EXECUTIVE Ot N39.0 URINARY TRACT INFECTION, SITE NOT SPECIF 09/28/2016 THONGDWAINE ENTERPRISE ACCOUNT EXECUTIVE Ot N39.0 URINARY TRACT INFECTION, SITE NOT SPECIF 09/29/2016 THONGDWAINE ENTERPRISE ACCOUNT EXECUTIVE Ot N39.0 URINARY TRACT INFECTION, SITE NOT SPECIF 09/29/2016 THONGDWAINE ENTERPRISE ACCOUNT EXECUTIVE Ot N39.0 URINARY TRACT INFECTION, SITE NOT SPECIF 09/30/2016 DWAINE BENITO ENTERPRISE ACCOUNT EXECUTIVE Ot N39.0 URINARY TRACT INFECTION, SITE NOT [...] SMO 10/18/2016 BEST MCKEE MD Ot Z79.84 AUTOMOTIVE PORTER (CURRENT) USE OF ORAL HYPOGLYC 10/18/2016 BEST [...] PALPITATIONS 10/20/2016 BEST MCKEE MD, Ot Z79.84 DETENTION (CURRENT) USE OF ORAL HYPOGLYC 10/20/2016 BEST MCKEE MD Ot Z87.01 PERSONAL HISTORY OF PNEUMONIA (RECURRENT 10/20/2016 BEST MCKEE MD, Ot Z87.442 PERSONAL HISTORY OF URINARY CALCULI 10/20/2016 BEST MCKEE MD Ot Z96.0 PRESENCE OF UROGENITAL IMPLANTS 10/20/2016 BEST MCKEE MD, Ot Z98.1 ARTHRODESIS STATUS 11/25/2016 DWAINE BENITO Ot N39.0 URINARY TRACT INFECTION, SITE NOT SPECIF 12/23/2016 DWAINE BENITO ENTERPRISE ACCOUNT EXECUTIVE Ot N39.0 URINARY TRACT INFECTION, SITE NOT [...] PAIN 12/24/2016 ALYSIA CASTRO MD, Ot Z79.84 DETENTION (CURRENT) USE OF ORAL HYPOGLYC 12/24/2016 ALYSIA [...] PAIN 12/25/2016 ALYSIA CASTRO MD Ot Z79.84 DETENTION (CURRENT) USE OF ORAL HYPOGLYC 12/25/2016 ALYSIA [...] MD Ot F41.9 ANXIETY DISORDER, UNSPECIFIED 12/29/2016 ALSYIA CASTRO MD Ot K59.00 CONSTIPATION, UNSPECIFIED 12/29/2016 ALYSIA CASTRO MD Ot N39.0 URINARY TRACT INFECTION, SITE NOT SPECIF 12/29/2016 ALYSIA CASTRO MD Ot R10.9 UNSPECIFIED ABDOMINAL PAIN 12/29/2016 ALYSIA CASTRO MD Ot Z79.84 AUTOMOTIVE PORTER (CURRENT) USE OF ORAL HYPOGLYC 12/29/2016 ALYSIA [...] SPECIF 01/12/2017 DINAH CONTEH DO Ot Z79.84 DETENTION (CURRENT) USE OF ORAL HYPOGLYC 01/12/2017 DINAH [...] 01/14/2017 WERO GUILLAUME DINAH Alba Ot Z79.84 DETENTION (CURRENT) USE OF ORAL HYPOGLYC 01/14/2017 WERO [...] Procedures Code Description [place] [address] UA W/ CULTURE IF INDICATED 03/01/2012 49692 CULTURE URINE 03/03/2012 02006 UA W/ CULTURE IF INDICATED 03/31/2012 86686 CULTURE URINE 04/02/2012 55023 UA W/ CULTURE IF INDICATED 04/15/2012 24492 CULTURE URINE 04/17/2012 51715 INSERT BLADDER CATHETER 06/04/2012 53835 INSERT TEMP BLADDER CATH 06/17/2012 99704 INSERT BLADDER CATHETER 07/02/2012 99032 INSERT BLADDER CATHETER 07/16/2012 19183 UA LONG DIP 07/26/2012 02911 CULTURE URINE 07/28/2012 08199 INSERT TEMP BLADDER CATH 07/30/2012 79526 CMP 08/02/2012 08131 LIPID PANEL 08/02/2012 73788 VITAMIN D 25-HYDROXY (D2,D3 , TOTAL) 08/02/2012 69528 A1C (IN-HOUSE) 08/02/2012 62156 TSH 08/02/2012 08805 CBC 08/02/2012 46355 MAMMOGRAM, SCREENING 11/30/2012 49001 UA LONG DIP 11/30/2012 11657 CULTURE URINE 12/01/2012 64522 CULTURE URINE 12/02/2012 29499 CULTURE URINE 02/18/2013 31808 UA W/ CULTURE IF INDICATED 04/20/2013 66538 CULTURE URINE 04/22/2013 57307 CULTURE WOUND (AEROBIC) 05/23/2013 19388 A1C (IN-HOUSE) 06/14/2013 30848 UA W/ CULTURE IF INDICATED 06/20/2013 66631 CULTURE URINE 06/20/2013 96354 INSERT TEMP BLADDER CATH 06/22/2013 74728 UA LONG DIP 07/01/2013 76878 CULTURE URINE 07/02/2013 32605 INSERT TEMP BLADDER CATH 07/06/2013 41063 INSERT TEMP BLADDER CATH 07/20/2013 00522 CULTURE WOUND (AEROBIC) 07/25/2013 88533 CULTURE URINE 08/04/2013 69571 CULTURE WOUND (AEROBIC) 11/09/[address] PELVIS W/O CONTRAST 11/10/2013 24818 CULTURE WOUND (AEROBIC) 12/09/2013 22140 UA W/MICROSCOPY 12/16/2013 05123 UA W/MICROSCOPY 12/16/2013 85958 CULTURE URINE 12/20/2013 88464 CULTURE URINE 12/22/2013 82601 UA W/ CULTURE IF INDICATED 01/04/2014 11527 CULTURE URINE 01/04/2014 04715 CULTURE URINE 05/03/2014 11084 CULTURE URINE 05/05/2014 Results Test Result Range [...] culture - 01/30/16 16:15 Bacterial urine culture [id number] NRG COLONY COUNT >100,000/ML NRG FTX;REPORTABLE SENSITIVITY [...] culture - 02/08/16 15:55 Bacterial urine culture [id number] NRG COLONY COUNT 10,000/ML - 100,000/ML NRG [...] culture - 05/20/16 02:35 Bacterial urine culture [id number] NRG COLONY COUNT >100,000/ML NRG FTX;REPORTABLE SENSITIVITY [...] culture - 09/21/16 20:10 Bacterial urine culture [id number] NRG COLONY COUNT 10,000/ML - 100,000/ML NRG [...] culture - 10/17/16 23:20 Bacterial urine culture [id number] NRG COLONY COUNT >100,000/ML NRG FTX;REPORTABLE SENSITIVITY [...] culture - 12/23/16 22:16 Bacterial urine culture [id number] NRG COLONY COUNT >100,000/ML NRG FTX;REPORTABLE SENSITIVITY [...] culture - 01/12/17 18:05 Bacterial urine culture [id number] NRG COLONY COUNT >100,000/ML NRG FTX;REPORTABLE SENSITIVITY [...] culture - 04/17/17 20:16 Bacterial urine culture [id number] NRG COLONY COUNT 10,000/ML - 100,000/ML NRG [...] susceptibility test by minimum inhibitory concentration - [facility] Whole blood basic metabolic panel [...] NR Blood erythrocyte morphology finding identification NORMAL [facility] Automated blood complete blood count [...] ANTIGEN, NEG FOR A ANTIGEN, BY IA [facility] Complete blood count (CBC) with [...] Status Pt. Type Provider Facility Loc./Unit Complaint [id number] 07/26/2014 16:57:00 07/26/2014 23:59:59 [facility] Outpatient DWAINE BENITO APRN [id number] 07/19/2014 17:04:00 07/19/2014 23:59:59 [facility] Out[facility] DWAINE BENITO APRN [id number] 07/05/2014 16:59:00 07/05/2014 23:59:59 [facility] Outpatient DWAINE BENITO APRN [id number] 06/21/2014 16:55:00 06/21/2014 23:59:59 [facility] Outpatient DWAINE BENITO APRN [id number] 05/24/2014 16:53:00 05/24/2014 23:59:59 [facility] Outpatient DWAINE BENITO APRN [id number] 05/03/2014 18:27:00 05/03/2014 23:59:59 [facility] Outpatient DWAINE BENITO APRN [id number] 04/26/2014 17:01:00 04/26/2014 23:59:59 [facility] Outpatient DWAINE BENITO APRN [id number] 04/12/2014 15:47:00 04/12/2014 23:59:59 [facility] Outpatient DWAINE BENITO APRN [id number] 03/29/2014 17:08:00 03/29/2014 23:59:59 [facility] Outpatient DWAINE BENITO APRN [id number] 03/24/2014 15:18:00 03/24/2014 23:59:59 [facility] Outpatient DWAINE BENITO APRN [id number] 03/15/2014 16:56:00 03/15/2014 23:59:59 CLS Outpatient GILBERTO PRICE DO [id number] 03/03/2014 15:57:00 03/03/2014 23:59:59 [facility] Outpatient DWAINE BENITO APRN [id number] 02/25/2014 14:23:00 02/25/2014 23:59:59 [facility] Outpatient DWAINE BENITO APRN [id number] 02/15/2014 17:12:00 02/15/2014 23:59:59 [facility] Outpatient DWAINE BENITO APRN [id number] 02/01/2014 16:57:00 02/01/2014 23:59:59 [facility] Outpatient DWAINE BENITO APRN [id number] 01/18/2014 16:59:00 01/18/2014 23:59:59 [facility] Outpatient DEE GUILLAUMEGILBERTO [id number] 01/16/2014 14:37:00 01/16/2014 23:59:59 [facility] Outpatient DWAINE BENITO APRN [id number] 01/04/2014 16:56:00 01/04/2014 23:59:59 [facility] Outpatient DWAINE BENITO APRN [id number] 01/04/2014 16:56:00 01/04/2014 23:59:59 CLS Outpatient NEIDA TALBOT MD [id number] 12/22/2013 14:42:00 12/22/2013 23:59:59 [facility] Outpatient DWAINE BENITO APRN [id number] 12/21/2013 16:52:00 12/21/2013 23:59:59 [facility] Outpatient DWAINE BENITO APRN [id number] 12/16/2013 15:18:00 12/16/2013 23:59:59 [facility] Outpatient DWAINE BENITO APRN [id number] 12/07/2013 16:35:00 12/07/2013 23:59:59 [facility] Outpatient DWAINE BENITO APRN [id number] 12/02/2013 15:16:00 12/02/2013 23:59:59 [facility] Outpatient DWAINE BENITO APRN [id number] 11/09/2013 16:52:00 11/09/2013 23:59:59 CLS Outpatient NEIDA TALBOT MD [id number] 11/04/2013 14:43:00 11/04/2013 23:59:59 [facility] Outpatient DWAINE BENITO APRN [id number] 10/26/2013 17:00:00 10/26/2013 23:59:59 [facility] Outpatient DWAINE BENITO APRN [id number] 10/12/2013 17:02:00 10/12/2013 23:59:59 [facility] Outpatient DWAINE BENITO APRN [id number] 09/28/2013 16:56:00 09/28/2013 23:59:59 C[facility] Outpatient DWAINE BENITO APRN [id number] 09/14/2013 16:34:00 09/14/2013 23:59:59 C[facility] Outpatient DWAINE BENITO APRN [id number] 08/31/2013 16:23:00 08/31/2013 23:59:59 C[facility] Outpatient DWAINE BENITO APRN [id number] 08/16/2013 11:31:00 08/16/2013 23:59:59 C[facility] Outpatient DWAINE BENITO APRN [id number] 08/03/2013 16:56:00 08/03/2013 23:59:59 CLS Outpatient NEIDA TALBOT MD [id number] 07/25/2013 15:43:00 07/25/2013 23:59:59 [facility] Outpatient DWAINE BENITO APRN [id number] 07/20/2013 16:34:00 07/20/2013 23:59:59 [facility] Outpatient DWAINE BENITO APRN [id number] 07/12/2013 16:40:00 07/12/2013 23:59:59 C[facility] Outpatient DWAINE BENITO APRN [id number] 07/06/2013 16:45:00 07/06/2013 23:59:59 [facility] Outpatient DWAINE BENITO APRN [id number] 06/28/2013 11:26:00 06/28/2013 23:59:59 [facility] Outpatient DWAINE BENITO APRN [id number] 06/27/2013 14:41:00 06/27/2013 23:59:59 CLS Outpatient DWAINE BENITO APRN [id number] 06/22/2013 16:40:00 06/22/2013 23:59:59 CLS Outpatient DWAINE BENITO APRN [id number] 06/22/2013 16:40:00 06/22/2013 23:59:59 CLS Outpatient DWAINE BENITO APRN [id number] 06/20/2013 09:07:00 06/20/2013 23:59:59 CLS Outpatient DWAINE BENITO APRN [id number] 06/14/2013 15:48:00 06/14/2013 23:59:59 CLS Outpatient YE ANDRADE MD [id number] 06/08/2013 16:29:00 06/08/2013 23:59:59 CLS Outpatient DWAINE BENITO APRN [id number] 05/25/2013 16:54:00 05/25/2013 23:59:59 CLS Outpatient DWAINE BENITO APRN [id number] 05/23/2013 14:07:00 05/23/2013 23:59:59 CLS Outpatient DWAINE BENITO APRN [id number] 05/11/2013 17:01:00 05/11/2013 23:59:59 CLS Outpatient DWAINE BENITO APRN [id number] 04/27/2013 17:06:00 04/27/2013 23:59:59 CLS Outpatient DWAINE BENITO APRN [id number] 04/20/2013 08:39:00 04/20/2013 23:59:59 CLS Outpatient DWAINE BENITO APRN [id number] 04/12/2013 11:34:00 04/12/2013 23:59:59 CLS Outpatient DWAINE BENITO APRN [id number] 03/30/2013 16:43:00 03/30/2013 23:59:59 CLS Outpatient DWAINE BENITO APRN [id number] 03/16/2013 16:31:00 03/16/2013 23:59:59 CLS Outpatient NEIDA TALBOT MD [id number] 03/11/2013 09:19:00 03/11/2013 23:59:59 CLS Outpatient DWAINE BENITO APRN [id number] 03/02/2013 16:47:00 03/02/2013 23:59:59 CLS Outpatient NEIDA TALBOT MD [id number] 02/16/2013 16:40:00 02/16/2013 23:59:59 CLS Outpatient DWAINE BENITO APRN [id number] 02/02/2013 17:02:00 02/02/2013 23:59:59 CLS Outpatient NEIDA TALBOT MD [id number] 01/19/2013 16:46:00 01/19/2013 23:59:59 CLS Outpatient DWAINE BENITO APRN [id number] 01/05/2013 16:36:00 01/05/2013 23:59:59 CLS Outpatient DWAINE BENITO APRN [id number] 07/14/2012 16:52:00 07/14/2012 23:59:59 CLS Outpatient DWAINE BENITO APRN [id number] 06/30/2012 16:49:00 06/30/2012 23:59:59 CLS Outpatient [id number] 06/16/2012 17:03:00 06/16/2012 23:59:59 CLS Outpatient [id number] 06/02/2012 16:24:00 06/02/2012 23:59:59 CLS Outpatient DWAINE BENITO APRN [id number] 05/19/2012 14:49:00 05/19/2012 23:59:59 CLS Outpatient [id number] 05/05/2012 16:58:00 05/05/2012 23:59:59 CLS Outpatient [id number] 04/21/2012 17:06:00 04/21/2012 23:59:59 CLS Outpatient DWAINE BENITO APRN [id number] 04/15/2012 08:42:00 04/15/2012 23:59:59 CLS Outpatient GILBERTO PRICE DO [id number] 04/07/2012 17:05:00 04/07/2012 23:59:59 CLS Outpatient [id number] 03/31/2012 16:28:00 03/31/2012 23:59:59 CLS Outpatient NEIDA TALBOT MD [id number] 03/24/2012 17:13:00 03/24/2012 23:59:59 CLS Outpatient DWAINE BENITO APRN [id number] 02/11/2012 16:58:00 02/11/2012 23:59:59 CLS Outpatient THONG POLICE MAGISTRATEDWAINE [id number] 11/23/2013 16:48:00 Document Registration [id number] 12/15/2012 16:50:00 Document Registration [id number] 12/01/2012 16:44:00 Document Registration [id number] 10/06/2012 16:58:00 Document Registration [id number] 09/30/2012 16:25:00 Document Registration [id number] 09/22/2012 16:17:00 Document Registration [id number] 09/13/2012 17:44:00 Document Registration [id number] 09/08/2012 16:49:00 Document Registration [id number] 08/11/2012 14:50:00 Document Registration [id number] 07/28/2012 14:23:00 Document Registration [id number] 07/26/2012 08:56:00 Document Registration [id number] 07/23/2012 15:29:00 Document Registration [id number] 04/20/2017 16:15:00 04/22/2017 16:19:00 DIS Inpatient JOVAN CASON MD Via [facility] 4TH CONSTIPATION [id number] 04/16/2017 13:39:00 04/16/2017 23:59:59 CLS Outpatient DWAINE BENITO Via [facility] RAD K56.99 INTESTINAL OBSTRUCTION [id number] 01/12/2017 16:14:00 01/12/2017 18:53:00 DIS Emergency DINAH CONTEH DO K Via [facility] ER UTI/RASH/DIARRHEA [id number] 12/24/2016 08:06:00 12/24/2016 23:59:59 CLS Preadmit SANDOVAL BUSTAMANTE MD Via [facility] RAD HEMATURIA [id number] 12/24/2016 00:22:00 12/24/2016 23:59:59 CLS Preadmit DWAINE BENITO Via [facility] SDC RECURRENT RESISTANT UTI [id number] 12/23/2016 21:42:00 12/24/2016 02:32:00 DIS Emergency ALYSIA CASTRO MD Via [facility] ER RT SIDED ABDOMINAL PAIN [id number] 09/30/2016 15:53:00 12/23/2016 00:01:00 DIS Outpatient DWAINE BENITO CRISTINA Via [facility] RECURRENT RESISTANT UTI [id number] 10/17/2016 21:54:00 10/18/2016 01:50:00 DIS Emergency BEST MCKEE MD Via [facility] ER CHEST PAINS [id number] 09/21/2016 18:50:00 09/21/2016 21:35:00 DIS Emergency SHIRLEY KIRKPATRICK MD Via [facility] ER UTI SYMPTOMS [id number] 05/16/2016 19:10:00 05/20/2016 13:17:00 DIS Inpatient BING MORRISON, HONG Alba Via [facility] 4TH CONSTIPATION [id number] 05/16/2016 18:21:00 05/16/2016 18:21:00 CAN Preadmit SHIRLEY KIRKPATRICK MD Via [facility] ER CONSTIPATION [id number] 05/14/2016 15:44:00 05/14/2016 18:51:00 DIS Emergency SHIRLEY KIRKPATRICK MD Via [facility] ER CONSTIPATION [id number] 05/05/2016 00:10:00 05/05/2016 23:59:59 CLS Preadmit JOVAN CASON MD Via [facility] UTI [id number] 02/08/2016 15:15:00 05/04/2016 00:01:00 DIS Outpatient JOVAN CASON MD Via [facility] UTI [id number] 04/26/2016 19:13:00 04/26/2016 22:17:00 DIS Emergency ALYSIA CASTRO MD Via [facility] ER CATHETER ISSUES, NOT FLOWING [id number] 01/30/2016 15:32:00 01/30/2016 17:32:00 DIS Emergency MAIKEL ZHANG MD Via [facility] ER UTI [id number] 07/31/2015 17:03:00 07/31/2015 18:35:00 DIS Emergency ADALID HANLEY DO Via [facility] ER [id number] 07/19/2015 01:38:00 07/19/2015 03:06:00 DIS Emergency KAYA MORRISON, SHIRLEY Hussein Via [facility] ER [id number] 05/29/2015 17:47:00 05/29/2015 19:17:00 DIS Emergency WERODINAH Martinez DO Via [facility] ER [id number] 08/22/2014 13:25:00 08/22/2014 15:11:00 DIS Emergency MATTHEW MORRISON, ALYSIA Rushing Via [facility] ER [id number] 03/01/2014 20:13:00 03/02/2014 19:45:00 DIS Inpatient PRICE GILBERTO GUILLAUME Via [facility] CSD [id number] 02/27/2014 11:35:00 02/27/2014 16:27:00 DIS Emergency WERODINAH Martinez DO Via [facility] ER [id number] 11/22/2013 16:34:00 11/22/2013 23:59:59 CLS Outpatient DWAINE BENITO Via [facility] RAD [id number] 10/20/2013 16:05:00 10/20/2013 23:59:59 CLS Outpatient APOLLO DAVIS MD Via [facility] RAD [id number] 08/28/2013 14:46:00 08/28/2013 15:40:00 DIS Emergency HONG SMART MD Via [facility] ER [id number] 12/10/2012 14:49:00 12/10/2012 23:59:59 CLS Outpatient YE ANDRADE MD Via [facility] RAD [id number] 04/23/2017 10:41:00 Document Registration [id number] 04/22/2017 22:37:00 Document Registration [id number] 08/22/2014 14:35:00 Document Registration [id number] 03/07/2012 00:00:00 Document Registration [id number] 02/04/2012 00:00:00 Document Registration [id number] 12/29/2011 14:30:00 Document Registration [id number] 12/13/2011 11:08:00 Document Registration [id number] 12/05/2011 14:44:00 Document Registration [id number] 09/13/2011 13:30:00 Document Registration [id number] 09/03/2011 20:35:00 Document Registration [id number] 06/18/2011 20:18:00 Document Registration [id number] 04/01/2011 13:51:00 Document Registration [id number] 12/24/2010 20:32:00 Document Registration [id number] 12/10/2010 20:25:00 Document Registration [id number] 11/25/2010 21:35:00 Document Registration [id number] 11/12/2010 21:05:00 Document Registration [id number] 10/23/2010 19:59:00 Document Registration [id number] 10/07/2010 00:22:00 Document Registration [id number] 09/30/2010 20:46:00 Document Registration [id number] 09/27/2010 17:03:00 Document Registration [id number] 09/16/2010 20:43:00 Document Registration [id number] 08/09/2010 13:21:00 Document Registration [id number] 06/03/2010 19:21:00 Document Registration [id number] 05/17/2010 15:29:00 Document Registration [id number] 05/06/2010 19:00:00 Document Registration [id number] 02/04/2010 17:15:00 Document Registration [id number] 01/08/2010 15:39:00 Document Registration [id number] 12/17/2009 01:35:00 Document Registration [id number] 11/29/2009 13:35:00 Document Registration [id number] 11/09/2009 14:00:00 Document Registration [id number] 11/08/2009 09:17:00 Document Registration [id number] 14:48:00 Document Registration [id number] 08/10/2009 15:30:00 Document Registration [id number] 06/26/2009 14:24:00 Document Registration [id number] 06/07/2009 15:19:00 Document Registration [id number] 05/07/2009 18:00:00 Document Registration [id number] 03/06/2009 14:46:00 Document Registration [id number] 02/08/2009 17:00:00 Document Registration [id number] 01/19/2009 16:38:00 Document Registration [id number] 01/16/2009 13:11:00 Document Registration [id number] 01/13/2009 14:36:00 Document Registration [id number] 11/07/2008 15:18:00 Document Registration [id number] 10/31/2008 13:51:00 Document Registration [id number] 10/16/2008 11:32:00 Document Registration
[2017-04-24] VITALS: BP 119/55
[2017-04-24] MEDS: RT-ALBUTEROL/IPRATROPIUM 3 ML (DUONEB) VIAL INH SCH ×6 (02:45→22:58)
[2017-04-24] MEDS: oxyCODONE/APAP 10/325MG (PERCOCET 10) TABLET PO PRN ×4 (03:26→23:38)
[2017-04-24 03:52] VITALS: BP 122/60
[2017-04-24 06:38] LABS: BASOPHILS % (AUTO) 0 % (0-10); EOSINOPHILS % (AUTO) 0 % (0-10); HEMATOCRIT 35 % (35-52); HEMOGLOBIN 11.6 G/DL (11.5-16.0); LYMPHOCYTES # (AUTO) 1.3 X 10^3 (1.0-4.0); LYMPHOCYTES % (AUTO) 37 % (12-44); MEAN CORPUSCULAR HEMOGLOBIN 31 PG (25-34); MEAN CORPUSCULAR HGB CONC 33 G/DL (32-36); MEAN CORPUSCULAR VOLUME 95 FL (80-99); MEAN PLATELET VOLUME 10.1 FL (7.4-10.4); MONOCYTES # (AUTO) 0.8 X 10^3 (0.0-1.0); MONOCYTES % (AUTO) 24 % (0-12); NEUTROPHILS # (AUTO) 1.3 X 10^3 (1.8-7.8); NEUTROPHILS % (AUTO) 39 % (42-75); PLATELET COUNT 155 10^3/uL (130-400); RED BLOOD COUNT 3.71 10^6/uL (4.35-5.85); RED CELL DISTRIBUTION WIDTH 14.4 % (10.0-14.5); WHITE BLOOD COUNT 3.4 10^3/uL (4.3-11.0)
[2017-04-24 07:02] LABS: ALANINE AMINOTRANSFERASE 52 U/L (0-55); ALBUMIN 3.3 GM/DL (3.2-4.5); ALKALINE PHOSPHATASE 55 U/L (40-136); BILIRUBIN,TOTAL 0.2 MG/DL (0.1-1.0); BUN/CREATININE RATIO 32; CALCIUM 8.5 MG/DL (8.5-10.1); CARBON DIOXIDE 28 MMOL/L (21-32); CHLORIDE 101 MMOL/L (98-107); CREATININE SERUM 0.37 MG/DL (0.60-1.30); GFR ESTIMATED > 60; GLUCOSE 85 MG/DL (70-105); POTASSIUM 3.6 MMOL/L (3.6-5.0); SODIUM 139 MMOL/L (135-145); TOTAL PROTEIN 6.1 GM/DL (6.4-8.2)
[2017-04-24] MEDS: MULTIVIT W/MINERALS TAB (THERAGRAN M) PO SCH (07:26)
[2017-04-24] MEDS: predniSONE 20 MG TAB PO SCH (07:26)
[2017-04-24] MEDS: metFORMIN 500 MG (GLUCOPHAGE) TAB PO SCH ×2 (07:26→17:19)
[2017-04-24 08:00] VITALS: BP 109/56
[2017-04-24] MEDS: FLUTICASONE NASAL SPRAY (FLONASE) 16 GM BTL NS SCH (08:26)
[2017-04-24] MEDS: CEPHALEXIN 250 MG (KEFLEX) CAP PO SCH ×4 (08:26→20:43)
[2017-04-24] MEDS: OSELTAMIVIR 75 MG (TAMIFLU) BOX OF 10 PO SCH ×2 (08:26→20:43)
[2017-04-24] MEDS: ALPRAZolam 0.5 MG (XANAX) TAB PO PRN (08:27)
[2017-04-24] MEDS ORDERED: BIOTIN 2000 MCG PO SCH (09:00)
[2017-04-24 12:00] VITALS: BP 114/56
--- NOTE | 2017-04-24 12:02 | History & Physicial (CHS) ---
HPI History of Present Illness: 56yo woman with Ygegrfz-Kvtkr-Zftnj Disease recently discharged 48h ago after being in hospital for impacted stool returned due to worsening fevers and respiratory distress. Patient had exhibited fever to 101-102 prior to discharge. Flu swab was ordered but not obtained. Patient had fluid on CXR which resolved with lasix and she was afebrile in the 24h prior to discharge. Patient's fever returned after discharge and she returned to ER. Was found to have Influenza B. Patient did not have respiratory distress at the time and was discharged home. She returned after she developed shortness of breath while at home in bed. Was found to have O2 sats in sanchez 80s and required oxygen. She is admitted for treatment of the respiratory distress. Source: patient Exam Limitations: no limitations Date seen by provider: Apr 24, 2017 Time Seen by Provider: 09:00 Attending Physician Nilo Choe MD PCP Eloise Byers DO Consult Date of Admission Apr 23, 2017 at 11:50 Home Medications Home Medications Reviewed patient Home Medication Reconciliation Form Allergies Coded Allergies: Sulfa (Sulfonamide Antibiotics) (Unverified Allergy, Mild, 07/29/08) Iodinated Contrast- Oral and IV Dye (Verified Allergy, Unknown, 07/30/08) latex (Verified Allergy, Unknown, 07/30/08) povidone-iodine (Unverified Allergy, Unknown, 08/28/13) soap (Unverified Allergy, Unknown, 08/28/13) Uncoded Allergies: CONTRAST DYE (Allergy, Mild, 07/29/08) EES (Allergy, Mild, 07/29/08) HNW-Olxmux-Jbxkrs Hx Patient Social History Alcohol Use: Occasionally Uses Recreational Drug Use: No Smoking Status: Former Smoker Type Used: Cigarettes 2nd Hand Smoke Exposure: Yes Recent Foreign Travel: No Contact w/other who traveled: No Recent Hopitalizations: No Recent Infectious Disease Expo: No Physical Abuse Screen: No Sexual Abuse: No Immunizations Up To Date Tetanus Booster (TDap): Unknown Date of Pneumonia Vaccine: Feb 28, 2011 Date of Influenza Vaccine: Mar 02, 2016 Past Medical History Past Medical History 1. Ohdxsyv-Tqojq-Qwkjf 2. Indwelling Urinary Catheter- with changes at the clinic 3. Tobaccoism 4. History of Kidney Stone 5. Frequent Urinary Tract Infections 6. Wheelchair bound 7. Diabetes Mellitus 8. Chronic Back Pain 9. 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 Colitis Past Surgical History 1. Cholecystectomy 2. Genital Wound Debridement 2008 3. Kidney Stone basket with stent 2008 [facility] 4. Lithotripsy- 2008 with Jose Juan 5. Rt. Leg Surgery 1966 6. Muscle Bx 1968 7. Lt and Rt. Ankle Closed Reduction, Rt. Humerus Rt. Femur 99 8. Left Femur Fx, Right Tibia Fibula, 1981 9. Hwang Rods 1975 Family Medical History Family History: FH: breast cancer 19 MOTHER, Onset:Unknown FH: pneumonia 19 FATHER, Onset:60 years & older Gout 19 FATHER, Onset:Unknown Hypertension 19 FATHER, Onset:Unknown Review of Systems ([facility]) Constitutional: no symptoms reported All Other Systems Reviewed Negative Unless Noted: Yes Reviewed Test Results Reviewed Test Results Lab Laboratory Tests Test 04/23/17 10:15 04/24/17 06:05 Range/Units White Blood Count 6.2 3.4 L 4.3-11.0 10^3/uL Red Blood Count 4.27 L 3.71 L 4.35-5.85 10^6/uL Hemoglobin 13.4 11.6 11.5-16.0 G/DL Hematocrit 40 35 35-52 % Mean Corpuscular Volume 94 95 80-99 FL Mean Corpuscular Hemoglobin 31 31 25-34 PG Mean Corpuscular Hemoglobin Concent 33 33 32-36 G/DL Red Cell Distribution Width 14.7 H 14.4 10.0-14.5 % Platelet Count 158 155 130-400 10^3/uL Mean Platelet Volume 10.1 10.1 7.4-10.4 FL Neutrophils (%) (Auto) 63 39 L 42-75 % Lymphocytes (%) (Auto) 23 37 12-44 % Monocytes (%) (Auto) 13 H 24 H 0-12 % Eosinophils (%) (Auto) 1 0 0-10 % Basophils (%) (Auto) 0 0 0-10 % Neutrophils # (Auto) 3.9 1.3 L 1.8-7.8 X 10^3 Lymphocytes # (Auto) 1.5 1.3 1.0-4.0 X 10^3 Monocytes # (Auto) 0.8 0.8 0.0-1.0 X 10^3 Eosinophils # (Auto) 0.0 0.0 0.0-0.3 10^3/uL Basophils # (Auto) 0.0 0.0 0.0-0.1 10^3/uL Prothrombin Time 12.2 12.2-14.7 SEC INR Comment 0.9 0.8-1.4 Activated Partial Thromboplast Time 22 L 24-35 SEC Sodium Level 137 139 135-145 MMOL/L Potassium Level 3.5 L 3.6 3.6-5.0 MMOL/L Chloride Level 96 L 101 98-107 MMOL/L Carbon Dioxide Level 26 28 21-32 MMOL/L Anion Gap 15 H 10 5-14 MMOL/L Blood Urea Nitrogen 9 12 7-18 MG/DL Creatinine 0.43 L 0.37 L 0.60-1.30 MG/DL Estimat Glomerular Filtration Rate > 60 > 60 BUN/Creatinine Ratio 21 32 Glucose Level 88 85 70-105 MG/DL Lactic Acid Level 0.84 0.50-2.00 MMOL/L Calcium Level 9.1 8.5 8.5-10.1 MG/DL Total Bilirubin 0.3 0.2 0.1-1.0 MG/DL Aspartate Amino Transf (AST/SGOT) 96 H 66 H 5-34 U/L Alanine Aminotransferase (ALT/SGPT) 62 H 52 0-55 U/L Alkaline Phosphatase 62 55 40-136 U/L Total Protein 7.3 6.1 L 6.4-8.2 GM/DL Albumin 3.8 3.3 3.2-4.5 GM/DL Physical Exam-([facility]) Physical Exam Vital Signs VS - Last 72 Hours, by Label 04/23/17 04/23/17 04/23/17 04/23/17 09:46 09:50 10:19 10:39 Temp 100.5 100.5 Pulse 98 Resp 24 B/P (MAP) 117/75 (89) Pulse Ox 92 92 94 O2 Delivery Room Air Nasal Cannula O2 Flow Rate 3.00 2.00 04/23/17 04/23/17 04/23/17 04/23/17 10:40 11:30 11:31 14:11 Temp 100.5 100.5 Pulse 92 78 Resp 18 Pulse Ox 93 94 98 O2 Delivery Nasal Cannula Vapotherm O2 Flow Rate 2.00 20.00 FiO2 50 50 04/23/17 04/23/17 04/23/17 1/11/18 16:00 19:00 19:22 19:49 Temp 99.8 Pulse 79 79 Resp 18 B/P (MAP) 112/52 (72) Pulse Ox 97 92 O2 Delivery Vapotherm Vapotherm O2 Flow Rate 20.00 20.00 FiO2 50 50 04/23/17 04/23/17 04/23/17 04/24/17 19:51 20:40 22:42 00:00 Temp 99.3 98.9 Pulse 78 80 Resp 18 16 B/P (MAP) 120/58 (78) 119/55 (76) Pulse Ox 91 96 96 95 O2 Delivery Vapotherm Vapotherm Vapotherm O2 Flow Rate 20.00 20.00 40.00 20.00 FiO2 50 50 04/24/17 04/24/17 04/24/17 04/24/17 01:00 02:48 03:52 07:00 Temp 99.4 Pulse 81 74 62 Resp 19 B/P (MAP) 122/60 (80) Pulse Ox 96 93 O2 Delivery Vapotherm Vapotherm O2 Flow Rate 20.00 30.00 20.00 FiO2 40 04/24/17 04/24/17 04/24/17 04/24/17 07:06 08:00 08:00 10:53 Temp 97.9 Pulse 63 Resp 20 B/P (MAP) 109/56 (73) Pulse Ox 96 97 96 92 O2 Delivery Vapotherm Vapotherm Vapotherm Vapotherm O2 Flow Rate 20.00 30.00 20.00 20.00 20.00 FiO2 30 30 30 04/24/17 04/24/17 04/24/17 04/24/17 12:00 14:36 16:00 19:00 Temp 97.9 97.0 Pulse 84 84 66 Resp 22 22 B/P (MAP) 114/56 (75) 114/56 (75) Pulse Ox 92 96 92 O2 Delivery Vapotherm Vapotherm Vapotherm O2 Flow Rate 30.00 10.00 30.00 20.00 20.00 FiO2 30 04/24/17 04/24/17 04/24/17 04/24/17 19:31 20:00 20:00 23:00 Temp 98.0 Pulse 69 Resp 20 B/P (MAP) 109/53 (71) Pulse Ox 98 92 96 O2 Delivery Vapotherm Vapotherm Vapotherm Vapotherm O2 Flow Rate 10.00 30.00 10.00 10.00 20.00 FiO2 30 30 30 04/25/17 04/25/17 04/25/17 00:00 01:00 02:13 Temp 98.3 Pulse 83 74 Resp 18 B/P (MAP) 128/60 (82) Pulse Ox 93 98 O2 Delivery Vapotherm Vapotherm O2 Flow Rate 30.00 10.00 10.00 FiO2 30 Capillary Refill : Less Than 3 Seconds General Appearance: WD/WN, no apparent distress, obese, other (chronically ill) HEENT: PERRL/EOMI, normal ENT inspection, pharynx normal Neck: non-tender, full range of motion, supple, normal inspection Respiratory: chest non-tender, lungs clear, normal breath sounds, no respiratory distress, no accessory muscle use Cardiovascular: regular rate, rhythm, no edema, no gallop, no JVD, no murmur Gastrointestinal: normal bowel sounds, non tender, soft, no organomegaly, no pulsatile mass Extremities: normal range of motion, non-tender, normal inspection, no pedal edema, no calf tenderness, normal capillary refill, other (deformities c/w CMT) Neurologic/Psychiatric: marketing and development coordinator II-XII nml as tested, no motor/sensory deficits, alert, normal mood/affect, oriented x 3 Skin: normal color, warm/dry Clinical Quality Measures DVT/VTE Risk/Contraindication: Risk Factor Score Per Nursin RFS Level Per Nursing on Admit: 3=High Copy Copies To 1: SILAS BENITO APRN Assessment/Plan Assessment/Plan Admission Dx see below Plan INFLUENZA B RESPIRATORY DISTRESS ADM: Patient currently on Vapotherm and satting in the low 90s. Expect her O2 need will continue through the weekend. Have also started Tamiflu (which she received in ER). Anticipate that the O2 need is going to continue through the weekend d/t her underlying comorbidities. Have started MAT protocol as well. I did start oral steroids as I did not see a benefit of high dose. I did not start antibiotics owing to the clear CXR. PRESSURE ULCER OF RIGHT ISCHIUM ADM: Chronic, needs to be turned frquently DMT2, controlled ADM: ADA diet, home metformin DVT PROPH: NILO Antonio MD Apr 24, 2017 12:02 pm
[2017-04-24] MEDS: NS IV 1000 ML 1,000 ML IV SCH (13:41)
[2017-04-24 16:00] VITALS: BP 114/56
[2017-04-24 20:00] VITALS: BP 109/53
[2017-04-24] MEDS: LACTOBACILLUS Acidoph/Bulgar (LACTINEX/FLORANEX) TAB PO SCH (20:43)
[2017-04-25] VITALS (7 sets, daily range): BP systolic 106–130; BP diastolic 53–89
[2017-04-25] MEDS: RT-ALBUTEROL/IPRATROPIUM 3 ML (DUONEB) VIAL INH SCH ×5 (02:11→19:02)
[2017-04-25] MEDS: MULTIVIT W/MINERALS TAB (THERAGRAN M) PO SCH (06:06)
[2017-04-25] MEDS: predniSONE 20 MG TAB PO SCH (06:06)
[2017-04-25] MEDS: metFORMIN 500 MG (GLUCOPHAGE) TAB PO SCH ×2 (06:06→17:25)
[2017-04-25] MEDS: FLUTICASONE NASAL SPRAY (FLONASE) 16 GM BTL NS SCH (08:39)
[2017-04-25] MEDS: OSELTAMIVIR 75 MG (TAMIFLU) BOX OF 10 PO SCH ×2 (08:39→20:05)
[2017-04-25] MEDS: ALPRAZolam 0.5 MG (XANAX) TAB PO PRN ×2 (08:40→20:30)
[2017-04-25] MEDS: CEPHALEXIN 250 MG (KEFLEX) CAP PO SCH ×4 (08:40→20:06)
[2017-04-25] MEDS: oxyCODONE/APAP 10/325MG (PERCOCET 10) TABLET PO PRN ×2 (08:45→20:30)
[2017-04-25] MEDS: ENOXAPARIN 40 MG/0.4 ML (LOVENOX) SYR SC SCH (08:52)
--- NOTE | 2017-04-25 11:21 | Progress Note (SOAP) ---
Subjective Subjective/Events-last exam Patient states that she is feeling ok this AM. Complaining of pain from nasal canula around ears. Last BM 3 days ago. Pain is well controlled Review of Systems Date Seen by Provider: Apr 25, 2017 Time Seen by Provider: 09:45 General: No Chills, Malaise Pulmonary: Dyspnea, Cough Cardiovascular: No: Chest Pain, Palpitations Gastrointestinal: Constipation, No: Nausea, Vomiting, Abdominal Pain Objective Exam Last Set of Vital Signs Vital Signs Date Time Temp Pulse Resp B/P (MAP) Pulse Ox O2 Delivery O2 Flow Rate FiO2 04/25/17 10:53 91 Vapotherm 10.00 30 04/25/17 08:00 97.7 63 22 110/53 (72) Capillary Refill : Less Than 3 Seconds I&O Intake and Output 04/25/17 00:00 Intake Total 1870 ml Output Total 1675 ml Balance 195 ml Intake Oral 1870 ml Output Urine Total 1675 ml General: Alert, Oriented X3, Cooperative, No Acute Distress Lungs: Other (Diffuse crackles, normal work of breathing, no wheezing) Heart: Regular Rate, No Murmurs Abdomen: Normal Bowel Sounds, Soft, No Tenderness, No Hepatosplenomegaly, No Masses Psych/Mental Status: Mental Status NL, Mood NL Results/Procedures Lab Microbiology 04/23/17 Blood Culture - Preliminary, Resulted No growth Assessment/Plan Assessment/Plan Plan INFLUENZA B RESPIRATORY DISTRESS ADM: Patient currently on Vapotherm and satting in the low 90s. Expect her O2 need will continue through the weekend. Have also started Tamiflu (which she received in ER). Anticipate that the O2 need is going to continue through the weekend d/t her underlying comorbidities. Have started MAT protocol as well. I did start oral steroids as I did not see a benefit of high dose. I did not start antibiotics owing to the clear CXR. 04/25: Continued need for oxygen, Repeat CXR in AM, Ordered IS and encouraged patient to have wheelchair brought to hosp PRESSURE ULCER OF RIGHT ISCHIUM ADM: Chronic, needs to be turned frquently DMT2, controlled ADM: ADA diet, home metformin DVT PROPH: Lovenox Dipso: Continue admission for oxygen needs Clinical Quality Measures DVT/VTE Risk/Contraindication: Risk Factor Score Per Nursin RFS Level Per Nursing on Admit: 3=High JENNIFER HILARIO MD Apr 25, 2017 11:21
--- NOTE | 2017-04-25 13:30 | Physical Therapy Evaluation ---
PT Evaluation-General Medical Diagnosis Admission Date Apr 23, 2017 at 11:50 Medical Diagnosis: Influenza B, respiratory distress Onset Date: Apr 23, 2017 Therapy Diagnosis Therapy Diagnosis: weakness Height/Weight Height (Feet): 5 Height (Inches): 1.00 Weight (Pounds): 135 Weight (Ounces): 0.0 Precautions Precautions/Isolations: Droplet Isolation, Fall Prevention, Pressure Ulcer Weight Bear Status Right Lower Extremity: Right Non Weight Bearing Left Lower Extremity: Left Non Weight Bearing Referral Physician: Mireya Reason for Referral: Strengthening Medical History Pertinent Medical History: DM Additional Medical History Hsonpwb-Ridlz-Iieeb Disease, former smoker, indwelling urinary catheter, chronic back pain, depression, 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 Returned to ER due to worsening fever and respiratory distress. Reviewed History: Yes Social History Home: Single Level Current Living Status: Prior/Core FIM Prior Level of Function Functional [place] Measure 0=Not Assessed/NA 4=Minimal Assistance 1=Total Assistance 5=Supervision or Setup 2=Maximal Assistance 6=Modified [place] 3=Moderate Assistance 7=Complete [place] Bed Mobility: 1 Transfers (B,C,W/C) (FIM): 1 Gait: 0 Wheelchair Mobility: 6 Spoke at length with Pt regarding PLOF. Pt reports she used to utilize SB for transfers but once she developed ischial wound she has been dependent. Pt reports that she has caregivers to assist with dressing and renato-care. Dependent assist x 1 person for supine<->sit TFR. Pt reports that she sits at EOB for meals and dressing "with a wedge and pillows propped on all sides of me ". Pt reports that they utilize draw sheet and two people to "lift me up and over to my chair". Pt utilizes power chair for all mobility OOB. PT Evaluation-Current Subjective Pt reports "groggy today". No pain rating provided but c/o nose hurting due to O2 tubing; nurse notified of c/o. After discussing PLOF, Pt reported, "I don't really know what PT can do for me. Maybe a little arm strengthening but I can't really think of much else". Pt apprehensive about attempting to sit EOB on pressure relief bed. Declined to attempt this date due to fatigue. Pt/Family Goals Return home with caregivers. Objective Patient Orientation: Person, Place, Time, Situation Problem Solving: Good Attachments: Oxygen, [place] Catheter ROM/Strength ROM Upper Extremities Grossly WFL ROM Lower Extremities Not tested Strength Upper Extremities (B) shoulders grossly 3/5, (B) elbow flexion grossly 3+/5, (B) elbow extension grossly 3/5 Strength Lower Extremities Not tested Integumentary/Posture Integumentary See nurses' notes Bladder Incontinence: Chow[place]ury Cath Sensory Vision: Wears Glasses Hearing: Functional Transfers Functional [place] Measure 0=Not Assessed/NA 4=Minimal Assistance 1=Total Assistance 5=Supervision or Setup 2=Maximal Assistance 6=Modified [place] 3=Moderate Assistance 7=Complete [place] Pt dependent at PLOF; declined to move to EOB this date Gait Mode of Locomotion: Wheelchair Anticipated Mode of Locomotion: Wheelchair Wheelchair Training Pt's powerchair not present Balance Special Test Comments Pt declined to attempt EOB this date due to fatigue. Pt reports that at PLOF she sits EOB with "pillows on all sides to prop me up" Treatment Eval. In bed with O2 in situ, needs met. Assessment/Needs Pt is a 56 y.o. female who is dependent for functional mobility at PLOF. Pt may benefit from short term skilled PT for general UE strengthening and activity at EOB to maintain functional strength to maintain LOF to assist caregivers at home. Rehab Potential: Fair PT Detention Goals Mid Level Provider Goals PT Mid Level Provider Goals Time Frame: May 09, 2017 Pt will sit EOB x 10' with CGA-min A x 1 to allow her to resume PLOF with caregivers. PT Plan Problem List Problem List: Activity Tolerance, Functional Strength, Safety, Balance Treatment/Plan Treatment Plan: Continue Plan of Care Treatment Plan: Education, Functional Activity Jen, Functional Strength, Safety Treatment Duration: May 09, 2017 Frequency: 5 times per week Estimated Hrs Per Day: .25 hour per day Patient and/or Family Agrees t: Yes Safety Risks/Education Safety Risk Comments: integumentay integrity Teaching Recipient: Patient Teaching Methods: Discussion Response to Teaching: Verbalize Understanding PT POC Discharge Recommendations Plan Return home with caregivers Therapy D/C Recommendations: Other, See Comments Time/GCodes Time In: 1231 Time Out: 1252 Total Billed Treatment Time: 21 Total Billed Treatment 1, [facility] (high complexity due to multiple co-morbidities, dependent level of care at [facility]) G Codes Necessary: KAMERON Gordon DPT Apr 25, 2017 13:30
[2017-04-25] MEDS: NS IV 1000 ML 1,000 ML IV SCH (13:51)
[2017-04-25] MEDS: LACTOBACILLUS Acidoph/Bulgar (LACTINEX/FLORANEX) TAB PO SCH (20:06)
[2017-04-26] VITALS: BP 112/54
[2017-04-26] MEDS ORDERED: RT-ALBUTEROL/IPRATROPIUM 3 ML (DUONEB) VIAL ONE (02:52)
[2017-04-26] MEDS ORDERED: RT-ALBUTEROL/IPRATROPIUM 3 ML (DUONEB) VIAL INH PRN ×2 (03:00→03:15)
[2017-04-26] MEDS: metFORMIN 500 MG (GLUCOPHAGE) TAB PO SCH ×2 (06:07→16:39)
[2017-04-26] MEDS: predniSONE 20 MG TAB PO SCH (06:07)
[2017-04-26] MEDS: MULTIVIT W/MINERALS TAB (THERAGRAN M) PO SCH (06:07)
[2017-04-26 06:47] LABS: BASOPHILS % (AUTO) 0 % (0-10); EOSINOPHILS % (AUTO) 0 % (0-10); HEMATOCRIT 34 % (35-52); HEMOGLOBIN 10.9 G/DL (11.5-16.0); LYMPHOCYTES # (AUTO) 3.5 X 10^3 (1.0-4.0); LYMPHOCYTES % (AUTO) 57 % (12-44); MEAN CORPUSCULAR HEMOGLOBIN 31 PG (25-34); MEAN CORPUSCULAR HGB CONC 32 G/DL (32-36); MEAN CORPUSCULAR VOLUME 97 FL (80-99); MONOCYTES # (AUTO) 0.8 X 10^3 (0.0-1.0); MONOCYTES % (AUTO) 13 % (0-12); NEUTROPHILS # (AUTO) 1.9 X 10^3 (1.8-7.8); NEUTROPHILS % (AUTO) 30 % (42-75); PLATELET COUNT 143 10^3/uL (130-400); RED BLOOD COUNT 3.52 10^6/uL (4.35-5.85); RED CELL DISTRIBUTION WIDTH 14.8 % (10.0-14.5); WHITE BLOOD COUNT 6.3 10^3/uL (4.3-11.0)
[2017-04-26] MEDS: RT-ALBUTEROL/IPRATROPIUM 3 ML (DUONEB) VIAL INH SCH ×4 (06:53→19:22)
[2017-04-26 07:07] LABS: ALANINE AMINOTRANSFERASE 31 U/L (0-55); ALBUMIN 3.1 GM/DL (3.2-4.5); ALKALINE PHOSPHATASE 45 U/L (40-136); BILIRUBIN,TOTAL 0.2 MG/DL (0.1-1.0); BUN/CREATININE RATIO 30; CALCIUM 8.4 MG/DL (8.5-10.1); CARBON DIOXIDE 24 MMOL/L (21-32); CHLORIDE 107 MMOL/L (98-107); CREATININE SERUM 0.33 MG/DL (0.60-1.30); GFR ESTIMATED > 60; GLUCOSE 73 MG/DL (70-105); POTASSIUM 3.5 MMOL/L (3.6-5.0); SODIUM 141 MMOL/L (135-145); TOTAL PROTEIN 5.7 GM/DL (6.4-8.2)
[2017-04-26 08:00] VITALS: BP 105/59
--- NOTE | 2017-04-26 08:20 | Diagnostic Imaging Report ---
INDICATION: Hypoxia, shortness of breath COMPARISON: 04/23/17 FINDINGS: Single view of the chest demonstrates new and/or increasing atelectasis, effusion and infiltrate in the left base. The right lung is clear. The heart is prominent but stable. No pneumothorax. Spinal rods are present. IMPRESSION: New and/or increasing left basilar atelectasis, effusion and infiltrate. Dictated by: Dictated on workstation # [id number]
[2017-04-26] MEDS: OSELTAMIVIR 75 MG (TAMIFLU) BOX OF 10 PO SCH ×2 (08:26→20:31)
[2017-04-26] MEDS: ENOXAPARIN 40 MG/0.4 ML (LOVENOX) SYR SC SCH (08:26)
[2017-04-26] MEDS: FLUTICASONE NASAL SPRAY (FLONASE) 16 GM BTL NS SCH (08:26)
[2017-04-26] MEDS: CEPHALEXIN 250 MG (KEFLEX) CAP PO SCH ×4 (08:26→20:30)
[2017-04-26] MEDS: ALPRAZolam 0.5 MG (XANAX) TAB PO PRN (09:29)
[2017-04-26] MEDS: oxyCODONE/APAP 10/325MG (PERCOCET 10) TABLET PO PRN ×2 (09:30→20:31)
--- NOTE | 2017-04-26 11:56 | Progress Note (SOAP) ---
MAGUI OLEARY MEDICAL STDENT 04/26/17 1155: Subjective Subjective/Events-last exam 56 yo female states that she is feeling better today. Pt states she feels better when she sits up. She states that she becomes short of breath when she is lying down; she had to sit up in the middle of the night due to this. Pt states she has been taking a lot of naps throughout the day. Pt states her dog is comforting to her. Review of Systems Date Seen by Provider: Apr 26, 2017 Time Seen by Provider: 11:15 Pulmonary: Dyspnea, Cough Gastrointestinal: Constipation Objective Exam Last Set of Vital Signs Vital Signs Date Time Temp Pulse Resp B/P (MAP) Pulse Ox O2 Delivery O2 Flow Rate FiO2 04/26/17 10:18 90 Nasal Cannula 4.00 04/26/17 08:00 97.2 69 18 105/59 (74) 04/25/17 10:53 30 Capillary Refill : Less Than 3 Seconds I&O Intake and Output 04/26/17 00:00 Intake Total 2030 ml Output Total 1550 ml Balance 480 ml Intake Oral 1310 ml IV Total 720 ml Output Urine Total 1550 ml General: Alert, Oriented X3, Cooperative, No Acute Distress HEENT: Atraumatic Lungs: Other (Wheezing present in left lobes) Heart: Regular Rate, Normal S1, Normal S2, No Murmurs Results/Procedures Lab Laboratory Tests 04/26/17 06:05: White Blood Count 6.3, Red Blood Count 3.52L, Hemoglobin 10.9L, Hematocrit 34L, Mean Corpuscular Volume 97, Mean Corpuscular Hemoglobin 31, Mean Corpuscular Hemoglobin Concent 32, Red Cell Distribution Width 14.8H, Platelet Count 143, Mean Platelet Volume 10.0, Neutrophils (%) (Auto) 30L, Lymphocytes (%) (Auto) 57H, Monocytes (%) (Auto) 13H, Eosinophils (%) (Auto) 0, Basophils (%) (Auto) 0 , Neutrophils # (Auto) 1.9, Lymphocytes # (Auto) 3.5, Monocytes # (Auto) 0.8, Eosinophils # (Auto) 0.0, Basophils # (Auto) 0.0, Sodium Level 141, Potassium Level 3.5L, Chloride Level 107, Carbon Dioxide Level 24, Anion Gap 10, Blood Urea Nitrogen 10, Creatinine 0.33L, Estimat Glomerular Filtration Rate > 60, BUN /Creatinine Ratio 30, Glucose Level 73, Calcium Level 8.4L, Total Bilirubin 0.2 , Aspartate Amino Transf (AST/SGOT) 35H, Alanine Aminotransferase (ALT/SGPT) 31 , Alkaline Phosphatase 45, Total Protein 5.7L, Albumin 3.1L Microbiology 04/23/17 Blood Culture - Preliminary, Resulted No growth Radiology CXR 04/26/17: Left lower lobe base atelectasis, effusion, and infiltrate. Right lung clear. Assessment/Plan Assessment/Plan Admission Dx Influenza Plan INFLUENZA B RESPIRATORY DISTRESS ADM: Patient currently on Vapotherm and satting in the low 90s. Expect her O2 need will continue through the weekend. Have also started Tamiflu (which she received in ER). Anticipate that the O2 need is going to continue through the weekend d/t her underlying comorbidities. Have started MAT protocol as well. I did start oral steroids as I did not see a benefit of high dose. I did not start antibiotics owing to the clear CXR. 04/25: Continued need for oxygen, Repeat CXR in AM, Ordered IS and encouraged patient to have wheelchair brought to hosp 04/26: Continued need for oxygen; improving: pt current O2 sat 94% on 4L of O2. Continue to wean O2. Vapotherm discontinued. CXR results show LLL base atelectasis, effusion and infiltrate. Continue to encourage IS and activity in wheelchair. Continue Tamiflu (04/23-04/28). PRESSURE ULCER OF RIGHT ISCHIUM ADM: Chronic, needs to be turned frequently DMT2, controlled ADM: ADA diet, home metformin DVT PROPH: Lovenox Dipso: Continue admission for oxygen needs Clinical Quality Measures DVT/VTE Risk/Contraindication: Risk Factor Score Per Nursin RFS Level Per Nursing on Admit: 3=High JENNIFER HILARIO MD 04/27/17 1645: Subjective Subjective/Events-last exam Still has not had BM for the last 3 days. States that she does not feel any urge to stool at this time. Tolerating PO diet Review of Systems General: No Chills Genitourinary: Other (Catheter in place) Assessment/Plan Assessment/Plan Plan Patient seen and examined with Magui Oleary MS4, agree with above A/P MAGUI OLEARY STDENT Apr 26, 2017 11:55 JENNIFER HILARIO MD Apr 27, 2017 16:45
[2017-04-26 12:00] VITALS: BP 109/59
[2017-04-26] MEDS: NS IV 1000 ML 1,000 ML IV SCH (13:30)
[2017-04-26 16:35] VITALS: BP_SYST 134; BP_SYST 161; BP_DIAS 76; BP_DIAS 89
[2017-04-26] MEDS: LACTOBACILLUS Acidoph/Bulgar (LACTINEX/FLORANEX) TAB PO SCH (20:30)
[2017-04-26] MEDS: POLYETHYLENE GLYCOL 17 GM (MIRALAX) PACK PO PRN (21:14)
[2017-04-27 00:11] VITALS: BP 119/59
[2017-04-27 06:33] LABS: BASOPHILS % (AUTO) 0 % (0-10); EOSINOPHILS % (AUTO) 0 % (0-10); HEMATOCRIT 34 % (35-52); HEMOGLOBIN 11.1 G/DL (11.5-16.0); LYMPHOCYTES % (AUTO) 65 % (12-44); MEAN CORPUSCULAR HEMOGLOBIN 32 PG (25-34); MEAN CORPUSCULAR HGB CONC 33 G/DL (32-36); MEAN CORPUSCULAR VOLUME 97 FL (80-99); MEAN PLATELET VOLUME 9.8 FL (7.4-10.4); MONOCYTES # (AUTO) 0.7 X 10^3 (0.0-1.0); MONOCYTES % (AUTO) 11 % (0-12); NEUTROPHILS # (AUTO) 1.5 X 10^3 (1.8-7.8); NEUTROPHILS % (AUTO) 24 % (42-75); PLATELET COUNT 161 10^3/uL (130-400); RED CELL DISTRIBUTION WIDTH 14.9 % (10.0-14.5); WHITE BLOOD COUNT 6.2 10^3/uL (4.3-11.0)
[2017-04-27] MEDS: metFORMIN 500 MG (GLUCOPHAGE) TAB PO SCH ×2 (06:42→17:23)
[2017-04-27] MEDS: MULTIVIT W/MINERALS TAB (THERAGRAN M) PO SCH (06:42)
[2017-04-27] MEDS: predniSONE 20 MG TAB PO SCH (06:42)
[2017-04-27 06:53] LABS: ALANINE AMINOTRANSFERASE 30 U/L (0-55); ALBUMIN 3.3 GM/DL (3.2-4.5); ALKALINE PHOSPHATASE 44 U/L (40-136); BILIRUBIN,TOTAL 0.2 MG/DL (0.1-1.0); BUN/CREATININE RATIO 29; CALCIUM 8.5 MG/DL (8.5-10.1); CARBON DIOXIDE 25 MMOL/L (21-32); CHLORIDE 108 MMOL/L (98-107); CREATININE SERUM 0.34 MG/DL (0.60-1.30); GFR ESTIMATED > 60; GLUCOSE 71 MG/DL (70-105); POTASSIUM 4.3 MMOL/L (3.6-5.0); SODIUM 143 MMOL/L (135-145)
[2017-04-27] MEDS: RT-ALBUTEROL/IPRATROPIUM 3 ML (DUONEB) VIAL INH SCH ×4 (07:34→20:02)
[2017-04-27 08:00] VITALS: BP 172/74
[2017-04-27] MEDS ORDERED: ONDANSETRON 4 MG/2 ML (SDV) Z0FRAN IVP ONE (09:15)
[2017-04-27] MEDS: CEPHALEXIN 250 MG (KEFLEX) CAP PO SCH ×4 (09:20→20:44)
[2017-04-27] MEDS: ENOXAPARIN 40 MG/0.4 ML (LOVENOX) SYR SC SCH (09:20)
[2017-04-27] MEDS: OSELTAMIVIR 75 MG (TAMIFLU) BOX OF 10 PO SCH ×2 (09:20→20:44)
[2017-04-27] MEDS: FLUTICASONE NASAL SPRAY (FLONASE) 16 GM BTL NS SCH (09:21)
--- NOTE | 2017-04-27 09:54 | Physical Therapy Progress Note ---
Therapy Progress Note Patient caregiver declined PT due to patient is resting comfortably and does not want to be awakened. Patient's dog is present and barking/growling at PT. PT will attempt later today. 1 ref SHELLY POLANCO PT Apr 27, 2017 09:54
[2017-04-27 10:00] VITALS: BP 153/81
--- NOTE | 2017-04-27 11:30 | Physical Therapy Progress Note ---
Therapy Progress Note Patient declined second attempt for PT. Caregiver present. Will attempt in a.m. 1 ref SHELLY POLANCO PT Apr 27, 2017 11:29
--- NOTE | 2017-04-27 11:44 | Progress Note (SOAP) ---
Subjective Subjective/Events-last exam Patient not feeling well this AM. States that after she got her steroid this AM she got nauseous. Denies shortness of breath or chest pain. Tolerating diet but does not have much of any appetite. No BM x4days. Review of Systems Date Seen by Provider: Apr 27, 2017 Time Seen by Provider: 10:45 Pulmonary: No Dyspnea, Cough Cardiovascular: No: Chest Pain, Palpitations Gastrointestinal: Nausea, Constipation, No: Vomiting, Abdominal Pain, Diarrhea Objective Exam Last Set of Vital Signs Vital Signs Date Time Temp Pulse Resp B/P (MAP) Pulse Ox O2 Delivery O2 Flow Rate FiO2 04/27/17 08:00 96.9 70 18 172/74 (106) 92 Nasal Cannula 3.00 04/25/17 10:53 30 Capillary Refill : Less Than 3 Seconds I&O Intake and Output 04/27/17 00:00 Intake Total 1810 ml Output Total 1950 ml Balance -140 ml Intake Oral 1090 ml IV Total 720 ml Output Urine Total 1950 ml General: Alert, Oriented X3, Cooperative, No Acute Distress Lungs: Other (basilar wheezing) Heart: Regular Rate, No Murmurs Extremities: No Edema, No Tenderness/Swelling Results/Procedures Lab Laboratory Tests 04/27/17 06:04: White Blood Count 6.2, Red Blood Count 3.50L, Hemoglobin 11.1L, Hematocrit 34L, Mean Corpuscular Volume 97, Mean Corpuscular Hemoglobin 32, Mean Corpuscular Hemoglobin Concent 33, Red Cell Distribution Width 14.9H, Platelet Count 161, Mean Platelet Volume 9.8, Neutrophils (%) (Auto) 24L, Lymphocytes (%) (Auto) 65H , Monocytes (%) (Auto) 11, Eosinophils (%) (Auto) 0, Basophils (%) (Auto) 0, Neutrophils # (Auto) 1.5L, Lymphocytes # (Auto) 4.0, Monocytes # (Auto) 0.7, Eosinophils # (Auto) 0.0, Basophils # (Auto) 0.0, Sodium Level 143, Potassium Level 4.3, Chloride Level 108H, Carbon Dioxide Level 25, Anion Gap 10, Blood Urea Nitrogen 10, Creatinine 0.34L, Estimat Glomerular Filtration Rate > 60, BUN /Creatinine Ratio 29, Glucose Level 71, Calcium Level 8.5, Total Bilirubin 0.2, Aspartate Amino Transf (AST/SGOT) 32, Alanine Aminotransferase (ALT/SGPT) 30, Alkaline Phosphatase 44, Total Protein 6.0L, Albumin 3.3 04/27/17 10:19: Glucometer 100 Microbiology 04/23/17 Blood Culture - Preliminary, Resulted No growth Radiology CXR 04/26/17: Left lower lobe base atelectasis, effusion, and infiltrate. Right lung clear. Assessment/Plan Assessment/Plan Plan INFLUENZA B RESPIRATORY DISTRESS ADM: Patient currently on Vapotherm and satting in the low 90s. Expect her O2 need will continue through the weekend. Have also started Tamiflu (which she received in ER). Anticipate that the O2 need is going to continue through the weekend d/t her underlying comorbidities. Have started MAT protocol as well. I did start oral steroids as I did not see a benefit of high dose. I did not start antibiotics owing to the clear CXR. 04/25: Continued need for oxygen, Repeat CXR in AM, Ordered IS and encouraged patient to have wheelchair brought to hosp 04/26: Continued need for oxygen; improving: pt current O2 sat 94% on 4L of O2. Continue to wean O2. Vapotherm discontinued. CXR results show LLL base atelectasis, effusion and infiltrate. Continue to encourage IS and activity in wheelchair. Continue Tamiflu (04/23-04/28). 04/27: Increase activity, Patient on 4L today, decreases PO steroid to 20 mg daily PRESSURE ULCER OF RIGHT ISCHIUM ADM: Chronic, needs to be turned frequently DMT2, controlled ADM: ADA diet, home metformin DVT PROPH: Lovenox Dipso: Continue admission for oxygen needs Clinical Quality Measures DVT/VTE Risk/Contraindication: Risk Factor Score Per Nursin RFS Level Per Nursing on Admit: 3=High JENNIFER HILARIO MD Apr 27, 2017 11:44
[2017-04-27] MEDS: oxyCODONE/APAP 10/325MG (PERCOCET 10) TABLET PO PRN ×2 (12:52→17:23)
[2017-04-27] MEDS: NS IV 1000 ML 1,000 ML IV SCH ×2 (12:52→20:44)
[2017-04-27] MEDS: ALPRAZolam 0.5 MG (XANAX) TAB PO PRN (14:20)
[2017-04-27 16:04] VITALS: BP 121/56
[2017-04-27 18:58] VITALS: BP 133/60
[2017-04-27] MEDS: LACTOBACILLUS Acidoph/Bulgar (LACTINEX/FLORANEX) TAB PO SCH (20:44)
[2017-04-28] VITALS: BP 138/72
[2017-04-28 04:00] VITALS: BP 125/68
[2017-04-28 06:38] LABS: BASOPHILS % (AUTO) 0 % (0-10); EOSINOPHILS % (AUTO) 1 % (0-10); HEMATOCRIT 35 % (35-52); HEMOGLOBIN 11.1 G/DL (11.5-16.0); LYMPHOCYTES # (AUTO) 4.7 X 10^3 (1.0-4.0); LYMPHOCYTES % (AUTO) 58 % (12-44); MEAN CORPUSCULAR HEMOGLOBIN 31 PG (25-34); MEAN CORPUSCULAR HGB CONC 32 G/DL (32-36); MEAN CORPUSCULAR VOLUME 98 FL (80-99); MONOCYTES # (AUTO) 0.9 X 10^3 (0.0-1.0); MONOCYTES % (AUTO) 11 % (0-12); NEUTROPHILS # (AUTO) 2.5 X 10^3 (1.8-7.8); NEUTROPHILS % (AUTO) 31 % (42-75); PLATELET COUNT 193 10^3/uL (130-400); RED BLOOD COUNT 3.58 10^6/uL (4.35-5.85); RED CELL DISTRIBUTION WIDTH 14.8 % (10.0-14.5); WHITE BLOOD COUNT 8.1 10^3/uL (4.3-11.0)
[2017-04-28] MEDS: RT-ALBUTEROL/IPRATROPIUM 3 ML (DUONEB) VIAL INH SCH ×5 (06:48→22:33)
[2017-04-28 06:59] LABS: BUN/CREATININE RATIO 40; CALCIUM 8.9 MG/DL (8.5-10.1); CARBON DIOXIDE 27 MMOL/L (21-32); CHLORIDE 105 MMOL/L (98-107); CREATININE SERUM 0.35 MG/DL (0.60-1.30); GFR ESTIMATED > 60; GLUCOSE 74 MG/DL (70-105); POTASSIUM 4.2 MMOL/L (3.6-5.0); SODIUM 143 MMOL/L (135-145)
[2017-04-28] MEDS ORDERED: predniSONE 20 MG TAB PO SCH (07:00)
[2017-04-28 08:00] VITALS: BP 120/56
--- NOTE | 2017-04-28 08:55 | Physical Therapy Daily Note ---
PT Daily Note-Current Subjective Patient agrees to ROM exercises. No c/o. Pain Numeric Pain Scale: 0-No Pain Location: No Pain Reported Mental Status Patient Orientation: Normal For Age Attachments: Oxygen, [place]ury Catheter, IV Transfers Functional [place] Measure 0=Not Assessed/NA 4=Minimal Assistance 1=Total Assistance 5=Supervision or Setup 2=Maximal Assistance 6=Modified [place] 3=Moderate Assistance 7=Complete IndependenceIRFPAI Quality Coding Scale 6 Independent with activity with or without an assistive device 5 Patient requires set up or clean up by helper. Patient completes activity by themselves 4 Supervision or touching assist (CGA). [place] provide cues , steadying assist 3 The helper provides less than half the effort to complete the activity 2 The helper provides more than half the effort to complete the activity 1 Dependent. The helper does all the effort to complete an activity 7 Patient refused to complete or attempt activity 9 The patient did not perform the activity before the current illness or injury 88 Not attempted due to Medical conditions or safety concerns Weight Bearing Right Lower Extremity: Right Non Weight Bearing Left Lower Extremity: Left Non Weight Bearing Exercises Supine Ex: Heel Slides, Straight leg raise, Hip abd/add Supine Reps: 30 (bilaterally AAROM-PROM) Assessment Patient's right LE elevated with pillow to clear right foot for relief. Patient declined other repositioning. PT Dry Paste Supervisor Goals Dry Paste Supervisor Goals PT Jail Goals Time Frame: May 09, 2017 PT Plan Treatment/Plan Treatment Plan: Continue Plan of Care Treatment Plan: Education, Functional Activity Jen, Functional Strength, Safety Treatment Duration: May 09, 2017 Frequency: 5 times per week Estimated Hrs Per Day: .25 hour per day Patient and/or Family Agrees t: Yes Time/GCodes Time In: 825 Time Out: 835 Total Billed Treatment Time: 10 Total Billed Treatment 1 visit EX 10 min SHELLY POLANCO PT Apr 28, 2017 08:55
[2017-04-28] MEDS: POLYETHYLENE GLYCOL 17 GM (MIRALAX) PACK PO PRN ×2 (09:00→20:07)
[2017-04-28] MEDS: oxyCODONE/APAP 10/325MG (PERCOCET 10) TABLET PO PRN ×2 (09:26→20:08)
[2017-04-28] MEDS: metFORMIN 500 MG (GLUCOPHAGE) TAB PO SCH ×2 (09:26→17:38)
[2017-04-28] MEDS: CEPHALEXIN 250 MG (KEFLEX) CAP PO SCH ×2 (09:27→13:37)
[2017-04-28] MEDS: MULTIVIT W/MINERALS TAB (THERAGRAN M) PO SCH (09:27)
[2017-04-28] MEDS: OSELTAMIVIR 75 MG (TAMIFLU) BOX OF 10 PO SCH ×2 (09:28→11:09)
[2017-04-28] MEDS: FLUTICASONE NASAL SPRAY (FLONASE) 16 GM BTL NS SCH (09:28)
[2017-04-28] MEDS: predniSONE 20 MG TAB PO SCH (09:28)
[2017-04-28] MEDS: ENOXAPARIN 40 MG/0.4 ML (LOVENOX) SYR SC SCH (09:28)
[2017-04-28] MEDS: ALPRAZolam 0.5 MG (XANAX) TAB PO PRN ×2 (11:10→23:03)
[2017-04-28 16:00] VITALS: BP 118/58
[2017-04-28 20:00] VITALS: BP 127/60
[2017-04-28] MEDS: LACTOBACILLUS Acidoph/Bulgar (LACTINEX/FLORANEX) TAB PO SCH (20:08)
--- NOTE | 2017-04-28 20:55 | Progress Note (SOAP) ---
Subjective Subjective/Events-last exam Patient upset this AM because she was told that her dog had to leave due to concerns about bitting. Patient has not been up to her wheelchair and is not wanting to participate with therapy. Tolerating PO diet. Denies any BM Review of Systems Date Seen by Provider: Apr 28, 2017 Time Seen by Provider: 10:45 Pulmonary: Dyspnea, No Cough Cardiovascular: No: Chest Pain, Palpitations Gastrointestinal: Nausea, Constipation, No: Abdominal Pain Objective Exam Last Set of Vital Signs Vital Signs Date Time Temp Pulse Resp B/P (MAP) Pulse Ox O2 Delivery O2 Flow Rate FiO2 04/28/17 20:00 97.1 80 20 127/60 (82) 92 High Flow N/C 5.00 04/25/17 10:53 30 Capillary Refill : Less Than 3 Seconds I&O Intake and Output 04/28/17 00:00 Intake Total 3020 ml Output Total 2425 ml Balance 595 ml Intake Oral 2020 ml IV Total 1000 ml Output Urine Total 2425 ml General: Alert, Oriented X3, No Acute Distress HEENT: Mucous Memb Moist/[place] Lungs: Other (+ wheezing diffusely, no crackles) Heart: Regular Rate, No Murmurs Abdomen: Normal Bowel Sounds, Soft, No Tenderness, No Masses Results/Procedures Lab Laboratory Tests 04/28/17 06:05: White Blood Count 8.1, Red Blood Count 3.58L, Hemoglobin 11.1L, Hematocrit 35, Mean Corpuscular Volume 98, Mean Corpuscular Hemoglobin 31, Mean Corpuscular Hemoglobin Concent 32, Red Cell Distribution Width 14.8H, Platelet Count 193, Mean Platelet Volume 10.0, Neutrophils (%) (Auto) 31L, Lymphocytes (%) (Auto) 58H, Monocytes (%) (Auto) 11, Eosinophils (%) (Auto) 1, Basophils (%) (Auto) 0, Neutrophils # (Auto) 2.5, Lymphocytes # (Auto) 4.7H, Monocytes # (Auto) 0.9, Eosinophils # (Auto) 0.0, Basophils # (Auto) 0.0, Sodium Level 143, Potassium Level 4.2, Chloride Level 105, Carbon Dioxide Level 27, Anion Gap 11, Blood Urea Nitrogen 14, Creatinine 0.35L, Estimat Glomerular Filtration Rate > 60, BUN /Creatinine Ratio 40, Glucose Level 74, Calcium Level 8.9 Microbiology 04/23/17 Blood Culture - Final, Complete No growth Radiology CXR 04/26/17: Left lower lobe base atelectasis, effusion, and infiltrate. Right lung clear. Assessment/Plan Assessment/Plan Plan INFLUENZA B RESPIRATORY DISTRESS ADM: Patient currently on Vapotherm and satting in the low 90s. Expect her O2 need will continue through the weekend. Have also started Tamiflu (which she received in ER). Anticipate that the O2 need is going to continue through the weekend d/t her underlying comorbidities. Have started MAT protocol as well. I did start oral steroids as I did not see a benefit of high dose. I did not start antibiotics owing to the clear CXR. 04/25: Continued need for oxygen, Repeat CXR in AM, Ordered IS and encouraged patient to have wheelchair brought to hosp 04/26: Continued need for oxygen; improving: pt current O2 sat 94% on 4L of O2. Continue to wean O2. Vapotherm discontinued. CXR results show LLL base atelectasis, effusion and infiltrate. Continue to encourage IS and activity in wheelchair. Continue Tamiflu (04/23-04/28). 04/27: Increase activity, Patient on 4L today, decreases PO steroid to 20 mg daily 04/28: Encouraged patient to get into chair today, continues to require 5L NC PRESSURE ULCER OF RIGHT ISCHIUM ADM: Chronic, needs to be turned frequently DMT2, controlled ADM: ADA diet, home metformin DVT PROPH: Lovenox Dipso: Patient desires to discharge home tomorrow SW: Will be d/c on home oxygen, PT/OT Clinical Quality Measures DVT/VTE Risk/Contraindication: Risk Factor Score Per Nursin RFS Level Per Nursing on Admit: 3=High JENNIFER HILARIO MD Apr 28, 2017 20:54
[2017-04-28] MEDS: NS IV 1000 ML 1,000 ML IV SCH (23:05)
[2017-04-29] VITALS: BP 107/52
[2017-04-29 04:00] VITALS: BP 124/81
[2017-04-29] MEDS: RT-ALBUTEROL/IPRATROPIUM 3 ML (DUONEB) VIAL INH SCH ×4 (06:50→19:49)
[2017-04-29 07:40] LABS: BASOPHILS % (AUTO) 0 % (0-10); EOSINOPHILS # (AUTO) 0.1 10^3/uL (0.0-0.3); EOSINOPHILS % (AUTO) 1 % (0-10); HEMATOCRIT 36 % (35-52); HEMOGLOBIN 11.2 G/DL (11.5-16.0); LYMPHOCYTES % (AUTO) 59 % (12-44); MEAN CORPUSCULAR HEMOGLOBIN 31 PG (25-34); MEAN CORPUSCULAR HGB CONC 32 G/DL (32-36); MEAN CORPUSCULAR VOLUME 98 FL (80-99); MEAN PLATELET VOLUME 9.8 FL (7.4-10.4); MONOCYTES # (AUTO) 0.8 X 10^3 (0.0-1.0); MONOCYTES % (AUTO) 11 % (0-12); NEUTROPHILS # (AUTO) 1.9 X 10^3 (1.8-7.8); NEUTROPHILS % (AUTO) 29 % (42-75); PLATELET COUNT 222 10^3/uL (130-400); RED BLOOD COUNT 3.63 10^6/uL (4.35-5.85); RED CELL DISTRIBUTION WIDTH 14.5 % (10.0-14.5); WHITE BLOOD COUNT 6.8 10^3/uL (4.3-11.0)
[2017-04-29 08:00] VITALS: BP 105/55
[2017-04-29 08:09] LABS: ALANINE AMINOTRANSFERASE 36 U/L (0-55); ALBUMIN 3.3 GM/DL (3.2-4.5); ALKALINE PHOSPHATASE 41 U/L (40-136); BILIRUBIN,TOTAL 0.4 MG/DL (0.1-1.0); BUN/CREATININE RATIO 36; CALCIUM 8.7 MG/DL (8.5-10.1); CARBON DIOXIDE 29 MMOL/L (21-32); CHLORIDE 106 MMOL/L (98-107); CREATININE SERUM 0.36 MG/DL (0.60-1.30); GFR ESTIMATED > 60; GLUCOSE 77 MG/DL (70-105); POTASSIUM 4.2 MMOL/L (3.6-5.0); SODIUM 143 MMOL/L (135-145)
[2017-04-29] MEDS: ENOXAPARIN 40 MG/0.4 ML (LOVENOX) SYR SC SCH (08:28)
--- NOTE | 2017-04-29 10:26 | Physical Therapy Progress Note ---
Therapy Progress Note Patient is currently eating breakfast and when asked to get OOB, patient states , "I don't know." PT will attempt after she complete breakfast. 1 visit SHELLY POLANCO PT Apr 29, 2017 10:26
[2017-04-29] MEDS ORDERED: FLEET ENEMA ADULT 1 EA BTL PR NR (10:45)
[2017-04-29] MEDS: FLUTICASONE NASAL SPRAY (FLONASE) 16 GM BTL NS SCH (11:17)
[2017-04-29] MEDS: predniSONE 20 MG TAB PO SCH (11:17)
[2017-04-29] MEDS: MULTIVIT W/MINERALS TAB (THERAGRAN M) PO SCH (11:17)
[2017-04-29] MEDS: metFORMIN 500 MG (GLUCOPHAGE) TAB PO SCH ×2 (11:17→18:19)
[2017-04-29] MEDS: ALPRAZolam 0.5 MG (XANAX) TAB PO PRN (11:26)
[2017-04-29] MEDS: oxyCODONE/APAP 10/325MG (PERCOCET 10) TABLET PO PRN (11:26)
--- NOTE | 2017-04-29 11:27 | Physical Therapy Progress Note ---
Therapy Progress Note PT attempted at 1107 for up in w/c, however, patient c/o of lower abdominal pain. RN made aware. PT will attempt later today. 1 visit SHELLY POLANCO PT Apr 29, 2017 11:27
--- NOTE | 2017-04-29 11:31 | Progress Note (SOAP) ---
Subjective Subjective/Events-last exam Patient very apprehensive about going home today. Denies any shortness of breath but she is still requiring 5L NC. Denies any fever or chills. Has not been up in her chair as she has refused per PT. States that she has not had a BM for over a week and would like an enema today, no results with TID Miralax. Review of Systems Date Seen by Provider: Apr 29, 2017 Time Seen by Provider: 10:45 General: No Chills, Malaise Pulmonary: Cough Cardiovascular: No: Chest Pain, Palpitations Gastrointestinal: Abdominal Pain, Constipation, No: Nausea, Vomiting Objective Exam Last Set of Vital Signs Vital Signs Date Time Temp Pulse Resp B/P (MAP) Pulse Ox O2 Delivery O2 Flow Rate FiO2 04/29/17 08:00 97.4 63 24 105/55 (72) 93 High Flow N/C 5.00 04/25/17 10:53 30 Capillary Refill : Less Than 3 Seconds I&O Intake and Output 04/29/17 00:00 Intake Total 2230 ml Output Total 1775 ml Balance 455 ml Intake Oral 1230 ml IV Total 1000 ml Output Urine Total 1775 ml General: Alert, Oriented X3, Cooperative, No Acute Distress Lungs: Other (Diffuse wheezing, no crackles, normal work of breathing.) Heart: Regular Rate, No Murmurs Abdomen: Soft, Other (Mild LLQ ttp, normal Bowel sounds) Extremities: No Edema, No Tenderness/Swelling Neuro: Normal Speech, Sensation Intact, Cranial Nerves 3-12 NL Results/Procedures Lab Laboratory Tests 04/29/17 06:46: White Blood Count 6.8, Red Blood Count 3.63L, Hemoglobin 11.2L, Hematocrit 36, Mean Corpuscular Volume 98, Mean Corpuscular Hemoglobin 31, Mean Corpuscular Hemoglobin Concent 32, Red Cell Distribution Width 14.5, Platelet Count 222, Mean Platelet Volume 9.8, Neutrophils (%) (Auto) 29L, Lymphocytes (%) (Auto) 59H , Monocytes (%) (Auto) 11, Eosinophils (%) (Auto) 1, Basophils (%) (Auto) 0, Neutrophils # (Auto) 1.9, Lymphocytes # (Auto) 4.0, Monocytes # (Auto) 0.8, Eosinophils # (Auto) 0.1, Basophils # (Auto) 0.0, Sodium Level 143, Potassium Level 4.2, Chloride Level 106, Carbon Dioxide Level 29, Anion Gap 8, Blood Urea Nitrogen 13, Creatinine 0.36L, Estimat Glomerular Filtration Rate > 60, BUN/ Creatinine Ratio 36, Glucose Level 77, Calcium Level 8.7, Total Bilirubin 0.4, Aspartate Amino Transf (AST/SGOT) 41H, Alanine Aminotransferase (ALT/SGPT) 36, Alkaline Phosphatase 41, Total Protein 6.0L, Albumin 3.3 Microbiology 04/23/17 Blood Culture - Final, Complete No growth Radiology CXR 04/26/17: Left lower lobe base atelectasis, effusion, and infiltrate. Right lung clear. Assessment/Plan Assessment/Plan Plan INFLUENZA B RESPIRATORY DISTRESS ADM: Patient currently on Vapotherm and satting in the low 90s. Expect her O2 need will continue through the weekend. Have also started Tamiflu (which she received in ER). Anticipate that the O2 need is going to continue through the weekend d/t her underlying comorbidities. Have started MAT protocol as well. I did start oral steroids as I did not see a benefit of high dose. I did not start antibiotics owing to the clear CXR. 04/25: Continued need for oxygen, Repeat CXR in AM, Ordered IS and encouraged patient to have wheelchair brought to hosp 04/26: Continued need for oxygen; improving: pt current O2 sat 94% on 4L of O2. Continue to wean O2. Vapotherm discontinued. CXR results show LLL base atelectasis, effusion and infiltrate. Continue to encourage IS and activity in wheelchair. Continue Tamiflu (04/23-04/28). 04/27: Increase activity, Patient on 4L today, decreases PO steroid to 20 mg daily 04/28: Encouraged patient to get into chair today, continues to require 5L NC 04/29: Discussed with patient that she may need to go home on O2, still requiring 5L NC, Patient must get up to chair today PRESSURE ULCER OF RIGHT ISCHIUM ADM: Chronic, needs to be turned frequently DMT2, controlled ADM: ADA diet, home metformin CONSTIPATION - Miralax TID, Enema today DVT PROPH: Lovenox Dipso: Patient apprehensive to go home today, Discussed with patient the importance of participating in PT and getting up to chair and the role of helping expand her lungs. Patient voiced understanding and agreed to work on getting to chair today. If patient continues to refuse PT and RT then patient can be D/c'ed home with oxygen and outpatient PT/OT or SNF SW: Will be d/c on home oxygen, PT/OT Clinical Quality Measures DVT/VTE Risk/Contraindication: Risk Factor Score Per Nursin RFS Level Per Nursing on Admit: 3=High JENNIFER HILARIO MD Apr 29, 2017 11:31
[2017-04-29 12:00] VITALS: BP 119/57
--- NOTE | 2017-04-29 13:28 | Physical Therapy Progress Note ---
Therapy Progress Note (1311) Patient in bed and continues to c/o lower abdominal pain and waiting for an enema. PT will attempt in a.m. for OOB activity. 1 visit SHELLY POLANCO PT Apr 29, 2017 13:28
[2017-04-29 15:41] VITALS: BP 117/57
[2017-04-29] MEDS ORDERED: MAGNESIUM CITRATE 300 ML BTL PO PRN (17:00)
[2017-04-29] MEDS ORDERED: GOLYTELY POWDER 4000 ML BTL PO PRN (17:00)
[2017-04-29 20:00] VITALS: BP 111/53
[2017-04-29] MEDS: LACTOBACILLUS Acidoph/Bulgar (LACTINEX/FLORANEX) TAB PO SCH (20:40)
[2017-04-30] VITALS: BP 106/69
[2017-04-30] MEDS: oxyCODONE/APAP 10/325MG (PERCOCET 10) TABLET PO PRN ×2 (00:02→09:50)
[2017-04-30 04:00] VITALS: BP 111/71
[2017-04-30 07:00] LABS: BASOPHILS % (AUTO) 0 % (0-10); EOSINOPHILS # (AUTO) 0.1 10^3/uL (0.0-0.3); EOSINOPHILS % (AUTO) 2 % (0-10); HEMATOCRIT 34 % (35-52); LYMPHOCYTES # (AUTO) 4.6 X 10^3 (1.0-4.0); LYMPHOCYTES % (AUTO) 57 % (12-44); MEAN CORPUSCULAR HEMOGLOBIN 31 PG (25-34); MEAN CORPUSCULAR HGB CONC 32 G/DL (32-36); MEAN CORPUSCULAR VOLUME 97 FL (80-99); MEAN PLATELET VOLUME 9.6 FL (7.4-10.4); MONOCYTES # (AUTO) 0.7 X 10^3 (0.0-1.0); MONOCYTES % (AUTO) 9 % (0-12); NEUTROPHILS # (AUTO) 2.6 X 10^3 (1.8-7.8); NEUTROPHILS % (AUTO) 32 % (42-75); PLATELET COUNT 246 10^3/uL (130-400); RED BLOOD COUNT 3.53 10^6/uL (4.35-5.85); RED CELL DISTRIBUTION WIDTH 14.5 % (10.0-14.5)
[2017-04-30] MEDS: RT-ALBUTEROL/IPRATROPIUM 3 ML (DUONEB) VIAL INH SCH ×3 (07:04→15:23)
[2017-04-30 07:25] LABS: BUN/CREATININE RATIO 29; CALCIUM 8.7 MG/DL (8.5-10.1); CARBON DIOXIDE 26 MMOL/L (21-32); CHLORIDE 106 MMOL/L (98-107); CREATININE SERUM 0.38 MG/DL (0.60-1.30); GFR ESTIMATED > 60; GLUCOSE 77 MG/DL (70-105); POTASSIUM 3.8 MMOL/L (3.6-5.0); SODIUM 142 MMOL/L (135-145)
[2017-04-30 08:00] VITALS: BP 113/56
[2017-04-30] MEDS: metFORMIN 500 MG (GLUCOPHAGE) TAB PO SCH ×2 (08:03→18:02)
[2017-04-30] MEDS: NS IV 1000 ML 1,000 ML IV SCH (08:03)
[2017-04-30] MEDS: predniSONE 20 MG TAB PO SCH (08:04)
[2017-04-30] MEDS: MULTIVIT W/MINERALS TAB (THERAGRAN M) PO SCH (08:04)
[2017-04-30] MEDS: FLUTICASONE NASAL SPRAY (FLONASE) 16 GM BTL NS SCH (08:05)
[2017-04-30] MEDS: ENOXAPARIN 40 MG/0.4 ML (LOVENOX) SYR SC SCH (08:05)
[2017-04-30] MEDS: ALPRAZolam 0.5 MG (XANAX) TAB PO PRN (09:50)
[2017-04-30 12:00] VITALS: BP 108/51
--- NOTE | 2017-04-30 15:08 | Discharge Summary ---
Diagnosis/Chief Complaint Date of Admission Apr 23, 2017 at 11:50 Date of Discharge Chief Complaint/HPI Chief Complaint/HPI 56yo woman with Kiecbtl-Gynup-Qtwtn Disease recently discharged 48h ago after being in hospital for impacted stool returned due to worsening fevers and respiratory distress. Patient had exhibited fever to 101-102 prior to discharge. Flu swab was ordered but not obtained. Patient had fluid on CXR which resolved with lasix and she was afebrile in the 24h prior to discharge. Patient's fever returned after discharge and she returned to ER. Was found to have Influenza B. Patient did not have respiratory distress at the time and was discharged home. She returned after she developed shortness of breath while at home in bed. Was found to have O2 sats in sanchez 80s and required oxygen. She is admitted for treatment of the respiratory distress. Discharge Summary-Simple/Stand Consultations Discharge Physical Examination Allergies: Coded Allergies: Sulfa (Sulfonamide Antibiotics) (Unverified Allergy, Mild, 07/29/08) Iodinated Contrast- Oral and IV Dye (Verified Allergy, Unknown, 07/30/08) latex (Verified Allergy, Unknown, 07/30/08) povidone-iodine (Unverified Allergy, Unknown, 08/28/13) soap (Unverified Allergy, Unknown, 08/28/13) Uncoded Allergies: CONTRAST DYE (Allergy, Mild, 07/29/08) EES (Allergy, Mild, 07/29/08) Vitals & I&Os Vital Sign - Last 12Hours Date Time Temp Pulse Resp B/P (MAP) Pulse Ox O2 Delivery O2 Flow Rate FiO2 04/30/17 12:00 97.9 76 18 108/51 (70) 90 High Flow N/C 3.50 04/25/17 10:53 30 Intake and Output 04/30/17 00:00 Intake Total 1000 ml Output Total 1250 ml Balance -250 ml Hospital Course See final discharge diagnosis. Radiology Reviewed CXR 04/26/17: Left lower lobe base atelectasis, effusion, and infiltrate. Right lung clear. Discharge Instructions to patient/family Please see electronic discharge instructions given to patient. Discharge Medications Reviewed and agree with Discharge Medication list on patient's Discharge Instruction sheet Clinical Quality Measures DVT/VTE Risk/Contraindication: Risk Factor Score Per Nursin RFS Level Per Nursing on Admit: 3=High JENNIFER HILARIO MD Apr 30, 2017 15:07
[2017-04-30] MEDS ORDERED: SENN-1 PO ×2 (15:12→16:04)
[2017-04-30] MEDS ORDERED: POLY17PO23 PO (15:12)
[2017-04-30] MEDS ORDERED: RT-ALBUINH IH (15:12)
[2017-04-30] MEDS ORDERED: PRD20T PO (15:12)
--- NOTE | 2017-04-30 15:15 | D/C HH Face to Face Order ---
D/C Face to Face Orders Instructions for Patient Patient Instructions/FollowUp: You have a follow up appt with Derrell Ortiz 05/07 @ 4PM Physician to follow Patient: Denilson Discharge Diet for Home: No Restrictions Patient Problems: Acute Respiratory Failure with Hypoxia Influenza A Constipation Goals for Patient: Titrate off oxygen Get stronger and have more endurance Patient Data-Allergies,Ht & Wt Patient Allergies: Coded Allergies: Sulfa (Sulfonamide Antibiotics) (Unverified Allergy, Mild, 07/29/08) Iodinated Contrast- Oral and IV Dye (Verified Allergy, Unknown, 07/30/08) latex (Verified Allergy, Unknown, 07/30/08) povidone-iodine (Unverified Allergy, Unknown, 08/28/13) soap (Unverified Allergy, Unknown, 08/28/13) Uncoded Allergies: CONTRAST DYE (Allergy, Mild, 07/29/08) EES (Allergy, Mild, 07/29/08) Height (Feet): 5 Height (Inches): 1.00 Weight (Pounds): 135 Weight (Ounces): 0.0 Home Health Need/Face to Face Date of Face to Face: Apr 30, 2017 Clinical Findings: Generalized weakness and fatigue, Non or partial weight bearing, Shortness of breath, Non-healing wound I have seen Pt [id number]: Yes Discharged To: Home Diagnosis/Conditions: See Patient Problems Problems/Diagnosis/Condition: Patient is Homebound due to: Non-weight bearing, Shortness of breath/distress Homebound Status Due to the above stated illness, injury or surgical procedure (medical condition or diagnosis) and associated clinical findings, the patient is homebound because of his/her inability to leave home except with aid of a supportive device and/or person AND leaving the home requires a considerable and taxing effort or is medically contraindicated. Pt req the following assistanc: Aid of another person, Wheelchair Home Health Nursing Orders Home Health Services Order: Nursing Services, Physical Therapy-Evaluate & Treat , Wound Care-Eval/Treat Therapy Orders Therapy Orders: Physical Therapy, PT to assess for OT Therapy Specific Orders: Increase strength/endurance Certify Stmt I certify that this patient is under my care and that I, a nurse practitioner or a physician; a insurance account assistant working with me, had a face to face encounter that - meets the physician face to face encounter requirements with this patient as dated. JENNIFER HILARIO MD Apr 30, 2017 15:15
[2017-04-30 16:25] VITALS: BP 127/60
== END 2017-04-30 19:00 | disposition home or self-care (01) | DRG 204 ==
LOC: EDUNIT# 09:46 → ER 09:47 → 4TH 11:50
PROVIDERS: ADMIT Pediatrics; ATTEND Pediatrics
DX: R06.03 Acute respiratory distress (principal); J11.1 Influenza due to unidentified influenza virus with other respiratory manifestations; G60.0 Hereditary motor and sensory neuropathy; E11.9 Type 2 diabetes mellitus without complications; L89.159 Pressure ulcer of sacral region, unspecified stage; N31.9 Neuromuscular dysfunction of bladder, unspecified; F41.9 Anxiety disorder, unspecified; M81.0 Age-related osteoporosis without current pathological fracture; M19.91 Primary osteoarthritis, unspecified site; K59.00 Constipation, unspecified; F17.210 Nicotine dependence, cigarettes, uncomplicated; F32.9 Major depressive disorder, single episode, unspecified; Z99.3 Dependence on wheelchair
CPT/HCPCS: 36415; 71045; 80048; 80053; 82962; 83605; 85025; 85610; 85730; 87040; 87804; 94640; 94664; 94760; 94761; 96374; 99283; 99284

== ENCOUNTER 2017-05-12 18:33 | Inpatient (IN) | payer MEDICAID ==
[~2017-05-12] VITALS: Ht 152.4 cm; Wt 64.4 kg
[~2017-05-12 18:33] MED LIST changes: +OSLT75C PO; +POLY17PO23 PO; +PRD20T PO; +RT-ALBUINH IH; +SENN-1 PO
--- OUTSIDE RECORDS SUMMARY | 2017-05-12 18:39 | XMS REPORT | Clinical Summary ---
Author Author [facility] Organization [facility] Address Unknown Phone Unavailable Care Team Providers Care Decorating Consultant Name Role Phone Marcus Richard MD PCP Raffi Rey MD Unavailable Brandyn Montoya MD Unavailable Source Comments Some departments are not documenting in the electronic medical record. If you do not see the information that you expected, contact Release of Information in the Health Information Management department at [phone] for further assistance in locating additional records.[facility] Allergies Active Allergy Reactions Severity Noted [...] Taken Blood Pressure 114/70 03/31/2009 6:00 AM BLEACH ANALYST Pulse 80 03/31/2009 6:00 AM BLEACH ANALYST Temperature 36.6 C (97.9 F) 03/31/2009 6:00 AM BLEACH ANALYST Respiratory Rate - - Oxygen Saturation 95% 03/31/2009 6:00 AM BLEACH ANALYST Inhaled Oxygen - - Concentration Weight 68.1 kg (150 lb 2.1 oz) 03/23/2009 3:00 PM BLEACH ANALYST Height 154.9 cm (5' 1") 03/23/2009 3:00 PM BLEACH ANALYST Body Mass Index 28.37 03/23/2009 3:00 PM BLEACH ANALYST Plan of Treatment Health Maintenance Due Date Last Done Comments HEPATITIS C SCREENING 1958 PHYSICAL (COMPREHENSIVE) 1965 EXAM PERTUSSIS VACCINE 1969 TETANUS VACCINE 11/03/1975 CERVICAL CANCER SCREENING 1988 BREAST CANCER SCREENING 1998 COLORECTAL CANCER 2008 SCREENING INFLUENZA VACCINE 11/11/2016 Results Not on filefrom Last 3 Months
[2017-05-12 18:45] VITALS: BP 111/68
[2017-05-12] MEDS ORDERED: methylPREDNISolone 125 MG (Solu-MEDROL) VIAL ONE (18:45)
[2017-05-12] MEDS ORDERED: morphine INJ 10 MG/ML 1ML (SYR OR VIAL) IVP STA (18:48)
[2017-05-12] MEDS ORDERED: DEXAMETHASONE 4 MG/ML SDV (DECADRON) ONE (18:53)
[2017-05-12] MEDS ORDERED: RT-ALBUTEROL/IPRATROPIUM 3 ML (DUONEB) VIAL ONE (18:53)
--- OUTSIDE RECORDS SUMMARY | 2017-05-12 18:57 | XMS REPORT | Continuity of Care Document ---
Author Author [facility] Address Unknown Phone Unavailable Allergies Active Description Code Type Severity Reaction Onset Reported/Identified Relationship to Patient Clinical Status Yes CONTRAST DYE CONTRAST DYE Mild N/A 07/29/2008 Yes EES EES Mild N/A 07/29/2008 Yes Sulfa (Sulfonamide Antibiotics) [id number] Drug Allergy Mild N/A 2008 Yes Iodinated Contrast Media - IV Dye [id number] Drug Allergy Unknown N/A 07/30 Yes Iodinated Contrast Media - Oral and [id number] Drug Allergy Unknown N/A Yes Iodinated Contrast- Oral and IV Dye [id number] Drug Allergy Unknown N/A Yes latex [id number] Drug Allergy Unknown N/A 07/30/[address] [...] mg tablet Drug Allergy 04/19/2012 Yes povidone-iodine [id number] Drug Allergy Unknown N/A 08/28/2013 Yes Soap [id number] Drug Allergy Unknown N/A 08/28/2013 Medications There [...] MUSCULAR ATROPHY 06/03/2010 780.79 FATIGUE 06/03/2010 THONG [employer]OCK[employer] REPAIRER, DWAINE T 250.00 DIABETES MELLITUS TYPE 2 [...] T 356.1 PERONEAL MUSCULAR ATROPHY 06/03/2010 THONG [employer] CLOCKS REPAIRER, DWAINE T 780.79 FATIGUE 06/03/2010 THONG [employer] CLOCKS REPAIRER, DWAINE T 250.00 DIABETES MELLITUS TYPE 2 06/03/2010 THONG SAAVEDRAN, DWAINE T 356.1 PERONEAL MUSCULAR ATROPHY 06/03/2010 THONG [employer] CLOCKS REPAIRER, DWAINE T 780.79 FATIGUE 06/03/2010 THONG [employer] CLOCKS REPAIRER, DWAINE T 250.00 DIABETES MELLITUS TYPE 2 06/03/2010 THONG SAAVEDRAN, DWAINE T 356.1 PERONEAL MUSCULAR ATROPHY 06/03/2010 THONG SAAVEDRAN, DWAINE T 780.79 FATIGUE 06/03/2010 THONG AUTO CLOCKS REPAIRER, DWAINE T 250.00 DIABETES MELLITUS TYPE 2 [...] 250.00 DIABETES MELLITUS TYPE 2 06/03/2010 THONG AUT[employer] CLOCKS REPAIRER, DWAINE T 356.1 PERONEAL MUSCULAR ATROPHY 06/03/2010 [...] DWAINE T 780.79 FATIGUE 06/03/2010 THONG HODGES, DAWINE T 250.00 DIABETES MELLITUS TYPE 2 [...] T 356.1 PERONEAL MUSCULAR ATROPHY 06/03/2010 THONG OHDGES DWAINE T 780.79 FATIGUE 06/03/2010 NEIDA TALBOT [...] T 356.1 PERONEAL MUSCULAR ATROPHY 06/03/2010 THONG [employer] CLOCKS REPAIRER, DWAINE T 780.79 FATIGUE 06/03/2010 THONG HODGES, [...] HODGES DWAINE T 780.79 FATIGUE 06/03/2010 THONG HODEGS, DWAINE T 250.00 DIABETES MELLITUS TYPE 2 06/03/2010 THONG HODGES DWAINE T 356.1 PERONEAL MUSCULAR ATROPHY 06/03/2010 THONG HODGES DWAINE T 780.79 FATIGUE 06/03/2010 THONG HODGES DWAINE T 250.00 DIABETES MELLITUS TYPE 2 06/03/2010 THONG HODGES DWAINE T 356.1 PERONEAL MUSCULAR ATROPHY 06/03/2010 THONG HODGES DWAINE T 780.79 FATIGUE 06/03/2010 THONG HODGES DWAINE T 250.00 DIABETES MELLITUS TYPE 2 06/03/2010 THONG [employer] CLOCKS REPAIRER, DWAINE T 356.1 PERONEAL MUSCULAR ATROPHY 06/03/2010 [...] THONG HODGES, DWAINE T 780.79 FATIGUE 06/03/2010 THNOG HODGES, DWAINE T 250.00 DIABETES MELLITUS TYPE 2 06/03/2010 THONG HODGES DWAINE T 356.1 PERONEAL MUSCULAR ATROPHY 06/03/2010 THONG HODGES DWAINE T 780.79 FATIGUE 06/03/2010 THONG [employer] CLOCKS REPAIRER, DWAINE T 250.00 DIABETES MELLITUS TYPE 2 [...] MD 268.9 VITAMIN D DEFICIENCY 06/28/2010 THONG [employer] CLOCKS REPAIRER, DWAINE T 268.9 VITAMIN D DEFICIENCY 06/28/2010 THONG [employer] CLOCK[employer] REPAIRER DWAINE T 268.9 VITAMIN D DEFICIENCY 06/28/2010 THONG AUT[employer] CLOCKS REPAIRER DWAINE T 268.9 VITAMIN D DEFICIENCY 06/28/2010 THONG AUTO CLOCKS REPAIRER, DWAINE T 268.9 VITAMIN D DEFICIENCY 06/28/2010 THONG AUTO CLOCKS REPAIRER, DWAINE T 268.9 VITAMIN D DEFICIENCY 06/28/2010 THONG AUTO CLOCKS REPAIRER, DWAINE T 268.9 VITAMIN D DEFICIENCY 06/28/2010 THONG AUTO CLOCKS REPAIRER DWAINE T 268.9 VITAMIN D DEFICIENCY 06/28/2010 THONG [employer] CLOCKS REPAIRER DWAINE T 268.9 VITAMIN D DEFICIENCY 06/28/2010 RAYMOND MORRISON, YE Robles 268.9 VITAMIN D DEFICIENCY 06/28/2010 THONG [employer] REPAIRER DWAINE T 268.9 VITAMIN D DEFICIENCY 06/28/2010 [...] 272.4 HYPERLIPIDEMIA 07/02/2010 272.4 HYPERLIPIDEMIA 07/02/2010 THONG [employer]S REPAIRER, DWAINE T 272.4 HYPERLIPIDEMIA 07/02/2010 272.4 HYPERLIPIDEMIA 07/02/2010 272.4 HYPERLIPIDEMIA 07/02/2010 272.4 HYPERLIPIDEMIA 07/02/2010 272.4 HYPERLIPIDEMIA 07/02/2010 272.4 HYPERLIPIDEMIA 07/02/2010 272.4 HYPERLIPIDEMIA 07/02/2010 272.4 HYPERLIPIDEMIA 07/02/2010 272.4 HYPERLIPIDEMIA 07/02/2010 272.4 HYPERLIPIDEMIA 07/02/2010 272.4 HYPERLIPIDEMIA 07/02/2010 272.4 HYPERLIPIDEMIA 07/02/2010 THONG AUT[employer] CLOCKS REPAIRER, DWAINE T 272.4 HYPERLIPIDEMIA 07/02/2010 THONG AUT[employer] CLOCKS REPAIRER, DWAINE T 272.4 HYPERLIPIDEMIA 07/02/2010 NEIDA TALBOT MD 272.4 HYPERLIPIDEMIA 07/02/2010 THONG [employer] CLOCKS REPAIRER, DWAINE T 272.4 HYPERLIPIDEMIA 07/02/2010 NEIDA TALBOT MD 272.4 HYPERLIPIDEMIA 07/02/2010 THONG AUT[employer] CLOCKS REPAIRER, DWAINE T 272.4 HYPERLIPIDEMIA 07/02/2010 NEIDA TALBOT MD 272.4 HYPERLIPIDEMIA 07/02/2010 THONG AUTO CLOCKS REPAIRER, DWAINE T 272.4 HYPERLIPIDEMIA 07/02/2010 THONG AUTO CLOCKS REPAIRER, DWAINE T 272.4 HYPERLIPIDEMIA 07/02/2010 THONG AUTO CLOCKS REPAIRER, DWAINE T 272.4 HYPERLIPIDEMIA 07/02/2010 THONG AUTO CLOCKS REPAIRER, DWAINE T 272.4 HYPERLIPIDEMIA 07/02/2010 THONG AUTO CLOCKS REPAIRER, DWAINE T 272.4 HYPERLIPIDEMIA 07/02/2010 THONG AUTO CLOCKS REPAIRER, DWAINE T 272.4 HYPERLIPIDEMIA 07/02/2010 THONG AUTO CLOCKS REPAIRER, DWAINE T 272.4 HYPERLIPIDEMIA 07/02/2010 THONG AUT[employer] CLOCKS REPAIRER, DWAINE T 272.4 HYPERLIPIDEMIA 07/02/2010 YE ANDRADE MD 272.4 HYPERLIPIDEMIA 07/02/2010 THONG AUT[employer] CLOCKS REPAIRER, DWAINE T 272.4 HYPERLIPIDEMIA 07/02/2010 THONG AUT[employer] CLOCKS REPAIRER, DWAINE T 272.4 HYPERLIPIDEMIA 07/02/2010 THONG AUTO CLOCKS REPAIRER, DWAINE T 272.4 HYPERLIPIDEMIA 07/02/2010 THONG AUTO CLOCKS REPAIRER, DWAINE T 272.4 HYPERLIPIDEMIA 07/02/2010 THONG AUTO CLOCKS REPAIRER, DWAINE T 272.4 HYPERLIPIDEMIA 07/02/2010 THONG AUTO CLOCKS REPAIRER, DWAINE T 272.4 HYPERLIPIDEMIA 07/02/2010 THONG AUTO CLOCKS REPAIRER, DWAINE T 272.4 HYPERLIPIDEMIA 07/02/2010 THONG AUTO CLOCKS REPAIRER, DWAINE T 272.4 HYPERLIPIDEMIA 07/02/2010 THONG AUTO CLOCKS REPAIRER, DWAINE T 272.4 HYPERLIPIDEMIA 07/02/2010 NEIDA TALBOT MD 272.4 HYPERLIPIDEMIA 07/02/2010 THONG AUTO CLOCKS REPAIRER, DWAINE T 272.4 HYPERLIPIDEMIA 07/02/2010 THONG AUTO CLOCKS REPAIRER, DWAINE T 272.4 HYPERLIPIDEMIA 07/02/2010 THONG AUTO CLOCKS REPAIRER, DWAINE T 272.4 HYPERLIPIDEMIA 07/02/2010 THONG AUTO CLOCKS REPAIRER, DWAINE T 272.4 HYPERLIPIDEMIA 07/02/2010 THONG AUTO CLOCKS REPAIRER, DWAINE T 272.4 HYPERLIPIDEMIA 07/02/2010 THONG AUTO CLOCKS REPAIRER, DWAINE T 272.4 HYPERLIPIDEMIA 07/02/2010 THONG AUTO CLOCKS REPAIRER, DWAINE T 272.4 HYPERLIPIDEMIA 07/02/2010 NEIDA TALBOT MD 272.4 HYPERLIPIDEMIA 07/02/2010 272.4 HYPERLIPIDEMIA 07/02/2010 THONG AUTO CLOCKS REPAIRER, DWAINE T 272.4 HYPERLIPIDEMIA 07/02/2010 THONG AUTO CLOCKS REPAIRER, DWAINE T 272.4 HYPERLIPIDEMIA 07/02/2010 THONG AUTO CLOCKS REPAIRER, DWAINE T 272.4 HYPERLIPIDEMIA 07/02/2010 THONG AUTO CLOCKS REPAIRER, DWAINE T 272.4 HYPERLIPIDEMIA 07/02/2010 THONG AUTO CLOCKS REPAIRER, DWAINE T 272.4 HYPERLIPIDEMIA 07/02/2010 NEIDA TALBOT MD 272.4 HYPERLIPIDEMIA 07/02/2010 THONG AUTO CLOCKS REPAIRER, DWAINE T 272.4 HYPERLIPIDEMIA 07/02/2010 THONG AUTO CLOCKS REPAIRER, DWAINE T 272.4 HYPERLIPIDEMIA 07/02/2010 PRICE DO, GILBERTO K 272.4 HYPERLIPIDEMIA 07/02/2010 THONG AUTO CLOCKS REPAIRER, DWAINE T 272.4 HYPERLIPIDEMIA 07/02/2010 THONG AUTO CLOCKS REPAIRER, DWAINE T 272.4 HYPERLIPIDEMIA 07/02/2010 THONG AUTO CLOCKS REPAIRER, DWAINE T 272.4 HYPERLIPIDEMIA 07/02/2010 THONG AUTO CLOCKS REPAIRER, DWAINE T 272.4 HYPERLIPIDEMIA 07/02/2010 THONG AUTO CLOCKS REPAIRER, DWAINE T 272.4 HYPERLIPIDEMIA 07/02/2010 PRICE DO, GILBERTO K 272.4 HYPERLIPIDEMIA 07/02/2010 THONG AUT[employer] CLOCKS REPAIRER, DWAINE T 272.4 HYPERLIPIDEMIA 07/02/2010 THONG AUTO CLOCKS REPAIRER, DWAINE T 272.4 HYPERLIPIDEMIA 07/02/2010 THONG AUTO CLOCKS REPAIRER, DWAINE T 272.4 HYPERLIPIDEMIA 07/02/2010 THONG AUTO CLOCKS REPAIRER, DWAINE T 272.4 HYPERLIPIDEMIA 07/02/2010 THONG AUTO CLOCKS REPAIRER, DWAINE T 272.4 HYPERLIPIDEMIA 07/02/2010 THONG AUTO CLOCKS REPAIRER, DWAINE T 272.4 HYPERLIPIDEMIA 07/02/2010 THONG AUTO CLOCKS REPAIRER, DWAINE T 272.4 HYPERLIPIDEMIA 07/02/2010 THONG AUTO CLOCKS REPAIRER, DWAINE T 272.4 HYPERLIPIDEMIA 07/02/2010 THONG AUTO CLOCKS REPAIRER, DWAINE T 272.4 HYPERLIPIDEMIA 07/02/2010 DWAINE BENITO [...] GILBERTO PRICE DO V58.31 WOUND DRESSING 08/07/2010 DWAIEN BENITO APRN 707.05 CHRONIC CUTANEOUS ULCER DECUBITUS [...] TALBOT MD V58.31 WOUND DRESSING 08/07/2010 THONG [employer] CLOCKS REPAIRER, DWAINE T 707.05 CHRONIC CUTANEOUS ULCER DECUBITUS [...] CHRONIC CUTANEOUS ULCER DECUBITUS BUTTOCK 08/07/2010 THONG SAVAEDRAN, DWAINE T V58.31 WOUND DRESSING 08/07/2010 THONG [...] CHRONIC CUTANEOUS ULCER DECUBITUS BUTTOCK 08/07/2010 THONG AUT[employer] CLOCKS REPAIRER, DWAINE T V58.31 WOUND DRESSING 08/07/2010 THONG [...] HDOGES DWAINE T V58.31 WOUND DRESSING 08/07/2010 DWAINE [...] TALBOT MD 338.29 CHRONIC PAIN 08/14/2010 THONG OHDGES DWAINE T 300.00 anxiety 08/14/2010 THONG HODGES [...] HODGES DWAINE T 300.00 anxiety 08/14/2010 THONG AUT[employer] CLOCKS REPAIRER, DWAINE T 338.29 CHRONIC PAIN 08/14/2010 THONG AUT[employer] CLOCKS REPAIRER, DWAINE T 300.00 anxiety 08/14/2010 THONG AUT[employer] CLOCKS REPAIRER, DWAINE T 338.29 CHRONIC PAIN 08/14/2010 THONG AUT[employer] CLOCKS REPAIRER, DWAINE T 300.00 anxiety 08/14/2010 THONG AUTO CLOCKS REPAIRER, DWAINE T 338.29 CHRONIC PAIN 08/14/2010 YE ANDRADE MD 300.00 anxiety 08/14/2010 YE ANDRADE MD 338.29 CHRONIC PAIN 08/14/2010 THONG AUT[employer] CLOCKS REPAIRER, DWAINE T 300.00 anxiety 08/14/2010 THONG AUT[employer] CLOCKS REPAIRER, DWAINE T 338.29 CHRONIC PAIN 08/14/2010 THONG AUTO CLOCKS REPAIRER, DWAINE T 300.00 anxiety 08/14/2010 THONG SAAVEDRAN, DWAINE T 338.29 CHRONIC PAIN 08/14/2010 THONG SAAVEDRAN, DWAINE T 300.00 anxiety 08/14/2010 THONG HODGES DWAINE T 338.29 CHRONIC PAIN 08/14/2010 THONG HODGES, DWAINE T 300.00 anxiety 08/14/2010 THONG SAAVEDRAN DWAINE T 338.29 CHRONIC PAIN 08/14/2010 THONG AUTO CLOCKS REPAIRER, DWAINE T 300.00 anxiety 08/14/2010 THONG AUTO CLOCKS REPAIRER, DWAINE T 338.29 CHRONIC PAIN 08/14/2010 THONG AUTO CLOCKS REPAIRER, DWAINE T 300.00 anxiety 08/14/2010 THONG AUTO CLOCKS REPAIRER, DWAINE T 338.29 CHRONIC PAIN 08/14/2010 THONG AUTO CLOCKS REPAIRER, DWAINE T 300.00 anxiety 08/14/2010 THONG AUT[employer] CLOCKS REPAIRER, DWAINE T 338.29 CHRONIC PAIN 08/14/2010 THONG HODGES, DWAINE T 300.00 anxiety 08/14/2010 THONG HODGES DWAINE T 338.29 CHRONIC PAIN 08/14/2010 THONG AUT[employer] CLOCKS REPAIRER, DWAINE T 300.00 anxiety 08/14/2010 THONG AUTO CLOCKS REPAIRER, DWAINE T 338.29 CHRONIC PAIN 08/14/2010 NEIDA [...] DWAINE T 338.29 CHRONIC PAIN 08/14/2010 THONG AUT[employer] CLOCKS REPAIRER, DWAINE T 300.00 anxiety 08/14/2010 THONG AUT[employer] CLOCKS REPAIRER, DWAINE T 338.29 CHRONIC PAIN 08/14/2010 THONG AUTO CLOCKS REPAIRER, DWAINE T 300.00 anxiety 08/14/2010 THONG AUT[employer] CLOCKS REPAIRER, DWAINE T 338.29 CHRONIC PAIN 08/14/2010 THONG AUT[employer] CLOCKS REPAIRER, DWAINE T 300.00 anxiety 08/14/2010 THONG AUTO CLOCKS REPAIRER, DWAINE T 338.29 CHRONIC PAIN 08/14/2010 THONG AUT[employer] CLOCKS REPAIRER, DWAINE T 300.00 anxiety 08/14/2010 THONG AUT[employer] CLOCKS REPAIRER, DWAINE T 338.29 CHRONIC PAIN 08/14/2010 PRICE DO, GILBERTO K 300.00 anxiety 08/14/2010 PRICE DO, GILBERTO K 338.29 CHRONIC PAIN 08/14/2010 THONG AUT[employer] CLOCKS REPAIRER, DWAINE T 300.00 anxiety 08/14/2010 THONG AUTO CLOCKS REPAIRER, DWAINE T 338.29 CHRONIC PAIN 08/14/2010 THONG AUTO CLOCKS REPAIRER, DWAINE T 300.00 anxiety 08/14/2010 THONG AUTO CLOCKS REPAIRER, DWAINE T 338.29 CHRONIC PAIN 08/14/2010 THONG AUTO CLOCKS REPAIRER, DWAINE T 300.00 anxiety 08/14/2010 THONG AUTO CLOCKS REPAIRER, DWAINE T 338.29 CHRONIC PAIN 08/14/2010 THONG AUTO CLOCKS REPAIRER, DWAINE T 300.00 anxiety 08/14/2010 THONG AUTO CLOCKS REPAIRER, DWAINE T 338.29 CHRONIC PAIN 08/14/2010 THONG AUTO CLOCKS REPAIRER, DWAINE T 300.00 anxiety 08/14/2010 THONG AUTO CLOCKS REPAIRER, DWAINE T 338.29 CHRONIC PAIN 08/14/2010 THONG AUTO CLOCKS REPAIRER, DWAINE T 300.00 anxiety 08/14/2010 THONG AUTO CLOCKS REPAIRER, DWAINE T 338.29 CHRONIC PAIN 08/14/2010 THONG AUTO CLOCKS REPAIRER, DWAINE T 300.00 anxiety 08/14/2010 THONG AUTO CLOCKS REPAIRER, DWAINE T 338.29 CHRONIC PAIN 08/14/2010 THONG AUTO CLOCKS REPAIRER, DWAINE T 300.00 anxiety 08/14/2010 THONG AUTO CLOCKS REPAIRER, DWAINE T 338.29 CHRONIC PAIN 08/14/2010 THONG AUTO CLOCKS REPAIRER, DWAINE T 300.00 anxiety 08/14/2010 THONG AUTO CLOCKS REPAIRER, DWAINE T 338.29 CHRONIC PAIN 08/14/2010 THONG AUTO CLOCKS REPAIRER, DWAINE T 300.00 anxiety 08/14/2010 THONG AUTO CLOCKS REPAIRER, DWAINE T 338.29 CHRONIC PAIN 09/17/2010 Ot [...] T 599.0 URINARY TRACT INFECTION 09/21/2010 THONG AUTO CLOCKS REPAIRER, DWAINE T 599.0 URINARY TRACT INFECTION 09/21/2010 THONG AUTO CLOCKS REPAIRER, DWAINE T 599.0 URINARY TRACT INFECTION 09/21/2010 THONG AUTO CLOCKS REPAIRER, DWAINE T 599.0 URINARY TRACT INFECTION 09/21/2010 THONG AUTO CLOCKS REPAIRER, DWAINE T 599.0 URINARY TRACT INFECTION 09/21/2010 RAYMOND MORRISON, YE M 599.0 URINARY TRACT INFECTION 09/21/2010 THONG AUTO CLOCKS REPAIRER, DWAINE T 599.0 URINARY TRACT INFECTION 09/21/2010 THONG AUTO CLOCKS REPAIRER, DWAINE T 599.0 URINARY TRACT INFECTION 09/21/2010 THONG AUTO CLOCKS REPAIRER, DWAINE T 599.0 URINARY TRACT INFECTION 09/21/2010 THONG AUTO CLOCKS REPAIRER, DWAINE T 599.0 URINARY TRACT INFECTION 09/21/2010 THONG AUTO CLOCKS REPAIRER, DWAINE T 599.0 URINARY TRACT INFECTION 09/21/2010 THONG AUTO CLOCKS REPAIRER, DWAINE T 599.0 URINARY TRACT INFECTION 09/21/2010 THONG AUTO CLOCKS REPAIRER, DWAINE T 599.0 URINARY TRACT INFECTION 09/21/2010 THONG AUTO CLOCKS REPAIRER, DWAINE T 599.0 URINARY TRACT INFECTION 09/21/2010 THONG AUTO CLOCKS REPAIRER, DWAINE T 599.0 URINARY TRACT INFECTION 09/21/2010 ANTIONE MORRISON, NEIDA 599.0 URINARY TRACT INFECTION 09/21/2010 THONG AUTO CLOCKS REPAIRER, DWAINE T 599.0 URINARY TRACT INFECTION 09/21/2010 THONG AUTO CLOCKS REPAIRER, DWAINE T 599.0 URINARY TRACT INFECTION 09/21/2010 THONG AUTO CLOCKS REPAIRER, DWAINE T 599.0 URINARY TRACT INFECTION 09/21/2010 THONG AUTO CLOCKS REPAIRER, DWAINE T 599.0 URINARY TRACT INFECTION 09/21/2010 THONG AUTO CLOCKS REPAIRER, DWAINE T 599.0 URINARY TRACT INFECTION 09/21/2010 THONG AUTO CLOCKS REPAIRER, DWAINE T 599.0 URINARY TRACT INFECTION 09/21/2010 THONG AUTO CLOCKS REPAIRER, DWAINE T 599.0 URINARY TRACT INFECTION 09/21/2010 NEIDA TALBOT MD 599.0 URINARY TRACT INFECTION 09/21/2010 599.0 URINARY TRACT INFECTION 09/21/2010 THONG AUTO CLOCKS REPAIRER, DWAINE T 599.0 URINARY TRACT INFECTION 09/21/2010 THONG AUTO CLOCKS REPAIRER, DWAINE T 599.0 URINARY TRACT INFECTION 09/21/2010 THONG AUTO CLOCKS REPAIRER, DWAINE T 599.0 URINARY TRACT INFECTION 09/21/2010 THONG AUTO CLOCKS REPAIRER, DWAINE T 599.0 URINARY TRACT INFECTION 09/21/2010 THONG HODGES, DWAINE T 599.0 URINARY TRACT INFECTION 09/21/2010 NEIDA TALBOT MD 599.0 URINARY TRACT INFECTION 09/21/2010 THONG AUTO CLOCKS REPAIRER, DWAINE T 599.0 URINARY TRACT INFECTION 09/21/2010 THONG AUTO CLOCKS REPAIRER, DWAINE T 599.0 URINARY TRACT INFECTION 09/21/2010 PRICE DO, GILBERTO K 599.0 URINARY TRACT INFECTION 09/21/2010 THONG AUTO CLOCKS REPAIRER, DWAINE T 599.0 URINARY TRACT INFECTION 09/21/2010 THONG AUTO CLOCKS REPAIRER, DWAINE T 599.0 URINARY TRACT INFECTION 09/21/2010 THONG AUTO CLOCKS REPAIRER, DWAINE T 599.0 URINARY TRACT INFECTION 09/21/2010 THONG AUTO CLOCKS REPAIRER, DWAINE T 599.0 URINARY TRACT INFECTION 09/21/2010 THONG AUTO CLOCKS REPAIRER, DWAINE T 599.0 URINARY TRACT INFECTION 09/21/2010 PRICE DO, GILBERTO K 599.0 URINARY TRACT INFECTION 09/21/2010 THONG AUTO CLOCKS REPAIRER, DWAINE T 599.0 URINARY TRACT INFECTION 09/21/2010 THONG AUTO CLOCKS REPAIRERDWAINE T 599.0 URINARY TRACT INFECTION 09/21/2010 THONG AUTO CLOCKS REPAIRER, DWAINE T 599.0 URINARY TRACT INFECTION 09/21/2010 THONG AUTO CLOCKS REPAIRER, DWAINE T 599.0 URINARY TRACT INFECTION 09/21/2010 THONG AUTO CLOCKS REPAIRER, DWAINE T 599.0 URINARY TRACT INFECTION 09/21/2010 THONG AUTO CLOCKS REPAIRER, DWAINE T 599.0 URINARY TRACT INFECTION 09/21/2010 THONG AUTO CLOCKS REPAIRER, DWAINE T 599.0 URINARY TRACT INFECTION 09/21/2010 THONG AUTO CLOCKS REPAIRER, DWAINE T 599.0 URINARY TRACT INFECTION 09/21/2010 THONG AUTO CLOCKS REPAIRER, DWAINE T 599.0 URINARY TRACT INFECTION 09/21/2010 THONG AUTO CLOCKS REPAIRER, DWAINE T 599.0 URINARY TRACT INFECTION 10/07/2010 [...] AND ABSCESS OF UNSPECIFIED SITES 11/08/2010 THONG AUTO CLOCKS REPAIRER, DWAINE T 682.9 CELLULITIS AND ABSCESS OF [...] AND ABSCESS OF UNSPECIFIED SITES 11/08/2010 DWAINE BENIOT APRN 682.9 CELLULITIS AND ABSCESS OF UNSPECIFIED [...] DX (3 YRS AND ABOVE, IM) 01/06/2011 NEIAD TALBOT MD V04.81 FLU DX (3 YRS [...] (3 YRS AND ABOVE, IM) 01/06/2011 RAYMOND MORIRSON, YE Robles V04.81 FLU DX (3 YRS [...] (3 YRS AND ABOVE, IM) 01/06/2011 THONG AUTO CLOCKS REPAIRER, DWAINE T V04.81 FLU DX (3 YRS AND ABOVE, IM) 01/06/2011 THONG AUTO CLOCKS REPAIRER, DWAINE T V04.81 FLU DX (3 YRS AND ABOVE, IM) 01/06/2011 THONG AUTO CLOCKS REPAIRER, DWAINE T V04.81 FLU DX (3 YRS [...] MD 780.4 DIZZINESS AND GIDDINESS 03/07/2011 THONG AUTO CLOCKS REPAIRER, DWAINE T 780.4 DIZZINESS AND GIDDINESS 03/07/2011 [...] T 780.4 DIZZINESS AND GIDDINESS 03/07/2011 THONG AUTO CLOCKS REPAIRER DWAINE T 780.4 DIZZINESS AND GIDDINESS 03/07/2011 THONG AUTO CLOCKS REPAIRERDWAINE Arredondo T 780.4 DIZZINESS AND GIDDINESS 03/07/2011 THONG AUTO CLOCKS REPAIRERDWAINE T 780.4 DIZZINESS AND GIDDINESS 03/07/2011 DWAINE BENITO APRN T 780.4 DIZZINESS AND GIDDINESS 03/07/2011 NEIDA TALBOT MD 780.4 DIZZINESS AND GIDDINESS 03/07/2011 780.4 DIZZINESS AND GIDDINESS 03/07/2011 THONG AUTO CLOCKS REPAIRERDWAINE Arredondo T 780.4 DIZZINESS AND GIDDINESS 03/07/2011 [...] T 780.4 DIZZINESS AND GIDDINESS 03/07/2011 DWAINE EBNITO APRN T 780.4 DIZZINESS AND GIDDINESS 03/07/2011 [...] BENITO APRN T 564.00 CONSTIPATION 07/23/2012 THONG AUTO CLOCKS REPAIRER, DWAINE T 564.00 CONSTIPATION 07/23/2012 THONG AUTO CLOCKS REPAIRER, DWAINE T 564.00 CONSTIPATION 07/23/2012 THONG AUTO CLOCKS REPAIRER, DWAINE T 564.00 CONSTIPATION 07/23/2012 THONG AUTO CLOCKS REPAIRER, DWAINE T 564.00 CONSTIPATION 07/23/2012 THONG AUTO CLOCKS REPAIRER, DWAINE T 564.00 CONSTIPATION 07/23/2012 YE ANDRADE MD 564.00 CONSTIPATION 07/23/2012 THONG AUTO CLOCKS REPAIRER, DWAINE T 564.00 CONSTIPATION 07/23/2012 THONG AUTO CLOCKS REPAIRER, DWAINE T 564.00 CONSTIPATION 07/23/2012 THONG AUTO CLOCKS REPAIRER, DWAINE T 564.00 CONSTIPATION 07/23/2012 THONG AUTO CLOCKS REPAIRER, DWAINE T 564.00 CONSTIPATION 07/23/2012 THONG AUTO CLOCKS REPAIRER, DWAINE T 564.00 CONSTIPATION 07/23/2012 THONG AUTO CLOCKS REPAIRER, DWAINE T 564.00 CONSTIPATION 07/23/2012 THONG AUTO CLOCKS REPAIRER, DWAINE T 564.00 CONSTIPATION 07/23/2012 THONG AUTO CLOCKS REPAIRER, DWAINE T 564.00 CONSTIPATION 07/23/2012 THONG AUTO CLOCKS REPAIRER, DWAINE T 564.00 CONSTIPATION 07/23/2012 NEIDA TALBOT MD 564.00 CONSTIPATION 07/23/2012 THONG AUTO CLOCKS REPAIRER, DWAINE T 564.00 CONSTIPATION 07/23/2012 THONG AUTO CLOCKS REPAIRER, DWAINE T 564.00 CONSTIPATION 07/23/2012 THONG AUTO CLOCKS REPAIRER, DWAINE T 564.00 CONSTIPATION 07/23/2012 THONG AUTO CLOCKS REPAIRER, DWAINE T 564.00 CONSTIPATION 07/23/2012 THONG AUTO CLOCKS REPAIRER, DWAINE T 564.00 CONSTIPATION 07/23/2012 THONG AUTO CLOCKS REPAIRER, DWAINE T 564.00 CONSTIPATION 07/23/2012 THONG AUTO CLOCKS REPAIRER, DWAINE T 564.00 CONSTIPATION 07/23/2012 NEIDA TALBOT MD 564.00 CONSTIPATION 07/23/2012 564.00 CONSTIPATION 07/23/2012 THONG AUTO CLOCKS REPAIRER, DWAINE T 564.00 CONSTIPATION 07/23/2012 THONG AUTO CLOCKS REPAIRER, DWAINE T 564.00 CONSTIPATION 07/23/2012 [employer]ONG [employer]S REPAIRER, DWAINE T 564.00 CONSTIPATION 07/23/2012 THONG [employer] CLOCKS REPAIRER, DWAINE T 564.00 CONSTIPATION 07/23/2012 THONG SAAVEDRAN, DWAINE T 564.00 CONSTIPATION 07/23/2012 NEIDA TALBOT MD 564.00 CONSTIPATION 07/23/2012 [employer]ONG [employer] CLOCKS REPAIRER, DWAINE T 564.00 CONSTIPATION 07/23/2012 [employer]ONG [employer]OCKS REPAIRER, DWAINE T 564.00 CONSTIPATION 07/23/2012 PRICE DO, GILBERTO K 564.00 CONSTIPATION 07/23/2012 [employer]S REPAIRER, DWAINE T 564.00 CONSTIPATION 07/23/2012 [employer]ONG [employer] CLOCKS REPAIRER, DWAINE T 564.00 CONSTIPATION 07/23/2012 THONG [employer] CLOCKS REPAIRER, DWAINE T 564.00 CONSTIPATION 07/23/2012 THONG [employer] CLOCKS REPAIRER, DWAINE T 564.00 CONSTIPATION 07/23/2012 PRICE DO, GILBERTO K 564.00 CONSTIPATION 07/23/2012 [employer]ONG [employer]OCKS REPAIRER, DWAINE T 564.00 CONSTIPATION 07/23/2012 THONG [employer] CLOCKS REPAIRER, DWAINE T 564.00 CONSTIPATION 07/23/2012 THONG [employer] CLOCKS REPAIRER, DWAINE T 564.00 CONSTIPATION 07/23/2012 THONG AUT[employer] CLOCKS REPAIRER, DWAINE T 564.00 CONSTIPATION 07/23/2012 THONG [employer] CLOCKS REPAIRER, DWAINE T 564.00 CONSTIPATION 07/23/2012 THONG AUT[employer] CLOCKS REPAIRER, DWAINE T 564.00 CONSTIPATION 07/23/2012 THONG [employer] CLOCKS REPAIRER, DWAINE T 564.00 CONSTIPATION 07/23/2012 THONG [employer] CLOCKS REPAIRER, DWAINE T 564.00 CONSTIPATION 07/23/2012 [employer]ONG [employer] CLOCKS REPAIRER, DWAINE T 564.00 CONSTIPATION 07/23/2012 THONG [employer] CL[employer]S REPAIRER, DWAINE T 564.00 CONSTIPATION 08/11/2012 E879.6 URINARY [...] MISADVENTURE AT TIME OF PROCED 08/11/2012 [employer] REPAIRER, DWAINE T E879.6 URINARY CATHETERIZATION THE CAUSE [...] NEIDA TALBOT MD 724.3 SCIATICA 09/13/2012 [employer]S REPAIRER, DWAINE T 724.3 SCIATICA 09/13/2012 [employer]ONG [employer] CLOCKS REPAIRER, DWAINE T 724.3 SCIATICA 09/13/2012 THONG [employer] CLOCKS REPAIRER, DWAINE T 724.3 SCIATICA 09/13/2012 THONG [employer] CLOCKS REPAIRER, DWAINE T 724.3 SCIATICA 09/13/2012 THONG [employer] CLOCKS REPAIRER, DWAINE T 724.3 SCIATICA 09/13/2012 THONG AUT[employer] CLOCKS REPAIRER, DWAINE T 724.3 SCIATICA 09/13/2012 THONG [employer] CLOCKS REPAIRER, DWAINE T 724.3 SCIATICA 09/13/2012 THONG AUT[employer] CLOCKS REPAIRER, DWAINE T 724.3 SCIATICA 09/13/2012 RAYMOND MORRISON, YE Robles 724.3 SCIATICA 09/13/2012 THONG [employer] CLOCKS REPAIRER, DWAINE T 724.3 SCIATICA 09/13/2012 THONG [employer] CLOCKS REPAIRER, DWAINE T 724.3 SCIATICA 09/13/2012 THONG [employer] CLOCKS REPAIRER, DWAINE T 724.3 SCIATICA 09/13/2012 THONG SAAVEDRAN, [...] SAAVEDRAN, DWAINE T 724.3 SCIATICA 09/13/2012 [employer]ONG [employer] CLOCKS REPAIRER, DWAINE T 724.3 SCIATICA 09/13/2012 THONG [employer] CLOCKS REPAIRER, DWAINE T 724.3 SCIATICA 09/13/2012 THONG SAAVEDRAN, [...] MORRISON, NEIDA V76.12 MAMMOGRAM SCREENING 11/30/2012 [employer]S REPAIRER, DWAINE T V76.12 MAMMOGRAM SCREENING 11/30/2012 [employer] CLOCKS REPAIRER, DWAINE T V76.12 MAMMOGRAM SCREENING 11/30/2012 [employer]ONG [employer] CLOCKS REPAIRER, DWAINE T V76.12 MAMMOGRAM SCREENING 11/30/2012 THONG AUT[employer] CLOCKS REPAIRER, DWAINE T V76.12 MAMMOGRAM SCREENING 11/30/2012 THONG [employer] CLOCKS REPAIRER, DWAINE T V76.12 MAMMOGRAM SCREENING 11/30/2012 THONG AUT[employer] CLOCKS REPAIRER, DWAINE T V76.12 MAMMOGRAM SCREENING 11/30/2012 THONG [employer] CLOCKS REPAIRER, DWAINE T V76.12 MAMMOGRAM SCREENING 11/30/2012 THONG AUT[employer] CLOCKS REPAIRER, DWAINE T V76.12 MAMMOGRAM SCREENING 11/30/2012 RAYMOND MORRISON, YE Robles V76.12 MAMMOGRAM SCREENING 11/30/2012 THONG [employer] CLOCKS REPAIRER, DWAINE T V76.12 MAMMOGRAM SCREENING 11/30/2012 THONG AUT[employer] CLOCKS REPAIRER, DWAINE T V76.12 MAMMOGRAM SCREENING 11/30/2012 THONG AUT[employer] CLOCKS REPAIRER, DWAINE T V76.12 MAMMOGRAM SCREENING 11/30/2012 THONG AUT[employer] CLOCKS REPAIRER, DWAINE T V76.12 MAMMOGRAM SCREENING 11/30/2012 THONG AUT[employer] CLOCKS REPAIRER, DWAINE T V76.12 MAMMOGRAM SCREENING 11/30/2012 THONG AUT[employer] CLOCKS REPAIRER, DWAINE T V76.12 MAMMOGRAM SCREENING 11/30/2012 THONG [employer] CLOCKS REPAIRER, DWAINE T V76.12 MAMMOGRAM SCREENING 11/30/2012 THONG AUT[employer] CLOCKS REPAIRER, DWAINE T V76.12 MAMMOGRAM SCREENING 11/30/2012 THONG [employer] CLOCKS REPAIRER, DWAINE T V76.12 MAMMOGRAM SCREENING 11/30/2012 ANTIONE MORRISON, NEIDA V76.12 MAMMOGRAM SCREENING 11/30/2012 THONG [employer] CLOCKS REPAIRER, DWAINE T V76.12 MAMMOGRAM SCREENING 11/30/2012 THONG AUT[employer] CLOCKS REPAIRER, DWAINE T V76.12 MAMMOGRAM SCREENING 11/30/2012 THONG [employer] CLOCKS REPAIRER, DWAINE T V76.12 MAMMOGRAM SCREENING 11/30/2012 THONG [employer] CLOCKS REPAIRER, DWAINE T V76.12 MAMMOGRAM SCREENING 11/30/2012 THONG AUT[employer] CLOCKS REPAIRER, DWAINE T V76.12 MAMMOGRAM SCREENING 11/30/2012 THONG [employer] CLOCKS REPAIRER, DWAINE T V76.12 MAMMOGRAM SCREENING 11/30/2012 THONG [employer] CLOCKS REPAIRER, DWAINE T V76.12 MAMMOGRAM SCREENING 11/30/2012 ANTIONE MORRISON, NEIDA V76.12 MAMMOGRAM SCREENING 11/30/2012 V76.12 MAMMOGRAM SCREENING 11/30/2012 THONG AUTO CLOCKS REPAIRER, DWAINE T V76.12 MAMMOGRAM SCREENING 11/30/2012 THONG AUT[employer] CLOCK[employer] REPAIRER, DWAINE T V76.12 MAMMOGRAM SCREENING 11/30/2012 THONG AUTO CLOCKS REPAIRER, DWAINE T V76.12 MAMMOGRAM SCREENING 11/30/2012 THONG AUTO CLOCKS REPAIRER, DWAINE T V76.12 MAMMOGRAM SCREENING 11/30/2012 THONG AUT[employer] CLOCKS REPAIRER, DWAINE T V76.12 MAMMOGRAM SCREENING 11/30/2012 ANTIONE MORRISON, NEIDA V76.12 MAMMOGRAM SCREENING 11/30/2012 THONG AUT[employer] CLOCK[employer] REPAIRER, DWAINE T V76.12 MAMMOGRAM SCREENING 11/30/2012 THONG AUTO CLOCKS REPAIRER, DWAINE T V76.12 MAMMOGRAM SCREENING 11/30/2012 PRICE DO, GILBERTO K V76.12 MAMMOGRAM SCREENING 11/30/2012 THONG AUT[employer] CLOCKS REPAIRER, DWAINE T V76.12 MAMMOGRAM SCREENING 11/30/2012 THONG AUTO CLOCKS REPAIRER, DWAINE T V76.12 MAMMOGRAM SCREENING 11/30/2012 THONG AUTO CLOCKS REPAIRER, DWAINE T V76.12 MAMMOGRAM SCREENING 11/30/2012 THONG AUTO CLOCKS REPAIRER, DWAINE T V76.12 MAMMOGRAM SCREENING 11/30/2012 PRICE DO, GILBERTO K V76.12 MAMMOGRAM SCREENING 11/30/2012 THONG AUT[employer] CLOCKS REPAIRER, DWAINE T V76.12 MAMMOGRAM SCREENING 11/30/2012 THONG AUTO CLOCKS REPAIRER, DWAINE T V76.12 MAMMOGRAM SCREENING 11/30/2012 THONG AUTO CLOCKS REPAIRER, DWAINE T V76.12 MAMMOGRAM SCREENING 11/30/2012 THONG AUTO CLOCKS REPAIRER, DWAINE T V76.12 MAMMOGRAM SCREENING 11/30/2012 THONG AUTO CLOCKS REPAIRER, DWAINE T V76.12 MAMMOGRAM SCREENING 11/30/2012 THONG AUTO CLOCKS REPAIRER, DWAINE T V76.12 MAMMOGRAM SCREENING 11/30/2012 THONG AUTO CLOCKS REPAIRER, DWAINE T V76.12 MAMMOGRAM SCREENING 11/30/2012 THONG AUTO CLOCKS REPAIRER, DWAINE T V76.12 MAMMOGRAM SCREENING 11/30/2012 THONG AUTO CLOCKS REPAIRER, DWAINE T V76.12 MAMMOGRAM SCREENING 11/30/2012 THONG AUTO CLOCKS REPAIRER, DWAINE T V76.12 MAMMOGRAM SCREENING 01/27/2013 NEIDA TALBOT MD 465.9 UPPER RESPIRATORY INFECTION 01/27/2013 THONG HODGES, DWAINE Rushing 465.9 UPPER RESPIRATORY INFECTION 01/27/2013 HUERTER MD, NEIDA 465.9 UPPER RESPIRATORY INFECTION 01/27/2013 THONG AUTO CLOCKS REPAIRER, DWAINE T 465.9 UPPER RESPIRATORY INFECTION 01/27/2013 NEIDA TALBOT MD 465.9 UPPER RESPIRATORY INFECTION 01/27/2013 THONG AUTO CLOCKS REPAIRER, DWAINE T 465.9 UPPER RESPIRATORY INFECTION 01/27/2013 THONG AUTO CLOCKS REPAIRER, DWAINE T 465.9 UPPER RESPIRATORY INFECTION 01/27/2013 THONG AUTO CLOCKS REPAIRER, DWAINE T 465.9 UPPER RESPIRATORY INFECTION 01/27/2013 THONG AUTO CLOCKS REPAIRER, DWAINE T 465.9 UPPER RESPIRATORY INFECTION 01/27/2013 THONG AUTO CLOCKS REPAIRER, DWAINE T 465.9 UPPER RESPIRATORY INFECTION 01/27/2013 THONG AUTO CLOCKS REPAIRER, DWAINE T 465.9 UPPER RESPIRATORY INFECTION 01/27/2013 THONG AUTO CLOCKS REPAIRER, DWAINE T 465.9 UPPER RESPIRATORY INFECTION 01/27/2013 THONG AUTO CLOCKS REPAIRER, DWAINE T 465.9 UPPER RESPIRATORY INFECTION 01/27/2013 RAYMOND MORRISON, YE Robles 465.9 UPPER RESPIRATORY INFECTION 01/27/2013 THONG AUTO CLOCKS REPAIRER, DWAINE T 465.9 UPPER RESPIRATORY INFECTION 01/27/2013 THONG AUTO CLOCKS REPAIRER, DWAINE T 465.9 UPPER RESPIRATORY INFECTION 01/27/2013 THONG AUTO CLOCKS REPAIRER, DWAINE T 465.9 UPPER RESPIRATORY INFECTION 01/27/2013 THONG AUTO CLOCKS REPAIRER, DWAINE T 465.9 UPPER RESPIRATORY INFECTION 01/27/2013 THONG AUTO CLOCKS REPAIRER, DWAINE T 465.9 UPPER RESPIRATORY INFECTION 01/27/2013 THONG AUTO CLOCKS REPAIRER, DWAINE T 465.9 UPPER RESPIRATORY INFECTION 01/27/2013 THONG AUTO CLOCKS REPAIRER, DWAINE T 465.9 UPPER RESPIRATORY INFECTION 01/27/2013 THONG AUTO CLOCKS REPAIRER, DWAINE T 465.9 UPPER RESPIRATORY INFECTION 01/27/2013 THONG AUTO CLOCKS REPAIRER, DWAINE T 465.9 UPPER RESPIRATORY INFECTION 01/27/2013 NEIDA TALBOT MD 465.9 UPPER RESPIRATORY INFECTION 01/27/2013 THONG AUTO CLOCKS REPAIRER, DWAINE T 465.9 UPPER RESPIRATORY INFECTION 01/27/2013 THONG AUTO CLOCKS REPAIRER, DWAINE T 465.9 UPPER RESPIRATORY INFECTION 01/27/2013 THONG AUTO CLOCKS REPAIRER, DWAINE T 465.9 UPPER RESPIRATORY INFECTION 01/27/2013 THONG AUTO CLOCKS REPAIRER, DWAINE T 465.9 UPPER RESPIRATORY INFECTION 01/27/2013 THONG AUTO CLOCKS REPAIRER, DWAINE T 465.9 UPPER RESPIRATORY INFECTION 01/27/2013 THONG AUTO CLOCKS REPAIRER, DWAINE T 465.9 UPPER RESPIRATORY INFECTION 01/27/2013 THONG AUTO CLOCKS REPAIRER, DWAINE T 465.9 UPPER RESPIRATORY INFECTION 01/27/2013 NEIDA TALBOT MD 465.9 UPPER RESPIRATORY INFECTION 01/27/2013 465.9 UPPER RESPIRATORY INFECTION 01/27/2013 THONG AUTO CLOCKS REPAIRER, DWAINE T 465.9 UPPER RESPIRATORY INFECTION 01/27/2013 THONG AUTO CLOCKS REPAIRER, DWAINE T 465.9 UPPER RESPIRATORY INFECTION 01/27/2013 THONG AUTO CLOCKS REPAIRER, DWAINE T 465.9 UPPER RESPIRATORY INFECTION 01/27/2013 THONG AUTO CLOCKS REPAIRER, DWAINE T 465.9 UPPER RESPIRATORY INFECTION 01/27/2013 THONG AUTO CLOCKS REPAIRER, DWAINE T 465.9 UPPER RESPIRATORY INFECTION 01/27/2013 NEIDA TALBOT MD 465.9 UPPER RESPIRATORY INFECTION 01/27/2013 THONG AUTO CLOCKS REPAIRER, DWAINE T 465.9 UPPER RESPIRATORY INFECTION 01/27/2013 THONG AUTO CLOCKS REPAIRER, DWAINE T 465.9 UPPER RESPIRATORY INFECTION 01/27/2013 PRICE DO, GILBERTO K 465.9 UPPER RESPIRATORY INFECTION 01/27/2013 THONG AUTO CLOCKS REPAIRER, DWAINE T 465.9 UPPER RESPIRATORY INFECTION 01/27/2013 THONG AUTO CLOCKS REPAIRER, DWAINE T 465.9 UPPER RESPIRATORY INFECTION 01/27/2013 THONG AUTO CLOCKS REPAIRER, DWAINE T 465.9 UPPER RESPIRATORY INFECTION 01/27/2013 THONG AUTO CLOCKS REPAIRER, DWAINE T 465.9 UPPER RESPIRATORY INFECTION 01/27/2013 PRICE DO, GILBERTO K 465.9 UPPER RESPIRATORY INFECTION 01/27/2013 THONG AUTO CLOCKS REPAIRER, DWAINE T 465.9 UPPER RESPIRATORY INFECTION 01/27/2013 THONG AUTO CLOCKS REPAIRER, DWAINE T 465.9 UPPER RESPIRATORY INFECTION 01/27/2013 THONG AUTO CLOCKS REPAIRER, DWAINE T 465.9 UPPER RESPIRATORY INFECTION 01/27/2013 THONG AUTO CLOCKS REPAIRER, DWAINE T 465.9 UPPER RESPIRATORY INFECTION 01/27/2013 THONG AUTO CLOCKS REPAIRER, DWAINE T 465.9 UPPER RESPIRATORY INFECTION 01/27/2013 THONG AUTO CLOCKS REPAIRER, DWAINE T 465.9 UPPER RESPIRATORY INFECTION 01/27/2013 THONG AUTO CLOCKS REPAIRER, DWAINE T 465.9 UPPER RESPIRATORY INFECTION 01/27/2013 THONG AUTO CLOCKS REPAIRER, DWAINE T 465.9 UPPER RESPIRATORY INFECTION 01/27/2013 THONG AUTO CLOCKS REPAIRER, DWAINE T 465.9 UPPER RESPIRATORY INFECTION 01/27/2013 THONG AUTO CLOCKS REPAIRER, DWAINE T 465.9 UPPER RESPIRATORY INFECTION 06/14/2013 YE ANDRADE MD 355.9 NEUROPATHY 06/14/2013 YE ANDRADE MD 788.1 pain during urination (dysuria) 06/14/2013 DWAINE BENITO APRN T 355.9 NEUROPATHY 06/14/2013 THONG HODGES DWAINE T 788.1 pain during urination (dysuria) 06/14/2013 THONG AUTO CLOCKS REPAIRER, DWAINE T 355.9 NEUROPATHY 06/14/2013 THONG AUTO CLOCKS REPAIRER, DWAINE T 788.1 DYSURIA 06/14/2013 THONG AUTO CLOCKS REPAIRER, DWAINE T 355.9 NEUROPATHY 06/14/2013 THONG AUTO CLOCKS REPAIRER, DWAINE T 788.1 DYSURIA 06/14/2013 THONG AUTO CLOCKS REPAIRER, DWAINE T 355.9 NEUROPATHY 06/14/2013 THONG AUTO CLOCKS REPAIRER, DWAINE T 788.1 DYSURIA 06/14/2013 THONG AUTO CLOCKS REPAIRER, DWAINE T 355.9 NEUROPATHY 06/14/2013 THONG AUTO CLOCKS REPAIRER, DWAINE T 788.1 DYSURIA 06/14/2013 THONG AUTO CLOCKS REPAIRER, DWAINE T 355.9 NEUROPATHY 06/14/2013 THONG AUTO CLOCKS REPAIRER, DWAINE T 788.1 DYSURIA 06/14/2013 THONG AUTO CLOCKS REPAIRER, DWAINE T 355.9 NEUROPATHY 06/14/2013 THONG AUTO CLOCKS REPAIRER, DWAINE T 788.1 DYSURIA 06/14/2013 THONG AUTO CLOCKS REPAIRER, DWAINE T 355.9 NEUROPATHY 06/14/2013 THONG AUTO CLOCKS REPAIRER, DWAINE T 788.1 DYSURIA 06/14/2013 THONG AUTO CLOCKS REPAIRER, DWAINE T 355.9 NEUROPATHY 06/14/2013 THONG AUTO CLOCKS REPAIRER, DWAINE T 788.1 DYSURIA 06/14/2013 NEIDA TALBOT MD 355.9 NEUROPATHY 06/14/2013 NEIDA TALBOT MD 788.1 DYSURIA 06/14/2013 THONG AUTO CLOCKS REPAIRER, DWAINE T 355.9 NEUROPATHY 06/14/2013 THONG AUTO CLOCKS REPAIRER, DWAINE T 788.1 DYSURIA 06/14/2013 THONG AUTO CLOCKS REPAIRER, DWAINE T 355.9 NEUROPATHY 06/14/2013 THONG AUTO CLOCKS REPAIRER, DWAINE T 788.1 DYSURIA 06/14/2013 THONG AUTO CLOCKS REPAIRER, DWAINE T 355.9 NEUROPATHY 06/14/2013 THONG AUTO CLOCKS REPAIRER, DWAINE T 788.1 DYSURIA 06/14/2013 THONG AUTO CLOCKS REPAIRER, DWAINE T 355.9 NEUROPATHY 06/14/2013 THONG AUTO CLOCKS REPAIRER, DWAINE T 788.1 DYSURIA 06/14/2013 THONG AUTO CLOCKS REPAIRER, DWAINE T 355.9 NEUROPATHY 06/14/2013 THONG AUTO CLOCKS REPAIRER, DWAINE T 788.1 DYSURIA 06/14/2013 THONG AUTO CLOCKS REPAIRER, DWAINE T 355.9 NEUROPATHY 06/14/2013 THONG AUTO CLOCKS REPAIRER, DWAINE T 788.1 DYSURIA 06/14/2013 THONG AUTO CLOCKS REPAIRER, DWAINE T 355.9 NEUROPATHY 06/14/2013 THONG AUTO CLOCKS REPAIRER, DWAINE T 788.1 DYSURIA 06/14/2013 NEIDA TALBOT MD 355.9 NEUROPATHY 06/14/2013 NEIDA TALBOT MD 788.1 DYSURIA 06/14/2013 355.9 NEUROPATHY 06/14/2013 788.1 DYSURIA 06/14/2013 THONG AUTO CLOCKS REPAIRER, DWAINE T 355.9 NEUROPATHY 06/14/2013 THONG AUTO CLOCKS REPAIRER, DWAINE T 788.1 DYSURIA 06/14/2013 THONG AUTO CLOCKS REPAIRER, DWAINE T 355.9 NEUROPATHY 06/14/2013 THONG AUTO CLOCKS REPAIRER, DWAINE T 788.1 DYSURIA 06/14/2013 THONG AUTO CLOCKS REPAIRER, DWAINE T 355.9 NEUROPATHY 06/14/2013 THONG AUTO CLOCKS REPAIRER, DWAINE T 788.1 DYSURIA 06/14/2013 THONG SAAVEDRAN, DWAINE T 355.9 NEUROPATHY 06/14/2013 THONG AUTO CLOCKS REPAIRER, DWAINE T 788.1 DYSURIA 06/14/2013 DWAINE BENITO APRN T 355.9 NEUROPATHY 06/14/2013 DWAINE BENITO APRN T 788.1 DYSURIA 06/14/2013 NEIDA TALBOT MD 355.9 NEUROPATHY 06/14/2013 NEIDA TALBOT MD 788.1 DYSURIA 06/14/2013 THONG SAAVEDRAN, DWAINE T 355.9 NEUROPATHY 06/14/2013 THONG HODGES, DWAINE T 788.1 DYSURIA 06/14/2013 DWAINE BENITO APRN T 355.9 NEUROPATHY 06/14/2013 THONG AUTO CLOCKS REPAIRERDWAINE Arredondo T 788.1 DYSURIA 06/14/2013 PRICE DO, GILBERTO K 355.9 NEUROPATHY 06/14/2013 PRICE DO, GILBERTO K 788.1 DYSURIA 06/14/2013 THONG SAAVEDRANDWAINE T 355.9 NEUROPATHY 06/14/2013 THONG AUTO CLOCKS REPAIRERDWAINE T 788.1 DYSURIA 06/14/2013 THONG AUTO CLOCKS REPAIRER, DWAINE T 355.9 NEUROPATHY 06/14/2013 THONG AUTO CLOCKS REPAIRER, DWAINE T 788.1 DYSURIA 06/14/2013 THONG AUTO CLOCKS REPAIRERDWAINE T 355.9 NEUROPATHY 06/14/2013 THONG AUTO CLOCKS REPAIRER, DWAINE T 788.1 DYSURIA 06/14/2013 THONG AUTO CLOCKS REPAIRERDWAINE Arredondo T 355.9 NEUROPATHY 06/14/2013 DWAINE BENITO APRN T 788.1 DYSURIA 06/14/2013 PRICE DO, GILBERTO K 355.9 NEUROPATHY 06/14/2013 PRICE DO, GILBERTO K 788.1 DYSURIA 06/14/2013 THONG AUTO CLOCKS REPAIRER, DWAINE T 355.9 NEUROPATHY 06/14/2013 THONG AUTO CLOCKS REPAIRER, DWAINE T 788.1 DYSURIA 06/14/2013 THONG AUTO CLOCKS REPAIRER, DWAINE T 355.9 NEUROPATHY 06/14/2013 THONG AUTO CLOCKS REPAIRER, DWAINE T 788.1 DYSURIA 06/14/2013 THONG AUTO CLOCKS REPAIRER, DWAINE T 355.9 NEUROPATHY 06/14/2013 THONG AUTO CLOCKS REPAIRERDWAINE T 788.1 DYSURIA 06/14/2013 THONG AUTO CLOCKS REPAIRERDWAINE T 355.9 NEUROPATHY 06/14/2013 THONG AUTO CLOCKS REPAIRER, DWAINE T 788.1 DYSURIA 06/14/2013 THONG AUTO CLOCKS REPAIRERDWAINE T 355.9 NEUROPATHY 06/14/2013 THONG AUTO CLOCKS REPAIRERDWAINE T 788.1 DYSURIA 06/14/2013 THONG AUTO CLOCKS REPAIRERDWAINE T 355.9 NEUROPATHY 06/14/2013 THONG AUTO CLOCKS REPAIRERDWAINE T 788.1 DYSURIA 06/14/2013 THONG AUTO CLOCKS REPAIRERDWAINE T 355.9 NEUROPATHY 06/14/2013 THONG AUTO CLOCKS REPAIRERDWAINE T 788.1 DYSURIA 06/14/2013 THONG AUTO CLOCKS REPAIRERDWAINE T 355.9 NEUROPATHY 06/14/2013 THONG AUTO CLOCKS REPAIRERDWAINE T 788.1 DYSURIA 06/14/2013 THONG AUTO CLOCKS REPAIRERDWAINE T 355.9 NEUROPATHY 06/14/2013 THONG AUTO CLOCKS REPAIRERDWAINE T 788.1 DYSURIA 06/14/2013 THONG AUTO CLOCKS REPAIRERDWAINE T 355.9 NEUROPATHY 06/14/2013 THONG AUTO CLOCKS REPAIRERDWAINE T 788.1 DYSURIA 06/27/2013 DWAINE BENITO APRN [...] AND ABSCESS OF UNSPECIFIED SITES 11/09/2013 THONG AUTO CLOCKS REPAIRER, DWAINE T 682.9 CELLULITIS AND ABSCESS OF UNSPECIFIED SITES 11/09/2013 THONG AUTO CLOCKS REPAIRERDWAINE T 682.9 CELLULITIS AND ABSCESS OF UNSPECIFIED [...] SAAVEDRAN, DWAINE T 564.00 CONSTIPATION 01/16/2014 THONG AUTO CLOCKS REPAIRER, DWAINE T 564.00 CONSTIPATION 01/16/2014 THONG AUTO CLOCKS REPAIRER, DWAINE T 564.00 CONSTIPATION 01/16/2014 THONG SAAVEDRAN, DWAINE T 564.00 CONSTIPATION 01/16/2014 PRICE DOERNESTOA K 564.00 CONSTIPATION 01/16/2014 THONG AUTO CLOCKS REPAIRER, DWAINE T 564.00 CONSTIPATION 01/16/2014 THONG AUTO CLOCKS REPAIRER, DWAINE T 564.00 CONSTIPATION 01/16/2014 THONG AUTO CLOCKS REPAIRER, DWAINE T 564.00 CONSTIPATION 01/16/2014 THONG AUTO CLOCKS REPAIRER, DWAINE T 564.00 CONSTIPATION 01/16/2014 THONG AUTO CLOCKS REPAIRER, DWAINE T 564.00 CONSTIPATION 01/16/2014 THONG AUTO CLOCKS REPAIRER, DWAINE T 564.00 CONSTIPATION 01/16/2014 THONG AUTO CLOCKS REPAIRER, DWAINE T 564.00 CONSTIPATION 01/16/2014 THONG AUTO CLOCKS REPAIRER, DWAINE T 564.00 CONSTIPATION 01/16/2014 THONG AUTO CLOCKS REPAIRER, DWAINE T 564.00 CONSTIPATION 01/16/2014 THONG AUTO CLOCKS REPAIRER, WDAINE T 564.00 CONSTIPATION 02/25/2014 DWAINE BENITO APRN T 465.9 UPPER RESPIRATORY INFECTION 02/25/2014 DWAINE BENITO APRN T 465.9 UPPER RESPIRATORY INFECTION 02/25/2014 PRICE DO, GILBERTO K 465.9 UPPER RESPIRATORY INFECTION 02/25/2014 THONG SAAVEDRANDWAINE T 465.9 UPPER RESPIRATORY INFECTION 02/25/2014 DWAINE BENITO APRN T 465.9 UPPER RESPIRATORY INFECTION 02/25/2014 THONG AUTO CLOCKS REPAIRER, DWAINE T 465.9 UPPER RESPIRATORY INFECTION 02/25/2014 THONG AUTO CLOCKS REPAIRER, DWAINE T 465.9 UPPER RESPIRATORY INFECTION 02/25/2014 THONG AUTO CLOCKS REPAIRER, DWAINE T 465.9 UPPER RESPIRATORY INFECTION 02/25/2014 THONG AUTO CLOCKS REPAIRER, DWAINE T 465.9 UPPER RESPIRATORY INFECTION 02/25/2014 THONG AUTO CLOCKS REPAIRER, DWAINE T 465.9 UPPER RESPIRATORY INFECTION 02/25/2014 THONG AUTO CLOCKS REPAIRER, DWAINE T 465.9 UPPER RESPIRATORY INFECTION 02/25/2014 THONG AUTO CLOCKS REPAIRER, DWAINE T 465.9 UPPER RESPIRATORY INFECTION 02/25/2014 THONG AUTO CLOCKS REPAIRER, DWAINE T 465.9 UPPER RESPIRATORY INFECTION 02/27/2014 [...] APOLLO Castillo Ot 719.45 02/27/2014 DWAINE BENITO SPOOL WINDER Ot 707.05 02/27/2014 DWAINE BENITO SPOOL WINDER Ot 707.20 03/02/2014 GILBERTO PRICE DO K [...] NEUROPATHY 07/19/2015 SHIRLEY KIRKPATRICK MD Ot T83.098A [facility] COMPL OF OTH INDWELLING URETHRAL CA [...] VICENTE MORRISON MAIKEL A Ot Z79.899 OTHER SALES REPRESENTATIVE PRINTING SUPPLIES (CURRENT) DRUG THERAPY 01/31/2016 MAIKEL ZHANG MD [...] VICENTE MORRISON MAIKEL A Ot Z79.899 OTHER SALES REPRESENTATIVE PRINTING SUPPLIES (CURRENT) DRUG THERAPY 02/05/2016 MAIKEL ZHANG MD [...] VICENTE MORRISON MAIKEL A Ot Z79.899 OTHER SALES REPRESENTATIVE PRINTING SUPPLIES (CURRENT) DRUG THERAPY 02/07/2016 JOVAN CASON MD [...] CATH 04/26/2016 ALYSIA CASTRO MD Ot Z79.84 SALES REPRESENTATIVE PRINTING SUPPLIES (CURRENT) USE OF ORAL HYPOGLYC 04/28/2016 ALYSIA [...] CATHET 05/20/2016 HONG SMART MD, Ot Z79.84 SALES REPRESENTATIVE PRINTING SUPPLIES (CURRENT) USE OF ORAL HYPOGLYC 05/20/2016 HONG SMART MD Ot Z91.19 PATIENT'S NONCOMPLIANCE W [facility] TR 09/21/2016 SHIRLEY KIRKPATRICK [...] HISTORY OF URINARY CALCULI 09/25/2016 DWAINE BENITO SPOOL WINDER Ot N39.0 URINARY TRACT INFECTION, SITE NOT SPECIF 09/25/2016 DWAINE BENITO SPOOL WINDER Ot N39.0 URINARY TRACT INFECTION, SITE NOT SPECIF 09/25/2016 DWAINE BENITO SPOOL WINDER Ot N39.0 URINARY TRACT INFECTION, SITE NOT SPECIF 09/26/2016 DWAINE BENITO SPOOL WINDER Ot N39.0 URINARY TRACT INFECTION, SITE NOT SPECIF 09/27/2016 SHIRLEY KIRKPATRICK MD, Ot E11.9 TYPE 2 DIABETES MELLITUS WITHOUT COMPLIC 09/27/2016 SHIRLEY KIRKPATRICK MD, Ot F17.210 NICOTINE DEPENDENCE, CIGARETTES, UNCOMPL 09/27/2016 SHIRLEY KIRKPATRICK MD, Ot N39.0 URINARY TRACT INFECTION, SITE NOT SPECIF 09/27/2016 SHIRLEY KIRKPATRICK MD, Ot Z79.84 SALES REPRESENTATIVE PRINTING SUPPLIES (CURRENT) USE OF ORAL HYPOGLYC 09/27/2016 HSIRLEY KIRKPATRICK MD Ot Z87.442 PERSONAL HISTORY OF URINARY CALCULI 09/27/2016 DWAINE BENITO SPOOL WINDER Ot N39.0 URINARY TRACT INFECTION, SITE NOT SPECIF 09/27/2016 DWAINE BENITO SPOOL WINDER Ot N39.0 URINARY TRACT INFECTION, SITE NOT SPECIF 09/28/2016 DWAINE BENITO SPOOL WINDER Ot N39.0 URINARY TRACT INFECTION, SITE NOT SPECIF 09/28/2016 DWAINE BENITO SPOOL WINDER Ot N39.0 URINARY TRACT INFECTION, SITE NOT SPECIF 09/28/2016 THONGDWAINE SPOOL WINDER Ot N39.0 URINARY TRACT INFECTION, SITE NOT SPECIF 09/29/2016 THONGDWAINE SPOOL WINDER Ot N39.0 URINARY TRACT INFECTION, SITE NOT SPECIF 09/29/2016 THONGDWAINE SPOOL WINDER Ot N39.0 URINARY TRACT INFECTION, SITE NOT SPECIF 09/30/2016 DWAINE BENITO SPOOL WINDER Ot N39.0 URINARY TRACT INFECTION, SITE NOT [...] SMO 10/18/2016 BEST MCKEE MD Ot Z79.84 SALES REPRESENTATIVE PRINTING SUPPLIES (CURRENT) USE OF ORAL HYPOGLYC 10/18/2016 BEST [...] INFECTION, SITE NOT SPECIF 12/23/2016 DWAINE BENITO SPOOL WINDER Ot N39.0 URINARY TRACT INFECTION, SITE NOT [...] PAIN 12/29/2016 ALYSIA CASTRO MD Ot Z79.84 SALES REPRESENTATIVE PRINTING SUPPLIES (CURRENT) USE OF ORAL HYPOGLYC 12/29/2016 ALYSIA [...] OF OTHER DISEASES OF TH 01/12/2017 DINAH CNOTEH DO Ot Z87.448 PERSONAL HISTORY OF OTHER [...] SPECIF 01/14/2017 DINAH CONTEH DO Ot Z79.84 DETENTION (CURRENT) USE OF ORAL HYPOGLYC 01/14/2017 DINAH CONTEH DO Ot Z80.3 FAMILY HISTORY OF MALIGNANT NEOPLASM OF 01/14/2017 DINAH CONTEH DO Ot Z87.01 PERSONAL HISTORY OF PNEUMONIA (RECURRENT 01/14/2017 DINAH CONTEH DO Ot Z87.19 PERSONAL HISTORY OF OTHER DISEASES OF TH 01/14/2017 DINAH CONTEH DO Ot Z87.448 PERSONAL HISTORY [...] PRESENCE OF OTHER BONE AND TENDON IMPLAN 04/22/2017 JOVAN CASON MD Ot F17.210 NICOTINE DEPENDENCE, CIGARETTES, UNCOMPL 04/22/2017 JOVAN CASON MD Ot F32.9 MAJOR DEPRESSIVE DISORDER, SINGLE EPISOD 04/22/2017 JOAVN CASON MD Ot 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 MOTOR AND SENSORY NEUROPATHY 04/22/2017 JOVAN CASON MD Ot G89.29 OTHER CHRONIC PAIN 04/22/2017 JOVAN CASON MD Ot K59.03 DRUG INDUCED CONSTIPATION 04/22/2017 JOVAN CASON MD Ot L89.219 PRESSURE ULCER OF RIGHT HIP, UNSPECIFIED 04/22/2017 JOVAN CASON MD, Ot M54.9 DORSALGIA, UNSPECIFIED 04/22/2017 JOVAN CASON MD, Ot N39.0 URINARY TRACT INFECTION, SITE NOT SPECIF 04/22/2017 JOVAN CASON MD, Ot R05 COUGH 04/22/2017 JOVAN CASON MD, Ot T40.2X5A ADVERSE EFFECT OF OTHER OPIOIDS, INITIAL 04/22/2017 JOVAN CASON MD, Ot T83.511A I/I REACT D/T INDWELLING URETHRAL CATHET 04/22/2017 JOVAN CASON MD, Ot Z79.84 SALES REPRESENTATIVE PRINTING SUPPLIES (CURRENT) USE OF ORAL HYPOGLYC 04/22/2017 JOVAN CASON MD, Ot 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 04/22/2017 JOVAN CASON MD, Ot Z87.442 PERSONAL HISTORY OF URINARY CALCULI 04/22/2017 JOVAN CASON MD, Ot Z99.3 DEPENDENCE ON WHEELCHAIR 04/23/2017 ALYSIA CASTRO MD Ot E11.9 TYPE 2 DIABETES MELLITUS WITHOUT COMPLIC 04/23/2017 ALYSIA CASTRO MD Ot F17.210 NICOTINE DEPENDENCE, CIGARETTES, UNCOMPL 04/23/2017 ALYSIA CASTRO MD Ot F41.9 ANXIETY DISORDER, UNSPECIFIED 04/23/2017 ALYSIA CASTRO MD Ot J10.1 FLU DUE TO OTH IDENT INFLUENZA VIRUS W O 04/23/2017 ALYSIA CASTRO MD Ot M81.0 AGE-RELATED OSTEOPOROSIS W/O CURRENT PAT 04/23/2017 ALYSIA CASTRO MD Ot R06.02 SHORTNESS OF BREATH 04/23/2017 ALYSIA CASTRO MD Ot Z79.84 DETENTION (CURRENT) USE OF ORAL HYPOGLYC 04/23/2017 ALYSIA CASTRO MD Ot Z80.3 FAMILY HISTORY OF MALIGNANT NEOPLASM OF 04/23/2017 ALYSIA CASTRO MD Ot Z87.01 PERSONAL HISTORY OF PNEUMONIA (RECURRENT 04/23/2017 ALYSIA CASTRO MD Ot Z87.19 PERSONAL HISTORY OF OTHER DISEASES OF 04/23/2017 ALYSIA CASTRO MD Ot Z87.448 PERSONAL HISTORY OF OTHER DISEASES OF UR 04/23/2017 ALYSIA CASTRO MD Ot Z98.1 ARTHRODESIS STATUS 04/24/2017 ALYSIA CASTRO MD, Ot E11.9 TYPE 2 DIABETES MELLITUS WITHOUT COMPLIC 04/24/2017 ALYSIA CASTRO MD, Ot F17.210 NICOTINE DEPENDENCE, CIGARETTES, UNCOMPL 04/24/2017 ALYSIA CASTRO MD Ot F41.9 ANXIETY DISORDER, UNSPECIFIED 04/24/2017 ALYSIA CASTRO MD, Ot J10.1 FLU DUE TO OTH IDENT INFLUENZA VIRUS W O 04/24/2017 ALYSIA CASTRO MD Ot M81.0 AGE-RELATED OSTEOPOROSIS W/O CURRENT PAT 04/24/2017 ALYSIA CASTRO MD Ot R06.02 SHORTNESS OF BREATH 04/24/2017 ALYSIA CASTRO MD Ot Z79.84 DETENTION (CURRENT) USE OF ORAL HYPOGLYC 04/24/2017 ALYSIA CASTRO MD Ot Z80.3 FAMILY HISTORY OF MALIGNANT NEOPLASM OF 04/24/2017 ALYSIA CASTRO MD, Ot Z87.01 PERSONAL HISTORY OF PNEUMONIA (RECURRENT 04/24/2017 ALYSIA CASTRO MD, Ot Z87.19 PERSONAL HISTORY OF OTHER DISEASES OF TH 04/24/2017 ALYSIA CASTRO MD Ot Z87.448 PERSONAL HISTORY OF OTHER DISEASES OF UR 04/24/2017 ALYSIA CASTRO MD Ot Z98.1 ARTHRODESIS STATUS 04/24/2017 NILO PAYNE MD, Ot E11.9 TYPE 2 DIABETES MELLITUS WITHOUT COMPLIC 04/24/2017 NILO PAYNE MD Ot F17.210 NICOTINE DEPENDENCE, CIGARETTES, UNCOMPL 04/24/2017 NILO PAYNE MD, Ot F41.9 ANXIETY DISORDER, UNSPECIFIED 04/24/2017 NILO PAYNE MD, Ot 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 MOTOR AND SENSORY NEUROPATHY 04/24/2017 NILO PAYNE MD, Ot J11.1 FLU DUE TO UNIDENTIFIED INFLUENZA VIRUS 04/24/2017 NILO PAYNE MD, Ot M19.91 PRIMARY OSTEOARTHRITIS, UNSPECIFIED SITE 04/24/2017 NILO PAYNE MD, Ot M81.0 AGE-RELATED OSTEOPOROSIS W/O CURRENT PAT 04/24/2017 NILO PAYNE MD, Ot N31.9 NEUROMUSCULAR DYSFUNCTION OF BLADDER, UN 04/24/2017 NILO PAYNE MD Ot R06.03 ACUTE RESPIRATORY DISTRESS 04/24/2017 NILO PAYNE MD Ot E11.9 TYPE 2 DIABETES MELLITUS WITHOUT COMPLIC 04/24/2017 NILO PAYNE MD Ot F17.210 NICOTINE DEPENDENCE, CIGARETTES, UNCOMPL 04/24/2017 NILO PAYNE MD, Ot F41.9 ANXIETY DISORDER, UNSPECIFIED 04/24/2017 NILO PAYNE MD, Ot 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 MOTOR AND SENSORY NEUROPATHY 04/24/2017 NILO PAYNE MD, Ot J11.1 FLU DUE TO UNIDENTIFIED INFLUENZA VIRUS 04/24/2017 NILO PAYNE MD, Ot M19.91 PRIMARY OSTEOARTHRITIS, UNSPECIFIED SITE 04/24/2017 NILO PAYNE MD, Ot M81.0 AGE-RELATED OSTEOPOROSIS W/O CURRENT PAT 04/24/2017 NILO PAYNE MD, Ot N31.9 NEUROMUSCULAR DYSFUNCTION OF BLADDER, UN 04/24/2017 NILO PAYNE MD Ot R06.03 ACUTE RESPIRATORY DISTRESS 04/30/2017 NILO PAYNE MD Ot E11.9 TYPE 2 DIABETES MELLITUS WITHOUT COMPLIC 04/30/2017 NILO PAYNE MD Ot F17.210 NICOTINE DEPENDENCE, CIGARETTES, UNCOMPL 04/30/2017 NILO PANYE MD Ot F32.9 MAJOR DEPRESSIVE DISORDER, SINGLE EPISOD 04/30/2017 NILO PAYNE MD, Ot F41.9 ANXIETY DISORDER, UNSPECIFIED 04/30/2017 NILO PAYNE MD Ot 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 MOTOR AND SENSORY NEUROPATHY 04/30/2017 NILO PAYNE MD, Ot J11.1 FLU DUE TO UNIDENTIFIED INFLUENZA VIRUS 04/30/2017 NILO PAYNE MD Ot K59.00 CONSTIPATION, UNSPECIFIED 04/30/2017 NILO PAYNE MD Ot L89.159 PRESSURE ULCER OF SACRAL REGION, UNSPECI 04/30/2017 NILO PAYNE MD Ot M19.91 PRIMARY OSTEOARTHRITIS, UNSPECIFIED SITE 04/30/2017 NILO PAYNE MD Ot M81.0 AGE-RELATED OSTEOPOROSIS W/O CURRENT PAT 04/30/2017 NILO PAYNE MD Ot N31.9 NEUROMUSCULAR DYSFUNCTION OF BLADDER, UN 04/30/2017 NILO PAYNE MD Ot R06.03 ACUTE RESPIRATORY DISTRESS 04/30/2017 NILO PAYNE MD Ot Z99.3 DEPENDENCE ON WHEELCHAIR Procedures Code Description [place] [address] UA W/ CULTURE IF INDICATED 03/01/2012 17620 CULTURE URINE 03/03/2012 14936 UA W/ CULTURE IF INDICATED 03/31/2012 11221 CULTURE URINE 04/02/2012 05292 UA W/ CULTURE IF INDICATED 04/15/2012 68469 CULTURE URINE 04/17/2012 93056 INSERT BLADDER CATHETER 06/04/2012 22340 INSERT TEMP BLADDER CATH 06/17/2012 62815 INSERT BLADDER CATHETER 07/02/2012 90041 INSERT BLADDER CATHETER 07/16/2012 70275 UA LONG DIP 07/26/2012 76968 CULTURE URINE 07/28/2012 04016 INSERT TEMP BLADDER CATH 07/30/2012 18510 CMP 08/02/2012 46430 LIPID PANEL 08/02/2012 52281 VITAMIN D 25-HYDROXY (D2,D3 , TOTAL) 08/02/2012 48813 A1C (IN-HOUSE) 08/02/2012 07621 TSH 08/02/2012 96961 CBC 08/02/2012 45695 MAMMOGRAM, SCREENING 11/30/2012 76426 UA LONG DIP 11/30/2012 97549 CULTURE URINE 12/01/2012 95677 CULTURE URINE 12/02/2012 88996 CULTURE URINE 02/18/2013 99862 UA W/ CULTURE IF INDICATED 04/20/2013 97637 CULTURE URINE 04/22/2013 98280 CULTURE WOUND (AEROBIC) 05/23/2013 10624 A1C (IN-HOUSE) 06/14/2013 81202 UA W/ CULTURE IF INDICATED 06/20/2013 46828 CULTURE URINE 06/20/2013 94385 INSERT TEMP BLADDER CATH 06/22/2013 90883 UA LONG DIP 07/01/2013 27729 CULTURE URINE 07/02/2013 77392 INSERT TEMP BLADDER CATH 07/06/2013 54029 INSERT TEMP BLADDER CATH 07/20/2013 96664 CULTURE WOUND (AEROBIC) 07/25/2013 05028 CULTURE URINE 08/04/2013 17947 CULTURE WOUND (AEROBIC) 11/09/[address] PELVIS W/O CONTRAST 11/10/2013 72071 CULTURE WOUND (AEROBIC) 12/09/2013 43124 UA W/MICROSCOPY 12/16/2013 16791 UA W/MICROSCOPY 12/16/2013 40703 CULTURE URINE 12/20/2013 02759 CULTURE URINE 12/22/2013 89527 UA W/ CULTURE IF INDICATED 01/04/2014 55397 CULTURE URINE 01/04/2014 50058 CULTURE URINE 05/03/2014 16474 CULTURE URINE 05/05/2014 Results Test Result Range [...] culture - 01/30/16 16:15 Bacterial urine culture [id number] NRG COLONY COUNT >100,000/ML NRG FTX;REPORTABLE SENSITIVITY [...] culture - 02/08/16 15:55 Bacterial urine culture [id number] NRG COLONY COUNT 10,000/ML - 100,000/ML NRG [...] culture - 05/20/16 02:35 Bacterial urine culture [id number] NRG COLONY COUNT >100,000/ML NRG FTX;REPORTABLE SENSITIVITY REPORTED 05/21/16 7:45 NR Bacterial susceptibility panel - 05/20/16 02:35 Gentamicin [...] culture - 09/21/16 20:10 Bacterial urine culture [id number] NRG COLONY COUNT 10,000/ML - 100,000/ML NRG [...] culture - 10/17/16 23:20 Bacterial urine culture [id number] NRG COLONY COUNT >100,000/ML NRG FTX;REPORTABLE SENSITIVITY [...] culture - 12/23/16 22:16 Bacterial urine culture [id number] NRG COLONY COUNT >100,000/ML NRG FTX;REPORTABLE SENSITIVITY [...] culture - 01/12/17 18:05 Bacterial urine culture [id number] NRG COLONY COUNT >100,000/ML NRG FTX;REPORTABLE SENSITIVITY [...] culture - 04/17/17 20:16 Bacterial urine culture [id number] NRG COLONY COUNT 10,000/ML - 100,000/ML NRG FTX;REPORTABLE SENSITIVITY REPORTED 04/19 06:40 NRG Bacterial susceptibility panel - 04/17/17 20:16 Gentamicin [...] by minimum inhibitory concentration - [facility] Whole blood basic metabolic panel [...] NRG Manual blood basophils/100 leukocytes 0 % NRG Blood erythrocyte morphology finding identification NORMAL NR Automated blood complete blood count (hemogram) panel [...] FOR A ANTIGEN, BY IA [facility] Complete blood count (CBC) with [...] plasma albumin measurement (mass/volume) 3.8 g/dL 3.2-4.5 Bacterial blood culture - 04/23/17 10:15 Bacterial blood culture NG NRG Bacterial blood culture - 04/23/17 10:55 Bacterial blood culture NG NRG Complete blood count (CBC) with automated white blood cell (WBC) differential - 04/24/17 06:05 Blood leukocytes automated count (number/volume) 3.4 10*3/uL 4.3-11.0 Blood erythrocytes automated count (number/volume) 3.71 10*6/uL 4.35-5.85 Venous blood hemoglobin measurement (mass/volume) 11.6 g/dL 11.5-16.0 Blood hematocrit (volume fraction) 35 % 35-52 Automated erythrocyte mean corpuscular volume 95 [foz_us] 80-99 Automated erythrocyte mean corpuscular hemoglobin (mass per erythrocyte) 31 pg 25-34 Automated erythrocyte mean corpuscular hemoglobin concentration measurement ( mass/volume) 33 g/dL 32-36 Automated erythrocyte distribution width ratio 14.4 % 10.0-14.5 Automated blood platelet count (count/volume) 155 10*3/uL 130-400 Automated blood platelet mean volume measurement 10.1 [foz_us] 7.4-10.4 Automated blood neutrophils/100 leukocytes 39 % 42-75 Automated blood lymphocytes/100 leukocytes 37 % 12-44 Blood monocytes/100 leukocytes 24 % 0-12 Automated blood eosinophils/100 leukocytes 0 % 0-10 Automated blood basophils/100 leukocytes 0 % 0-10 Blood neutrophils automated count (number/volume) 1.3 10*3 1.8-7.8 Blood lymphocytes automated count (number/volume) 1.3 10*3 1.0-4.0 Blood monocytes automated count (number/volume) 0.8 10*3 0.0-1.0 Automated eosinophil count 0.0 10*3/uL 0.0-0.3 Automated blood basophil count (count/volume) 0.0 10*3/uL 0.0-0.1 Comprehensive metabolic panel - 01/12/18 06:05 Serum or plasma sodium measurement (moles/volume) 139 mmol/L 135-145 Serum or plasma potassium measurement (moles/volume) 3.6 mmol/L 3.6-5.0 Serum or plasma chloride measurement (moles/volume) 101 mmol/L 98-107 Carbon dioxide 28 mmol/L 21-32 Serum or plasma anion gap determination (moles/volume) 10 mmol/L 5-14 Serum or plasma urea nitrogen measurement (mass/volume) 12 mg/dL 7-18 Serum or plasma creatinine measurement (mass/volume) 0.37 mg/dL 0.60-1.30 Serum or plasma urea nitrogen/creatinine mass ratio 32 NRG Serum or plasma creatinine measurement with calculation of estimated glomerular filtration rate > NRG Serum or plasma glucose measurement (mass/volume) 85 mg/dL 70-105 Serum or plasma calcium measurement (mass/volume) 8.5 mg/dL 8.5-10.1 Serum or plasma total bilirubin measurement (mass/volume) 0.2 mg/dL 0.1-1.0 Serum or plasma alkaline phosphatase measurement (enzymatic activity/volume) 55 U/L 40-136 Serum or plasma aspartate aminotransferase measurement (enzymatic activity/ volume) 66 U/L 5-34 Serum or plasma alanine aminotransferase measurement (enzymatic activity/volume ) 52 U/L 0-55 Serum or plasma protein measurement (mass/volume) 6.1 g/dL 6.4-8.2 Serum or plasma albumin measurement (mass/volume) 3.3 g/dL 3.2-4.5 Complete blood count (CBC) with automated white blood cell (WBC) differential - 04/26/17 06:05 Blood leukocytes automated count (number/volume) 6.3 10*3/uL 4.3-11.0 Blood erythrocytes automated count (number/volume) 3.52 10*6/uL 4.35-5.85 Venous blood hemoglobin measurement (mass/volume) 10.9 g/dL 11.5-16.0 Blood hematocrit (volume fraction) 34 % 35-52 Automated erythrocyte mean corpuscular volume 97 [foz_us] 80-99 Automated erythrocyte mean corpuscular hemoglobin (mass per erythrocyte) 31 pg 25-34 Automated erythrocyte mean corpuscular hemoglobin concentration measurement ( mass/volume) 32 g/dL 32-36 Automated erythrocyte distribution width ratio 14.8 % 10.0-14.5 Automated blood platelet count (count/volume) 143 10*3/uL 130-400 Automated blood platelet mean volume measurement 10.0 [foz_us] 7.4-10.4 Automated blood neutrophils/100 leukocytes 30 % 42-75 Automated blood lymphocytes/100 leukocytes 57 % 12-44 Blood monocytes/100 leukocytes 13 % 0-12 Automated blood eosinophils/100 leukocytes 0 % 0-10 Automated blood basophils/100 leukocytes 0 % 0-10 Blood neutrophils automated count (number/volume) 1.9 10*3 1.8-7.8 Blood lymphocytes automated count (number/volume) 3.5 10*3 1.0-4.0 Blood monocytes automated count (number/volume) 0.8 10*3 0.0-1.0 Automated eosinophil count 0.0 10*3/uL 0.0-0.3 Automated blood basophil count (count/volume) 0.0 10*3/uL 0.0-0.1 Comprehensive metabolic panel - 04/26/17 06:05 Serum or plasma sodium measurement (moles/volume) 141 mmol/L 135-145 Serum or plasma potassium measurement (moles/volume) 3.5 mmol/L 3.6-5.0 Serum or plasma chloride measurement (moles/volume) 107 mmol/L 98-107 Carbon dioxide 24 mmol/L 21-32 Serum or plasma anion gap determination (moles/volume) 10 mmol/L 5-14 Serum or plasma urea nitrogen measurement (mass/volume) 10 mg/dL 7-18 Serum or plasma creatinine measurement (mass/volume) 0.33 mg/dL 0.60-1.30 Serum or plasma urea nitrogen/creatinine mass ratio 30 NRG Serum or plasma creatinine measurement with calculation of estimated glomerular filtration rate > NRG Serum or plasma glucose measurement (mass/volume) 73 mg/dL 70-105 Serum or plasma calcium measurement (mass/volume) 8.4 mg/dL 8.5-10.1 Serum or plasma total bilirubin measurement (mass/volume) 0.2 mg/dL 0.1-1.0 Serum or plasma alkaline phosphatase measurement (enzymatic activity/volume) 45 U/L 40-136 Serum or plasma aspartate aminotransferase measurement (enzymatic activity/ volume) 35 U/L 5-34 Serum or plasma alanine aminotransferase measurement (enzymatic activity/volume ) 31 U/L 0-55 Serum or plasma protein measurement (mass/volume) 5.7 g/dL 6.4-8.2 Serum or plasma albumin measurement (mass/volume) 3.1 g/dL 3.2-4.5 Complete blood count (CBC) with automated white blood cell (WBC) differential - 04/27/17 06:04 Blood leukocytes automated count (number/volume) 6.2 10*3/uL 4.3-11.0 Blood erythrocytes automated count (number/volume) 3.50 10*6/uL 4.35-5.85 Venous blood hemoglobin measurement (mass/volume) 11.1 g/dL 11.5-16.0 Blood hematocrit (volume fraction) 34 % 35-52 Automated erythrocyte mean corpuscular volume 97 [foz_us] 80-99 Automated erythrocyte mean corpuscular hemoglobin (mass per erythrocyte) 32 pg 25-34 Automated erythrocyte mean corpuscular hemoglobin concentration measurement ( mass/volume) 33 g/dL 32-36 Automated erythrocyte distribution width ratio 14.9 % 10.0-14.5 Automated blood platelet count (count/volume) 161 10*3/uL 130-400 Automated blood platelet mean volume measurement 9.8 [foz_us] 7.4-10.4 Automated blood neutrophils/100 leukocytes 24 % 42-75 Automated blood lymphocytes/100 leukocytes 65 % 12-44 Blood monocytes/100 leukocytes 11 % 0-12 Automated blood eosinophils/100 leukocytes 0 % 0-10 Automated blood basophils/100 leukocytes 0 % 0-10 Blood neutrophils automated count (number/volume) 1.5 10*3 1.8-7.8 Blood lymphocytes automated count (number/volume) 4.0 10*3 1.0-4.0 Blood monocytes automated count (number/volume) 0.7 10*3 0.0-1.0 Automated eosinophil count 0.0 10*3/uL 0.0-0.3 Automated blood basophil count (count/volume) 0.0 10*3/uL 0.0-0.1 Comprehensive metabolic panel - 04/27/17 06:04 Serum or plasma sodium measurement (moles/volume) 143 mmol/L 135-145 Serum or plasma potassium measurement (moles/volume) 4.3 mmol/L 3.6-5.0 Serum or plasma chloride measurement (moles/volume) 108 mmol/L 98-107 Carbon dioxide 25 mmol/L 21-32 Serum or plasma anion gap determination (moles/volume) 10 mmol/L 5-14 Serum or plasma urea nitrogen measurement (mass/volume) 10 mg/dL 7-18 Serum or plasma creatinine measurement (mass/volume) 0.34 mg/dL 0.60-1.30 Serum or plasma urea nitrogen/creatinine mass ratio 29 NRG Serum or plasma creatinine measurement with calculation of estimated glomerular filtration rate > NRG Serum or plasma glucose measurement (mass/volume) 71 mg/dL 70-105 Serum or plasma calcium measurement (mass/volume) 8.5 mg/dL 8.5-10.1 Serum or plasma total bilirubin measurement (mass/volume) 0.2 mg/dL 0.1-1.0 Serum or plasma alkaline phosphatase measurement (enzymatic activity/volume) 44 U/L 40-136 Serum or plasma aspartate aminotransferase measurement (enzymatic activity/ volume) 32 U/L 5-34 Serum or plasma alanine aminotransferase measurement (enzymatic activity/volume ) 30 U/L 0-55 Serum or plasma protein measurement (mass/volume) 6.0 g/dL 6.4-8.2 Serum or plasma albumin measurement (mass/volume) 3.3 g/dL 3.2-4.5 Capillary blood glucose measurement by glucometer (mass/volume) - 04/27/17 10: 19 Capillary blood glucose measurement by glucometer (mass/volume) 100 mg/dL 70-110 Complete blood count (CBC) with automated white blood cell (WBC) differential - 04/28/17 06:05 Blood leukocytes automated count (number/volume) 8.1 10*3/uL 4.3-11.0 Blood erythrocytes automated count (number/volume) 3.58 10*6/uL 4.35-5.85 Venous blood hemoglobin measurement (mass/volume) 11.1 g/dL 11.5-16.0 Blood hematocrit (volume fraction) 35 % 35-52 Automated erythrocyte mean corpuscular volume 98 [foz_us] 80-99 Automated erythrocyte mean corpuscular hemoglobin (mass per erythrocyte) 31 pg 25-34 Automated erythrocyte mean corpuscular hemoglobin concentration measurement ( mass/volume) 32 g/dL 32-36 Automated erythrocyte distribution width ratio 14.8 % 10.0-14.5 Automated blood platelet count (count/volume) 193 10*3/uL 130-400 Automated blood platelet mean volume measurement 10.0 [foz_us] 7.4-10.4 Automated blood neutrophils/100 leukocytes 31 % 42-75 Automated blood lymphocytes/100 leukocytes 58 % 12-44 Blood monocytes/100 leukocytes 11 % 0-12 Automated blood eosinophils/100 leukocytes 1 % 0-10 Automated blood basophils/100 leukocytes 0 % 0-10 Blood neutrophils automated count (number/volume) 2.5 10*3 1.8-7.8 Blood lymphocytes automated count (number/volume) 4.7 10*3 1.0-4.0 Blood monocytes automated count (number/volume) 0.9 10*3 0.0-1.0 Automated eosinophil count 0.0 10*3/uL 0.0-0.3 Automated blood basophil count (count/volume) 0.0 10*3/uL 0.0-0.1 Whole blood basic metabolic panel - 04/28/17 06:05 Serum or plasma sodium measurement (moles/volume) 143 mmol/L 135-145 Serum or plasma potassium measurement (moles/volume) 4.2 mmol/L 3.6-5.0 Serum or plasma chloride measurement (moles/volume) 105 mmol/L 98-107 Carbon dioxide 27 mmol/L 21-32 Serum or plasma anion gap determination (moles/volume) 11 mmol/L 5-14 Serum or plasma urea nitrogen measurement (mass/volume) 14 mg/dL 7-18 Serum or plasma creatinine measurement (mass/volume) 0.35 mg/dL 0.60-1.30 Serum or plasma urea nitrogen/creatinine mass ratio 40 NRG Serum or plasma creatinine measurement with calculation of estimated glomerular filtration rate > NRG Serum or plasma glucose measurement (mass/volume) 74 mg/dL 70-105 Serum or plasma calcium measurement (mass/volume) 8.9 mg/dL 8.5-10.1 Complete blood count (CBC) with automated white blood cell (WBC) differential - 04/29/17 06:46 Blood leukocytes automated count (number/volume) 6.8 10*3/uL 4.3-11.0 Blood erythrocytes automated count (number/volume) 3.63 10*6/uL 4.35-5.85 Venous blood hemoglobin measurement (mass/volume) 11.2 g/dL 11.5-16.0 Blood hematocrit (volume fraction) 36 % 35-52 Automated erythrocyte mean corpuscular volume 98 [foz_us] 80-99 Automated erythrocyte mean corpuscular hemoglobin (mass per erythrocyte) 31 pg 25-34 Automated erythrocyte mean corpuscular hemoglobin concentration measurement ( mass/volume) 32 g/dL 32-36 Automated erythrocyte distribution width ratio 14.5 % 10.0-14.5 Automated blood platelet count (count/volume) 222 10*3/uL 130-400 Automated blood platelet mean volume measurement 9.8 [foz_us] 7.4-10.4 Automated blood neutrophils/100 leukocytes 29 % 42-75 Automated blood lymphocytes/100 leukocytes 59 % 12-44 Blood monocytes/100 leukocytes 11 % 0-12 Automated blood eosinophils/100 leukocytes 1 % 0-10 Automated blood basophils/100 leukocytes 0 % 0-10 Blood neutrophils automated count (number/volume) 1.9 10*3 1.8-7.8 Blood lymphocytes automated count (number/volume) 4.0 10*3 1.0-4.0 Blood monocytes automated count (number/volume) 0.8 10*3 0.0-1.0 Automated eosinophil count 0.1 10*3/uL 0.0-0.3 Automated blood basophil count (count/volume) 0.0 10*3/uL 0.0-0.1 Comprehensive metabolic panel - 04/29/17 06:46 Serum or plasma sodium measurement (moles/volume) 143 mmol/L 135-145 Serum or plasma potassium measurement (moles/volume) 4.2 mmol/L 3.6-5.0 Serum or plasma chloride measurement (moles/volume) 106 mmol/L 98-107 Carbon dioxide 29 mmol/L 21-32 Serum or plasma anion gap determination (moles/volume) 8 mmol/L 5-14 Serum or plasma urea nitrogen measurement (mass/volume) 13 mg/dL 7-18 Serum or plasma creatinine measurement (mass/volume) 0.36 mg/dL 0.60-1.30 Serum or plasma urea nitrogen/creatinine mass ratio 36 NRG Serum or plasma creatinine measurement with calculation of estimated glomerular filtration rate > NRG Serum or plasma glucose measurement (mass/volume) 77 mg/dL 70-105 Serum or plasma calcium measurement (mass/volume) 8.7 mg/dL 8.5-10.1 Serum or plasma total bilirubin measurement (mass/volume) 0.4 mg/dL 0.1-1.0 Serum or plasma alkaline phosphatase measurement (enzymatic activity/volume) 41 U/L 40-136 Serum or plasma aspartate aminotransferase measurement (enzymatic activity/ volume) 41 U/L 5-34 Serum or plasma alanine aminotransferase measurement (enzymatic activity/volume ) 36 U/L 0-55 Serum or plasma protein measurement (mass/volume) 6.0 g/dL 6.4-8.2 Serum or plasma albumin measurement (mass/volume) 3.3 g/dL 3.2-4.5 Complete blood count (CBC) with automated white blood cell (WBC) differential - 04/30/17 06:50 Blood leukocytes automated count (number/volume) 8.0 10*3/uL 4.3-11.0 Blood erythrocytes automated count (number/volume) 3.53 10*6/uL 4.35-5.85 Venous blood hemoglobin measurement (mass/volume) 11.0 g/dL 11.5-16.0 Blood hematocrit (volume fraction) 34 % 35-52 Automated erythrocyte mean corpuscular volume 97 [foz_us] 80-99 Automated erythrocyte mean corpuscular hemoglobin (mass per erythrocyte) 31 pg 25-34 Automated erythrocyte mean corpuscular hemoglobin concentration measurement ( mass/volume) 32 g/dL 32-36 Automated erythrocyte distribution width ratio 14.5 % 10.0-14.5 Automated blood platelet count (count/volume) 246 10*3/uL 130-400 Automated blood platelet mean volume measurement 9.6 [foz_us] 7.4-10.4 Automated blood neutrophils/100 leukocytes 32 % 42-75 Automated blood lymphocytes/100 leukocytes 57 % 12-44 Blood monocytes/100 leukocytes 9 % 0-12 Automated blood eosinophils/100 leukocytes 2 % 0-10 Automated blood basophils/100 leukocytes 0 % 0-10 Blood neutrophils automated count (number/volume) 2.6 10*3 1.8-7.8 Blood lymphocytes automated count (number/volume) 4.6 10*3 1.0-4.0 Blood monocytes automated count (number/volume) 0.7 10*3 0.0-1.0 Automated eosinophil count 0.1 10*3/uL 0.0-0.3 Automated blood basophil count (count/volume) 0.0 10*3/uL 0.0-0.1 Whole blood basic metabolic panel - 04/30/17 06:50 Serum or plasma sodium measurement (moles/volume) 142 mmol/L 135-145 Serum or plasma potassium measurement (moles/volume) 3.8 mmol/L 3.6-5.0 Serum or plasma chloride measurement (moles/volume) 106 mmol/L 98-107 Carbon dioxide 26 mmol/L 21-32 Serum or plasma anion gap determination (moles/volume) 10 mmol/L 5-14 Serum or plasma urea nitrogen measurement (mass/volume) 11 mg/dL 7-18 Serum or plasma creatinine measurement (mass/volume) 0.38 mg/dL 0.60-1.30 Serum or plasma urea nitrogen/creatinine mass ratio 29 NRG Serum or plasma creatinine measurement with calculation of estimated glomerular filtration rate > NRG Serum or plasma glucose measurement (mass/volume) 77 mg/dL 70-105 Serum or plasma calcium measurement (mass/volume) 8.7 mg/dL 8.5-10.1 Encounters ACCT No. Visit Date/Time Discharge Status Pt. Type Provider Facility Loc./Unit Complaint [id number] 07/26/2014 16:57:00 07/26/2014 23:59:59 [facility] Outpatient DWAINE BENITO APRN [id number] 07/19/2014 17:04:00 07/19/2014 23:59:59 [facility] Outpatient DWAINE BENITO APRN [id number] 07/05/2014 16:59:00 07/05/2014 23:59:59 [facility] Outpatient DWAINE BENITO APRN [id number] 06/21/2014 16:55:00 06/21/2014 23:59:59 [facility] Outpatient DWAINE BENITO APRN [id number] 05/24/2014 16:53:00 05/24/2014 23:59:59 [facility] Outpatient DWAINE BENITO APRN [id number] 05/03/2014 18:27:00 05/03/2014 23:59:59 [facility] Outpatient DWAINE BENITO APRN [id number] 04/26/2014 17:01:00 04/26/2014 23:59:59 [facility] Outpatient DWAINE BENITO APRN [id number] 04/12/2014 15:47:00 04/12/2014 23:59:59 [facility] Outpatient DWAINE BENITO APRN [id number] 03/29/2014 17:08:00 03/29/2014 23:59:59 [facility] Outpatient DWAINE BENITO APRN [id number] 03/24/2014 15:18:00 03/24/2014 23:59:59 [facility] Outpatient DWAINE BENITO APRN [id number] 03/15/2014 16:56:00 03/15/2014 23:59:59 CLS Outpatient GILBERTO PRICE DO [id number] 03/03/2014 15:57:00 03/03/2014 23:59:59 [facility] Outpatient DWAINE BENITO APRN [id number] 02/25/2014 14:23:00 02/25/2014 23:59:59 [facility] Outpatient DWAINE BENITO APRN [id number] 02/15/2014 17:12:00 02/15/2014 23:59:59 [facility] Outpatient DWAINE BENITO APRN [id number] 02/01/2014 16:57:00 02/01/2014 23:59:59 [facility] Outpatient DWAINE BENITO APRN [id number] 01/18/2014 16:59:00 01/18/2014 23:59:59 CLS Outpatient GILBERTO PRICE DO [id number] 01/16/2014 14:37:00 01/16/2014 23:59:59 [facility] Outpatient DWAINE BENITO APRN [id number] 01/04/2014 16:56:00 01/04/2014 23:59:59 [facility] Outpatient DWAINE BENITO APRN [id number] 01/04/2014 16:56:00 01/04/2014 23:59:59 CLS Outpatient NEIDA TALBOT MD [id number] 12/22/2013 14:42:00 12/22/2013 23:59:59 C[facility] Outpatient DWAINE BENITO APRN [id number] 12/21/2013 16:52:00 12/21/2013 23:59:59 [facility] Outpatient DWAINE BENITO APRN [id number] 12/16/2013 15:18:00 12/16/2013 23:59:59 [facility] Outpatient DWAINE BENITO APRN [id number] 12/07/2013 16:35:00 12/07/2013 23:59:59 [facility] Outpatient DWAINE BENITO APRN [id number] 12/02/2013 15:16:00 12/02/2013 23:59:59 [facility] Outpatient DWAINE BENITO APRN [id number] 11/09/2013 16:52:00 11/09/2013 23:59:59 CLS Outpatient NEIDA TALBOT MD [id number] 11/04/2013 14:43:00 11/04/2013 23:59:59 C[facility] Outpatient DWAINE BENITO APRN [id number] 10/26/2013 17:00:00 10/26/2013 23:59:59 CLS Outpatient THONG SAAVEDRANDWAINE [id number] 10/12/2013 17:02:00 10/12/2013 23:59:59 CLS Outpatient DWAINE BENITO APRN [id number] 09/28/2013 16:56:00 09/28/2013 23:59:59 CLS Outpatient THONG SAAVEDRANDWAINE [id number] 09/14/2013 16:34:00 09/14/2013 23:59:59 CLS Outpatient THONG SAAVEDRANDWAINE [id number] 08/31/2013 16:23:00 08/31/2013 23:59:59 CLS Outpatient DWAINE BENITO APRN [id number] 08/16/2013 11:31:00 08/16/2013 23:59:59 CLS Outpatient DWAINE BENITO APRN [id number] 08/03/2013 16:56:00 08/03/2013 23:59:59 CLS Outpatient NEIDA TALBOT MD [id number] 07/25/2013 15:43:00 07/25/2013 23:59:59 CLS Outpatient DWAINE BENITO APRN [id number] 07/20/2013 16:34:00 07/20/2013 23:59:59 CLS Outpatient DWAINE BENITO APRN [id number] 07/12/2013 16:40:00 07/12/2013 23:59:59 CLS Outpatient DWAINE BENITO APRN [id number] 07/06/2013 16:45:00 07/06/2013 23:59:59 CLS Outpatient THONG SAAVEDRANDWAINE [id number] 06/28/2013 11:26:00 06/28/2013 23:59:59 CLS Outpatient THONG SAAVEDRANDWAINE [id number] 06/27/2013 14:41:00 06/27/2013 23:59:59 CLS Outpatient DWAINE BENITO APRN [id number] 06/22/2013 16:40:00 06/22/2013 23:59:59 CLS Outpatient DWAINE BENITO APRN [id number] 06/22/2013 16:40:00 06/22/2013 23:59:59 CLS Outpatient DWAINE BENITO APRN [id number] 06/20/2013 09:07:00 06/20/2013 23:59:59 CLS Outpatient DWAINE BENITO APRN [id number] 06/14/2013 15:48:00 06/14/2013 23:59:59 CLS Outpatient YE ANDRADE MD [id number] 06/08/2013 16:29:00 06/08/2013 23:59:59 CLS Outpatient DWAINE BENITO APRN [id number] 05/25/2013 16:54:00 05/25/2013 23:59:59 CLS Outpatient DWAINE BENITO APRN [id number] 05/23/2013 14:07:00 05/23/2013 23:59:59 CLS Outpatient DWAINE BENITO APRN [id number] 05/11/2013 17:01:00 05/11/2013 23:59:59 CLS Outpatient DWAINE BENITO APRN [id number] 04/27/2013 17:06:00 04/27/2013 23:59:59 CLS Outpatient DWAINE BENITO APRN [id number] 04/20/2013 08:39:00 04/20/2013 23:59:59 CLS Outpatient DWAINE BENITO APRN [id number] 04/12/2013 11:34:00 04/12/2013 23:59:59 CLS Outpatient DWAINE BENITO APRN [id number] 03/30/2013 16:43:00 03/30/2013 23:59:59 CLS Outpatient DWAINE BENITO APRN [id number] 03/16/2013 16:31:00 03/16/2013 23:59:59 CLS Outpatient NEIDA TALBOT MD [id number] 03/11/2013 09:19:00 03/11/2013 23:59:59 CLS Outpatient DWAINE BENITO APRN [id number] 03/02/2013 16:47:00 03/02/2013 23:59:59 CLS Outpatient NEIDA TALBOT MD [id number] 02/16/2013 16:40:00 02/16/2013 23:59:59 CLS Outpatient DWAINE BENITO APRN [id number] 02/02/2013 17:02:00 02/02/2013 23:59:59 CLS Outpatient NEIDA TALBOT MD [id number] 01/19/2013 16:46:00 01/19/2013 23:59:59 CLS Outpatient DWAINE BENITO APRN [id number] 01/05/2013 16:36:00 01/05/2013 23:59:59 CLS Outpatient DWAINE BENITO APRN [id number] 07/14/2012 16:52:00 07/14/2012 23:59:59 CLS Outpatient DWAINE BENITO APRN [id number] 06/30/2012 16:49:00 06/30/2012 23:59:59 CLS Outpatient [id number] 06/16/2012 17:03:00 06/16/2012 23:59:59 CLS Outpatient [id number] 06/02/2012 16:24:00 06/02/2012 23:59:59 CLS Outpatient DWAINE BENITO APRN [id number] 05/19/2012 14:49:00 05/19/2012 23:59:59 CLS Outpatient [id number] 05/05/2012 16:58:00 05/05/2012 23:59:59 CLS Outpatient [id number] 04/21/2012 17:06:00 04/21/2012 23:59:59 CLS Outpatient DWAINE BENITO APRN [id number] 04/15/2012 08:42:00 04/15/2012 23:59:59 CLS Outpatient GILBERTO PRICE DO [id number] 04/07/2012 17:05:00 04/07/2012 23:59:59 CLS Outpatient [id number] 03/31/2012 16:28:00 03/31/2012 23:59:59 CLS Outpatient NEIDA TALBOT MD [id number] 03/24/2012 17:13:00 03/24/2012 23:59:59 CLS Outpatient DWAINE BENITO APRN [id number] 02/11/2012 16:58:00 02/11/2012 23:59:59 CLS Outpatient DWAINE BENITO APRN [id number] 11/23/2013 16:48:00 Document Registration [id number] 12/15/2012 16:50:00 Document Registration [id number] 12/01/2012 16:44:00 Document Registration [id number] 10/06/2012 16:58:00 Document Registration [id number] 09/30/2012 16:25:00 Document Registration [id number] 09/22/2012 16:17:00 Document Registration [id number] 09/13/2012 17:44:00 Document Registration [id number] 09/08/2012 16:49:00 Document Registration [id number] 08/11/2012 14:50:00 Document Registration [id number] 07/28/2012 14:23:00 Document Registration [id number] 07/26/2012 08:56:00 Document Registration [id number] 07/23/2012 15:29:00 Document Registration [id number] 04/23/2017 11:50:00 04/30/2017 19:00:00 DIS Inpatient KERRY MORRISON, NILO [place] [facility] [address] 4TH INFLUENZA B,RESP DISTRESS ,HYPOXIA [id number] 04/22/2017 20:33:00 04/23/2017 00:42:00 DIS Emergency MATTHEW MORRISON, ALYSIA [place] [facility] [address] ER FEVER;NOT FEELING WELL [id number] 04/20/2017 16:15:00 04/22/2017 16:19:00 DIS Inpatient KAMLA MORRISON, JOVAN Arredondo [facility] [address] 4TH CONSTIPATION [id number] 04/16/2017 13:39:00 04/16/2017 23:59:59 CLS Outpatient DWAINE BENITO Via [facility] [address] RAD K56.99 INTESTINAL OBSTRUCTION [id number] 01/12/2017 16:14:00 01/12/2017 18:53:00 DIS Emergency WERO DODINAH K [facility] [address] ER UTI/RASH/DIARRHEA [id number] 12/24/2016 08:06:00 12/24/2016 23:59:59 CLS Preadmit SANDOVAL BUSTAMANTE MD [facility] [address] RAD HEMATURIA [id number] 12/24/2016 00:22:00 12/24/2016 23:59:59 CLS Preadmit DWAINE BENITO Via [facility] [address] SDC RECURRENT RESISTANT UTI [id number] 12/23/2016 21:42:00 12/24/2016 02:32:00 DIS Emergency MATTHEW MORRISON, ALYSIA Rushing [facility] [address] ER RT SIDED ABDOMINAL PAIN [id number] 09/30/2016 15:53:00 12/23/2016 00:01:00 DIS Outpatient DWAINE BENITO [facility] [address] SDC RECURRENT RESISTANT UTI [id number] 10/17/2016 21:54:00 10/18/2016 01:50:00 DIS Emergency BEST MCKEE MD [facility] [address] ER CHEST PAINS [id number] 09/21/2016 18:50:00 09/21/2016 21:35:00 DIS Emergency SHIRLEY KIRKPATRICK MD [facility] [address] ER UTI SYMPTOMS [id number] 05/16/2016 19:10:00 05/20/2016 13:17:00 DIS Inpatient HONG SMART MD [facility] [address] 4TH CONSTIPATION [id number] 05/16/2016 18:21:00 05/16/2016 18:21:00 CAN Preadmit SHIRLEY KIRKPATRICK MD [facility] [address] ER CONSTIPATION [id number] 05/14/2016 15:44:00 05/14/2016 18:51:00 DIS Emergency SHIRLEY KIRKPATRICK MD [facility] [address] ER CONSTIPATION [id number] 05/05/2016 00:10:00 05/05/2016 23:59:59 CLS Preadmit JOVAN CASON MD [facility] UTI [id number] 02/08/2016 15:15:00 05/04/2016 00:01:00 DIS Outpatient JOVAN CASON MD [facility] UTI [id number] 04/26/2016 19:13:00 04/26/2016 22:17:00 DIS Emergency ALYSIA CASTRO MD [facility] [address] ER CATHETER ISSUES, NOT FLOWING [id number] 01/30/2016 15:32:00 01/30/2016 17:32:00 DIS Emergency MAIKEL ZHANG MD [facility] [address] ER UTI [id number] 07/31/2015 17:03:00 07/31/2015 18:35:00 DIS Emergency ADALID HANLEY DO [facility] [address] ER [id number] 07/19/2015 01:38:00 07/19/2015 03:06:00 DIS Emergency SHIRLEY KIRKPATRICK MD [facility] [address] ER [id number] 05/29/2015 17:47:00 05/29/2015 19:17:00 DIS Emergency DINAH CONTEH DO [facility] [address] ER [id number] 08/22/2014 13:25:00 08/22/2014 15:11:00 DIS Emergency MATTHEW MORRISON, ALYSIA Rushing [facility] [address] ER [id number] 03/01/2014 20:13:00 03/02/2014 19:45:00 DIS Inpatient GILBERTO PRICE DO [facility] [address] CSD [id number] 02/27/2014 11:35:00 02/27/2014 16:27:00 DIS Emergency DINAH CONTEH DO [facility] [address] ER [id number] 11/22/2013 16:34:00 11/22/2013 23:59:59 CLS Outpatient DWAINE BENITO [facility] [address] RAD [id number] 10/20/2013 16:05:00 10/20/2013 23:59:59 CLS Outpatient APOLLO DAVIS MD [facility] [address] RAD [id number] 08/28/2013 14:46:00 08/28/2013 15:40:00 DIS Emergency BING MORRISON, HONG Alba [facility] [address] ER [id number] 12/10/2012 14:49:00 12/10/2012 23:59:59 CLS Outpatient YE ANDRADE MD [facility] [address] RAD [id number] 08/22/2014 14:35:00 Document Registration [id number] 03/07/2012 00:00:00 Document Registration [id number] 02/04/2012 00:00:00 Document Registration [id number] 12/29/2011 14:30:00 Document Registration [id number] 12/13/2011 11:08:00 Document Registration [id number] 12/05/2011 14:44:00 Document Registration [id number] 09/13/2011 13:30:00 Document Registration [id number] 09/03/2011 20:35:00 Document Registration [id number] 06/18/2011 20:18:00 Document Registration [id number] 04/01/2011 13:51:00 Document Registration [id number] 12/24/2010 20:32:00 Document Registration [id number] 12/10/2010 20:25:00 Document Registration [id number] 11/25/2010 21:35:00 Document Registration [id number] 11/12/2010 21:05:00 Document Registration [id number] 10/23/2010 19:59:00 Document Registration [id number] 10/07/2010 00:22:00 Document Registration [id number] 09/30/2010 20:46:00 Document Registration [id number] 09/27/2010 17:03:00 Document Registration [id number] 09/16/2010 20:43:00 Document Registration [id number] 08/09/2010 13:21:00 Document Registration [id number] 06/03/2010 19:21:00 Document Registration [id number] 05/17/2010 15:29:00 Document Registration [id number] 05/06/2010 19:00:00 Document Registration [id number] 02/04/2010 17:15:00 Document Registration [id number] 01/08/2010 15:39:00 Document Registration [id number] 12/17/2009 01:35:00 Document Registration [id number] 11/29/2009 13:35:00 Document Registration [id number] 11/09/2009 14:00:00 Document Registration [id number] 11/08/2009 09:17:00 Document Registration [id number] 2009 14:48:00 Document Registration [id number] 08/10/2009 15:30:00 Document Registration [id number] 06/26/2009 14:24:00 Document Registration [id number] 06/07/2009 15:19:00 Document Registration [id number] 05/07/2009 18:00:00 Document Registration [id number] 03/06/2009 14:46:00 Document Registration [id number] 02/08/2009 17:00:00 Document Registration [id number] 01/19/2009 16:38:00 Document Registration [id number] 01/16/2009 13:11:00 Document Registration [id number] 01/13/2009 14:36:00 Document Registration [id number] 11/07/2008 15:18:00 Document Registration [id number] 10/31/2008 13:51:00 Document Registration [id number] 10/16/2008 11:32:00 Document Registration
--- NOTE | 2017-05-12 18:58 | Diagnostic Imaging Report ---
INDICATION: Shortness breath EXAM: Portable chest at 6:46 PM FINDINGS: The heart size and pulmonary vascularity are normal. The lungs are clear. There are no effusions or pneumothoraces. There are Hwang rods in the thoracolumbar spine for treatment of vertebral scoliosis. IMPRESSION: No acute abnormalities of the chest Dictated by: Dictated on workstation # [id number]
[2017-05-12] MEDS ORDERED: methylPREDNISolone 125 MG (Solu-MEDROL) VIAL IVP ONE (19:00)
[2017-05-12] MEDS ORDERED: ENOXAPARIN 80 MG/0.8 ML (LOVENOX) SYR SC ONE (19:00)
[2017-05-12] MEDS ORDERED: FUROSEMIDE 40 MG/4 ML INJ (LASIX) IVP ONE (19:00)
[2017-05-12] MEDS ORDERED: RT-ALBUTEROL/IPRATROPIUM 3 ML (DUONEB) VIAL INH ONE (19:00)
[2017-05-12] MEDS ORDERED: DEXAMETHASONE 4 MG/ML SDV (DECADRON) IH ONE (19:00)
[2017-05-12 19:05] LABS: ABG BASE EXCESS -2.5 MMOL/L (-2.5-2.5); ABG OXYGEN SATURATION 100 % (94-100); ABG PCO2 36 MMHG (35-45); ABG PH 7.39 (7.37-7.43); ABG PO2 334 MMHG (79-93); ABG TCO2 22.8 MMOL/L (21.0-31.0); ALLENS TEST POSITIVE
[2017-05-12 19:07] LABS: INSPIRED O2 100% BIPAP; PATIENT TEMP 98.4; VENTILATOR NO
--- NOTE | 2017-05-12 19:08 | ED Respiratory ---
General Chief Complaint: Respiratory Problems Stated Complaint: SOB Source: patient, caregiver History of Present Illness Date Seen by Provider: May 12, 2017 Time Seen by Provider: 18:35 Initial Comments PT ARRIVES VIA POV IN SEVERE RESPIRATORY DISTRESS PT HAD JUST BEEN SEEN AT [facility] BY CHEKO BENITO--APPOINTMENT AT 1600. HAS BEEN SHORT OF BREATH FOR A COUPLE OF WEEKS, BUT BECAME SEVERE IN THE LAST 30 MINUTES SHORTLY AFTER LEAVING [facility] STORE PT C/O DIFFUSE LEFT SIDED CHEST PAIN WITH BREATHING PT IS NON-AMBULATORY/WHEELCHAIR BOUND DUE TO [id number] DISEASE, WITH PARAPLEGIA HAS HAD MULTIPLE ER VISITS AND ADMITS HAS CHRONIC INDWELLING LANDRUM CATHETER WITH CONSTANT UTI'S PT WAS ADMITTED 04/20-04/22/17 FOR CONSTIPATION, ALSO A CHRONIC PROBLEM PT SEEN IN ER 04/22/17 AFTER BEING DISMISSED FROM THE HOSPITAL AND DX WITH INFLUENZA B--WAS DISMISSED TO HOME PT CAME BACK TO HOSPITAL 04/23 AND WAS ADMITTED FOR RESPIRATORY DISTRESS, AND WAS DISMISSED ON 04/30/17. PT HAS BEEN SHORT OF BREATH THROUGHOUT THIS ILLNESS,BUT IS MUCH WORSE TODAY, AND HAS NEVER BEEN THIS BAD PT HAS HAD SUBJECTIVE LOW GRADE FEVER AT HOME SINCE SHE HAS BEEN SICK WITH ALL OF THIS, AND CONTINUES SINCE SHE HAS BEEN OUT OF THE HOSPITAL AND ALSO TODAY. PCP: [facility], CHEKO BENITO Allergies and Home Medications Allergies Coded Allergies: Sulfa (Sulfonamide Antibiotics) (Unverified Allergy, Mild, 07/29/08) Iodinated Contrast- Oral and IV Dye (Verified Allergy, Unknown, 07/30/08) latex (Verified Allergy, Unknown, 07/30/08) povidone-iodine (Unverified Allergy, Unknown, 08/28/13) soap (Unverified Allergy, Unknown, 08/28/13) Uncoded Allergies: CONTRAST DYE (Allergy, Mild, 07/29/08) EES (Allergy, Mild, 07/29/08) Home Medications Albuterol Sulfate 1 Puff Puff, 2 PUFF IH Q4H PRN for SHORTNESS OF BREATH, #1 1 PUFF = 90 MCG Prescribed by: JENNIFER HILARIO on 04/30/17 1512 Alprazolam 0.5 Mg Tablet, 0.5 MG PO TID PRN for ANXIETY, (Reported) Biotin 1,000 Mcg Tab.chew, 2,000 MCG PO DAILY, (Reported) TAKES 2 (1,000 MCG) GUMMIES Cranberry Conc/Ascorbic Acid 1 Each Capsule, 2 CAP PO HS, (Reported) Fluticasone Propionate 16 Gm [place].susp, 1 SPRAY NS DAILY, (Reported) L.acidoph & Paracasei,B.lactis 1 Each Capsule, 2 CAP PO HS, (Reported) Metformin HCl 500 Mg Tablet, 250 MG PO BID, (Reported) TAKES 1/2 OF A (500 MG) TABLET Multivitamin 1 Each Tablet, 1 TAB PO DAILY, (Reported) Oxycodone HCl/Acetaminophen 1 Each Tablet, 1 TAB PO Q4H PRN for PAIN-MODERATE, ( Reported) Polyethylene Glycol 3350 17 Gm Powd.pack, 17 GM PO TID PRN for LAXATIVE for 30 Days Prescribed by: JENNIFER HILARIO on 04/30/17 1512 Prednisone 20 Mg Tab, 20 MG PO DAILY, #8 Take 1 tab x5 days take 1/2 tab x 6 days then stop Prescribed by: JENNIFER HILARIO on 04/30/17 1512 Sennosides/Docusate Sodium 1 Each Tablet, 1 EACH PO BID for 30 Days, #60 Prescribed by: JOSE EDUARDO GUY on 04/30/17 1604 Constitutional: see HPI, fever Respiratory: see HPI, short of breath Cardiovascular: see HPI, chest pain Gastrointestinal: no symptoms reported Genitourinary: see HPI Psychiatric/Neurological: Anxiety Hematologic/Lymphatic: No Symptoms Reported Immunological/Allergic: no symptoms reported Past Dodpkei-Nvttpc-Tpbfbg Hx Patient Social History Alcohol Use: Denies Use Number of Drinks Today: Alcohol Beverage of Choice: Wine Recreational Drug Use: No Type Used: Cigarettes Former Smoker, Quit: Apr 13, 2017 2nd Hand Smoke Exposure: Yes Recent Foreign Travel: No Contact w/Someone Who Travel: No Recent Hopitalizations: No Immunizations Up To Date Tetanus Booster (TDap): Unknown Date of Pneumonia Vaccine: Feb 28, 2011 Date of Influenza Vaccine: Mar 02, 2016 Seasonal Allergies Seasonal Allergies: Yes Surgeries History of Surgeries: Yes (HEEL CORD LENGTHENING, SPINAL FUSION, ischial tuberocity wound) Surgeries: Gallbladder, Orthopedic Respiratory History of Respiratory Disorde: Yes Respiratory Disorders: Pneumonia Currently Using CPAP: No Currently Using BIPAP: No Cardiovascular History of Cardiac Disorders: No Neurological History of Neurological Disord: Yes ([id number], NON-AMBULATORY) Reproductive System Hx Reproductive Disorders: Yes 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 History: Menopausal Genitourinary History of Genitourinary Disor: Yes Genitourinary Disorders: Kidney Stones, Neurogenic Bladder, UTI-Chronic Gastrointestinal History of Gastrointestinal Di: Yes Gastrointestinal Disorders: Colitis, Chronic Diarrhea, Ulcer Musculoskeletal History of Musculoskeletal Dis: Yes (YSPNLLY-ABAOA-JXDEP AND IS NON-AMBULATORY) Musculoskeletal Disorders: Osteoporosis, Arthritis, Fractures Endocrine History of Endocrine Disorders: Yes Endocrine Disorders: Diabetes, Non-Insulin dep HEENT History of HEENT Disorders: No Loss of Vision: Denies Hearing Impairment: Denies Cancer History of Cancer: No Psychosocial History of Psychiatric Problem: Yes Behavioral Health Disorders: Anxiety Integumentary History of Skin or Integumenta: Yes (CHRONIC SACRAL DECUB ULCER SINCE 2008) Blood Transfusions History of Blood Disorders: No Adverse Reaction to a Blood Tr: No Family Medical History Family Medial History: FH: breast cancer 19 MOTHER, Onset:Unknown FH: pneumonia 19 FATHER, Onset:60 years & older Gout 19 FATHER, Onset:Unknown Hypertension 19 FATHER, Onset:Unknown Physical Exam Vital Signs Vital Sign - Last 12Hours 05/12/17 05/12/17 18:34 18:45 Temp 98.4 Pulse 95 Resp 32 B/P (MAP) 197/125 (149) Pulse Ox 77 O2 Delivery NIV Bilevel O2 Flow Rate 100.00 Capillary Refill : General Appearance: severe distress, other (PT ARRIVES IN ELECTRIC WHEELCHAIR. PT WITH SEVERE RESPIRATORY DISTRESS--ONLY ABLE TO TALK IN 1-2 WORD PHRASES AND REPEATING "HELP ME" OVER AND OVER. ) HEENT: PERRL/EOMI Respiratory: respiratory distress, decreased breath sounds, accessory muscle use, rales, rhonchi, wheezing, other (ESENTIALLY NO AIR MOVMENT ON LEFT, WITH DIFFUSE RALES/RHONCHI AND WHEEZING ON RIGHT. ) Cardiovascular: tachycardia Gastrointestinal: soft Genital/Rectal: other (INDWELLING LANDRUM WITH LEG BAG) Extremities: other (LEGS VERY THIN/SMALL AND ATROPHIC. NO EDEMA. ) Neurologic/Psychiatric: alert, other (PT WITH CHRONIC PARAPLEGIA. NO NEW NEURO DEFICITS. VERY ANXIOUS ) Skin: diaphoresis (SLIGHTLY), pallor Focused Exam Evaluation Lactate Level Laboratory Tests 05/12/17 19:10: Lactic Acid Level 2.03*H Lactic Acid Level Laboratory Tests Test 05/12/17 19:10 Lactic Acid Level 2.03 MMOL/L (0.50-2.00) *H Progress/Results/Core Measures Suspected Sepsis SIRS Temperature: Pulse: Respiratory Rate: Laboratory Tests 05/12/17 18:45: White Blood Count 8.9 Blood Pressure / Mean: Laboratory Tests 05/12/17 19:10: Lactic Acid Level 2.03*H Laboratory Tests 05/12/17 18:45: Creatinine 0.53L, INR Comment 0.9, Platelet Count 218, Total Bilirubin 0.5 Results/Orders Lab Results Laboratory Tests Test 05/12/17 18:45 05/12/17 18:54 05/12/17 19:10 05/12/17 20:00 Range/Units White Blood Count 8.9 4.3-11.0 10^3/uL Red Blood Count 4.47 4.35-5.85 10^6/uL Hemoglobin 14.1 11.5-16.0 G/DL Hematocrit 44 35-52 % Mean Corpuscular Volume 98 80-99 FL Mean Corpuscular Hemoglobin 32 25-34 PG Mean Corpuscular Hemoglobin Concent 32 32-36 G/DL Red Cell Distribution Width 15.5 H 10.0-14.5 % Platelet Count 218 130-400 10^3/uL Mean Platelet Volume 10.3 7.4-10.4 FL Neutrophils (%) (Auto) 32 L 42-75 % Lymphocytes (%) (Auto) 51 H 12-44 % Monocytes (%) (Auto) 16 H 0-12 % Eosinophils (%) (Auto) 1 0-10 % Basophils (%) (Auto) 1 0-10 % Neutrophils # (Auto) 2.8 1.8-7.8 X 10^3 Lymphocytes # (Auto) 4.5 H 1.0-4.0 X 10^3 Monocytes # (Auto) 1.4 H 0.0-1.0 X 10^3 Eosinophils # (Auto) 0.1 0.0-0.3 10^3/uL Basophils # (Auto) 0.1 0.0-0.1 10^3/uL Prothrombin Time 12.7 12.2-14.7 SEC INR Comment 0.9 0.8-1.4 Activated Partial Thromboplast Time 29 24-35 SEC Sodium Level 143 135-145 MMOL/L Potassium Level 4.2 3.6-5.0 MMOL/L Chloride Level 107 98-107 MMOL/L Carbon Dioxide Level 21 21-32 MMOL/L Anion Gap 15 H 5-14 MMOL/L Blood Urea Nitrogen 11 7-18 MG/DL Creatinine 0.53 L 0.60-1.30 MG/DL Estimat Glomerular Filtration Rate > 60 BUN/Creatinine Ratio 21 Glucose Level 103 70-105 MG/DL Calcium Level 9.8 8.5-10.1 MG/DL Magnesium Level 2.2 1.8-2.4 MG/DL Total Bilirubin 0.5 0.1-1.0 MG/DL Aspartate Amino Transf (AST/SGOT) 52 H 5-34 U/L Alanine Aminotransferase (ALT/SGPT) 43 0-55 U/L Alkaline Phosphatase 56 40-136 U/L Total Creatine Kinase 43 29-168 U/L Creatine Kinase MB 0.9 <6.6 NG/ML Myoglobin 41.5 10.0-92.0 NG/ML Troponin I < 0.30 <0.30 NG/ML B-Type Natriuretic Peptide 37.7 <100.0 PG/ML Total Protein 8.1 6.4-8.2 GM/DL Albumin 4.2 3.2-4.5 GM/DL Blood Gas Puncture Site RIGHT RADIAL Blood Gas Patient Temperature 98.4 Arterial Blood pH 7.39 7.37-7.43 Arterial Blood Partial Pressure CO2 36 35-45 MMHG Arterial Blood Partial Pressure O2 334 H 79-93 MMHG Arterial Blood HCO3 22 L 23-27 MMOL/L Arterial Blood Total CO2 22.8 21.0-31.0 MMOL/L Arterial Blood Oxygen Saturation 100 94-100 % Arterial Blood Base Excess -2.5 -2.5-2.5 MMOL/L Addy Test POSITIVE Blood Gas Ventilator Setting NO Blood Gas Inspired Oxygen 100% BIPAP Lactic Acid Level 2.03 *H 0.50-2.00 MMOL/L Urine Color YELLOW Urine Clarity CLEAR Urine pH 5 5-9 Urine Specific Dixon 1.010 L 1.016-1.022 Urine Protein 3+ H NEGATIVE Urine Glucose (UA) NEGATIVE NEGATIVE Urine Ketones NEGATIVE NEGATIVE Urine Nitrite POSITIVE H NEGATIVE Urine Bilirubin NEGATIVE NEGATIVE Urine Urobilinogen NORMAL NORMAL MG/DL Urine Leukocyte Esterase 3+ H NEGATIVE Urine RBC (Auto) NEGATIVE NEGATIVE Urine RBC RARE /HPF Urine WBC 25-50 H /HPF Urine Squamous Epithelial Cells 5-10 /HPF Urine Crystals PRESENT H /LPF Urine Calcium Oxalate Crystals FEW H /LPF Urine Bacteria LARGE H /HPF Urine Casts NONE /LPF Urine Mucus NEGATIVE /LPF Urine Culture Indicated YES My Orders Orders - WERODINAH Alba DO Methylprednisolone Sod Succ (Solu-Medrol (05/12/17 18:45) Chest 1 View, Ap/Pa Only (05/12/17 ) Saline Lock/Iv-Start (05/12/17 18:48) Ekg Tracing (05/12/17 18:48) O2 (05/12/17 18:48) Monitor-Rhythm Ecg Trace Only (05/12/17 18:48) Arterial Blood Gas (05/12/17 18:48) BNP (05/12/17 18:48) Cbc With Automated Diff (05/12/17 18:48) Comprehensive Metabolic Panel (05/12/17 18:48) Creatine Kinase (05/12/17 18:48) Creatine Kinase Mb (05/12/17 18:48) Lactic Acid Analyzer (05/12/17 18:48) Magnesium (05/12/17 18:48) Protime With Inr (05/12/17 18:48) Partial Thromboplastin Time (05/12/17 18:48) Troponin I (05/12/17 18:48) Albuterol/Ipra Inhalation Soln (Duoneb I (05/12/17 19:00) Dexamethasone Injection (Decadron Inject (05/12/17 19:00) Rt Request For Service (05/12/17 18:48) Morphine Injection (Morphine Injection (05/12/17 18:48) Svn Sm Volume Nebulizer Rt-Rfs (05/12/17 18:48) Furosemide Injection (Lasix Injection) (05/12/17 19:00) Methylprednisolone Sod Succ (Solu-Medrol (05/12/17 19:00) Dexamethasone Injection (Decadron Inject (05/12/17 18:53) Albuterol/Ipra Inhalation Soln (Duoneb I (05/12/17 18:53) Enoxaparin Injection (Lovenox Injection) (05/12/17 19:00) Ua Culture If Indicated (05/12/17 19:11) Blood Culture (05/12/17 19:11) Cefepime Injection (Maxipime Injection) (05/12/17 19:15) Chest 1 View, Ap/Pa Only (05/12/17 19:32) Saline Lock/Iv-Start (05/12/17 19:34) Medications Given in ED Current Medications Medications Dose Ordered Sig/Bo Route Start Time Stop Time Status Last Admin Dose Admin Albuterol/ Ipratropium 3 ml ONCE ONCE INH 05/12/17 19:00 05/12/17 19:01 DC 05/12/17 19:04 3 ML Cefepime HCl 2000 mg/Sodium Chloride 50 ml @ 100 mls/hr ONCE ONCE IV 05/12/17 19:15 05/12/17 19:44 DC 05/12/17 19:43 100 MLS/HR Dexamethasone Sodium Phosphate 30 mg ONCE ONCE IH 05/12/17 19:00 05/12/17 19:01 DC 05/12/17 19:04 30 MG Enoxaparin Sodium 70 mg ONCE ONCE SC 05/12/17 19:00 05/12/17 19:01 DC 05/12/17 19:43 70 MG Furosemide 80 mg ONCE ONCE IVP 05/12/17 19:00 05/12/17 19:01 DC 05/12/17 19:17 80 MG Methylprednisolone Sodium Succinate 125 mg STK-MED ONCE .ROUTE 05/12/17 18:45 05/12/17 18:47 DC 05/12/17 18:49 125 MG Vital Signs/I&O Vital Sign - Last 12Hours 05/12/17 05/12/17 05/12/17 05/12/17 18:34 18:34 18:45 19:50 Temp 98.4 Pulse 95 97 Resp 32 37 B/P (MAP) 197/125 (149) Pulse Ox 77 100 92 O2 Delivery NIV Bilevel Room Air O2 Flow Rate 100.00 21.00 Capillary Refill : Progress Note : Progress Note PT ARRIVES IN RESPIRATORY DISTRESS WITH O2 SATS IN 70'S IMMEDIATELY PLACED ON BIPAP WITH IMMEDIATE AND DRAMATIC IMPROVEMENT IN CONDITION. PT IS MUCH CALMER, RESPIRATIONS NO LONGER LABORED AND O2 SATS 100% WITHIN A FEW MINUTES. IMMEDIATE RESOLUTION OF LEFT SIDED CHEST PAIN WITH BIPAP. PT NOW RESTING QUIETLY AND COMFORTABLY. GIVEN HOUR LONG NEB TREATMENT WITH MUCH IMPROVEMENT IN AERATION AND DECREASE IN RALES/RHONCHI/WHEEZING AND INCREASED AIR MOVEMENT ON LEFT, BUT IS STILL DIMINISHED ON THE LEFT OVERALL, COMPARED TO AERATION ON RIGHT. PT IS HIGHLY ALLERGIC TO IV CONTRAST, SO UNABLE TO DO CT CHEST ANGIOGRAM. WILL TREAT EMPIRICALLY FOR P.E. WELL POTENTIAL NSTEMI/CARDIAC ISCHEMIA WITH LOVENOX AND ASPIRIN, PT IS NON-AMBULATORY AND RECENTLY SPENT A WEEK IN THE HOSPITAL, AND IS ALSO DIABETIC. ALSO GIVEN LASIX WITH RECENT HISTORY OF FLUID IN LUNGS WHILE IN HOSPITAL-- RESOLVED WITH LASIX IN HOSPITAL ALSO GIVEN SOLU-MEDROL STARTED ON CEFEPIME IN ER, WILL ADD LEVAQUIN ECG Initial ECG Impression Time: 18:44 Initial ECG Rate: 110 Initial ECG Rhythm: S.Tach Initial ECG Comparisson: Changed Comment OLD INFERIOR AND ANTERIOR/LATERAL Q-WAVES. APPEARS TO HAVE IVCD AND DIFFUSE ST ELEVATION. EKG : EKG Time: 20:16 Rate: 116 Rhythm: S.Tach Comment OLD INFERIOR AND ANTERIOR/LATERAL Q-WAVES. ST SEGMENTS NO LONGER ELEVATED. Diagnostic Imaging Comments CXR--READ NO ACUTE PROCESS, PER RADIOLOGIST REPORT @ 1900 REPEAT CXR --ALSO READ NO ACUTE PROCESS, PER RADIOLOGIST REPORT Reviewed: Reviewed by Me Critical Care Note Critical Care Total Time (minutes) 30 Departure Communication (Admissions) Progress Notes 1847--CONTACTED DR. CASON AND INFORMED HER OF CRITICAL PT. WILL CALL HER BACK WITH ADDITIONAL INFORMATION 2006--SPOKE WITH DR. CASON AGAIN, UPDATE GIVEN. ACCEPTS PT FOR ADMIT. WILL CONSULT DR. GODOY AND DR. RUBIO. 2009--SPOKE WITH DR. GODOY, PULMONOLOGY CONSULT. NO ADDITIONAL ORDERS AT THIS TIME 2022--SPOKE WITH DR. RUBIO, CARDIOLOGY CONSULT. NO ADDITIONAL ORDERS AT THIS TIME. 2025--UPDATE GIVEN TO DR. CASON 2033--SPOKE WITH DR. RUBIO AGAIN. HE AGREES THAT CHANGES LIKELY DUE TO ACUTE ISCHEMIA FROM HYPOXIA, AND EXPECT HER TROPONIN TO ELEVATE. HE DOES NOT ADVISE ANY ADDITIONAL ORDERS AT THIS TIME. Impression Impression: Primary Impression: Acute respiratory failure Additional Impressions: CLINICAL PNEUMONIA CARDIAC ISCHEMIA -POSSIBLY DUE TO HYPOXIA TYPE 2 DIABETES MELLITUS UTI WITH CHRONIC INDWELLING LANDRUM CATHETER Kojfvjb-Uttda-Hecmh disease Wheelchair dependence Disposition: ADMITTED INPATIENT Condition: Improved Admissions Decision to Admit Reason: Admit from ER (General) Decision to Admit/Date: May 12, 2017 Time/Decision to Admit Time: 20:30 Departure-Patient Inst. Referrals: GILBERTO PRICE DO (PCP) Primary Care Physician DWAINE BENITO (Family) Primary Care Physician DINAH CONTEH DO May 12, 2017 19:08
[2017-05-12] MEDS ORDERED: CEFEPIME INJECTION 2,000 MG in NS (IVPB) 50 ML IV ONE (19:15)
[2017-05-12 19:29] LABS: BASOPHILS # (AUTO) 0.1 10^3/uL (0.0-0.1); BASOPHILS % (AUTO) 1 % (0-10); EOSINOPHILS # (AUTO) 0.1 10^3/uL (0.0-0.3); EOSINOPHILS % (AUTO) 1 % (0-10); HEMATOCRIT 44 % (35-52); HEMOGLOBIN 14.1 G/DL (11.5-16.0); LYMPHOCYTES # (AUTO) 4.5 X 10^3 (1.0-4.0); LYMPHOCYTES % (AUTO) 51 % (12-44); MEAN CORPUSCULAR HEMOGLOBIN 32 PG (25-34); MEAN CORPUSCULAR HGB CONC 32 G/DL (32-36); MEAN CORPUSCULAR VOLUME 98 FL (80-99); MEAN PLATELET VOLUME 10.3 FL (7.4-10.4); MONOCYTES # (AUTO) 1.4 X 10^3 (0.0-1.0); MONOCYTES % (AUTO) 16 % (0-12); NEUTROPHILS # (AUTO) 2.8 X 10^3 (1.8-7.8); NEUTROPHILS % (AUTO) 32 % (42-75); PLATELET COUNT 218 10^3/uL (130-400); RED BLOOD COUNT 4.47 10^6/uL (4.35-5.85); RED CELL DISTRIBUTION WIDTH 15.5 % (10.0-14.5); WHITE BLOOD COUNT 8.9 10^3/uL (4.3-11.0)
[2017-05-12 19:35] LABS: INR 0.9 (0.8-1.4); PROTHROMBIN TIME PATIENT 12.7 SEC (12.2-14.7)
[2017-05-12 19:43] LABS: ALANINE AMINOTRANSFERASE 43 U/L (0-55); ALBUMIN 4.2 GM/DL (3.2-4.5); ALKALINE PHOSPHATASE 56 U/L (40-136); BILIRUBIN,TOTAL 0.5 MG/DL (0.1-1.0); BUN/CREATININE RATIO 21; CALCIUM 9.8 MG/DL (8.5-10.1); CARBON DIOXIDE 21 MMOL/L (21-32); CHLORIDE 107 MMOL/L (98-107); CREATINE KINASE 43 U/L (29-168); CREATININE SERUM 0.53 MG/DL (0.60-1.30); GFR ESTIMATED > 60; GLUCOSE 103 MG/DL (70-105); MAGNESIUM 2.2 MG/DL (1.8-2.4); POTASSIUM 4.2 MMOL/L (3.6-5.0); SODIUM 143 MMOL/L (135-145); TOTAL PROTEIN 8.1 GM/DL (6.4-8.2)
--- NOTE | 2017-05-12 19:50 | Diagnostic Imaging Report ---
INDICATION: Shortness of breath Portable chest 7:40 PM Heart size and pulmonary vascularity are normal. Lungs are clear. There are no effusions or pneumothoraces. There is scoliosis with Hwang rods in place. IMPRESSION: No acute abnormalities in the chest Dictated by: Dictated on workstation # [id number]
[2017-05-12 19:59] LABS: CREATINE KINASE MB 0.9 NG/ML (<6.6)
[2017-05-12 20:11] LABS: BILIRUBIN,URINE NEGATIVE (NEGATIVE); CLARITY,URINE CLEAR; COLOR,URINE YELLOW; GLUCOSE, URINE (UA) NEGATIVE (NEGATIVE); KETONES,URINE NEGATIVE (NEGATIVE); LEUKOCYTE ESTERASE ,URINE 3+ (NEGATIVE); NITRITE,URINE POSITIVE (NEGATIVE); PH,URINE 5 (5-9); PROTEIN,URINE 3+ (NEGATIVE); UROBILINOGEN,URINE NORMAL (NORMAL)
[2017-05-12] MEDS ORDERED: ASPIRIN 81 MG CHEW (CHILDREN'S ASA) PO ONE (20:15)
[2017-05-12 20:26] LABS: BACTERIA,URINE LARGE /HPF; CALCIUM OXALATE CRYSTALS,UR FEW /LPF; RBC,URINE RARE /HPF; WBC,URINE 25-50 /HPF
--- OUTSIDE RECORDS SUMMARY | 2017-05-12 20:46 | XMS REPORT | Clinical Summary ---
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 If you do not see the information that you expected, contact Release of Information in the Health Information Management department at [phone] for further assistance in locating additional records.[facility] Allergies Active Allergy Reactions Severity Noted [...] Taken Blood Pressure 114/70 03/31/2009 6:00 AM DIETITIAN RESEARCH Pulse 80 03/31/2009 6:00 AM DIETITIAN RESEARCH Temperature 36.6 C (97.9 F) 03/31/2009 6:00 AM DIETITIAN RESEARCH Respiratory Rate - - Oxygen Saturation 95% 03/31/2009 6:00 AM DIETITIAN RESEARCH Inhaled Oxygen - - Concentration Weight 68.1 kg (150 lb 2.1 oz) 03/23/2009 3:00 PM DIETITIAN RESEARCH Height 154.9 cm (5' 1") 03/23/2009 3:00 PM DIETITIAN RESEARCH Body Mass Index 28.37 03/23/2009 3:00 PM DIETITIAN RESEARCH Plan of Treatment Health Maintenance Due Date Last Done Comments HEPATITIS C SCREENING 1958 PHYSICAL (COMPREHENSIVE) 1965 EXAM PERTUSSIS VACCINE 1969 TETANUS VACCINE 11/03/1975 CERVICAL CANCER SCREENING 1988 BREAST CANCER SCREENING 1998 COLORECTAL CANCER 2008 SCREENING INFLUENZA VACCINE 11/11/2016 Results Not on filefrom Last 3 Months
[2017-05-12 21:43] VITALS: BP 110/29
[2017-05-12 21:45] VITALS: BP 108/70
[2017-05-12 22:00] VITALS: BP 101/74
[2017-05-12 22:15] VITALS: BP 116/76
[2017-05-12] MEDS ORDERED: RT-ALBUTEROL/IPRATROPIUM 3 ML (DUONEB) VIAL INH PRN (22:15)
[2017-05-12] MEDS ORDERED: NITROGLYCERIN 0.4 MG SL TABS BTL 25'S SL PRN (22:30)
[2017-05-12] MEDS ORDERED: LEVOFLOXACIN 750 MG/150 ML IV 150 ML IV SCH (22:30)
[2017-05-12] MEDS ORDERED: PANTOPRAZOLE 40 MG/10 ML (PROTONIX) VIAL IV ONE (22:45)
[2017-05-12 23:00] VITALS: BP 114/55
[2017-05-13] VITALS (26 sets, daily range): BP systolic 97–151; BP diastolic 67–105
[2017-05-13] MEDS: RT-ALBUTEROL/IPRATROPIUM 3 ML (DUONEB) VIAL INH SCH ×6 (02:17→21:49)
[2017-05-13] MEDS: methylPREDNISolone 125 MG (Solu-MEDROL) VIAL IVP SCH ×3 (02:32→14:14)
[2017-05-13 04:52] LABS: BASOPHILS % (AUTO) 0 % (0-10); EOSINOPHILS % (AUTO) 0 % (0-10); HEMATOCRIT 43 % (35-52); LYMPHOCYTES # (AUTO) 0.5 X 10^3 (1.0-4.0); LYMPHOCYTES % (AUTO) 15 % (12-44); MEAN CORPUSCULAR HEMOGLOBIN 32 PG (25-34); MEAN CORPUSCULAR HGB CONC 33 G/DL (32-36); MEAN CORPUSCULAR VOLUME 96 FL (80-99); MEAN PLATELET VOLUME 10.1 FL (7.4-10.4); MONOCYTES # (AUTO) 0.1 X 10^3 (0.0-1.0); MONOCYTES % (AUTO) 4 % (0-12); NEUTROPHILS # (AUTO) 2.7 X 10^3 (1.8-7.8); NEUTROPHILS % (AUTO) 81 % (42-75); PLATELET COUNT 195 10^3/uL (130-400); RED BLOOD COUNT 4.45 10^6/uL (4.35-5.85); WHITE BLOOD COUNT 3.3 10^3/uL (4.3-11.0)
[2017-05-13 04:53] LABS: ABG BASE EXCESS 1.7 MMOL/L (-2.5-2.5); ABG OXYGEN SATURATION 100 % (94-100); ABG PCO2 41 MMHG (35-45); ABG PH 7.41 (7.37-7.43); ABG PO2 131 MMHG (79-93); ABG TCO2 27.5 MMOL/L (21.0-31.0)
[2017-05-13 04:55] LABS: ALLENS TEST YES-POS; INSPIRED O2 45%; PATIENT TEMP 96.6; VENTILATOR NO
[2017-05-13 05:17] LABS: BUN/CREATININE RATIO 29; CALCIUM 9.7 MG/DL (8.5-10.1); CARBON DIOXIDE 23 MMOL/L (21-32); CHLORIDE 102 MMOL/L (98-107); CHOLESTEROL 260 MG/DL (< 200); CREATININE SERUM 0.48 MG/DL (0.60-1.30); GFR ESTIMATED > 60; GLUCOSE 150 MG/DL (70-105); HDL CHOLESTEROL 58 MG/DL (40-60); MAGNESIUM 2.1 MG/DL (1.8-2.4); POTASSIUM 3.8 MMOL/L (3.6-5.0); SODIUM 143 MMOL/L (135-145); TRIGLYCERIDES 110 MG/DL (<150); VLDL CHOLESTEROL 22 MG/DL (5-40)
[2017-05-13] MEDS: inSUlin (REGULAR) HUMAN 1 UNIT/0.01 ML (CHARGE PER UNIT) SC SCH ×4 (06:00→23:40)
[2017-05-13] MEDS: POTASSIUM CL 10MEQ/50ML IVPB 50 ML IV SCH (06:00)
[2017-05-13] MEDS: MAGNESIUM 1 GM/100 ML IVPB 100 ML IV SCH (06:00)
[2017-05-13] MEDS: KCL 20 MEQ TAB (K-DUR) PO SCH (06:00)
--- NOTE | 2017-05-13 06:10 | Pulmonary Consultation ---
History of Present Illness History of Present Illness Date of Consultation 05/13/17 06:04 Time Seen by Provider: 06:05 Date of Admission History of Present Illness 56yo with hx of being wheel chaired bound secondary to Ymteoia-Auuto-Zahyp disease with paraplegia and recent hospitalization. pt presented to ED via EMS secondary to worsening SOB. Onset was 2 wks ago however has been much worse over the last 30min. CXR is clear however pt has been requiring BiPAP all night. RN states she is slightly better this morning. unable to obtain ROS secondary to pt being on BiPAP. I am consulted for pulmonary CC mgmt. Allergies and Home Medications Allergies Coded Allergies: Sulfa (Sulfonamide Antibiotics) (Unverified Allergy, Mild, 07/29/08) Iodinated Contrast- Oral and IV Dye (Verified Allergy, Unknown, 07/30/08) latex (Verified Allergy, Unknown, 07/30/08) povidone-iodine (Unverified Allergy, Unknown, 08/28/13) soap (Unverified Allergy, Unknown, 08/28/13) Uncoded Allergies: CONTRAST DYE (Allergy, Mild, 07/29/08) EES (Allergy, Mild, 07/29/08) Home Medications Albuterol Sulfate 1 Puff Puff, 2 PUFF IH Q4H PRN for SHORTNESS OF BREATH, #1 1 PUFF = 90 MCG Prescribed by: JENNIFER HILARIO on 04/30/17 1512 Alprazolam 0.5 Mg Tablet, 0.5 MG PO TID PRN for ANXIETY, (Reported) Biotin 1,000 Mcg Tab.chew, 2,000 MCG PO DAILY, (Reported) TAKES 2 (1,000 MCG) GUMMIES Cranberry Conc/Ascorbic Acid 1 Each Capsule, 2 CAP PO HS, (Reported) Fluticasone Propionate 16 Gm [place].susp, 1 SPRAY NS DAILY, (Reported) L.acidoph & Paracasei,B.lactis 1 Each Capsule, 2 CAP PO HS, (Reported) Metformin HCl 500 Mg Tablet, 250 MG PO BID, (Reported) TAKES 1/2 OF A (500 MG) TABLET Multivitamin 1 Each Tablet, 1 TAB PO DAILY, (Reported) Oxycodone HCl/Acetaminophen 1 Each Tablet, 1 TAB PO Q4H PRN for PAIN-MODERATE, ( Reported) Polyethylene Glycol 3350 17 Gm Powd.pack, 17 GM PO TID PRN for LAXATIVE for 30 Days Prescribed by: JENNIFER HILARIO on 04/30/17 1512 Prednisone 20 Mg Tab, 20 MG PO DAILY, #8 Take 1 tab x5 days take 1/2 tab x 6 days then stop Prescribed by: JENNIFER HILARIO on 04/30/17 1512 Sennosides/Docusate Sodium 1 Each Tablet, 1 EACH PO BID for 30 Days, #60 Prescribed by: JOSE EDUARDO GUY on 04/30/17 1604 Past Wvfvana-Grlvrv-Clxwgo Hx Patient Social History Alcohol Use: Denies Use Number of Drinks Today: Alcohol Beverage of Choice: Wine Recreational Drug Use: No Smoking Status: Former Smoker Type Used: Cigarettes Former Smoker, Quit: Apr 13, 2017 2nd Hand Smoke Exposure: Yes Recent Foreign Travel: No Contact w/Someone Who Travel: No Recent Infectious Disease Expo: No Recent Hopitalizations: No Immunizations Up To Date Tetanus Booster (TDap): Unknown Date of Pneumonia Vaccine: Feb 28, 2011 Date of Influenza Vaccine: Mar 02, 2016 Seasonal Allergies Seasonal Allergies: Yes Surgeries History of Surgeries: Yes (HEEL CORD LENGTHENING, SPINAL FUSION, ischial tuberocity wound) Surgeries: Gallbladder, Orthopedic Respiratory History of Respiratory Disorde: Yes Respiratory Disorders: Pneumonia Currently Using CPAP: No Currently Using BIPAP: No Cardiovascular History of Cardiac Disorders: No Neurological History of Neurological Disord: Yes ([id number], NON-AMBULATORY) Reproductive System : No Hx Reproductive Disorders: Yes 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 History: Menopausal Genitourinary History of Genitourinary Disor: Yes Genitourinary Disorders: Kidney Stones, Neurogenic Bladder, UTI-Chronic Gastrointestinal History of Gastrointestinal Di: Yes Gastrointestinal Disorders: Colitis, Chronic Diarrhea, Ulcer Musculoskeletal History of Musculoskeletal Dis: Yes ([id number] AND IS NON-AMBULATORY) Musculoskeletal Disorders: Osteoporosis, Arthritis, Fractures Endocrine History of Endocrine Disorders: Yes Endocrine Disorders: Diabetes, Non-Insulin dep HEENT History of HEENT Disorders: No Loss of Vision: Denies Hearing Impairment: Denies Cancer History of Cancer: No Psychosocial History of Psychiatric Problem: Yes Behavioral Health Disorders: Anxiety Integumentary History of Skin or Integumenta: Yes (CHRONIC SACRAL DECUB ULCER SINCE 2008) Blood Transfusions History of Blood Disorders: No Adverse Reaction to a Blood Tr: No Family Medical History Family Medial History: FH: breast cancer 19 MOTHER, Onset:Unknown FH: pneumonia 19 FATHER, Onset:60 years & older Gout 19 FATHER, Onset:Unknown Hypertension 19 FATHER, Onset:Unknown Review of Systems Time Seen by Provider: 06:24 Exam Exam Vital Signs Date Time Temp Pulse Resp B/P (MAP) Pulse Ox O2 Delivery O2 Flow Rate FiO2 05/13/17 04:08 97 33 97 45.00 05/13/17 04:00 96.6 95 29 117/83 (94) 98 NIV Bilevel 45.00 05/13/17 04:00 98 NIV Bilevel 45.00 05/13/17 03:00 97 27 111/77 (88) 97 NIV Bilevel 45.00 05/13/17 02:21 101 28 99 45.00 05/13/17 02:00 90 21 134/82 (99) 97 NIV Bilevel 45.00 05/13/17 01:00 102 05/13/17 01:00 104 31 102/71 (81) 100 NIV Bilevel 45.00 05/13/17 00:00 98 NIV Bilevel 45.00 05/13/17 00:00 99.0 111 19 110/71 (84) 98 NIV Bilevel 45.00 05/12/17 23:00 111 25 114/55 (74) 98 NIV Bilevel 45.00 05/12/17 22:15 111 24 116/76 (89) 99 NIV Bilevel 45.00 05/12/17 22:05 112 96 45 05/12/17 22:00 109 24 101/74 (83) 98 NIV Bilevel 45.00 05/12/17 21:45 97.6 112 25 108/70 (83) 97 NIV Bilevel 45.00 05/12/17 21:43 112 37 96 45.00 05/12/17 21:40 98.4 118 25 96 NIV Bilevel 45.00 05/12/17 21:25 97 NIV Bilevel 45 05/12/17 19:50 92 21.00 05/12/17 18:45 97 37 100 100.00 05/12/17 18:34 98.4 95 32 197/125 (149) 77 Room Air 05/12/17 18:34 NIV Bilevel I & O 05/13/17 07:00 Intake Total 50 ml Output Total 1250 ml Balance -1200 ml General Appearance: Mild Distress HEENT: Normal ENT Inspection, Pharynx Normal Neck: Full Range of Motion, Normal Inspection, Non Tender, Supple Respiratory: No Accessory Muscle Use, No Respiratory Distress, Decreased Breath Sounds, Wheezing Cardiovascular: Regular Rate, Rhythm, No Edema, No Gallop Capillary Refill: Less Than 3 Seconds Gastrointestinal: soft Extremity: Normal Capillary Refill, Normal Inspection, Normal Range of Motion Neurologic/Psychiatric: Alert, Oriented x3 Skin: Normal Color, Warm/Dry Lymphatic: No Adenopathy Results Lab Laboratory Tests 05/12/17 18:45 05/13/17 04:35 Assessment/Plan Assessment/Plan Acute respiratory failure probably secondary to bronchospasam or mucous plugging -CXR is clear and no leukocytosis or fever -Doubt pneumonia -- -Doubt PE - Pt is only requiring 3 liters oxygen via a NC right now. -Check Bilateral Doppler, VQ scan - is pending -Pt did receive 1 dose of therapeutic Lovenox upon admission Elevated troponin -Will order troponins x 3 Acute UTI with hx of Klebsiella and pseudomonas - Zosyn only for now and await cultures DM II Chronic indwelling mark Paraplegia and wheel chair bound 255 Clinical Quality Measures DVT/VTE Risk/Contraindication: Risk Factor Score Per Nursin RFS Level Per Nursing on Admit: 3=High ELMER GODOY DO May 13, 2017 06:09
[2017-05-13] MEDS ORDERED: PIPERACILLIN/TAZOBACTAM 4.5 GM/D5W 100 ML IV NR ×2 (06:45)
[2017-05-13] MEDS ORDERED: CEFEPIME INJECTION 2,000 MG in NS (IVPB) 50 ML IV SCH (07:00)
[2017-05-13] MEDS ORDERED: INFLUENZA TRIvalent 2017-2018 0.5 ML/45 MCG SYR IM ONE (07:00)
[2017-05-13] MEDS: PANTOPRAZOLE 40 MG/10 ML (PROTONIX) VIAL IV SCH (08:13)
--- NOTE | 2017-05-13 08:13 | Diagnostic Imaging Report ---
INDICATION: Pneumonia. TIME OF EXAM: 4:41 AM Comparison is made with prior study from 7:40 PM FINDINGS: The heart is enlarged but stable. Spinal rods are noted. Lungs are clear. No infiltrates are seen. No effusion or pneumothorax is identified. Right convexity thoracic scoliosis is again seen. IMPRESSION: No acute cardiopulmonary process is detected. Dictated by: Dictated on workstation # [id number]
--- NOTE | 2017-05-13 08:23 | Diagnostic Imaging Report ---
INDICATION: Acute respiratory distress. PROCEDURE: US LE venous duplex, bilateral. TECHNIQUE: Multiple real-time grayscale images were obtained over the right and left lower extremities in various projections. Additional duplex Doppler and color Doppler images were also obtained. The study is limited. The common femoral and deep femoral veins could not be visualized. Superficial femoral and popliteal veins are widely patent. No thrombus is seen. No fluid collection is identified. IMPRESSION: No evidence of right or left lower extremity DVT. Dictated by: Dictated on workstation # [id number]
[2017-05-13] MEDS ORDERED: ENOXAPARIN 80 MG/0.8 ML (LOVENOX) SYR SC SCH (09:00)
[2017-05-13] MEDS ORDERED: ASPIRIN E.C. 325 MG (ECOTRIN) TABLET PO SCH (09:00)
--- NOTE | 2017-05-13 09:14 | Consultation-Cardiology ---
HPI-Cardiology Cardiology Consultation Date of Consultation 05/13/17 Date of Admission Time Seen by Provider: 09:07 Indication: chest pain and shortness of breath HPI 56 years old lady with extensive history which will be discussed below, no previous cardiac history. Patient was hospitalized for acute respiratory insufficiency earlier this month and diagnosed with influenza B. Was doing well until about 48 hours ago when she started having increasing shortness of breath, was seen in [facility] and continued on prednisone. Return to the emergency room for acute respiratory failure, patient was severely short of breath requiring BiPAP. She was having some chest tightness and tachycardia, EKG showed changes with ST elevation the anterior wall but improved immediately after starting the BiPAP and improving oxygenation. Currently she denied any chest pain but she is short of breath at rest. Denied any palpitation. Denied any syncope. She is wheelchair-bound with paraplegia Home Medications & Allergies Allergies: Coded Allergies: Sulfa (Sulfonamide Antibiotics) (Unverified Allergy, Mild, 07/29/08) Iodinated Contrast- Oral and IV Dye (Verified Allergy, Unknown, 07/30/08) latex (Verified Allergy, Unknown, 07/30/08) povidone-iodine (Unverified Allergy, Unknown, 08/28/13) soap (Unverified Allergy, Unknown, 08/28/13) Uncoded Allergies: CONTRAST DYE (Allergy, Mild, 07/29/08) EES (Allergy, Mild, 07/29/08) Home Medication List Reviewed: Yes SLF-Qejnfe-Pcfjld Hx Patient Social History Alcohol Use: Denies Use Recreational Drug Use: No Smoking Status: Former Smoker Type Used: Cigarettes 2nd Hand Smoke Exposure: Yes Recent Foreign Travel: No Recent Infectious Disease Expo: No Recent Hopitalizations: No Physical Abuse Screen: No Sexual Abuse: No Immunizations Up To Date Tetanus Booster (TDap): Unknown Date of Pneumonia Vaccine: Feb 28, 2011 Date of Influenza Vaccine: Mar 02, 2016 Past Medical History past medical history as discussed below Family Medical History Family History: 19 FATHER FH: pneumonia, Onset:60 years & older Gout, Onset:Unknown Hypertension, Onset:Unknown 19 MOTHER FH: breast cancer, Onset:Unknown Constitutional: see HPI, malaise, weakness EENTM: see HPI Respiratory: see HPI, cough, dyspnea on exertion, short of breath, wheezing Cardiovascular: see HPI, chest pain, edema Gastrointestinal: no symptoms reported, see HPI Genitourinary: see HPI, other (Had catheter) Musculoskeletal: see HPI, muscle weakness, other (paraplegia) Skin: see HPI Psychiatric/Neurological: No Symptoms Reported, See HPI Reviewed Test Results Reviewed Test Results Lab Laboratory Tests Test 05/12/17 18:45 05/12/17 18:54 05/12/17 19:10 05/12/17 20:00 Range/Units White Blood Count 8.9 4.3-11.0 10^3/uL Red Blood Count 4.47 4.35-5.85 10^6/uL Hemoglobin 14.1 11.5-16.0 G/DL Hematocrit 44 35-52 % Mean Corpuscular Volume 98 80-99 FL Mean Corpuscular Hemoglobin 32 25-34 PG Mean Corpuscular Hemoglobin Concent 32 32-36 G/DL Red Cell Distribution Width 15.5 H 10.0-14.5 % Platelet Count 218 130-400 10^3/uL Mean Platelet Volume 10.3 7.4-10.4 FL Neutrophils (%) (Auto) 32 L 42-75 % Lymphocytes (%) (Auto) 51 H 12-44 % Monocytes (%) (Auto) 16 H 0-12 % Eosinophils (%) (Auto) 1 0-10 % Basophils (%) (Auto) 1 0-10 % Neutrophils # (Auto) 2.8 1.8-7.8 X 10^3 Lymphocytes # (Auto) 4.5 H 1.0-4.0 X 10^3 Monocytes # (Auto) 1.4 H 0.0-1.0 X 10^3 Eosinophils # (Auto) 0.1 0.0-0.3 10^3/uL Basophils # (Auto) 0.1 0.0-0.1 10^3/uL Prothrombin Time 12.7 12.2-14.7 SEC INR Comment 0.9 0.8-1.4 Activated Partial Thromboplast Time 29 24-35 SEC Sodium Level 143 135-145 MMOL/L Potassium Level 4.2 3.6-5.0 MMOL/L Chloride Level 107 98-107 MMOL/L Carbon Dioxide Level 21 21-32 MMOL/L Anion Gap 15 H 5-14 MMOL/L Blood Urea Nitrogen 11 7-18 MG/DL Creatinine 0.53 L 0.60-1.30 MG/DL Estimat Glomerular Filtration Rate > 60 BUN/Creatinine Ratio 21 Glucose Level 103 70-105 MG/DL Calcium Level 9.8 8.5-10.1 MG/DL Magnesium Level 2.2 1.8-2.4 MG/DL Total Bilirubin 0.5 0.1-1.0 MG/DL Aspartate Amino Transf (AST/SGOT) 52 H 5-34 U/L Alanine Aminotransferase (ALT/SGPT) 43 0-55 U/L Alkaline Phosphatase 56 40-136 U/L Total Creatine Kinase 43 29-168 U/L Creatine Kinase MB 0.9 <6.6 NG/ML Myoglobin 41.5 10.0-92.0 NG/ML Troponin I < 0.30 <0.30 NG/ML B-Type Natriuretic Peptide 37.7 <100.0 PG/ML Total Protein 8.1 6.4-8.2 GM/DL Albumin 4.2 3.2-4.5 GM/DL Blood Gas Puncture Site RIGHT RADIAL Blood Gas Patient Temperature 98.4 Arterial Blood pH 7.39 7.37-7.43 Arterial Blood Partial Pressure CO2 36 35-45 MMHG Arterial Blood Partial Pressure O2 334 H 79-93 MMHG Arterial Blood HCO3 22 L 23-27 MMOL/L Arterial Blood Total CO2 22.8 21.0-31.0 MMOL/L Arterial Blood Oxygen Saturation 100 94-100 % Arterial Blood Base Excess -2.5 -2.5-2.5 MMOL/L Addy Test POSITIVE Blood Gas Ventilator Setting NO Blood Gas Inspired Oxygen 100% BIPAP Lactic Acid Level 2.03 *H 0.50-2.00 MMOL/L Urine Color YELLOW Urine Clarity CLEAR Urine pH 5 5-9 Urine Specific [place] 1.010 L 1.016-1.022 Urine Protein 3+ H NEGATIVE Urine Glucose (UA) NEGATIVE NEGATIVE Urine Ketones NEGATIVE NEGATIVE Urine Nitrite POSITIVE H NEGATIVE Urine Bilirubin NEGATIVE NEGATIVE Urine Urobilinogen NORMAL NORMAL MG/DL Urine Leukocyte Esterase 3+ H NEGATIVE Urine RBC (Auto) NEGATIVE NEGATIVE Urine RBC RARE /HPF Urine WBC 25-50 H /HPF Urine Squamous Epithelial Cells 5-10 /HPF Urine Crystals PRESENT H /LPF Urine Calcium Oxalate Crystals FEW H /LPF Urine Bacteria LARGE H /HPF Urine Casts NONE /LPF Urine Mucus NEGATIVE /LPF Urine Culture Indicated YES Test 05/12/17 21:10 05/13/17 00:30 05/13/17 04:35 05/13/17 04:43 Range/Units Lactic Acid Level 1.26 0.50-2.00 MMOL/L Troponin I 0.67 *H <0.30 NG/ML White Blood Count 3.3 L 4.3-11.0 10^3/uL Red Blood Count 4.45 4.35-5.85 10^6/uL Hemoglobin 14.0 11.5-16.0 G/DL Hematocrit 43 35-52 % Mean Corpuscular Volume 96 80-99 FL Mean Corpuscular Hemoglobin 32 25-34 PG Mean Corpuscular Hemoglobin Concent 33 32-36 G/DL Red Cell Distribution Width 15.0 H 10.0-14.5 % Platelet Count 195 130-400 10^3/uL Mean Platelet Volume 10.1 7.4-10.4 FL Neutrophils (%) (Auto) 81 H 42-75 % Lymphocytes (%) (Auto) 15 12-44 % Monocytes (%) (Auto) 4 0-12 % Eosinophils (%) (Auto) 0 0-10 % Basophils (%) (Auto) 0 0-10 % Neutrophils # (Auto) 2.7 1.8-7.8 X 10^3 Lymphocytes # (Auto) 0.5 L 1.0-4.0 X 10^3 Monocytes # (Auto) 0.1 0.0-1.0 X 10^3 Eosinophils # (Auto) 0.0 0.0-0.3 10^3/uL Basophils # (Auto) 0.0 0.0-0.1 10^3/uL Sodium Level 143 135-145 MMOL/L Potassium Level 3.8 3.6-5.0 MMOL/L Chloride Level 102 98-107 MMOL/L Carbon Dioxide Level 23 21-32 MMOL/L Anion Gap 18 H 5-14 MMOL/L Blood Urea Nitrogen 14 7-18 MG/DL Creatinine 0.48 L 0.60-1.30 MG/DL Estimat Glomerular Filtration Rate > 60 BUN/Creatinine Ratio 29 Glucose Level 150 H 70-105 MG/DL Calcium Level 9.7 8.5-10.1 MG/DL Phosphorus Level 4.0 2.3-4.7 MG/DL Magnesium Level 2.1 1.8-2.4 MG/DL Triglycerides Level 110 <150 MG/DL Cholesterol Level 260 H < 200 MG/DL LDL Cholesterol Direct 184 H 1-129 MG/DL VLDL Cholesterol 22 5-40 MG/DL HDL Cholesterol 58 40-60 MG/DL Blood Gas Puncture Site RIGHT RADIAL Blood Gas Patient Temperature 96.6 Arterial Blood pH 7.41 7.37-7.43 Arterial Blood Partial Pressure CO2 41 35-45 MMHG Arterial Blood Partial Pressure O2 131 H 79-93 MMHG Arterial Blood HCO3 26 23-27 MMOL/L Arterial Blood Total CO2 27.5 21.0-31.0 MMOL/L Arterial Blood Oxygen Saturation 100 94-100 % Arterial Blood Base Excess 1.7 -2.5-2.5 MMOL/L Addy Test YES-POS Blood Gas Ventilator Setting NO Blood Gas Inspired Oxygen 45% Test 05/13/17 06:45 Range/Units Troponin I 0.87 *H <0.30 NG/ML Physical Exam Vital Signs Vital Sign - Last 12Hours 05/12/17 05/12/17 05/12/17 18:34 18:45 21:25 Temp 98.4 Pulse 95 Resp 32 B/P (MAP) 197/125 (149) Pulse Ox 77 O2 Delivery NIV Bilevel O2 Flow Rate 100.00 FiO2 45 Capillary Refill : Less Than 3 Seconds General Appearance: No Apparent Distress, WD/WN, Moderate Distress Eyes: Bilateral Eye Normal Inspection, Bilateral Eye PERRL, Bilateral Eye EOMI HEENT: PERRL/EOMI, TMs Normal, Normal ENT Inspection, Pharynx Normal Neck: Full Range of Motion, Normal Inspection, Non Tender Respiratory: Chest Non Tender, Crackles, Decreased Breath Sounds, Respiratory Distress Cardiovascular: No Edema, Normal Peripheral Pulses, Systolic Murmur, Gallop/S3 , Tachycardia Gastrointestinal: Normal Bowel Sounds, No Pulsatile Mass, Soft Back: Normal Inspection Extremity: Normal Capillary Refill Neurologic/Psychiatric: Alert, No Motor/Sensory Deficits, Normal Mood/Affect Skin: Normal Color, Warm/Dry Lymphatic: No Adenopathy A/P-Cardiology Admission Diagnosis Acute respiratory failure Non-ST elevation myocardial infarction Coronary artery disease Tachycardia Diabetes mellitus Assessment/Plan Acute respiratory failure, improved on BiPAP, currently still short of breath and using nasal cannula, managed by Dr. Ludwig, no signs of pneumonia at this time. Acute chest pain with EKG changes and elevated troponin, patient has Q waves in the anterior leads, has dynamic T-wave, non-ST elevation myocardial infarction, I had a long discussion with the patient recommended cardiac catheterization to evaluate her coronary anatomy, patient prefer conservative management for now. She mentioned that she was consider cardiac catheterization in the future when she is feeling better. Tachycardia, secondary to hypoxemia. Heart rate is better at this time. Tobaccoism. Edivpuh-Fompg-Ogrzh disease, paraplegia History of indwelling urinary catheter with recurrent UTI, recurrent kidney stone with history of kidney stone basket in 2008 and lithotripsy Diabetes mellitus, followed and managed by primary care physician History of decubitus ulcer secondary to immobility with history of MRSA wound Depression Wheelchair bound History of cholecystectomy, genital wound debridement, muscle biopsy, right and left ankle closed reduction, right humerus, right femur, left femur, right tibia surgeries Clinical Quality Measures DVT/VTE Risk/Contraindication: Risk Factor Score Per Nursin RFS Level Per Nursing on Admit: 3=High ISABEL RUBIO MD May 13, 2017 09:14
[2017-05-13] MEDS ORDERED: POLY17PO6 PO (10:54)
[2017-05-13] MEDS: ALPRAZolam 0.5 MG (XANAX) TAB PO PRN ×2 (12:09→14:04)
[2017-05-13] MEDS: oxyCODONE/APAP 10/325MG (PERCOCET 10) TABLET PO PRN ×2 (12:11→21:52)
--- NOTE | 2017-05-13 13:37 | Diagnostic Imaging Report ---
INDICATION: Respiratory distress and pneumonia. TECHNIQUE: The patient was administered 41.5 mCi of technetium 99m aerosolized DTPA and imaging over the chest was performed. Next, the patient was administered 5.4 mCi of technetium 99m MAA intravenously and imaging over the chest was performed at multiple obliquities. FINDINGS: Normal clumping of the DTPA in the sunday is noted bilaterally. The ventilation portion of the study is heterogeneous. There appears to be homogeneous perfusion to both lungs. No pleural-based perfusion defects are seen. IMPRESSION: Findings consistent with a low probability for pulmonary embolism. PQRS Compliance Statement: One or more of the following individualized dose reduction techniques were utilized for this examination: 1. Automated exposure control 2. Adjustment of the mA and/or kV according to patient size 3. Use of iterative reconstruction technique Dictated by: Dictated on workstation # [id number]
[2017-05-13] MEDS ORDERED: NS IV 1000 ML 0 ML ONE (14:11)
[2017-05-13] MEDS ORDERED: LIDOCAINE 1% INJ 50 ML (XYLOCAINE) VIAL ONE (14:11)
[2017-05-13] MEDS ORDERED: HEParin (CATH LAB) 2,000 ML IV ONE (14:12)
[2017-05-13] MEDS: PIPERACILLIN SODIUM/TAZOBACTAM 4.5 GM in D5W 100 ML IVPB 100 ML IV SCH ×2 (14:14→21:04)
[2017-05-13] MEDS ORDERED: NS IV 1000 ML 1,000 ML ONE (14:27)
[2017-05-13] MEDS ORDERED: NS IV 1000 ML 1,000 ML IV SCH (14:45)
[2017-05-13] MEDS ORDERED: fentaNYL INJECTION 100 MCG/2 ML AMP ONE (15:00)
[2017-05-13] MEDS ORDERED: MIDAZOLAM 5 MG/5 ML (VERSED) VIAL ONE (15:00)
--- NOTE | 2017-05-13 15:06 | History & Physicial ([facility]) ---
HPI History of Present Illness: 56 yo female wheelchair bound due to Charcot Minerv[place] disease, presented to ER after she had acute onset of difficulty breathing. About 3 days ago she started having a feeling in her mid chest that she relates to when he gets pneumonia which she used to get frequently. She tried to hydrate well and take prednisone , but continued to get worse. Yesterday she was seen in clinic and given prescription, but while waiting to pick it up at the pharmacy she became acutely worse and was brought to ER where she had very low oxygen saturation and required bipap. She is feeling much better this morning. Source: patient Date seen by provider: May 13, 2017 Time Seen by Provider: 08:58 Attending Physician Jovan Cason MD PCP Eloise Byers DO Consult Date of Admission May 12, 2017 at 8:00 pm Home Medications Home Medications Reviewed patient Home Medication Reconciliation Form Allergies Coded Allergies: Sulfa (Sulfonamide Antibiotics) (Unverified Allergy, Mild, 07/29/08) Iodinated Contrast- Oral and IV Dye (Verified Allergy, Unknown, 07/30/08) latex (Verified Allergy, Unknown, 07/30/08) povidone-iodine (Unverified Allergy, Unknown, 08/28/13) soap (Unverified Allergy, Unknown, 08/28/13) Uncoded Allergies: CONTRAST DYE (Allergy, Mild, 07/29/08) EES (Allergy, Mild, 07/29/08) EBQ-Rhyrkr-Mghkav Hx Patient Social History Alcohol Use: Denies Use Recreational Drug Use: No Smoking Status: Former Smoker Type Used: Cigarettes 2nd Hand Smoke Exposure: Yes Recent Foreign Travel: No Contact w/other who traveled: No Recent Hopitalizations: No Recent Infectious Disease Expo: No Physical Abuse Screen: No Sexual Abuse: No Immunizations Up To Date Tetanus Booster (TDap): Unknown Date of Pneumonia Vaccine: Feb 28, 2011 Date of Influenza Vaccine: Mar 02, 2016 Past Medical History Past Medical History 1. Msdtwzw-Golzb-Etjap 2. Indwelling Urinary Catheter- with changes at the clinic 3. Tobaccoism 4. History of Kidney Stone 5. Frequent Urinary Tract Infections 6. Wheelchair bound 7. Diabetes Mellitus 8. Chronic Back Pain 9. 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 Colitis Past Surgical History 1. Cholecystectomy 85 2. Genital Wound Debridement 2008 3. Kidney Stone basket with stent 2008 [facility] 4. Lithotripsy- 2008 with Jose Juan 5. Rt. Leg Surgery 1966 6. Muscle Bx 1968 7. Lt and Rt. Ankle Closed Reduction, Rt. Humerus Rt. Femur 99 8. Left Femur Fx, Right Tibia Fibula, 1981 9. Hwang Rods 1975 Family Medical History Significant Family History: Cancer (breast), Hypertension Review of Systems ([facility]) Constitutional: malaise EENTM: No nose congestion, No throat pain Respiratory: cough, short of breath Cardiovascular: chest pain Gastrointestinal: no symptoms reported Genitourinary: no symptoms reported Musculoskeletal: back pain Skin: no symptoms reported Psychiatric/Neurological: No Symptoms Reported Reviewed Test Results Reviewed Test Results Lab Laboratory Tests Test 05/12/17 18:45 05/12/17 18:54 05/12/17 19:10 05/12/17 20:00 Range/Units White Blood Count 8.9 4.3-11.0 10^3/uL Red Blood Count 4.47 4.35-5.85 10^6/uL Hemoglobin 14.1 11.5-16.0 G/DL Hematocrit 44 35-52 % Mean Corpuscular Volume 98 80-99 FL Mean Corpuscular Hemoglobin 32 25-34 PG Mean Corpuscular Hemoglobin Concent 32 32-36 G/DL Red Cell Distribution Width 15.5 H 10.0-14.5 % Platelet Count 218 130-400 10^3/uL Mean Platelet Volume 10.3 7.4-10.4 FL Neutrophils (%) (Auto) 32 L 42-75 % Lymphocytes (%) (Auto) 51 H 12-44 % Monocytes (%) (Auto) 16 H 0-12 % Eosinophils (%) (Auto) 1 0-10 % Basophils (%) (Auto) 1 0-10 % Neutrophils # (Auto) 2.8 1.8-7.8 X 10^3 Lymphocytes # (Auto) 4.5 H 1.0-4.0 X 10^3 Monocytes # (Auto) 1.4 H 0.0-1.0 X 10^3 Eosinophils # (Auto) 0.1 0.0-0.3 10^3/uL Basophils # (Auto) 0.1 0.0-0.1 10^3/uL Prothrombin Time 12.7 12.2-14.7 SEC INR Comment 0.9 0.8-1.4 Activated Partial Thromboplast Time 29 24-35 SEC Sodium Level 143 135-145 MMOL/L Potassium Level 4.2 3.6-5.0 MMOL/L Chloride Level 107 98-107 MMOL/L Carbon Dioxide Level 21 21-32 MMOL/L Anion Gap 15 H 5-14 MMOL/L Blood Urea Nitrogen 11 7-18 MG/DL Creatinine 0.53 L 0.60-1.30 MG/DL Estimat Glomerular Filtration Rate > 60 BUN/Creatinine Ratio 21 Glucose Level 103 70-105 MG/DL Calcium Level 9.8 8.5-10.1 MG/DL Magnesium Level 2.2 1.8-2.4 MG/DL Total Bilirubin 0.5 0.1-1.0 MG/DL Aspartate Amino Transf (AST/SGOT) 52 H 5-34 U/L Alanine Aminotransferase (ALT/SGPT) 43 0-55 U/L Alkaline Phosphatase 56 40-136 U/L Total Creatine Kinase 43 29-168 U/L Creatine Kinase MB 0.9 <6.6 NG/ML Myoglobin 41.5 10.0-92.0 NG/ML Troponin I < 0.30 <0.30 NG/ML B-Type Natriuretic Peptide 37.7 <100.0 PG/ML Total Protein 8.1 6.4-8.2 GM/DL Albumin 4.2 3.2-4.5 GM/DL Blood Gas Puncture Site RIGHT RADIAL Blood Gas Patient Temperature 98.4 Arterial Blood pH 7.39 7.37-7.43 Arterial Blood Partial Pressure CO2 36 35-45 MMHG Arterial Blood Partial Pressure O2 334 H 79-93 MMHG Arterial Blood HCO3 22 L 23-27 MMOL/L Arterial Blood Total CO2 22.8 21.0-31.0 MMOL/L Arterial Blood Oxygen Saturation 100 94-100 % Arterial Blood Base Excess -2.5 -2.5-2.5 MMOL/L Addy Test POSITIVE Blood Gas Ventilator Setting NO Blood Gas Inspired Oxygen 100% BIPAP Lactic Acid Level 2.03 *H 0.50-2.00 MMOL/L Urine Color YELLOW Urine Clarity CLEAR Urine pH 5 5-9 Urine Specific Gordon 1.010 L 1.016-1.022 Urine Protein 3+ H NEGATIVE Urine Glucose (UA) NEGATIVE NEGATIVE Urine Ketones NEGATIVE NEGATIVE Urine Nitrite POSITIVE H NEGATIVE Urine Bilirubin NEGATIVE NEGATIVE Urine Urobilinogen NORMAL NORMAL MG/DL Urine Leukocyte Esterase 3+ H NEGATIVE Urine RBC (Auto) NEGATIVE NEGATIVE Urine RBC RARE /HPF Urine WBC 25-50 H /HPF Urine Squamous Epithelial Cells 5-10 /HPF Urine Crystals PRESENT H /LPF Urine Calcium Oxalate Crystals FEW H /LPF Urine Bacteria LARGE H /HPF Urine Casts NONE /LPF Urine Mucus NEGATIVE /LPF Urine Culture Indicated YES Test 05/12/17 21:10 05/13/17 00:30 05/13/17 04:35 05/13/17 04:43 Range/Units Lactic Acid Level 1.26 0.50-2.00 MMOL/L Troponin I 0.67 *H <0.30 NG/ML White Blood Count 3.3 L 4.3-11.0 10^3/uL Red Blood Count 4.45 4.35-5.85 10^6/uL Hemoglobin 14.0 11.5-16.0 G/DL Hematocrit 43 35-52 % Mean Corpuscular Volume 96 80-99 FL Mean Corpuscular Hemoglobin 32 25-34 PG Mean Corpuscular Hemoglobin Concent 33 32-36 G/DL Red Cell Distribution Width 15.0 H 10.0-14.5 % Platelet Count 195 130-400 10^3/uL Mean Platelet Volume 10.1 7.4-10.4 FL Neutrophils (%) (Auto) 81 H 42-75 % Lymphocytes (%) (Auto) 15 12-44 % Monocytes (%) (Auto) 4 0-12 % Eosinophils (%) (Auto) 0 0-10 % Basophils (%) (Auto) 0 0-10 % Neutrophils # (Auto) 2.7 1.8-7.8 X 10^3 Lymphocytes # (Auto) 0.5 L 1.0-4.0 X 10^3 Monocytes # (Auto) 0.1 0.0-1.0 X 10^3 Eosinophils # (Auto) 0.0 0.0-0.3 10^3/uL Basophils # (Auto) 0.0 0.0-0.1 10^3/uL Sodium Level 143 135-145 MMOL/L Potassium Level 3.8 3.6-5.0 MMOL/L Chloride Level 102 98-107 MMOL/L Carbon Dioxide Level 23 21-32 MMOL/L Anion Gap 18 H 5-14 MMOL/L Blood Urea Nitrogen 14 7-18 MG/DL Creatinine 0.48 L 0.60-1.30 MG/DL Estimat Glomerular Filtration Rate > 60 BUN/Creatinine Ratio 29 Glucose Level 150 H 70-105 MG/DL Calcium Level 9.7 8.5-10.1 MG/DL Phosphorus Level 4.0 2.3-4.7 MG/DL Magnesium Level 2.1 1.8-2.4 MG/DL Triglycerides Level 110 <150 MG/DL Cholesterol Level 260 H < 200 MG/DL LDL Cholesterol Direct 184 H 1-129 MG/DL VLDL Cholesterol 22 5-40 MG/DL HDL Cholesterol 58 40-60 MG/DL Blood Gas Puncture Site RIGHT RADIAL Blood Gas Patient Temperature 96.6 Arterial Blood pH 7.41 7.37-7.43 Arterial Blood Partial Pressure CO2 41 35-45 MMHG Arterial Blood Partial Pressure O2 131 H 79-93 MMHG Arterial Blood HCO3 26 23-27 MMOL/L Arterial Blood Total CO2 27.5 21.0-31.0 MMOL/L Arterial Blood Oxygen Saturation 100 94-100 % Arterial Blood Base Excess 1.7 -2.5-2.5 MMOL/L Addy Test YES-POS Blood Gas Ventilator Setting NO Blood Gas Inspired Oxygen 45% Test 05/13/17 06:45 05/13/17 12:04 05/13/17 12:10 Range/Units Troponin I 0.87 *H 0.87 *H <0.30 NG/ML Glucometer 141 H 70-110 MG/DL Radiology CXR 05/12/17: Read as no acute abnormalities per Radiology Physical Exam-([facility]) Physical Exam Vital Signs VS - Last 72 Hours, by Label 05/12/17 05/12/17 05/12/17 05/12/17 18:34 18:34 18:45 19:50 Temp 98.4 Pulse 95 97 Resp 32 37 B/P (MAP) 197/125 (149) Pulse Ox 77 100 92 O2 Delivery NIV Bilevel Room Air O2 Flow Rate 100.00 21.00 05/12/17 05/12/17 05/12/17 05/12/17 21:25 21:40 21:43 21:45 Temp 98.4 97.6 Pulse 118 112 112 Resp 25 37 25 B/P (MAP) 108/70 (83) Pulse Ox 97 96 96 97 O2 Delivery NIV Bilevel NIV Bilevel NIV Bilevel O2 Flow Rate 45.00 45.00 45.00 FiO2 45 05/12/17 05/12/17 05/12/17 05/12/17 22:00 22:05 22:15 23:00 Pulse 109 112 111 111 Resp 24 24 25 B/P (MAP) 101/74 (83) 116/76 (89) 114/55 (74) Pulse Ox 98 96 99 98 O2 Delivery NIV Bilevel NIV Bilevel NIV Bilevel O2 Flow Rate 45.00 45.00 45.00 FiO2 45 05/13/17 05/13/17 05/13/17 05/13/17 00:00 00:00 01:00 01:00 Temp 99.0 Pulse 111 104 102 Resp 19 31 B/P (MAP) 110/71 (84) 102/71 (81) Pulse Ox 98 98 100 O2 Delivery NIV Bilevel NIV Bilevel NIV Bilevel O2 Flow Rate 45.00 45.00 45.00 05/13/17 05/13/17 05/13/17 05/13/17 02:00 02:21 03:00 04:00 Pulse 90 101 97 Resp 28 27 B/P (MAP) 134/82 (99) 111/77 (88) Pulse Ox 97 99 97 98 O2 Delivery NIV Bilevel NIV Bilevel NIV Bilevel O2 Flow Rate 45.00 45.00 45.00 45.00 05/13/17 05/13/17 05/13/17 05/13/17 04:00 04:08 05:00 06:00 Temp 96.6 Pulse 95 97 100 92 Resp 29 33 35 30 B/P (MAP) 117/83 (94) 151/105 (120) 149/99 (116) Pulse Ox 98 97 97 92 O2 Delivery NIV Bilevel NIV Bilevel NIV Bilevel O2 Flow Rate 45.00 45.00 35.00 35.00 05/13/17 05/13/17 05/13/17 05/13/17 06:27 07:00 07:00 08:00 Pulse 86 86 91 Resp 21 29 B/P (MAP) 108/70 (83) 122/69 (86) Pulse Ox 96 94 93 O2 Delivery NIV Bilevel NIV Bilevel O2 Flow Rate 3.00 35.00 35.00 05/13/17 05/13/17 05/13/17 05/13/17 08:10 09:00 10:00 11:00 Temp 97.7 Pulse 86 95 80 Resp 12 23 21 B/P (MAP) 108/67 (81) 106/88 (94) 110/75 (87) Pulse Ox 94 96 96 O2 Delivery Nasal Cannula Nasal Cannula Nasal Cannula Nasal Cannula O2 Flow Rate 3.00 3.00 3.00 3.00 05/13/17 05/13/17 05/13/17 05/13/17 11:09 12:00 13:00 13:00 Pulse 92 90 87 Resp 24 27 B/P (MAP) 116/79 (91) 125/77 (93) Pulse Ox 99 94 97 O2 Delivery Nasal Cannula Nasal Cannula Nasal Cannula O2 Flow Rate 3.00 3.00 3.00 05/13/17 14:00 Pulse 87 Resp 27 B/P (MAP) 128/80 (96) Pulse Ox 97 O2 Delivery Nasal Cannula O2 Flow Rate 3.00 Capillary Refill : Less Than 3 Seconds General Appearance: no apparent distress Respiratory: decreased breath sounds, rhonchi Cardiovascular: regular rate, rhythm, no edema, no murmur Gastrointestinal: normal bowel sounds, non tender, soft Extremities: no pedal edema Neurologic/Psychiatric: alert, normal mood/affect Skin: normal color, warm/dry Clinical Quality Measures DVT/VTE Risk/Contraindication: Risk Factor Score Per Nursin RFS Level Per Nursing on Admit: 3=High Copy Copies To 1: Derrell Ortiz APRN Assessment/Plan Assessment/Plan (1) Acute respiratory failure with hypoxia Status: Acute Assessment & Plan: Mucus plugging versus pneumonia, Zosyn started in ER, Dr. Ludwig consulted for Pulm/Critical care Much improved this am, now on 2 lpm nasal cannula. V/Q scan this morning due to contrast dye allergy. (2) Elevated troponin Status: Acute Assessment & Plan: Cardiology consult, recommended cath, patient wanting to wait until respiratory status improved, monitoring troponin, on aspirin and therapeutic enoxaparin (3) Urinary tract infection Status: Acute Assessment & Plan: Unclear if infection versus colonization with indwelling catheter, will follow up culture results (4) Rljuqut-Vlsvj-Qoagr disease Status: Chronic (5) Pressure ulcer of right ischium Status: Chronic Assessment & Plan: Air mattress, dressing changes per home routine (6) Chronic pain Status: Chronic Assessment & Plan: Resume home meds (7) Chronic indwelling Chowdhury catheter Status: Chronic (8) DVT prophylaxis Status: Acute Assessment & Plan: On therapeutic enoxaparin JOVAN CASON MD May 13, 2017 3:06 pm
--- NOTE | 2017-05-13 15:24 | Cardiac Procedure Note-CS/ASA ---
Pre-Procedure Note Pre-Op Procedure Note H&P Reviewed The H&P was reviewed, patient examined and no changes noted. Date H&P Reviewed: May 13, 2017 Time H&P Reviewed: 15:24 Conscious Sedation Pre-Proced Time Reviewed: 15:24 ASA Class: 3 Airway Mallampati Classification: ([place] appropriate class) I. II. III, IV Lungs Heart ASA score ASA 1: a normal healthy patient ASA 2: a patient with a mild systemic disease (mid diabetes, controlled hypertension, obesity x ASA 3: a patient with a severe systemic disease that limits activity (angina , COPD, prior Myocardial infarction) ASA 4: a patient with an incapacitating disease that is a constant threat to life (CHF, renal failure) ASA 5: a moribund patient not expected to survive 24 hrs. (ruptured aneurysm) ASA 6: a declared brain patient whose organs are being harvested. For emergent operations, add the letter E after the classification Grade 3 Sedation Plan: Analgesia, Amnesia, Plan communicated to team members, Discussed options with patient/fam, Discussed risks with patient/fam Note The patient is an appropriate candidate to undergo the planned procedure, sedation, and anesthesia. The patient immediately re-assessed prior to indication. ISABEL RUBIO MD May 13, 2017 15:24
[2017-05-13] MEDS ORDERED: diphenhydrAMINE 50 MG/ML INJ (BENADRYL) ONE (15:40)
[2017-05-13] MEDS ORDERED: PATIENT MAY USE OWN MEDS, ALL PO SCH (16:15)
[2017-05-13] MEDS ORDERED: ENOXAPARIN 40 MG/0.4 ML (LOVENOX) SYR SQ SCH (16:15)
--- NOTE | 2017-05-13 16:20 | Cardiac Cath Report ---
Cardiac Cath Report Physician (s)/Small Package And Bundle Sorter Clerk (s) Physician ISABEL RUBIO MD Pre-Procedure Diagnosis Pre-Procedure Diagnosis: Congestive heart failure Post-Procedure Note Procedure Start Date: May 13, 2017 Name of Procedure: Left heart catheterization Findings/Procedure Note 56 years old lady admitted with acute respiratory failure, noted to have severe cardiomyopathy and elevated troponin and dynamic EKG changes, diagnosed with non -ST elevation myocardial infarction initially and decided to proceed with cardiac catheterization. PROCEDURE NOTE: After explaining the procedure to the patient, all pros and cons were explained, all questions were answered. The patient signed the consent and then she was placed on the cardiac catheterization laboratory. The patient was placed on the cardiac catheterization laboratory. Groin was prepped SL fashion local anesthesia was used. Sheath placed in the right femoral artery. Neelima right and left catheter were used to access the coronary system. Pigtail was used to access the left ventricular cavity. Left ventriculogram was done At the end of the procedure the sheath was removed. manual pressure applied FINDINGS: Hemodynamics LV 103/9, end-diastolic pressure of 9 Aorta 109/67 mean of 63 ANATOMY: Left Main is free of obstructive disease Left Anterior Descending is bwzje-su-ynyhvmio in size with mild disease in the midportion nonobstructive disease Left Circumflex is xtcri-wq-yyqnflua in size with mild disease nonobstructive disease Right Coronory Artery is small to moderate in size with mild disease nonobstructive disease LV Gram is prominent with severe diffuse hypokinesia involving the mid to apical anterior wall true apex and inferoapical segment is an ejection fraction 20 percent CONCLUSION: 1. Severe nonischemic cardiomyopathy with ejection fraction 20 percent, segmental wall motion involving the apex, anteroapical and mid anterior wall and inferoapical segments. 2. Mild to moderate coronary artery disease nonobstructive disease DISCUSSION AND RECOMMENDATION: I will maximize medical therapy for congestive heart failure, plan for LifeVest. Monitor patient closely. Anesthesia Type: Conscious Sedation Estimated blood loss (mL): 10 ml Contrast Amount: 40 ml Total Radiation Dose: 99 mGy Post-Procedure Diagnosis Post-operative diagnosis: Congestive heart failure, chronic left ventricular systolic dysfunction, nonischemic cardiomyopathy Coronary artery disease Acute respiratory failure (1) Acute respiratory failure with hypoxia Assessment & Plan: Mucus plugging versus pneumonia, Zosyn started in ER, Dr. Ludwig consulted for Pulm/Critical care Much improved this am, now on 2 lpm nasal cannula. V/Q scan this morning due to contrast dye allergy. (2) Elevated troponin Assessment & Plan: Cardiology consult, recommended cath, patient wanting to wait until respiratory status improved, monitoring troponin, on aspirin and therapeutic enoxaparin (3) Urinary tract infection Assessment & Plan: Unclear if infection versus colonization with indwelling catheter, will follow up culture results (4) Snhgkxp-Nmpnk-Vuqzm disease (5) Pressure ulcer of right ischium Assessment & Plan: Air mattress, dressing changes per home routine (6) Chronic pain Assessment & Plan: Resume home meds (7) Chronic indwelling Chowdhury catheter (8) DVT prophylaxis Assessment & Plan: On therapeutic enoxaparin ISABEL RUBIO MD May 13, 2017 16:20
[2017-05-13] MEDS: NS IV 1000 ML 1,000 ML IV SCH ×2 (16:50→23:59)
[2017-05-13] MEDS ORDERED: SACUBITRIL/VALSARTAN 24/26 MG (ENTRESTO) TABLET PO SCH (21:00)
[2017-05-13] MEDS ORDERED: CARVEDILOL 3.125 MG (COREG) TABLET PO SCH (21:00)
[2017-05-13] MEDS: ENOXAPARIN 40 MG/0.4 ML (LOVENOX) SYR SC SCH (21:51)
[2017-05-13] MEDS: LACTOBACILLUS Acidoph/Bulgar (LACTINEX/FLORANEX) TAB PO SCH (21:51)
[2017-05-14] VITALS (24 sets, daily range): BP systolic 77–123; BP diastolic 40–77
[2017-05-14] MEDS: ALPRAZolam 0.5 MG (XANAX) TAB PO PRN ×2 (00:41→12:33)
[2017-05-14] MEDS: RT-ALBUTEROL/IPRATROPIUM 3 ML (DUONEB) VIAL INH SCH ×6 (02:20→21:55)
[2017-05-14] MEDS ORDERED: NS (IVPB) 250 ML ONE (03:19)
[2017-05-14] MEDS ORDERED: DOPamine DRIP 250 ML IV ONE (03:41)
[2017-05-14] MEDS ORDERED: NS 1000 ML IV BAG IV ONE (03:45)
[2017-05-14] MEDS ORDERED: DOPamine DRIP 250 ML IV SCH (03:45)
[2017-05-14] MEDS ORDERED: NS IV 500 ML 250 ML IV SCH (04:00)
[2017-05-14] MEDS: DOPamine DRIP 400 MG/250 ML D5W (PRE-MIX) IV SCH (04:06)
[2017-05-14] MEDS: PIPERACILLIN SODIUM/TAZOBACTAM 4.5 GM in D5W 100 ML IVPB 100 ML IV SCH ×3 (05:02→21:03)
[2017-05-14 05:48] LABS: BASOPHILS % (AUTO) 0 % (0-10); EOSINOPHILS % (AUTO) 0 % (0-10); HEMATOCRIT 36 % (35-52); HEMOGLOBIN 11.8 G/DL (11.5-16.0); LYMPHOCYTES # (AUTO) 1.2 X 10^3 (1.0-4.0); LYMPHOCYTES % (AUTO) 28 % (12-44); MEAN CORPUSCULAR HEMOGLOBIN 32 PG (25-34); MEAN CORPUSCULAR HGB CONC 33 G/DL (32-36); MEAN CORPUSCULAR VOLUME 97 FL (80-99); MEAN PLATELET VOLUME 10.2 FL (7.4-10.4); MONOCYTES # (AUTO) 1.1 X 10^3 (0.0-1.0); MONOCYTES % (AUTO) 26 % (0-12); NEUTROPHILS # (AUTO) 1.9 X 10^3 (1.8-7.8); NEUTROPHILS % (AUTO) 46 % (42-75); PLATELET COUNT 194 10^3/uL (130-400); RED BLOOD COUNT 3.71 10^6/uL (4.35-5.85); WHITE BLOOD COUNT 4.1 10^3/uL (4.3-11.0)
[2017-05-14] MEDS: KCL 20 MEQ TAB (K-DUR) PO SCH (06:00)
[2017-05-14] MEDS: inSUlin (REGULAR) HUMAN 1 UNIT/0.01 ML (CHARGE PER UNIT) SC SCH ×4 (06:00→22:36)
[2017-05-14] MEDS: MAGNESIUM 1 GM/100 ML IVPB 100 ML IV SCH (06:00)
[2017-05-14] MEDS: POTASSIUM CL 10MEQ/50ML IVPB 50 ML IV SCH (06:00)
[2017-05-14 06:22] LABS: ANISOCYTOSIS SLIGHT; BAND NEUTROPHILS 1 %; BASOPHILS % (MANUAL) 0 %; EOSINOPHILS % (MANUAL) 0 %; LYMPHOCYTES % (MANUAL) 27 %; MONOCYTES % (MANUAL) 16 %; NEUTROPHILS % (MANUAL) 53 %; REACTIVE LYMPHOCYTES 3 %
[2017-05-14 06:26] LABS: BUN/CREATININE RATIO 43; CALCIUM 8.5 MG/DL (8.5-10.1); CARBON DIOXIDE 20 MMOL/L (21-32); CHLORIDE 108 MMOL/L (98-107); CREATININE SERUM 0.42 MG/DL (0.60-1.30); GFR ESTIMATED > 60; GLUCOSE 132 MG/DL (70-105); MAGNESIUM 2.1 MG/DL (1.8-2.4); PHOSPHORUS 2.7 MG/DL (2.3-4.7); SODIUM 140 MMOL/L (135-145)
--- NOTE | 2017-05-14 06:59 | Pulmonary Progress Note ---
Subjective Time Seen by Provider: 06:59 Subjective/Events-last exam pt is requiring dopamine now for hypotension. Exam Exam Vital Signs Date Time Temp Pulse Resp B/P (MAP) Pulse Ox O2 Delivery O2 Flow Rate FiO2 05/14/17 06:00 54 20 81/57 (65) 94 Nasal Cannula 1.00 05/14/17 05:00 55 16 77/54 (62) 93 Nasal Cannula 1.00 05/14/17 04:06 54 20 77/53 95 Nasal Cannula 1.00 05/14/17 04:00 98 Nasal Cannula 1.00 05/14/17 04:00 96.9 55 20 86/47 (60) 95 Nasal Cannula 1.00 05/14/17 03:00 55 22 78/40 (53) 94 Nasal Cannula 1.00 05/14/17 02:20 93 Nasal Cannula 1.00 05/14/17 02:00 56 21 82/51 (61) 93 Nasal Cannula 1.00 05/14/17 01:00 66 05/14/17 01:00 52 15 87/55 (66) 95 Nasal Cannula 1.00 05/14/17 00:05 97.8 Nasal Cannula 1.00 05/14/17 00:00 64 19 102/70 (81) 99 Nasal Cannula 1.00 05/14/17 00:00 98 Nasal Cannula 2.00 05/13/17 23:00 56 18 105/69 (81) 98 Nasal Cannula 1.00 05/13/17 22:00 63 21 97/68 (78) 100 Nasal Cannula 2.00 05/13/17 21:50 93 Nasal Cannula 2.00 05/13/17 21:00 85 20 111/70 (84) 94 Nasal Cannula 2.00 05/13/17 20:00 98 Nasal Cannula 2.00 05/13/17 20:00 88 30 130/83 (99) 97 Nasal Cannula 2.00 05/13/17 19:00 75 28 113/80 (91) 95 Nasal Cannula 2.00 05/13/17 19:00 76 05/13/17 18:52 96 Nasal Cannula 3.00 05/13/17 18:00 66 21 107/70 (82) 99 Nasal Cannula 3.00 05/13/17 17:00 73 15 115/75 (88) 99 Nasal Cannula 3.00 05/13/17 16:50 98 Nasal Cannula 3.00 05/13/17 16:50 97.0 Nasal Cannula 3.00 05/13/17 16:00 79 20 125/81 (96) 99 Nasal Cannula 3.00 05/13/17 15:03 95 Nasal Cannula 3.00 05/13/17 15:00 91 17 133/75 (94) 95 Nasal Cannula 3.00 05/13/17 14:00 87 27 128/80 (96) 97 Nasal Cannula 3.00 05/13/17 13:15 98 Nasal Cannula 3.00 05/13/17 13:00 87 27 125/77 (93) 97 Nasal Cannula 3.00 05/13/17 13:00 90 05/13/17 12:00 98.2 05/13/17 12:00 92 24 116/79 (91) 94 Nasal Cannula 3.00 05/13/17 11:09 99 Nasal Cannula 3.00 05/13/17 11:00 80 21 110/75 (87) 96 Nasal Cannula 3.00 05/13/17 10:00 95 23 106/88 (94) 96 Nasal Cannula 3.00 05/13/17 09:00 86 12 108/67 (81) 94 Nasal Cannula 3.00 05/13/17 08:15 98 Nasal Cannula 3.00 05/13/17 08:10 97.7 Nasal Cannula 3.00 05/13/17 08:00 91 29 122/69 (86) 93 NIV Bilevel 35.00 05/13/17 07:00 86 21 108/70 (83) 94 NIV Bilevel 35.00 05/13/17 07:00 86 I & O 05/14/17 07:00 Intake Total 1776 ml Output Total 650 ml Balance 1126 ml General Appearance: No Apparent Distress, WD/WN, Moderate Distress HEENT: PERRL/EOMI, TMs Normal, Normal ENT Inspection, Pharynx Normal Neck: Full Range of Motion, Normal Inspection, Non Tender Respiratory: Chest Non Tender, Crackles, Decreased Breath Sounds, Respiratory Distress Cardiovascular: No Edema, Normal Peripheral Pulses, Systolic Murmur, Gallop/S3 , Tachycardia Capillary Refill: Less Than 3 Seconds Gastrointestinal: normal bowel sounds, non tender, soft Extremity: Normal Capillary Refill Neurologic/Psychiatric: Alert, No Motor/Sensory Deficits, Normal Mood/Affect Skin: Normal Color, Warm/Dry Lymphatic: No Adenopathy Results Lab Laboratory Tests 05/12/17 18:45 05/13/17 04:35 05/14/17 05:10 Assessment/Plan Assessment/Plan Acute respiratory failure probably secondary to bronchospasam or mucous plugging -- much improved -CXR is clear and no leukocytosis or fever -Doubt pneumonia -- -V/Q and dopplers are negative NSTEMI -cardiology following -Will order troponins x 3 Cardiomyopathy with EF of 20% Hypotension -Pt is currently on small amount of dopamine -titrate to D/C Acute UTI with hx of Klebsiella and pseudomonas - Zosyn only for now and await cultures DM II Chronic indwelling mark Paraplegia and wheel chair bound 233 Clinical Quality Measures DVT/VTE Risk/Contraindication: Risk Factor Score Per Nursin RFS Level Per Nursing on Admit: 3=High ELMER GODOY DO May 14, 2017 06:59
[2017-05-14] MEDS ORDERED: KCL 20 MEQ TAB (K-DUR) PO ONE (07:15)
--- NOTE | 2017-05-14 07:25 | Diagnostic Imaging Report ---
INDICATION: Pneumonia COMPARISON: 05/13/2017 FINDINGS: Single frontal view of the chest demonstrates normal heart size and pulmonary vascularity. The lungs are well aerated and clear. No large pleural effusion or pneumothorax is seen. The visualized osseous structures show no acute abnormalities. Postsurgical changes of the thoracic spine are noted. IMPRESSION: 1. No acute cardiopulmonary process. Dictated by: Dictated on workstation # [id number]
--- NOTE | 2017-05-14 09:02 | Cardiology Progress Note ---
Subjective Date Seen by Provider: May 14, 2017 Time Seen by Provider: 08:57 Subjective/Events-last exam Patient is in bed. Complaining of fatigue and malaise, but denies any CP or dyspnea. Review of Systems General: No Chills, No Night Sweats, Fatigue, Malaise, No Appetite, No Other Pulmonary: Dyspnea, Cough, Pleuritic Chest Pain Objective-Cardiology Exam Last Set of Vital Signs Vital Signs 05/17/17 05/19/17 05/19/17 14:53 04:38 11:51 Temp 98.0 Pulse 96 Resp 16 B/P (MAP) 138/62 (87) Pulse Ox 95 O2 Delivery Room Air O2 Flow Rate 1.00 FiO2 50 Capillary Refill : Less Than 3 Seconds I&O Intake and Output 05/19/17 00:00 Intake Total 3460 ml Output Total 2250 ml Balance 1210 ml Intake Oral 1460 ml IV Total 2000 ml Output Urine Total 2250 ml # Bowel Movements 1 General: Alert, Oriented X3 HEENT: Atraumatic, PERRLA Lungs: Clear to Auscultation, Normal Air Movement Heart: Other (bradycardic) Abdomen: Normal Bowel Sounds, Soft, No Tenderness, No Hepatosplenomegaly Extremities: No Edema, Normal Pulses Skin: No Rashes, No Significant Lesion Neuro: Normal Gait, Normal Speech, Cranial Nerves 3-12 NL Psych/Mental Status: Mental Status NL, Mood NL Results Lab Laboratory Tests 05/19/17 06:18 A/P-Cardiology Admission Diagnosis Acute respiratory failure Non-ST elevation myocardial infarction Coronary artery disease Tachycardia Diabetes mellitus Assessment/Plan Acute respiratory failure, improved,no signs of pneumonia at this time. Continue supportive care and continue to monitor. Acute chest pain with EKG changes and elevated troponin, patient has Q waves in the anterior leads, has dynamic T-wave,underwent cardiac catheterization yesterday revealing Tachycardia, secondary to hypoxemia. Heart rate is better at this time. Tobaccoism. Mdnxran-Afifo-Dvsmv disease, paraplegia History of indwelling urinary catheter with recurrent UTI, recurrent kidney stone with history of kidney stone basket in 2008 and lithotripsy Diabetes mellitus, followed and managed by primary care physician History of decubitus ulcer secondary to immobility with history of MRSA wound Depression Wheelchair bound History of cholecystectomy, genital wound debridement, muscle biopsy, right and left ankle closed reduction, right humerus, right femur, left femur, right tibia surgeries Clinical Quality Measures DVT/VTE Risk/Contraindication: Risk Factor Score Per Nursin RFS Level Per Nursing on Admit: 3=High PHILIPPE BLAIR May 14, 2017 09:02 ISABEL RUBIO MD May 19, 2017 13:55
[2017-05-14] MEDS ORDERED: KCL 20 MEQ TAB (K-DUR) PO NR ×2 (09:57→11:15)
[2017-05-14] MEDS: PANTOPRAZOLE 40 MG/10 ML (PROTONIX) VIAL IV SCH (10:30)
[2017-05-14] MEDS: oxyCODONE/APAP 10/325MG (PERCOCET 10) TABLET PO PRN ×2 (10:31→21:03)
[2017-05-14] MEDS: ASPIRIN E.C. 81 MG (ECOTRIN) TAB PO SCH (10:31)
[2017-05-14] MEDS: NS IV 1000 ML 1,000 ML IV SCH ×2 (10:32→22:41)
--- NOTE | 2017-05-14 10:47 | Cardiology Progress Note ---
Subjective Date Seen by Provider: May 14, 2017 Time Seen by Provider: 08:50 Subjective/Events-last exam Patient is in bed. Complaining of fatigue and malaise. Denies any CP or dyspnea. Objective-Cardiology Exam Last Set of Vital Signs Vital Signs 05/13/17 05/14/17 05/14/17 04:00 04:00 10:00 Temp 96.9 Pulse 67 Resp 22 B/P (MAP) 91/43 (59) Pulse Ox 95 O2 Delivery Nasal Cannula O2 Flow Rate 1.00 FiO2 45 Capillary Refill : Less Than 3 Seconds I&O Intake and Output 05/14/17 00:00 Intake Total 1593 ml Output Total 1300 ml Balance 293 ml Intake Oral 270 ml IV Total 1323 ml Output Urine Total 1300 ml # Bowel Movements 1 General: Alert, Oriented X3, Cooperative HEENT: Atraumatic, PERRLA Neck: Supple, No JVD, No Thyromegaly Lungs: Clear to Auscultation, Normal Air Movement Heart: Other (bradycardic) Abdomen: Normal Bowel Sounds, No Tenderness Extremities: No Edema Skin: No Rashes, No Significant Lesion Neuro: Normal Speech, Cranial Nerves 3-12 NL Psych/Mental Status: Mental Status NL, Mood NL Results Lab Laboratory Tests 05/14/17 05:10 A/P-Cardiology Admission Diagnosis Acute respiratory failure Non-ST elevation myocardial infarction Coronary artery disease Tachycardia Diabetes mellitus Assessment/Plan Acute respiratory failure, improved. Managed by Dr. Ludwig, no signs of pneumonia at this time. Acute chest pain with EKG changes and elevated troponin, patient has Q waves in the anterior leads, has dynamic T-wave, non-ST elevation myocardial infarction, underwent cardiac catheterization yesterday revealing: Severe nonischemic cardiomyopathy with ejection fraction 20 percent, segmental wall motion involving the apex, anteroapical and mid anterior wall and inferoapical segments. 2. Mild to moderate coronary artery disease nonobstructive disease Congestive heart failure, acute left ventricular systolic dysfunction, EF 20 percent. Appears to be Takotsubo cardiomyopathy, was started on beta millie, Entresto, however is hypotensive, requiring dobutamine. I will discontinue beta millie and entresto. Continue to monitor. May try starting beta millie at lower dose if tolerated. I will order Life Vest. Tachycardia, secondary to hypoxemia. Heart rate is better at this time. Is borderline bradycardic at this time. Continue to monitor. Tobaccoism. Zaddwwk-Ceotb-Mdilf disease, paraplegia History of indwelling urinary catheter with recurrent UTI, recurrent kidney stone with history of kidney stone basket in 2008 and lithotripsy Diabetes mellitus, followed and managed by primary care physician History of decubitus ulcer secondary to immobility with history of MRSA wound Depression Wheelchair bound History of cholecystectomy, genital wound debridement, muscle biopsy, right and left ankle closed reduction, right humerus, right femur, left femur, right tibia surgeries Clinical Quality Measures DVT/VTE Risk/Contraindication: Risk Factor Score Per Nursin RFS Level Per Nursing on Admit: 3=High PHILIPPE BLAIR May 14, 2017 10:47
--- NOTE | 2017-05-14 10:53 | Physician Query Clarification ---
PQ-Present on Admission Admission/Discharge Admission Date: May 12, 2017 at 20:00 Discharge Date: Question: NSTEMI was documented in Dr. Eli's consult on 05/13. Can you specify if this condition was present on admission? If present on admission, please clarify the primary condition responsible for admission after study. 1. Acute respiratory failure 2. NSTEMI 3. Acute on chronic systolic CHF 4. Other (please list) Please document a response below. PHYSICIAN RESPONSE Condition was Present on Admit: No Explanation of clincal finding Troponin did not elevate until several hours after admission, so it is unclear as to the exact timing of the initial NSTEMI, but suspect it occurred around time of admission or shortly after. In responding to this query, please exercise your independent professional judgment. The purpose of this communication is to more accurately reflect the complexity of your patients condition. The fact that a question is asked does not imply that any particular answer is desired or expected. Thank you for your timely response to this clarification. Requestors name: Nicholas THIS PHYSICIAN QUERY FORM IS A PERMANENT PART OF THE MEDICAL RECORD NICHOLAS PARKER May 14, 2017 10:53 JOVAN CASON MD May 14, 2017 13:01
--- NOTE | 2017-05-14 11:04 | Physician Query Clarification ---
PQ-CHF Specificity The medical record reflects the following clinical scenario: History/Risk Factors: Chronic systolic CHF, CAD, Wewiof-Hqbfx-shbte disease, paraplegia, Diabetes mellitus Clinical Findings: acute respiratory distress, chest pain, shortness of breath, BNP 37.7>726.6 Treatment: 80 mg IV Lasix on 05/12 Question: Can you further specify the acuity &/or type of CHF per the clinical indicators above? Please document a response below PHYSICIAN RESPONSE Acuity: Acute Type: Systolic In responding to this query, please exercise your independent professional judgment. The purpose of this communication is to more accurately reflect the complexity of your patients condition. The fact that a question is asked does not imply that any particular answer is desired or expected. Thank you for your timely response to this clarification. Requestors name: Nicholas THIS PHYSICIAN QUERY FORM IS A PERMANENT PART OF THE MEDICAL RECORD NICHOLAS PARKER May 14, 2017 11:04 ISABEL RUBIO MD May 14, 2017 16:38
[2017-05-14] MEDS: FLUTICASONE NASAL SPRAY (FLONASE) 16 GM BTL NS SCH (11:25)
--- NOTE | 2017-05-14 12:29 | Progress Note (SOAP) ---
Subjective Subjective/Events-last exam Afebrile. Had cardiac catheterization yesterday and found to have severe non- ischemic cardiomyopathy with EF 20%. Has been hypotensive afterward, requiring dopamine drip which is being titrated off currently. She did cough up some mucous yesterday and her breathing feels slightly better. Review of Systems Date Seen by Provider: May 14, 2017 Time Seen by Provider: 09:43 Objective Exam Last Set of Vital Signs Vital Signs Date Time Temp Pulse Resp B/P (MAP) Pulse Ox O2 Delivery O2 Flow Rate FiO2 05/14/17 10:00 67 22 91/43 (59) 95 Nasal Cannula 1.00 05/14/17 04:00 96.9 05/13/17 04:00 45 Capillary Refill : Less Than 3 Seconds I&O Intake and Output 05/14/17 00:00 Intake Total 1593 ml Output Total 1300 ml Balance 293 ml Intake Oral 270 ml IV Total 1323 ml Output Urine Total 1300 ml # Bowel Movements 1 General: Alert, No Acute Distress Lungs: Other (ronchi bilaterally) Heart: Regular Rate, No Murmurs Psych/Mental Status: Mental Status NL Results/Procedures Lab Laboratory Tests 05/13/17 15:25: B-Type Natriuretic Peptide 726.6H 05/13/17 21:48: Glucometer 211H 05/13/17 23:31: Glucometer 240H 05/13/17 23:55: Troponin I 0.49*H 05/14/17 03:17: Glucometer 119H 05/14/17 05:10: White Blood Count 4.1L, Red Blood Count 3.71L, Hemoglobin 11.8, Hematocrit 36, Mean Corpuscular Volume 97, Mean Corpuscular Hemoglobin 32, Mean Corpuscular Hemoglobin Concent 33, Red Cell Distribution Width 15.0H, Platelet Count 194, Mean Platelet Volume 10.2, Neutrophils (%) (Auto) 46, Lymphocytes (%) (Auto) 28 , Monocytes (%) (Auto) 26H, Eosinophils (%) (Auto) 0, Basophils (%) (Auto) 0, Neutrophils # (Auto) 1.9, Lymphocytes # (Auto) 1.2, Monocytes # (Auto) 1.1H, Eosinophils # (Auto) 0.0, Basophils # (Auto) 0.0, Neutrophils % (Manual) 53, Lymphocytes % (Manual) 27, Monocytes % (Manual) 16, Eosinophils % (Manual) 0, Basophils % (Manual) 0, Band Neutrophils 1, Reactive Lymphocytes 3, Anisocytosis SLIGHT, Sodium Level 140, Potassium Level 3.0L, Chloride Level 108H , Carbon Dioxide Level 20L, Anion Gap 12, Blood Urea Nitrogen 18, Creatinine 0.42L, Estimat Glomerular Filtration Rate > 60, BUN/Creatinine Ratio 43, Glucose Level 132H, Calcium Level 8.5, Phosphorus Level 2.7, Magnesium Level 2.1 05/14/17 11:13: Glucometer 112H Microbiology 05/12/17 Blood Culture - Preliminary, Resulted No growth 05/12/17 Urine Culture - Preliminary, Resulted Escherichia coli Pseudomonas Aeruginosa Radiology CXR 05/12/17: Read as no acute abnormalities per Radiology Assessment/Plan Assessment/Plan (1) Acute systolic CHF (congestive heart failure) Status: Acute Assessment & Plan: Non-ischemic, started beta millie and sacubitril/valsartan but blood pressure too low to tolerate, started dopamine drip, weaning currently (2) Acute respiratory failure with hypoxia Status: Acute Assessment & Plan: Mucus plugging versus pneumonia, Zosyn started in ER, Dr. Ludwig consulted for Pulm/Critical care Much improved this am, now on 2 lpm nasal cannula. V/Q scan this morning due to contrast dye allergy. 05/14 V/Q scan low probability of PE, stable respiratory status, wean supplemental oxygen as tolerated, continue zosyn (3) Elevated troponin Status: Acute Assessment & Plan: Cardiology consult, recommended cath, patient wanting to wait until respiratory status improved, monitoring troponin, on aspirin and therapeutic enoxaparin 05/14- underwent cardiac cath and found to have nonischemic cardiomyopathy, troponin trending down (4) Urinary tract infection Status: Acute Assessment & Plan: Unclear if infection versus colonization with indwelling catheter, will follow up culture results, continue zosyn (5) Mkogvca-Odiyw-Riics disease Status: Chronic (6) Pressure ulcer of right ischium Status: Chronic Assessment & Plan: Air mattress, dressing changes per home routine (7) Chronic pain Status: Chronic Assessment & Plan: Resume home meds (8) Chronic indwelling Chowdhury catheter Status: Chronic (9) DVT prophylaxis Status: Acute Assessment & Plan: On therapeutic enoxaparin Clinical Quality Measures DVT/VTE Risk/Contraindication: Risk Factor Score Per Nursin RFS Level Per Nursing on Admit: 3=High JOVAN CASON MD May 14, 2017 12:29 pm
[2017-05-14] MEDS: morphine INJ 4 MG/ML 1 ML (VIAL/SYRINGE) IV PRN (12:34)
--- NOTE | 2017-05-14 12:39 | Diagnostic Imaging Report ---
INDICATION: Groin pain status post heart catheterization. COMPARISON: None available. TECHNIQUE: Grayscale, color Doppler and spectral duplex imaging of the right groin was performed. FINDINGS: Color Doppler imaging demonstrates normal flow within the common femoral artery and common femoral vein. Spectral waveform analysis of these vessels is also normal. In the right groin, there is a mixed isoechoic and hypoechoic mass in the subcutaneous tissues which has no internal vascularity and is most indicative of a hematoma. This measures approximately 3.1 x 1.5 cm. There is no pseudoaneurysm. IMPRESSION: 1. Right groin hematoma. 2. No pseudoaneurysm or AV fistula. Dictated by: Dictated on workstation # [id number]
--- NOTE | 2017-05-14 15:56 | Cardiology Progress Note ---
Subjective Date Seen by Provider: May 14, 2017 Time Seen by Provider: 15:53 Subjective/Events-last exam patient is laying down in bed, had some pain in her right groin, ultrasound showed small hematoma. Currently feeling better. Still hypotensive. Denied any abdominal pain. No shortness of breath. Review of Systems General: Fatigue, Malaise HEENT: No Head Aches, No Visual Changes, No Eye Pain, No Ear Pain, No Dysphasia , No Sinus Congestion, No Post Nasal Drip, No Sore Throat, No Other Pulmonary: No Dyspnea, Cough, No Pleuritic Chest Pain, No Other Cardiovascular: No: Chest Pain, Palpitations, Orthopnea, Paroxysmal Noc. Dyspnea, Edema, Lt Headedness, Other Objective-Cardiology Exam Last Set of Vital Signs Vital Signs 05/13/17 05/14/17 05/14/17 05/14/17 04:00 04:00 10:00 13:00 Temp 96.9 Pulse 61 Resp 22 B/P (MAP) 91/43 (59) Pulse Ox 95 O2 Delivery Nasal Cannula O2 Flow Rate 1.00 FiO2 45 Capillary Refill : Less Than 3 Seconds I&O Intake and Output 05/14/17 00:00 Intake Total 1593 ml Output Total 1300 ml Balance 293 ml Intake Oral 270 ml IV Total 1323 ml Output Urine Total 1300 ml # Bowel Movements 1 General: Alert, Oriented X3, Cooperative, Mild Distress HEENT: Atraumatic, PERRLA Neck: Supple, No JVD, No Thyromegaly Lungs: Other (ronchi bilaterally) Heart: Regular Rate, Normal S1, Normal S2, No Murmurs Abdomen: Normal Bowel Sounds, Soft, No Tenderness Extremities: No Clubbing, No Edema Skin: No Rashes, No Significant Lesion Neuro: Normal Speech Psych/Mental Status: Mental Status NL Results Lab Laboratory Tests 05/14/17 05:10 A/P-Cardiology Admission Diagnosis Acute respiratory failure Non-ST elevation myocardial infarction Coronary artery disease Tachycardia Diabetes mellitus Assessment/Plan Acute respiratory failure, improved. Managed by Dr. Ludwig, no signs of pneumonia at this time. Acute chest pain with EKG changes and elevated troponin, patient has Q waves in the anterior leads, has dynamic T-wave, non-ST elevation myocardial infarction, underwent cardiac catheterization yesterday revealin. Severe nonischemic cardiomyopathy with ejection fraction 20 percent, segmental wall motion involving the apex, anteroapical and mid anterior wall and inferoapical segments. 2. Mild to moderate coronary artery disease nonobstructive disease Congestive heart failure, acute left ventricular systolic dysfunction, EF 20 percent. Questionable Takotsubo cardiomyopathy, was started on beta millie, Entresto, however she became hypotensive, patient will be unable to tolerate beta blockers, MALINDA inhibitor and/or ARB due to hypotension and borderline bradycardia. Once she is more stable I will try to introduce medication again. At this point she is on dopamine drip and IV fluid Hypotensive shock, receiving IV fluid. Continue to monitor closely. Tachycardia, secondary to hypoxemia, became borderline bradycardic this morning after receiving beta blockers. Tobaccoism. Nbcjuqp-Wbhvj-Bobao disease, paraplegia History of indwelling urinary catheter with recurrent UTI, recurrent kidney stone with history of kidney stone basket in 2008 and lithotripsy Diabetes mellitus, followed and managed by primary care physician History of decubitus ulcer secondary to immobility with history of MRSA wound Depression Wheelchair bound History of cholecystectomy, genital wound debridement, muscle biopsy, right and left ankle closed reduction, right humerus, right femur, left femur, right tibia surgeries Clinical Quality Measures DVT/VTE Risk/Contraindication: Risk Factor Score Per Nursin RFS Level Per Nursing on Admit: 3=High ISABEL RUBIO MD May 14, 2017 15:56
[2017-05-14] MEDS ORDERED: LIDOCAINE PF 1% 2 ML AMP ONE ×2 (16:13)
[2017-05-14] MEDS ORDERED: LIDOCAINE 1% INJ 20 ML (XYLOCAINE) VIAL ONE (16:15)
[2017-05-14] MEDS ORDERED: LORazepam INJ 2 MG/ML (ATIVAN) VIAL IVP PRN (17:00)
--- NOTE | 2017-05-14 17:06 | Pulmonary Procedures ---
Pulmonary Procedures Date of Procedure Date of Service: May 14, 2017 Lumen: triple (US guided ) Central Line Procedure: betadine prep, sterile drapes applied, sterile dressing applied Position: internal jugular (R) Anesthesia: Lidocaine Volume Anesthetic (ccs): 5 Complications: none Post Position: sutured, good blood return, position confirmed w/ CXR ELMER GODOY DO May 14, 2017 17:06
--- NOTE | 2017-05-14 17:30 | Diagnostic Imaging Report ---
INDICATION: Central line placement. EXAMINATION: Portable chest at 5:11 p.m. FINDINGS: Right IJ central tip projects over the SVC. There are John rods in the spine. There is scoliosis of the thoracic spine convexed to the left. There is minimal left basilar atelectasis. There are no infiltrates, effusions or pneumothoraces. IMPRESSION: No acute abnormalities in the chest. Dictated by: Dictated on workstation # [id number]
[2017-05-14] MEDS: LACTOBACILLUS Acidoph/Bulgar (LACTINEX/FLORANEX) TAB PO SCH (21:03)
[2017-05-14] MEDS: ENOXAPARIN 40 MG/0.4 ML (LOVENOX) SYR SC SCH (21:04)
[2017-05-15] VITALS (34 sets, daily range): BP systolic 72–149; BP diastolic 36–103
[2017-05-15] MEDS: RT-ALBUTEROL/IPRATROPIUM 3 ML (DUONEB) VIAL INH SCH ×6 (01:37→21:20)
[2017-05-15 04:50] LABS: BASOPHILS % (AUTO) 0 % (0-10); EOSINOPHILS % (AUTO) 1 % (0-10); HEMATOCRIT 33 % (35-52); HEMOGLOBIN 10.3 G/DL (11.5-16.0); LYMPHOCYTES # (AUTO) 3.3 X 10^3 (1.0-4.0); LYMPHOCYTES % (AUTO) 51 % (12-44); MEAN CORPUSCULAR HEMOGLOBIN 31 PG (25-34); MEAN CORPUSCULAR HGB CONC 32 G/DL (32-36); MEAN CORPUSCULAR VOLUME 98 FL (80-99); MONOCYTES # (AUTO) 0.8 X 10^3 (0.0-1.0); MONOCYTES % (AUTO) 12 % (0-12); NEUTROPHILS # (AUTO) 2.3 X 10^3 (1.8-7.8); NEUTROPHILS % (AUTO) 36 % (42-75); PLATELET COUNT 160 10^3/uL (130-400); RED BLOOD COUNT 3.32 10^6/uL (4.35-5.85); RED CELL DISTRIBUTION WIDTH 15.4 % (10.0-14.5); WHITE BLOOD COUNT 6.4 10^3/uL (4.3-11.0)
[2017-05-15] MEDS: DOPamine DRIP 400 MG/250 ML D5W (PRE-MIX) IV SCH ×2 (05:04→13:54)
[2017-05-15] MEDS: PIPERACILLIN SODIUM/TAZOBACTAM 4.5 GM in D5W 100 ML IVPB 100 ML IV SCH ×3 (05:05→21:08)
[2017-05-15 05:20] LABS: BUN/CREATININE RATIO 35; CALCIUM 7.7 MG/DL (8.5-10.1); CARBON DIOXIDE 21 MMOL/L (21-32); CHLORIDE 111 MMOL/L (98-107); CREATININE SERUM 0.37 MG/DL (0.60-1.30); GFR ESTIMATED > 60; GLUCOSE 66 MG/DL (70-105); MAGNESIUM 1.9 MG/DL (1.8-2.4); PHOSPHORUS 2.3 MG/DL (2.3-4.7); POTASSIUM 4.6 MMOL/L (3.6-5.0); SODIUM 142 MMOL/L (135-145)
[2017-05-15] MEDS: MAGNESIUM 1 GM/100 ML IVPB 100 ML IV SCH (05:51)
[2017-05-15] MEDS: POTASSIUM CL 10MEQ/50ML IVPB 50 ML IV SCH (05:51)
[2017-05-15] MEDS: KCL 20 MEQ TAB (K-DUR) PO SCH (05:52)
[2017-05-15] MEDS: inSUlin (REGULAR) HUMAN 1 UNIT/0.01 ML (CHARGE PER UNIT) SC SCH ×4 (05:52→21:31)
[2017-05-15] MEDS: PANTOPRAZOLE 40 MG (PROTONIX) TAB PO SCH (06:36)
[2017-05-15] MEDS: NS IV 1000 ML 1,000 ML IV SCH ×2 (06:47→21:10)
--- NOTE | 2017-05-15 06:54 | Pulmonary Progress Note ---
Subjective Time Seen by Provider: 06:54 Exam Exam Vital Signs Date Time Temp Pulse Resp B/P (MAP) Pulse Ox O2 Delivery O2 Flow Rate FiO2 05/15/17 06:00 67 22 96/51 (66) 91 Room Air 05/15/17 05:45 65 21 104/47 (66) 92 Room Air 05/15/17 05:30 64 103/51 (68) 05/15/17 05:15 65 89/52 (64) 05/15/17 05:04 63 82/54 05/15/17 05:00 66 18 95/50 (65) 96 Room Air 05/15/17 04:45 63 18 84/54 (64) 94 Room Air 05/15/17 04:30 64 18 81/46 (58) 93 Room Air 05/15/17 04:00 93 Room Air 05/15/17 04:00 97.3 66 21 93/55 (68) 94 Room Air 05/15/17 03:00 64 20 83/47 (59) 94 Room Air 05/15/17 02:00 97.2 64 18 91/47 (62) 94 05/15/17 01:50 95 Room Air 05/15/17 01:30 67 20 101/52 (68) 96 05/15/17 01:00 65 16 74/47 (56) 95 Room Air 05/15/17 01:00 66 05/15/17 00:00 94 Room Air 05/15/17 00:00 64 21 81/49 (60) 92 Room Air 05/14/17 23:00 80 21 109/54 (72) 93 Room Air 05/14/17 22:00 86 35 97/57 (70) 94 Room Air 05/14/17 21:56 95 Room Air 05/14/17 21:00 102 15 123/61 (81) 91 Room Air 05/14/17 20:00 89 22 103/68 (80) 96 Room Air 05/14/17 20:00 98.0 05/14/17 20:00 93 Room Air 05/14/17 19:07 96 Room Air 05/14/17 19:00 73 05/14/17 19:00 73 17 106/66 (79) 96 Room Air 05/14/17 18:00 68 22 107/77 (87) 97 Nasal Cannula 1.00 05/14/17 17:00 68 24 112/70 (84) 100 Nasal Cannula 1.00 05/14/17 16:00 99 Nasal Cannula 1.00 05/14/17 16:00 71 20 100/61 (74) 100 Nasal Cannula 1.00 05/14/17 15:00 64 18 94/57 (69) 97 Nasal Cannula 1.00 05/14/17 14:00 68 32 85/42 (56) 96 Nasal Cannula 1.00 05/14/17 13:00 59 21 82/52 (62) 97 Nasal Cannula 1.00 05/14/17 13:00 61 05/14/17 12:00 99 Nasal Cannula 1.00 05/14/17 12:00 70 35 91/49 (63) 94 Nasal Cannula 1.00 05/14/17 11:00 59 25 96/59 (71) 94 Nasal Cannula 1.00 05/14/17 10:00 67 22 91/43 (59) 95 Nasal Cannula 1.00 05/14/17 09:00 62 27 88/43 (58) 92 Nasal Cannula 1.00 05/14/17 08:00 54 18 114/64 (81) 94 Nasal Cannula 1.00 05/14/17 08:00 99 Nasal Cannula 1.00 05/14/17 08:00 99 Nasal Cannula 1.00 05/14/17 07:00 54 05/14/17 07:00 61 21 91/53 (66) 96 Nasal Cannula 1.00 05/14/17 06:55 93 High Flow N/C 1.00 I & O 05/15/17 07:00 Intake Total 2506 ml Output Total 2225 ml Balance 281 ml General Appearance: No Apparent Distress, WD/WN, Moderate Distress HEENT: PERRL/EOMI, TMs Normal, Normal ENT Inspection, Pharynx Normal Neck: Full Range of Motion, Normal Inspection, Non Tender Respiratory: Chest Non Tender, Crackles, Decreased Breath Sounds, Respiratory Distress Cardiovascular: No Edema, Normal Peripheral Pulses, Systolic Murmur, Gallop/S3 , Tachycardia Capillary Refill: Less Than 3 Seconds Gastrointestinal: normal bowel sounds, non tender, soft Extremity: Normal Capillary Refill Neurologic/Psychiatric: Alert, No Motor/Sensory Deficits, Normal Mood/Affect Skin: Normal Color, Warm/Dry Lymphatic: No Adenopathy Results Lab Laboratory Tests 05/14/17 05:10 05/15/17 04:30 Assessment/Plan Assessment/Plan Acute respiratory failure probably secondary to bronchospasam or mucous plugging -- much improved -CXR is clear and no leukocytosis or fever -Doubt pneumonia -- -V/Q and dopplers are negative NSTEMI -cardiology following -Will order troponins x 3 Hypotension -Pt is currently on Dopamine at low dose -Will attempt to D/C if pt becomes hypotensive again i would recommend arterial line placement. Cardiomyopathy with EF of 20% Acute UTI with hx of Klebsiella and pseudomonas - Zosyn only for now and await cultures DM II Chronic indwelling mark Paraplegia and wheel chair bound 233 Clinical Quality Measures DVT/VTE Risk/Contraindication: Risk Factor Score Per Nursin RFS Level Per Nursing on Admit: 3=High ELMER GODOY DO May 15, 2017 06:54
--- NOTE | 2017-05-15 07:11 | Diagnostic Imaging Report ---
INDICATION: Pneumonia. Comparison made with prior examination 05/14/17. FINDINGS: There is cardiomegaly. Lungs are clear. There is no pleural effusion or pneumothorax. Mediastinum is unremarkable. There is right internal jugular central venous catheter in place. IMPRESSION: No acute cardiopulmonary abnormality. Cardiomegaly. Dictated by: Dictated on workstation # [id number]
[2017-05-15] MEDS: ASPIRIN E.C. 81 MG (ECOTRIN) TAB PO SCH (08:24)
[2017-05-15] MEDS: FLUTICASONE NASAL SPRAY (FLONASE) 16 GM BTL NS SCH (08:27)
[2017-05-15] MEDS: oxyCODONE/APAP 10/325MG (PERCOCET 10) TABLET PO PRN ×3 (09:21→21:08)
--- NOTE | 2017-05-15 09:36 | Cardiology Progress Note ---
Subjective Date Seen by Provider: May 15, 2017 Time Seen by Provider: 09:34 Subjective/Events-last exam patient is laying down in bed, still having some right groin pain, having some shortness of breath and cough. No significant edema, blood pressure is better today. Review of Systems General: Fatigue, Malaise HEENT: No Head Aches, No Visual Changes, No Eye Pain, No Ear Pain, No Dysphasia , No Sinus Congestion, No Post Nasal Drip, No Sore Throat, No Other Pulmonary: Dyspnea, Cough, No Pleuritic Chest Pain, No Other Cardiovascular: Orthopnea, No: Chest Pain, Palpitations, Paroxysmal Noc. Dyspnea, Edema, Lt Headedness, Other Objective-Cardiology Exam Last Set of Vital Signs Vital Signs 05/13/17 05/14/17 05/15/17 05/15/17 05/15/17 05/15/17 04:00 18:00 06:45 07:00 08:35 08:43 Temp 97.6 Pulse 71 Resp 19 B/P (MAP) 109/56 (73) Pulse Ox 93 O2 Delivery Room Air O2 Flow Rate 1.00 FiO2 45 Capillary Refill : Less Than 3 Seconds I&O Intake and Output 05/15/17 00:00 Intake Total 1225 ml Output Total 2225 ml Balance -1000 ml Intake Oral 900 ml IV Total 325 ml Output Urine Total 2225 ml General: Alert, Oriented X3, Cooperative, Mild Distress HEENT: Atraumatic, PERRLA Neck: Supple, No JVD, No Thyromegaly Lungs: Other (ronchi bilaterally) Heart: Regular Rate, Normal S1, Normal S2, No Murmurs Abdomen: Normal Bowel Sounds, Soft, No Tenderness Extremities: No Clubbing, No Edema Skin: No Rashes, No Significant Lesion Neuro: Normal Speech Psych/Mental Status: Mental Status NL Results Lab Laboratory Tests 05/15/17 04:30 A/P-Cardiology Admission Diagnosis Acute respiratory failure Non-ST elevation myocardial infarction Coronary artery disease Tachycardia Diabetes mellitus Assessment/Plan Acute respiratory failure, improved. Managed by Dr. Ludwig, no signs of pneumonia at this time. Acute chest pain with EKG changes and elevated troponin, patient has Q waves in the anterior leads, has dynamic T-wave, normal coronaries, no significant obstructive disease. No myocardial infarction 1. Severe nonischemic cardiomyopathy with ejection fraction 20 percent, segmental wall motion involving the apex, anteroapical and mid anterior wall and inferoapical segments. 2. Mild to moderate coronary artery disease nonobstructive disease Congestive heart failure, acute left ventricular systolic dysfunction, EF 20 percent. Questionable Takotsubo cardiomyopathy, was started on beta millie, Entresto, however she became hypotensive, patient will be unable to tolerate beta blockers, MALINDA inhibitor and/or ARB due to hypotension and borderline bradycardia. blood pressure is better today, she is off dopamine and drape, I' ll start low-dose metoprolol again and evaluate tolerance and response Shortness of breath, cough, bilateral rhonchi, wet rales at the bases. I will give 10 mg of IV Lasix and evaluate tolerance and response. Hypotensive shock, received IV fluid, currently normotensive. Monitor response to beta blockers and Lasix. Tachycardia, secondary to hypoxemia, became borderline bradycardic after beta blockers, I am restarting beta blockers again and evaluate tolerance and response Tobaccoism by history. Svvhngv-Bahah-Yxmpc disease, paraplegia History of indwelling urinary catheter with recurrent UTI, recurrent kidney stone with history of kidney stone basket in 2008 and lithotripsy Diabetes mellitus, followed and managed by primary care physician History of decubitus ulcer secondary to immobility with history of MRSA wound Depression Wheelchair bound History of cholecystectomy, genital wound debridement, muscle biopsy, right and left ankle closed reduction, right humerus, right femur, left femur, right tibia surgeries Clinical Quality Measures DVT/VTE Risk/Contraindication: Risk Factor Score Per Nursin RFS Level Per Nursing on Admit: 3=High ISABEL RUBIO MD May 15, 2017 09:36
[2017-05-15] MEDS ORDERED: FUROSEMIDE 40 MG/4 ML INJ (LASIX) IVP NR (09:45)
[2017-05-15] MEDS: meTOprolol TARTRATE 25 MG (LOPRESSOR) TABLET PO SCH ×2 (10:02→21:09)
[2017-05-15] MEDS: morphine INJ 4 MG/ML 1 ML (VIAL/SYRINGE) IV PRN (10:44)
--- NOTE | 2017-05-15 10:54 | Diagnostic Imaging Report ---
INDICATION: Shortness of breath Frontal chest obtained at 10:41 hours and, and compared to same day at 439 hours a.m. Prominent cardiomegaly again noted. Right IJ catheter is unchanged. There is no pneumothorax or pleural fluid. There is no focal infiltrate. There appears to be a left-sided seventh rib fracture. IMPRESSION: Prominent cardiomegaly. No focal infiltrate or pneumothorax or pleural fluid. No apparent change compared to earlier today. Dictated by: Dictated on workstation # [id number]
--- NOTE | 2017-05-15 12:57 | Progress Note (SOAP) ---
Subjective Subjective/Events-last exam Not feeling well this morning. The IJ is causing her pain and making it even more difficult to cough than her normal baseline. Her groin is also hurting a lot. She has mucous in her upper airways that she feels she is really having trouble clearing to the point of getting choked and unable to catch her breath. Review of Systems Date Seen by Provider: May 15, 2017 Time Seen by Provider: 09:18 Objective Exam Last Set of Vital Signs Vital Signs Date Time Temp Pulse Resp B/P (MAP) Pulse Ox O2 Delivery O2 Flow Rate FiO2 05/15/17 12:05 92 Vapotherm 10.00 50 05/15/17 11:33 90/58 (69) 05/15/17 09:00 76 9 05/15/17 08:43 97.6 Capillary Refill : Less Than 3 Seconds I&O Intake and Output 05/14/17 23:59 Intake Total 1225 ml Output Total 2225 ml Balance -1000 ml Intake Oral 900 ml IV Total 325 ml Output Urine Total 2225 ml General: Alert, No Acute Distress Lungs: Other (ronchi with increased upper airway noises) Heart: Regular Rate, No Murmurs Psych/Mental Status: Mental Status NL Results/Procedures Lab Laboratory Tests 05/14/17 17:20: Glucometer 63L 05/14/17 22:33: Glucometer 169H 05/15/17 04:30: White Blood Count 6.4, Red Blood Count 3.32L, Hemoglobin 10.3L, Hematocrit 33L, Mean Corpuscular Volume 98, Mean Corpuscular Hemoglobin 31, Mean Corpuscular Hemoglobin Concent 32, Red Cell Distribution Width 15.4H, Platelet Count 160, Mean Platelet Volume 10.0, Neutrophils (%) (Auto) 36L, Lymphocytes (%) (Auto) 51H, Monocytes (%) (Auto) 12, Eosinophils (%) (Auto) 1, Basophils (%) (Auto) 0, Neutrophils # (Auto) 2.3, Lymphocytes # (Auto) 3.3, Monocytes # (Auto) 0.8, Eosinophils # (Auto) 0.0, Basophils # (Auto) 0.0, Sodium Level 142, Potassium Level 4.6, Chloride Level 111H, Carbon Dioxide Level 21, Anion Gap 10, Blood Urea Nitrogen 13, Creatinine 0.37L, Estimat Glomerular Filtration Rate > 60, BUN /Creatinine Ratio 35, Glucose Level 66L, Calcium Level 7.7L, Phosphorus Level 2.3, Magnesium Level 1.9 05/15/17 11:29: Glucometer 124H Microbiology 05/12/17 Blood Culture - Preliminary, Resulted No growth 05/12/17 Urine Culture - Final, Complete Escherichia coli Pseudomonas Aeruginosa Radiology CXR 05/12/17: Read as no acute abnormalities per Radiology Assessment/Plan Assessment/Plan (1) Acute systolic CHF (congestive heart failure) Status: Acute Assessment & Plan: Non-ischemic, started beta millie and sacubitril/valsartan but blood pressure too low to tolerate, started dopamine drip, weaning currently 2/2 off dopamine drip, restart low dose metoprolol per Dr. Eli (2) Acute respiratory failure with hypoxia Status: Acute Assessment & Plan: Mucus plugging versus pneumonia, Zosyn started in ER, Dr. Ludwig consulted for Pulm/Critical care Much improved this am, now on 2 lpm nasal cannula. V/Q scan this morning due to contrast dye allergy. 05/14 V/Q scan low probability of PE, stable respiratory status, wean supplemental oxygen as tolerated, continue zosyn 2/2 has weak cough in general, worse currently and with increased mucous and difficulty clearing, continue flonase, use acapella, consider mucomyst and chest physiotherapy if needed (3) Elevated troponin Status: Acute Assessment & Plan: Cardiology consult, recommended cath, patient wanting to wait until respiratory status improved, monitoring troponin, on aspirin and therapeutic enoxaparin 05/14- underwent cardiac cath and found to have nonischemic cardiomyopathy, troponin trending down (4) Urinary tract infection Status: Acute Assessment & Plan: Unclear if infection versus colonization with indwelling catheter, will follow up culture results, continue zosyn 2/2 E coli and pseudomonas both sensitive to zosyn (5) Aubjezo-Uiyax-Nbdjc disease Status: Chronic (6) Pressure ulcer of right ischium Status: Chronic Assessment & Plan: Air mattress, dressing changes per home routine (7) Chronic pain Status: Chronic Assessment & Plan: Resume home meds (8) Chronic indwelling Chowdhury catheter Status: Chronic (9) DVT prophylaxis Status: Acute Assessment & Plan: Enoxaparin Clinical Quality Measures DVT/VTE Risk/Contraindication: Risk Factor Score Per Nursin RFS Level Per Nursing on Admit: 3=High JOVAN CASON MD May 15, 2017 12:57 pm
[2017-05-15] MEDS: LACTOBACILLUS Acidoph/Bulgar (LACTINEX/FLORANEX) TAB PO SCH (21:07)
[2017-05-15] MEDS: ENOXAPARIN 40 MG/0.4 ML (LOVENOX) SYR SC SCH (21:09)
[2017-05-15] MEDS: ALPRAZolam 0.5 MG (XANAX) TAB PO PRN (22:41)
[2017-05-16] VITALS (29 sets, daily range): BP systolic 81–122; BP diastolic 40–77
[2017-05-16] MEDS ORDERED: FUROSEMIDE 40 MG/4 ML INJ (LASIX) IV ONE (00:15)
[2017-05-16] MEDS ORDERED: aCETylcysteine 20% (MUCOMYST) 30ML SOLN VIAL INH ONE (00:15)
[2017-05-16] MEDS ORDERED: guaiFENesin SYRUP 100 MG/5 ML 10 ML (ROBITUSSIN SF) PO PRN (00:15)
[2017-05-16] MEDS: RT-ALBUTEROL/IPRATROPIUM 3 ML (DUONEB) VIAL INH SCH ×6 (01:14→22:27)
[2017-05-16] MEDS: NS IV 1000 ML 1,000 ML IV SCH ×2 (04:31→14:33)
[2017-05-16] MEDS: PIPERACILLIN SODIUM/TAZOBACTAM 4.5 GM in D5W 100 ML IVPB 100 ML IV SCH ×3 (04:31→21:02)
[2017-05-16 05:09] LABS: BASOPHILS % (AUTO) 0 % (0-10); EOSINOPHILS # (AUTO) 0.1 10^3/uL (0.0-0.3); EOSINOPHILS % (AUTO) 1 % (0-10); HEMATOCRIT 30 % (35-52); HEMOGLOBIN 9.4 G/DL (11.5-16.0); LYMPHOCYTES # (AUTO) 2.8 X 10^3 (1.0-4.0); LYMPHOCYTES % (AUTO) 33 % (12-44); MEAN CORPUSCULAR HEMOGLOBIN 31 PG (25-34); MEAN CORPUSCULAR HGB CONC 31 G/DL (32-36); MEAN CORPUSCULAR VOLUME 98 FL (80-99); MONOCYTES % (AUTO) 11 % (0-12); NEUTROPHILS # (AUTO) 4.7 X 10^3 (1.8-7.8); NEUTROPHILS % (AUTO) 55 % (42-75); PLATELET COUNT 166 10^3/uL (130-400); RED BLOOD COUNT 3.07 10^6/uL (4.35-5.85); RED CELL DISTRIBUTION WIDTH 14.9 % (10.0-14.5); WHITE BLOOD COUNT 8.5 10^3/uL (4.3-11.0)
[2017-05-16 05:41] LABS: BUN/CREATININE RATIO 23; CALCIUM 8.1 MG/DL (8.5-10.1); CARBON DIOXIDE 24 MMOL/L (21-32); CHLORIDE 106 MMOL/L (98-107); CREATININE SERUM 0.39 MG/DL (0.60-1.30); GFR ESTIMATED > 60; GLUCOSE 141 MG/DL (70-105); MAGNESIUM 1.9 MG/DL (1.8-2.4); PHOSPHORUS 2.5 MG/DL (2.3-4.7); POTASSIUM 3.9 MMOL/L (3.6-5.0); SODIUM 140 MMOL/L (135-145)
[2017-05-16] MEDS: KCL 20 MEQ TAB (K-DUR) PO SCH (05:43)
[2017-05-16] MEDS: POTASSIUM CL 10MEQ/50ML IVPB 50 ML IV SCH (05:43)
[2017-05-16] MEDS: MAGNESIUM 1 GM/100 ML IVPB 100 ML IV SCH (05:44)
[2017-05-16] MEDS: inSUlin (REGULAR) HUMAN 1 UNIT/0.01 ML (CHARGE PER UNIT) SC SCH ×4 (05:44→21:05)
--- NOTE | 2017-05-16 07:02 | Pulmonary Progress Note ---
Subjective Time Seen by Provider: 07:09 Subjective/Events-last exam Pt is requiring more oxygen. Exam Exam Vital Signs Date Time Temp Pulse Resp B/P (MAP) Pulse Ox O2 Delivery O2 Flow Rate FiO2 05/16/17 06:00 91 22 91/54 (66) 95 Vapotherm 50.00 10.00 05/16/17 05:00 94 18 99/53 (68) 95 Vapotherm 50.00 10.00 05/16/17 04:00 97.3 95 21 91/53 (66) 92 Vapotherm 50.00 10.00 05/16/17 04:00 93 Vapotherm 10.00 50 05/16/17 03:00 86 18 91/44 (60) 94 Vapotherm 50.00 10.00 05/16/17 02:00 90 35 88/45 (59) 91 Vapotherm 50.00 10.00 05/16/17 01:14 96 Vapotherm 10.00 50 05/16/17 01:00 83 05/16/17 01:00 82 22 88/55 (66) 98 Vapotherm 50.00 10.00 05/16/17 00:00 92 Vapotherm 10.00 50 05/16/17 00:00 92 23 98/50 (66) 92 Vapotherm 50.00 10.00 05/16/17 00:00 97.2 93 18 97/77 (84) 92 Vapotherm 50.00 10.00 05/15/17 23:00 89 26 94/36 (55) 93 Vapotherm 50.00 10.00 05/15/17 22:00 94 25 116/47 (70) 95 Vapotherm 50.00 10.00 05/15/17 21:21 94 Vapotherm 10.00 50 05/15/17 21:00 85 21 103/50 (67) 96 Vapotherm 50.00 10.00 05/15/17 20:00 92 Vapotherm 10.00 50 05/15/17 20:00 97.4 05/15/17 20:00 80 28 94/48 (63) 95 Vapotherm 50.00 10.00 05/15/17 19:00 87 05/15/17 19:00 82 28 99/49 (66) 94 Vapotherm 50.00 10.00 05/15/17 18:03 95 Vapotherm 10.00 50 05/15/17 18:00 90 15 92/50 (64) 95 Vapotherm 50.00 10.00 05/15/17 17:22 97.1 Vapotherm 50.00 10.00 05/15/17 17:00 89 19 113/62 (79) 96 Vapotherm 50.00 10.00 05/15/17 16:20 92 Vapotherm 15.00 55 05/15/17 16:00 90 32 118/70 (86) 91 Vapotherm 50.00 10.00 05/15/17 15:00 74 29 79/42 (54) 93 Vapotherm 50.00 10.00 05/15/17 14:41 96 Room Air 05/15/17 14:07 97.4 Vapotherm 50.00 10.00 05/15/17 14:00 65 22 78/49 (59) 97 Vapotherm 50.00 10.00 05/15/17 13:54 82/54 05/15/17 13:00 68 20 98/48 (65) 98 Vapotherm 50.00 10.00 05/15/17 13:00 69 05/15/17 12:05 92 Vapotherm 10.00 50 05/15/17 12:00 75 17 92/54 (67) 97 Vapotherm 50.00 10.00 05/15/17 11:33 90/58 (69) Vapotherm 50.00 10.00 05/15/17 11:00 87 22 72/49 (57) 93 Room Air 05/15/17 10:47 94 Vapotherm 10.00 50 05/15/17 10:00 103 27 149/103 (118) 94 Room Air 05/15/17 09:32 95 Room Air 05/15/17 09:00 76 9 124/87 (99) 96 Room Air 05/15/17 08:43 97.6 Room Air 05/15/17 08:35 93 Room Air 05/15/17 08:00 66 27 101/57 (72) 95 Room Air 05/15/17 07:00 71 05/15/17 07:00 72 21 92/62 (72) 92 Room Air I & O 05/16/17 07:00 Intake Total 1575 ml Output Total 4450 ml Balance -2875 ml General Appearance: No Apparent Distress, WD/WN, Moderate Distress HEENT: PERRL/EOMI, TMs Normal, Normal ENT Inspection, Pharynx Normal Neck: Full Range of Motion, Normal Inspection, Non Tender Respiratory: Chest Non Tender, Crackles, Decreased Breath Sounds, Respiratory Distress Cardiovascular: No Edema, Normal Peripheral Pulses, Systolic Murmur, Gallop/S3 , Tachycardia Capillary Refill: Less Than 3 Seconds Gastrointestinal: normal bowel sounds, non tender, soft Extremity: Normal Capillary Refill Neurologic/Psychiatric: Alert, No Motor/Sensory Deficits, Normal Mood/Affect Skin: Normal Color, Warm/Dry Lymphatic: No Adenopathy Results Lab Laboratory Tests 05/15/17 04:30 05/16/17 05:00 Assessment/Plan Assessment/Plan Acute respiratory failure probably secondary to bronchospasam or mucous plugging -- much improved -CXR is clear and no leukocytosis or fever -Doubt pneumonia -- -V/Q and dopplers are negative -Start SOlumedrol 40 IV Q 12 -Mucinex, Mucomyst NSTEMI -cardiology following -Will order troponins x 3 Hypotension -Pt is currently on Dopamine at low dose -Continue to monitor Cardiomyopathy with EF of 20% Acute UTI with hx of Klebsiella and pseudomonas - Zosyn only for now and await cultures DM II Chronic indwelling mark Paraplegia and wheel chair bound 233 Clinical Quality Measures DVT/VTE Risk/Contraindication: Risk Factor Score Per Nursin RFS Level Per Nursing on Admit: 3=High ELMER GODOY DO May 16, 2017 07:02
[2017-05-16] MEDS: PANTOPRAZOLE 40 MG (PROTONIX) TAB PO SCH (07:19)
--- NOTE | 2017-05-16 09:35 | Diagnostic Imaging Report ---
INDICATION: Followup pneumonia. COMPARISON: 05/15/2017. FINDINGS: Right IJ at the upper SVC. There is an opacity in the left lung base medially partially obscuring that diaphragm. This could be pneumonia or partial atelectasis. The right lung is clear. IMPRESSION: Left basilar infiltrate or atelectasis present otherwise clear chest. Dictated by: Dictated on workstation # [id number]
--- NOTE | 2017-05-16 10:35 | Progress Note (SOAP) ---
Subjective Subjective/Events-last exam This morning the patient reports that she has been experiencing sharp pain across her chest for the last few hours. She has a difficult time specifying when it started, she thinks it was around 8:30 or 9:00. Denies nausea. No vomiting, but states appetite is poor. Is short of breath, but not more than she feels she has been for the last day or so. Is weak in general, had Mucomyst x1 last night and thought it helped some; had it ordered this morning by Dr. Ludwig. Currently on FiO2 50% Vapotherm. Review of Systems Date Seen by Provider: May 16, 2017 Time Seen by Provider: 10:20 General: No Chills, No Night Sweats, Fatigue, Appetite (poor) HEENT: No Head Aches, No Visual Changes, No Eye Pain, No Ear Pain, No Dysphasia Pulmonary: Dyspnea, Cough, No Pleuritic Chest Pain Cardiovascular: Chest Pain, No: Edema Gastrointestinal: No: Nausea, Vomiting, Abdominal Pain Genitourinary: Other (chronic indwelling mark) Neurological: No: Change in speech, Seizures Objective Exam Last Set of Vital Signs Vital Signs Date Time Temp Pulse Resp B/P (MAP) Pulse Ox O2 Delivery O2 Flow Rate FiO2 05/16/17 09:19 87 95 50 05/16/17 09:00 34 90/46 (61) Vapotherm 50.00 10.00 05/16/17 04:00 97.3 Capillary Refill : Less Than 3 Seconds I&O Intake and Output 05/16/17 00:00 Intake Total 2431 ml Output Total 3050 ml Balance -619 ml Intake Oral 975 ml IV Total 1456 ml Output Urine Total 3050 ml General: Alert, Oriented X3, Cooperative, Mild Distress HEENT: Atraumatic, EOMI, Mucous Memb Moist/[place] Neck: Supple, No Thyromegaly Lungs: Other (diminished but clear throughout) Heart: Regular Rate, Normal S1, Normal S2, Other (sinus tach per telemetry with no changes from previous) Abdomen: Normal Bowel Sounds, Soft, No Tenderness, No Hepatosplenomegaly, No Masses Extremities: No Clubbing, No Tenderness/Swelling Skin: No Rashes, No Significant Lesion Neuro: Normal Speech, Cranial Nerves 3-12 NL Psych/Mental Status: Mental Status NL, Mood NL Results/Procedures Lab Laboratory Tests 05/15/17 11:29: Glucometer 124H 05/15/17 17:19: Glucometer 186H 05/15/17 21:25: Glucometer 182H 05/16/17 05:00: White Blood Count 8.5, Red Blood Count 3.07L, Hemoglobin 9.4L, Hematocrit 30L, Mean Corpuscular Volume 98, Mean Corpuscular Hemoglobin 31, Mean Corpuscular Hemoglobin Concent 31L, Red Cell Distribution Width 14.9H, Platelet Count 166, Mean Platelet Volume 10.0, Neutrophils (%) (Auto) 55, Lymphocytes (%) (Auto) 33 , Monocytes (%) (Auto) 11, Eosinophils (%) (Auto) 1, Basophils (%) (Auto) 0, Neutrophils # (Auto) 4.7, Lymphocytes # (Auto) 2.8, Monocytes # (Auto) 1.0, Eosinophils # (Auto) 0.1, Basophils # (Auto) 0.0, Sodium Level 140, Potassium Level 3.9, Chloride Level 106, Carbon Dioxide Level 24, Anion Gap 10, Blood Urea Nitrogen 9, Creatinine 0.39L, Estimat Glomerular Filtration Rate > 60, BUN/ Creatinine Ratio 23, Glucose Level 141H, Calcium Level 8.1L, Phosphorus Level 2.5, Magnesium Level 1.9 05/16/17 07:35: B-Type Natriuretic Peptide 210.3H Microbiology 05/12/17 Blood Culture - Preliminary, Resulted No growth 05/12/17 Urine Culture - Final, Complete Escherichia coli Pseudomonas Aeruginosa Radiology CXR negative Procedures Right IJ placement due to difficult vascular access and need for pressors Assessment/Plan Assessment/Plan Admission Dx Acute Respiratory Distress (1) Acute systolic CHF (congestive heart failure) Status: Acute Assessment & Plan: Non-ischemic, started beta millie and sacubitril/valsartan but blood pressure too low to tolerate, started dopamine drip, weaning currently 2/2 off dopamine drip, restart low dose metoprolol per Dr. Eli 05/16 BP remains stable but soft, off dopamine for >24 hours; cardiology continues to follow and actively manage (2) Acute respiratory failure with hypoxia Status: Acute Assessment & Plan: Mucus plugging versus pneumonia, Zosyn started in ER, Dr. Ludwig consulted for Pulm/Critical care Much improved this am, now on 2 lpm nasal cannula. V/Q scan this morning due to contrast dye allergy. 2 V/Q scan low probability of PE, stable respiratory status, wean supplemental oxygen as tolerated, continue zosyn 2/2 has weak cough in general, worse currently and with increased mucous and difficulty clearing, continue flonase, use acapella, consider mucomyst and chest physiotherapy if needed 2/3 -currently on FiO2 50% Vapotherm -Mucomyst and IV Solumedrol started by Dr. Ludwig this morning -BNP 210 this AM -if unable to wean down FiO2 at all, consider chest physiotherapy -will continue to defer pulmonary management to Dr. Ludwig (3) Elevated troponin Status: Resolved Assessment & Plan: Cardiology consult, recommended cath, patient wanting to wait until respiratory status improved, monitoring troponin, on aspirin and therapeutic enoxaparin 2- underwent cardiac cath and found to have nonischemic cardiomyopathy, troponin trending down 2/3 -patient reported chest pain this AM -stat troponin ordered, negative -cardiology notified of patient complaints (4) Urinary tract infection Status: Acute Assessment & Plan: Unclear if infection versus colonization with indwelling catheter, will follow up culture results, continue zosyn 2/2 E coli and pseudomonas both sensitive to zosyn 2/3 -Day 4 Zosyn, continue antibiotics Qualifiers: (5) Ukalqvq-Ubkvj-Dooae disease Status: Chronic (6) Pressure ulcer of right ischium Status: Chronic Assessment & Plan: Air mattress, dressing changes per home routine (7) Chronic pain Status: Chronic Assessment & Plan: Resume home meds Qualifiers: Qualified Codes: G89.4 - Chronic pain syndrome (8) Chronic indwelling Mark catheter Status: Chronic (9) DVT prophylaxis Status: Acute Assessment & Plan: Enoxaparin Clinical Quality Measures DVT/VTE Risk/Contraindication: Risk Factor Score Per Nursin RFS Level Per Nursing on Admit: 3=High MARISA BLANDON DO May 16, 2017 10:35
[2017-05-16] MEDS: LORATADINE (CLARITIN) 10 MG TAB PO SCH (11:03)
[2017-05-16] MEDS: methylPREDNISolone 40 MG/ML (Solu-MEDROL) VIAL IV SCH ×2 (11:03→21:03)
[2017-05-16] MEDS: aCETylcysteine 20% (MUCOMYST) 30ML SOLN VIAL INH SCH ×4 (11:03→22:27)
[2017-05-16] MEDS: morphine INJ 4 MG/ML 1 ML (VIAL/SYRINGE) IV PRN ×2 (11:03→17:30)
[2017-05-16] MEDS: ASPIRIN E.C. 81 MG (ECOTRIN) TAB PO SCH (11:03)
[2017-05-16] MEDS: oxyCODONE/APAP 10/325MG (PERCOCET 10) TABLET PO PRN ×2 (11:03→21:05)
[2017-05-16] MEDS: FLUTICASONE NASAL SPRAY (FLONASE) 16 GM BTL NS SCH (11:04)
[2017-05-16] MEDS: DOPamine DRIP 400 MG/250 ML D5W (PRE-MIX) IV SCH (11:08)
[2017-05-16] MEDS: meTOprolol TARTRATE 25 MG (LOPRESSOR) TABLET PO SCH ×2 (11:11→20:26)
--- NOTE | 2017-05-16 14:22 | Cardiology Progress Note ---
Cardiology SOAP Progress Note Subjective: chest pain this morning. Objective: I&O/Vital Signs Vital Sign - Last 12Hours 05/16/17 05/16/17 05/16/17 05/16/17 03:00 04:00 04:00 05:00 Temp 97.3 Pulse 86 95 94 Resp 18 21 18 B/P (MAP) 91/44 (60) 91/53 (66) 99/53 (68) Pulse Ox 94 93 92 95 O2 Delivery Vapotherm Vapotherm Vapotherm Vapotherm O2 Flow Rate 50.00 10.00 50.00 50.00 10.00 10.00 10.00 FiO2 50 05/16/17 05/16/17 05/16/17 05/16/17 06:00 07:00 07:00 07:40 Pulse 91 83 83 Resp 22 22 B/P (MAP) 91/54 (66) 95/55 (68) Pulse Ox 95 96 95 O2 Delivery Vapotherm Vapotherm Vapotherm O2 Flow Rate 50.00 50.00 10.00 10.00 10.00 FiO2 50 05/16/17 05/16/1705/16/05/16/17 08:00 08:55 09:00 09:19 Pulse 95 85 87 Resp 24 34 B/P (MAP) 108/58 (75) 90/46 (61) Pulse Ox 95 93 94 95 O2 Delivery Vapotherm Vapotherm Vapotherm O2 Flow Rate 50.00 10.00 50.00 10.00 10.00 FiO2 50 50 05/16/1705/16/05/16/05/16/17 10:00 11:00 11:04 11:08 Pulse 88 85 Resp 30 25 B/P (MAP) 101/58 (72) 109/59 (76) 99/67 Pulse Ox 95 95 95 O2 Delivery Vapotherm Vapotherm Vapotherm O2 Flow Rate 50.00 50.00 10.00 10.00 10.00 FiO2 50 18 05/16/17 05/16/17 05/16/17 12:00 12:20 13:00 13:00 Pulse 89 89 89 Resp 27 22 B/P (MAP) 122/63 (82) 113/59 (77) Pulse Ox 93 93 94 O2 Delivery Vapotherm Vapotherm Vapotherm O2 Flow Rate 50.00 10.00 50.00 10.00 10.00 FiO2 50 Intake and Output 05/16/17 00:00 Intake Total 575 ml Output Total 1300 ml Balance -725 ml Weight (Pounds): 139 Weight (Ounces): 10.0 Weight (Calculated Kilograms): [id number] Constitutional: AAO x 3, well-developed Respiratory: lungs clear to percussion, lungs clear to auscultation Cardiovascular: regular rate-rhythm, No irregularly irregular, No extra beats, No parasternal heave is noted, No JVD, No edema, No bradycardia, No tachycardia , No point of maximal impulse, No cardiac thrills are palpable, S1 and S2, No gallop/S3, No gallop/S4, No diastolic murmur, No systolic murmur, No friction rub, No click, No other Gastrointestional: No tender, No soft, No round, No distended, No pulsatile mass, No organomegaly, No guarding, No rebound, No tenderness, No hernia, No mass, No audible bowel sounds, No abnormal bowel sounds, No abdominal bruits, No spleenomegaly, No other Genital/Rectal: other (INDWELLING LANDRUM WITH LEG BAG) Extremities: No normal range of motion, No non-tender, No normal inspection, No pedal edema, No calf tenderness, No normal capillary refill, No pelvis stable , No calf tenderness, No inflammation, No pedal edema, No slow capillary refill , No swelling, No other, No abrasion, No clubbing, No cyanosis, No ecchymosis, No laceration, No no lower extremity edema bilateral, No significant edema, No tenderness, No wound Neurologic/Psychiatric: No die set up worker II-XII nml as tested, No no motor/sensory deficits, No alert, No normal mood/affect, No oriented x 3, No abnormal cerebellar tests, No abnormal die set up worker II-XII, No abnormal gait, No aphasia, No EOM palsy, No facial droop, No motor weakness, No sensory deficit, No depressed affect, No disoriented x 3, No other, No grossly intact, No power is 5/5 both on sides Skin: No normal color, No warm/dry, No cyanosis, No cool, No diaphoresis, No damp, No ecchymosis, No jaundice, No mottled, No pallor, No rash, No tattoos/ piercings, No ulcerations, No rash on exposed areas, No ulcerations on exposed areas, No other Results/Procedures: Labs Laboratory Tests 05/15/17 17:19: Glucometer 186H 05/15/17 21:25: Glucometer 182H 05/16/17 05:00: White Blood Count 8.5, Red Blood Count 3.07L, Hemoglobin 9.4L, Hematocrit 30L, Mean Corpuscular Volume 98, Mean Corpuscular Hemoglobin 31, Mean Corpuscular Hemoglobin Concent 31L, Red Cell Distribution Width 14.9H, Platelet Count 166, Mean Platelet Volume 10.0, Neutrophils (%) (Auto) 55, Lymphocytes (%) (Auto) 33 , Monocytes (%) (Auto) 11, Eosinophils (%) (Auto) 1, Basophils (%) (Auto) 0, Neutrophils # (Auto) 4.7, Lymphocytes # (Auto) 2.8, Monocytes # (Auto) 1.0, Eosinophils # (Auto) 0.1, Basophils # (Auto) 0.0, Sodium Level 140, Potassium Level 3.9, Chloride Level 106, Carbon Dioxide Level 24, Anion Gap 10, Blood Urea Nitrogen 9, Creatinine 0.39L, Estimat Glomerular Filtration Rate > 60, BUN/ Creatinine Ratio 23, Glucose Level 141H, Calcium Level 8.1L, Phosphorus Level 2.5, Magnesium Level 1.9 05/16/17 07:35: B-Type Natriuretic Peptide 210.3H 05/16/17 11:08: Glucometer 138H, Troponin I < 0.30 Microbiology 05/12/17 Blood Culture - Preliminary, Resulted No growth 05/12/17 Urine Culture - Final, Complete Escherichia coli Pseudomonas Aeruginosa A/P: Assessment/Dx: Acute respiratory failure Non-ST elevation myocardial infarction Coronary artery disease Tachycardia Diabetes mellitus Plan: Acute respiratory failure, improved. Managed by Dr. Ludwig. Acute chest pain with EKG changes and elevated troponin, patient has Q waves in the anterior leads, has dynamic T-wave, normal coronaries, no significant obstructive disease. No myocardial infarction 1. Severe nonischemic cardiomyopathy with ejection fraction 20 percent, segmental wall motion involving the apex, anteroapical and mid anterior wall and inferoapical segments. 2. Mild to moderate coronary artery disease nonobstructive disease Congestive heart failure, acute left ventricular systolic dysfunction, EF 20 percent. Questionable Takotsubo cardiomyopathy, was started on beta millie, Entresto, however she became hypotensive, patient will be unable to tolerate beta blockers, MALINDA inhibitor and/or ARB due to hypotension and borderline bradycardia. blood pressure is better today, gradually taper off dopamine. Shortness of breath, cough, bilateral rhonchi, wet rales at the bases. Hypotensive shock, received IV fluid, currently normotensive. Monitor response to beta blockers and Lasix. Tachycardia, secondary to hypoxemia, became borderline bradycardic after beta blockers, I am restarting beta blockers again and evaluate tolerance and response Tobaccoism by history. Pnhvdqj-Bijjg-Ljrar disease, paraplegia History of indwelling urinary catheter with recurrent UTI, recurrent kidney stone with history of kidney stone basket in 2008 and lithotripsy Diabetes mellitus, followed and managed by primary care physician History of decubitus ulcer secondary to immobility with history of MRSA wound Depression Wheelchair bound History of cholecystectomy, genital wound debridement, muscle biopsy, right and left ankle closed reduction, right humerus, right femur, left femur, right tibia surgeries Thank you for your consultation. Please call me if you have any questions. Morgan Mcgowan MD, FACP, FACC, FSCAI, FHRS, CCDS Interventional Cardiology Cardiac Electrophysiology Vascular Medicine and Endovascular Interventions Margaret MCGOWAN MD May 16, 2017 2:22 pm
[2017-05-16] MEDS: ALPRAZolam 0.5 MG (XANAX) TAB PO PRN ×2 (16:41→21:04)
[2017-05-16] MEDS: LACTOBACILLUS Acidoph/Bulgar (LACTINEX/FLORANEX) TAB PO SCH (21:04)
[2017-05-16] MEDS: ENOXAPARIN 40 MG/0.4 ML (LOVENOX) SYR SC SCH (21:04)
[2017-05-16] MEDS: MONTELUKAST 10 MG (SINGULAIR) TAB PO SCH (21:04)
[2017-05-17] VITALS (25 sets, daily range): BP systolic 91–162; BP diastolic 51–94
[2017-05-17] MEDS: NS IV 1000 ML 1,000 ML IV SCH ×3 (01:05→21:21)
[2017-05-17] MEDS: RT-ALBUTEROL/IPRATROPIUM 3 ML (DUONEB) VIAL INH SCH ×6 (03:35→22:16)
[2017-05-17] MEDS: aCETylcysteine 20% (MUCOMYST) 30ML SOLN VIAL INH SCH ×6 (03:35→22:16)
[2017-05-17 04:22] LABS: BASOPHILS % (AUTO) 0 % (0-10); EOSINOPHILS % (AUTO) 0 % (0-10); HEMATOCRIT 26 % (35-52); LYMPHOCYTES # (AUTO) 0.7 X 10^3 (1.0-4.0); LYMPHOCYTES % (AUTO) 13 % (12-44); MEAN CORPUSCULAR HEMOGLOBIN 31 PG (25-34); MEAN CORPUSCULAR HGB CONC 31 G/DL (32-36); MEAN CORPUSCULAR VOLUME 99 FL (80-99); MEAN PLATELET VOLUME 10.1 FL (7.4-10.4); MONOCYTES # (AUTO) 0.2 X 10^3 (0.0-1.0); MONOCYTES % (AUTO) 3 % (0-12); NEUTROPHILS # (AUTO) 4.5 X 10^3 (1.8-7.8); NEUTROPHILS % (AUTO) 85 % (42-75); PLATELET COUNT 131 10^3/uL (130-400); RED BLOOD COUNT 2.58 10^6/uL (4.35-5.85); RED CELL DISTRIBUTION WIDTH 14.8 % (10.0-14.5); WHITE BLOOD COUNT 5.4 10^3/uL (4.3-11.0)
[2017-05-17 05:04] LABS: BUN/CREATININE RATIO 19; CALCIUM 8.4 MG/DL (8.5-10.1); CARBON DIOXIDE 23 MMOL/L (21-32); CHLORIDE 107 MMOL/L (98-107); CREATININE SERUM 0.36 MG/DL (0.60-1.30); GFR ESTIMATED > 60; GLUCOSE 136 MG/DL (70-105); PHOSPHORUS 1.9 MG/DL (2.3-4.7); POTASSIUM 3.8 MMOL/L (3.6-5.0); SODIUM 139 MMOL/L (135-145)
[2017-05-17] MEDS: POTASSIUM CL 10MEQ/50ML IVPB 50 ML IV SCH (05:05)
[2017-05-17] MEDS: MAGNESIUM 1 GM/100 ML IVPB 100 ML IV SCH (05:05)
[2017-05-17] MEDS: KCL 20 MEQ TAB (K-DUR) PO SCH (05:05)
[2017-05-17] MEDS: inSUlin (REGULAR) HUMAN 1 UNIT/0.01 ML (CHARGE PER UNIT) SC SCH ×4 (05:06→21:02)
[2017-05-17] MEDS: PIPERACILLIN SODIUM/TAZOBACTAM 4.5 GM in D5W 100 ML IVPB 100 ML IV SCH ×3 (05:23→21:03)
[2017-05-17] MEDS: methylPREDNISolone 40 MG/ML (Solu-MEDROL) VIAL IV SCH ×2 (08:48→21:03)
[2017-05-17] MEDS: PANTOPRAZOLE 40 MG (PROTONIX) TAB PO SCH (08:48)
[2017-05-17] MEDS: ASPIRIN E.C. 81 MG (ECOTRIN) TAB PO SCH (08:48)
[2017-05-17] MEDS: LORATADINE (CLARITIN) 10 MG TAB PO SCH (08:48)
[2017-05-17] MEDS: FLUTICASONE NASAL SPRAY (FLONASE) 16 GM BTL NS SCH (08:48)
--- NOTE | 2017-05-17 09:25 | Progress Note (SOAP) ---
Subjective Subjective/Events-last exam This morning the patient is sitting up in bed. She has just been bathed by the nursing staff and is in very good spirits. She reports that she is feeling much better today. She reports she doesn't have many complaints this morning, other than being fatigued. She reports that her pain is much better today. When asked where she was having pain, she reports that previously she had significant pain in her right groin that made her unable to sit up in bed, because if she sat up too far she had sharp stabbing pain. She reports she has been having this pain since her cardiac cath, but it has gotten progressively better day by day. Today she reports it is much better and she is able to sit up with minimal discomfort. She denies chest pain today. She reports that she is able to cough up some secretions today, and feels that the Mucomyst is working. She had no acute events overnight and there are no concerns from the nursing staff. Review of Systems Date Seen by Provider: May 17, 2017 Time Seen by Provider: 10:30 General: No Chills, No Night Sweats, Fatigue HEENT: No Head Aches, No Visual Changes, No Eye Pain, No Ear Pain, No Dysphasia Pulmonary: No Dyspnea Cardiovascular: No: Chest Pain, Palpitations Gastrointestinal: No: Nausea, Vomiting, Abdominal Pain, Diarrhea, Constipation Genitourinary: Other (chronic indwelling mark) Musculoskeletal: other (right groin pain that has improved from previous days) Neurological: No: Incoordination, Change in speech, Confusion, Seizures Objective Exam Last Set of Vital Signs Vital Signs Date Time Temp Pulse Resp B/P (MAP) Pulse Ox O2 Delivery O2 Flow Rate FiO2 05/17/17 08:00 94 Vapotherm 10.00 50 05/17/17 08:00 74 29 103/52 (69) 05/17/17 04:00 96.7 Capillary Refill : Less Than 3 Seconds I&O Intake and Output 05/17/17 00:00 Intake Total 2750 ml Output Total 5075 ml Balance -2325 ml Intake Oral 1400 ml IV Total 1350 ml Output Urine Total 5075 ml General: Alert, Oriented X3, Cooperative, No Acute Distress HEENT: Atraumatic, EOMI, Mucous Memb Moist/[place] Neck: Supple, No Thyromegaly Lungs: Clear to Auscultation, Normal Air Movement Heart: Regular Rate, Normal S1, Normal S2, No Murmurs Abdomen: Normal Bowel Sounds, Soft, No Tenderness, No Masses Extremities: No Cyanosis, Other (pain in right groin with palpation in area over cath site) Skin: No Rashes, Other (pallor) Neuro: Normal Speech, Cranial Nerves 3-12 NL Psych/Mental Status: Mental Status NL, Mood NL Results/Procedures Lab Laboratory Tests 05/16/17 11:08: Glucometer 138H, Troponin I < 0.30 05/16/17 16:40: Glucometer 214H 05/16/17 20:25: Glucometer 237H 05/17/17 04:00: White Blood Count 5.4, Red Blood Count 2.58L, Hemoglobin 8.0L, Hematocrit 26L, Mean Corpuscular Volume 99, Mean Corpuscular Hemoglobin 31, Mean Corpuscular Hemoglobin Concent 31L, Red Cell Distribution Width 14.8H, Platelet Count 131, Mean Platelet Volume 10.1, Neutrophils (%) (Auto) 85H, Lymphocytes (%) (Auto) 13 , Monocytes (%) (Auto) 3, Eosinophils (%) (Auto) 0, Basophils (%) (Auto) 0, Neutrophils # (Auto) 4.5, Lymphocytes # (Auto) 0.7L, Monocytes # (Auto) 0.2, Eosinophils # (Auto) 0.0, Basophils # (Auto) 0.0, Sodium Level 139, Potassium Level 3.8, Chloride Level 107, Carbon Dioxide Level 23, Anion Gap 9, Blood Urea Nitrogen 7, Creatinine 0.36L, Estimat Glomerular Filtration Rate > 60, BUN/ Creatinine Ratio 19, Glucose Level 136H, Calcium Level 8.4L, Phosphorus Level 1.9L, Magnesium Level 2.0 Microbiology 05/12/17 Blood Culture - Preliminary, Resulted No growth 05/12/17 Urine Culture - Final, Complete Escherichia coli Pseudomonas Aeruginosa Radiology CXR negative Procedures Right IJ placement due to difficult vascular access and need for pressors Assessment/Plan Assessment/Plan Admission Dx Acute Respiratory Distress (1) Acute systolic CHF (congestive heart failure) Status: Acute Assessment & Plan: Non-ischemic, started beta millie and sacubitril/valsartan but blood pressure too low to tolerate, started dopamine drip, weaning currently 2/2 off dopamine drip, restart low dose metoprolol per Dr. Eli 2 BP remains stable but soft, off dopamine for >24 hours; cardiology continues to follow and actively manage 05/17 -BP improved off dopamine -EF 20% on admission -patient being closely followed and managed by cardiology (2) Acute respiratory failure with hypoxia Status: Acute Assessment & Plan: Mucus plugging versus pneumonia, Zosyn started in ER, Dr. Ludwig consulted for Pulm/Critical care Much improved this am, now on 2 lpm nasal cannula. V/Q scan this morning due to contrast dye allergy. 05/14 V/Q scan low probability of PE, stable respiratory status, wean supplemental oxygen as tolerated, continue zosyn 2/ has weak cough in general, worse currently and with increased mucous and difficulty clearing, continue flonase, use acapella, consider mucomyst and chest physiotherapy if needed 05/16 -currently on FiO2 50% Vapotherm -Mucomyst and IV Solumedrol started by Dr. Ludwig this morning -BNP 210 this AM -if unable to wean down FiO2 at all, consider chest physiotherapy -will continue to defer pulmonary management to Dr. Ludwig 05/17 -patient has made little to no progress from a respiratory standpoint, and is still on FiO2 50% Vapotherm at 10L -pt feels cough is more productive after Mucomyst was started yesterday -pt's hemoglobin has trended down, 14.6 on admission and 8.0 now; have significant concern that patient is not progressing with weaning from supplemental oxygen due to the significant decrease in her hemoglobin, the cause of which is unknown at this point; type and screen with labs in AM for possible transfusion if Hgb continues to trend down. Given that patient has reported pain at her cath site, concern that hematoma could be potential cause of Hgb drop and subsequent difficulty in weaning oxygen. Will discuss with cardiology. -Day 5 Zosyn (3) Elevated troponin Status: Resolved Assessment & Plan: Cardiology consult, recommended cath, patient wanting to wait until respiratory status improved, monitoring troponin, on aspirin and therapeutic enoxaparin 05/14- underwent cardiac cath and found to have nonischemic cardiomyopathy, troponin trending down 2/3 -patient reported chest pain this AM -stat troponin ordered, negative -cardiology notified of patient complaints (4) Urinary tract infection Status: Acute Assessment & Plan: Unclear if infection versus colonization with indwelling catheter, will follow up culture results, continue zosyn 2/2 E coli and pseudomonas both sensitive to zosyn 2/3 -Day 4 Zosyn, continue antibiotics 2/4 -Day 5 Zosyn -WBC 6.4 --> 8.5 --> 5.4 Qualifiers: (5) Harvyrj-Ndcij-Jqzjf disease Status: Chronic (6) Pressure ulcer of right ischium Status: Chronic Assessment & Plan: Air mattress, dressing changes per home routine (7) Chronic pain Status: Chronic Assessment & Plan: Resume home meds Qualifiers: Qualified Codes: G89.4 - Chronic pain syndrome (8) Chronic indwelling Mark catheter Status: Chronic (9) DVT prophylaxis Status: Acute Assessment & Plan: Enoxaparin (10) Anemia Status: Acute Assessment & Plan: 05/17 -Hgb 14 --> 11.8 --> 10.3 --> 9.4 --> 8.0 -patient very pale, increased pallor compared to yesterday -high suspicion that patient is having difficulty weaning down on her oxygen requirements because of her significant drop in hgb -no obvious source of bleeding, but patient had a cardiac cath and pain in right groin at her cath site, known hematoma and with drop in hemoglobin concern that it could be continuing to expand, although patient does report pain has improved today -will type and screen patient tomorrow with AM labs in case of further drop in hemoglobin and discuss concerns with cardiology for their opinion. -at this point patient's only symptom is fatigue, however her inability to wean down on her oxygen requirement and supplemental oxygen is likely masking any shortness of breath the patient might otherwise be having Clinical Quality Measures DVT/VTE Risk/Contraindication: Risk Factor Score Per Nursin RFS Level Per Nursing on Admit: 3=High MARISA BLANDON DO May 17, 2017 09:25
--- NOTE | 2017-05-17 10:22 | Diagnostic Imaging Report ---
CHEST 1 VIEW, AP/PA ONLY INDICATION: Cough, pneumonia. COMPARISON: 05/16/2017. FINDINGS: Support Devices: Stable right IJ central venous catheter. Chest: Left basilar scattered linear opacities are unchanged. Remainder of the lungs are clear by portable radiography. No pleural effusion or pneumothorax. Stable cardiomediastinal silhouette. Posterior instrumented spinal stabilization rods are unchanged. IMPRESSION: 1. Stable support devices. 2. No change in left basilar linear opacities favoring atelectasis. No adverse development. Dictated on workstation # [id number]
[2017-05-17] MEDS: meTOprolol TARTRATE 25 MG (LOPRESSOR) TABLET PO SCH (11:08)
--- NOTE | 2017-05-17 13:06 | Cardiology Progress Note ---
Cardiology SOAP Progress Note Subjective: No cardiac complaints. Objective: I&O/Vital Signs Vital Sign - Last 12Hours 05/17/17 05/17/17 05/17/17 05/17/17 02:00 03:00 03:36 04:00 Pulse 81 81 Resp 21 23 B/P (MAP) 99/51 (67) 99/56 (70) Pulse Ox 97 97 98 95 O2 Delivery Vapotherm Vapotherm Vapotherm Vapotherm O2 Flow Rate 50.00 50.00 10.00 10.00 10.00 10.00 FiO2 50 50 05/17/17 05/17/17 05/17/17 05/17/17 04:00 05:00 06:00 07:00 Temp 96.7 Pulse 77 76 69 73 Resp 26 9 25 B/P (MAP) 102/61 (75) 112/55 (74) 100/56 (71) Pulse Ox 96 97 98 O2 Delivery Vapotherm Vapotherm Vapotherm O2 Flow Rate 50.00 50.00 50.00 10.00 10.00 10.00 05/17/17 05/17/17 05/17/17 05/17/17 07:00 07:34 08:00 08:00 Pulse 73 74 Resp 18 29 B/P (MAP) 117/63 (81) 103/52 (69) Pulse Ox 99 98 97 94 O2 Delivery Vapotherm Vapotherm Vapotherm Vapotherm O2 Flow Rate 50.00 10.00 50.00 10.00 10.00 10.00 FiO2 50 50 05/17/17 05/17/17 05/17/17 09:00 11:19 12:00 Pulse 73 Resp 24 B/P (MAP) 103/51 (68) Pulse Ox 97 97 94 O2 Delivery Vapotherm Vapotherm Vapotherm O2 Flow Rate 50.00 10.00 10.00 10.00 FiO2 50 50 Intake and Output 05/17/17 00:00 Intake Total 1300 ml Output Total 1725 ml Balance -425 ml Weight (Pounds): 138 Weight (Ounces): 10.0 Weight (Calculated Kilograms): [id number] Constitutional: AAO x 3, well-developed Respiratory: lungs clear to percussion, lungs clear to auscultation Cardiovascular: regular rate-rhythm, No irregularly irregular, No extra beats, No parasternal heave is noted, No JVD, No edema, No bradycardia, No tachycardia , No point of maximal impulse, No cardiac thrills are palpable, S1 and S2, No gallop/S3, No gallop/S4, No diastolic murmur, No systolic murmur, No friction rub, No click, No other Gastrointestional: No tender, No soft, No round, No distended, No pulsatile mass, No organomegaly, No guarding, No rebound, No tenderness, No hernia, No mass, No audible bowel sounds, No abnormal bowel sounds, No abdominal bruits, No spleenomegaly, No other Genital/Rectal: other (INDWELLING LANDRUM WITH LEG BAG) Extremities: No normal range of motion, No non-tender, No normal inspection, No pedal edema, No calf tenderness, No normal capillary refill, No pelvis stable , No calf tenderness, No inflammation, No pedal edema, No slow capillary refill , No swelling, No other, No abrasion, No clubbing, No cyanosis, No ecchymosis, No laceration, No no lower extremity edema bilateral, No significant edema, No tenderness, No wound Neurologic/Psychiatric: No drafter marine II-XII nml as tested, No no motor/sensory deficits, No alert, No normal mood/affect, No oriented x 3, No abnormal cerebellar tests, No abnormal drafter marine II-XII, No abnormal gait, No aphasia, No EOM palsy, No facial droop, No motor weakness, No sensory deficit, No depressed affect, No disoriented x 3, No other, No grossly intact, No power is 5/5 both on sides Skin: No normal color, No warm/dry, No cyanosis, No cool, No diaphoresis, No damp, No ecchymosis, No jaundice, No mottled, No pallor, No rash, No tattoos/ piercings, No ulcerations, No rash on exposed areas, No ulcerations on exposed areas, No other Results/Procedures: Labs Laboratory Tests 05/16/17 16:40: Glucometer 214H 05/16/17 20:25: Glucometer 237H 05/17/17 04:00: White Blood Count 5.4, Red Blood Count 2.58L, Hemoglobin 8.0L, Hematocrit 26L, Mean Corpuscular Volume 99, Mean Corpuscular Hemoglobin 31, Mean Corpuscular Hemoglobin Concent 31L, Red Cell Distribution Width 14.8H, Platelet Count 131, Mean Platelet Volume 10.1, Neutrophils (%) (Auto) 85H, Lymphocytes (%) (Auto) 13 , Monocytes (%) (Auto) 3, Eosinophils (%) (Auto) 0, Basophils (%) (Auto) 0, Neutrophils # (Auto) 4.5, Lymphocytes # (Auto) 0.7L, Monocytes # (Auto) 0.2, Eosinophils # (Auto) 0.0, Basophils # (Auto) 0.0, Sodium Level 139, Potassium Level 3.8, Chloride Level 107, Carbon Dioxide Level 23, Anion Gap 9, Blood Urea Nitrogen 7, Creatinine 0.36L, Estimat Glomerular Filtration Rate > 60, BUN/ Creatinine Ratio 19, Glucose Level 136H, Calcium Level 8.4L, Phosphorus Level 1.9L, Magnesium Level 2.0 05/17/17 11:05: Glucometer 99 Microbiology 05/12/17 Blood Culture - Preliminary, Resulted No growth 05/12/17 Urine Culture - Final, Complete Escherichia coli Pseudomonas Aeruginosa A/P: Assessment/Dx: Acute respiratory failure Non-ST elevation myocardial infarction Coronary artery disease Tachycardia Diabetes mellitus Plan: Acute respiratory failure, improved. Managed by Dr. Ludwig. Significant decrease in hemoglobin. She did complain of pain in the right groin after coronary angiography. We'll request ultrasound of the right groin to rule out hematoma. If nondiagnostic then will require CT abdomen and pelvis. Acute chest pain with EKG changes and elevated troponin, patient has Q waves in the anterior leads, has dynamic T-wave, normal coronaries, no significant obstructive disease. No myocardial infarction 1. Severe nonischemic cardiomyopathy with ejection fraction 20 percent, segmental wall motion involving the apex, anteroapical and mid anterior wall and inferoapical segments. 2. Mild to moderate coronary artery disease nonobstructive disease Congestive heart failure, acute left ventricular systolic dysfunction, EF 20 percent. Questionable Takotsubo cardiomyopathy, was started on beta millie, Entresto, however she became hypotensive, patient will be unable to tolerate beta blockers, MALINDA inhibitor and/or ARB due to hypotension and borderline bradycardia. blood pressure is better today, gradually taper off dopamine. Shortness of breath, cough, bilateral rhonchi, wet rales at the bases. Hypotensive shock, received IV fluid, currently normotensive. Monitor response to beta blockers and Lasix. Tachycardia, secondary to hypoxemia, became borderline bradycardic after beta blockers, I am restarting beta blockers again and evaluate tolerance and response Tobaccoism by history. Sdlgcyc-Kizvi-Lnnfm disease, paraplegia History of indwelling urinary catheter with recurrent UTI, recurrent kidney stone with history of kidney stone basket in 2008 and lithotripsy Diabetes mellitus, followed and managed by primary care physician History of decubitus ulcer secondary to immobility with history of MRSA wound Depression Wheelchair bound History of cholecystectomy, genital wound debridement, muscle biopsy, right and left ankle closed reduction, right humerus, right femur, left femur, right tibia surgeries Thank you for your consultation. Please call me if you have any questions. Morgan Mcgowan MD, FACP, FACC, FSCAI, FHRS, CCDS Interventional Cardiology Cardiac Electrophysiology Vascular Medicine and Endovascular Interventions Margaret MCGOWAN MD May 17, 2017 1:06 pm
[2017-05-17] MEDS: ALPRAZolam 0.5 MG (XANAX) TAB PO PRN ×2 (13:12→22:04)
[2017-05-17] MEDS: oxyCODONE/APAP 10/325MG (PERCOCET 10) TABLET PO PRN ×2 (13:12→21:03)
--- NOTE | 2017-05-17 14:36 | Diagnostic Imaging Report ---
INDICATION: Post catheter. FINDINGS: Ventral to the common femoral artery and vein is a complex collection. Given the history, presumed to be a hematoma measuring 8.3 x 5.0 x 8.3 cm. It showed no blood flow. There was no evidence for a patent pseudoaneurysm. The common femoral artery and vein are patent with normal directional flow. IMPRESSION: Hematoma ventral to the patent artery and vein. No findings of active bleeding or patent pseudoaneurysm. Dictated by: Dictated on workstation # [id number]
[2017-05-17] MEDS: LACTOBACILLUS Acidoph/Bulgar (LACTINEX/FLORANEX) TAB PO SCH (21:02)
[2017-05-17] MEDS: ENOXAPARIN 40 MG/0.4 ML (LOVENOX) SYR SC SCH (21:02)
[2017-05-17] MEDS: MONTELUKAST 10 MG (SINGULAIR) TAB PO SCH (21:02)
[2017-05-18] VITALS (22 sets, daily range): BP systolic 110–188; BP diastolic 59–117
[2017-05-18] MEDS: DOPamine DRIP 400 MG/250 ML D5W (PRE-MIX) IV SCH (00:41)
[2017-05-18] MEDS: RT-ALBUTEROL/IPRATROPIUM 3 ML (DUONEB) VIAL INH SCH ×7 (02:40→22:04)
[2017-05-18] MEDS: aCETylcysteine 20% (MUCOMYST) 30ML SOLN VIAL INH SCH ×7 (02:40→22:04)
[2017-05-18 04:38] LABS: BASOPHILS % (AUTO) 0 % (0-10); EOSINOPHILS % (AUTO) 0 % (0-10); HEMATOCRIT 22 % (35-52); HEMOGLOBIN 7.1 G/DL (11.5-16.0); LYMPHOCYTES % (AUTO) 19 % (12-44); MEAN CORPUSCULAR HEMOGLOBIN 32 PG (25-34); MEAN CORPUSCULAR HGB CONC 32 G/DL (32-36); MEAN CORPUSCULAR VOLUME 100 FL (80-99); MONOCYTES # (AUTO) 0.2 X 10^3 (0.0-1.0); MONOCYTES % (AUTO) 4 % (0-12); NEUTROPHILS # (AUTO) 3.8 X 10^3 (1.8-7.8); NEUTROPHILS % (AUTO) 76 % (42-75); PLATELET COUNT 154 10^3/uL (130-400); RED BLOOD COUNT 2.22 10^6/uL (4.35-5.85); WHITE BLOOD COUNT 4.9 10^3/uL (4.3-11.0)
[2017-05-18] MEDS: PIPERACILLIN SODIUM/TAZOBACTAM 4.5 GM in D5W 100 ML IVPB 100 ML IV SCH ×3 (04:41→22:30)
[2017-05-18 05:21] LABS: BUN/CREATININE RATIO 29; CALCIUM 8.1 MG/DL (8.5-10.1); CARBON DIOXIDE 22 MMOL/L (21-32); CHLORIDE 109 MMOL/L (98-107); CREATININE SERUM 0.35 MG/DL (0.60-1.30); GFR ESTIMATED > 60; GLUCOSE 123 MG/DL (70-105); MAGNESIUM 1.9 MG/DL (1.8-2.4); PHOSPHORUS 2.2 MG/DL (2.3-4.7); POTASSIUM 3.7 MMOL/L (3.6-5.0); SODIUM 142 MMOL/L (135-145)
[2017-05-18] MEDS: MAGNESIUM 1 GM/100 ML IVPB 100 ML IV SCH (05:25)
[2017-05-18] MEDS: POTASSIUM CL 10MEQ/50ML IVPB 50 ML IV SCH (05:25)
[2017-05-18] MEDS: inSUlin (REGULAR) HUMAN 1 UNIT/0.01 ML (CHARGE PER UNIT) SC SCH ×4 (05:26→22:57)
[2017-05-18] MEDS: KCL 20 MEQ TAB (K-DUR) PO SCH (05:26)
[2017-05-18] MEDS: NS IV 1000 ML 1,000 ML IV SCH ×3 (06:19→21:15)
--- NOTE | 2017-05-18 08:13 | Pulmonary Progress Note ---
Subjective Time Seen by Provider: 06:39 Subjective/Events-last exam pt is doing much better. Exam Exam Vital Signs Date Time Temp Pulse Resp B/P (MAP) Pulse Ox O2 Delivery O2 Flow Rate FiO2 05/18/17 07:00 66 05/18/17 07:00 66 20 119/67 (84) 96 High Flow N/C 1.00 05/18/17 06:49 97 Nasal Cannula 1.00 05/18/17 06:00 57 21 112/68 (83) 97 High Flow N/C 1.00 05/18/17 05:00 67 17 127/75 (92) 95 High Flow N/C 1.00 05/18/17 04:50 71 18 93 High Flow N/C 1.00 05/18/17 04:00 97.8 05/18/17 04:00 58 20 110/65 (80) 98 High Flow N/C 2.00 05/18/17 04:00 98 High Flow N/C 2.00 05/18/17 03:00 67 16 119/63 (81) 98 High Flow N/C 2.00 05/18/17 02:41 98 Nasal Cannula 3.00 05/18/17 02:00 61 19 117/62 (80) 98 High Flow N/C 3.00 05/18/17 01:22 60 17 98 High Flow N/C 3.00 05/18/17 01:00 61 05/18/17 01:00 61 19 110/66 (81) 98 High Flow N/C 4.00 05/18/17 00:26 91 21 97 45.00 05/18/17 00:00 96 High Flow N/C 4.00 05/18/17 00:00 67 25 115/77 (90) 97 High Flow N/C 4.00 05/17/17 23:00 70 26 114/55 (74) 98 High Flow N/C 4.00 05/17/17 22:00 96 20 136/68 (90) 97 High Flow N/C 4.00 05/17/17 21:00 89 30 140/62 (88) 97 High Flow N/C 4.00 05/17/17 20:00 97 High Flow N/C 4.00 05/17/17 20:00 101 28 122/54 (76) 97 High Flow N/C 4.00 05/17/17 19:30 98.5 05/17/17 19:05 90 26 99 High Flow N/C 4.00 05/17/17 19:00 91 05/17/17 19:00 89 26 143/59 (87) 99 Vapotherm 50.00 10.00 05/17/17 18:00 87 18 121/70 (87) 100 Vapotherm 50.00 10.00 05/17/17 17:00 83 20 106/61 (76) 98 Vapotherm 50.00 10.00 05/17/17 16:00 101 26 135/74 (94) 97 Vapotherm 50.00 10.00 05/17/17 15:09 94 Nasal Cannula 5.00 05/17/17 15:00 100 27 129/74 (92) 98 Vapotherm 50.00 10.00 05/17/17 14:53 94 Vapotherm 5.00 50 05/17/17 14:00 104 25 121/65 (83) 91 Vapotherm 50.00 10.00 05/17/17 13:00 104 26 133/68 (89) 92 Vapotherm 50.00 10.00 05/17/17 13:00 104 05/17/17 12:00 94 Vapotherm 10.00 50 05/17/17 12:00 86 28 138/63 (88) 92 Vapotherm 50.00 10.00 05/17/17 11:19 97 Vapotherm 10.00 50 05/17/17 11:00 82 25 116/61 (79) 97 Vapotherm 50.00 10.00 05/17/17 10:00 74 19 116/61 (79) 100 Vapotherm 50.00 10.00 05/17/17 09:00 73 24 103/51 (68) 97 Vapotherm 50.00 10.00 I & O 05/18/17 07:00 Intake Total 1225 ml Output Total 2200 ml Balance -975 ml General Appearance: No Apparent Distress, WD/WN, Moderate Distress HEENT: PERRL/EOMI, TMs Normal, Normal ENT Inspection, Pharynx Normal Neck: Full Range of Motion, Normal Inspection, Non Tender Respiratory: Chest Non Tender, Crackles, Decreased Breath Sounds, Respiratory Distress Cardiovascular: No Edema, Normal Peripheral Pulses, Systolic Murmur, Gallop/S3 , Tachycardia Capillary Refill: Less Than 3 Seconds Gastrointestinal: normal bowel sounds, non tender, soft Extremity: Normal Capillary Refill Neurologic/Psychiatric: Alert, No Motor/Sensory Deficits, Normal Mood/Affect Skin: Normal Color, Warm/Dry Lymphatic: No Adenopathy Results Lab Laboratory Tests 05/17/17 04:00 05/18/17 04:30 Assessment/Plan Assessment/Plan Acute respiratory failure probably secondary to bronchospasam or mucous plugging -- much improved -CXR is clear and no leukocytosis or fever -Doubt pneumonia -- -V/Q and dopplers are negative -Start SOlumedrol 40 IV Q 12 -Mucinex, Mucomyst NSTEMI -cardiology following -Will order troponins x 3 Hypotension -Pt is off Dopamine -Continue to monitor Cardiomyopathy with EF of 20% Acute UTI with hx of Klebsiella and pseudomonas - Zosyn only for now and await cultures DM II Chronic indwelling mark Paraplegia and wheel chair bound Once pt is transferred to 4th floor I am going to sign off. Please call with any questions. 233 Clinical Quality Measures DVT/VTE Risk/Contraindication: Risk Factor Score Per Nursin RFS Level Per Nursing on Admit: 3=High ELMER GODOY DO May 18, 2017 08:13
[2017-05-18] MEDS: PANTOPRAZOLE 40 MG (PROTONIX) TAB PO SCH (08:14)
--- NOTE | 2017-05-18 08:17 | Diagnostic Imaging Report ---
Indication: Lower respiratory failure. IJ Port-A-Cath tip projects over the SVC. The heart size and pulmonary vascularity are normal. Lungs are clear. There are no effusions or pneumothoraces. IMPRESSION: Negative chest. Dictated by: Dictated on workstation # [id number]
[2017-05-18] MEDS: oxyCODONE/APAP 10/325MG (PERCOCET 10) TABLET PO PRN ×2 (08:21→18:29)
[2017-05-18] MEDS: ALPRAZolam 0.5 MG (XANAX) TAB PO PRN ×2 (08:21→20:01)
[2017-05-18] MEDS: LORATADINE (CLARITIN) 10 MG TAB PO SCH (09:46)
[2017-05-18] MEDS: methylPREDNISolone 40 MG/ML (Solu-MEDROL) VIAL IV SCH ×2 (09:46→22:29)
[2017-05-18] MEDS: ASPIRIN E.C. 81 MG (ECOTRIN) TAB PO SCH (09:46)
[2017-05-18] MEDS: FLUTICASONE NASAL SPRAY (FLONASE) 16 GM BTL NS SCH (09:47)
--- NOTE | 2017-05-18 10:37 | Cardiology Progress Note ---
Subjective Date Seen by Provider: May 18, 2017 Time Seen by Provider: 10:35 Subjective/Events-last exam patient is laying down in bed, feeling better. Denied any chest pain. Breathing better. Groin is feeling better. Review of Systems General: No Chills, No Night Sweats, No Fatigue, No Malaise, No Appetite, No Other HEENT: No Head Aches, No Visual Changes, No Eye Pain, No Ear Pain, No Dysphasia , No Sinus Congestion, No Post Nasal Drip, No Sore Throat, No Other Pulmonary: No Dyspnea, No Cough, No Pleuritic Chest Pain, No Other Cardiovascular: No: Chest Pain, Palpitations, Orthopnea, Paroxysmal Noc. Dyspnea, Edema, Lt Headedness, Other Objective-Cardiology Exam Last Set of Vital Signs Vital Signs 05/17/17 14:53 FiO2 50 Capillary Refill : Less Than 3 Seconds I&O Intake and Output 05/18/17 00:00 Intake Total 1075 ml Output Total 2000 ml Balance -925 ml Intake Oral 1075 ml Output Urine Total 2000 ml General: Alert, Oriented X3, Cooperative, No Acute Distress HEENT: Atraumatic, EOMI, Mucous Memb Moist/[place] Neck: Supple, No Thyromegaly Lungs: Clear to Auscultation, Normal Air Movement Heart: Regular Rate, Normal S1, Normal S2, No Murmurs Abdomen: Normal Bowel Sounds, Soft, No Tenderness, No Masses Extremities: No Cyanosis, Other (pain in right groin with palpation in area over cath site) Skin: No Rashes, Other (pallor) Neuro: Normal Speech, Cranial Nerves 3-12 NL Psych/Mental Status: Mental Status NL, Mood NL Results Lab Laboratory Tests 05/18/17 04:30 A/P-Cardiology Admission Diagnosis Acute respiratory failure Non-ST elevation myocardial infarction Coronary artery disease Tachycardia Diabetes mellitus Assessment/Plan Status post acute respiratory failure, improved. Managed by Dr. Ludwig, no signs of pneumonia at this time. Acute chest pain with EKG changes and elevated troponin, patient has Q waves in the anterior leads, has dynamic T-wave, normal coronaries, no significant obstructive disease. No myocardial infarction 1. Severe nonischemic cardiomyopathy with ejection fraction 20 percent, segmental wall motion involving the apex, anteroapical and mid anterior wall and inferoapical segments. 2. Mild to moderate coronary artery disease nonobstructive disease Congestive heart failure, acute left ventricular systolic dysfunction, EF 20 percent. Questionable Takotsubo cardiomyopathy, repeat echocardiogram today showed left ventricular function and return to normal, her severe cardiomyopathy is probably due to severe hypoxemia and stress. Currently normal LV function. She was unable to tolerate beta blockers and/or MALINDA inhibitor and/or ARB due to severe hypotension. I am restarting low-dose beta blockers and evaluate her tolerance and response Shortness of breath, cough, bilateral rhonchi, wet rales at the bases, better at this time. Tachycardia, secondary to hypoxemia, became borderline bradycardic after beta blockers, continue to monitor Tobaccoism by history. Qyamnup-Iazzo-Fyyfs disease, paraplegia History of indwelling urinary catheter with recurrent UTI, recurrent kidney stone with history of kidney stone basket in 2008 and lithotripsy Diabetes mellitus, followed and managed by primary care physician History of decubitus ulcer secondary to immobility with history of MRSA wound Depression Wheelchair bound History of cholecystectomy, genital wound debridement, muscle biopsy, right and left ankle closed reduction, right humerus, right femur, left femur, right tibia surgeries Clinical Quality Measures DVT/VTE Risk/Contraindication: Risk Factor Score Per Nursin RFS Level Per Nursing on Admit: 3=High ISABEL RUBIO MD May 18, 2017 10:37
[2017-05-18] MEDS: METHYLNALTREXONE 12 MG/0.6 ML (RELISTOR) VIAL SQ SCH (17:32)
[2017-05-18] MEDS: MONTELUKAST 10 MG (SINGULAIR) TAB PO SCH (22:29)
[2017-05-18] MEDS: ENOXAPARIN 40 MG/0.4 ML (LOVENOX) SYR SC SCH (22:29)
[2017-05-18] MEDS: LACTOBACILLUS Acidoph/Bulgar (LACTINEX/FLORANEX) TAB PO SCH (22:56)
[2017-05-19] VITALS: BP 106/51
[2017-05-19] MEDS: aCETylcysteine 20% (MUCOMYST) 30ML SOLN VIAL INH SCH ×5 (02:09→23:22)
[2017-05-19] MEDS: RT-ALBUTEROL/IPRATROPIUM 3 ML (DUONEB) VIAL INH SCH ×6 (02:09→23:56)
[2017-05-19 04:38] VITALS: BP 109/55
[2017-05-19] MEDS: PIPERACILLIN SODIUM/TAZOBACTAM 4.5 GM in D5W 100 ML IVPB 100 ML IV SCH ×3 (06:18→20:39)
[2017-05-19] MEDS: PANTOPRAZOLE 40 MG (PROTONIX) TAB PO SCH (06:23)
[2017-05-19 06:27] LABS: BASOPHILS % (AUTO) 0 % (0-10); EOSINOPHILS % (AUTO) 0 % (0-10); HEMATOCRIT 27 % (35-52); HEMOGLOBIN 8.8 G/DL (11.5-16.0); LYMPHOCYTES # (AUTO) 1.4 X 10^3 (1.0-4.0); LYMPHOCYTES % (AUTO) 24 % (12-44); MEAN CORPUSCULAR HEMOGLOBIN 31 PG (25-34); MEAN CORPUSCULAR HGB CONC 32 G/DL (32-36); MEAN CORPUSCULAR VOLUME 96 FL (80-99); MONOCYTES # (AUTO) 0.4 X 10^3 (0.0-1.0); MONOCYTES % (AUTO) 7 % (0-12); NEUTROPHILS # (AUTO) 3.9 X 10^3 (1.8-7.8); NEUTROPHILS % (AUTO) 68 % (42-75); PLATELET COUNT 180 10^3/uL (130-400); RED BLOOD COUNT 2.85 10^6/uL (4.35-5.85); RED CELL DISTRIBUTION WIDTH 17.5 % (10.0-14.5); WHITE BLOOD COUNT 5.7 10^3/uL (4.3-11.0)
[2017-05-19] MEDS: inSUlin (REGULAR) HUMAN 1 UNIT/0.01 ML (CHARGE PER UNIT) SC SCH ×4 (06:41→22:20)
[2017-05-19 07:09] LABS: BUN/CREATININE RATIO 37; CALCIUM 8.1 MG/DL (8.5-10.1); CARBON DIOXIDE 23 MMOL/L (21-32); CHLORIDE 111 MMOL/L (98-107); CREATININE SERUM 0.38 MG/DL (0.60-1.30); GFR ESTIMATED > 60; GLUCOSE 149 MG/DL (70-105); POTASSIUM 3.8 MMOL/L (3.6-5.0); SODIUM 141 MMOL/L (135-145)
[2017-05-19 08:00] VITALS: BP 122/70
[2017-05-19] MEDS: LORATADINE (CLARITIN) 10 MG TAB PO SCH (08:23)
[2017-05-19] MEDS: ASPIRIN E.C. 81 MG (ECOTRIN) TAB PO SCH (08:23)
[2017-05-19] MEDS: FLUTICASONE NASAL SPRAY (FLONASE) 16 GM BTL NS SCH (08:24)
[2017-05-19] MEDS: METHYLNALTREXONE 12 MG/0.6 ML (RELISTOR) VIAL SQ SCH (08:25)
[2017-05-19] MEDS: methylPREDNISolone 40 MG/ML (Solu-MEDROL) VIAL IV SCH (08:25)
--- NOTE | 2017-05-19 09:39 | Physical Therapy Evaluation ---
PT Evaluation-General Medical Diagnosis Admission Date May 12, 2017 at 20:00 Medical Diagnosis: acute respiratory distress Onset Date: May 12, 2017 Therapy Diagnosis Therapy Diagnosis: debility/weakness/ROM Height/Weight Height (Feet): 5 Height (Inches): 0.00 Weight (Pounds): 153 Weight (Ounces): 6.0 Precautions Precautions/Isolations: Fall Prevention, Standard Precautions, Pressure Ulcer Weight Bear Status patient is paraplegic Referral Physician: Radha Choe Reason for Referral: Evaluation/Treatment Medical History Pertinent Medical History: Arthritis, DM Additional Medical History Aftnwuk-Tlvvf-Amoyr Current History POV to ED in respiratory distress/multiple hospital admits this year. Reviewed History: Yes Social History Home: Single Level Entry Into Home: Level Entry caregivers perform all ADL's, transfers, bed mobility, etc. Patient is dependent assist with all and has been for years. Prior/Core FIM Prior Level of Function Functional [place] Measure 0=Not Assessed/NA 4=Minimal Assistance 1=Total Assistance 5=Supervision or Setup 2=Maximal Assistance 6=Modified [place] 3=Moderate Assistance 7=Complete [place] Bed Mobility: 1 Transfers (B,C,W/C) (FIM): 1 has power chair for mobility PT Evaluation-Current Subjective Patient agrees to PT. ROM only on this date. Pain Numeric Pain Scale: 0-No Pain Location: No Pain Reported Objective Patient Orientation: Normal For Age Problem Solving: Good Attachments: Oxygen, Chowdhury Catheter, IV ROM/Strength ROM Lower Extremities limited ROM due to arthritic and Loyygef-Jvbut-Obkct disease process Strength Lower Extremities flaccid Integumentary/Posture Integumentary refer to nursing notes Bladder Incontinence: Chowdhury Cath Neuromuscular (Tone, Coordination, Reflexes) severely diminished with all due to disease process Sensory Vision: Wears Glasses Hearing: Functional Transfers Functional [place] Measure 0=Not Assessed/NA 4=Minimal Assistance 1=Total Assistance 5=Supervision or Setup 2=Maximal Assistance 6=Modified [place] 3=Moderate Assistance 7=Complete [place] Transfers (B, C, W/C) (FIM): 1 Scootin Rollin patient declined OOB due to her power chair is not here Gait Mode of Locomotion: Wheelchair Anticipated Mode of Locomotion: Wheelchair Assessment/Needs 56 y.o. female, with progressive disease process, is currently and has been for years, dependent with all bed mobility and transfers. Patient will receive ROM bilateral LE's to address circulation and caregivers will perform transfers due to patient's request. Rehab Potential: Guarded PT Adjuster Piano Action Goals Adjuster Piano Action Goals PT Retirement Goals Time Frame: May 29, 2017 Transfers (B,C,W/C) (FIM): 1 PT Plan Problem List Problem List: Activity Tolerance, Functional Strength, Transfer, Bed Mobility Treatment/Plan Treatment Plan: Continue Plan of Care Treatment Plan: Bed Mobility, Education, Functional Activity Jen, Functional Strength, Therapeutic Exercise, Transfers Treatment Duration: May 29, 2017 Frequency: 5 times per week Estimated Hrs Per Day: .25 hour per day Patient and/or Family Agrees t: Yes Time/GCodes Time In: 810 Time Out: 835 Total Billed Treatment Time: 25 Total Billed Treatment 1 visit [facility] 25 min SHELLY POLANCO PT May 19, 2017 09:39
[2017-05-19] MEDS: oxyCODONE/APAP 10/325MG (PERCOCET 10) TABLET PO PRN ×2 (10:41→17:35)
[2017-05-19] MEDS: ALPRAZolam 0.5 MG (XANAX) TAB PO PRN ×2 (10:41→20:39)
--- NOTE | 2017-05-19 10:45 | Cardiology Progress Note ---
Subjective Date Seen by Provider: May 19, 2017 Time Seen by Provider: 10:43 Subjective/Events-last exam Patient is laying down in bed, denied any chest pain, feeling better, breathing better. Review of Systems General: No Chills, No Night Sweats, No Fatigue, No Malaise, No Appetite, No Other HEENT: No Head Aches, No Visual Changes, No Eye Pain, No Ear Pain, No Dysphasia , No Sinus Congestion, No Post Nasal Drip, No Sore Throat, No Other Pulmonary: No Dyspnea, No Cough, No Pleuritic Chest Pain, No Other Cardiovascular: No: Chest Pain, Palpitations, Orthopnea, Paroxysmal Noc. Dyspnea, Edema, Lt Headedness, Other Objective-Cardiology Exam Last Set of Vital Signs Vital Signs 05/17/17 05/19/17 14:53 04:38 O2 Flow Rate 1.00 FiO2 50 Capillary Refill : Less Than 3 Seconds I&O Intake and Output 05/19/17 00:00 Intake Total 3460 ml Output Total 2250 ml Balance 1210 ml Intake Oral 1460 ml IV Total 2000 ml Output Urine Total 2250 ml # Bowel Movements 1 General: Alert, Oriented X3, Cooperative, No Acute Distress HEENT: Atraumatic, EOMI, Mucous Memb Moist/[place] Neck: Supple, No Thyromegaly Lungs: Clear to Auscultation, Normal Air Movement Heart: Regular Rate, Normal S1, Normal S2, No Murmurs Abdomen: Normal Bowel Sounds, Soft, No Tenderness, No Masses Extremities: No Cyanosis, Other (pain in right groin with palpation in area over cath site) Skin: No Rashes, Other (pallor) Neuro: Normal Speech Psych/Mental Status: Mental Status NL, Mood NL Results Lab Laboratory Tests 05/19/17 06:18 A/P-Cardiology Admission Diagnosis Acute respiratory failure Non-ST elevation myocardial infarction Coronary artery disease Tachycardia Diabetes mellitus Assessment/Plan Status post acute respiratory failure, improved. Managed by Dr. Ludwig, no signs of pneumonia at this time. Acute chest pain with EKG changes and elevated troponin, patient has Q waves in the anterior leads, has dynamic T-wave, normal coronaries, no significant obstructive disease. No myocardial infarction 1. Severe nonischemic cardiomyopathy with ejection fraction 20 percent, segmental wall motion involving the apex, anteroapical and mid anterior wall and inferoapical segments. 2. Mild to moderate coronary artery disease nonobstructive disease Last echocardiogram showed left ventricular function is back to normal. Continue to monitor. Congestive heart failure, acute left ventricular systolic dysfunction, EF 20 percent. repeat echocardiogram showed left ventricular function and return to normal, her severe cardiomyopathy is probably due to severe hypoxemia and stress. Currently normal LV function. She was unable to tolerate beta blockers and/or MALINDA inhibitor and/or ARB due to severe hypotension. Continue to monitor at this time. No changes are recommended Shortness of breath, cough, reporting improvement. Continue to monitor Tachycardia, secondary to hypoxemia, became borderline bradycardic after beta blockers, currently back to baseline. Continue to monitor Tobaccoism by history. Htttjuu-Xhhmd-Bizxd disease, paraplegia History of indwelling urinary catheter with recurrent UTI, recurrent kidney stone with history of kidney stone basket in 2008 and lithotripsy Diabetes mellitus, followed and managed by primary care physician History of decubitus ulcer secondary to immobility with history of MRSA wound Depression Wheelchair bound History of cholecystectomy, genital wound debridement, muscle biopsy, right and left ankle closed reduction, right humerus, right femur, left femur, right tibia surgeries Clinical Quality Measures DVT/VTE Risk/Contraindication: Risk Factor Score Per Nursin RFS Level Per Nursing on Admit: 3=High ISABEL RUBIO MD May 19, 2017 10:45
[2017-05-19 11:51] VITALS: BP 138/62
[2017-05-19] MEDS: NS IV 1000 ML 1,000 ML IV SCH (12:44)
--- NOTE | 2017-05-19 14:10 | Progress Note (SOAP) ---
Subjective Subjective/Events-last exam Katarina agrees today that she needs to go to a local SNF to regain her strenght. She is very interested in [facility]. She was lonely yesterdya but is feeling better today. Review of Systems Date Seen by Provider: May 18, 2017 Time Seen by Provider: 10:00 Cardiovascular: No: Chest Pain, Palpitations Objective Exam Last Set of Vital Signs Vital Signs Date Time Temp Pulse Resp B/P (MAP) Pulse Ox O2 Delivery O2 Flow Rate FiO2 05/19/17 11:51 98.0 96 16 138/62 (87) 95 Room Air 05/19/17 04:38 1.00 05/17/17 14:53 50 Capillary Refill : Less Than 3 Seconds I&O Intake and Output 05/19/17 00:00 Intake Total 3460 ml Output Total 2250 ml Balance 1210 ml Intake Oral 1460 ml IV Total 2000 ml Output Urine Total 2250 ml # Bowel Movements 1 General: Alert, Oriented X3, Cooperative, No Acute Distress Lungs: Clear to Auscultation, Normal Air Movement Heart: Regular Rate, Normal S1, Normal S2, No Murmurs, Gallops, Rubs Abdomen: Normal Bowel Sounds, Soft, No Tenderness, No Masses Extremities: No Clubbing, No Cyanosis, No Edema Neuro: Normal Speech Psych/Mental Status: Mental Status NL, Mood NL Results/Procedures Lab Laboratory Tests 05/18/17 16:19: Glucometer 240H 05/19/17 00:10: Stool Occult Blood Immunoassay NEGATIVE 05/19/17 06:18: White Blood Count 5.7, Red Blood Count 2.85L, Hemoglobin 8.8#L, Hematocrit 27L, Mean Corpuscular Volume 96, Mean Corpuscular Hemoglobin 31, Mean Corpuscular Hemoglobin Concent 32, Red Cell Distribution Width 17.5H, Platelet Count 180, Mean Platelet Volume 10.0, Neutrophils (%) (Auto) 68, Lymphocytes (%) (Auto) 24 , Monocytes (%) (Auto) 7, Eosinophils (%) (Auto) 0, Basophils (%) (Auto) 0, Neutrophils # (Auto) 3.9, Lymphocytes # (Auto) 1.4, Monocytes # (Auto) 0.4, Eosinophils # (Auto) 0.0, Basophils # (Auto) 0.0, Sodium Level 141, Potassium Level 3.8, Chloride Level 111H, Carbon Dioxide Level 23, Anion Gap 7, Blood Urea Nitrogen 14, Creatinine 0.38L, Estimat Glomerular Filtration Rate > 60, BUN /Creatinine Ratio 37, Glucose Level 149H, Calcium Level 8.1L 05/19/17 10:31: Glucometer 145H 05/19/17 11:40: Lab Scanned Report Transfusion Reaction Form Microbiology 05/12/17 Blood Culture - Final, Complete No growth 05/12/17 Urine Culture - Final, Complete Escherichia coli Pseudomonas Aeruginosa Radiology CXR negative Procedures Right IJ placement due to difficult vascular access and need for pressors Assessment/Plan Assessment/Plan Plan (1) Acute systolic CHF (congestive heart failure) Status: Acute Assessment & Plan: Non-ischemic, started beta millie and sacubitril/valsartan but blood pressure too low to tolerate, started dopamine drip, weaning currently 2/2 off dopamine drip, restart low dose metoprolol per Dr. Eli 05/16 BP remains stable but soft, off dopamine for >24 hours; cardiology continues to follow and actively manage 05/17 -BP improved off dopamine -EF 20% on admission -patient being closely followed and managed by cardiology 05/18 - minor medication adjustments today. patient drops her BP quickly with addition of ACEI/BB. (2) Acute respiratory failure with hypoxia Status: Acute Assessment & Plan: Mucus plugging versus pneumonia, Zosyn started in ER, Dr. Ludwig consulted for Pulm/Critical care Much improved this am, now on 2 lpm nasal cannula. V/Q scan this morning due to contrast dye allergy. 05/14 V/Q scan low probability of PE, stable respiratory status, wean supplemental oxygen as tolerated, continue zosyn 2/2 has weak cough in general, worse currently and with increased mucous and difficulty clearing, continue flonase, use acapella, consider mucomyst and chest physiotherapy if needed /3 -currently on FiO2 50% Vapotherm -Mucomyst and IV Solumedrol started by Dr. Ludwig this morning -BNP 210 this AM -if unable to wean down FiO2 at all, consider chest physiotherapy -will continue to defer pulmonary management to Dr. Ludwig 05/17 -patient has made little to no progress from a respiratory standpoint, and is still on FiO2 50% Vapotherm at 10L -pt feels cough is more productive after Mucomyst was started yesterday -pt's hemoglobin has trended down, 14.6 on admission and 8.0 now; have significant concern that patient is not progressing with weaning from supplemental oxygen due to the significant decrease in her hemoglobin, the cause of which is unknown at this point; type and screen with labs in AM for possible transfusion if Hgb continues to trend down. Given that patient has reported pain at her cath site, concern that hematoma could be potential cause of Hgb drop and subsequent difficulty in weaning oxygen. Will discuss with cardiology. -Day 5 Zosyn 2/5 - Zosyn day 6. now on 1 LPM with no SOB. (3) Elevated troponin Status: Resolved Assessment & Plan: Cardiology consult, recommended cath, patient wanting to wait until respiratory status improved, monitoring troponin, on aspirin and therapeutic enoxaparin 05/14- underwent cardiac cath and found to have nonischemic cardiomyopathy, troponin trending down 2/3 -patient reported chest pain this AM -stat troponin ordered, negative -cardiology notified of patient complaints (4) Urinary tract infection Status: Acute Assessment & Plan: Unclear if infection versus colonization with indwelling catheter, will follow up culture results, continue zosyn 2/2 E coli and pseudomonas both sensitive to zosyn 2/3 -Day 4 Zosyn, continue antibiotics 2/4 -Day 5 Zosyn -WBC 6.4 --> 8.5 --> 5.4 05/18 -being treated with Zosyn (5) Aozkfcl-Axaku-Bgwbc disease Status: Chronic (6) Pressure ulcer of right ischium Status: Chronic Assessment & Plan: Air mattress, dressing changes per home routine (7) Chronic pain Status: Chronic Assessment & Plan: Resume home meds Qualifiers: Qualified Codes: G89.4 - Chronic pain syndrome (8) Chronic indwelling Chowdhury catheter Status: Chronic (9) DVT prophylaxis Status: Acute Assessment & Plan: Enoxaparin (10) Anemia Status: Acute Assessment & Plan: 05/17 -Hgb 14 --> 11.8 --> 10.3 --> 9.4 --> 8.0 -patient very pale, increased pallor compared to yesterday -high suspicion that patient is having difficulty weaning down on her oxygen requirements because of her significant drop in hgb -no obvious source of bleeding, but patient had a cardiac cath and pain in right groin at her cath site, known hematoma and with drop in hemoglobin concern that it could be continuing to expand, although patient does report pain has improved today -will type and screen patient tomorrow with AM labs in case of further drop in hemoglobin and discuss concerns with cardiology for their opinion. -at this point patient's only symptom is fatigue, however her inability to wean down on her oxygen requirement and supplemental oxygen is likely masking any shortness of breath the patient might otherwise be having 2/5 - I antiicpate that the hematoma is the reason for the drop in hemoglobin along with the dilutional aspect from high volume fluid resuscitation. we will transfuse 2 units today. (1) Acute systolic CHF (congestive heart failure) Status: Acute (2) Acute respiratory failure with hypoxia Status: Acute (3) Elevated troponin Status: Resolved (4) Urinary tract infection Status: Acute Qualifiers: (5) Pmtruvb-Egkvc-Cktkt disease Status: Chronic (6) Pressure ulcer of right ischium Status: Chronic (7) Chronic pain Status: Chronic Qualifiers: Qualified Codes: G89.4 - Chronic pain syndrome (8) Chronic indwelling Chowdhury catheter Status: Chronic (9) DVT prophylaxis Status: Acute (10) Anemia Status: Acute Clinical Quality Measures DVT/VTE Risk/Contraindication: Risk Factor Score Per Nursin RFS Level Per Nursing on Admit: 3=High NILO JONES MD May 19, 2017 2:10 pm
--- NOTE | 2017-05-19 14:16 | Progress Note (SOAP) ---
Subjective Subjective/Events-last exam Katarina was quite disappointed when she found out that she cannot go to [facility] based on her payor source. She would like to consider going home, but she does not have enough workers for 24h care. She is calling someone who wanted their old job back to see if she would be able to go home with home health. Review of Systems Date Seen by Provider: May 19, 2017 Time Seen by Provider: 10:00 Cardiovascular: No: Chest Pain, Palpitations Objective Exam Last Set of Vital Signs Vital Signs Date Time Temp Pulse Resp B/P (MAP) Pulse Ox O2 Delivery O2 Flow Rate FiO2 05/19/17 11:51 98.0 96 16 138/62 (87) 95 Room Air 05/19/17 04:38 1.00 05/17/17 14:53 50 Capillary Refill : Less Than 3 Seconds I&O Intake and Output 05/19/17 00:00 Intake Total 3460 ml Output Total 2250 ml Balance 1210 ml Intake Oral 1460 ml IV Total 2000 ml Output Urine Total 2250 ml # Bowel Movements 1 General: Alert, Oriented X3, Cooperative Lungs: Clear to Auscultation, Normal Air Movement Heart: Regular Rate, Normal S1, Normal S2, No Murmurs, Gallops, Rubs Abdomen: Normal Bowel Sounds, Soft, No Tenderness, No Hepatosplenomegaly, No Masses Extremities: No Clubbing, No Cyanosis, No Edema Neuro: Normal Speech Psych/Mental Status: Mental Status NL, Mood NL Results/Procedures Lab Laboratory Tests 05/18/17 16:19: Glucometer 240H 05/19/17 00:10: Stool Occult Blood Immunoassay NEGATIVE 05/19/17 06:18: White Blood Count 5.7, Red Blood Count 2.85L, Hemoglobin 8.8#L, Hematocrit 27L, Mean Corpuscular Volume 96, Mean Corpuscular Hemoglobin 31, Mean Corpuscular Hemoglobin Concent 32, Red Cell Distribution Width 17.5H, Platelet Count 180, Mean Platelet Volume 10.0, Neutrophils (%) (Auto) 68, Lymphocytes (%) (Auto) 24 , Monocytes (%) (Auto) 7, Eosinophils (%) (Auto) 0, Basophils (%) (Auto) 0, Neutrophils # (Auto) 3.9, Lymphocytes # (Auto) 1.4, Monocytes # (Auto) 0.4, Eosinophils # (Auto) 0.0, Basophils # (Auto) 0.0, Sodium Level 141, Potassium Level 3.8, Chloride Level 111H, Carbon Dioxide Level 23, Anion Gap 7, Blood Urea Nitrogen 14, Creatinine 0.38L, Estimat Glomerular Filtration Rate > 60, BUN /Creatinine Ratio 37, Glucose Level 149H, Calcium Level 8.1L 05/19/17 10:31: Glucometer 145H 05/19/17 11:40: Lab Scanned Report Transfusion Reaction Form Microbiology 05/12/17 Blood Culture - Final, Complete No growth 05/12/17 Urine Culture - Final, Complete Escherichia coli Pseudomonas Aeruginosa Radiology CXR negative Procedures Right IJ placement due to difficult vascular access and need for pressors Assessment/Plan Assessment/Plan Plan (1) Acute systolic CHF (congestive heart failure) Status: Acute Assessment & Plan: Non-ischemic, started beta millie and sacubitril/valsartan but blood pressure too low to tolerate, started dopamine drip, weaning currently 2/2 off dopamine drip, restart low dose metoprolol per Dr. Eli 05/16 BP remains stable but soft, off dopamine for >24 hours; cardiology continues to follow and actively manage 05/17 -BP improved off dopamine -EF 20% on admission -patient being closely followed and managed by cardiology 05/18 - minor medication adjustments today. patient drops her BP quickly with addition of ACEI/BB. (2) Acute respiratory failure with hypoxia Status: Acute Assessment & Plan: Mucus plugging versus pneumonia, Zosyn started in ER, Dr. Ludwig consulted for Pulm/Critical care Much improved this am, now on 2 lpm nasal cannula. V/Q scan this morning due to contrast dye allergy. 05/14 V/Q scan low probability of PE, stable respiratory status, wean supplemental oxygen as tolerated, continue zosyn 2/2 has weak cough in general, worse currently and with increased mucous and difficulty clearing, continue flonase, use acapella, consider mucomyst and chest physiotherapy if needed /3 -currently on FiO2 50% Vapotherm -Mucomyst and IV Solumedrol started by Dr. Ludwig this morning -BNP 210 this AM -if unable to wean down FiO2 at all, consider chest physiotherapy -will continue to defer pulmonary management to Dr. Ludwig 05/17 -patient has made little to no progress from a respiratory standpoint, and is still on FiO2 50% Vapotherm at 10L -pt feels cough is more productive after Mucomyst was started yesterday -pt's hemoglobin has trended down, 14.6 on admission and 8.0 now; have significant concern that patient is not progressing with weaning from supplemental oxygen due to the significant decrease in her hemoglobin, the cause of which is unknown at this point; type and screen with labs in AM for possible transfusion if Hgb continues to trend down. Given that patient has reported pain at her cath site, concern that hematoma could be potential cause of Hgb drop and subsequent difficulty in weaning oxygen. Will discuss with cardiology. -Day 5 Zosyn 2/5 - Zosyn day 6. now on 1 LPM with no SOB. 2/6 - Zosyn day of . will DC. change to prednisone 50mg daily for now. will taper at DC. (3) Elevated troponin Status: Resolved Assessment & Plan: Cardiology consult, recommended cath, patient wanting to wait until respiratory status improved, monitoring troponin, on aspirin and therapeutic enoxaparin 2- underwent cardiac cath and found to have nonischemic cardiomyopathy, troponin trending down 2/3 -patient reported chest pain this AM -stat troponin ordered, negative -cardiology notified of patient complaints (4) Urinary tract infection Status: Acute Assessment & Plan: Unclear if infection versus colonization with indwelling catheter, will follow up culture results, continue zosyn 2/2 E coli and pseudomonas both sensitive to zosyn 2/3 -Day 4 Zosyn, continue antibiotics 2/4 -Day 5 Zosyn -WBC 6.4 --> 8.5 --> 5.4 2/ -being treated with Zosyn 2/6 - Zosyn to DC today. likely colonization (5) Mzwjvxx-Vkqwa-Tqfuy disease Status: Chronic (6) Pressure ulcer of right ischium Status: Chronic Assessment & Plan: Air mattress, dressing changes per home routine (7) Chronic pain Status: Chronic Assessment & Plan: Resume home meds Qualifiers: Qualified Codes: G89.4 - Chronic pain syndrome (8) Chronic indwelling Chowdhury catheter Status: Chronic (9) DVT prophylaxis Status: Acute Assessment & Plan: Enoxaparin (10) Anemia Status: Acute Assessment & Plan: 2/4 -Hgb 14 --> 11.8 --> 10.3 --> 9.4 --> 8.0 -patient very pale, increased pallor compared to yesterday -high suspicion that patient is having difficulty weaning down on her oxygen requirements because of her significant drop in hgb -no obvious source of bleeding, but patient had a cardiac cath and pain in right groin at her cath site, known hematoma and with drop in hemoglobin concern that it could be continuing to expand, although patient does report pain has improved today -will type and screen patient tomorrow with AM labs in case of further drop in hemoglobin and discuss concerns with cardiology for their opinion. -at this point patient's only symptom is fatigue, however her inability to wean down on her oxygen requirement and supplemental oxygen is likely masking any shortness of breath the patient might otherwise be having 2/5 - I antiicpate that the hematoma is the reason for the drop in hemoglobin along with the dilutional aspect from high volume fluid resuscitation. we will transfuse 2 units today. 2/6 - hgb up to 8.8 today, will check again tomorrow. DC IVF today. Anticipate discharge to [facility] tomorrow. Discussed with Katarina that I really don't think she will do well at home and is likely to continue to decline. I storngly urge her to go to a SNF. We will discuss that again tomorrow, at which time I do believe she will be stabel for DC. She is not a candidate for a swing bed d/t her medicaid only status. (1) Acute systolic CHF (congestive heart failure) Status: Acute (2) Acute respiratory failure with hypoxia Status: Acute (3) Elevated troponin Status: Resolved (4) Urinary tract infection Status: Acute Qualifiers: (5) Jlpaqpy-Zwmse-Ugfkd disease Status: Chronic (6) Pressure ulcer of right ischium Status: Chronic (7) Chronic pain Status: Chronic Qualifiers: Qualified Codes: G89.4 - Chronic pain syndrome (8) Chronic indwelling Chowdhury catheter Status: Chronic (9) DVT prophylaxis Status: Acute (10) Anemia Status: Acute Clinical Quality Measures DVT/VTE Risk/Contraindication: Risk Factor Score Per Nursin RFS Level Per Nursing on Admit: 3=High NILO JONES MD May 19, 2017 2:16 pm
[2017-05-19 16:22] VITALS: BP 144/63
[2017-05-19 20:00] VITALS: BP 135/63
[2017-05-19] MEDS: MONTELUKAST 10 MG (SINGULAIR) TAB PO SCH (20:39)
[2017-05-19] MEDS: LACTOBACILLUS Acidoph/Bulgar (LACTINEX/FLORANEX) TAB PO SCH (20:39)
[2017-05-19] MEDS: ENOXAPARIN 40 MG/0.4 ML (LOVENOX) SYR SC SCH (20:40)
[2017-05-20] VITALS (7 sets, daily range): BP systolic 102–137; BP diastolic 53–75
[2017-05-20] MEDS: RT-ALBUTEROL/IPRATROPIUM 3 ML (DUONEB) VIAL INH SCH ×6 (02:51→22:15)
[2017-05-20 06:02] LABS: BASOPHILS % (AUTO) 0 % (0-10); EOSINOPHILS # (AUTO) 0.1 10^3/uL (0.0-0.3); EOSINOPHILS % (AUTO) 1 % (0-10); HEMATOCRIT 28 % (35-52); HEMOGLOBIN 8.8 G/DL (11.5-16.0); LYMPHOCYTES # (AUTO) 5.2 X 10^3 (1.0-4.0); LYMPHOCYTES % (AUTO) 53 % (12-44); MEAN CORPUSCULAR HEMOGLOBIN 31 PG (25-34); MEAN CORPUSCULAR HGB CONC 32 G/DL (32-36); MEAN CORPUSCULAR VOLUME 98 FL (80-99); MEAN PLATELET VOLUME 10.5 FL (7.4-10.4); MONOCYTES % (AUTO) 11 % (0-12); NEUTROPHILS # (AUTO) 3.4 X 10^3 (1.8-7.8); NEUTROPHILS % (AUTO) 35 % (42-75); PLATELET COUNT 204 10^3/uL (130-400); RED BLOOD COUNT 2.85 10^6/uL (4.35-5.85); RED CELL DISTRIBUTION WIDTH 17.4 % (10.0-14.5); WHITE BLOOD COUNT 9.8 10^3/uL (4.3-11.0)
[2017-05-20] MEDS: PANTOPRAZOLE 40 MG (PROTONIX) TAB PO SCH (06:19)
[2017-05-20] MEDS: predniSONE 20 MG TAB PO SCH (06:19)
[2017-05-20 06:29] LABS: BUN/CREATININE RATIO 40; CALCIUM 8.2 MG/DL (8.5-10.1); CARBON DIOXIDE 24 MMOL/L (21-32); CHLORIDE 110 MMOL/L (98-107); CREATININE SERUM 0.43 MG/DL (0.60-1.30); GFR ESTIMATED > 60; GLUCOSE 72 MG/DL (70-105); POTASSIUM 3.8 MMOL/L (3.6-5.0); SODIUM 143 MMOL/L (135-145)
[2017-05-20] MEDS: inSUlin (REGULAR) HUMAN 1 UNIT/0.01 ML (CHARGE PER UNIT) SC SCH ×4 (06:33→21:03)
[2017-05-20] MEDS: aCETylcysteine 20% (MUCOMYST) 30ML SOLN VIAL INH SCH ×6 (06:39→22:15)
[2017-05-20] MEDS: oxyCODONE/APAP 10/325MG (PERCOCET 10) TABLET PO PRN ×3 (06:39→18:18)
--- NOTE | 2017-05-20 08:53 | Cardiology Progress Note ---
Subjective Date Seen by Provider: May 20, 2017 Time Seen by Provider: 08:50 Subjective/Events-last exam Patient is sitting up in bed, reports episode of dyspnea yesterday, improved today. Complains of generalized weakness. Denies any CP. Review of Systems General: No Night Sweats, Fatigue, Malaise HEENT: No Visual Changes, No Dysphasia Pulmonary: Dyspnea, No Cough Cardiovascular: No: Chest Pain, Palpitations, Orthopnea Gastrointestinal: No: Nausea, Vomiting, Abdominal Pain Genitourinary: No Dysuria Musculoskeletal: No: neck pain, back pain Neurological: Weakness, No: Numbness, Change in speech, Confusion Objective-Cardiology Exam Last Set of Vital Signs Vital Signs 05/17/17 05/19/17 05/20/17 14:53 04:38 08:00 Temp 98.1 Pulse 86 Resp 16 B/P (MAP) 119/70 (86) Pulse Ox 91 O2 Delivery Room Air O2 Flow Rate 1.00 FiO2 50 Capillary Refill : Less Than 3 Seconds I&O Intake and Output 05/20/17 00:00 Intake Total 1842 ml Output Total 2475 ml Balance -633 ml Intake Oral 972 ml IV Total 100 ml Tube Feeding 770 ml Output Urine Total 2475 ml General: Alert, Oriented X3, Cooperative HEENT: Atraumatic, EOMI, Mucous Memb Moist/[place] Neck: Supple, No Thyromegaly Lungs: Clear to Auscultation, Normal Air Movement Heart: Regular Rate, Normal S1, Normal S2, No Murmurs, Gallops, Rubs Abdomen: Normal Bowel Sounds, Soft, No Tenderness, No Hepatosplenomegaly, No Masses Extremities: No Clubbing, No Cyanosis, No Edema Skin: No Rashes, Other (pallor) Neuro: Normal Speech Psych/Mental Status: Mental Status NL, Mood NL Results Lab Laboratory Tests 05/20/17 05:00 A/P-Cardiology Admission Diagnosis Acute respiratory failure Non-ST elevation myocardial infarction Coronary artery disease Tachycardia Diabetes mellitus Assessment/Plan Status post acute respiratory failure, improved. Managed by Dr. Ludwig, no signs of pneumonia at this time. Acute chest pain with EKG changes and elevated troponin, patient has Q waves in the anterior leads, has dynamic T-wave, normal coronaries, no significant obstructive disease. No myocardial infarction 1. Severe nonischemic cardiomyopathy with ejection fraction 20 percent, segmental wall motion involving the apex, anteroapical and mid anterior wall and inferoapical segments. 2. Mild to moderate coronary artery disease nonobstructive disease Last echocardiogram showed left ventricular function is back to normal. Continue to monitor. Congestive heart failure, acute left ventricular systolic dysfunction, EF 20 percent. repeat echocardiogram showed left ventricular function and return to normal, her severe cardiomyopathy is probably due to severe hypoxemia and stress. Currently normal LV function. She was unable to tolerate beta blockers and/or MALINDA inhibitor and/or ARB due to severe hypotension. Continue to monitor at this time. No changes are recommended Shortness of breath, cough, reporting improvement. Continue to monitor Tachycardia, secondary to hypoxemia, became borderline bradycardic after beta blockers, currently sinus rhythm. Continue to monitor Tobaccoism by history. Zhdfsrb-Fwbhy-Mfcta disease, paraplegia History of indwelling urinary catheter with recurrent UTI, recurrent kidney stone with history of kidney stone basket in 2008 and lithotripsy Diabetes mellitus, followed and managed by primary care physician History of decubitus ulcer secondary to immobility with history of MRSA wound Depression Wheelchair bound History of cholecystectomy, genital wound debridement, muscle biopsy, right and left ankle closed reduction, right humerus, right femur, left femur, right tibia surgeries Clinical Quality Measures DVT/VTE Risk/Contraindication: Risk Factor Score Per Nursin RFS Level Per Nursing on Admit: 3=High PHILIPPE BLAIR May 20, 2017 08:53
[2017-05-20] MEDS: ALPRAZolam 0.5 MG (XANAX) TAB PO PRN ×2 (09:18→21:02)
[2017-05-20] MEDS: ASPIRIN E.C. 81 MG (ECOTRIN) TAB PO SCH (09:18)
[2017-05-20] MEDS: FLUTICASONE NASAL SPRAY (FLONASE) 16 GM BTL NS SCH (09:19)
[2017-05-20] MEDS: METHYLNALTREXONE 12 MG/0.6 ML (RELISTOR) VIAL SQ SCH (09:19)
[2017-05-20] MEDS: LORATADINE (CLARITIN) 10 MG TAB PO SCH (09:27)
[2017-05-20] MEDS ORDERED: MONT10TA24 PO (11:22)
[2017-05-20] MEDS ORDERED: PRD20T PO (11:22)
[2017-05-20] MEDS ORDERED: ASPI-983 PO (11:22)
--- NOTE | 2017-05-20 11:28 | Discharge Inst-Skilled Nursing ---
Discharge Inst-Skilled NF Patient Instructions Patient Problems: CHARCOT NELY TOOTH DISEASE RESPIRATORY FAILURE CHRONIC CONSTIPATION CHRONIC INDWELLING LANDRUM CATHETER ACUTE CARDIOMYOPATHY SACRAL WOUND, PRESSURE INDUCED Goal: STRENGTHENING, RETURN TO BASELINE STATUS Patient Instructions: KINDLY FINISH PREDNISONE TAPER Consult/Follow Up/Orders Follow up appt.: ISABEL WILL SEE YOU ON HER NEXT CORRECTION ROUNDS. Skilled NF [place] [facility] I certify that SNF services are required to be given on an inpatient basis because of the above named patient's need for shelter care on a continuing basis for the conditions(s) for which he/she was receiving inpatient hospital services prior to his/her transfer to the SNF. Alf Facility Order: Nursing Services, Day Care Worker-Evaluate & Treat, Physical Therapy-Evaluate & Treat, Wound Care-Eval/Treat Discharge Diet: No Restrictions Daily Activity as Tolerated: Yes New & Resume Previous Orders Pneu Vac Indicated: Yes Discharge Medications New, Converted or Re-Newed RX: Other New Medications: Prednisone (Prednisone) 20 Mg Tab 20 MG PO DAILY, #22 TAB 0 Refills Take 3 tabs(60mg)daily,decrease by 1/2 tab(10mg)every other day. Aspirin (Aspirin EC) 81 Mg Tablet.dr 81 MG PO DAILY for 30 Days, TAB Montelukast Sodium (Montelukast Sodium) 10 Mg Tablet 10 MG PO HS for 30 Days, TAB Continued Medications: Albuterol Sulfate (Proair Hfa) 1 Puff Puff 2 PUFF IH Q4H PRN for SHORTNESS OF BREATH, #1 INHALER 1 PUFF = 90 MCG Alprazolam (Alprazolam) 0.5 Mg Tablet 0.5 MG PO TID PRN for ANXIETY Biotin (Biotin) 1,000 Mcg Tab.chew 2000 MCG PO DAILY, TAB TAKES 2 (1,000 MCG) GUMMIES Cranberry Conc/Ascorbic Acid (Cranberry Plus Vitamin C Sftgl) 1 Each Capsule 2 CAP PO HS, CAP Fluticasone Propionate (Fluticasone Propionate) 16 Gm [place].susp 1 SPRAY NS DAILY, EA L.acidoph & Paracasei,B.lactis (Probiotic) 1 Each Capsule 1 CAP PO HS, CAP Metformin HCl (Metformin HCl) 500 Mg Tablet 250 MG PO BID, TAB TAKES 1/2 OF A (500 MG) TABLET Multivitamin (Multivitamins) 1 Each Tablet 1 TAB PO DAILY, TAB Oxycodone HCl/Acetaminophen (Oxycodone-Acetaminophen 10-325) 1 Each Tablet 1 TAB PO Q4H PRN for PAIN-MODERATE Nilo Choe May 20, 2017 11:23 Copy Copies To 1: NILO PARISH APRN, MD May 20, 2017 11:28 am
--- NOTE | 2017-05-20 11:37 | Cardiology Progress Note ---
Subjective Date Seen by Provider: May 20, 2017 Time Seen by Provider: 09:00 Subjective/Events-last exam patient is laying down in bed, feeling better, still complaining of generalized fatigue and loss of energy. Had mild chest pressure. Review of Systems General: No Chills, No Night Sweats, No Fatigue, No Malaise, No Appetite, No Other HEENT: No Head Aches, No Visual Changes, No Eye Pain, No Ear Pain, No Dysphasia , No Sinus Congestion, No Post Nasal Drip, No Sore Throat, No Other Pulmonary: Dyspnea, No Cough, No Pleuritic Chest Pain, No Other Cardiovascular: Chest Pain, No: Palpitations, Orthopnea, Paroxysmal Noc. Dyspnea, Edema, Lt Headedness, Other Objective-Cardiology Exam Last Set of Vital Signs Vital Signs 05/17/17 05/19/17 05/20/17 14:53 04:38 08:00 Temp 98.1 Pulse 86 Resp 16 B/P (MAP) 119/70 (86) Pulse Ox 91 O2 Delivery Room Air O2 Flow Rate 1.00 FiO2 50 Capillary Refill : Less Than 3 Seconds I&O Intake and Output 05/20/17 00:00 Intake Total 1842 ml Output Total 2475 ml Balance -633 ml Intake Oral 972 ml IV Total 100 ml Tube Feeding 770 ml Output Urine Total 2475 ml General: Alert, Oriented X3, Cooperative HEENT: Atraumatic, EOMI, Mucous Memb Moist/[place] Neck: Supple, No Thyromegaly Lungs: Clear to Auscultation, Normal Air Movement Heart: Regular Rate, Normal S1, Normal S2, No Murmurs, Gallops, Rubs Abdomen: Normal Bowel Sounds, Soft, No Tenderness, No Hepatosplenomegaly, No Masses Extremities: No Clubbing, No Cyanosis, No Edema Skin: No Rashes, Other (pallor) Neuro: Normal Speech Psych/Mental Status: Mental Status NL, Mood NL Results Lab Laboratory Tests 05/20/17 05:00 A/P-Cardiology Admission Diagnosis Acute respiratory failure Non-ST elevation myocardial infarction Coronary artery disease Tachycardia Diabetes mellitus Assessment/Plan Status post acute respiratory failure, improved. Managed by Dr. Ludwig, no signs of pneumonia at this time. Acute chest pain with EKG changes and elevated troponin, patient has Q waves in the anterior leads, has dynamic T-wave, normal coronaries, no significant obstructive disease. No myocardial infarction 1. Severe nonischemic cardiomyopathy with ejection fraction 20 percent, segmental wall motion involving the apex, anteroapical and mid anterior wall and inferoapical segments. 2. Mild to moderate coronary artery disease nonobstructive disease Last echocardiogram showed left ventricular function is back to normal. Continue to monitor. Congestive heart failure, acute left ventricular systolic dysfunction, EF 20 percent. repeat echocardiogram showed left ventricular function and return to normal, her severe cardiomyopathy is probably due to severe hypoxemia and stress. Currently normal LV function. She was unable to tolerate beta blockers and/or MALINDA inhibitor and/or ARB due to severe hypotension. Continue to monitor at this time. No changes are recommended Shortness of breath, cough, reporting improvement. Continue to monitor Tachycardia, secondary to hypoxemia, became borderline bradycardic after beta blockers, currently sinus rhythm. Continue to monitor Tobaccoism by history. Syftvqg-Xahxw-Hsvaw disease, paraplegia History of indwelling urinary catheter with recurrent UTI, recurrent kidney stone with history of kidney stone basket in 2008 and lithotripsy Diabetes mellitus, followed and managed by primary care physician History of decubitus ulcer secondary to immobility with history of MRSA wound Depression From cardiac standpoint patient can be discharged and follow-up as an outpatient Wheelchair bound History of cholecystectomy, genital wound debridement, muscle biopsy, right and left ankle closed reduction, right humerus, right femur, left femur, right tibia surgeries Clinical Quality Measures DVT/VTE Risk/Contraindication: Risk Factor Score Per Nursin RFS Level Per Nursing on Admit: 3=High ISABEL RUBIO MD May 20, 2017 11:37
--- NOTE | 2017-05-20 15:38 | Physical Therapy Daily Note ---
PT Daily Note-Current Subjective Pt sitting up with LLE propped on pillow upon arrival. Pt agrees to stretching/ PROM Supine Ex for PT. Pain Location: No Pain Reported Mental Status Patient Orientation: Person, Place, Time, Situation Attachments: IV Transfers Functional [place] Measure 0=Not Assessed/NA 4=Minimal Assistance 1=Total Assistance 5=Supervision or Setup 2=Maximal Assistance 6=Modified [place] 3=Moderate Assistance 7=Complete IndependenceIRFPAI Quality Coding Scale 6 Independent with activity with or without an assistive device 5 Patient requires set up or clean up by helper. Patient completes activity by themselves 4 Supervision or touching assist (CGA). [place] provide cues , steadying assist 3 The helper provides less than half the effort to complete the activity 2 The helper provides more than half the effort to complete the activity 1 Dependent. The helper does all the effort to complete an activity 7 Patient refused to complete or attempt activity 9 The patient did not perform the activity before the current illness or injury 88 Not attempted due to Medical conditions or safety concerns Weight Bearing Right Lower Extremity: Right Non Weight Bearing Left Lower Extremity: Left Non Weight Bearing patient is paraplegic Exercises Supine Ex: Ankle pumps, Heel Slides, Straight leg raise Supine Reps: 15 Treatments Pt wants to discuss with ROUNDING MACHINE TENDER about ARU and how it works as well as what the alternatives might be compared to Dr wanting to send pt to SNF. Pt reports not wanting to discharge to SNF. ROUNDING MACHINE TENDER completes PROM Supine Ex in bed. Pt visits with Mover Helper and ROUNDING MACHINE TENDER again at the end of tx. Pt resting in bed at end of tx with all needs met. ROUNDING MACHINE TENDER visits ARU Mover Helper as well as Inpt PT Director about pt wanting to be screened for ARU. Assessment Current Status: Good Progress Pt is excited for PT tx although pt is PROM only. PT Bag Washer Goals Bag Washer Goals PT Care Home Goals Time Frame: May 29, 2017 Transfers (B,C,W/C) (FIM): 1 PT Plan Problem List Problem List: Activity Tolerance, Functional Strength Treatment/Plan Treatment Plan: Continue Plan of Care Treatment Plan: Bed Mobility, Education, Functional Activity Jen, Functional Strength, Therapeutic Exercise, Transfers Treatment Duration: May 29, 2017 Frequency: 5 times per week Estimated Hrs Per Day: .25 hour per day Patient and/or Family Agrees t: Yes Safety Risks/Education Patient Education: Correct Positioning, Safety Issues Teaching Recipient: Patient, Health Care Proxy Teaching Methods: Discussion Response to Teaching: Verbalize Understanding Time/GCodes Time In: 1400 Time Out: 1445 Total Billed Treatment Time: 45 Total Billed Treatment 1, FA x2 (25m) & EX (20m) VIOLETTA WALKER ROUNDING MACHINE TENDER May 20, 2017 15:38
--- NOTE | 2017-05-20 16:13 | Progress Note (SOAP) ---
Subjective Subjective/Events-last exam Katarina is concerned about going home versus to a group home. She has never been a patient at a group home, and this is very disconcerting to her. Review of Systems Date Seen by Provider: May 20, 2017 Time Seen by Provider: 10:00 Pulmonary: No Dyspnea Cardiovascular: No: Chest Pain Objective Exam Last Set of Vital Signs Vital Signs Date Time Temp Pulse Resp B/P (MAP) Pulse Ox O2 Delivery O2 Flow Rate FiO2 05/20/17 15:44 93 Room Air 05/20/17 12:00 98.4 100 14 135/75 (95) 05/19/17 04:38 1.00 05/17/17 14:53 50 Capillary Refill : Less Than 3 Seconds I&O Intake and Output 05/20/17 00:00 Intake Total 1842 ml Output Total 2475 ml Balance -633 ml Intake Oral 972 ml IV Total 100 ml Tube Feeding 770 ml Output Urine Total 2475 ml General: Alert, Oriented X3, Cooperative, No Acute Distress Lungs: Clear to Auscultation, Normal Air Movement Heart: Regular Rate, Normal S1, Normal S2, No Murmurs, Gallops, Rubs Abdomen: Normal Bowel Sounds, Soft, No Tenderness, No Hepatosplenomegaly, No Masses Extremities: No Clubbing, No Cyanosis, No Edema Psych/Mental Status: Mental Status NL, Mood NL Results/Procedures Lab Laboratory Tests 05/19/17 16:18: Glucometer 248H 05/19/17 22:12: Glucometer 150H 05/20/17 05:00: White Blood Count 9.8, Red Blood Count 2.85L, Hemoglobin 8.8L, Hematocrit 28L, Mean Corpuscular Volume 98, Mean Corpuscular Hemoglobin 31, Mean Corpuscular Hemoglobin Concent 32, Red Cell Distribution Width 17.4H, Platelet Count 204, Mean Platelet Volume 10.5H, Neutrophils (%) (Auto) 35L, Lymphocytes (%) (Auto) 53H, Monocytes (%) (Auto) 11, Eosinophils (%) (Auto) 1, Basophils (%) (Auto) 0, Neutrophils # (Auto) 3.4, Lymphocytes # (Auto) 5.2H, Monocytes # (Auto) 1.0, Eosinophils # (Auto) 0.1, Basophils # (Auto) 0.0, Sodium Level 143, Potassium Level 3.8, Chloride Level 110H, Carbon Dioxide Level 24, Anion Gap 9, Blood Urea Nitrogen 17, Creatinine 0.43L, Estimat Glomerular Filtration Rate > 60, BUN /Creatinine Ratio 40, Glucose Level 72, Calcium Level 8.2L 05/20/17 11:08: Glucometer 199H 05/20/17 15:44: Glucometer 143H Microbiology 05/12/17 Blood Culture - Final, Complete No growth 05/12/17 Urine Culture - Final, Complete Escherichia coli Pseudomonas Aeruginosa Radiology CXR negative Procedures Right IJ placement due to difficult vascular access and need for pressors Assessment/Plan Assessment/Plan Plan (1) Acute systolic CHF (congestive heart failure) Status: Acute Assessment & Plan: Non-ischemic, started beta millie and sacubitril/valsartan but blood pressure too low to tolerate, started dopamine drip, weaning currently 2/2 off dopamine drip, restart low dose metoprolol per Dr. Eli 05/16 BP remains stable but soft, off dopamine for >24 hours; cardiology continues to follow and actively manage 05/17 -BP improved off dopamine -EF 20% on admission -patient being closely followed and managed by cardiology 05/18 - minor medication adjustments today. patient drops her BP quickly with addition of ACEI/BB. 05/20 - patient has been stable through the past 48h and is stable for discharge, she will follow up with Dr Eli on an outpatient basis. (2) Acute respiratory failure with hypoxia Status: Acute Assessment & Plan: Mucus plugging versus pneumonia, Zosyn started in ER, Dr. Ludwig consulted for Pulm/Critical care Much improved this am, now on 2 lpm nasal cannula. V/Q scan this morning due to contrast dye allergy. 05/14 V/Q scan low probability of PE, stable respiratory status, wean supplemental oxygen as tolerated, continue zosyn 2/2 has weak cough in general, worse currently and with increased mucous and difficulty clearing, continue flonase, use acapella, consider mucomyst and chest physiotherapy if needed 3 -currently on FiO2 50% Vapotherm -Mucomyst and IV Solumedrol started by Dr. Ludwig this morning -BNP 210 this AM -if unable to wean down FiO2 at all, consider chest physiotherapy -will continue to defer pulmonary management to Dr. Ludwig 05/17 -patient has made little to no progress from a respiratory standpoint, and is still on FiO2 50% Vapotherm at 10L -pt feels cough is more productive after Mucomyst was started yesterday -pt's hemoglobin has trended down, 14.6 on admission and 8.0 now; have significant concern that patient is not progressing with weaning from supplemental oxygen due to the significant decrease in her hemoglobin, the cause of which is unknown at this point; type and screen with labs in AM for possible transfusion if Hgb continues to trend down. Given that patient has reported pain at her cath site, concern that hematoma could be potential cause of Hgb drop and subsequent difficulty in weaning oxygen. Will discuss with cardiology. -Day 5 Zosyn 2/5 - Zosyn day 6. now on 1 LPM with no SOB. 2/6 - Zosyn day . will DC. change to prednisone 50mg daily for now. will taper at DC. 05/20 - we will move to PRN albuterol at this point (3) Elevated troponin Status: Resolved Assessment & Plan: Cardiology consult, recommended cath, patient wanting to wait until respiratory status improved, monitoring troponin, on aspirin and therapeutic enoxaparin 05/14- underwent cardiac cath and found to have nonischemic cardiomyopathy, troponin trending down 2/3 -patient reported chest pain this AM -stat troponin ordered, negative -cardiology notified of patient complaints (4) Urinary tract infection Status: Acute Assessment & Plan: Unclear if infection versus colonization with indwelling catheter, will follow up culture results, continue zosyn 2/2 E coli and pseudomonas both sensitive to zosyn 2/3 -Day 4 Zosyn, continue antibiotics 2/4 -Day 5 Zosyn -WBC 6.4 --> 8.5 --> 5.4 2/ -being treated with Zosyn 2/6 - Zosyn to DC today. likely colonization (5) Gckepki-Msufm-Jppvh disease Status: Chronic (6) Pressure ulcer of right ischium Status: Chronic Assessment & Plan: Air mattress, dressing changes per home routine (7) Chronic pain Status: Chronic Assessment & Plan: Resume home meds Qualifiers: Qualified Codes: G89.4 - Chronic pain syndrome (8) Chronic indwelling Chowdhury catheter Status: Chronic (9) DVT prophylaxis Status: Acute Assessment & Plan: Enoxaparin (10) Anemia Status: Acute Assessment & Plan: 05/17 -Hgb 14 --> 11.8 --> 10.3 --> 9.4 --> 8.0 -patient very pale, increased pallor compared to yesterday -high suspicion that patient is having difficulty weaning down on her oxygen requirements because of her significant drop in hgb -no obvious source of bleeding, but patient had a cardiac cath and pain in right groin at her cath site, known hematoma and with drop in hemoglobin concern that it could be continuing to expand, although patient does report pain has improved today -will type and screen patient tomorrow with AM labs in case of further drop in hemoglobin and discuss concerns with cardiology for their opinion. -at this point patient's only symptom is fatigue, however her inability to wean down on her oxygen requirement and supplemental oxygen is likely masking any shortness of breath the patient might otherwise be having 2 - I antiicpate that the hematoma is the reason for the drop in hemoglobin along with the dilutional aspect from high volume fluid resuscitation. we will transfuse 2 units today. 05/19 - hgb up to 8.8 today, will check again tomorrow. DC IVF today. 05/20 - stable Anticipate discharge to [facility] tomorrow. Discussed with Katarina that I really don't think she will do well at home and is likely to continue to decline. I storngly urge her to go to a SNF. We will discuss that again tomorrow, at which time I do believe she will be stabel for DC. She is not a candidate for a swing bed d/t her medicaid only status. May 20 - Referral was placed today. Apparently it is in holding for [facility] to approve at this point, so we will hope for DC tomorrow. moniqueeint needs both PT and OT as well as a controlled environment to make sure she is stable from a respiratory perspective. I did assure her that after a few short weeks, she will likely be able to go home. (1) Acute systolic CHF (congestive heart failure) Status: Acute (2) Acute respiratory failure with hypoxia Status: Acute (3) Elevated troponin Status: Resolved (4) Urinary tract infection Status: Acute Qualifiers: (5) Pfelonp-Fhbdb-Uzzff disease Status: Chronic (6) Pressure ulcer of right ischium Status: Chronic (7) Chronic pain Status: Chronic Qualifiers: Qualified Codes: G89.4 - Chronic pain syndrome (8) Chronic indwelling Chowdhury catheter Status: Chronic (9) DVT prophylaxis Status: Acute (10) Anemia Status: Acute Clinical Quality Measures DVT/VTE Risk/Contraindication: Risk Factor Score Per Nursin RFS Level Per Nursing on Admit: 3=High NILO JONES MD May 20, 2017 4:13 pm
[2017-05-20] MEDS: ENOXAPARIN 40 MG/0.4 ML (LOVENOX) SYR SC SCH (21:02)
[2017-05-20] MEDS: LACTOBACILLUS Acidoph/Bulgar (LACTINEX/FLORANEX) TAB PO SCH (21:02)
[2017-05-20] MEDS: MONTELUKAST 10 MG (SINGULAIR) TAB PO SCH (21:02)
[2017-05-21 00:35] VITALS: BP 104/52
[2017-05-21 04:15] VITALS: BP 110/55
[2017-05-21 05:39] LABS: BASOPHILS % (AUTO) 0 % (0-10); EOSINOPHILS # (AUTO) 0.2 10^3/uL (0.0-0.3); EOSINOPHILS % (AUTO) 2 % (0-10); HEMATOCRIT 29 % (35-52); HEMOGLOBIN 9.3 G/DL (11.5-16.0); LYMPHOCYTES # (AUTO) 6.5 X 10^3 (1.0-4.0); LYMPHOCYTES % (AUTO) 56 % (12-44); MEAN CORPUSCULAR HEMOGLOBIN 31 PG (25-34); MEAN CORPUSCULAR HGB CONC 32 G/DL (32-36); MEAN CORPUSCULAR VOLUME 98 FL (80-99); MEAN PLATELET VOLUME 9.8 FL (7.4-10.4); MONOCYTES # (AUTO) 1.2 X 10^3 (0.0-1.0); MONOCYTES % (AUTO) 10 % (0-12); NEUTROPHILS # (AUTO) 3.8 X 10^3 (1.8-7.8); NEUTROPHILS % (AUTO) 33 % (42-75); PLATELET COUNT 260 10^3/uL (130-400); RED BLOOD COUNT 2.99 10^6/uL (4.35-5.85); RED CELL DISTRIBUTION WIDTH 17.1 % (10.0-14.5); WHITE BLOOD COUNT 11.7 10^3/uL (4.3-11.0)
[2017-05-21] MEDS: inSUlin (REGULAR) HUMAN 1 UNIT/0.01 ML (CHARGE PER UNIT) SC SCH ×2 (05:49→11:05)
[2017-05-21] MEDS: PANTOPRAZOLE 40 MG (PROTONIX) TAB PO SCH (06:09)
[2017-05-21] MEDS: predniSONE 20 MG TAB PO SCH (06:09)
[2017-05-21 06:12] LABS: BUN/CREATININE RATIO 57; CALCIUM 8.7 MG/DL (8.5-10.1); CARBON DIOXIDE 26 MMOL/L (21-32); CHLORIDE 106 MMOL/L (98-107); CREATININE SERUM 0.35 MG/DL (0.60-1.30); GFR ESTIMATED > 60; GLUCOSE 67 MG/DL (70-105); POTASSIUM 3.8 MMOL/L (3.6-5.0); SODIUM 141 MMOL/L (135-145)
[2017-05-21] MEDS ORDERED: aCETylcysteine 20% (MUCOMYST) 30ML SOLN VIAL INH SCH ×3 (07:00→08:00)
[2017-05-21] MEDS ORDERED: RT-ALBUTEROL/IPRATROPIUM 3 ML (DUONEB) VIAL INH SCH ×3 (07:00→08:00)
[2017-05-21 08:30] VITALS: BP 162/69
--- NOTE | 2017-05-21 08:37 | Physical Therapy Daily Note ---
PT Daily Note-Current Subjective Patient is very agreeable to participate with PT. Patient reports she wants to go home today. Pain Numeric Pain Scale: 0-No Pain Location: No Pain Reported Mental Status Patient Orientation: Normal For Age Attachments: Oxygen, [place] Catheter Transfers Functional [place] Measure 0=Not Assessed/NA 4=Minimal Assistance 1=Total Assistance 5=Supervision or Setup 2=Maximal Assistance 6=Modified [place] 3=Moderate Assistance 7=Complete IndependenceIRFPAI Quality Coding Scale 6 Independent with activity with or without an assistive device 5 Patient requires set up or clean up by helper. Patient completes activity by themselves 4 Supervision or touching assist (CGA). [place] provide cues , steadying assist 3 The helper provides less than half the effort to complete the activity 2 The helper provides more than half the effort to complete the activity 1 Dependent. The helper does all the effort to complete an activity 7 Patient refused to complete or attempt activity 9 The patient did not perform the activity before the current illness or injury 88 Not attempted due to Medical conditions or safety concerns Transfers (B, C, W/C) (FIM): 1 Scootin Rollin PLOF and currently dependent with all bed mobility, repositioning and transfers Weight Bearing Right Lower Extremity: Right Non Weight Bearing Left Lower Extremity: Left Non Weight Bearing patient is paraplegic Exercises Supine Ex: Ankle pumps, Heel Slides, Straight leg raise, Hip abd/add Supine Reps: 25 (bilaterally PROM) Assessment Patient is currently at PLOF with all bed mobility and transfers at dependent. Due to patient's deteriorating disease, she will continue to require dependent assist with all mobility, ADL's, etc. Patient has multiple caregivers at home that will continue to assist patient with needs as reports from patient. 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
[2017-05-21] MEDS: ALPRAZolam 0.5 MG (XANAX) TAB PO PRN (09:43)
[2017-05-21] MEDS: oxyCODONE/APAP 10/325MG (PERCOCET 10) TABLET PO PRN (09:43)
[2017-05-21] MEDS: LORATADINE (CLARITIN) 10 MG TAB PO SCH (09:43)
[2017-05-21] MEDS: ASPIRIN E.C. 81 MG (ECOTRIN) TAB PO SCH (09:43)
[2017-05-21] MEDS: ENOXAPARIN 40 MG/0.4 ML (LOVENOX) SYR SC SCH (09:44)
[2017-05-21] MEDS: FLUTICASONE NASAL SPRAY (FLONASE) 16 GM BTL NS SCH (09:44)
[2017-05-21 12:00] VITALS: BP 162/69
--- NOTE | 2017-05-21 13:00 | Cardiology Progress Note ---
Subjective Date Seen by Provider: May 21, 2017 Time Seen by Provider: 11:45 Subjective/Events-last exam Patient is laying down in bed, feeling better, denied any chest pain, concern about going to a fpc. Review of Systems General: No Chills, No Night Sweats, Fatigue, No Malaise, No Appetite, No Other HEENT: No Head Aches, No Visual Changes, No Eye Pain, No Ear Pain, No Dysphasia , No Sinus Congestion, No Post Nasal Drip, No Sore Throat, No Other Pulmonary: Dyspnea, No Cough, No Pleuritic Chest Pain, No Other Cardiovascular: No: Chest Pain, Palpitations, Orthopnea, Paroxysmal Noc. Dyspnea, Edema, Lt Headedness, Other Objective-Cardiology Exam Last Set of Vital Signs Vital Signs 05/17/17 05/19/17 05/21/17 05/21/17 14:53 04:38 08:30 09:00 Temp 97.7 Pulse 91 Resp 20 B/P (MAP) 162/69 (100) Pulse Ox 92 O2 Delivery Room Air O2 Flow Rate 1.00 FiO2 50 Capillary Refill : Less Than 3 Seconds I&O Intake and Output 05/21/17 00:00 Intake Total 2420 ml Output Total 4555 ml Balance -2135 ml Intake Oral 2420 ml Output Urine Total 4555 ml General: Alert, Oriented X3, Cooperative, No Acute Distress HEENT: Atraumatic, EOMI, Mucous Memb Moist/[place] Neck: Supple, No Thyromegaly Lungs: Clear to Auscultation, Normal Air Movement Heart: Regular Rate, Normal S1, Normal S2, No Murmurs, Gallops, Rubs Abdomen: Normal Bowel Sounds, Soft, No Tenderness, No Hepatosplenomegaly, No Masses Extremities: No Clubbing, No Cyanosis, No Edema Skin: No Rashes, Other (pallor) Neuro: Normal Speech Psych/Mental Status: Mental Status NL, Mood NL Results Lab Laboratory Tests 05/21/17 05:25 A/P-Cardiology Admission Diagnosis Acute respiratory failure Non-ST elevation myocardial infarction Coronary artery disease Tachycardia Diabetes mellitus Assessment/Plan Status post acute respiratory failure, improved. Managed by Dr. Ludwig, no signs of pneumonia at this time. Acute chest pain with EKG changes and elevated troponin, patient has Q waves in the anterior leads, has dynamic T-wave, normal coronaries, no significant obstructive disease. No myocardial infarction 1. Severe nonischemic cardiomyopathy with ejection fraction 20 percent, segmental wall motion involving the apex, anteroapical and mid anterior wall and inferoapical segments. 2. Mild to moderate coronary artery disease nonobstructive disease Last echocardiogram showed left ventricular function is back to normal. Continue to monitor. Congestive heart failure, acute left ventricular systolic dysfunction, EF 20 percent. repeat echocardiogram showed left ventricular function and return to normal, her severe cardiomyopathy is probably due to severe hypoxemia and stress. Currently normal LV function. She was unable to tolerate beta blockers and/or MALINDA inhibitor and/or ARB due to severe hypotension. I will monitor blood pressure closely, consider starting ARB and evaluate her tolerance and response as an outpatient Tachycardia, secondary to hypoxemia, became borderline bradycardic after beta blockers, currently sinus rhythm. Continue to monitor Tobaccoism by history. Emwndbc-Extlb-Iqrcz disease, paraplegia History of indwelling urinary catheter with recurrent UTI, recurrent kidney stone with history of kidney stone basket in 2008 and lithotripsy Diabetes mellitus, followed and managed by primary care physician History of decubitus ulcer secondary to immobility with history of MRSA wound Depression From cardiac standpoint patient can be discharged and follow-up as an outpatient Wheelchair bound History of cholecystectomy, genital wound debridement, muscle biopsy, right and left ankle closed reduction, right humerus, right femur, left femur, right tibia surgeries Clinical Quality Measures DVT/VTE Risk/Contraindication: Risk Factor Score Per Nursin RFS Level Per Nursing on Admit: 3=High ISABEL RUBIO MD May 21, 2017 13:00
== END 2017-05-21 17:30 | disposition left against medical advice (07) | DRG 189 ==
LOC: EDUNIT# 18:33 → ER 18:34 → EEVIPCON 20:00 → ICU 20:00 → 4TH 05-18 15:20
PROVIDERS: ADMIT Family Medicine; ATTEND Family Medicine
PROC: 4A023N7 Measurement of Cardiac Sampling and Pressure, Left Heart, Percutaneous Approach (ICD-10-PCS; principal; 2017-05-13)
PROC: B2111ZZ Fluoroscopy of Multiple Coronary Arteries using Low Osmolar Contrast (ICD-10-PCS; 2017-05-13)
PROC: B2151ZZ Fluoroscopy of Left Heart using Low Osmolar Contrast (ICD-10-PCS; 2017-05-13)
DX: J96.01 Acute respiratory failure with hypoxia (principal); I50.21 Acute systolic (congestive) heart failure; I42.9 Cardiomyopathy, unspecified; I25.10 Atherosclerotic heart disease of native coronary artery without angina pectoris; G60.0 Hereditary motor and sensory neuropathy; G82.20 Paraplegia, unspecified; T83.518A Infection and inflammatory reaction due to other urinary catheter, initial encounter; I97.630 Postprocedural hematoma of a circulatory system organ or structure following a cardiac catheterization; N39.0 Urinary tract infection, site not specified; L89.159 Pressure ulcer of sacral region, unspecified stage; E11.9 Type 2 diabetes mellitus without complications; R00.0 Tachycardia, unspecified; F32.9 Major depressive disorder, single episode, unspecified; F41.9 Anxiety disorder, unspecified; Z99.3 Dependence on wheelchair; Z79.84 Long term (current) use of oral hypoglycemic drugs; Z87.891 Personal history of nicotine dependence
CPT/HCPCS: 36415; 71045; 78582; 80048; 80053; 80061; 81000; 82274; 82550; 82553; 82805; 82962; 83605; 83735; 83874; 83880; 84100; 84484; 85007; 85025; 85027; 85610; 85730; 86850; 86900; 86901; 86920; 87040; 87077; 87088; 87186; 93005; 93041; 93306; 93308; 93458; 93926; 93970; 94640; 94660; 94760; 96365; 96372; 96375

== ENCOUNTER → 2017-06-12 | Outpatient (CLI) | payer MEDICAID ==
[~2017-06-12] MED LIST changes: +ASPI-983 PO; +MONT10TA24 PO; +POLY17PO6 PO
== END ==
LOC: LABNPT 17:49
PROVIDERS: ATTEND Nurse Practitioner Family
DX: R10.84 Generalized abdominal pain (principal)
CPT/HCPCS: 87088; 87186

== ENCOUNTER 2017-06-27 18:34 | Emergency (ER) | payer MEDICAID ==
[~2017-06-27] VITALS: Ht 154.9 cm; Wt 56.7 kg
--- OUTSIDE RECORDS SUMMARY | 2017-06-27 18:48 | XMS REPORT | Clinical Summary ---
Author Author [facility] Organization [facility] Address Unknown Phone Unavailable Care Team Providers Care Operations Business Partner Name Role Phone Marcus Richard MD PCP Raffi Rey MD Unavailable Brandyn Montoya MD Unavailable Source Comments Some departments are not documenting in the electronic medical record. 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 Pulse 80 03/31/2009 6:00 AM MARBLE INSTALLER Temperature 36.6 C (97.9 F) 03/31/2009 6:00 AM MARBLE INSTALLER Respiratory Rate - - Oxygen Saturation 95% 03/31/2009 6:00 AM MARBLE INSTALLER Inhaled Oxygen - - Concentration Weight 68.1 kg (150 lb 2.1 oz) 03/23/2009 3:00 PM MARBLE INSTALLER Height 154.9 cm (5' 1") 03/23/2009 3:00 PM MARBLE INSTALLER Body Mass Index 28.37 03/23/2009 3:00 PM MARBLE INSTALLER Plan of Treatment Health Maintenance Due Date Last Done Comments HEPATITIS C SCREENING 1958 PHYSICAL (COMPREHENSIVE) 1965 EXAM PERTUSSIS VACCINE 1969 HIV SCREENING 1973 TETANUS VACCINE 11/03/1975 CERVICAL CANCER SCREENING 1988 BREAST CANCER SCREENING 1998 COLORECTAL CANCER 2008 SCREENING INFLUENZA VACCINE 01/11/2018 Results Not on filefrom Last 3 Months
--- NOTE | 2017-06-27 20:05 | ED General ---
General Chief Complaint: General Problems/Pain Stated Complaint: GENERALIZED PAIN Nursing Triage Note: TO ED VIA MOTORIZED WC. PT REPORTS HAVING SEVERE PAIN AND IS OUT OF PERCOCET 10/325MG. TRIED [facility] AND PROVIDER NOT AVAILABLE. CALLED [facility] AND [facility] NURSE LINE AND ALL RECOMMEND GOING TO ER FOR PAIN. PT IS ON DAY 5 OF OP ANTIBIOTIC IV Q 12 HR AT [facility]IA [facility] FOR UTI. Nursing Sepsis Screen: No Definite Risk Allergies and Home Medications Allergies Coded Allergies: Sulfa (Sulfonamide Antibiotics) (Unverified Allergy, Mild, 07/29/08) Iodinated Contrast- Oral and IV Dye (Verified Allergy, Unknown, 07/30/08) latex (Verified Allergy, Unknown, 07/30/08) povidone-iodine (Unverified Allergy, Unknown, 08/28/13) soap (Unverified Allergy, Unknown, 08/28/13) Uncoded Allergies: CONTRAST DYE (Allergy, Mild, 07/29/08) EES (Allergy, Mild, 07/29/08) Home Medications Albuterol Sulfate 1 Puff Puff, 2 PUFF IH Q4H PRN for SHORTNESS OF BREATH 1 PUFF = 90 MCG Prescribed by: JENNIFER HILARIO on 04/30/17 1512 Alprazolam 0.5 Mg Tablet, 0.5 MG PO TID PRN for ANXIETY, (Reported) Aspirin 81 Mg Tablet.dr, 81 MG PO DAILY Prescribed by: NILO JONES on 05/20/17 1122 Biotin 1,000 Mcg Tab.chew, 2,000 MCG PO DAILY, (Reported) TAKES 2 (1,000 MCG) GUMMIES Cranberry Conc/Ascorbic Acid 1 Each Capsule, 2 CAP PO HS, (Reported) Fluticasone Propionate 16 Gm [place].susp, 1 SPRAY NS DAILY, (Reported) L.acidoph & Paracasei,B.lactis 1 Each Capsule, 1 CAP PO HS, (Reported) Metformin HCl 500 Mg Tablet, 250 MG PO BID, (Reported) TAKES 1/2 OF A (500 MG) TABLET Montelukast Sodium 10 Mg Tablet, 10 MG PO HS Prescribed by: NILO JONES on 05/20/17 1122 Multivitamin 1 Each Tablet, 1 TAB PO DAILY, (Reported) Oxycodone HCl/Acetaminophen 1 Each Tablet, 1 TAB PO Q4H PRN for PAIN-MODERATE, ( Reported) Prednisone 20 Mg Tab, 20 MG PO DAILY Take 3 tabs(60mg)daily,decrease by 1/2 tab(10mg)every other day. Prescribed by: NILO JONES on 05/20/17 1122 Past Lenwvid-Dlywnj-Dwdkcq Hx Patient Social History Alcohol Use: Denies Use Number of Drinks Today: Alcohol Beverage of Choice: Wine Recreational Drug Use: No Smoking Status: Former Smoker Type Used: Cigarettes Former Smoker, Quit: Apr 13, 2017 2nd Hand Smoke Exposure: Yes Recent Foreign Travel: No Contact w/Someone Who Travel: No Recent Infectious Disease Expo: No Recent Hopitalizations: No Immunizations Up To Date Tetanus Booster (TDap): Unknown Date of Pneumonia Vaccine: Feb 28, 2011 Date of Influenza Vaccine: Mar 02, 2016 Seasonal Allergies Seasonal Allergies: Yes Surgeries History of Surgeries: Yes (HEEL CORD LENGTHENING, SPINAL FUSION, ischial tuberocity wound) Surgeries: Gallbladder, Orthopedic Respiratory History of Respiratory Disorde: Yes Respiratory Disorders: Pneumonia Currently Using CPAP: No Currently Using BIPAP: No Cardiovascular History of Cardiac Disorders: No Neurological History of Neurological Disord: Yes ([id number], NON-AMBULATORY) Reproductive System Hx Reproductive Disorders: Yes Female Reproductive Disorders: 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 Genitourinary History of Genitourinary Disor: Yes Genitourinary Disorders: Kidney Stones, Neurogenic Bladder, UTI-Chronic Gastrointestinal History of Gastrointestinal Di: Yes Gastrointestinal Disorders: Colitis, Chronic Diarrhea, Ulcer Musculoskeletal History of Musculoskeletal Dis: Yes ([id number] AND IS NON-AMBULATORY) Musculoskeletal Disorders: Osteoporosis, Arthritis, Fractures Endocrine History of Endocrine Disorders: Yes Endocrine Disorders: Diabetes, Non-Insulin dep HEENT History of HEENT Disorders: No Loss of Vision: Denies Hearing Impairment: Denies Cancer History of Cancer: No Psychosocial History of Psychiatric Problem: Yes Behavioral Health Disorders: Anxiety Integumentary History of Skin or Integumenta: Yes (CHRONIC SACRAL DECUB ULCER SINCE 2008) Blood Transfusions History of Blood Disorders: No Adverse Reaction to a Blood Tr: No Family Medical History Significant Family History: Cancer, Hypertension Family Medial History: FH: breast cancer 19 MOTHER, Onset:Unknown FH: pneumonia 19 FATHER, Onset:60 years & older Gout 19 FATHER, Onset:Unknown Hypertension 19 FATHER, Onset:Unknown Physical Exam Vital Signs Vital Signs - First Documented 06/27/17 19:23 Temp 99.3 Pulse 87 Resp 20 B/P (MAP) 137/63 (87) Pulse Ox 96 O2 Delivery Room Air Capillary Refill : Less Than 3 Seconds Progress/Results/Core Measures Suspected Sepsis Recent Fever Within 48 Hours: Yes Infection Criteria Present: Documented Infection New/Unexplained Altered Menta: No Sepsis Screen: No Definite Risk Sepsis Diagnosis: SIRS Temperature:99.3 Pulse: 87 Respiratory Rate: 20 Blood Pressure 137 /63 Mean: 87 Results/Orders My Orders Orders - DINAH CONTEH DO Ketorolac Injection (Toradol Injection) (06/27/17 20:15) Orphenadrine Injection (Norflex Injectio (06/27/17 20:15) Vital Signs/I&O Vital Sign - Last 12Hours 06/27/17 19:23 Temp 99.3 Pulse 87 Resp 20 B/P (MAP) 137/63 (87) Pulse Ox 96 O2 Delivery Room Air Capillary Refill : Less Than 3 Seconds Blood Pressure Mean: 87 Departure Impression Impression: Primary Impression: Chronic generalized pain Additional Impression: Chronic narcotic dependence Disposition: 01 HOME, SELF-CARE Condition: Stable Departure-Patient Inst. Referrals: GILBERTO PRICE DO (PCP) Primary Care Physician DWAINE BENITO (Family) Primary Care Physician Patient Instructions: Chronic Pain (DC) Add. Discharge Instructions: TAKE YOUR REGULAR MEDICATIONS PRESCRIBED FOLLOW UP WITH [facility] TOMORROW FOR FURTHER CARE AND MEDICATION REFILLS All discharge instructions reviewed with patient and/or family. Voiced understanding. DINAH CONTEH DO Jun 27, 2017 20:05
[2017-06-27 20:14] VITALS: BP 137/63
[2017-06-27] MEDS ORDERED: ORPHENADRINE 60 MG/2 ML (NORFLEX) AMP IV ONE (20:15)
[2017-06-27] MEDS ORDERED: KETOROLAC 30 MG/ML VIAL IVP ONE (20:15)
== END 2017-06-27 20:14 | disposition home or self-care (01) ==
LOC: EDUNIT# 18:34 → ER 18:36
DX: R52 Pain, unspecified (principal); G89.29 Other chronic pain; F11.20 Opioid dependence, uncomplicated; M81.0 Age-related osteoporosis without current pathological fracture; E11.9 Type 2 diabetes mellitus without complications; F41.9 Anxiety disorder, unspecified; Z80.3 Family history of malignant neoplasm of breast; Z91.041 Radiographic dye allergy status; Z91.040 Latex allergy status; Z88.2 Allergy status to sulfonamides; Z79.82 Long term (current) use of aspirin; Z79.84 Long term (current) use of oral hypoglycemic drugs; Z79.52 Long term (current) use of systemic steroids; Z87.891 Personal history of nicotine dependence; Z98.1 Arthrodesis status; Z87.01 Personal history of pneumonia (recurrent); Z87.448 Personal history of other diseases of urinary system; Z87.440 Personal history of urinary (tract) infections; Z87.19 Personal history of other diseases of the digestive system
CPT/HCPCS: 96374; 99281

== ENCOUNTER 2017-07-05 11:59 | Outpatient (RCR) | payer MEDICAID ==
[2017-06-23] MEDS: CATHETER FLUSH 10 ML SYR IV PRN ×2 (14:30→15:05)
[2017-06-23] MEDS: CEFEPIME 2 GM/NS 100 ML IVPB IV SCH ×2 (14:30)
[2017-06-23 15:30] VITALS: BP 109/45
[2017-06-24] MEDS: CATHETER FLUSH 10 ML SYR IV PRN ×3 (10:55→22:18)
[2017-06-24] MEDS: CEFEPIME 2 GM/NS 100 ML IVPB IV SCH ×4 (11:26→22:18)
[2017-06-24 12:10] VITALS: BP 104/52
[2017-06-24 22:48] VITALS: BP 142/65
[2017-06-25 12:30] VITALS: BP 115/49
[2017-06-25] MEDS: CEFEPIME 2 GM/NS 100 ML IVPB IV SCH ×4 (12:30→22:11)
[2017-06-25] MEDS: CATHETER FLUSH 10 ML SYR IV PRN (22:11)
[2017-06-25 22:58] VITALS: BP 144/63
[2017-06-26] MEDS: CATHETER FLUSH 10 ML SYR IV PRN ×2 (16:00→16:30)
[2017-06-26] MEDS: CEFEPIME 2 GM/NS 100 ML IVPB IV SCH ×2 (16:00)
[2017-06-26 16:45] VITALS: BP 119/66
[2017-06-27] MEDS: CEFEPIME 2 GM/NS 100 ML IVPB IV SCH ×4 (10:54→21:50)
[2017-06-27] MEDS: CATHETER FLUSH 10 ML SYR IV PRN ×2 (10:55→21:51)
[2017-06-27 11:31] VITALS: BP 120/50
[2017-06-27 21:52] VITALS: BP 169/70
[2017-06-27 22:51] VITALS: BP 169/70
[2017-06-28] MEDS: CEFEPIME 2 GM/NS 100 ML IVPB IV SCH ×4 (11:17→21:40)
[2017-06-28] MEDS: CATHETER FLUSH 10 ML SYR IV PRN (11:50)
[2017-06-28 12:04] VITALS: BP 112/56
[2017-06-28 21:30] VITALS: BP 132/60
[2017-06-28 22:35] VITALS: BP 110/56
[2017-06-29] MEDS: CEFEPIME 2 GM/NS 100 ML IVPB IV SCH ×4 (11:52→22:13)
[2017-06-29] MEDS: CATHETER FLUSH 10 ML SYR IV PRN ×3 (11:52→22:13)
[2017-06-29 12:46] VITALS: BP 109/45
[2017-06-29 23:05] VITALS: BP 157/57
[2017-06-30] MEDS: CEFEPIME 2 GM/NS 100 ML IVPB IV SCH ×2 (20:48)
[2017-06-30] MEDS: CATHETER FLUSH 10 ML SYR IV PRN (20:48)
[2017-06-30 20:50] VITALS: BP 123/56
[2017-07-01] MEDS: CATHETER FLUSH 10 ML SYR IV PRN ×2 (11:20→12:05)
[2017-07-01] MEDS: CEFEPIME 2 GM/NS 100 ML IVPB IV SCH ×4 (11:20→22:37)
[2017-07-01 12:05] VITALS: BP 97/42
[2017-07-01 22:44] VITALS: BP 100/46
[2017-07-02] MEDS: CATHETER FLUSH 10 ML SYR IV PRN (18:15)
[2017-07-02] MEDS: CEFEPIME 2 GM/NS 100 ML IVPB IV SCH ×2 (18:15)
[2017-07-02 18:23] VITALS: BP 140/52
[2017-07-03] MEDS: CATHETER FLUSH 10 ML SYR IV PRN ×2 (16:03→16:50)
[2017-07-03] MEDS: CEFEPIME 2 GM/NS 100 ML IVPB IV SCH ×2 (16:03)
[2017-07-03 16:55] VITALS: BP 112/59
[2017-07-04] MEDS: CATHETER FLUSH 10 ML SYR IV PRN (12:40)
[2017-07-04] MEDS: CEFEPIME 2 GM/NS 100 ML IVPB IV SCH ×2 (12:40)
[2017-07-04 12:45] VITALS: BP 140/65
[~2017-07-05] VITALS: Ht 152.4 cm; Wt 64.4 kg
[2017-07-05] MEDS: CEFEPIME 2 GM/NS 100 ML IVPB IV SCH ×2 (11:57)
[2017-07-05 11:58] VITALS: BP 144/73
[~2017-07-05 11:59] MED LIST changes: +CEFEPIME 2 GM/NS 100 ML IVPB IV SCH; +LIDOCAINE PF 1% 5 ML (XYLOCAINE) AMP ONE; -METF500T4 PO; +METF500T5 PO; -SENN-1 PO; +SENN-145 PO
[2017-07-05 13:13] VITALS: BP 144/73
== END 2017-09-21 | disposition home or self-care (01) ==
LOC: 4TH RCR 11:59
PROVIDERS: ATTEND Nurse Practitioner Community Health
DX: N39.0 Urinary tract infection, site not specified (principal); B96.5 Pseudomonas (aeruginosa) (mallei) (pseudomallei) as the cause of diseases classified elsewhere
CPT/HCPCS: 76937; 96365

== ENCOUNTER 2017-07-09 17:25 | Emergency (ER) | payer MEDICAID ==
[~2017-07-09] VITALS: Ht 154.9 cm; Wt 56.7 kg
[~2017-07-09 17:25] MED LIST changes: -CEFEPIME 2 GM/NS 100 ML IVPB IV SCH; -LIDOCAINE PF 1% 5 ML (XYLOCAINE) AMP ONE; +METF500T4 PO; -METF500T5 PO; +SENN-1 PO; -SENN-145 PO
[2017-07-09] MEDS ORDERED: ASPIRIN 81 MG CHEW (CHILDREN'S ASA) PO ONE (18:30)
--- NOTE | 2017-07-09 18:42 | ED Chest Pain ---
General Chief Complaint: Cardiac/General Problems Stated Complaint: CP Nursing Triage Note: Pt c/o intermittent chest pain beginning this afternoon. Pt reports pain is more of a heavy pressure. Nursing Sepsis Screen: No Definite Risk Source: patient Exam Limitations: no limitations (ALYSIA CASTRO MD) History of Present Illness Date Seen by Provider: Jul 09, 2017 Time Seen by Provider: 17:45 Initial Comments This 56 year old woman presents to the ER with complaints of mild chest heaviness intermittently throughout the afternoon. She states symptoms are worse when she thinks about it. At present the discomfort is minimal. She has mild to moderate coronary artery disease as described in a heart catheterization performed by Dr. Eli in April of this year. She also has nonischemic cardiomyopathy with an ejection fraction of around 20 percent. She has had some subtle shortness of breath. Her pain pinches a little bit with deep breaths. She took aspirin 81 mg at home. She rates her pain as 4/10 at its worst. It is now 1/10. She felt hot or flushed on the way to the hospital but was heavily clothed. Patient also has history of Eprfyrk-Roudh-Nbtdr and uses a wheelchair. Patient may be experiencing some anxiety due to difficulty finding staff to work for her. (ALYSIA CASTOR MD) Allergies and Home Medications Allergies Coded Allergies: Sulfa (Sulfonamide Antibiotics) (Unverified Allergy, Mild, 07/29/08) Iodinated Contrast- Oral and IV Dye (Verified Allergy, Unknown, 07/30/08) latex (Verified Allergy, Unknown, 07/30/08) povidone-iodine (Unverified Allergy, Unknown, 08/28/13) soap (Unverified Allergy, Unknown, 08/28/13) Uncoded Allergies: CONTRAST DYE (Allergy, Mild, 07/29/08) EES (Allergy, Mild, 07/29/08) Home Medications Albuterol Sulfate 1 Puff Puff, 2 PUFF IH Q4H PRN for SHORTNESS OF BREATH 1 PUFF = 90 MCG Prescribed by: JENNIFER HILARIO on 04/30/17 1512 Alprazolam 0.5 Mg Tablet, 0.5 MG PO TID PRN for ANXIETY, (Reported) Aspirin 81 Mg Tablet., 81 MG PO DAILY Prescribed by: NILO JONES on 05/20/17 112 Biotin 1,000 Mcg Tab.chew, 2,000 MCG PO DAILY, (Reported) TAKES 2 (1,000 MCG) GUMMIES Cranberry Conc/Ascorbic Acid 1 Each Capsule, 2 CAP PO HS, (Reported) Fluticasone Propionate 16 Gm [place].susp, 1 SPRAY NS DAILY, (Reported) L.acidoph & Paracasei,B.lactis 1 Each Capsule, 1 CAP PO HS, (Reported) Metformin HCl 500 Mg Tablet, 250 MG PO BID, (Reported) TAKES 1/2 OF A (500 MG) TABLET Montelukast Sodium 10 Mg Tablet, 10 MG PO HS Prescribed by: NILO JONES on 05/20/171121 Multivitamin 1 Each Tablet, 1 TAB PO DAILY, (Reported) Oxycodone HCl/Acetaminophen 1 Each Tablet, 1 TAB PO Q4H PRN for PAIN-MODERATE, ( Reported) Prednisone 20 Mg Tab, 20 MG PO DAILY Take 3 tabs(60mg)daily,decrease by 1/2 tab(10mg)every other day. Prescribed by: NILO JONES on 05/20/171121 Patient Home Medication List Home Medication List Reviewed: Yes (ALYSIA CASTRO MD) Home Medication List Reviewed: Yes ([facility]) Review of Systems Constitutional: no symptoms reported EENTM: No Symptoms Reported Respiratory: See HPI Cardiovascular: See HPI Gastrointestinal: No Symptoms Reported Genitourinary: No Symptoms Reported Musculoskeletal: no symptoms reported Skin: no symptoms reported Psychiatric/Neurological: See HPI Endocrine: No Symptoms Reported (ALYSIA CASTRO MD) Past Hybjzko-Xaxwmk-Mhixtx Hx Patient Social History Alcohol Use: Rarely Uses Number of Drinks Today: Alcohol Beverage of Choice: Wine Recreational Drug Use: No Smoking Status: Former Smoker Type Used: Cigarettes Former Smoker, Quit: Apr 13, 2017 2nd Hand Smoke Exposure: Yes Recent Foreign Travel: No Contact w/Someone Who Travel: No Recent Infectious Disease Expo: No Recent Hopitalizations: Yes (05/21 Heart Attack) Physical Abuse: No Sexual Abuse: No Mistreated: No Fear: No (ALYSIA CASTRO MD) Immunizations Up To Date Tetanus Booster (TDap): Unknown Date of Pneumonia Vaccine: Feb 28, 2011 Date of Influenza Vaccine: Mar 02, 2016 (ALYSIA CASTRO MD) Seasonal Allergies Seasonal Allergies: Yes (ALYSIA CASTRO MD) Surgeries History of Surgeries: Yes (HEEL CORD LENGTHENING, SPINAL FUSION, ischial tuberocity wound) Surgeries: Gallbladder, Orthopedic (LAYSIA CASTRO MD) Respiratory History of Respiratory Disorde: Yes Respiratory Disorders: Pneumonia Currently Using CPAP: No Currently Using BIPAP: No (ALYSIA CASTRO MD) Cardiovascular History of Cardiac Disorders: Yes Cardiac Disorders: Cardiomyopathy (nonischemic), Coronary Artery Disease (mild to moderate nonobstructive disease by heart catheter April 2017), Heart Attack (ALYSIA CASTRO MD) Neurological History of Neurological Disord: Yes ([id number], NON-AMBULATORY) (ALYSIA CASTRO MD) Reproductive System Hx Reproductive Disorders: Yes 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 (ALYSIA CASTRO MD) Genitourinary History of Genitourinary Disor: Yes Genitourinary Disorders: Kidney Stones, Neurogenic Bladder, UTI-Chronic (AYLSIA CASTRO MD) Gastrointestinal History of Gastrointestinal Di: Yes Gastrointestinal Disorders: Colitis, Chronic Diarrhea, Ulcer (ALYSIA CASTRO MD) Musculoskeletal History of Musculoskeletal Dis: Yes ([id number] AND IS NON-AMBULATORY) Musculoskeletal Disorders: Osteoporosis, Arthritis, Fractures (ALYSIA CASTRO MD) Endocrine History of Endocrine Disorders: Yes Endocrine Disorders: Diabetes, Non-Insulin dep (ALYSIA CASTRO MD) HEENT History of HEENT Disorders: No Loss of Vision: Denies Hearing Impairment: Denies (ALYSIA CASTRO MD) Cancer History of Cancer: No (ALYSIA CASTRO MD) Psychosocial History of Psychiatric Problem: Yes Behavioral Health Disorders: Anxiety Suicide Risk Score: 1 (ALYSIA CASTRO MD) Integumentary History of Skin or Integumenta: Yes (CHRONIC SACRAL DECUB ULCER SINCE 2008) (ALYSIA CASTRO MD) Blood Transfusions History of Blood Disorders: No Adverse Reaction to a Blood Tr: No (ALYSIA CASTRO MD) Family Medical History Significant Family History: Cancer, Hypertension Family Medial History: FH: breast cancer 19 MOTHER, Onset:Unknown FH: pneumonia 19 FATHER, Onset:60 years & older Gout 19 FATHER, Onset:Unknown Hypertension 19 FATHER, Onset:Unknown (ALYSIA CASTRO MD) Family Medial History: FH: breast cancer 19 MOTHER, Onset:Unknown FH: pneumonia 19 FATHER, Onset:60 years & older Gout 19 FATHER, Onset:Unknown Hypertension 19 FATHER, Onset:Unknown ([facility] SINGH) Physical Exam Vital Signs Vital Signs - First Documented 07/09/17 17:41 Temp 98.3 Pulse 71 Resp 14 B/P (MAP) 105/88 (94) Pulse Ox 94 O2 Delivery Room Air (BE[facility] SINGH) Vital Signs Capillary Refill : Less Than 3 Seconds (ALYSIA CASTRO MD) General Appearance: No Apparent Distress, WD/WN HEENT: PERRL/EOMI, Normal ENT Inspection Neck: Normal Inspection Respiratory: Lungs Clear, Normal Breath Sounds, No Accessory Muscle Use, No Respiratory Distress, Decreased Breath Sounds (diminished in the bases) Cardiovascular: Regular Rate, Rhythm, No Edema, No Murmur Gastrointestinal: Non Tender, Soft Extremity: Non Tender, No Calf Tenderness, No Pedal Edema, Other (muscular atrophy of the extremities from Safazkk-Gwfzw-Tkrtq) Neurologic/Psychiatric: Alert, Oriented x3, No Motor/Sensory Deficits, Normal Mood/Affect, 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 as 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 Skin: Normal Color, Warm/Dry (ALYSIA CASTRO MD) Progress/Results/Core Measures Results/Orders Lab Results Laboratory Tests Test 07/09/17 17:50 07/09/17 17:53 07/09/17 21:20 Range/Units B-Type Natriuretic Peptide 32.8 <100.0 PG/ML White Blood Count 8.6 4.3-11.0 10^3/uL Red Blood Count 4.21 L 4.35-5.85 10^6/uL Hemoglobin 13.3 11.5-16.0 G/DL Hematocrit 41 35-52 % Mean Corpuscular Volume 98 80-99 FL Mean Corpuscular Hemoglobin 32 25-34 PG Mean Corpuscular Hemoglobin Concent 32 32-36 G/DL Red Cell Distribution Width 14.0 10.0-14.5 % Platelet Count 242 130-400 10^3/uL Mean Platelet Volume 10.1 7.4-10.4 FL Neutrophils (%) (Auto) 53 42-75 % Lymphocytes (%) (Auto) 37 12-44 % Monocytes (%) (Auto) 8 0-12 % Eosinophils (%) (Auto) 2 0-10 % Basophils (%) (Auto) 1 0-10 % Neutrophils # (Auto) 4.6 1.8-7.8 X 10^3 Lymphocytes # (Auto) 3.2 1.0-4.0 X 10^3 Monocytes # (Auto) 0.7 0.0-1.0 X 10^3 Eosinophils # (Auto) 0.2 0.0-0.3 10^3/uL Basophils # (Auto) 0.0 0.0-0.1 10^3/uL Prothrombin Time 13.6 12.2-14.7 SEC INR Comment 1.0 0.8-1.4 Activated Partial Thromboplast Time 29 24-35 SEC Sodium Level 140 135-145 MMOL/L Potassium Level 4.2 3.6-5.0 MMOL/L Chloride Level 104 98-107 MMOL/L Carbon Dioxide Level 30 21-32 MMOL/L Anion Gap 6 5-14 MMOL/L Blood Urea Nitrogen 12 7-18 MG/DL Creatinine 0.40 L 0.60-1.30 MG/DL Estimat Glomerular Filtration Rate > 60 BUN/Creatinine Ratio 30 Glucose Level 92 70-105 MG/DL Calcium Level 9.7 8.5-10.1 MG/DL Magnesium Level 2.1 1.8-2.4 MG/DL Total Bilirubin 0.4 0.1-1.0 MG/DL Aspartate Amino Transf (AST/SGOT) 27 5-34 U/L Alanine Aminotransferase (ALT/SGPT) 22 0-55 U/L Alkaline Phosphatase 54 40-136 U/L Myoglobin 26.9 10.0-92.0 NG/ML Troponin I < 0.30 < 0.30 <0.30 NG/ML Total Protein 7.4 6.4-8.2 GM/DL Albumin 4.3 3.2-4.5 GM/DL ([facility]) Medications Given in ED Current Medications Medications Dose Ordered Sig/Bo Route Start Time Stop Time Status Last Admin Dose Admin Aspirin 243 mg ONCE ONCE PO 07/09/17 18:30 3/29/18 18:31 DC 07/09/17 18:58 243 MG (BEST SINGH) Vital Signs/I&O Vital Sign - Last 12Hours 07/09/17 07/09/17 17:41 17:53 Temp 98.3 Pulse 71 Resp 14 B/P (MAP) 105/88 (94) Pulse Ox 94 98 O2 Delivery Room Air Room Air (BEST SINGH) Blood Pressure Mean: 94 Progress Note #1: Time: 20:22 Progress Note Workup was unremarkable. Patient's pain resolved. I discussed the case with Dr. Valente who suggested admission for observation versus four-hour cardiac rule out. Patient's last episode of pain started around 17:00 so repeat troponin should be drawn at 21:00. Patient wishes to return home but is trying to find staff to care for her tonight. Progress Note #2: Time: 20:39 Progress Note Care is being transferred to Dr. Singh at this time. Patient was offered a four-hour rule out (with troponin draw 21:00) or admission for observation based on Dr. Valente's recommendations. Patient's situation is complicated as she has been unable to find staff to care for her at home and she is completely dependent on others for transfers and mobility. Patient prefers to go home if she can find staff. I have ordered the troponin for 21:00 and transferred care to Dr. Singh. (ALYSIA CASTRO MD) Progress Note : Time: 20:40 Progress Note Assume care of the patient at 840 and had already seen the patient at 1800. Patient's pain is pretty much resolved and her repeat troponin was normal. She has someone to take care of her lined up at home and she is ready to go home. We 'll going to let her discharge. She has plans to follow-up with Dr. Valente outpatient. (BEST SINGH) ECG Initial ECG Impression Date: Jul 09, 2017 Initial ECG Impression Time: 17:29 Initial ECG Rate: 72 Initial ECG Rhythm: Normal Sinus Comment Sinus rhythm with no ST elevation or depression. No abnormal intervals or axis deviation. (ALYSIA CASTRO MD) Diagnostic Imaging Diagonstic Imaging: Xray Plain Films/CT/US/NM/MRI: chest Comments Chest x-ray viewed by me and report reviewed. See report below: NAME: LEW GUZMAN [facility] REC#: [id number] PT STATUS: REG ER : 1960 PHYSICIAN: ALYSIA CASTRO MD ADMIT DATE: 07/09/17/ER Signed Date of Exam:07/09/17 CHEST 1 VIEW, AP/PA ONLY INDICATION: Chest pain. COMPARISON: Prior examination from 05/18/17. EXAMINATION: Single view of the chest was obtained. FINDINGS: There is cardiomegaly. Lungs are clear. There is no pleural effusion or pneumothorax. Mediastinum is unremarkable. Spinal fixation rods seem to be extending from the upper thoracic spine through the lumbar spine. IMPRESSION: 1. No acute cardiopulmonary abnormality. 2. Cardiomegaly. Dictated by: Dictated on workstation # [id number] Dict: 07/09/171922 Trans: 07/09/171929 PJE [id number] Interpreted by: MEDINA SIMON MD Electronically signed by: MEDINA SIMON MD 07/09/171929 (ALYSIA CASTRO MD) Departure Impression Impression: Primary Impression: Chest pain Qualified Codes: R07.9 - Chest pain, unspecified Additional Impression: Anxiety Disposition: 01 HOME, SELF-CARE Condition: Stable Departure-Patient Inst. Decision time for Depature: 22:31 (BEST SINGH) Referrals: GILBERTO PRICE DO (PCP) Primary Care Physician DWAINE BENITO (Family) Primary Care Physician Patient Instructions: Chest Pain (DC) Add. Discharge Instructions: Call Dr. Valente's office at [phone] and requests an appointment for follow-up from your ER visit for chest pain. Please return to the ER if you have other worrisome signs such as chest pain, nausea, fevers, shortness of breath etc. All discharge instructions reviewed with patient and/or family. Voiced understanding. Copy Copies To 1: GILBERTO PRICE DO; GRANT VALENTE MD FACP FAC CCDS ALYSIA CASTRO MD Jul 09, 2017 18:42 [facility]H Jul 09, 2017 22:32
[2017-07-09 18:43] LABS: BASOPHILS % (AUTO) 1 % (0-10); EOSINOPHILS # (AUTO) 0.2 10^3/uL (0.0-0.3); EOSINOPHILS % (AUTO) 2 % (0-10); HEMATOCRIT 41 % (35-52); HEMOGLOBIN 13.3 G/DL (11.5-16.0); LYMPHOCYTES # (AUTO) 3.2 X 10^3 (1.0-4.0); LYMPHOCYTES % (AUTO) 37 % (12-44); MEAN CORPUSCULAR HEMOGLOBIN 32 PG (25-34); MEAN CORPUSCULAR HGB CONC 32 G/DL (32-36); MEAN CORPUSCULAR VOLUME 98 FL (80-99); MEAN PLATELET VOLUME 10.1 FL (7.4-10.4); MONOCYTES # (AUTO) 0.7 X 10^3 (0.0-1.0); MONOCYTES % (AUTO) 8 % (0-12); NEUTROPHILS # (AUTO) 4.6 X 10^3 (1.8-7.8); NEUTROPHILS % (AUTO) 53 % (42-75); PLATELET COUNT 242 10^3/uL (130-400); RED BLOOD COUNT 4.21 10^6/uL (4.35-5.85); WHITE BLOOD COUNT 8.6 10^3/uL (4.3-11.0)
[2017-07-09 18:51] LABS: PROTHROMBIN TIME PATIENT 13.6 SEC (12.2-14.7)
[2017-07-09 18:53] LABS: ALANINE AMINOTRANSFERASE 22 U/L (0-55); ALBUMIN 4.3 GM/DL (3.2-4.5); ALKALINE PHOSPHATASE 54 U/L (40-136); BILIRUBIN,TOTAL 0.4 MG/DL (0.1-1.0); BUN/CREATININE RATIO 30; CALCIUM 9.7 MG/DL (8.5-10.1); CARBON DIOXIDE 30 MMOL/L (21-32); CHLORIDE 104 MMOL/L (98-107); GFR ESTIMATED > 60; GLUCOSE 92 MG/DL (70-105); MAGNESIUM 2.1 MG/DL (1.8-2.4); POTASSIUM 4.2 MMOL/L (3.6-5.0); SODIUM 140 MMOL/L (135-145); TOTAL PROTEIN 7.4 GM/DL (6.4-8.2)
[2017-07-09 19:00] LABS: MYOGLOBIN SERUM 26.9 NG/ML (10.0-92.0)
--- NOTE | 2017-07-09 19:26 | Diagnostic Imaging Report ---
INDICATION: Chest pain. COMPARISON: Prior examination from 05/18/17. EXAMINATION: Single view of the chest was obtained. FINDINGS: There is cardiomegaly. Lungs are clear. There is no pleural effusion or pneumothorax. Mediastinum is unremarkable. Spinal fixation rods seem to be extending from the upper thoracic spine through the lumbar spine. IMPRESSION: 1. No acute cardiopulmonary abnormality. 2. Cardiomegaly. Dictated by: Dictated on workstation # [id number]
[2017-07-09 22:48] VITALS: BP 155/60
== END 2017-07-09 22:47 | disposition home or self-care (01) ==
LOC: EDUNIT# 17:25 → ER 17:27
DX: R07.89 Other chest pain (principal); F41.9 Anxiety disorder, unspecified; Z87.01 Personal history of pneumonia (recurrent); I25.10 Atherosclerotic heart disease of native coronary artery without angina pectoris; I42.0 Dilated cardiomyopathy; M81.0 Age-related osteoporosis without current pathological fracture; E11.9 Type 2 diabetes mellitus without complications; I25.2 Old myocardial infarction; Z98.1 Arthrodesis status; Z80.3 Family history of malignant neoplasm of breast; Z87.442 Personal history of urinary calculi; Z87.440 Personal history of urinary (tract) infections; Z87.19 Personal history of other diseases of the digestive system; Z87.448 Personal history of other diseases of urinary system; Z91.041 Radiographic dye allergy status; Z79.82 Long term (current) use of aspirin; Z88.2 Allergy status to sulfonamides; Z79.84 Long term (current) use of oral hypoglycemic drugs; Z87.891 Personal history of nicotine dependence; Z91.040 Latex allergy status
CPT/HCPCS: 36415; 71045; 80053; 83735; 83874; 83880; 84484; 85025; 85610; 85730; 93005; 93041

== ENCOUNTER 2017-08-14 11:31 | Emergency (ER) | payer MEDICAID ==
[~2017-08-14] VITALS: Ht 144.8 cm; Wt 52.6 kg
[~2017-08-14 11:31] MED LIST changes: -METF500T4 PO; +METF500T5 PO; -SENN-1 PO; +SENN-145 PO
[2017-08-14] MEDS ORDERED: NS IV 1000 ML 1,000 ML ONE (11:32)
[2017-08-14] MEDS ORDERED: NS IV 1000 ML 1,000 ML IV PRN (11:56)
[2017-08-14] MEDS ORDERED: NOREPINEPHRINE 4 MG/4 ML (LEVOPHED) AMP IV ONE ×2 (11:58→14:17)
[2017-08-14] MEDS ORDERED: NS (IVPB) 250 ML ONE ×2 (11:58→14:18)
[2017-08-14 12:27] LABS: ABG BASE EXCESS -12.5 MMOL/L (-2.5-2.5); ABG OXYGEN SATURATION 99 % (94-100); ABG PCO2 44 MMHG (35-45); ABG PO2 172 MMHG (79-93); ABG TCO2 16.2 MMOL/L (21.0-31.0); ALLENS TEST YES-POS
[2017-08-14 12:28] LABS: INSPIRED O2 60%; PATIENT TEMP 97.5; VENTILATOR YES
[2017-08-14 12:30] LABS: ABG PH 7.15 (7.37-7.43)
--- NOTE | 2017-08-14 12:34 | ED General ---
General Chief Complaint: Respiratory Problems Stated Complaint: LETHARGIC,LOW O2 Source of Information: Caregiver, EMS Exam Limitations: Physical Impairments (SHIRLEY KIRKPATRICK MD) History of Present Illness Date Seen by Provider: August 14, 2017 Time Seen by Provider: 11:32 Initial Comments Here by EMS with report of being lethargic and having a low oxygen. The caregiver reports that she was sick yesterday and did not want to come to the ER. The emergency management system director was not available apparently. The caregiver this morning and arrived and found the patient lethargic and progressively worsened. Ultimately the caregiver called EMS who found the patient to be unresponsive with an O2 sat of 71 percent and blood sugar at about 60. IV was established and D50 half amp was given and repeated and oxygen was applied. Patient was able to mumble some afterwards. On arrival here, patient answering only very simple questions with limited response. Appeared to have almost agonal breathing with this and certainly labored. Patient unable to provide other information. Caregiver not at initially available but gave information later. Timing/Duration: 1-2 Days, Getting Worse Severity: Severe Associated Systoms: Shortness of Air, Weakness (SHIRLEY KIRKPATRICK MD) Allergies and Home Medications Allergies Coded Allergies: Sulfa (Sulfonamide Antibiotics) (Unverified Allergy, Mild, 07/29/08) Iodinated Contrast- Oral and IV Dye (Verified Allergy, Unknown, 07/30/08) latex (Verified Allergy, Unknown, 07/30/08) povidone-iodine (Unverified Allergy, Unknown, 08/28/13) soap (Unverified Allergy, Unknown, 08/28/13) Uncoded Allergies: CONTRAST DYE (Allergy, Mild, 07/29/08) EES (Allergy, Mild, 07/29/08) Home Medications Albuterol Sulfate 1 Puff Puff, 2 PUFF IH Q4H PRN for SHORTNESS OF BREATH 1 PUFF = 90 MCG Prescribed by: JENNIFER HILARIO on 04/30/17 1512 Alprazolam 0.5 Mg Tablet, 0.5 MG PO TID PRN for ANXIETY, (Reported) Aspirin 81 Mg Tablet.dr, 81 MG PO DAILY Prescribed by: NILO JONES on 05/20/17 1122 Biotin 1,000 Mcg Tab.chew, 2,000 MCG PO DAILY, (Reported) TAKES 2 (1,000 MCG) GUMMIES Cranberry Conc/Ascorbic Acid 1 Each Capsule, 2 CAP PO HS, (Reported) Fluticasone Propionate 16 Gm Smyer.susp, 1 SPRAY NS DAILY, (Reported) L.acidoph & Paracasei,B.lactis 1 Each Capsule, 1 CAP PO HS, (Reported) Metformin HCl 500 Mg Tablet, 250 MG PO BID, (Reported) TAKES 1/2 OF A (500 MG) TABLET Montelukast Sodium 10 Mg Tablet, 10 MG PO HS Prescribed by: NILO JONES on 05/20/17 112 Multivitamin 1 Each Tablet, 1 TAB PO DAILY, (Reported) Oxycodone HCl/Acetaminophen 1 Each Tablet, 1 TAB PO Q4H PRN for PAIN-MODERATE, ( Reported) Prednisone 20 Mg Tab, 20 MG PO DAILY Take 3 tabs(60mg)daily,decrease by 1/2 tab(10mg)every other day. Prescribed by: NILO JONES on 05/20/171121 Patient Home Medication List Home Medication List Reviewed: Yes (SHIRLEY KIRKPATRICK MD) Review of Systems Constitutional: see HPI Respiratory: short of breath Unable to complete review of systems due to severe clinical condition. (SHIRLEY KIRKPATRICK MD) Past Lkggipz-Rqugnl-Nqsavm Hx Past Med/Social Hx: Reviewed Nursing Past Med/Soc Hx (SHRILEY KIRKPATRICK MD) Patient Social History Alcohol Beverage of Choice: Wine Type Used: Cigarettes Former Smoker, Quit: Apr 13, 2017 2nd Hand Smoke Exposure: Yes Recent Hopitalizations: Yes (05/21 Heart Attack) (WARREN BREWSTER APRN) Alcohol Use: Occasionally Uses Smoking Status: Former Smoker (SHIRLEY KIRKPATRICK MD) Immunizations Up To Date Tetanus Booster (TDap): Unknown Date of Pneumonia Vaccine: Feb 28, 2011 Date of Influenza Vaccine: Mar 02, 2016 (WARREN BREWSTER APRN) Seasonal Allergies Seasonal Allergies: Yes (WARREN BREWSTER APRN) Past Medical History Surgeries: Yes (HEEL CORD LENGTHENING, SPINAL FUSION, ischial tuberocity wound) Gallbladder, Orthopedic Respiratory: Yes Pneumonia Currently Using CPAP: No Currently Using BIPAP: No Cardiac: Yes Cardiomyopathy, Coronary Artery Disease, Heart Attack Neurological: Yes ([id number], NON-AMBULATORY) Reproductive Disorders: Yes 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 Genitourinary: Yes Kidney Stones, Neurogenic Bladder, UTI-Chronic Gastrointestinal: Yes Colitis, Chronic Diarrhea, Ulcer Musculoskeletal: Yes ([id number] AND IS NON-AMBULATORY) Osteoporosis, Arthritis, Fractures Endocrine: Yes Diabetes, Non-Insulin dep HEENT: No Loss of Vision: Denies Hearing Impairment: Denies Cancer: No Psychosocial: Yes Anxiety Integumentary: Yes (CHRONIC SACRAL DECUB ULCER SINCE 2008) Blood Disorders: No Adverse Reaction/Blood Tranf: No (WARREN BREWSTER APRN) Family Medical History FH: breast cancer 19 MOTHER, Onset:Unknown FH: pneumonia 19 FATHER, Onset:60 years & older Gout 19 FATHER, Onset:Unknown Hypertension 19 FATHER, Onset:Unknown Cancer, Hypertension (WARREN BREWSTER APRN) No Pertinent Family Hx (SHIRLEY KIRKPATRICK MD) Physical Exam-Suspected Sepsis Physical Exam Vital Signs Vital Signs - First Documented 08/14/17 12:00 Pulse 118 Resp 15 Pulse Ox 100 FiO2 60 (SHIRLEY KIRKPATRICK MD) Vital Signs Capillary Refill : (WARREN BREWSTER APRN) General Appearance: Chronically ill, Severe Distress HEENT: PERRL/EOMI, Pharynx Normal, Other (mucous membranes) Neck: Full Range of Motion, Supple Respiratory: Lungs Clear, Normal Breath Sounds, Respiratory Distress, Other ( agonal breathing) Cardiovascular: No Murmur, Tachycardia Gastrointestinal: Non Tender, Soft (63 kg) Extremity: Non Tender, No Pedal Edema, Other (cachectic legs from defect. No edema) Neurologic/Psychiatric: Disoriented, Motor Weakness Skin: cool, pallor (SHIRLEY KIRKPATRICK MD) Focused Exam Lactate Level 08/14/17 12:29: Lactic Acid Level 4.84*H (SHIRLEY KIRKPATRICK MD) Lactic Acid Level Laboratory Tests Test 08/14/17 12:29 Lactic Acid Level 4.84 MMOL/L (0.50-2.00) *H (SHIRLEY KIRKPATRICK MD) Procedures/Interventions Lumen: triple Central Line Procedure: sterile drapes applied, sterile dressing applied Position: subclavian (R) Anesthesia: Lidocaine Volume Anesthetic (ccs): 5 Complications: none Post Position: sutured, good blood return, position confirmed w/ CXR (WARREN BREWSTER APRN) Date of ETT Placement: August 14, 2017 Time of ETT Placement: 11:40 Intubation Method: orotracheal Tube Size: 7.5 Medications: Etomidate, Succinylcholine Positive End Tide CO2: Yes Breath Sounds after Intubation: bilateral-equal Intubation Complications: no complications Post Intubation Xray: Yes Intubated 2 attempts due to very dry mucous membranes. ET tube placed at 23 cm at the teeth. Positive end-tidal CO2 noted. (SHIRLEY KIRKPATRICK MD) Progress/Results/Core Measures Suspected Sepsis SIRS Temperature: Pulse: Respiratory Rate: Laboratory Tests 08/14/17 12:29: White Blood Count 14.7H Blood Pressure / Mean: 08/14/17 12:29: Lactic Acid Level 4.84*H Laboratory Tests 08/14/17 12:29: Creatinine 0.82, INR Comment 1.8H, Platelet Count 186, Total Bilirubin 2.8H (WARREN BREWSTER APRN) Results/Orders Lab Results Laboratory Tests Test 08/14/17 12:20 08/14/17 12:29 08/14/17 13:51 Range/Units Blood Gas Puncture Site L BRACH R BRACH Blood Gas Patient Temperature 97.5 97.3 Arterial Blood pH 7.15 *L 7.09 *L 7.37-7.43 Arterial Blood Partial Pressure CO2 44 49 H 35-45 MMHG Arterial Blood Partial Pressure O2 172 H 135 H 79-93 MMHG Arterial Blood HCO3 15 *L 14 *L 23-27 MMOL/L Arterial Blood Total CO2 16.2 L 15.8 L 21.0-31.0 MMOL/L Arterial Blood Oxygen Saturation 99 98 94-100 % Arterial Blood Base Excess -12.5 L -13.9 L -2.5-2.5 MMOL/L Addy Test YES-POS YES-POS Blood Gas Ventilator Setting YES YES Blood Gas Inspired Oxygen 60% 60% White Blood Count 14.7 H 4.3-11.0 10^3/uL Red Blood Count 3.73 L 4.35-5.85 10^6/uL Hemoglobin 11.6 11.5-16.0 G/DL Hematocrit 36 35-52 % Mean Corpuscular Volume 97 80-99 FL Mean Corpuscular Hemoglobin 31 25-34 PG Mean Corpuscular Hemoglobin Concent 32 32-36 G/DL Red Cell Distribution Width 14.4 10.0-14.5 % Platelet Count 186 130-400 10^3/uL Mean Platelet Volume 9.8 7.4-10.4 FL Neutrophils (%) (Auto) 95 H 42-75 % Lymphocytes (%) (Auto) 1 L 12-44 % Monocytes (%) (Auto) 3 0-12 % Eosinophils (%) (Auto) 1 0-10 % Basophils (%) (Auto) 0 0-10 % Neutrophils # (Auto) 14.0 H 1.8-7.8 X 10^3 Lymphocytes # (Auto) 0.2 L 1.0-4.0 X 10^3 Monocytes # (Auto) 0.4 0.0-1.0 X 10^3 Eosinophils # (Auto) 0.1 0.0-0.3 10^3/uL Basophils # (Auto) 0.0 0.0-0.1 10^3/uL Neutrophils % (Manual) 29 % Lymphocytes % (Manual) 2 % Monocytes % (Manual) 1 % Eosinophils % (Manual) 0 % Basophils % (Manual) 0 % Metamyelocytes % 18 % Myelocytes % 3 % Band Neutrophils 47 % Blood Morphology Comment NORMAL Prothrombin Time 21.0 H 12.2-14.7 SEC INR Comment 1.8 H 0.8-1.4 Activated Partial Thromboplast Time 37 H 24-35 SEC Sodium Level 134 L 135-145 MMOL/L Potassium Level 3.5 L 3.6-5.0 MMOL/L Chloride Level 104 98-107 MMOL/L Carbon Dioxide Level 18 L 21-32 MMOL/L Anion Gap 12 5-14 MMOL/L Blood Urea Nitrogen 37 H 7-18 MG/DL Creatinine 0.82 0.60-1.30 MG/DL Estimat Glomerular Filtration Rate > 60 BUN/Creatinine Ratio 45 Glucose Level 115 H 70-105 MG/DL Lactic Acid Level 4.84 *H 0.50-2.00 MMOL/L Calcium Level 7.3 L 8.5-10.1 MG/DL Total Bilirubin 2.8 H 0.1-1.0 MG/DL Aspartate Amino Transf (AST/SGOT) 49 H 5-34 U/L Alanine Aminotransferase (ALT/SGPT) 51 0-55 U/L Alkaline Phosphatase 73 40-136 U/L Troponin I < 0.30 <0.30 NG/ML Total Protein 4.8 L 6.4-8.2 GM/DL Albumin 2.7 L 3.2-4.5 GM/DL TSH [place] Testing 1.92 0.35-4.94 UIU/ML (SHIRLEY KIRKPATRICK MD) My Orders Orders - SHIRLEY KIRKPATRICK MD Ns Iv 1000 Ml (Sodium Chloride 0.9%) (08/14/17 11:32) Arterial Blood Gas (08/14/17 12:05) Vasopressin Injection (Pitressin Injecti (08/14/17 12:45) Hydrocortisone Injection (Solu-Cortef In (08/14/17 13:00) Piperacillin Sodium/Tazobactam (Zosyn Vi (08/14/17 13:15) Echo W Doppler/Color Flow (08/14/17 13:16) Arterial Blood Gas (08/14/17 13:27) Ns (Ivpb) (Sodium C... W/Fentanyl Injec (08/14/17 13:45) Ns (Ivpb) (Sodium C... W/Midazolam Injec (08/14/17 13:45) Vancomycin Injection (Vancomycin Injecti (08/14/17 14:30) Norepinephrine (Levophed) (08/14/17 14:30) Norepinephrine (Levophed) (08/14/17 14:17) Ns (Ivpb) (Sodium Chloride 0.9%) (08/14/17 14:18) (SHIRLEY KIRKPATRICK MD) Medications Given in ED Current Medications Medications Dose Ordered Sig/Bo Route Start Time Stop Time Status Last Admin Dose Admin Hydrocortisone Sodium Succinate 100 mg ONCE ONCE IV 08/14/17 13:00 08/14/17 13:01 DC 08/14/17 13:11 100 MG Norepinephrine 4 mg STK-MED ONCE IV 08/14/17 11:58 08/14/17 12:02 DC 08/14/17 12:19 4 MG Piperacillin Sod/ Tazobactam Sod 4.5 gm/Dextrose 100 ml @ 200 mls/hr ONCE ONCE IV 08/14/17 13:15 08/14/17 13:44 DC 08/14/17 13:50 200 MLS/HR Sodium Chloride 250 ml @ ud STK-MED ONCE .ROUTE 08/14/17 11:58 08/14/17 12:03 DC 08/14/17 12:20 0 MLS/HR (SHIRLEY KIRKPATRICK MD) Vital Signs/I&O 08/14/17 08/14/17 12:00 14:06 Pulse 118 126 Resp 15 14 Pulse Ox 100 97 FiO2 60 40 (SHIRLEY KIRKPATRICK MD) Vital Signs/I&O Capillary Refill : (WARREN BREWSTER APRN) Progress Note : Progress Note Seen and evaluated on arrival by EMS. Patient increasingly unresponsive. Elected to intubate emergently with central line placement afterwards. Intubated with etomidate and succinylcholine for RSI. Postintubation sedation with Versed and fentanyl. Labs, UA, blood cultures, lactic acid, EKG and normal saline 1 L bolus ordered. This was on top of the 1 L normal saline bolus initiated by EMS. Levophed initiated at 15 g. One to 25: I discussed the case with the critical care doctor who is currently out of town. We will initiate vasopressin as Levophed is not maintaining blood pressure well. Blood pressure ranging in the 60s over 40s to 70s over 50s. 1300: Levophed max at 30 and vasopressin is initiated. Hydrocortisone 100 mg IV ordered. We will continue IV fluids at 250 mL an hour and this was increased to 500 mL an hour. Zosyn 4.5 g IV ordered. Continue sedation with Versed and fentanyl. Rocuronium 50 mg IV ordered and given. 1330: I have discussed the case with the primary physician on-call, Dr. Demarco, on-call for [facility]. This will be a difficult management in our hospital currently without critical care available. I discussed the case with Dr. Duncan, on-call for hospitalist and she will assist with management as needed. Patient would be better served in transfer to larger facility but currently not stable. 1340: Stat cardiac echo in progress. We will consider Masood-Synephrine or move to dopamine/dobutamine based on those results. Blood pressure has somewhat improved and appears to be stabilized and in the 80s to 90s systolic currently. We will initiate Versed and fentanyl drip for sedation. Heart rate currently 120s with O2 sat 98 percent on vent at rate of 14 with tidal volume of 400 and PEEP of 5 and 60 percent FiO2. Patient has no urine output at this point. 1400 : Patient has sufficiently stabilized at this time with blood pressure 104/69 and has had several blood pressures greater than 90 systolic now. She is currently on Levophed and vasopressin. Still without urine output. I have initiated transfer proceedings with [facility] in [place], [place]. Dr. Romo is the anodize machine operator on-call. 1410: I was able to speak with him and he has accepted the patient for admission. Patient will go by flight due to significant illness requiring multiple pressors and the need for rapid transport. Patient's condition is critical but stable at this point. 1422: Blood pressure 101/73 with heart rate 125 and O2 sat 97 percent. Current vent settings are tidal volume 500 with rate of 14 and PEEP of 5 and FiO2 has been decreased to 35 percent. 1433: I did discuss the Case with the sorter lumber straightener Dr Koch. The preliminary read of the 2D cardiac echo shows EF of approximately 15-20%. 1445: Flight team here in report given by me and nursing to flight team. (SHIRLEY KIRKPATRICK MD) ECG Initial ECG Impression Date: August 14, 2017 Initial ECG Impression Time: 14:42 Initial ECG Rate: 125 Initial ECG Rhythm: S.Tach Initial ECG Comparisson: Changed Comment Sinus tachycardia with left axis deviation. Change from previous in that there is some ST depression and in the lateral leads. No evidence of ST elevation SD. Interpreted by me. (SHIRLEY KIRKPATRICK MD) Diagnostic Imaging Diagonstic Imaging: Xray Plain Films/CT/US/NM/MRI: chest Comments VIA [facility], [facility]. [place], [place] NAME: LEW GUZMAN [facility] REC#: [id number] PT STATUS: REG ER : 1960 PHYSICIAN: AWRREN BREWSTER RUG SAMPLE BEVELER ADMIT DATE: 08/14/17/ER Draft Date of Exam:08/14/17 CHEST 1 VIEW, AP/PA ONLY INDICATION: NG tube placement. TIME OF EXAM: 12:37 p.m. Correlation is made with prior study 07/09/2017. Right IJ line has been placed with tip overlying the SVC. No pneumothorax is seen. An endotracheal tube appears to have the tip above the dariusz. An NG tube pass below the diaphragm. Spinal instrumentation throughout the thoracic spine is noted. No effusion is seen. Lungs are clear. IMPRESSION: Satisfactory placement of various lines and catheters. No complicating features are identified. Dictated on workstation # [id number] Dict: 08/14/17 1245 Trans: 08/14/17 1252 [facility] [id number] Interpreted by: COSME STOKES MD Electronically signed by: (SHIRLEY KIRKPATRICK MD) Critical Care Note Critical Care Start Time: 11:30 Stop Time: 14:30 Total Time (minutes) 90 (SHIRLEY KIRKPATRICK MD) Departure Communication (Admissions) 1628- [facility] arrived quite some time ago to transport the patient. As she was being transferred her blood pressure dropped from 100 range systolic to 60 systolic on a upper arm cuff. Unable to be obtained on the [employer] transport monitor. Anesthesia was consult of her arterial line placement. Dr. Ny arrived and was able to place a 22-gauge right radial arterial line under ultrasound guidance. This revealed a systolic pressure of 130s. Dopamine had been pulled but not yet started. She remains on the vasopressin, levophed drips. Diffuse mottling/pale cool skin noted (WARREN BREWSTER APRN) Impression Primary Impression: Septic shock Additional Impression: Respiratory failure with hypoxia Qualified Codes: J96.01 - Acute respiratory failure with hypoxia Disposition: 02 XFER SHT-TRM HOSP Condition: Critical Transfer Time Spoke to Accepting Phy: 14:10 Transfer Facility: [place], [place],Dr. Romo accepting Method of Transfer: Air (SHIRLEY KIRKPATRICK MD) Departure-Patient Inst. Referrals: GILBERTO PRICE DO (PCP) Primary Care Physician DWAINE BENITO (Family) Primary Care Physician WARREN BREWSTER APRN August 14, 2017 12:34 SHIRLEY KIRKPATRICK MD August 14, 2017 13:33
[2017-08-14 12:38] LABS: BASOPHILS % (AUTO) 0 % (0-10); EOSINOPHILS # (AUTO) 0.1 10^3/uL (0.0-0.3); EOSINOPHILS % (AUTO) 1 % (0-10); HEMATOCRIT 36 % (35-52); HEMOGLOBIN 11.6 G/DL (11.5-16.0); LYMPHOCYTES # (AUTO) 0.2 X 10^3 (1.0-4.0); LYMPHOCYTES % (AUTO) 1 % (12-44); MEAN CORPUSCULAR HEMOGLOBIN 31 PG (25-34); MEAN CORPUSCULAR HGB CONC 32 G/DL (32-36); MEAN CORPUSCULAR VOLUME 97 FL (80-99); MEAN PLATELET VOLUME 9.8 FL (7.4-10.4); MONOCYTES # (AUTO) 0.4 X 10^3 (0.0-1.0); MONOCYTES % (AUTO) 3 % (0-12); NEUTROPHILS % (AUTO) 95 % (42-75); PLATELET COUNT 186 10^3/uL (130-400); RED BLOOD COUNT 3.73 10^6/uL (4.35-5.85); RED CELL DISTRIBUTION WIDTH 14.4 % (10.0-14.5); WHITE BLOOD COUNT 14.7 10^3/uL (4.3-11.0)
[2017-08-14] MEDS ORDERED: NS IV SCH (12:45)
[2017-08-14] MEDS ORDERED: VASOPRESSIN IV SCH (12:45)
[2017-08-14 12:52] LABS: INR 1.8 (0.8-1.4)
--- NOTE | 2017-08-14 12:53 | Diagnostic Imaging Report ---
INDICATION: NG tube placement. TIME OF EXAM: 12:37 p.m. Correlation is made with prior study 07/09/2017. Right IJ line has been placed with tip overlying the SVC. No pneumothorax is seen. An endotracheal tube appears to have the tip above the dariusz. An NG tube pass below the diaphragm. Spinal instrumentation throughout the thoracic spine is noted. No effusion is seen. Lungs are clear. IMPRESSION: Satisfactory placement of various lines and catheters. No complicating features are identified. Dictated by: Dictated on workstation # [id number]
[2017-08-14 13:00] LABS: ALANINE AMINOTRANSFERASE 51 U/L (0-55); ALBUMIN 2.7 GM/DL (3.2-4.5); ALKALINE PHOSPHATASE 73 U/L (40-136); BILIRUBIN,TOTAL 2.8 MG/DL (0.1-1.0); BUN/CREATININE RATIO 45; CALCIUM 7.3 MG/DL (8.5-10.1); CARBON DIOXIDE 18 MMOL/L (21-32); CHLORIDE 104 MMOL/L (98-107); CREATININE SERUM 0.82 MG/DL (0.60-1.30); GFR ESTIMATED > 60; GLUCOSE 115 MG/DL (70-105); POTASSIUM 3.5 MMOL/L (3.6-5.0); SODIUM 134 MMOL/L (135-145); TOTAL PROTEIN 4.8 GM/DL (6.4-8.2)
[2017-08-14] MEDS ORDERED: HYDROCORTISONE 100 MG/2 ML (Solu-CORTEF) VIAL IV ONE (13:00)
[2017-08-14 13:05] LABS: BAND NEUTROPHILS 47 %; BASOPHILS % (MANUAL) 0 %; EOSINOPHILS % (MANUAL) 0 %; LYMPHOCYTES % (MANUAL) 2 %; METAMYELOCYTES % 18 %; MONOCYTES % (MANUAL) 1 %; MYELOCYTES % 3 %; NEUTROPHILS % (MANUAL) 29 %; RBC MORPH NORMAL
[2017-08-14] MEDS ORDERED: PIPERACILLIN SODIUM/TAZOBACTAM 4.5 GM in D5W 100 ML IVPB 100 ML IV ONE (13:15)
[2017-08-14 13:19] LABS: TSH (THYROID ANALYZER) 1.92 UIU/ML (0.35-4.94)
[2017-08-14] MEDS ORDERED: MIDAZOLAM INJECTION FOR DRIPS 50 MG in NS (IVPB) 90 ML IV SCH (13:45)
[2017-08-14] MEDS ORDERED: fentaNYL INJECTION 1,250 MCG in NS (IVPB) 225 ML IV SCH (13:45)
[2017-08-14 13:59] LABS: ABG BASE EXCESS -13.9 MMOL/L (-2.5-2.5); ABG OXYGEN SATURATION 98 % (94-100); ABG PCO2 49 MMHG (35-45); ABG PO2 135 MMHG (79-93); ABG TCO2 15.8 MMOL/L (21.0-31.0)
[2017-08-14 14:01] LABS: ABG PH 7.09 (7.37-7.43)
[2017-08-14 14:02] LABS: ALLENS TEST YES-POS; INSPIRED O2 60%; PATIENT TEMP 97.3; VENTILATOR YES
[2017-08-14] MEDS ORDERED: VANCOMYCIN INJECTION 1,000 MG in NS (IVPB) 250 ML IV ONE (14:30)
[2017-08-14] MEDS ORDERED: NOREPINEPHRINE 4 MG in NS (IVPB) 250 ML IV SCH (14:30)
[2017-08-14 14:48] LABS: CLARITY,URINE VERY CLOUDY; COLOR,URINE AMBER; GLUCOSE, URINE (UA) NEGATIVE (NEGATIVE); KETONES,URINE 1+ (NEGATIVE); LEUKOCYTE ESTERASE ,URINE 3+ (NEGATIVE); NITRITE,URINE POSITIVE (NEGATIVE); PH,URINE 5 (5-9); PROTEIN,URINE 2+ (NEGATIVE); UROBILINOGEN,URINE 1 MG/DL (NORMAL)
[2017-08-14] MEDS ORDERED: ROCURONIUM 10 MG/ML 5 ML SYRINGE IV ONE (15:00)
[2017-08-14] MEDS ORDERED: fentaNYL INJECTION 100 MCG/2 ML AMP ONE (15:00)
[2017-08-14] MEDS ORDERED: MIDAZOLAM 5 MG/5 ML (VERSED) VIAL ONE (15:00)
[2017-08-14] MEDS ORDERED: ETOMIDATE IV SOLN 20 MG/10 ML VIAL ONE (15:00)
[2017-08-14] MEDS ORDERED: SUCCINYLCHOLINE INJ 100 MG/5 ML SYR ONE (15:00)
[2017-08-14 15:03] LABS: BACTERIA,URINE LARGE /HPF; BILIRUBIN,URINE 2+ (NEGATIVE); CALCIUM OXALATE CRYSTALS,UR MODERATE /LPF; WBC,URINE 25-50 /HPF
[2017-08-14] MEDS ORDERED: DOPamine DRIP 250 ML IV ONE (15:59)
--- NOTE | 2017-08-14 16:19 | Anesthesia-Procedure Note ---
Procedures/Interventions Procedure Start/Stop/Diagnosis Date of Procedure: August 14, 2017 Start Time: 15:40 Referring Physician: Dr Mccullough Preprocedural Diagnosis: Hypotension, Pneumonia, Sepsis Brief History Anesthesia Note ([id number]) Called to the ED for arterial line placement. Pt with Hx of Iuhtxoi-Cvagw-Ignjp , currently intubated with hypotension, pneumonia and sepsis requiring an arterial line prior to transfer to a higher level of care. Attempted Rt and Lt radial and Lt brachial using ultrasound without success. 22 G catheter threaded into Rt radial artery with ultrasound guidance and was secured with a sterile tegaderm with good waveform. Pt is in critical condition and we will be available if needed prior to her transfer. Stop Time: 16:05 MARTÍN MANNING DO August 14, 2017 16:19
[2017-08-14 17:40] VITALS: BP 60/42
[2017-08-14] MEDS ORDERED: LACTATED RINGERS 1,000 ML IV ONE (17:41)
[2017-08-15] MEDS ORDERED: NS IV 1000 ML 2,000 ML ONE (07:11)
== END 2017-08-14 16:31 | disposition short-term general hospital (02) ==
LOC: EDUNIT# 11:31 → ER 11:32
DX: A41.9 Sepsis, unspecified organism (principal); J96.90 Respiratory failure, unspecified, unspecified whether with hypoxia or hypercapnia; I25.2 Old myocardial infarction; I42.9 Cardiomyopathy, unspecified; M81.0 Age-related osteoporosis without current pathological fracture; E11.9 Type 2 diabetes mellitus without complications; F41.9 Anxiety disorder, unspecified; I25.10 Atherosclerotic heart disease of native coronary artery without angina pectoris; Z87.442 Personal history of urinary calculi; Z87.19 Personal history of other diseases of the digestive system; Z80.3 Family history of malignant neoplasm of breast; Z87.01 Personal history of pneumonia (recurrent); Z98.1 Arthrodesis status; Z88.2 Allergy status to sulfonamides; Z91.041 Radiographic dye allergy status; Z91.040 Latex allergy status; Z88.8 Allergy status to other drugs, medicaments and biological substances; Z91.012 Allergy to eggs; Z79.51 Long term (current) use of inhaled steroids; Z79.82 Long term (current) use of aspirin; Z79.84 Long term (current) use of oral hypoglycemic drugs; Z79.52 Long term (current) use of systemic steroids; Z87.891 Personal history of nicotine dependence
CPT/HCPCS: 36415; 36600; 71045; 80053; 81000; 82805; 83605; 84443; 84484; 85007; 85027; 85610; 85730; 87040; 87070; 87088; 87186; 87205; 93005; 93306; 94799; 96361; 96365; 96366; 96367; 96375; 99291; 99292